=== PATIENT | male | born 1940 | race Caucasian/White ===

== ENCOUNTER 2020-03-29 15:00 | Inpatient (IN) | payer MEDICARE, SELFPAY ==
[2020-03-29] VITALS (25 sets, daily range): BP systolic 105–166; BP diastolic 73–102; PULSE 73–92; RESP 12–22; TEMP 36.6–37.1; O2SAT 92–100; BMI 30.1
--- NOTE | 2020-03-29 15:09 | ED_ITS ---
Documented by User: [email or web address] Salmeron 03/29/20 16:45 HPI - Abdominal Pain General: Chief Complaint: Abdominal Pain Stated Complaint: possible hernia disruption/ sent from [place] Time Seen by Provider: 03/29/20 15:06 Source: patient Mode of arrival: ambulatory Limitations: no limitations History of Present Illness: HPI narrative: Patient is a 79-year-old male who presents to ED today for an evaluation of a lower abdominal mass/hernia. Patient was initially seen at [facility] and referred to the emergency department for evaluation. Patient tells me he has had a chronic hernia to the area for several years. He states he never has had any form of general surgery evaluation. He states approximately 5 days ago he noticed the mass almost doubl ing in size and states since that time he has not been able to have a bowel movement. He reports passing minimal gas. Has not had any vomiting. He denies fever/chills/body aches. MD elicited complaint: abdominal pain Pain Consistency: constant Associated Symptoms: Reports constipation (no BM in 5 days); Denies chills, fever(s), nausea and vomiting Review of Systems Const: Denies: fever(s), chills, body aches or malaise Card: Denies: chest pain Resp: Denies: dyspnea GI: Reports: abdominal pain and constipation (no BM in 5 days); Denies: nausea or vomiting : Reports: urinary dribbling Musc: Denies: neck pain or back pain Skin/Breast: Denies: rash Neuro: Denies: headache(s), numbness in extremities, weakness in extremities or sensory changes [facility] ED PFSH: Medical History Anasarca ASHD (arteriosclerotic heart disease) Cardiomyopathy CHF (congestive heart failure) Cleft palate and cleft lip Diabetes Dyslipidemia HTN (hypertension) Myocardial infarction Surgical History Cleft palate Surgically repaired History of tonsillectomy Leg fracture, left Lower leg fractures repaired with rods and bone grafts S/P PTCA (percutaneous transluminal coronary angioplasty) Family History Other Diabetes Social History Smoking and tobacco status: never smoked Alcohol intake: current Alcohol intake frequency: holidays/special occasions only Household members: spouse Marital status: Physical Exam Const: COMMON NORMALS: no acute distress, patient oriented x3, no limitations and alert GI: OTHER: pt has extremely R > L inguinal hernias (hernia is almost a foot in diameter); mass is hard and erythematous with overlying warmth; the mass is so edematous that pts testicles and penis are embedded into it Extremity: OTHER: bilateral LE pitting edema that pt states is chronic Neuro: COMMON NORMALS: patient oriented x3 SENSORIUM/ORIENTATION: Yes alert Course Consultations: Consultation #1: Dr. Mooney has spoken to Dr. Edmonds who evaluated patient in ED and will take to OR Vital Signs: Vital signs: Vital Signs Temperature 98.8 F 03/29/20 15:07 Pulse Rate 89 03/29/20 18:13 Respiratory Rate 22 H 03/29/20 16:04 Blood Pressure 166/102 03/29/20 16:04 Pulse Oximetry 95 03/29/20 18:13 MDM - Abdominal Pain MDM Narrative: Medical decision making narrative: Dr. Mooney also evaluated patient and agrees with pending workup. We have already spoken to Dr. Edmonds who will come see patient in ED in between surgeries. Lab Data: Labs: Lab Results 03/29/20 03/29/20 03/29/20 Range/Units 15:28 15:28 15:28 WBC 9.5 (4.0-10.0) 10^3/ uL RBC 4.27 (4.1-5.3) 10^6/u L Hgb 12.0 (11.7-16.6) g/dL Hct 37.0 L (42.0-52.0) % MCV 86.7 (80-94) fL MCH 28.1 (28.0-34.0) pg MCHC 32.4 (30.0-36.0) g/dL RDW 15.5 H (12.1-15.1) % Plt Count 259 (130-400) 10^3/c mm MPV 11.5 H (7.4-10.4) fL Neut % (Auto) 79.1 % Lymph % (Auto) 13.9 % [place] % (Auto) 5.9 % Eos % (Auto) 0.3 % Baso % (Auto) 0.4 % Neut # (Auto) 7.52 (1.8-7.7) 10^3/u L Lymph # (Auto) 1.3 (0.8-4.8) 10^3/u L [place] # (Auto) 0.6 (0.2-0.9) 10^3/u L Eos # (Auto) 0.0 (0.0-0.8) 10^3/u L Baso # (Auto) 0.0 (0.0-0.1) 10^3/u L Nucleated RBC % (a uto) 0 % Nucleated RBCs # 0.0 /100WBC Sodium 132 L (136-145) mmol/L Potassium 4.6 (3.5-5.1) mmol/L Chloride 94 L (98-107) mmol/L Carbon Dioxide 26 (22-29) mmol/L Anion Gap 16.6 (5-19) BUN 26 H (8-23) mg/dL Creatinine 1.4 H (0.7-1.2) mg/dL GFR Calculation Not Reportable Glucose 252 H (65-115) mg/dL Estimat Average Gl ucose Hemoglobin A1c (4.0-6.0) % Calculated Osmolal ity 279 L (285-295) mOsm/k g Lactic Acid 1.6 (0.5-2.2) mmol/L Calcium 10.2 (8.5-10.5) mg/dL Total Bilirubin 1.0 (0.15-1.2) mg/dL AST 28 (0-40) U/L ALT 19 (0-41) U/L Alkaline Phosphata se 204 H (40-130) IU/L NT-Pro-B Natriuret Pep 6647 H (0-450) pg/mL Total Protein 8.7 (6.6-8.7) g/dL Albumin 4.2 (3.5-5.2) g/dL Globulin 4.5 (1.3-4.6) g/dL 03/29/20 Range/Units 15:28 WBC (4.0-10.0) 10^3/ uL RBC (4.1-5.3) 10^6/u L Hgb (11.7-16.6) g/dL Hct (42.0-52.0) % MCV (80-94) fL MCH (28.0-34.0) pg MCHC (30.0-36.0) g/dL RDW (12.1-15.1) % Plt Count (130-400) 10^3/c mm MPV (7.4-10.4) fL Neut % (Auto) % Lymph % (Auto) % [place] % (Auto) % Eos % (Auto) % Baso % (Auto) % Neut # (Auto) (1.8-7.7) 10^3/u L Lymph # (Auto) (0.8-4.8) 10^3/u L [place] # (Auto) (0.2-0.9) 10^3/u L Eos # (Auto) (0.0-0.8) 10^3/u L Baso # (Auto) (0.0-0.1) 10^3/u L Nucleated RBC % (a uto) % Nucleated RBCs # /100WBC Sodium (136-145) mmol/L Potassium (3.5-5.1) mmol/L Chloride (98-107) mmol/L Carbon Dioxide (22-29) mmol/L Anion Gap (5-19) BUN (8-23) mg/dL Creatinine (0.7-1.2) mg/dL GFR Calculation Glucose (65-115) mg/dL Estimat Average Gl ucose 200 Hemoglobin A1c 8.6 H (4.0-6.0) % Calculated Osmolal ity (285-295) mOsm/k g Lactic Acid (0.5-2.2) mmol/L Calcium (8.5-10.5) mg/dL Total Bilirubin (0.15-1.2) mg/dL AST (0-40) U/L ALT (0-41) U/L Alkaline Phosphata se (40-130) IU/L NT-Pro-B Natriuret Pep (0-450) pg/mL Total Protein (6.6-8.7) g/dL Albumin (3.5-5.2) g/dL Globulin (1.3-4.6) g/dL Imaging Data ^: CXR: Radiologist's impression: [address] [place] [address] XRay Report Signed Patient: Rhett Cotto Unit #: [id number] : 1940 Age/Sex: 79 / M ADM Date: 03/29/20 Loc: ER Room/Bed: Attending Dr: Ordering Provider/Ordering MD: Ritu Glover Date of Service: 03/29/20 Procedure(s): XR chest 1V portable [id number] Accession Number(s): [id number] Report Number: [id number] PROCEDURE INFORMATION: Exam: XR Chest, 1 View Exam date and time: 03/29/2020 4:05 PM Age: 79 years old Clinical indication: Pre-operative exam; Cardiovascular screening and respiratory screening exam; Additional info: Admission/surgery, pre op TECHNIQUE: Imaging protocol: XR of the chest Views: 1 view. COMPARISON: CR XR chest 2V* [id number] 02/10/2020 10:33 AM FINDINGS: Lungs: Unremarkable. No consolidation. Pleural space: Unremarkable. No obvious pleural effusion. No pneumothorax. Heart/Mediastinum: Mild cardiomegaly, unchanged. Vasculature: Tortuous aorta. Moderate aortic arch atherosclerotic calcification. Bones/joints: Unremarkable. XR/XR chest 1V portable [id number] IMPRESSION: No acute process evident. Stable mild cardiomegaly. Dictated By: Chase Watson MD Signed By: Chase Watson MD Signed Date/Time: 03/29/20 1642 DD/ 1640 Discharge Plan Discharge Patient Disposition: Admitted As Inpatient Clinical Impression: Incarcerated inguinal hernia Condition: Stable Referrals: Jose Manuel Mooney MD [Primary Care Provider] - Discharge Date/Time: 03/29/20 18:12 Sign Out Sign Out Data: Patient Sign Out occurred on 03/29/20 at 17:10. Patient's care was discussed, and care was transferred from to [facility]. Coding Level of Care Code ED Cake Winder for Chg Fwd Exam Problem Focused Documented by User: Sophie Mooney 03/29/20 19:51 HPI - Abdominal Pain General: Chief Complaint: Abdominal Pain Stated Complaint: possible hernia disruption/ sent from [place] Time Seen by Provider: 03/29/20 15:06 [facility] ED PFSH: Medical History Anasarca ASHD (arteriosclerotic heart disease) Cardiomyopathy CHF (congestive heart failure) Cleft palate and cleft lip Diabetes Dyslipidemia HTN (hypertension) Myocardial infarction Surgical History Cleft palate Surgically repaired History of tonsillectomy Leg fracture, left Lower leg fractures repaired with rods and bone grafts S/P PTCA (percutaneous transluminal coronary angioplasty) Family History Other Diabetes Social History Smoking and tobacco status: never smoked Alcohol intake: current Alcohol intake frequency: holidays/special occasions only Household members: spouse Marital status: Course Vital Signs: Vital signs: Vital Signs Temperature 98.8 F 03/29/20 15:07 Pulse Rate 89 03/29/20 18:13 Respiratory Rate 22 H 03/29/20 16:04 Blood Pressure 166/102 03/29/20 16:04 Pulse Oximetry 95 03/29/20 18:13 MDM - Abdominal Pain MDM Narrative: Medical decision making narrative: Patient was seen and evaluated by me I agree with Ritu Glover PAs assessment and plan. Patient has a large hernia that was made much worse after he was straining on the commode to have a bowel movement. This is been going on for the past few days. Patient's been seen and examined by Dr. Edmonds with the plan to take to surgery. Dr. Zaman is been consulted and will see the patient for medical management. Lab Data: Attestation: I reviewed the patient's lab results. Labs: Lab Results 03/29/20 03/29/20 03/29/20 Range/Units 15:28 15:28 15:28 WBC 9.5 (4.0-10.0) 10^3/ uL RBC 4.27 (4.1-5.3) 10^6/u L Hgb 12.0 (11.7-16.6) g/dL Hct 37.0 L (42.0-52.0) % MCV 86.7 (80-94) fL MCH 28.1 (28.0-34.0) pg MCHC 32.4 (30.0-36.0) g/dL RDW 15.5 H (12.1-15.1) % Plt Count 259 (130-400) 10^3/c mm MPV 11.5 H (7.4-10.4) fL Neut % (Auto) 79.1 % Lymph % (Auto) 13.9 % [place] % (Auto) 5.9 % Eos % (Auto) 0.3 % Baso % (Auto) 0.4 % Neut # (Auto) 7.52 (1.8-7.7) 10^3/u L Lymph # (Auto) 1.3 (0.8-4.8) 10^3/u L [place] # (Auto) 0.6 (0.2-0.9) 10^3/u L Eos # (Auto) 0.0 (0.0-0.8) 10^3/u L Baso # (Auto) 0.0 (0.0-0.1) 10^3/u L Nucleated RBC % (a uto) 0 % Nucleated RBCs # 0.0 /100WBC Sodium 132 L (136-145) mmol/L Potassium 4.6 (3.5-5.1) mmol/L Chloride 94 L (98-107) mmol/L Carbon Dioxide 26 (22-29) mmol/L Anion Gap 16.6 (5-19) BUN 26 H (8-23) mg/dL Creatinine 1.4 H (0.7-1.2) mg/dL GFR Calculation Not Reportable Glucose 252 H (65-115) mg/dL Estimat Average Gl ucose Hemoglobin A1c (4.0-6.0) % Calculated Osmolal ity 279 L (285-295) mOsm/k g Lactic Acid 1.6 (0.5-2.2) mmol/L Calcium 10.2 (8.5-10.5) mg/dL Total Bilirubin 1.0 (0.15-1.2) mg/dL AST 28 (0-40) U/L ALT 19 (0-41) U/L Alkaline Phosphata se 204 H (40-130) IU/L NT-Pro-B Natriuret Pep 6647 H (0-450) pg/mL Total Protein 8.7 (6.6-8.7) g/dL Albumin 4.2 (3.5-5.2) g/dL Globulin 4.5 (1.3-4.6) g/dL 03/29/20 Range/Units 15:28 WBC (4.0-10.0) 10^3/ uL RBC (4.1-5.3) 10^6/u L Hgb (11.7-16.6) g/dL Hct (42.0-52.0) % MCV (80-94) fL MCH (28.0-34.0) pg MCHC (30.0-36.0) g/dL RDW (12.1-15.1) % Plt Count (130-400) 10^3/c mm MPV (7.4-10.4) fL Neut % (Auto) % Lymph % (Auto) % [place] % (Auto) % Eos % (Auto) % Baso % (Auto) % Neut # (Auto) (1.8-7.7) 10^3/u L Lymph # (Auto) (0.8-4.8) 10^3/u L [place] # (Auto) (0.2-0.9) 10^3/u L Eos # (Auto) (0.0-0.8) 10^3/u L Baso # (Auto) (0.0-0.1) 10^3/u L Nucleated RBC % (a uto) % Nucleated RBCs # /100WBC Sodium (136-145) mmol/L Potassium (3.5-5.1) mmol/L Chloride (98-107) mmol/L Carbon Dioxide (22-29) mmol/L Anion Gap (5-19) BUN (8-23) mg/dL Creatinine (0.7-1.2) mg/dL GFR Calculation Glucose (65-115) mg/dL Estimat Average Gl ucose 200 Hemoglobin A1c 8.6 H (4.0-6.0) % Calculated Osmolal ity (285-295) mOsm/k g Lactic Acid (0.5-2.2) mmol/L Calcium (8.5-10.5) mg/dL Total Bilirubin (0.15-1.2) mg/dL AST (0-40) U/L ALT (0-41) U/L Alkaline Phosphata se (40-130) IU/L NT-Pro-B Natriuret Pep (0-450) pg/mL Total Protein (6.6-8.7) g/dL Albumin (3.5-5.2) g/dL Globulin (1.3-4.6) g/dL Discharge Plan Discharge Patient Disposition: Admitted As Inpatient Clinical Impression: Incarcerated inguinal hernia Condition: Stable Referrals: Jose Manuel Mooney MD [Primary Care Provider] - Discharge Date/Time: 03/29/20 18:12 Sign Out Sign Out Data: Patient Sign Out occurred on 03/29/20 at 17:10. Patient's care was discussed, and care was transferred from to [facility]. Coding Level of Care Code ED Cake Winder for Chg Fwd Exam Problem Focused
--- NOTE | 2020-03-29 15:15 | CTR_ITS ---
PROCEDURE INFORMATION: Exam: CT Abdomen And Pelvis With Contrast Exam date and time: 03/29/2020 4:03 PM Age: 79 years old Clinical indication: Abdominal tenderness and constipation and nausea and vomiting; Additional info: Large pelvic mass/hernia/pain/constipation TECHNIQUE: Imaging protocol: Computed tomography of the abdomen and pelvis with intravenous contrast. Radiation optimization: All CT scans at this facility use at least one of these dose optimization techniques: automated exposure control; mA and/or kV adjustment per patient size (includes targeted exams where dose is matched to clinical indication); or iterative reconstruction. Contrast material: VISI; Contrast volume: 95 ml; Contrast route: INTRAVENOUS (IV); COMPARISON: No relevant prior studies available. RADIATION DOSE METRICS: Total DLP (mGy-cm): 1574.7 FINDINGS: Liver: Normal. No mass. Gallbladder and bile ducts: Normal. No calcified stones. No ductal dilation. Pancreas: Normal. No ductal dilation. Spleen: Normal. No splenomegaly. Adrenals: Normal. No mass. Kidneys and ureters: 7 and 3.2 cm simple appearing right renal cysts. Left kidney contains 3 subcm low-density probable cysts. Stomach and bowel: See Soft tissues finding. Appendix: No evidence of appendicitis. Intraperitoneal space: See Soft tissues finding. Vasculature: Tortuous aorta and iliac arteries with mild to moderate atherosclerotic calcification. Considerable atherosclerotic calcification both proximal renal arteries with possible focal stenoses. Lymph nodes: Unremarkable. No enlarged lymph nodes. Bladder: Unremarkable as visualized. Reproductive: Mildly enlarged prostate with posterior calcifications, chronic. Bones/joints: No acute fracture. Soft tissues: Large right inguinal hernia. Right inguinal hernia sac measures 24 x 19 x 15 cm and fills the scrotum. Sac contains loops of distal small bowel and associated mesentery as well as cecum and portion of appendix. Hernia resulting in at least a partial small bowel obstruction with fluid dilated loops of overlying intraperitoneal mid small bowel and transition zone at level of hernia neck. Hernia sac contains a moderate amount of ascites suggesting incarceration or less likely strangulation. Smaller 8-9 cm uncomplicated left inguinal hernia containing portion of left colon. CT/CT abdomen pelvis w con* [id number] IMPRESSION: 1.) Large right inguinal hernia. Hernia sac contains loops of distal small bowel and associated mesentery as well as cecum and portion of appendix. Hernia resulting in at least a partial small bowel obstruction with fluid dilated loops of overlying intraperitoneal mid small bowel and transition zone at level of hernia neck. Hernia sac contains a moderate amount of ascites suggesting incarceration or less likely strangulation. 2.) Several cm uncomplicated left inguinal hernia containing portion of left colon. 3.) Additional chronic findings as described above. COMMENTS: Consistent with the [place] [employer]'s Incidental Findings Committee white paper (J Am Pilar Radiol 2018): Any incidental renal lesion less than 1 cm or classified as too small to characterize, or any incidental cystic renal lesion characterized as simple-appearing, is likely benign. No follow-up imaging is recommended for these lesions per consensus recommendations based on imaging criteria. Radiation Dose CTDIVOL = (mGy): DLP = 1574.7 (mGy-cm)
--- NOTE | 2020-03-29 15:27 | XRR_ITS ---
PROCEDURE INFORMATION: Exam: XR Chest, 1 View Exam date and time: 03/29/2020 4:05 PM Age: 79 years old Clinical indication: Pre-operative exam; Cardiovascular screening and respiratory screening exam; Additional info: Admission/surgery, pre op TECHNIQUE: Imaging protocol: XR of the chest Views: 1 view. COMPARISON: CR XR chest 2V* [id number] 02/10/2020 10:33 AM FINDINGS: Lungs: Unremarkable. No consolidation. Pleural space: Unremarkable. No obvious pleural effusion. No pneumothorax. Heart/Mediastinum: Mild cardiomegaly, unchanged. Vasculature: Tortuous aorta. Moderate aortic arch atherosclerotic calcification. Bones/joints: Unremarkable. XR/XR chest 1V portable [id number] IMPRESSION: No acute process evident. Stable mild cardiomegaly.
--- NOTE | 2020-03-29 15:27 | ECG_ITS ---
[facility] Test Date: 2020-03-29 Pat Name: Rhett Cotto Department: Room: Gender: Male Protein Specialist: : 1940 Requested By: Ritu Glover Order Number: [id number] Russ MD: Ashlie Kirk M.D. Measurements Intervals [place] Rate: 90 P: ME: -1 QRS: -37 QRSD: 157 T: 97 QT: 371 QTc: 455 Interpretive Statements Normal sinus rhythm INTRAVENTRICULAR CONDUCTION DELAY [130+ ms QRS DURATION] LATERAL MYOCARDIAL INFARCTION , PROBABLY OLD [40+ ms Q WAVE AND/OR ST/T ABNORMALITY IN I/aVL/V5/V6] INFERIOR MYOCARDIAL INFARCTION , OF INDETERMINATE AGE [40+ ms Q WAVE AND/OR ST/T ABNORMALITY IN II/aVF] Compared to ECG 05/03/2017 10:42:37 Intraventricular conduction delay now present Sinus rhythm no longer present Myocardial infarct finding still present Electronically Signed On 03-29-2020 20:09:42 CDT by Ashlie Kirk M.D. [id number]
[2020-03-29 15:39] LABS: Basophils % 0.4 %; Eosinophils % 0.3 %; Lymphocytes # 1.3 10^3/uL (0.8-4.8); Lymphocytes % 13.9 %; Mean Corpuscular HGB Conc 32.4 g/dL (30.0-36.0); Mean Corpuscular Hemoglobin 28.1 pg (28.0-34.0); Mean Corpuscular Volume 86.7 fL (80-94); Mean Platelet Volume 11.5 fL (7.4-10.4); Monocytes # 0.6 10^3/uL (0.2-0.9); Monocytes % 5.9 %; Neutrophils # 7.52 10^3/uL (1.8-7.7); Neutrophils % 79.1 %; Nucleated Red Blood Cells % 0 %; Platelet Count 259 10^3/cmm (130-400); Red Blood Count 4.27 10^6/uL (4.1-5.3); Red Cell Distribution Width 15.5 % (12.1-15.1); White Blood Count 9.5 10^3/uL (4.0-10.0)
[2020-03-29 15:57] LABS: Lactic Sepsis W/Reflex 1.6 mmol/L (0.5-2.2)
[2020-03-29] MEDS: ondansetron 2 mg/ML SDV 2 mL 4 MG IVP (15:57)
--- NOTE | 2020-03-29 15:58 | P.HP_ITS ---
Providers/Chief Complaint Primary Care Provider: Jose Manuel Mooney MD Chief Complaint: possible hernia disruption/ sent from [place] History of Present Illness Rhett Cotto is a 79 year old male who has known about some bilateral inguinal hernias for perhaps 20 years. They never gave him much in the way of problems but he says this past weekend he became constipated and did not have a bowel movement on Friday. He apparently took some laxatives Friday night and was trying to strain on the commode on Friday (3 days ago) and felt something tear and his scrotum went from what he considers normal size to very large. He has been at home for the last 3 days in pain, but was stubborn according to his and did not want to go see the doctor. He has been passing very little flatus and has not had any bowel movements. Despite that, he says that he has not been nauseated and has not vomited. He did eat some vegetable soup last night. He has been able to urinate, although it is more difficult given the size of his scrotum with displacement of his penis. He denies any fevers or chills. Review of Systems General: Reports: 10 or more systems reviewed and unremarkable except in HPI and below Card: Reports: edema and swelling of feet/ankles (Chronic) GI: Reports: abdominal pain Medications/Allergies Home Medications Medication Instructions Recorded Confirmed Last Taken Type aspirin 81 mg tablet,delayed 81 mg PO DAILY 11/22/19 03/29/20 03/28/20 History release furosemide 40 mg tablet 40 mg PO BID tab 11/23/19 03/29/20 03/28/20 History metformin 500 mg tablet 500 mg PO DAILY 11/23/19 03/29/20 03/28/20 History potassium chloride 10 mEq 10 meq PO BID tab 11/23/19 03/29/20 03/28/20 History tablet,extended release spironolactone 25 mg PO DAILY 03/29/20 03/29/20 Unknown History Allergies Allergy/AdvReac Type Severity Reaction Status Date / Time No Known Allergies Allergy Verified 03/29/20 15:40 PFSH Acute PFSH: Medical History (Updated 03/29/20 @ 16:11 by Neto Edmonds MD) Anasarca ASHD (arteriosclerotic heart disease) Cardiomyopathy CHF (congestive heart failure) Cleft palate and cleft lip Diabetes Dyslipidemia HTN (hypertension) Myocardial infarction Surgical History (Updated 03/29/20 @ 17:12 by Neto Edmonds MD) Cleft palate Surgically repaired History of tonsillectomy Leg fracture, left Lower leg fractures repaired with rods and bone grafts S/P PTCA (percutaneous transluminal coronary angioplasty) Family History Other Diabetes Social History Smoking and tobacco status: never smoked Alcohol intake: current Alcohol intake frequency: holidays/special occasions only Household members: spouse Marital status: Vitals/I&O/Wt Last Vital Signs Temp 98.8 F 03/29/20 15:07 Pulse 88 03/29/20 15:07 Resp 18 03/29/20 15:07 BP 166/102 03/29/20 15:07 Pulse Ox 94 03/29/20 15:07 Weight last 48 hrs Weight 210 lb Physical Exam Narrative: EXAM NARRATIVE: The patient was encountered in the emergency room. He does not appear to be in any acute distress but seems a little uncomfortable when he tries to move around. He seems to have a mild speech impediment from his cleft palate history, and between that and him having to wear a mask (COVID- 19 precautions) he is somewhat difficult to understand at times. The pupils are equal. No carotid bruits are heard. The lungs seem clear anteriorly. The heart is regular. The abdomen is somewhat protuberant and mildly firm but relatively nontender. He does have some hyperactive bowel sounds and certainly more tenderness as I move down toward the right inguinal region. He has obvious bilateral inguinal hernias but his scrotum is literally the size of a soccer ball and I suspect the majority of contents are coming from the right side. He does have tenderness more as I move down into the right inguinal region. The extremities reveal some mild to moderate pitting edema. He does have some superficial wounds on the left lower leg which he indicates are relatively chronic. Neurologically he appears to be grossly intact. Data : 03/29/20 15:28 03/29/20 15:28 Micro: Microbiology 03/29/20 15:28 Blood Culture - Preliminary Blood SPECIMEN COLLECTED CT Abd/Pel: My impression: The patient has bilateral inguinal hernias. The right side is considerably larger and the majority of intestinal contents are coming from this side. It looks like his ileum and the cecum are incarcerated within the hernia with some fecalization of the cecal contents, and a very decompressed ascending colon, along with dilated small bowel more proximally. A&P Assessment and plan (1) Incarcerated right inguinal hernia: I made the patient aware that this is going to be a sizable operation given the size of the hernias and how much bowel he has outside of the abdominal cavity. Risks of surgery including bleeding, infection, anesthetic risks, cardiac complications, etc. were all discussed. The patient seems to understand and agrees to proceed. I am going to try to have the hospitalist service/cardiology see him preoperatively regarding all of his other medical issues to make sure that they do not have any urgent recommendations, since it now appears we are going to be a little delayed getting into the operating room due to low staffing and ongoing cases at this hour. Status: Acute (2) Bowel obstruction: The patient has at least a partial high-grade bowel obstruction from the presence of his incarcerated right inguinal hernia. Status: Acute (3) Bilateral inguinal hernia: The patient has known about these for perhaps 20 years, but states an abrupt change 72 hours ago. Status: Acute Attestations Medical Necessity Statement*: Based on my medical assessment, presenting symptoms, medical accuity and consideration of surgical therapy, I expect this patient will require treatment in the hospital for a period spanning at least 2 midnights. Coding Level of Care Code Acute Disease Case Manager for [facility] Diagnoses Incarcerated right inguinal hernia K40.30 Bowel obstruction K56.609 Bilateral inguinal hernia K40.20
[2020-03-29] MEDS: morphine 4 mg/mL SDV 1 mL IVP (16:03)
[2020-03-29 16:04] LABS: Alanine Aminotransferase 19 U/L (0-41); Albumin Level 4.2 g/dL (3.5-5.2); Alkaline Phosphatase 204 IU/L (40-130); Anion Gap 16.6 (5-19); Aspartate Amino Transferase 28 U/L (0-40); Blood Urea Nitrogen 26 mg/dL (8-23); Calcium 10.2 mg/dL (8.5-10.5); Carbon Dioxide 26 mmol/L (22-29); Chloride 94 mmol/L (98-107); Globulin 4.5 g/dL (1.3-4.6); Glucose 252 mg/dL (65-115); NT Pro B Type Natriuretic Pept 6647 pg/mL (0-450); Osmolality Calculated 279 mOsm/kg (285-295); Potassium 4.6 mmol/L (3.5-5.1); Sodium 132 mmol/L (136-145); Total Protein 8.7 g/dL (6.6-8.7)
[2020-03-29] MEDS: iodixanol 320 mg/mL 100mL Btl IV (16:15)
--- NOTE | 2020-03-29 17:36 | PM.HP ---
Providers/Chief Complaint Primary Care Provider: Jose Manuel Mooeny MD Chief Complaint: possible hernia disruption/ sent from [place] History of Present Illness Rhett Cotto is a 79 year old male type 2 diabetes mellitus, stage IV CHF, CAD, hyperlipidemia, hypertension, inguinal hernia who presents to [facility] due to constipation, abdominal pain, concerns for incarcerated inguinal hernia. Patient states that for the last few days he is been dealing with severe constipation, he took a few laxatives, but was not able to move his bowels, this afternoon he sat on the toilet toilet commode and started to strain, went his bowel prolapse into his testicle. He had severe pain, nausea, and abdominal pain, thus he came to the emergency room. In terms of his cardiac history, upon review of medical records, patient had a cardiac catheterization performed on January 10, 2014, RCA was occluded, least 50% LM lesion, severe left ventricular dysfunction at 30%, high right-sided pressures. Patient tells me that he follows up with aging box hand at [facility], sees Dr. Leroy, but it is been since sometime since he seen cardiology, all he really takes is aspirin and Lasix and spironolactone. He has not had any recent echocardiogram that I can see. No history of stent placement since then. No history of open heart surgery. No recent history of stress testing since then. Patient tells me that he does get intermittent shortness of breath with exertion, denies feeling more short of breath recently, no fevers, no cough, no lightheadedness, no dizziness, no orthopnea, no paroxysmal nocturnal dyspnea. Patient does have complaints of bilateral lower extremity edema, which are chronic, he takes Lasix, but has persistent edema. Patient also tells me that he has intermittent dull achy pain in the left side of his chest, with palpitation especially with exertion. Nonradiating, no lightheadedness, no dizziness, no nausea, no vomiting, occur intermittently with exertion, has not been occurring more frequently, pain typically lasts as long as he exerts himself, improves with rest. Denies any fevers, cough, exposure to COVID-19. Denies a history of strokes. Denies a history of COPD. Denies any history of lung disease. Denies history of DVTs or PEs. Denies any history of issues with anesthesia. Does have a history of type 2 diabetes mellitus, is not on insulin, says his sugars are typically between 140s to 150s, he does have a left lower extremity mo ulcer, that is healing. Review of Systems Const: Denies: fever(s), chills, fatigue or malaise Eyes: Denies: change in vision or blurry vision ENMT: Denies: nasal congestion Card: Reports: chest pain, palpitations and dyspnea on exertion; Denies: lightheadedness Resp: Reports: dyspnea; Denies: productive cough, non-productive cough or wheezing GI: Denies: abdominal pain, nausea, vomiting, hematemesis, diarrhea, constipation, hematochezia or melena : Denies: flank pain, difficulty urinating, dysuria or urinary frequency Musc: Denies: neck pain or back pain Skin/Breast: Denies: rash Neuro: Denies: headache(s), dizziness or vertigo Psych: Denies: anxiety or depression Endo: Denies: polyuria or polydipsia Medications/Allergies Home Medications Medication Instructions Recorded Confirmed Last Taken Type aspirin 81 mg tablet,delayed 81 mg PO DAILY 11/22/19 03/29/20 03/28/20 History release furosemide 40 mg tablet 60 mg PO BID tab 11/23/19 03/29/20 03/28/20 History metformin 500 mg tablet 500 mg PO BID 11/23/19 03/29/20 03/28/20 History potassium chloride 10 mEq 20 meq PO BID tab 11/23/19 03/29/20 03/28/20 History tablet,extended release spironolactone 25 mg PO DAILY 03/29/20 03/29/20 Unknown History Allergies Allergy/AdvReac Type Severity Reaction Status Date / Time No Known Allergies Allergy Verified 03/29/20 15:40 PFSH Acute PFSH: Medical History (Updated 03/29/20 @ 17:44 by Nathan Zaman MD) Anasarca ASHD (arteriosclerotic heart disease) Cardiomyopathy CHF (congestive heart failure) Cleft palate and cleft lip Diabetes Dyslipidemia HTN (hypertension) Myocardial infarction Surgical History (Updated 03/29/20 @ 17:12 by Neto Edmonds MD) Cleft palate Surgically repaired History of tonsillectomy Leg fracture, left Lower leg fractures repaired with rods and bone grafts S/P PTCA (percutaneous transluminal coronary angioplasty) Family History Other Diabetes Social History Smoking and tobacco status: never smoked Alcohol intake: current Alcohol intake frequency: holidays/special occasions only Household members: spouse Marital status: Vitals/I&O/Wt Last Vital Signs Temp 98.8 F 03/29/20 15:07 Pulse 92 03/29/20 16:04 Resp 22 H 03/29/20 16:04 BP 166/102 03/29/20 16:04 Pulse Ox 92 03/29/20 16:04 Weight last 48 hrs Weight 95.254 kg Physical Exam Const: COMMON NORMALS: no acute distress and patient oriented x3 GENERAL APPEARANCE: cooperative and comfortable HENMT: COMMON NORMALS: normocephalic HEAD & SCALP: normocephalic Eye: COMMON NORMALS: Equal, round and reactive pupils present and EOMs intact bilaterally GENERAL EYE: appearance normal, both eyes and all related structures PUPIL: Yes Equal, round and reactive pupils present Neck/C-Spine: COMMON NORMALS: full ROM, no lymphadenopathy, no JVD and Thyroid normal THYROID: Thyroid normal Lymph: LYMPHATIC: no lymphadenopathy noted Resp: COMMON NORMALS: normal respiratory effort, No retractions, No use of accessory muscles and clear to auscultation bilaterally AUSCULTATION: clear to auscultation bilaterally Cardio: COMMON NORMALS: no JVD, regular rate, regular rhythm, S1 normal heart sound present, S2 normal heart sound present, No gallops present (Cardio), No clicks present (Cardio) and No murmurs present (Cardio) RATE: regular rate RHYTHM: regular rhythm HEART SOUNDS: S1 normal heart sound present and S2 normal heart sound present GI: COMMON NORMALS: Normal to inspection, nondistended, normoactive bowel sounds present, Soft to palpation, non-tender and No hepatosplenomegaly present AUSCULTATION: Yes Hypoactive bowel sounds present PALPATION: Yes Tenderness to palpation present (GI) (Generalized tenderness) PERCUSSION: normal to percussion : TESTES: Yes testicular swelling OTHER: Penis is not visible, has significant testicular swelling, with palpable loops of bowel Extremity: COMMON NORMALS: normal to inspection, full ROM and no pedal edema Neuro: COMMON NORMALS: patient oriented x3, CN's II-XII intact bilaterally, moves all extremities and no focal motor deficits Psych: COMMON NORMALS: mental status grossly normal, Normal thought process present and cooperative THOUGHT PROCESS: Normal thought process present Data : 03/29/20 15:28 03/29/20 15:28 Micro: Microbiology 03/29/20 15:58 Blood Culture - Preliminary Blood SPECIMEN COLLECTED 03/29/20 15:28 Blood Culture - Preliminary Blood SPECIMEN COLLECTED A&P Assessment and plan (1) Incarcerated right inguinal hernia: -CT scan shows;1.) Large right inguinal hernia. Hernia sac contains loops of distal small bowel and associated mesentery as well as cecum and portion of appendix. Hernia resulting in at least a partial small bowel obstruction with fluid dilated loops of overlying intraperitoneal mid small bowel and transition zone at level of hernia neck. Hernia sac contains a moderate amount of ascites suggesting incarceration or less likely strangulation. 2.) Several cm uncomplicated left inguinal hernia containing portion of left colon. 3.) Additional chronic findings as described above. -No history of stroke, no history of COPD, no history of smoking, no history of DVT or PE, no history of problems with anesthesia in the past, has CKD stage undetermined -Has a history of type 2 diabetes mellitus -Has a history of CHF, systolic, no history of echocardiogram recently, but did have a cardiac catheterization in December 2013 with a EF of 30%, currently BNP is 6647, bilateral minimal crackles heard on exam, 2+ pitting edema, but denies shortness of breath -Has a history of CAD, cardiac cath on December 2013, LAD normal, left circumflex normal, RCA chronic occlusion ostial, ramus normal, left MCA single stenosis 60%, currently medically managed -Has not follow-up with cardiology in some time -Patient's EKG shows Q waves in the inferior leads, Q waves in the anterior chest leads -Given patient's incarcerated right inguinal hernia, this is a surgical emergency -I had an extensive discussion with patient and his , I advised him that given his cardiac status, he is a at a moderate risk for a moderate risk surgery -I was very clear with patient and , that he does have moderate risk of having an adverse event, including but not limited to a cardiovascular event, stroke, etc. during surgery, but given the urgent need for surgery, we have to weigh the risks and benefits, and currently he requires surgery -I advised patient and his , as there are concerns for incarcerated inguinal hernia, there is risk of ongoing ischemia to his bowel, which is associated significant morbidity and mortality, and that urgent surgical intervention is the only reasonable option -After discussion of the risks and benefits of surgical intervention, all questions answered, voiced understanding, patient and family agreed to proceed with surgical intervention -I advised patient that it is possible that he might remain on mechanical ventilation after surgery, voiced understanding, all questions answered, agreed to proceed -Patient wants to be a full code, okay with all intervention, okay with ICU admission Plan: -Dr. Edmonds has been consulted for surgery -I have consulted cardiology, Dr. Araujo -Patient does look slightly fluid overloaded after surgery, we will have to monitor respiratory status closely, start Lasix 40 mg IV twice daily postop -We will repeat echocardiogram -We will leave up beta-saira therapy to cardiology -Telemetry monitoring postop, monitor for chest pain, monitor respiratory status, oxygen therapy as needed Status: Acute (2) Type 2 diabetes mellitus: -Insulin sliding scale, check hemoglobin A1c Status: Acute (3) Hyperlipidemia: -Check lipid panel Status: Acute (4) Systolic heart failure: Status: Acute (5) ASHD (arteriosclerotic heart disease): Status: Acute (6) HTN (hypertension): Status: Acute (7) CKD (chronic kidney disease): -Baseline creatinine is roughly 1.4, currently at baseline Status: Acute Attestations Medical Necessity Statement*: Patient requires hospitalization, inpatient, greater than 2 midnights, for incarcerated right inguinal hernia, CHF Coding Level of Care Code Acute 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
--- NOTE | 2020-03-29 18:12 | PC.NURSE ---
Pt to surgery at this time accompanied by OR staff x3.
[2020-03-29] MEDS: sodium chloride 0.9% 1,000 ML 30 ML IV (18:14)
[2020-03-29 18:22] LABS: Estmated Average Glucose 200; Hemoglobin A1C 8.6 % (4.0-6.0)
--- NOTE | 2020-03-29 18:44 | P.ANESASSM_ITS ---
Pre-Anesthetic Assessment Pre-Anesthetic Assessment: Height/Weight: Height 1.78 m Weight 95.254 kg Temp Pulse Resp BP Pulse Ox 98.8 F 89 22 H 166/102 95 03/29/20 15:07 03/29/20 18:13 03/29/20 16:04 03/29/20 16:04 03/29/20 18:13 Preop Diagnosis: incarcerated inguinal hernia Proposed Procedure: Operation Date: 03/29/20 18:15 Proposed Procedures p Inguinal Hernia Repair(Bilateral) - Neto Edmonds MD Familial anesthetic complications: none Was Beta Kaya taken within 24 hours: N/A (supplementing w/ metoprolol 5 mg IV per cardiology recommendation) Last intake: NPO > 8 hrs, no nausea Social: Social History: No alcohol Exam: Pre-Anes Outpt Exam: alert, oriented x 3, clear to auscultation bilaterally and regular rate & rhythm Airway: Cervical ROM: WNL MP: 4 Dentition: False Additional comments: cleft palate CV/HEM: CV/HEM: CHF, HTN and HI Comments: 2013 echo ef 30%; severe TR, mod pulm HTN; recent 50 lb water weight gain : : None reported Hepatic: Hepatic: None reported Metabolic: Metabolic: DM Musc/skel: Musc/skel: None reported Neuropsych: Neuropsych: None reported Anesthetic Plan: ASA status: 4E Anesthesia: General Risk of > 500 ml blood loss (7ml/kg in children): No PFSH Anesthesia PFSH: Medical History (Updated 03/29/20 @ 17:44 by Nathan Zaman MD) Anasarca ASHD (arteriosclerotic heart disease) Cardiomyopathy CHF (congestive heart failure) Cleft palate and cleft lip Diabetes Dyslipidemia HTN (hypertension) Myocardial infarction Surgical History (Updated 03/29/20 @ 17:12 by Neto Edmonds MD) Cleft palate Surgically repaired History of tonsillectomy Leg fracture, left Lower leg fractures repaired with rods and bone grafts S/P PTCA (percutaneous transluminal coronary angioplasty) Family History Other Diabetes Social History Smoking and tobacco status: never smoked Alcohol intake: current Alcohol intake frequency: holidays/special occasions only Household members: spouse Marital status: Data Anesthesia CBC & Chem 7: 03/29/20 15:28 03/29/20 15:28 Other Labs: Laboratory Results - last 48 hr 03/29/20 03/29/20 03/29/20 15:28 15:28 15:28 WBC 9.5 RBC 4.27 Hgb 12.0 Hct 37.0 L MCV 86.7 MCH 28.1 MCHC 32.4 RDW 15.5 H Plt Count 259 MPV 11.5 H Neut % (Auto) 79.1 Lymph % (Auto) 13.9 [place] % (Auto) 5.9 Eos % (Auto) 0.3 Baso % (Auto) 0.4 Neut # (Auto) 7.52 Lymph # (Auto) 1.3 [place] # (Auto) 0.6 Eos # (Auto) 0.0 Baso # (Auto) 0.0 Nucleated RBC % (auto) 0 Nucleated RBCs # 0.0 Sodium 132 L Potassium 4.6 Chloride 94 L Carbon Dioxide 26 Anion Gap 16.6 BUN 26 H Creatinine 1.4 H GFR Calculation Not Reportable Glucose 252 H Estimat Average Glucose Hemoglobin A1c Calculated Osmolality 279 L Lactic Acid 1.6 Calcium 10.2 Total Bilirubin 1.0 AST 28 ALT 19 Alkaline Phosphatase 204 H NT-Pro-B Natriuret Pep 6647 H Total Protein 8.7 Albumin 4.2 Globulin 4.5 03/29/20 15:28 WBC RBC Hgb Hct MCV MCH MCHC RDW Plt Count MPV Neut % (Auto) Lymph % (Auto) [place] % (Auto) Eos % (Auto) Baso % (Auto) Neut # (Auto) Lymph # (Auto) [place] # (Auto) Eos # (Auto) Baso # (Auto) Nucleated RBC % (auto) Nucleated RBCs # Sodium Potassium Chloride Carbon Dioxide Anion Gap BUN Creatinine GFR Calculation Glucose Estimat Average Glucose 200 Hemoglobin A1c 8.6 H Calculated Osmolality Lactic Acid Calcium Total Bilirubin AST ALT Alkaline Phosphatase NT-Pro-B Natriuret Pep Total Protein Albumin Globulin Micro: Microbiology 03/29/20 15:58 Blood Culture - Preliminary Blood SPECIMEN COLLECTED 03/29/20 15:28 Blood Culture - Preliminary Blood SPECIMEN COLLECTED Cardiac Studies: No Data to Display
--- NOTE | 2020-03-29 19:27 | P.CONIM_ITS ---
Providers/Reason For Consult Consulting Physican/Specialty*: Stewart Barfield MD Reason for Consult*: Preop clearance for emergent incarcerated hernia surgery Attending Physician: Neto Edmonds MD Primary Care Provider: Jose Manuel Mooney MD History of Present Illness History of Present Illness Rhett Cotto is a 79 year old male past medical history significant for severe LV dysfunction history of ischemic cardiomyopathy, history of systolic heart failure, obesity, history of tobacco abuse, history of peripheral vascular disease diabetes mellitus and CKD presented to ER with lower abdominal pain and swelling diagnosed with incarcerated hernia requiring urgent surgery. We have been asked by our medicine and surgical colleagues for cardiac clearance. Rhett is a patient of Dr. Damon Leroy he denies admits to being volume overloaded in the past few days for which he has taken extra metolazone and he thinks he has lost most of the volume. He says he cannot lay flat in the bed without being short of breath. He denies exertional chest pain but admits to palpitation pounding and racing of the heart. Baseline EKG shows sinus rhythm with interventricular conduction delay. Patient does not know why he is not on beta-saira. He appeared to be hypotensive most likely due to pain his systolic blood pressure is more than 160/90 diastolic heart rate into the 90s. Currently he denies chest pain PND orthopnea presyncope syncope. Meds/Allergies Home Medications and Allergies Home Medications Medication Instructions Recorded Confirmed Last Taken Type aspirin 81 mg tablet,delayed 81 mg PO DAILY 11/22/19 03/29/20 03/28/20 History release furosemide 40 mg tablet 60 mg PO BID tab 11/23/19 03/29/20 03/28/20 History metformin 500 mg tablet 500 mg PO BID 11/23/19 03/29/20 03/28/20 History potassium chloride 10 mEq 20 meq PO BID tab 11/23/19 03/29/20 03/28/20 History tablet,extended release spironolactone 25 mg PO DAILY 03/29/20 03/29/20 Unknown History Allergies Allergy/AdvReac Type Severity Reaction Status Date / Time No Known Allergies Allergy Verified 03/29/20 15:40 PFSH Acute PFSH: Medical History Anasarca ASHD (arteriosclerotic heart disease) Cardiomyopathy CHF (congestive heart failure) Cleft palate and cleft lip Diabetes Dyslipidemia HTN (hypertension) Myocardial infarction Surgical History Cleft palate Surgically repaired History of tonsillectomy Leg fracture, left Lower leg fractures repaired with rods and bone grafts S/P PTCA (percutaneous transluminal coronary angioplasty) Family History Other Diabetes Social History Smoking and tobacco status: never smoked Alcohol intake: current Alcohol intake frequency: holidays/special occasions only Household members: spouse Marital status: Vitals/I&O/Wt Last Vital Signs Temp 98.8 F 03/29/20 15:07 Pulse 89 03/29/20 18:13 Resp 22 H 03/29/20 16:04 BP 166/102 03/29/20 16:04 Pulse Ox 95 03/29/20 18:13 03/29/20 03/29/20 03/29/20 06:59 14:59 22:59 Intake Total 50 / 50 Balance 50 / 50 Weight last 48 hrs Weight 210 lb Physical Exam Narrative: EXAM NARRATIVE: GENERAL: Patient is alert, awake and oriented x3. NECK: No jugular vein distension. HEENT: No cyanosis. No icterus. No pallor. HEART: Regular S1 and S2. No murmur, rub or gallop. LUNGS: Clear to auscultate bilaterally. ABDOMEN: Soft, nontender and nondistended. No bowel sound right side big hernia noted CENTRAL NERVOUS SYSTEM: Grossly nonfocal. EXTREMITIES: Lower extremities with 1+ edema bilaterally. Bilateral venous stasis left side venous ulcer healed and nonhealed Data Labs: Other Labs: Sinus rhythm INTRAVENTRICULAR CONDUCTION DELAY [130+ ms QRS DURATION] LATERAL MYOCARDIAL INFARCTION , PROBABLY OLD [40+ ms Q WAVE AND/OR ST/T ABNORMALITY IN I/aVL/V5/V6] INFERIOR MYOCARDIAL INFARCTION , OF INDETERMINATE AGE [40+ ms Q WAVE AND/OR ST/T ABNORMALITY IN II/aVF] Micro: Micro: Microbiology 03/29/20 15:58 Blood Culture - Pr eliminary Blood SPECIMEN [facility] 03/29/20 15:28 Blood Culture - Pr eliminary Blood SPECIMEN [facility] A&P Assessment and plan (1) Preoperative clearance: Patient is moderate risk for cardiovascular event due to history of systolic heart failure ischemic cardiomyopathy COPD and chronic kidney disease. He has incarcerated hernia which requires urgent/emergent surgery as otherwise it could be life-threatening. Patient appeared to be euvolemic does not have any resting or exertional angina. We therefore recommend perioperative beta- saira on board. Since patient will be going for surgery within 1 hour he cannot take anything by mouth therefore 5 mg of Lopressor every 4 IV can be used. Hold if systolic blood pressure is below 110 or heart rate is below 60. Patient can proceed with surgery and anesthesia under acceptable risk . Status: Acute (2) CKD (chronic kidney disease): Patient has baseline chronic kidney disease with some element of prerenal azotemia due to diuretics. Continue to monitor. Post surgery will resume IV Lasix Status: Acute Qualifiers: Chronic kidney disease stage: stage 3 (moderate) Qualified Code(s): N18.3 - Chronic kidney disease, stage 3 (moderate) (3) Systolic heart failure: Currently compensated. 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
--- NOTE | 2020-03-29 20:02 | P.OP_ITS ---
Operative Report Date of procedure: March 29, 2020 Pre-op Diagnosis: 1. Incarcerated right inguinal hernia with resulting bowel obstruction.2. Left inguinal hernia. Post-op Diagnosis: Incarcerated right inguinal hernia with resulting bowel obstruction, incarcerated left inguinal hernia. Procedure Done: Bilateral reduction and repair of bilateral incarcerated inguinal hernias. Specimens removed/disposition: None sent. Pathology: none sent Surgeon: Neto Edmonds Anesthesia: General Estimated blood loss (mL): 25 Complications: None. Condition: stable Disposition: PACU Procedure: The patient was brought to the operating room and was placed in a supine position on the operating room table. General endotracheal anesthesia was induced. A right radial arterial catheter was placed by anesthesia. The scrotum was so distended and the penis was so retracted it appeared that it would be impossible to put a Bustos catheter in preoperatively. The abdomen was prepped and draped in a sterile fashion. A transverse abdominal incision was carried out above the level of the pubic tubercles. Cautery was used to divide the subcutaneous tissue down to the external oblique aponeurosis. Attention was first directed to the right side. The herniated contents could be seen coming through an enlarged external inguinal ring. The external oblique aponeurosis was opened through the ring anteriorly, allowing some of the contents to reduce slightly. Dissecting through the layers of the herniated contents the sac was eventually brought up from the scrotum and was from the scrotal layers. The sac was eventually opened, revealing some very slightly dusky small bowel, but no areas of necrosis. The bowel was irrigated and was eventually returned to the abdomen through the hernia defect, which basically represented the entire obliterated floor of the inguinal canal. The spermatic cord was looped with a Mann[place] drain. Having all of the bowel now reduced through the right side, the sac was stick tied with a suture of 0 Vicryl and the excess was excised. The inguinal canal floor was then reconstructed by using simple sutures of 0 Prolene, used to bring the conjoined area medially to the reflecting edge of Poupart's ligament laterally all the way down to the tubercle. Stitches were placed at the top of the canal as well, basically re-creating/strengthening the new internal inguinal ring where the cord was coming through. I hesitated to use any mesh during this procedure given the fact that the patient had incarcerated bowel within the hernia and obstructive symptoms for at least 3 days. Attention was then directed to the left side where I surprisingly could not reduce this hernia even after repair of the right side. The patient was found to have incarcerated bowel within this hernia, as well. Upon opening the external inguinal ring anteriorly it could all easily be reduced with the hernia sac, however. The spermatic cord was looped with a Mann[place] drain. The sac was left intact while it was reduced and once again, the inguinal canal floor was re-created along its entire length using multiple simple sutures of 0 Prolene used to connect the conjoined area medially to the reflecting edge of Poupart's ligament laterally all the way down to the tubercle. The defect was nearly as large on the left side, although not nearly as much bowel had gone through the defect into the scrotum. Once again, no mesh was used. The entire wound was extensively irrigated with saline. The scrotum was palpated and was obviously significantly decompressed. Both testicles were in the scrotum. Attention was directed towards closure. The subcutaneous tissue at the transverse incision was brought back together in several areas with simple sutures of 3-0 Vicryl. The dermis was reapproximated in several areas using multiple inverted interrupted sutures of 3-0 Vicryl. The skin was finally reapproximated using skin lev. A sterile bandage was placed over the wound. A Bustos catheter was then inserted postoperatively by nursing, as I expect the patient's scrotum is going to swell again postoperatively as it fills with fluid, and we want to keep a close eye on his urine output. The patient was taken to the recovery area in stable condition postoperatively.
--- NOTE | 2020-03-29 20:29 | ANE.PACU2 ---
Inpatient post-anesthesia follow up: Airway intact: Yes Vital signs: Temperature 98.8 F Pulse Rate [Monito r] 88 Pulse Rate 89 Respiratory Rate 22 Blood Pressure [Ri ght Arm] 166/102 Blood Pressure 166/102 Pulse Oximetry 95 Oxygen Delivery Me thod Room Air Oxygen Flow Rate Fraction of Inspir ed Oxygen Hydration adequate: Yes Nausea and vomiting: No Mental status: Baseline
[2020-03-29 21:00] LABS: Glucose Point of Care 219 mg/dL (70-110)
--- NOTE | 2020-03-29 21:00 | ECG_ITS ---
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 Measurements Intervals [place] Rate: 81 P: VA: -1 QRS: -40 QRSD: 144 T: 145 QT: 396 QTc: 462 Interpretive Statements SINUS RYTHM WITH FIRST DEGREE HEART BLOCK MARKED LEFT AXIS DEVIATION [QRS AXIS < -30] LEFT BUNDLE BRANCH BLOCK [120+ ms QRS DURATION, 80+ ms Q/S IN V1/V2, 85+ ms R IN I/aVL/V5/V6] Compared to ECG 03/29/2020 15:36:14 Left-axis deviation now present Left bundle-branch block now present Sinus rhythm no longer present Intraventricular conduction delay no longer present Myocardial infarct finding no longer present Electronically Signed On 03-30-2020 20:24:23 CDT by Stewart Barfield M.D. [id number]
--- NOTE | 2020-03-29 21:04 | SUR.PHASEI ---
2019 Art line removed, catheter in tact, pressure applied to site
--- NOTE | 2020-03-29 21:06 | SUR.PHASEI ---
2034 art line site not bleeding, pressure dressing applied
[2020-03-29] MEDS: heparin 5,000 unit/mL INJ 1 mL 5000 UNIT SUBCUT (22:08)
[2020-03-29] MEDS: famotidine 20 mg/2 mL INJ IVP (22:10)
[2020-03-29] MEDS: metroNIDAZOLE IV 500 MG/100 ML PREMIX 100 MG IV (22:49)
[2020-03-30] VITALS (20 sets, daily range): BP systolic 107–165; BP diastolic 66–91; PULSE 73–85; RESP 15–24; TEMP 36.7–37.4; O2SAT 90–97
--- NOTE | 2020-03-30 | ECG_ITS ---
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 Measurements Intervals [place] Rate: 83 P: -29 PA: 206 QRS: -42 QRSD: 123 T: 139 QT: 366 QTc: 432 Interpretive Statements SINUS RHYTHM INFERIOR MYOCARDIAL INFARCTION [40+ ms Q WAVE AND/OR ST/T ABNORMALITY IN II/aVF], OF INDETERMINATE AGE MODERATE T-WAVE ABNORMALITY, CONSIDER LATERAL ISCHEMIA [-0.1+ mV T WAVE IN I/aVL/V5/V6] Compared to ECG 03/29/2020 23:08:59 Myocardial infarct finding now present T-wave abnormality now present Possible ischemia now present Left-axis deviation no longer present Left bundle-branch block no longer present Electronically Signed On 03-30-2020 20:24:38 CDT by Stewart Barfield M.D. [id number]
[2020-03-30] MEDS: ceFAZolin 1,000 MG in sodium chloride 0.9% (plus) 50 ML 100 MG IV ×3 (02:10→17:06)
[2020-03-30 04:54] LABS: Basophils % 0.4 %; Eosinophils # 0.1 10^3/uL (0.0-0.8); Hematocrit 34.2 % (42.0-52.0); Hemoglobin 10.9 g/dL (11.7-16.6); Lymphocytes # 1.1 10^3/uL (0.8-4.8); Lymphocytes % 9.3 %; Mean Corpuscular HGB Conc 31.9 g/dL (30.0-36.0); Mean Corpuscular Hemoglobin 28.1 pg (28.0-34.0); Mean Corpuscular Volume 88.1 fL (80-94); Mean Platelet Volume 11.7 fL (7.4-10.4); Monocytes # 1.1 10^3/uL (0.2-0.9); Neutrophils # 9.04 10^3/uL (1.8-7.7); Nucleated Red Blood Cells % 0 %; Platelet Count 228 10^3/cmm (130-400); Red Blood Count 3.88 10^6/uL (4.1-5.3); Red Cell Distribution Width 15.9 % (12.1-15.1); White Blood Count 11.4 10^3/uL (4.0-10.0)
[2020-03-30 05:08] LABS: INR 1.13 (0.8-1.2)
[2020-03-30 05:17] LABS: Chol HDL Ratio 4.32 mg/dL (1.0-5.00); Cholesterol 160 mg/dL (0-200); HDL Cholesterol 37 mg/dL (60-100); LDL Cholesterol Calculated 103 mg/dL (50-129); LDL HDL Ratio 2.78 RATIO (0.00-3.22); Triglycerides 100 mg/dL (0-150)
[2020-03-30 05:18] LABS: Alanine Aminotransferase 15 U/L (0-41); Albumin Level 3.4 g/dL (3.5-5.2); Alkaline Phosphatase 172 IU/L (40-130); Anion Gap 14.3 (5-19); Aspartate Amino Transferase 25 U/L (0-40); Blood Urea Nitrogen 34 mg/dL (8-23); Calcium 9.4 mg/dL (8.5-10.5); Carbon Dioxide 26 mmol/L (22-29); Chloride 95 mmol/L (98-107); Globulin 3.9 g/dL (1.3-4.6); Glucose 195 mg/dL (65-115); Osmolality Calculated 275 mOsm/kg (285-295); Phosphorus 5.1 mg/dL (2.5-4.5); Potassium 4.3 mmol/L (3.5-5.1); Sodium 131 mmol/L (136-145); Total Bilirubin 0.8 mg/dL (0.15-1.2); Total Protein 7.3 g/dL (6.6-8.7)
[2020-03-30] MEDS: morphine 4 mg/mL SDV 1 mL IVP ×4 (05:55→18:49)
[2020-03-30] MEDS: metroNIDAZOLE IV 500 MG/100 ML PREMIX 100 MG IV ×3 (06:16→22:28)
--- NOTE | 2020-03-30 06:50 | PM.PN ---
Subjective Subjective: Interval history: The patient says he is really not that sore this morning. He says he is now passing more flatus than he has over the past several days. Vitals/I&O/Wt Last Vital Signs Temp 98.3 F 03/30/20 04:00 Pulse 84 03/30/20 04:00 Resp 18 03/30/20 05:55 BP 165/91 03/30/20 04:00 Pulse Ox 96 03/30/20 05:55 03/29/20 03/29/20 03/30/20 14:59 22:59 06:59 Intake Total 170 / 500 330 / 500 Output Total 325 / 875 550 / 875 Balance -155 / -375 -220 / -375 Weight last 48 hrs Weight 210 lb Physical Exam Narrative: EXAM NARRATIVE: Bowel sounds are hypoactive. The patient has little tenderness on exam. Dressing is intact. Bustos catheter remains in place. Data : 03/30/20 04:30 03/30/20 04:30 Micro: Microbiology 03/29/20 15:58 Blood Culture - Preliminary Blood SPECIMEN COLLECTED 03/29/20 15:28 Blood Culture - Preliminary Blood SPECIMEN COLLECTED A&P Assessment and plan (1) Incarcerated right inguinal hernia: Status post reduction and repair of incarcerated right inguinal hernia with release of bowel obstruction on 03/29/2020. Status: Acute (2) Bowel obstruction: The patient is passing more flatus, but bowel sounds remain hypoactive. Status: Acute (3) Bilateral inguinal hernia: Both of the patient's hernias were found to be incarcerated, but I do not believe the left side was resulting in much of an obstructive process. He is status post bilateral inguinal hernia repair. Status: Acute Attestations Medical Necessity Statement*: Based on my medical assessment, presenting symptoms, medical accuity and consideration of surgical therapy, I expect this patient will require treatment in the hospital for a period spanning at least 2 midnights. Coding Level of Care Code Acute Manager Critical Care for Chaitanya Parsons Diagnoses Incarcerated right inguinal hernia K40.30 Bowel obstruction K56.609 Bilateral inguinal hernia K40.20
[2020-03-30 06:58] LABS: Glucose Point of Care 230 mg/dL (70-110)
--- NOTE | 2020-03-30 07:00 | USCV_ITS ---
Rhett Cotto Age: 79 Gender: M : 1940 Exam Date: 03/30/2020 06:22 Ordering Phys: Nathan Zaman MD Technologist: Shalini Hinds Exam Location: [facility] [place] Indication: SOB POST SURGERY FOR HERNIA BP: 165 / 91 HR: 83 Rhythm: Sinus Technical Quality: Adequate MEASUREMENTS (Male / Female) Normal Values 2D ECHO LV Diastolic Diameter PLAX 6.1 cm 4.2 - 5.9 / 3.9 - 5.3 cm LV Systolic Diameter PLAX 5.3 cm LV Chamber Size 4.9 cm IVS Diastolic Thickness 1.2 cm 0.6 - 1.0 / 0.6 - 0.9 cm IVS Systolic Thickness 1.5 cm LVPW Diastolic Thickness 1.7 cm 0.6 - 1.0 / 0.6 - 0.9 cm LVPW Systolic Thickness 1.3 cm RV Chamber Size 5.7 cm LVOT Diameter 2.0 cm LV Ejection Fraction 2D Teich 28.7 % LV Ejection Fraction MOD 2C 35.1 % LV Ejection Fraction 2C AL 37.3 % LA Diameter 4.0 cm LA Width 4.2 cm LA Height 4.6 cm RA Width 4.5 cm RA Height 5.1 cm Aorta at Sinotubular Diameter 2.8 cm M-MODE LV Diastolic Diameter MM 4.3 cm 4.2 - 5.9 / 3.9 - 5.3 cm LV Systolic Diameter MM 2.9 cm LV Ejection Fraction MM Teich 63.2 % IVS Diastolic Thickness MM 0.8 cm 0.6 - 1.0 / 0.6 - 0.9 cm IVS Systolic Thickness MM 1.4 cm LVPW Diastolic Thickness MM 1.2 cm 0.6 - 1.0 / 0.6 - 0.9 cm LVPW Systolic Thickness MM 1.5 cm RV Diastolic Diameter MM 2.1 cm Aortic Annulus Diameter 3.6 cm LA Ao Ratio MM 1.1 MV E Point Septal Separation 1.0 cm DOPPLER AV Peak Velocity 147.0 cm/s LVOT Peak Velocity 89.0 cm/s AV Area Cont Eq vti 1.8 cm squared AV Area Cont Eq pk 1.9 cm squared MV Area PHT 5.9 cm squared Mitral E to A Ratio 1.0 MV E' Velocity 9.0 cm/s Mitral E to MV E' Ratio 13.8 Mitral E to LV E' Lateral Ratio 13.7 Mitral E to LV E' Septal Ratio 14.2 TR Peak Velocity 309.8 cm/s TR Peak Gradient 38.4 mmHg TR Mean Velocity 222.1 cm/s TR Mean Gradient 22.5 mmHg TR Velocity Time Integral 92.6 cm Right Atrial Pressure 15.0 mmHg Pulmonary Artery Systolic Pressu 53.4 mmHg PV Peak Velocity 67.0 cm/s RV Acceleration Time 0.1 s RV Ejection Time 0.3 s RV AcT/ET 0.5 FINDINGS Left Ventricle LV is mild to moderately dilated. LV systolic function is severely reduced with EF of 25 to 30%. Severe global hypokinesis is noted. Diastolic function is abnormal. Right Ventricle Right ventricle is moderately dilated. Mildly reduced RV function. Right Atrium The right atrium is normal in size. Left Atrium Left atrium is enlarged. Mitral Valve Mitral annular calcification is noted without significant stenosis or prolapse. There is no mitral regurgitation. Aortic Valve Aortic valve is thickened without any hemodynamically significant stenosis. There is no aortic regurgitation. Tricuspid Valve Structurally normal tricuspid valve without significant stenosis or regurgitation. At least moderate tricuspid regurgitation. RVSP is 50 to 55 mmHg. Moderate pulmonary hypertension is present. Elevated RA pressure of 15mmHg. Pulmonic Valve Structurally normal pulmonic valve without significant stenosis. There is no pulmonic regurgitation. Pericardium Normal pericardium without effusion. Aorta Normal ascending aorta dimension. CONCLUSIONS LV systolic function is severely reduced with EF of 25 to 30%. Severe global hypokinesis need noted. Diastolic function is abnormal. Elevated RA pressure. Moderate pulmonary hypertension. At least moderate tricuspid regurgitation. Compared to prior study from 2013, there is no significant change in the echocardiogram. Lenin Shaffer MD (Electronically Signed) Final Date: 30 March 2020 12:22 S
--- NOTE | 2020-03-30 07:19 | ANE.PACU2 ---
Inpatient post-anesthesia follow up: Airway intact: Yes Vital signs: Temperature 98.3 F Pulse Rate [Monito r] 88 Pulse Rate 84 Respiratory Rate 18 Blood Pressure [Ri ght Arm] 166/102 Blood Pressure 165/91 Pulse Oximetry 96 Oxygen Delivery Me thod Nasal Cannula Oxygen Flow Rate 2 Fraction of Inspir ed Oxygen Hydration adequate: Yes Nausea and vomiting: No Pain level: 3 Mental status: Baseline
--- NOTE | 2020-03-30 07:22 | XR_ITS ---
WS: [id number] Portable AP upright chest, 03/30/2020 Clinical Data: sob Comparison: Portable chest, 03/29/2020. Findings: No nodules, masses or effusions are seen. The heart is enlarged. The pulmonary vascularity is not increased. No pneumonia or pneumothorax is seen. The aortic arch and descending aorta show han cification and tortuosity. Monitor leads are on the chest wall. XR/XR chest 1V portable 10251 Impression: Cardiomegaly and atherosclerosis.
[2020-03-30] MEDS: FUROsemide 10 mg/mL SDV 4mL 40 MG IVP ×2 (07:35→18:50)
--- NOTE | 2020-03-30 08:18 | PC.NURSE ---
Dr. Zaman in room for assessment and discussion of POC
[2020-03-30] MEDS: levalbuterol 0.63 mg/3 mL Neb INHALATION ×2 (08:29→13:00)
[2020-03-30] MEDS: famotidine 20 mg/2 mL INJ IVP ×2 (08:43→20:33)
[2020-03-30] MEDS: aspirin 81 mg EC Tablet PO (08:43)
[2020-03-30] MEDS: atorvastatin 40 mg Tablet PO (08:43)
[2020-03-30] MEDS: potassium chloride ER 10 mEq Tablet 20 MEQ PO ×2 (08:43→17:06)
[2020-03-30] MEDS: bisacodyl 5 mg Tablet PO (08:43)
[2020-03-30] MEDS: heparin 5,000 unit/mL INJ 1 mL 5000 UNIT SUBCUT ×2 (08:44→20:33)
--- NOTE | 2020-03-30 08:58 | PC.NURSE ---
patient given morphine for pain rated 8/10 in abdomen prior to getting up with PT
[2020-03-30 10:42] LABS: Glucose Point of Care 238 mg/dL (70-110)
[2020-03-30] MEDS: carvedilol 3.125 mg Tablet PO ×2 (12:08→17:06)
--- NOTE | 2020-03-30 12:12 | PM.PN ---
Subjective Subjective: Interval history: This morning patient was examined, he is postop from his hernia repair, states that he is doing well, no shortness of breath, no chest pain, has persistent bilateral lower extreme edema but much improved, no fevers, no chills, currently on a clear liquid diet, Vitals/I&O/Wt Last Vital Signs Temp 98.0 F 03/30/20 11:53 Pulse 80 03/30/20 11:53 Resp 23 H 03/30/20 11:53 BP 118/70 03/30/20 11:53 Pulse Ox 92 03/30/20 11:53 03/29/20 03/30/20 03/30/20 22:59 06:59 14:59 Intake Total 170 / 170 330 / 500 390 / 390 Output Total 325 / 325 550 / 875 Balance -155 / -155 -220 / -375 390 / 390 Weight last 48 hrs Weight 95.254 kg Physical Exam Const: COMMON NORMALS: no acute distress and patient oriented x3 HENMT: COMMON NORMALS: normocephalic HEAD & SCALP: normocephalic Neck/C-Spine: COMMON NORMALS: no JVD Resp: COMMON NORMALS: normal respiratory effort, No retractions, No use of accessory muscles and clear to auscultation bilaterally AUSCULTATION: clear to auscultation bilaterally Cardio: COMMON NORMALS: no JVD, regular rate, regular rhythm, S1 normal heart sound present and S2 normal heart sound present RATE: regular rate RHYTHM: regular rhythm HEART SOUNDS: S1 normal heart sound present and S2 normal heart sound present GI: COMMON NORMALS: Normal to inspection, nondistended, normoactive bowel sounds present and Soft to palpation AUSCULTATION: Yes normoactive bowel sounds PALPATION: Yes Soft to palpation, No Tenderness to palpation present (GI), No Guarding due to palpation present (GI) and No Rigid due to palpation OTHER: Surgical site lower abdomen looks clean and dry, packing on top Extremity: COMMON NORMALS: capillary refill normal NARRATIVE EXTREMITY EXAM: 2+ pitting edema Neuro: COMMON NORMALS: patient oriented x3 Psych: COMMON NORMALS: mental status grossly normal Urinary Catheter Management^: Bustos: Cath Placed During This Visit: no Reason for Continuing Indwelling Catheter: Acute Urinary Retention or Obstruction Data : 03/30/20 04:30 03/30/20 04:30 Micro: Microbiology 03/29/20 15:58 Blood Culture - Preliminary Blood SPECIMEN COLLECTED 03/29/20 15:28 Blood Culture - Preliminary Blood SPECIMEN COLLECTED A&P Assessment and plan (1) Incarcerated right inguinal hernia: -CT scan shows;1.) Large right inguinal hernia. Hernia sac contains loops of distal small bowel and associated mesentery as well as cecum and portion of appendix. Hernia resulting in at least a partial small bowel obstruction with fluid dilated loops of overlying intraperitoneal mid small bowel and transition zone at level of hernia neck. Hernia sac contains a moderate amount of ascites suggesting incarceration or less likely strangulation. 2.) Several cm uncomplicated left inguinal hernia containing portion of left colon. 3.) Additional chronic findings as described above. - Plan: -Status post bilateral reduction and repair of bilateral incarcerated inguinal hernias by Dr. Edmonds, postop day 1 -Dr. Edmonds has been consulted for surgery -Currently on a clear liquid diet -Heparin for DVT prophylaxis -Protonix for GI prophylaxis Status: Acute (2) Type 2 diabetes mellitus: -Hemoglobin A1c 8.9 -Currently on an insulin sliding scale -Levemir 10 units nightly Status: Acute (3) Hyperlipidemia: -Check lipid panel Status: Acute Qualifiers: Hyperlipidemia type: other hyperlipidemia Qualified Code(s): E78.49 - Other hyperlipidemia (4) Systolic heart failure: -Has a history of CHF, systolic, no history of echocardiogram recently, but did have a cardiac catheterization in December 2013 with a EF of 30%, currently BNP is 6647 -Has a history of CAD, cardiac cath on December 2013, LAD normal, left circumflex normal, RCA chronic occlusion ostial, ramus normal, left MCA single stenosis 60%, currently medically managed -Has not follow-up with cardiology in some time -Patient's EKG shows Q waves in the inferior leads, Q waves in the anterior chest leads -Today chest x-ray shows some pulmonary vascular congestion, minimal crackles heard on exam, 2+ pitting edema, +15 mL since admission, creatinine is 1.9 Plan: -Continue Lasix 40 mg IV twice daily -Continue aspirin, statin -Continue Coreg 3.125 twice daily -Follow echocardiogram results -Encourage ambulation, daily weights, -Currently on 2 L nasal cannula, try to wean Status: Acute Qualifiers: Heart failure chronicity: chronic Qualified Code(s): I50.22 - Chronic systolic (congestive) heart failure (5) ASHD (arteriosclerotic heart disease): Status: Acute (6) HTN (hypertension): Status: Acute (7) CKD (chronic kidney disease): -Baseline creatinine is roughly 1.4, currently at baseline Status: Acute Qualifiers: Chronic kidney disease stage: stage 3 (moderate) Qualified Code(s): N18.3 - Chronic kidney disease, stage 3 (moderate) Attestations Medical Necessity Statement*: Patient requires hospitalization status post incarcerated inguinal hernia, systolic heart failure, fluid overload Coding Level of Care Code Acute Rock Climbing Team Member for [facility] Fwd Diagnoses Incarcerated right inguinal hernia K40.30 Type 2 diabetes mellitus E11.9 Hyperlipidemia E78.49 Hyperlipidemia type: other hyperlipidemia Systolic heart failure I50.22 Heart failure chronicity: chronic ASHD (arteriosclerotic heart disease) I25.10 HTN (hypertension) I10 CKD (chronic kidney disease) N18.3 Chronic kidney disease stage: stage 3 (moderate)
[2020-03-30 17:03] LABS: Glucose Point of Care 194 mg/dL (70-110)
[2020-03-30] MEDS: HYDROcodone-acetaminophen 5-325 mg Tablet PO (19:43)
--- NOTE | 2020-03-30 20:02 | P.PN_ITS ---
Subjective Subjective: Interval history: Patient underwent hernia repair last night. It remained uneventful. Today sitting in the chair denies any complaint. He denies shortness of breath. Vitals/I&O/Wt Last Vital Signs Temp 99.3 F 03/30/20 15:07 Pulse 79 03/30/20 15:07 Resp 23 H 03/30/20 18:49 BP 112/69 03/30/20 15:07 Pulse Ox 94 03/30/20 18:49 03/30/20 03/30/20 03/30/20 06:59 14:59 22:59 Intake Total 330 / 500 630 / 630 340 / 970 Output Total 550 / 875 Balance -220 / -375 630 / 630 340 / 970 Weight last 48 hrs Weight 210 lb Physical Exam Narrative: EXAM NARRATIVE: GENERAL: Patient is alert, awake and oriented x3. He is not in any distress NECK: No jugular vein distension. HEENT: No cyanosis. No icterus. No pallor. HEART: Regular S1 and S2. No murmur, rub or gallop. LUNGS: Clear to auscultate bilaterally. ABDOMEN: Soft, nontender and nondistended. Positive bowel sounds. No guarding, rebound or tenderness. CENTRAL NERVOUS SYSTEM: Grossly nonfocal. EXTREMITIES: Lower extremities with 1+ edema bilaterally. Urinary Catheter Management^: Bustos: Cath Placed During This Visit: no Reason for Continuing Indwelling Catheter: Acute Urinary Retention or Obstruction Data : 03/30/20 04:30 03/30/20 04:30 Micro: Microbiology 03/29/20 15:58 Blood Culture - Preliminary Blood NEGATIVE TO DATE 03/29/20 15:28 Blood Culture - Preliminary Blood NEGATIVE TO DATE A&P Assessment and plan (1) Systolic heart failure: Remain compensated. Creatinine has worsened. We will continue to monitor. Patient already got IV Lasix this morning. I will hold it tonight. I will add Coreg to the regimen. I will hold spironolactone due to worsening of creatinine Status: Acute Qualifiers: Heart failure chronicity: chronic Qualified Code(s): I50.22 - Chronic systolic (congestive) heart failure (2) CKD (chronic kidney disease): I will hold Aldactone and watch renal function Status: Acute Qualifiers: Chronic kidney disease stage: stage 3 (moderate) Qualified Code(s): N1 8.3 - Chronic kidney disease, stage 3 (moderate) (3) ASHD (arteriosclerotic heart disease): Stable doing fine from a coronary disease perspective. Continue to monitor. Status: Acute (4) Incarcerated right inguinal hernia: Status post right hernia repair Status: Acute Attestations Medical Necessity Statement*: Require continuation hospitalization for above defined care. Coding Level of Care Code Established Pt Acute Detail Manager for Chaitanya Fwcatherine Patient Type Established History Expanded Problem Focused Exam Expanded Problem Focused Medical Decision Making Moderate Complexity Diagnoses Systolic heart failure I50.22 Heart failure chronicity: chronic CKD (chronic kidney disease) N18.3 Chronic kidney disease stage: stage 3 (moderate) ASHD (arteriosclerotic heart disease) I25.10 Incarcerated right inguinal hernia K40.30
[2020-03-30 20:20] LABS: Glucose Point of Care 139 mg/dL (70-110)
[2020-03-30 20:41] LABS: Glucose Point of Care 151 mg/dL (70-110)
--- NOTE | 2020-03-30 21:56 | PC.NURSE ---
Patient c/o pain at 1845 to abdomen at 03/30. Morphine was given as ordered for severe pain at 185. Patient expressed little relief.
--- NOTE | 2020-03-30 21:57 | PC.NURSE ---
At 1940, patient continued to c/o pain to abdomen and lower back at 9/10. Repositioned patient for comfort multiple times. Administered hydrocodone 5/325mg as ordered for severe pain. Continued to reposition for comfort. Pillows placed. Patient able to self adjust some.
--- NOTE | 2020-03-30 22:00 | PC.NURSE ---
At 2029, administered patient evening medication. Patient resting comfortable at this time stating my pain is finally under control 10/28. No other distress observed. Will continue to monitor.
--- NOTE | 2020-03-30 22:31 | PC.NURSE ---
Patient resting with eyes closed. No distress observed. Medication administered as ordered for this time.
[2020-03-31] VITALS (13 sets, daily range): BP systolic 100–115; BP diastolic 67–82; PULSE 68–72; RESP 14–24; TEMP 35.6–37; O2SAT 91–96
--- NOTE | 2020-03-31 04:07 | PC.NURSE ---
Addendum entered by Kait Loving RN 03/31/20 04:57: Received order from Dr Cali to hold next dose of Lasix. Original Note: Emptied patient meng catheter. Patient had 250ml of light faviola colored urine removed. Assessed line for continued drainage which is present. Checked line for kinks or obstructions, none seen at this time. Informed Dr Cali via [employer] system. Waiting for response.
--- NOTE | 2020-03-31 04:45 | PC.NURSE ---
Patient has elevated BP this morning of 184/59. Patient denies any symptoms this morning. Informed Dr Cali and received order to give am BP medications early.
[2020-03-31] MEDS: sodium chloride 0.9% 250 ML IV (05:21)
[2020-03-31 05:48] LABS: Basophils # 0.1 10^3/uL (0.0-0.1); Basophils % 0.6 %; Eosinophils # 0.2 10^3/uL (0.0-0.8); Eosinophils % 1.7 %; Hematocrit 32.8 % (42.0-52.0); Hemoglobin 10.3 g/dL (11.7-16.6); Lymphocytes # 1.8 10^3/uL (0.8-4.8); Lymphocytes % 17.1 %; Mean Corpuscular HGB Conc 31.4 g/dL (30.0-36.0); Mean Corpuscular Hemoglobin 27.9 pg (28.0-34.0); Mean Corpuscular Volume 88.9 fL (80-94); Mean Platelet Volume 11.7 fL (7.4-10.4); Monocytes # 1.1 10^3/uL (0.2-0.9); Neutrophils # 7.49 10^3/uL (1.8-7.7); Neutrophils % 70.2 %; Nucleated Red Blood Cells % 0 %; Platelet Count 206 10^3/cmm (130-400); Red Blood Count 3.69 10^6/uL (4.1-5.3); Red Cell Distribution Width 15.9 % (12.1-15.1); White Blood Count 10.7 10^3/uL (4.0-10.0)
[2020-03-31 06:04] LABS: INR 1.24 (0.8-1.2)
[2020-03-31 06:10] LABS: Alanine Aminotransferase 7 U/L (0-41); Albumin Level 3.4 g/dL (3.5-5.2); Alkaline Phosphatase 139 IU/L (40-130); Anion Gap 16.7 (5-19); Aspartate Amino Transferase 19 U/L (0-40); Blood Urea Nitrogen 49 mg/dL (8-23); Calcium 9.3 mg/dL (8.5-10.5); Carbon Dioxide 24 mmol/L (22-29); Chloride 93 mmol/L (98-107); Glucose 110 mg/dL (65-115); Magnesium 2.1 mg/dL (1.7-2.3); Osmolality Calculated 265 mOsm/kg (285-295); Phosphorus 5.6 mg/dL (2.5-4.5); Potassium 5.7 mmol/L (3.5-5.1); Sodium 128 mmol/L (136-145); Total Bilirubin 0.8 mg/dL (0.15-1.2); Total Protein 7.4 g/dL (6.6-8.7)
[2020-03-31] MEDS: metroNIDAZOLE IV 500 MG/100 ML PREMIX 100 MG IV (06:20)
[2020-03-31 06:33] LABS: Glucose Point of Care 134 mg/dL (70-110)
--- NOTE | 2020-03-31 07:24 | PC.NURSE ---
pt resting in bed upon entering room. assessment performed. dressing was clean, dry, and intact. infusion complete, iv flushed with saline flush. pt stated he was not in any pain right now. call light within reach. will continue to monitor.
[2020-03-31] MEDS: levalbuterol 0.63 mg/3 mL Neb INHALATION ×3 (07:36→15:36)
--- NOTE | 2020-03-31 07:38 | US_ITS ---
WS: [id number] ULTRASOUND RENAL TECHNIQUE: Ultrasound examination of both kidneys. CLINICAL INFORMATION: esequiel COMPARISON: None. FINDINGS: Right renal cysts largest upper pole right kidney measuring 7.1 x 6.4 CCM. Smaller right mi d pole renal cyst measuring 2.9 CCM. RIGHT: Right kidney is normal in size and appearance. Echogenicity: Normal. Hydronephrosis: None. Perinephric fluid: None. Right kidney measures: 11.2 cm x 6.1 cm x 5.7 cm. LEFT: Left kidney is normal in size and appearance. Echogenicity: Normal. Hydronephrosis: None. Perinephric fluid: None. Left kidney measures: 10.6 cm x 4.8 cm x 4.6 cm. Normal visualized aorta. Enlarged calcified prostate. Prostate measures 5.2 cm maximum dimension. Rec ommend correlation for bladder outlet obstruction. US/US renal BI* [id number] IMPRESSION: 1. No hydronephrosis in either kidney. 2. Large right renal cyst measuring 7.1 x 6.4 CCM. 3. Enlarged prostate measuring 5.2 cm in maximum dimension. Recommend correlat ion for bladder outlet obstruction.
--- NOTE | 2020-03-31 08:00 | PC.NURSE ---
0800 dr coreas at bedside assessing pt. verbal order to bladder scan now. 0810 dr use ultrasound to scan. couldnt see bladder due to dressing from surgery in place. wanted to be notified when dr garrido did rounds. 0830 dr garrido at bed side. removed dressing, open to air. 0832 dr coreas notifed and came back to bedside. used ultrasound to look at bladder again. verbal order to flush meng. at this time supply technician came to do a renal ultrasound, watched as meng was flushed. bladder and fluid seen on ultrasound. dr coreas okay with the results.
[2020-03-31] MEDS: heparin 5,000 unit/mL INJ 1 mL 5000 UNIT SUBCUT ×2 (08:41→20:38)
[2020-03-31] MEDS: famotidine 20 mg/2 mL INJ IVP ×2 (08:41→20:38)
[2020-03-31] MEDS: atorvastatin 40 mg Tablet PO (08:42)
[2020-03-31] MEDS: potassium chloride ER 10 mEq Tablet 20 MEQ PO (08:42)
[2020-03-31] MEDS: aspirin 81 mg EC Tablet PO (08:42)
[2020-03-31] MEDS: HYDROcodone-acetaminophen 5-325 mg Tablet PO (08:42)
[2020-03-31] MEDS: carvedilol 3.125 mg Tablet PO ×2 (08:42→17:30)
--- NOTE | 2020-03-31 08:50 | P.PN_ITS ---
Subjective Subjective: Interval history: The patient has no complaints this morning other than wanting to drink some more water. He does mention that his incision hurts when he coughs; otherwise he denies any pain. He is on a clear liquid diet. He is not receiving any additional IV fluid right now due to his low ejection fraction/CHF history. Vitals/I&O/Wt Last Vital Signs Temp 96.1 F L 03/31/20 08:00 Pulse 71 03/31/20 08:00 Resp 19 H 03/31/20 08:00 BP 112/67 03/31/20 08:00 Pulse Ox 96 03/31/20 08:00 03/30/20 03/31/20 03/31/20 22:59 06:59 14:59 Intake Total 580 / 1680 470 / 1680 100 / 100 Output Total 250 / 250 Balance 580 / 1430 220 / 1430 100 / 100 Weight last 48 hrs Weight 220 lb 11.2 oz Weight 210 lb Physical Exam Narrative: EXAM NARRATIVE: The abdomen reveals hypoactive bowel sounds. The dressing was removed and the incision looks okay. Urinary Catheter Management^: Bustos: Cath Placed During This Visit: no Reason for Continuing Indwelling Catheter: Acute Urinary Retention or Obstruction Data : 03/31/20 05:15 03/31/20 05:15 Micro: Microbiology 03/29/20 15:58 Blood Culture - Preliminary Blood NEGATIVE TO DATE 03/29/20 15:28 Blood Culture - Preliminary Blood NEGATIVE TO DATE A&P Assessment and plan (1) Incarcerated right inguinal hernia: Status post reduction and repair of large incarcerated right inguinal hernia that was resulting in a bowel obstruction on 03/29/2020. Still awaiting good return of bowel function. Status: Acute (2) Incarcerated left inguinal hernia: Status post reduction and repair on 03/29/2020. Status: Acute (3) CKD (chronic kidney disease): The patient's kidney function has worsened. His his diuretics are on hold. Discussed with Dr. Zaman --he will handle the hydration status given the patient's low cardiac EF. Leave Bustos catheter in for now for accurate urine output measurement. Status: Acute Qualifiers: Chronic kidney disease stage: stage 3 (moderate) Qualified Code(s): N18.3 - Chronic kidney disease, stage 3 (moderate) Attestations Medical Necessity Statement*: Patient requires inpatient care for postoperative management while awaiting return of bowel function and watching kidney insufficiency closely. Coding Level of Care Code Acute Magazine Filler for Chg Fwd Diagnoses Incarcerated right inguinal hernia K40.30 Incarcerated left inguinal hernia K40.30 CKD (chronic kidney disease) N18.3 Chronic kidney disease stage: stage 3 (moderate)
--- NOTE | 2020-03-31 08:59 | US_ITS ---
WS: [id number] ULTRASOUND ABDOMEN LIMITED CLINICAL INFORMATION: lower pelvis, free fluid COMPARISON: None. FINDINGS: Four-quadrant abdominal survey. No free fluid in the abdomen or pelvis US/US abdomen limited [id number] IMPRESSION: No significant free fluid.
[2020-03-31] MEDS: sodium chloride 0.9% 1,000 ML 75 ML IV ×2 (10:15→15:34)
[2020-03-31 11:29] LABS: Glucose Point of Care 135 mg/dL (70-110)
--- NOTE | 2020-03-31 11:32 | PC.CHAP ---
Pastoral Care Encounter/Spiritual Assessment Type of Contact [] Declined hydraulic modeling engineer visit [] Patient/Family/Request visit [] Outpatient visit [] Follow-up visit [] Physician referral [] Code/Alert [xx] Routine visit [] Staff referral [] Actively dying [] Patient sleeping [] Family support [] [] Out of room [] Palliative care [] [] Receiving care in room [] Pre-surgical visit [] Trauma [] Long length of stay [] ICU visit [] Other: Relational/Emotional Strength [xx] Patient feels connected with others/family/visitors/staff [] Distress [] Loneliness/isolation [] Abandonment Spirituality of Patient [] Person of Shelli [] Attends Roman Catholic of their Shelli [xx] Believes in Prayer [] Reads Bible or Uatsdin materials [] There are Spiritual issues to be addressed Career Development Consultant Interventions [xx] Prayer [xx] Active listening [xx] Non-anxious presence [] Spiritual/emotional support [] Crisis/trauma care [] Spiritual counseling [] Bereavement support [] Provided bereavement packet [] Provided Bible/devotional materials [] Provided toy/stuffed animal, coloring book to patient or family member [] Provided Communion [] Anointing/[place] [] Salvation [xx] Completed spiritual assessment [] Other: Impact on Illness or Injury [] Angry [] Fearful [] Anxious [] Often cries [] Exhaustion [] Unable to work [] Unable to attend lutheran [] Unable to walk/stand [] Unable to read [] Unable to drive [] Unable to eat/drink [] Unable to sleep [] Unable to be with family [] Patient intubated [] Other: Summary Pt is older gentleman with age-related limitations in mobility and mental functions. He wanted prayer but not conversation. Time spent with patient 5 minutes Career Development Consultant Cleopatra Lee
--- NOTE | 2020-03-31 11:36 | PM.PN ---
Subjective Subjective: Interval history: Appear to be laying flat denies any problem Medications: Reviewed: Yes Vitals/I&O/Wt Last Vital Signs Temp 96.1 F L 03/31/20 08:00 Pulse 71 03/31/20 08:00 Resp 19 H 03/31/20 08:00 BP 112/67 03/31/20 08:00 Pulse Ox 96 03/31/20 08:00 03/30/20 03/31/20 03/31/20 22:59 06:59 14:59 Intake Total 580 / 1210 470 / 1680 820 / 820 Output Total 250 / 250 Balance 580 / 1210 220 / 1430 820 / 820 Weight last 48 hrs Weight 220 lb 11.2 oz Weight 210 lb Physical Exam Narrative: EXAM NARRATIVE: GENERAL: Patient is alert, awake and oriented x3. NECK: No jugular vein distension. HEENT: No cyanosis. No icterus. No pallor. HEART: Regular S1 and S2. No murmur, rub or gallop. LUNGS: Decreased bilaterally. ABDOMEN: Soft, nontender and nondistended. Positive bowel sounds. No guarding, rebound or tenderness. CENTRAL NERVOUS SYSTEM: Grossly nonfocal. EXTREMITIES: Lower extremities without edema bilaterally. Urinary Catheter Management^: Bustos: Cath Placed During This Visit: no Reason for Continuing Indwelling Catheter: Acute Urinary Retention or Obstruction Data : 04/01/20 05:48 04/01/20 12:08 Micro: Microbiology 03/29/20 15:58 Blood Culture - Preliminary Blood NEGATIVE TO DATE 03/29/20 15:28 Blood Culture - Preliminary Blood NEGATIVE TO DATE A&P Assessment and plan (1) Systolic heart failure: Appear to be compensated at this point continue to optimize medicine. Creatinine is worsening we will see how it does if it continues to worsen I may will opt for diuresis Status: Acute Qualifiers: Heart failure chronicity: chronic Qualified Code(s): I50.22 - Chronic systolic (congestive) heart failure (2) CKD (chronic kidney disease): Most likely prerenal. Continue to monitor Status: Acute Qualifiers: Chronic kidney disease stage: stage 3 (moderate) Qualified Code(s): N18.3 - Chronic kidney disease, stage 3 (moderate) (3) ASHD (arteriosclerotic heart disease): Appear to be stable. Continue to optimize medicine as per vitals Status: Acute (4) Incarcerated right inguinal hernia: As per surgery Status: Acute Attestations Medical Necessity Statement*: Require continuation hospitalization for above defined care. Coding Level of Care Code Established Pt Acute Outpatient Coding Specialist for Chaitanya Parsons Patient Type Established History Expanded Problem Focused Exam Expanded Problem Focused Medical Decision Making Moderate Complexity Diagnoses Systolic heart failure I50.22 Heart failure chronicity: chronic CKD (chronic kidney disease) N18.3 Chronic kidney disease stage: stage 3 (moderate) ASHD (arteriosclerotic heart disease) I25.10 Incarcerated right inguinal hernia K40.30
[2020-03-31] MEDS: morphine 4 mg/mL SDV 1 mL IVP ×2 (12:50→17:56)
[2020-03-31 13:39] LABS: Potassium, Radom Urine 61 mmol/L; Urine Creatinine 105 mg/dL (39-259); Urine Random Chloride 21 mmol/L; Urine Random Sodium 25 mmol/L
[2020-03-31 13:40] LABS: Alanine Aminotransferase < 5 U/L (0-41); Albumin Level 3.2 g/dL (3.5-5.2); Alkaline Phosphatase 134 IU/L (40-130); Anion Gap 19.7 (5-19); Aspartate Amino Transferase 18 U/L (0-40); Blood Urea Nitrogen 53 mg/dL (8-23); Carbon Dioxide 20 mmol/L (22-29); Chloride 91 mmol/L (98-107); Globulin 3.8 g/dL (1.3-4.6); Glucose 140 mg/dL (65-115); Osmolality Calculated 261 mOsm/kg (285-295); Potassium 5.7 mmol/L (3.5-5.1); Sodium 125 mmol/L (136-145); Total Bilirubin 0.7 mg/dL (0.15-1.2)
[2020-03-31 13:50] LABS: Urea Nitrogen,Urine Random 100 mg/dL
--- NOTE | 2020-03-31 14:27 | PM.PN ---
Subjective Subjective: Interval history: This morning patient was examined, overnight his urine output dropped, was given a 250 cc bolus, his only complaint is pain over surgical site, no nausea, no vomiting, no chest pain, no shortness of breath, no lightheadedness, no dizziness, no fevers, no chills Vitals/I&O/Wt Last Vital Signs Temp 98.4 F 03/31/20 12:00 Pulse 68 03/31/20 12:05 Resp 14 03/31/20 12:50 BP 100/77 03/31/20 12:00 Pulse Ox 92 03/31/20 12:50 03/30/20 03/31/20 03/31/20 22:59 06:59 14:59 Intake Total 580 / 1210 470 / 1680 1060 / 1060 Output Total 250 / 250 230 / 230 Balance 580 / 1210 220 / 1430 830 / 830 Weight last 48 hrs Weight 100.108 kg Weight 95.254 kg Physical Exam Const: COMMON NORMALS: no acute distress and patient oriented x3 HENMT: COMMON NORMALS: normocephalic HEAD & SCALP: normocephalic Neck/C-Spine: COMMON NORMALS: no JVD Resp: COMMON NORMALS: normal respiratory effort, No retractions, No use of accessory muscles and clear to auscultation bilaterally AUSCULTATION: clear to auscultation bilaterally Cardio: COMMON NORMALS: no JVD, regular rate, regular rhythm, S1 normal heart sound present and S2 normal heart sound present RATE: regular rate RHYTHM: regular rhythm HEART SOUNDS: S1 normal heart sound present and S2 normal heart sound present GI: COMMON NORMALS: Normal to inspection, nondistended, normoactive bowel sounds present and non-tender OTHER: Surgical lev look clean and dry : OTHER: Right testicle slightly dilated, head of the penis is not visible Extremity: COMMON NORMALS: capillary refill normal, no clubbing, cyanosis or edema, no calf tenderness and no pedal edema Neuro: COMMON NORMALS: patient oriented x3 Psych: COMMON NORMALS: mental status grossly normal Urinary Catheter Management^: Bustos: Cath Placed During This Visit: no Reason for Continuing Indwelling Catheter: Acute Urinary Retention or Obstruction Data : 03/31/20 05:15 03/31/20 13:00 Micro: Microbiology 03/29/20 15:58 Blood Culture - Preliminary Blood NEGATIVE TO DATE 03/29/20 15:28 Blood Culture - Preliminary Blood NEGATIVE TO DATE A&P Assessment and plan (1) Acute renal failure superimposed on chronic kidney disease: -Patient's creatinine has increased to 4.1, serum sodium 125, potassium 5.7 -Fractional excretion of urea is 7.4, prerenal -Fractional excretion of sodium 0.%, Prerenal -Renal ultrasound does not show any hydronephrosis, large left renal cyst, does show enlarged prostate, ultrasound of the pelvis does not show any free fluid -Bedside ultrasound showed that the bladder was collapsed, Bustos catheter was seen inside bladder -With the nurses we checked patient's Bustos catheter, its flushes well, free-flowing, 60 cc of normal saline was injected into Bustos catheter, on ultrasound bladder dilated, no visible leak -So far patient has had 203 cc urine output -Likely acute renal failure from dehydration, Lasix therapy, some degree from cardiorenal syndrome Plan: -Hold all nephrotoxic agents -Monitor ins and outs closely -Gentle IV hydration normal saline at 75 cc an hour -Monitor serum sodium, potassium -I have consulted nephrology Status: Acute (2) Incarcerated right inguinal hernia: -CT scan shows;1.) Large right inguinal hernia. Hernia sac contains loops of distal small bowel and associated mesentery as well as cecum and portion of appendix. Hernia resulting in at least a partial small bowel obstruction with fluid dilated loops of overlying intraperitoneal mid small bowel and transition zone at level of hernia neck. Hernia sac contains a moderate amount of ascites suggesting incarceration or less likely strangulation. 2.) Several cm uncomplicated left inguinal hernia containing portion of left colon. 3.) Additional chronic findings as described above. Plan: -Status post bilateral reduction and repair of bilateral incarcerated inguinal hernias by Dr. Edmonds, postop day 2 -Dr. Edmonds has been consulted for surgery -Currently on a clear liquid diet -Heparin for DVT prophylaxis -Protonix for GI prophylaxis Status: Acute (3) Type 2 diabetes mellitus: -Hemoglobin A1c 8.9 -Currently on an insulin sliding scale -Levemir 10 units nightly Status: Acute (4) Hyperlipidemia: -Check lipid panel Status: Acute Qualifiers: Hyperlipidemia type: other hyperlipidemia Qualified Code(s): E78.49 - Other hyperlipidemia (5) Systolic heart failure: -Has a history of CHF, systolic, no history of echocardiogram recently, but did have a cardiac catheterization in December 2013 with a EF of 30%, currently BNP is 6647 -Has a history of CAD, cardiac cath on December 2013, LAD normal, left circumflex normal, RCA chronic occlusion ostial, ramus normal, left MCA single stenosis 60%, currently medically managed -Has not follow-up with cardiology in some time -Patient's EKG shows Q waves in the inferior leads, Q waves in the anterior chest leads -Echocardiogram on this admission shows: LV systolic function is severely reduced with EF of 25 to 30%. Severe global hypokinesis need noted. Diastolic function is abnormal. Elevated RA pressure. Moderate pulmonary hypertension. At least moderate tricuspid regurgitation. Plan: -Stop Lasix therapy -Continue aspirin, statin -Continue Coreg 3.125 twice daily -Encourage ambulation, daily weights, -Currently on 2 L nasal cannula, try to wean Status: Acute Qualifiers: Heart failure chronicity: chronic Qualified Code(s): I50.22 - Chronic systolic (congestive) heart failure (6) ASHD (arteriosclerotic heart disease): Status: Acute (7) HTN (hypertension): Status: Acute (8) CKD (chronic kidney disease): -Baseline creatinine is roughly 1.4, currently at baseline Status: Acute Qualifiers: Chronic kidney disease stage: stage 3 (moderate) Qualified Code(s): N18.3 - Chronic kidney disease, stage 3 (moderate) Attestations Medical Necessity Statement*: Patient requires hospitalization due to incarcerated right inguinal hernia, severe systolic heart failure, acute renal failure Coding Level of Care Code Acute Remote Mortgage Underwriter for [facility] Fwd Diagnoses Acute renal failure superimposed on chronic kidney disease N17.9; N18.9 Incarcerated right inguinal hernia K40.30 Type 2 diabetes mellitus E11.9 Hyperlipidemia E78.49 Hyperlipidemia type: other hyperlipidemia Systolic heart failure I50.22 Heart failure chronicity: chronic ASHD (arteriosclerotic heart disease) I25.10 HTN (hypertension) I10 CKD (chronic kidney disease) N18.3 Chronic kidney disease stage: stage 3 (moderate)
[2020-03-31 14:34] LABS: Eosinophil Urine No Eosinophils Seen; Urine Eosinophil Count 0 (0-0)
--- NOTE | 2020-03-31 16:19 | P.CONIM_ITS ---
Providers/Reason For Consult Consulting Physican/Specialty*: Lexy Ozuna DO, telenephrology Reason for Consult*: Acute kidney injury Attending Physician: Neto Edmonds MD Primary Care Provider: Jose Manuel Mooney MD History of Present Illness History of Present Illness Rhett Cotto is a 79 year old male admitted with incarcerated hernia. Went to OR 03/29/2020, bilateral incarcerated inguinal hernia repair. Has baseline CKD with serum Cr 1.4 mg/dL on admission, has risen each day. He received potassium today, has not received spironolactone Review of Systems Narrative: states he feels fine Card: Denies: chest pain Resp: Denies: dyspnea GI: Reports: other (+ flatus, no BM since surgery) : Reports: other (meng) Meds/Allergies Home Medications and Allergies Home Medications Medication Instructions Recorded Confirmed Last Taken Type aspirin 81 mg tablet,delayed 81 mg PO DAILY 11/22/19 03/29/20 03/28/20 History release furosemide 40 mg tablet 60 mg PO BID tab 11/23/19 03/29/20 03/28/20 History metformin 500 mg tablet 500 mg PO BID 11/23/19 03/29/20 03/28/20 History potassium chloride 10 mEq 20 meq PO BID tab 11/23/19 03/29/20 03/28/20 History tablet,extended release spironolactone 25 mg PO DAILY 03/29/20 03/29/20 Unknown History Allergies Allergy/AdvReac Type Severity Reaction Status Date / Time No Known Allergies Allergy Verified 03/29/20 15:40 Current Medications Current Medications Generic Name Dose Route Start Last Admin Trade Name Freq PRN Reason Stop Dose Admin Hydrocodone Bitart/Acetaminophen 1 - 2 tab 03/30/20 09:49 03/31/20 08:42 Tilly 5-325 Mg PO 2 tab Q4H PRN Administration MODERATE TO SEVERE PAIN Aspirin 81 mg 03/30/20 09:00 03/31/20 08:42 Aspirin Ec PO 81 mg DAILY NICHOLAS Administration Atorvastatin Calcium 40 mg 03/30/20 09:00 03/31/20 08:42 Lipitor PO 40 mg DAILY NICHOLAS Administration Carvedilol 3.125 mg 03/30/20 12:15 03/31/20 08:42 Coreg PO 3.125 mg BID NICHOLAS Administration Famotidine 20 mg 03/29/20 20:58 03/31/20 08:41 Pepcid Inj IVP 20 mg Q12H NICHOLAS Administration Furosemide 40 mg 03/30/20 07:30 03/31/20 04:58 Lasix IVP Not Given Q12H NICHOLAS Heparin Sodium (Beef Lung) 5,000 unit 03/29/20 20:58 03/31/20 08:41 Heparin SUBCUT 5,000 unit Q12H NICHOLAS Administration Sodium Chloride 1,000 mls @ 75 mls/hr 03/31/20 10:15 03/31/20 15:34 Sodium Chloride 0.9% IV 75 mls/hr .[id number] NICHOLAS Administration Insulin Aspart 0 unit 03/29/20 18:00 03/31/20 11:47 Novolog SUBCUT Not Given TIDWM NICHOLAS Protocol Insulin Detemir 5 unit 03/30/20 21:00 03/30/20 20:33 Levemir SUBCUT 5 unit BEDTIME NICHOLAS Administration Levalbuterol HCl 0.63 mg 03/30/20 00:00 03/31/20 15:36 Xopenex INHALATION 0.63 mg Q4H.RESPIRATORY NICHOLAS Administration Morphine Sulfate 1 - 3 mg 03/29/20 20:58 03/31/20 12:50 Morphine IVP 2 mg Q2H PRN Administration SEVERE PAIN Spironolactone 25 mg 03/30/20 09:00 03/30/20 08:43 Aldactone PO Not Given DAILY NICHOLAS PFSH Acute PFSH: Medical History Anasarca ASHD (arteriosclerotic heart disease) Cardiomyopathy CHF (congestive heart failure) Cleft palate and cleft lip Diabetes Dyslipidemia HTN (hypertension) Myocardial infarction Surgical History Cleft palate Surgically repaired History of tonsillectomy Leg fracture, left Lower leg fractures repaired with rods and bone grafts S/P PTCA (percutaneous transluminal coronary angioplasty) Family History Other Diabetes Social History Smoking and tobacco status: never smoked Alcohol intake: current Alcohol intake frequency: holidays/special occasions only Household members: spouse Marital status: Vitals/I&O/Wt Last Vital Signs Temp 98.6 F 03/31/20 15:35 Pulse 72 03/31/20 15:40 Resp 17 03/31/20 15:40 BP 112/82 03/31/20 15:35 Pulse Ox 94 03/31/20 15:40 03/31/20 03/31/20 03/31/20 06:59 14:59 22:59 Intake Total 470 / 1680 1060 / 1060 398.75 / 1458.75 Output Total 250 / 250 230 / 230 30 / 260 Balance 220 / 1430 830 / 830 368.75 / 1198.75 Weight last 48 hrs Weight 100.108 kg Physical Exam Const: COMMON NORMALS: no acute distress GENERAL APPEARANCE: cooperative and comfortable ORIENTATION/CONSCIOUSNESS: Yes awake Eye: COMMON NORMALS: no scleral icterus Resp: COMMON NORMALS: normal respiratory effort and clear to auscultation bilaterally AUSCULTATION: clear to auscultation bilaterally Cardio: COMMON NORMALS: regular rate and regular rhythm RATE: regular rate RHYTHM: regular rhythm Extremity: GENERAL: Yes edema (trace bilateral) Skin: NARRATIVE SKIN EXAM: redness, abrasion left leg he states has been present for months Urinary Catheter Management^: Meng: Cath Placed During This Visit: no Reason for Continuing Indwelling Catheter: Acute Urinary Retention or Obstruction Data Micro: Micro: Microbiology 03/29/20 15:58 Blood Culture - Pr eliminary Blood NEGATIVE TO VELMA E 03/29/20 15:28 Blood Culture - Pr eliminary Blood NEGATIVE TO VELMA E Other Data: Other data: Renal ultrasound: normal size, normal echogenicity 1. No hydronephrosis in either kidney. 2. Large right renal cyst measuring 7.1 x 6.4 CCM. ECHO LV systolic function is severely reduced with EF of 25 to 30%. Severe global hypokinesis need noted. Diastolic function is abnormal. Elevated RA pressure. Moderate pulmonary hypertension. At least moderate tricuspid regurgitation. Abdominal US: no ascites CT with contrast Adrenals: Normal. No mass. Kidneys and ureters: 7 and 3.2 cm simple appearing right renal cysts. Left kidney contains 3 subcm low-density probable cysts. A&P Additional A&P Information 1. Acute kidney injury, oliguric, meng in place. Urine sodium 25 and FeNa < 1% consistent with prerenal state, also contrast nephropathy can results in same findings 2. Hyperkalemia, hyponatremia. Was on spironolactone, received KCl today 3. Cardiomyopathy with EF 25-30% 4. Post-op blateral inguinal hernia repair Recommend: Change IVF to D5 with NaHCO3, check urinalysis and CK. Repeat labs in AM Consult Attestations Medical Necessity Statement: requires continued hospitalization for Acute kidney injury, hyperkalemia Coding Level of Care Code Acute Manager Product Marketing for Alexandriag Issa
[2020-03-31 17:01] LABS: Glucose Point of Care 155 mg/dL (70-110)
--- NOTE | 2020-03-31 18:39 | PC.NURSE ---
pt had a rather uneventful shift. resting in bed after dinner. fluids running, call light within place. no needs identified at this time. will continue to monitor.
--- NOTE | 2020-03-31 20:44 | PC.NURSE ---
Patient showing increased signs of confusion. Pulling at telemetry and other lines. Observed decreased output continues. Fluids running at 75ml/hr as ordered by Dr Ozuna. Provided redirection to patient. Administered meds as ordered.
[2020-03-31 20:53] LABS: Glucose Point of Care 166 mg/dL (70-110)
[2020-03-31 21:06] LABS: Protein Urine 1+ (Negative); Specific Gravity, Urine 1.025 (1.005-1.030); Urine Appearance Cloudy (CLEAR); Urine Color Dark Yellow (Yellow); pH Urine 5 (5-7)
[2020-03-31 21:07] LABS: Add Urine Culture? Yes; Bacteria Urine 2+ /hpf; Bilirubin Urine 1+ (Negative); Blood Urine 3+ (Negative); Glucose Urine UA Norm (Normal); Ketones Urine 1+ (Negative); Leukocyte Esterase Urine 2+ (Negative); Nitrate Urine Negative (Negative); Squamous Epithelial Cell Urine 0-4 /hpf (0-5); Urobilinogen Urine Norm (Negative)
[2020-04-01] VITALS (10 sets, daily range): BP systolic 101–140; BP diastolic 65–80; PULSE 67–79; RESP 13–24; TEMP 36.5–36.9; O2SAT 93–97
--- NOTE | 2020-04-01 02:11 | PC.NURSE ---
Patient continues to have decreased output. Fluids continue to run as ordered. Patient resting with eyes closed. No pain currently per FLACC. No other distress observed.
[2020-04-01 06:13] LABS: Basophils # 0.1 10^3/uL (0.0-0.1); Basophils % 0.6 %; Eosinophils # 0.3 10^3/uL (0.0-0.8); Hematocrit 28.5 % (42.0-52.0); Hemoglobin 9.1 g/dL (11.7-16.6); Lymphocytes # 1.4 10^3/uL (0.8-4.8); Lymphocytes % 16.3 %; Mean Corpuscular HGB Conc 31.9 g/dL (30.0-36.0); Mean Corpuscular Hemoglobin 28.1 pg (28.0-34.0); Mean Platelet Volume 11.8 fL (7.4-10.4); Monocytes # 0.9 10^3/uL (0.2-0.9); Monocytes % 9.8 %; Neutrophils % 69.7 %; Nucleated Red Blood Cells % 0 %; Platelet Count 183 10^3/cmm (130-400); Red Blood Count 3.24 10^6/uL (4.1-5.3); Red Cell Distribution Width 15.9 % (12.1-15.1); White Blood Count 8.8 10^3/uL (4.0-10.0)
[2020-04-01 06:20] LABS: INR 1.28 (0.8-1.2)
[2020-04-01 06:36] LABS: Glucose Point of Care 157 mg/dL (70-110)
[2020-04-01 06:44] LABS: Alanine Aminotransferase < 5 U/L (0-41); Albumin Level 3.2 g/dL (3.5-5.2); Alkaline Phosphatase 117 IU/L (40-130); Anion Gap 16.1 (5-19); Aspartate Amino Transferase 16 U/L (0-40); Blood Urea Nitrogen 70 mg/dL (8-23); Calcium 8.5 mg/dL (8.5-10.5); Carbon Dioxide 23 mmol/L (22-29); Chloride 89 mmol/L (98-107); Globulin 3.8 g/dL (1.3-4.6); Glucose 149 mg/dL (65-115); Osmolality Calculated 258 mOsm/kg (285-295); Phosphorus 6.4 mg/dL (2.5-4.5); Potassium 5.1 mmol/L (3.5-5.1); Sodium 123 mmol/L (136-145); Total Bilirubin 0.6 mg/dL (0.15-1.2)
[2020-04-01 06:48] LABS: Creatine Phosphokinase 92 U/L (39-308)
--- NOTE | 2020-04-01 07:44 | P.PN_ITS ---
Subjective Subjective: Interval history: The patient feels well today. He is passing flatus and would like some solid food. He says he does not have very much discomfort. Vitals/I&O/Wt Last Vital Signs Temp 98 F 04/01/20 04:00 Pulse 79 04/01/20 04:00 Resp 17 04/01/20 04:00 BP 140/80 04/01/20 04:00 Pulse Ox 95 04/01/20 04:00 03/31/20 04/01/20 04/01/20 22:59 06:59 14:59 Intake Total 758.75 / 1818.75 Output Total 30 / 410 150 / 410 Balance 728.75 / 1408.75 -150 / 1408.75 Weight last 48 hrs Weight 220 lb 11.2 oz Physical Exam Narrative: EXAM NARRATIVE: Abdomen reveals better bowel sounds today. The incision is well approximated. Urinary Catheter Management^: Bustos: Cath Placed During This Visit: no Reason for Continuing Indwelling Catheter: Acute Urinary Retention or Obstruction Data : 04/01/20 05:48 04/01/20 05:48 A&P Assessment and plan (1) Acute renal failure superimposed on chronic kidney disease: The patient's creatinine continues to rise, but it appears as if it may be plateauing. Patient's urine output appears to be improving. Appreciate hospitalist's and business banking representative's help. Status: Acute (2) Bilateral inguinal hernia: Status post reduction and repair of bilateral incarcerated inguinal hernias on 03/29/2020. Status: Acute (3) Bowel obstruction: Status post reduction and repair of incarcerated right inguinal hernia on 03/29/2020. Bowel function seems to have returned. I am going to start the patient on some solid food. Status: Acute Attestations Medical Necessity Statement*: Patient requires ongoing inpatient care following reduction and repair of bilateral inguinal hernias and ongoing treatment for acute kidney injury. Coding Level of Care Code Acute Candle Extrusion Machine Operator for Chaitanya Parsons Diagnoses Acute renal failure superimposed on chronic kidney disease N17.9; N18.9 Bilateral inguinal hernia K40.20 Bowel obstruction K56.609
--- NOTE | 2020-04-01 07:48 | P.PN_ITS ---
Subjective Subjective: Interval history: No complaints. No pain, no dyspnea. Diet being advanced today. Medications: Reviewed: Yes Vitals/I&O/Wt Last Vital Signs Temp 98 F 04/01/20 04:00 Pulse 79 04/01/20 04:00 Resp 17 04/01/20 04:00 BP 140/80 04/01/20 04:00 Pulse Ox 95 04/01/20 04:00 03/31/20 04/01/20 04/01/20 22:59 06:59 14:59 Intake Total 758.75 / 1818.75 Output Total 30 / 260 150 / 410 Balance 728.75 / 1558.75 -150 / 1408.75 Weight last 48 hrs Weight 100.108 kg Physical Exam Const: COMMON NORMALS: no acute distress GENERAL APPEARANCE: cooperative Resp: COMMON NORMALS: normal respiratory effort and clear to auscultation bilaterally AUSCULTATION: clear to auscultation bilaterally Cardio: COMMON NORMALS: regular rate and regular rhythm RATE: regular rate RHYTHM: regular rhythm Extremity: GENERAL: Yes edema (trace bilateral) Urinary Catheter Management^: Meng: Cath Placed During This Visit: no Reason for Continuing Indwelling Catheter: Acute Urinary Retention or Obstruction Data : 04/01/20 05:48 04/01/20 05:48 Other Labs: Today: Na 123, K 5.1, BUN 70, Cr 4.1, Ca 8.5, phos 6.1 CK 92 Urine + WBC, 1+ protein A&P Additional A&P Information 1. Acute kidney injury, oliguric, meng in place. Urine sodium 25 and FeNa < 1% consistent with prerenal state, also contrast nephropathy can result in same findings. Urine output slightly better. 2. Hyperkalemia, hyponatremia. Was on spironolactone, received KCl yesterday. Potassium better today. Sodium slighltly lower. 3. Pyurina, rule-out UTI 4. Cardiomyopathy with EF 25-30% 5. Post-op blateral inguinal hernia repair Recommend: Discontinue IVF, order urine C&S, keep meng in for now. Resume oral lasix 40 mg daily. Repeat labs 04/02/2020. Attestations Medical Necessity Statement*: requires continued hospitalization for MICHAEL, electrolyte imbalance Time Spent in Patient Care: 16 - 35 minutes Coding Level of Care Code Acute Reduction Plant Supervisor for Chg Issa
--- NOTE | 2020-04-01 08:25 | PC.SOCIAL ---
IMM Page 2 of IMM explained to patient. Initialed, dated, and timed and placed in chart. Copy provided to patient.
[2020-04-01] MEDS: levalbuterol 0.63 mg/3 mL Neb INHALATION ×5 (08:43→15:59)
[2020-04-01] MEDS: cefTRIAXone 1,000 MG in sodium chloride 0.9% (plus) 50 ML 100 MG IV (09:29)
[2020-04-01] MEDS: famotidine 20 mg/2 mL INJ IVP ×2 (09:31→20:32)
[2020-04-01] MEDS: carvedilol 3.125 mg Tablet PO ×2 (09:32→17:26)
[2020-04-01] MEDS: FUROsemide 40 mg Tablet PO (09:32)
[2020-04-01] MEDS: aspirin 81 mg EC Tablet PO (09:32)
[2020-04-01] MEDS: atorvastatin 40 mg Tablet PO (09:32)
[2020-04-01] MEDS: polyethylene glycol 3350 Pkt 17 gm PO (09:33)
[2020-04-01] MEDS: heparin 5,000 unit/mL INJ 1 mL 5000 UNIT SUBCUT ×2 (09:33→20:31)
[2020-04-01 11:46] LABS: Glucose Point of Care 168 mg/dL (70-110)
[2020-04-01] MEDS: HYDROcodone-acetaminophen 5-325 mg Tablet PO ×3 (11:56→23:30)
[2020-04-01 12:43] LABS: Sodium 124 mmol/L (136-145)
--- NOTE | 2020-04-01 15:16 | P.PN_ITS ---
Subjective Subjective: Interval history: Appear to be laying flat denies any problem, there is no lower extremity edema but abdominal wall appeared to be wall edema Medications: Reviewed: Yes Vitals/I&O/Wt Last Vital Signs Temp 97.8 F 04/01/20 11:35 Pulse 72 04/01/20 12:10 Resp 16 04/01/20 12:07 BP 102/65 04/01/20 11:35 Pulse Ox 93 04/01/20 12:07 04/01/20 04/01/20 04/01/20 06:59 14:59 22:59 Intake Total 480 / 480 Output Total 150 / 410 Balance -150 / 1408.75 480 / 480 Weight last 48 hrs Weight 220 lb 11.2 oz Physical Exam Narrative: EXAM NARRATIVE: GENERAL: Patient is alert, awake and oriented x3. NECK: No jugular vein distension. HEENT: No cyanosis. No icterus. No pallor. HEART: Regular S1 and S2. No murmur, rub or gallop. LUNGS: Decreased bilaterally. ABDOMEN: Soft, nontender mildly distended with abdominal wall edema CENTRAL NERVOUS SYSTEM: Grossly nonfocal. EXTREMITIES: Lower extremities without edema bilaterally. Urinary Catheter Management^: Bustos: Cath Placed During This Visit: no Reason for Continuing Indwelling Catheter: Accurate Measurement of Urinary Output in Critically Ill Patients Data : 04/01/20 05:48 04/01/20 12:08 A&P Assessment and plan (1) Systolic heart failure: By physical examination except abdominal wall edema patient is not appear to be decompensated I will continue to monitor as per nephrology assessment as well since it appeared to be more prerenal or contrast-induced nephropathy. I will avoid Lasix until he starts showing signs of shortness of breath and that case cardiorenal pathology can be assessed and we can start for diuresing. Status: Acute Qualifiers: Heart failure chronicity: chronic Qualified Code(s): I50.22 - Chronic systolic (congestive) heart failure (2) CKD (chronic kidney disease): Worsening of renal function, appear to be prerenal. Continue to monitor as per nephrology Status: Acute Qualifiers: Chronic kidney disease stage: stage 3 (moderate) Qualified Code(s): N18.3 - Chronic kidney disease, stage 3 (moderate) (3) ASHD (arteriosclerotic heart disease): Appear to be stable. Continue to optimize medicine as per vitals Status: Acute (4) Incarcerated right inguinal hernia: As per surgery Status: Acute Attestations Medical Necessity Statement*: Require continuation of hospitalization for above defined care. 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
--- NOTE | 2020-04-01 15:33 | PM.PN ---
Subjective Subjective: Interval history: This morning patient was examined, he is laying in bed, surgical staple site looks clean and dry, states that he is doing well, still having pain over the right flank, but overall doing better, no nausea, no vomiting, no lightheadedness, no dizziness, urine output has slowly improved, creatinine has plateaued at 4.1, serum sodium has dropped to 124, no headaches, no blurry vision, no seizure-like episodes Vitals/I&O/Wt Last Vital Signs Temp 97.8 F 04/01/20 11:35 Pulse 72 04/01/20 12:10 Resp 16 04/01/20 12:07 BP 102/65 04/01/20 11:35 Pulse Ox 93 04/01/20 12:07 04/01/20 04/01/20 04/01/20 06:59 14:59 22:59 Intake Total 480 / 480 Output Total 150 / 410 Balance -150 / 1408.75 480 / 480 Weight last 48 hrs Weight 100.108 kg Physical Exam Const: COMMON NORMALS: no acute distress and patient oriented x3 HENMT: COMMON NORMALS: normocephalic HEAD & SCALP: normocephalic Neck/C-Spine: COMMON NORMALS: no JVD Resp: COMMON NORMALS: normal respiratory effort, No retractions, No use of accessory muscles and clear to auscultation bilaterally AUSCULTATION: clear to auscultation bilaterally Cardio: COMMON NORMALS: no JVD, regular rate, regular rhythm, S1 normal heart sound present and S2 normal heart sound present RATE: regular rate RHYTHM: regular rhythm HEART SOUNDS: S1 normal heart sound present and S2 normal heart sound present GI: COMMON NORMALS: Normal to inspection, nondistended, normoactive bowel sounds present, Soft to palpation, non-tender, No hepatosplenomegaly present, no masses and no bruits PALPATION: Yes Soft to palpation and Yes No hepatosplenomegaly present OTHER: Surgical site, lev, lower abdomen, look clean and dry Extremity: COMMON NORMALS: capillary refill normal, no clubbing, cyanosis or edema, no calf tenderness and no pedal edema Neuro: COMMON NORMALS: patient oriented x3 Psych: COMMON NORMALS: mental status grossly normal Urinary Catheter Management^: Bustos: Cath Placed During This Visit: no Reason for Continuing Indwelling Catheter: Accurate Measurement of Urinary Output in Critically Ill Patients Data : 04/01/20 05:48 04/01/20 12:08 A&P Assessment and plan (1) Acute renal failure superimposed on chronic kidney disease: -Patient's creatinine has plateaued at 4.1, serum sodium 124 -Fractional excretion of urea is 7.4, prerenal -Fractional excretion of sodium 0.%, Prerenal -Renal ultrasound does not show any hydronephrosis, large left renal cyst, does show enlarged prostate, ultrasound of the pelvis does not show any free fluid -Bedside ultrasound showed that the bladder was collapsed, Bustos catheter was seen inside bladder -With the nurses we checked patient's Bustos catheter, its flushes well, free-flowing, 60 cc of normal saline was injected into Bustos catheter, on ultrasound bladder dilated, no visible leak -So far patient has had 410 cc urine output yesterday -Likely acute renal failure from dehydration, Lasix therapy, some degree from cardiorenal syndrome Plan: -Hold all nephrotoxic agents -Monitor ins and outs closely -Hydration on hold -Monitor serum sodium, potassium -I have consulted nephrology Status: Acute (2) Hyponatremia: -Likely secondary to MICHAEL, hypovolemic, some component of cardiorenal -Measure serum sodium every 6 hours, neurochecks, seizure precautions Status: Acute (3) Incarcerated right inguinal hernia: -CT scan shows;1.) Large right inguinal hernia. Hernia sac contains loops of distal small bowel and associated mesentery as well as cecum and portion of appendix. Hernia resulting in at least a partial small bowel obstruction with fluid dilated loops of overlying intraperitoneal mid small bowel and transition zone at level of hernia neck. Hernia sac contains a moderate amount of ascites suggesting incarceration or less likely strangulation. 2.) Several cm uncomplicated left inguinal hernia containing portion of left colon. 3.) Additional chronic findings as described above. Plan: -Status post bilateral reduction and repair of bilateral incarcerated inguinal hernias by Dr. Edmonds, postop day 2 -Dr. Edmonds has been consulted for surgery -Currently on a clear liquid diet -Heparin for DVT prophylaxis -Protonix for GI prophylaxis Status: Acute (4) Type 2 diabetes mellitus: -Hemoglobin A1c 8.9 -Currently on an insulin sliding scale -Levemir 10 units nightly Status: Acute (5) Hyperlipidemia: -Check lipid panel Status: Acute Qualifiers: Hyperlipidemia type: other hyperlipidemia Qualified Code(s): E78.49 - Other hyperlipidemia (6) Systolic heart failure: -Has a history of CHF, systolic, no history of echocardiogram recently, but did have a cardiac catheterization in December 2013 with a EF of 30%, currently BNP is 6647 -Has a history of CAD, cardiac cath on December 2013, LAD normal, left circumflex normal, RCA chronic occlusion ostial, ramus normal, left MCA single stenosis 60%, currently medically managed -Has not follow-up with cardiology in some time -Patient's EKG shows Q waves in the inferior leads, Q waves in the anterior chest leads -Echocardiogram on this admission shows: LV systolic function is severely reduced with EF of 25 to 30%. Severe global hypokinesis need noted. Diastolic function is abnormal. Elevated RA pressure. Moderate pulmonary hypertension. At least moderate tricuspid regurgitation. Plan: -Stop Lasix therapy -Continue aspirin, statin -Continue Coreg 3.125 twice daily -Encourage ambulation, daily weights, -Currently on 2 L nasal cannula, try to wean -Cardiology on consult, Status: Acute Qualifiers: Heart failure chronicity: chronic Qualified Code(s): I50.22 - Chronic systolic (congestive) heart failure (7) ASHD (arteriosclerotic heart disease): Status: Acute (8) HTN (hypertension): Status: Acute (9) CKD (chronic kidney disease): -Baseline creatinine is roughly 1.4, currently at baseline Status: Acute Qualifiers: Chronic kidney disease stage: stage 3 (moderate) Qualified Code(s): N18.3 - Chronic kidney disease, stage 3 (moderate) Attestations Medical Necessity Statement*: Patient requires hospitalization due to hyponatremia, acute renal failure, systolic heart failure, incarcerated inguinal hernia Coding Level of Care Code Acute Chucking Machine Set Up Operator Tool for [facility] Fwd Diagnoses Acute renal failure superimposed on chronic kidney disease N17.9; N18.9 Hyponatremia E87.1 Incarcerated right inguinal hernia K40.30 Type 2 diabetes mellitus E11.9 Hyperlipidemia E78.49 Hyperlipidemia type: other hyperlipidemia Systolic heart failure I50.22 Heart failure chronicity: chronic ASHD (arteriosclerotic heart disease) I25.10 HTN (hypertension) I10 CKD (chronic kidney disease) N18.3 Chronic kidney disease stage: stage 3 (moderate)
[2020-04-01 17:38] LABS: Glucose Point of Care 111 mg/dL (70-110)
[2020-04-01 19:11] LABS: Sodium 120 mmol/L (136-145)
--- NOTE | 2020-04-01 19:27 | PC.NURSE ---
Patient states that his abdominal incision hurts when he coughs, but does not hurt when he is still. Patient has no other complaints at this time. Patient was assisted from chair to bed. Will monitor.
[2020-04-01 20:41] LABS: Glucose Point of Care 187 mg/dL (70-110)
[2020-04-02] VITALS (10 sets, daily range): BP systolic 106–135; BP diastolic 64–80; PULSE 68–77; RESP 12–21; TEMP 36.4–36.9; O2SAT 93–97
[2020-04-02 01:50] LABS: Basophils % 0.5 %; Eosinophils # 0.3 10^3/uL (0.0-0.8); Eosinophils % 3.9 %; Hematocrit 28.7 % (42.0-52.0); Hemoglobin 9.2 g/dL (11.7-16.6); Lymphocytes # 1.2 10^3/uL (0.8-4.8); Lymphocytes % 14.4 %; Mean Corpuscular HGB Conc 32.1 g/dL (30.0-36.0); Mean Corpuscular Volume 87.2 fL (80-94); Mean Platelet Volume 12.1 fL (7.4-10.4); Monocytes # 0.8 10^3/uL (0.2-0.9); Monocytes % 9.6 %; Neutrophils # 5.66 10^3/uL (1.8-7.7); Nucleated Red Blood Cells % 0 %; Platelet Count 201 10^3/cmm (130-400); Red Blood Count 3.29 10^6/uL (4.1-5.3); Red Cell Distribution Width 15.8 % (12.1-15.1)
[2020-04-02 02:06] LABS: Alanine Aminotransferase < 5 U/L (0-41); Albumin Level 3.1 g/dL (3.5-5.2); Alkaline Phosphatase 152 IU/L (40-130); Anion Gap 17.1 (5-19); Aspartate Amino Transferase 22 U/L (0-40); Blood Urea Nitrogen 74 mg/dL (8-23); Calcium 8.8 mg/dL (8.5-10.5); Carbon Dioxide 23 mmol/L (22-29); Chloride 89 mmol/L (98-107); Globulin 4.1 g/dL (1.3-4.6); Glucose 124 mg/dL (65-115); Magnesium 2.2 mg/dL (1.7-2.3); Osmolality Calculated 259 mOsm/kg (285-295); Phosphorus 5.7 mg/dL (2.5-4.5); Potassium 5.1 mmol/L (3.5-5.1); Sodium 124 mmol/L (136-145); Total Bilirubin 0.6 mg/dL (0.15-1.2); Total Protein 7.2 g/dL (6.6-8.7)
[2020-04-02] MEDS: morphine 4 mg/mL SDV 1 mL IVP (02:47)
--- NOTE | 2020-04-02 03:02 | PC.NURSE ---
PRN pain medication given per patient request. Will monitor.
[2020-04-02 06:31] LABS: Glucose Point of Care 110 mg/dL (70-110)
--- NOTE | 2020-04-02 07:21 | P.PN_ITS ---
Subjective Subjective: Interval history: feels better. has edema, no sob, abd distention, is eating Medications: Reviewed: Yes Medication Review Details: Current Medications Hydrocodone Bitart/Acetaminophen ([place] 5-325 Mg) 1 - 2 tab PO Q4H PRN PRN Reason: MODERATE TO SEVERE PAIN Last Admin: 04/01/20 23:30 Dose: 2 tab Documented by: Aspirin (Aspirin Ec) 81 mg PO DAILY [facility] Last Admin: 04/01/20 09:32 Dose: 81 mg Documented by: Atorvastatin Calcium (Lipitor) 40 mg PO DAILY [facility] Last Admin: 04/01/20 09:32 Dose: 40 mg Documented by: Carvedilol (Coreg) 3.125 mg PO BID [facility] Last Admin: 04/01/20 17:26 Dose: 3.125 mg Documented by: Dextrose (D50w) 25 ml IVP ONCE PRN; Protocol PRN Reason: hypoglycemia protocol Dextrose (D50w) 50 ml IVP PRN PRN; Protocol PRN Reason: hypoglycemia protocol Famotidine (Pepcid Inj) 20 mg IVP Q12H [facility] Last Admin: 04/01/20 20:32 Dose: 20 mg Documented by: Furosemide (Lasix) 40 mg PO DAILY@0800 [facility] Last Admin: 04/01/20 09:32 Dose: 40 mg Documented by: Glucagon (Glucagen) 1 mg IM ONCE PRN; Protocol PRN Reason: Adult Acute Hypoglycemia Prot. Heparin Sodium (Beef Lung) (Heparin) 5,000 unit SUBCUT Q12H [facility] Last Admin: 04/01/20 20:31 Dose: 5,000 unit Documented by: Dextrose (D5w) 500 mls @ 100 mls/hr IV ONCE PRN; Protocol PRN Reason: Adult Acute Hypoglycemia Prot Ceftriaxone Sodium 1,000 mg/ (Sodium Chloride) 50 mls @ 100 mls/hr IV Q24H [facility]ICHOL[facility]; Protocol Last Admin: 04/01/20 09:29 Dose: 100 mls/hr Documented by: Insulin Aspart (Novolog) 0 unit SUBCUT TIDWM [facility]ICHOL[facility]; Protocol Last Admin: 04/01/20 17:26 Dose: Not Given Documented by: Insulin Detemir (Levemir) 5 unit SUBCUT BEDTIME [facility] Last Admin: 04/01/20 20:32 Dose: 5 unit Documented by: Levalbuterol HCl (Xopenex) 0.63 mg INHALATION Q4H.RESPIRATORY [facility] Last Admin: 04/01/20 15:59 Dose: 0.63 mg Documented by: Morphine Sulfate (Morphine) 1 - 3 mg IVP Q2H PRN PRN Reason: SEVERE PAIN Last Admin: 04/02/20 02:47 Dose: 3 mg Documented by: Ondansetron HCl (Zofran) 4 mg IVP Q4H PRN PRN Reason: NAUSEA AND VOMITING Polyethylene Glycol (Miralax) 17 gm PO DAILY [facility] Last Admin: 04/01/20 09:33 Dose: 17 gm Documented by: Vitals/I&O/Wt Last Vital Signs Temp 98.3 F 04/02/20 04:00 Pulse 71 04/02/20 04:00 Resp 18 04/02/20 04:00 BP 133/80 04/02/20 04:00 Pulse Ox 97 04/02/20 04:00 04/01/20 04/02/20 04/02/20 22:59 06:59 14:59 Intake Total 240 / 720 Output Total 1300 / 1300 200 / 1500 Balance -1060 / -580 -200 / -780 Physical Exam Narrative: EXAM NARRATIVE: vss nard obese heent- nc/at, eomi neck supple lung- dull bases heart reg, no rub abd soft, distended, +BS, surgical sites clean ext 1+ edema neuro- a,a,o x3 Urinary Catheter Management^: Bustos: Cath Placed During This Visit: no Reason for Continuing Indwelling Catheter: Acute Urinary Retention or Obstruction Data : 04/02/20 01:18 04/02/20 01:18 A&P Additional A&P Information 79 yr old man s/p b/l inguinal hernia repair 1. chronic systolic chf- ef 25% 2/ MICHAEL- likely IRON and ATN while on aldactone. pt given fluids and does not appear dry -will d/c ivf -lasix as needed as per cardiology -k improved -monitor uop, chemistries 2. hyponatremia from MICHAEL and chf- free water restrict 3. uti- ceftriaxone Attestations Medical Necessity Statement*: ki, hyponatremia, chf- chronic systolic Time Spent in Patient Care: 16 - 35 minutes Coding Level of Care Code Acute Academic Department Chair for Chaitanya Parsons
[2020-04-02] MEDS: levalbuterol 0.63 mg/3 mL Neb INHALATION ×2 (07:35)
[2020-04-02] MEDS: cefTRIAXone 1,000 MG in sodium chloride 0.9% (plus) 50 ML 100 MG IV (08:18)
[2020-04-02] MEDS: aspirin 81 mg EC Tablet PO (08:19)
[2020-04-02] MEDS: heparin 5,000 unit/mL INJ 1 mL 5000 UNIT SUBCUT ×2 (08:19→20:28)
[2020-04-02] MEDS: atorvastatin 40 mg Tablet PO (08:19)
[2020-04-02] MEDS: carvedilol 3.125 mg Tablet PO ×2 (08:19→17:33)
[2020-04-02] MEDS: famotidine 20 mg/2 mL INJ IVP ×2 (08:19→20:29)
[2020-04-02] MEDS: polyethylene glycol 3350 Pkt 17 gm PO (08:20)
[2020-04-02 08:53] LABS: Anion Gap 18.7 (5-19); Blood Urea Nitrogen 75 mg/dL (8-23); Carbon Dioxide 23 mmol/L (22-29); Chloride 88 mmol/L (98-107); Glucose 98 mg/dL (65-115); NT Pro B Type Natriuretic Pept 5346 pg/mL (0-450); Osmolality Calculated 260 mOsm/kg (285-295); Potassium 4.7 mmol/L (3.5-5.1); Sodium 125 mmol/L (136-145)
--- NOTE | 2020-04-02 09:05 | USR_ITS ---
PROCEDURE INFORMATION: Exam: US Scrotum Exam date and time: 04/02/2020 3:47 PM Age: 79 years old Clinical indication: Swelling, testicles or scrotum; Additional info: Fluid? TECHNIQUE: Imaging protocol: Real-time ultrasound of the scrotum and contents with color Doppler and image documentation. COMPARISON: No relevant prior studies available. FINDINGS: Right testicle: Normal. No mass. No torsion. Normal vascular flow. Right testicle measures 4.2 cm x 2.2 cm x 2.7 cm. Left testicle: Negative for mass lesion Poor vascular flow. Need urology consultation. The left testicle measures 3.1 cm x 2.3 cm x 2.5 cm. Epididymides: Normal. Left 7.1 mm, right 8.8 mm Scrotum: Moderate volume hydrocele right side thickened heterogenous wall . Right 1.7 cm, left 1.6 cm US/US scrotum 25212 IMPRESSION: 1. Significantly decreased vascular flow in the left testicle need urology consultation . 2. Otherwise negative for intrinsic testicular abnormalities in the right or left testicle. 3. Right side hydrocele 4. A heterogenous thickened bilateral scrotal wall
--- NOTE | 2020-04-02 09:42 | PM.PN ---
Subjective Subjective: Interval history: The patient says he is feeling better. He is eating without difficulty. He continues to pass flatus. He has not had a bowel movement yet but feels like he is getting ready to. Vitals/I&O/Wt Last Vital Signs Temp 97.8 F 04/02/20 07:48 Pulse 71 04/02/20 07:48 Resp 12 04/02/20 07:48 BP 135/78 04/02/20 07:48 Pulse Ox 97 04/02/20 07:48 04/01/20 04/02/20 04/02/20 22:59 06:59 14:59 Intake Total 240 / 770 Output Total 300 / 500 200 / 500 Balance -60 / 270 -200 / 270 Physical Exam Narrative: EXAM NARRATIVE: Bowel sounds are present. The incision looks okay. As expected, the patient has significant scrotal swelling involving the space that was created following reduction of all of his intestine at the time of his hernia repair. The Bustos catheter remains in place. Urinary Catheter Management^: Bustos: Cath Placed During This Visit: no Reason for Continuing Indwelling Catheter: Acute Urinary Retention or Obstruction Data : 04/02/20 01:18 04/02/20 07:50 Micro: Microbiology 04/01/20 09:33 Urine Culture - Preliminary Urine Catheterized Yeast A&P Assessment and plan (1) Acute renal failure superimposed on chronic kidney disease: It appears the patient's creatinine has plateaued in its rise. Hope to see improvement in the next couple of days. Status: Acute (2) Bilateral inguinal hernia: Status post reduction and repair of bilateral incarcerated inguinal hernias on 03/29/2020. Status: Acute (3) Bowel obstruction: Status post reduction and repair of incarcerated right inguinal hernia on 03/29/2020. Bowel function seems to have returned. Continue MiraLAX daily. Status: Acute Attestations Medical Necessity Statement*: The patient requires continued inpatient care following his significant hernia operation and acute kidney injury. Coding Level of Care Code Acute Plant Physiology Teacher for Chaitanya Parsons Diagnoses Acute renal failure superimposed on chronic kidney disease N17.9; N18.9 Bilateral inguinal hernia K40.20 Bowel obstruction K56.609
[2020-04-02 10:59] LABS: Glucose Point of Care 163 mg/dL (70-110)
[2020-04-02] MEDS: HYDROcodone-acetaminophen 5-325 mg Tablet PO ×2 (11:51→22:20)
[2020-04-02 12:04] LABS: Alanine Aminotransferase < 5 U/L (0-41); Albumin Level 3.2 g/dL (3.5-5.2); Alkaline Phosphatase 156 IU/L (40-130); Aspartate Amino Transferase 29 U/L (0-40); Blood Urea Nitrogen 75 mg/dL (8-23); Calcium 8.9 mg/dL (8.5-10.5); Carbon Dioxide 23 mmol/L (22-29); Chloride 88 mmol/L (98-107); Globulin 4.3 g/dL (1.3-4.6); Glucose 150 mg/dL (65-115); Osmolality Calculated 260 mOsm/kg (285-295); Sodium 124 mmol/L (136-145); Total Bilirubin 0.6 mg/dL (0.15-1.2); Total Protein 7.5 g/dL (6.6-8.7)
[2020-04-02 12:09] LABS: Anion Gap 18.2 (5-19); Potassium 5.2 mmol/L (3.5-5.1)
--- NOTE | 2020-04-02 13:01 | P.PN_ITS ---
Subjective Subjective: Interval history: Overall feeling more sleepy abdomen is more distended. He appeared to be tender as well. Medications: Reviewed: Yes Medication Review Details: Current Medications Hydrocodone Bitart/Acetaminophen ([place] 5-325 Mg) 1 - 2 tab PO Q4H PRN PRN Reason: MODERATE TO SEVERE PAIN Last Admin: 04/01/20 23:30 Dose: 2 tab Documented by: Aspirin (Aspirin Ec) 81 mg PO DAILY [facility] Last Admin: 04/01/20 09:32 Dose: 81 mg Documented by: Atorvastatin Calcium (Lipitor) 40 mg PO DAILY [facility] Last Admin: 04/01/20 09:32 Dose: 40 mg Documented by: Carvedilol (Coreg) 3.125 mg PO BID [facility] Last Admin: 04/01/20 17:26 Dose: 3.125 mg Documented by: Dextrose (D50w) 25 ml IVP ONCE PRN; Protocol PRN Reason: hypoglycemia protocol Dextrose (D50w) 50 ml IVP PRN PRN; Protocol PRN Reason: hypoglycemia protocol Famotidine (Pepcid Inj) 20 mg IVP Q12H [facility] Last Admin: 04/01/20 20:32 Dose: 20 mg Documented by: Furosemide (Lasix) 40 mg PO DAILY@0800 [facility] Last Admin: 04/01/20 09:32 Dose: 40 mg Documented by: Glucagon (Glucagen) 1 mg IM ONCE PRN; Protocol PRN Reason: Adult Acute Hypoglycemia Prot. Heparin Sodium (Beef Lung) (Heparin) 5,000 unit SUBCUT Q12H [facility] Last Admin: 04/01/20 20:31 Dose: 5,000 unit Documented by: Dextrose (D5w) 500 mls @ 100 mls/hr IV ONCE PRN; Protocol PRN Reason: Adult Acute Hypoglycemia Prot Ceftriaxone Sodium 1,000 mg/ (Sodium Chloride) 50 mls @ 100 mls/hr IV Q24H [facility]; Protocol Last Admin: 04/01/20 09:29 Dose: 100 mls/hr Documented by: Insulin Aspart (Novolog) 0 unit SUBCUT TIDWM [facility]; Protocol Last Admin: 04/01/20 17:26 Dose: Not Given Documented by: Insulin Detemir (Levemir) 5 unit SUBCUT BEDTIME [facility] Last Admin: 04/01/20 20:32 Dose: 5 unit Documented by: Levalbuterol HCl (Xopenex) 0.63 mg INHALATION Q4H.RESPIRATORY [facility] Last Admin: 04/01/20 15:59 Dose: 0.63 mg Documented by: Morphine Sulfate (Morphine) 1 - 3 mg IVP Q2H PRN PRN Reason: SEVERE PAIN Last Admin: 04/02/20 02:47 Dose: 3 mg Documented by: Ondansetron HCl (Zofran) 4 mg IVP Q4H PRN PRN Reason: NAUSEA AND VOMITING Polyethylene Glycol (Miralax) 17 gm PO DAILY [facility] Last Admin: 04/01/20 09:33 Dose: 17 gm Documented by: Vitals/I&O/Wt Last Vital Signs Temp 97.8 F 04/02/20 12:00 Pulse 74 04/02/20 12:00 Resp 21 H 04/02/20 12:00 BP 106/67 04/02/20 12:00 Pulse Ox 97 04/02/20 12:00 04/01/20 04/02/20 04/02/20 22:59 06:59 14:59 Intake Total 240 / 770 240 / 240 Output Total 300 / 300 200 / 500 Balance -60 / 470 -200 / 270 240 / 240 Physical Exam Narrative: EXAM NARRATIVE: GENERAL: Patient is alert, awake and oriented x3. NECK: No jugular vein distension. HEENT: No cyanosis. No icterus. No pallor. HEART: Regular S1 and S2. No murmur, rub or gallop. LUNGS: Decreased bilaterally. ABDOMEN: Abdomin distended with abdominal wall edema, diffusely tender to touch sluggish bowel sounds CENTRAL NERVOUS SYSTEM: Grossly nonfocal. EXTREMITIES: Lower extremities with 1+ edema bilaterally. Urinary Catheter Management^: Bustos: Cath Placed During This Visit: no Reason for Continuing Indwelling Catheter: Acute Urinary Retention or Obstruction Data : 04/02/20 01:18 04/02/20 11:26 Micro: Microbiology 04/01/20 09:33 Urine Culture - Preliminary Urine Catheterized Yeast A&P Assessment and plan (1) Systolic heart failure: Patient appeared to be moving towards decompensated systolic heart failure I have discussed the case with our nephrology colleagues they are in agreement at this point we will start patient on Lasix 60 IV twice daily. Further plan will be advised as per diuresis and looking at his creatinine function. Status: Acute Qualifiers: Heart failure chronicity: chronic Qualified Code(s): I50.22 - Chronic systolic (congestive) heart failure (2) CKD (chronic kidney disease): Hopefully with diuresis it will improve rest is as per nephrology Status: Acute Qualifiers: Chronic kidney disease stage: stage 3 (moderate) Qualified Code(s): N18.3 - Chronic kidney disease, stage 3 (moderate) (3) ASHD (arteriosclerotic heart disease): Appear to be stable. Continue to optimize medicine as per vitals Status: Acute (4) Incarcerated right inguinal hernia: As per surgery Status: Acute Attestations Medical Necessity Statement*: Require continuation hospitalization for above defined care Coding Level of Care Code Established Pt Acute Warehouse Driver for Chg Fwd Patient Type Established History Expanded Problem Focused Exam Expanded Problem Focused Medical Decision Making Moderate Complexity Diagnoses Systolic heart failure I50.22 Heart failure chronicity: chronic CKD (chronic kidney disease) N18.3 Chronic kidney disease stage: stage 3 (moderate) ASHD (arteriosclerotic heart disease) I25.10 Incarcerated right inguinal hernia K40.30
[2020-04-02] MEDS: FUROsemide 10 mg/mL SDV 10mL 60 MG IVP (13:11)
[2020-04-02 16:51] LABS: Glucose Point of Care 195 mg/dL (70-110)
--- NOTE | 2020-04-02 18:43 | PC.NURSE ---
left buttock skin tear noted.cleansed w/saline and optifoam applied.scrotum is very edematous..has been elevated as ordered for most of shift.ultrasound of testicles to be repeated in morning.had 225cc urine out after 60 mg lasix given iv today.
--- NOTE | 2020-04-02 19:42 | PC.NURSE ---
Patient states that his abdomen does not hurt when he is lying still and only hurts when he moves. Not tender to touch, but firm. Bowel sounds active. Patient has not had a BM in several day. MD aware. Will monitor.
[2020-04-02 20:16] LABS: Glucose Point of Care 159 mg/dL (70-110)
[2020-04-02] MEDS: nystatin powder 15 gm Btl 1 APPLIC TOPICAL (20:28)
--- NOTE | 2020-04-02 22:48 | PM.PN ---
Subjective Subjective: Interval history: Patient is overall doing better, no pain complaints, a bit frustrated about still being in the hospital, no fevers, no chills, no chest pain, no shortness of breath Vitals/I&O/Wt Last Vital Signs Temp 98.0 F 04/02/20 19:28 Pulse 77 04/02/20 22:18 Resp 16 04/02/20 22:18 BP 119/78 04/02/20 19:28 Pulse Ox 95 04/02/20 22:18 04/02/20 04/02/20 04/02/20 06:59 14:59 22:59 Intake Total 480 / 480 360 / 840 Output Total 200 / 500 325 / 325 225 / 550 Balance -200 / 270 155 / 155 135 / 290 Physical Exam Const: COMMON NORMALS: no acute distress and patient oriented x3 HENMT: COMMON NORMALS: normocephalic HEAD & SCALP: normocephalic Neck/C-Spine: COMMON NORMALS: no JVD Resp: COMMON NORMALS: normal respiratory effort, No retractions, No use of accessory muscles and clear to auscultation bilaterally AUSCULTATION: clear to auscultation bilaterally Cardio: COMMON NORMALS: no JVD, regular rate, regular rhythm, S1 normal heart sound present and S2 normal heart sound present RATE: regular rate RHYTHM: regular rhythm HEART SOUNDS: S1 normal heart sound present and S2 normal heart sound present GI: COMMON NORMALS: Normal to inspection, nondistended, normoactive bowel sounds present, Soft to palpation, non-tender, No hepatosplenomegaly present, no masses and no bruits PALPATION: Yes Soft to palpation and Yes No hepatosplenomegaly present OTHER: Surgical site looks clean and dry : OTHER: Right scrotum, significant hydrocele seen Extremity: COMMON NORMALS: capillary refill normal, no clubbing, cyanosis or edema, no calf tenderness and no pedal edema Neuro: COMMON NORMALS: patient oriented x3 Psych: COMMON NORMALS: mental status grossly normal Urinary Catheter Management^: Bsutos: Cath Placed During This Visit: no Reason for Continuing Indwelling Catheter: Acute Urinary Retention or Obstruction Data : 04/02/20 01:18 04/02/20 11:26 Micro: Microbiology 04/01/20 09:33 Urine Culture - Preliminary Urine Catheterized Yeast A&P Assessment and plan (1) Right hydrocele: -Does have significant right testicular swelling, does transilluminate, looks like fluid -No significant plain -I did do a testicular ultrasound: 1. Significantly decreased vascular flow in the left testicle need urology consultation . 2. Otherwise negative for intrinsic testicular abnormalities in the right or left testicle. 3. Right side hydrocele 4. A heterogenous thickened bilateral scrotal wall -However he has no pain complaints -I talked to the pharmacy technician trainee, she tells me it was a very difficult study given the right hydrocele -Currently creatinine is 4.1, cannot really do a CT with contrast, but again is asymptomatic so I think that the risk would outweigh the benefit -Currently managing through scrotal elevation, topical nystatin for yeast infection, and ice pack -Do not have urology in house, will repeat ultrasound tomorrow, will do a dedicated study -If any concerns, for ischemia, consider speaking to outside urologist Status: Acute (2) Hyponatremia: -Likely secondary to MICHAEL, hypovolemic, some component of cardiorenal -Measure serum sodium every 6 hours, neurochecks, seizure precautions -Serum sodium levels 140 Status: Acute (3) Acute renal failure superimposed on chronic kidney disease: -Patient's creatinine has plateaued at 4.1, serum sodium 124 -Fractional excretion of urea is 7.4, prerenal -Fractional excretion of sodium 0.%, Prerenal -Renal ultrasound does not show any hydronephrosis, large left renal cyst, does show enlarged prostate, ultrasound of the pelvis does not show any free fluid -Bedside ultrasound showed that the bladder was collapsed, Bustos catheter was seen inside bladder -With the nurses we checked patient's Bustos catheter, its flushes well, free-flowing, 60 cc of normal saline was injected into Bustos catheter, on ultrasound bladder dilated, no visible leak -So far patient has had 410 cc urine output yesterday -Likely acute renal failure from dehydration, Lasix therapy, some degree from cardiorenal syndrome Plan: -Hold all nephrotoxic agents -Monitor ins and outs closely -Hydration on hold -Monitor serum sodium, potassium -I have consulted nephrology Status: Acute (4) Incarcerated right inguinal hernia: -CT scan shows;1.) Large right inguinal hernia. Hernia sac contains loops of distal small bowel and associated mesentery as well as cecum and portion of appendix. Hernia resulting in at least a partial small bowel obstruction with fluid dilated loops of overlying intraperitoneal mid small bowel and transition zone at level of hernia neck. Hernia sac contains a moderate amount of ascites suggesting incarceration or less likely strangulation. 2.) Several cm uncomplicated left inguinal hernia containing portion of left colon. 3.) Additional chronic findings as described above. Plan: -Status post bilateral reduction and repair of bilateral incarcerated inguinal hernias by Dr. Edmonds, -Dr. Edmonds has been consulted for surgery -Currently on a clear liquid diet -Heparin for DVT prophylaxis -Protonix for GI prophylaxis Status: Acute (5) Type 2 diabetes mellitus: -Hemoglobin A1c 8.9 -Currently on an insulin sliding scale -Levemir 10 units nightly Status: Acute (6) Hyperlipidemia: -Check lipid panel Status: Acute Qualifiers: Hyperlipidemia type: other hyperlipidemia Qualified Code(s): E78.49 - Other hyperlipidemia (7) Systolic heart failure: -Has a history of CHF, systolic, no history of echocardiogram recently, but did have a cardiac catheterization in December 2013 with a EF of 30%, currently BNP is 6647 -Has a history of CAD, cardiac cath on December 2013, LAD normal, left circumflex normal, RCA chronic occlusion ostial, ramus normal, left MCA single stenosis 60%, currently medically managed -Has not follow-up with cardiology in some time -Patient's EKG shows Q waves in the inferior leads, Q waves in the anterior chest leads -Echocardiogram on this admission shows: LV systolic function is severely reduced with EF of 25 to 30%. Severe global hypokinesis need noted. Diastolic function is abnormal. Elevated RA pressure. Moderate pulmonary hypertension. At least moderate tricuspid regurgitation. Plan: -Daily dose Lasix therapy -Continue aspirin, statin -Continue Coreg 3.125 twice daily -Encourage ambulation, daily weights, -Currently on 2 L nasal cannula, try to wean -Cardiology on consult, Status: Acute Qualifiers: Heart failure chronicity: chronic Qualified Code(s): I50.22 - Chronic systolic (congestive) heart failure (8) ASHD (arteriosclerotic heart disease): Status: Acute (9) HTN (hypertension): Status: Acute (10) CKD (chronic kidney disease): -Baseline creatinine is roughly 1.4, currently at baseline Status: Acute Qualifiers: Chronic kidney disease stage: stage 3 (moderate) Qualified Code(s): N18.3 - Chronic kidney disease, stage 3 (moderate) Attestations Medical Necessity Statement*: Requires hospitalization due to hyponatremia, systolic heart failure, MICHAEL, inguinal hernia surgery Coding Level of Care Code Acute Roll Up Machine Operator for Chg Fwd Diagnoses Right hydrocele N43.3 Hyponatremia E87.1 Acute renal failure superimposed on chronic kidney disease N17.9; N18.9 Incarcerated right inguinal hernia K40.30 Type 2 diabetes mellitus E11.9 Hyperlipidemia E78.49 Hyperlipidemia type: other hyperlipidemia Systolic heart failure I50.22 Heart failure chronicity: chronic ASHD (arteriosclerotic heart disease) I25.10 HTN (hypertension) I10 CKD (chronic kidney disease) N18.3 Chronic kidney disease stage: stage 3 (moderate)
[2020-04-03] VITALS (8 sets, daily range): BP systolic 116–140; BP diastolic 71–84; PULSE 65–78; RESP 13–18; TEMP 36.6–36.9; O2SAT 96–99
[2020-04-03] MEDS: FUROsemide 10 mg/mL SDV 10mL 60 MG IVP (00:10)
--- NOTE | 2020-04-03 00:46 | PC.NURSE ---
Patient stated that he is not in pain at this time. Will monitor.
--- NOTE | 2020-04-03 03:09 | PC.NURSE ---
Patient this morning stated I'm tired of messing around, I want out of here. Patient quickly calmed down and was assisted to chair with 2 assist. Will monitor.
[2020-04-03 05:04] LABS: Basophils % 0.5 %; Eosinophils # 0.5 10^3/uL (0.0-0.8); Eosinophils % 7.3 %; Hematocrit 31.2 % (42.0-52.0); Hemoglobin 9.8 g/dL (11.7-16.6); Lymphocytes # 1.4 10^3/uL (0.8-4.8); Lymphocytes % 18.5 %; Mean Corpuscular HGB Conc 31.4 g/dL (30.0-36.0); Mean Corpuscular Hemoglobin 27.8 pg (28.0-34.0); Mean Corpuscular Volume 88.4 fL (80-94); Mean Platelet Volume 11.6 fL (7.4-10.4); Monocytes # 0.9 10^3/uL (0.2-0.9); Neutrophils # 4.54 10^3/uL (1.8-7.7); Neutrophils % 61.3 %; Nucleated Red Blood Cells % 0 %; Platelet Count 286 10^3/cmm (130-400); Red Blood Count 3.53 10^6/uL (4.1-5.3); Red Cell Distribution Width 15.9 % (12.1-15.1); White Blood Count 7.4 10^3/uL (4.0-10.0)
[2020-04-03 05:38] LABS: Alanine Aminotransferase < 5 U/L (0-41); Albumin Level 3.3 g/dL (3.5-5.2); Alkaline Phosphatase 168 IU/L (40-130); Anion Gap 19.7 (5-19); Aspartate Amino Transferase 24 U/L (0-40); Blood Urea Nitrogen 75 mg/dL (8-23); Carbon Dioxide 21 mmol/L (22-29); Chloride 86 mmol/L (98-107); Globulin 4.2 g/dL (1.3-4.6); Glucose 116 mg/dL (65-115); Magnesium 2.3 mg/dL (1.7-2.3); Osmolality Calculated 255 mOsm/kg (285-295); Phosphorus 5.5 mg/dL (2.5-4.5); Potassium 4.7 mmol/L (3.5-5.1); Sodium 122 mmol/L (136-145); Total Bilirubin 0.6 mg/dL (0.15-1.2); Total Protein 7.5 g/dL (6.6-8.7)
--- NOTE | 2020-04-03 06:00 | US_ITS ---
WS: [id number] TESTICULAR ULTRASOUND HISTORY: swelling COMPARISON: 04/02/2020 TECHNIQUE: Real-time and color Doppler imaging or utilized to perform a testicular ultrasound. Right testicle: 3.7 cm x 2.2 cm x 2.1 cm. Normal size and echogenicity. No mass or torsion. Color Doppler is present. Limited diastolic flow is present within the testicle. Echogenicity remains normal. Small surrounding complex hydrocele. There are multiple septations within the hydrocele. Right epididymis: There is marked enlargement of the epididymis. Increased vascularity and heterogene ity throughout the epididymis. There is marked increased vascularity within the epididymis. Marked th ickening of the scrotal wall. Left testicle: 3.8 cm x 1.6 cm x 2.1 cm. Mildly heterogeneous appearance of the LEFT testicle. Color Doppler is present. Systolic and diastolic velocities are present. Small surrounding hydrocele. Left epididymis: Normal appearance of the epididymis. There is significant scrotal wall thickening and edema. US/US scrotum [id number] IMPRESSION: 1. Marked enlargement, edema, increased vascularity and heterogeneity in the R IGHT epididymis consistent with acute epididymitis. 2. No torsion identified. There is limited diastolic flow within the RIGHT nilesh ticles which can be seen with intermittent or partial torsion. Otherwise the ec hogenicity and size are normal. 3. Small bilateral hydroceles. RIGHT hydrocele is complex with septations. 4. Continued diffuse scrotal wall thickening and edema. 5. No recurrent hernia.
[2020-04-03 06:36] LABS: Glucose Point of Care 151 mg/dL (70-110)
--- NOTE | 2020-04-03 06:52 | P.PN_ITS ---
Subjective Subjective: Interval history: feels better. sitting up wih no sob. still has edema. no n/v/f/c/weldon/d. confusion overnight Medications: Reviewed: Yes Medication Review Details: Current Medications Hydrocodone Bitart/Acetaminophen ([place] 5-325 Mg) 1 - 2 tab PO Q4H PRN PRN Reason: MODERATE TO SEVERE PAIN Last Admin: 04/02/20 22:20 Dose: 2 tab Documented by: Aspirin (Aspirin Ec) 81 mg PO DAILY [facility] Last Admin: 04/02/20 08:19 Dose: 81 mg Documented by: Atorvastatin Calcium (Lipitor) 40 mg PO DAILY [facility] Last Admin: 04/02/20 08:19 Dose: 40 mg Documented by: Carvedilol (Coreg) 3.125 mg PO BID [facility] Last Admin: 04/02/20 17:33 Dose: 3.125 mg Documented by: Dextrose (D50w) 25 ml IVP ONCE PRN; Protocol PRN Reason: hypoglycemia protocol Dextrose (D50w) 50 ml IVP PRN PRN; Protocol PRN Reason: hypoglycemia protocol Famotidine (Pepcid Inj) 20 mg IVP Q12H [facility] Last Admin: 04/02/20 20:29 Dose: 20 mg Documented by: Furosemide (Lasix) 60 mg IVP Q12H [facility] Last Admin: 04/03/20 00:10 Dose: 60 mg Documented by: Glucagon (Glucagen) 1 mg IM ONCE PRN; Protocol PRN Reason: Adult Acute Hypoglycemia Prot. Heparin Sodium (Beef Lung) (Heparin) 5,000 unit SUBCUT Q12H [facility] Last Admin: 04/02/20 20:28 Dose: 5,000 unit Documented by: Dextrose (D5w) 500 mls @ 100 mls/hr IV ONCE PRN; Protocol PRN Reason: Adult Acute Hypoglycemia Prot Ceftriaxone Sodium 1,000 mg/ (Sodium Chloride) 50 mls @ 100 mls/hr IV Q24H [facility]; Protocol Last Admin: 04/02/20 08:18 Dose: 100 mls/hr Documented by: Insulin Aspart (Novolog) 0 unit SUBCUT TIDWM [facility]; Protocol Last Admin: 04/02/20 17:33 Dose: 4 unit Documented by: Insulin Detemir (Levemir) 5 unit SUBCUT BEDTIME [facility] Last Admin: 04/02/20 20:28 Dose: 5 unit Documented by: Levalbuterol HCl (Xopenex) 0.63 mg INHALATION Q4H.RESPIRATORY [facility] Last Admin: 04/02/20 22:18 Dose: Not Given Documented by: Morphine Sulfate (Morphine) 1 - 3 mg IVP Q2H PRN PRN Reason: SEVERE PAIN Last Admin: 04/02/20 02:47 Dose: 3 mg Documented by: Nystatin (Nystatin Powder) 1 applic TOPICAL BID [facility] Last Admin: 04/02/20 20:28 Dose: 1 applic Documented by: Ondansetron HCl (Zofran) 4 mg IVP Q4H PRN PRN Reason: NAUSEA AND VOMITING Polyethylene Glycol (Miralax) 17 gm PO DAILY [facility] Last Admin: 04/02/20 08:20 Dose: 17 gm Documented by: Vitals/I&O/Wt Last Vital Signs Temp 98.3 F 04/03/20 03:38 Pulse 68 04/03/20 03:38 Resp 16 04/03/20 03:38 BP 120/78 04/03/20 03:38 Pulse Ox 97 04/03/20 03:38 04/02/20 04/02/20 04/03/20 14:59 22:59 06:59 Intake Total 480 / 480 360 / 840 500 / 1340 Output Total 325 / 325 225 / 550 375 / 925 Balance 155 / 155 135 / 290 125 / 415 Physical Exam Narrative: EXAM NARRATIVE: vss nard obese heent- nc/at, eomi neck supple lung- improved air movement b/l heart reg, no rub abd soft, distended, +BS, surgical sites clean ext 1+ edema neuro- a,a,o x1-2 Urinary Catheter Management^: Bustos: Cath Placed During This Visit: no Reason for Continuing Indwelling Catheter: Acute Urinary Retention or Obstruction Data : 04/03/20 04:18 04/03/20 04:18 Micro: Microbiology 04/01/20 09:33 Urine Culture - Preliminary Urine Catheterized Yeast A&P Additional A&P Information 79 yr old man s/p b/l inguinal hernia repair 1. chronic systolic chf- ef 25% -clinically improved after lasix. will dec dose, as having post- ATN diuresis -monitor bnp 2/ MICHAEL- likely IRON and ATN while on aldactone. pt given fluids and does not appear dry -cr improving -dec dose of lasix -monitor uop, chemistries -k okay -phos improving 3. hyponatremia from MICHAEL and chf- free water restrict -dec lsix and monitor -may need tolvaptan if na does not improve 4. uti- ceftriaxone 5. left scrotal edema/ swelling per medicine 6. DM management 7. anemia0 hgb up to 9.8 Attestations Medical Necessity Statement*: michael, b/l hernia repair, hyponatremia, AMS, scrotal swelling Time Spent in Patient Care: 16 - 35 minutes Coding Level of Care Code Acute Chucking Lathe Operator for Chaitanya Parsons
[2020-04-03 08:15] LABS: NT Pro B Type Natriuretic Pept 5166 pg/mL (0-450)
[2020-04-03] MEDS: carvedilol 3.125 mg Tablet PO ×2 (08:45→17:37)
[2020-04-03] MEDS: atorvastatin 40 mg Tablet PO (08:45)
[2020-04-03] MEDS: famotidine 20 mg/2 mL INJ IVP ×2 (08:46→20:00)
[2020-04-03] MEDS: heparin 5,000 unit/mL INJ 1 mL 5000 UNIT SUBCUT ×2 (08:46→20:00)
[2020-04-03] MEDS: aspirin 81 mg EC Tablet PO (08:46)
[2020-04-03] MEDS: FUROsemide 10 mg/mL SDV 10mL 40 MG IVP (08:47)
[2020-04-03] MEDS: nystatin powder 15 gm Btl 1 APPLIC TOPICAL (08:58)
[2020-04-03] MEDS: polyethylene glycol 3350 Pkt 17 gm PO (08:59)
[2020-04-03] MEDS: cefTRIAXone 1,000 MG in sodium chloride 0.9% (plus) 50 ML 100 MG IV (09:02)
--- NOTE | 2020-04-03 09:59 | PM.PN ---
Subjective Subjective: Interval history: The patient has no specific complaints this morning. Dr. Landin indicated the patient is now going to be diuresed. His Bustos catheter remains in place. I noticed that the patient had a scrotal ultrasound yesterday. He has some decreased vascular flow involving the left testicle, but I suspect this is probably chronic. He does NOT have a hydrocele; this is all fluid that is filling up the space from the presence of his herniated contents. I expect this is going to resolve by itself. I do not think any further imaging is necessary. Vitals/I&O/Wt Last Vital Signs Temp 98.2 F 04/03/20 07:37 Pulse 72 04/03/20 07:37 Resp 13 04/03/20 07:37 BP 119/73 04/03/20 07:37 Pulse Ox 99 04/03/20 07:37 04/02/20 04/03/20 04/03/20 22:59 06:59 14:59 Intake Total 360 / 1390 500 / 1390 360 / 360 Output Total 225 / 925 375 / 925 Balance 135 / 465 125 / 465 360 / 360 Physical Exam Narrative: EXAM NARRATIVE: The incision looks good. It occupies an intertriginous area so I am going to have nursing keep some gauze in the area to keep the area from staying damp. The patient scrotum is probably half the size it was yesterday. Urinary Catheter Management^: Bustos: Cath Placed During This Visit: no Reason for Continuing Indwelling Catheter: Acute Urinary Retention or Obstruction Data : 04/03/20 04:18 04/03/20 04:18 Micro: Microbiology 04/01/20 09:33 Urine Culture - Preliminary Urine Catheterized Yeast A&P Assessment and plan (1) Acute renal failure superimposed on chronic kidney disease: Creatinine and is now starting to come back down. I will have the patient's Bustos catheter discontinued when it is okay with all involved following his diuresis. Status: Acute (2) Bilateral inguinal hernia: Status post reduction and repair of bilateral incarcerated inguinal hernias on 03/29/2020. Status: Acute (3) Bowel obstruction: Status post reduction and repair of incarcerated right inguinal hernia on 03/29/2020. Bowel function seems to have returned. Continue MiraLAX daily. Status: Acute Attestations Medical Necessity Statement*: Patient requires continued inpatient care for monitoring following his surgery and acute kidney injury. Coding Level of Care Code Acute Director Of Product Marketing for Chg Fwd Diagnoses Acute renal failure superimposed on chronic kidney disease N17.9; N18.9 Bilateral inguinal hernia K40.20 Bowel obstruction K56.609
--- NOTE | 2020-04-03 10:00 | PC.NURSE ---
Dr. Edmonds at bedside. Continue current plan of care. Add Interdry to fold with incision to keep incision CDI, RVCO. Interdry placed, nurse to contine to monitor.
--- NOTE | 2020-04-03 10:15 | PC.SOCIAL ---
IMM Updated Page 2 of IMM updated and given to patient. Initialed, dated, and timed and placed back in chart.
[2020-04-03 11:16] LABS: Glucose Point of Care 251 mg/dL (70-110)
[2020-04-03] MEDS: morphine 4 mg/mL SDV 1 mL IVP ×2 (11:36→22:33)
--- NOTE | 2020-04-03 13:08 | PC.CHAP ---
Pastoral Care Encounter/Spiritual Assessment Type of Contact [x] Declined silver solution mixer visit [] Patient/Family/Request visit [] Outpatient visit [] Follow-up visit [] Physician referral [] Code/Alert [] Routine visit [] Staff referral [] Actively dying [] Patient sleeping [] Family support [] [] Out of room [] Palliative care [] [] Receiving care in room [] Pre-surgical visit [] Trauma [] Long length of stay [] ICU visit [] Other: Relational/Emotional Strength [] Patient feels connected with others/family/visitors/staff [] Distress [] Loneliness/isolation [] Abandonment Spirituality of Patient [] Person of Shelli [] Attends Baptism of their Shelli [] Believes in Prayer [] Reads Bible or Lutheran materials [] There are Spiritual issues to be addressed Manager Hotel Interventions [] Prayer [] Active listening [] Non-anxious presence [] Spiritual/emotional support [] Crisis/trauma care [] Spiritual counseling [] Bereavement support [] Provided bereavement packet [] Provided Bible/devotional materials [] Provided toy/stuffed animal, coloring book to patient or family member [] Provided Communion [] Anointing/Mehama [] Salvation [] Completed spiritual assessment [] Other: Impact on Illness or Injury [] Angry [] Fearful [] Anxious [] Often cries [] Exhaustion [] Unable to work [] Unable to attend judaism [] Unable to walk/stand [] Unable to read [] Unable to drive [] Unable to eat/drink [] Unable to sleep [] Unable to be with family [] Patient intubated [] Other: Summary Patient declined a silver solution mixer visit. Manager Hotel instructed the patient to let his nurse know if there was anything he needed from the chaplains and they would contact us. Patient was visited by Manager Hotel Davin Lindsey. Time spent with patient 5 minutes
--- NOTE | 2020-04-03 13:38 | PC.NURSE ---
Scrotal lymphedema wrap placed by OT, scrtoum elevated. Patient tolerated well. Nurse to continue to monitor.
[2020-04-03 14:47] LABS: Alanine Aminotransferase < 5 U/L (0-41); Albumin Level 3.5 g/dL (3.5-5.2); Alkaline Phosphatase 197 IU/L (40-130); Aspartate Amino Transferase 24 U/L (0-40); Calcium 8.7 mg/dL (8.5-10.5); Carbon Dioxide 25 mmol/L (22-29); Chloride 87 mmol/L (98-107); Globulin 4.3 g/dL (1.3-4.6); Glucose 181 mg/dL (65-115); Osmolality Calculated 265 mOsm/kg (285-295); Sodium 125 mmol/L (136-145); Total Bilirubin 0.5 mg/dL (0.15-1.2); Total Protein 7.8 g/dL (6.6-8.7)
[2020-04-03 15:04] LABS: Blood Urea Nitrogen 86 mg/dL (8-23)
[2020-04-03 16:51] LABS: Glucose Point of Care 151 mg/dL (70-110)
[2020-04-03] MEDS: HYDROcodone-acetaminophen 5-325 mg Tablet 1 TAB PO ×2 (17:37→21:42)
[2020-04-03 20:25] LABS: Glucose Point of Care 191 mg/dL (70-110)
--- NOTE | 2020-04-03 20:49 | PM.PN ---
Subjective Subjective: Interval history: Patient has diuresed well creatinine has improved somewhat little bit better and improved today. Medications: Reviewed: Yes Medication Review Details: Current Medications Hydrocodone Bitart/Acetaminophen ([place] 5-325 Mg) 1 - 2 tab PO Q4H PRN PRN Reason: MODERATE TO SEVERE PAIN Last Admin: 04/02/20 22:20 Dose: 2 tab Documented by: Aspirin (Aspirin Ec) 81 mg PO DAILY [facility] Last Admin: 04/02/20 08:19 Dose: 81 mg Documented by: Atorvastatin Calcium (Lipitor) 40 mg PO DAILY [facility] Last Admin: 04/02/20 08:19 Dose: 40 mg Documented by: Carvedilol (Coreg) 3.125 mg PO BID [facility] Last Admin: 04/02/20 17:33 Dose: 3.125 mg Documented by: Dextrose (D50w) 25 ml IVP ONCE PRN; Protocol PRN Reason: hypoglycemia protocol Dextrose (D50w) 50 ml IVP PRN PRN; Protocol PRN Reason: hypoglycemia protocol Famotidine (Pepcid Inj) 20 mg IVP Q12H [facility] Last Admin: 04/02/20 20:29 Dose: 20 mg Documented by: Furosemide (Lasix) 60 mg IVP Q12H [facility] Last Admin: 04/03/20 00:10 Dose: 60 mg Documented by: Glucagon (Glucagen) 1 mg IM ONCE PRN; Protocol PRN Reason: Adult Acute Hypoglycemia Prot. Heparin Sodium (Beef Lung) (Heparin) 5,000 unit SUBCUT Q12H [facility] Last Admin: 04/02/20 20:28 Dose: 5,000 unit Documented by: Dextrose (D5w) 500 mls @ 100 mls/hr IV ONCE PRN; Protocol PRN Reason: Adult Acute Hypoglycemia Prot Ceftriaxone Sodium 1,000 mg/ (Sodium Chloride) 50 mls @ 100 mls/hr IV Q24H [facility]; Protocol Last Admin: 04/02/20 08:18 Dose: 100 mls/hr Documented by: Insulin Aspart (Novolog) 0 unit SUBCUT TIDWM [facility]; Protocol Last Admin: 04/02/20 17:33 Dose: 4 unit Documented by: Insulin Detemir (Levemir) 5 unit SUBCUT BEDTIME [facility] Last Admin: 04/02/20 20:28 Dose: 5 unit Documented by: Levalbuterol HCl (Xopenex) 0.63 mg INHALATION Q4H.RESPIRATORY [facility] Last Admin: 04/02/20 22:18 Dose: Not Given Documented by: Morphine Sulfate (Morphine) 1 - 3 mg IVP Q2H PRN PRN Reason: SEVERE PAIN Last Admin: 04/02/20 02:47 Dose: 3 mg Documented by: Nystatin (Nystatin Powder) 1 applic TOPICAL BID [facility] Last Admin: 04/02/20 20:28 Dose: 1 applic Documented by: Ondansetron HCl (Zofran) 4 mg IVP Q4H PRN PRN Reason: NAUSEA AND VOMITING Polyethylene Glycol (Miralax) 17 gm PO DAILY [facility] Last Admin: 04/02/20 08:20 Dose: 17 gm Documented by: Vitals/I&O/Wt Last Vital Signs Temp 98.5 F 04/03/20 19:50 Pulse 74 04/03/20 19:50 Resp 15 04/03/20 19:50 BP 118/72 04/03/20 19:50 Pulse Ox 97 04/03/20 19:50 04/03/20 04/03/20 04/03/20 06:59 14:59 22:59 Intake Total 500 / 1390 1010 / 1010 240 / 1250 Output Total 375 / 925 Balance 125 / 465 1010 / 1010 240 / 1250 Physical Exam Narrative: EXAM NARRATIVE: GENERAL: Patient is alert, awake and oriented x3. NECK: No jugular vein distension. HEENT: No cyanosis. No icterus. No pallor. HEART: Regular S1 and S2. No murmur, rub or gallop. LUNGS: Decreased bilaterally. ABDOMEN: Abdomin distended with abdominal wall edema, diffusely tender to touch sluggish bowel sounds CENTRAL NERVOUS SYSTEM: Grossly nonfocal. EXTREMITIES: Lower extremities with 1+ edema bilaterally. Urinary Catheter Management^: Bustos: Cath Placed During This Visit: no Reason for Continuing Indwelling Catheter: Acute Urinary Retention or Obstruction Data : 04/03/20 04:18 04/03/20 14:15 Micro: Microbiology 03/29/20 15:58 Blood Culture - Final Blood NO GROWTH AFTER 5 DAYS 03/29/20 15:28 Blood Culture - Final Blood NO GROWTH AFTER 5 DAYS 04/01/20 09:33 Urine Culture - Preliminary Urine Catheterized Yeast A&P Assessment and plan (1) Systolic heart failure: Patient is decompensated systolic heart failure continue to diurese. Once euvolemic we will optimize medicine Status: Acute Qualifiers: Heart failure chronicity: chronic Qualified Code(s): I50.22 - Chronic systolic (congestive) heart failure (2) CKD (chronic kidney disease): As per medicine Status: Acute Qualifiers: Chronic kidney disease stage: stage 3 (moderate) Qualified Code(s): N18.3 - Chronic kidney disease, stage 3 (moderate) (3) ASHD (arteriosclerotic heart disease): Stable. Continue to monitor Status: Acute (4) Incarcerated right inguinal hernia: As per surgery Status: Acute Attestations Medical Necessity Statement*: Require continuation hospitalization for above defined care. Coding Level of Care Code Established Pt Acute Trolley Operator for Chaitanya Parsons Patient Type Established History Expanded Problem Focused Exam Expanded Problem Focused Medical Decision Making Moderate Complexity Diagnoses Systolic heart failure I50.22 Heart failure chronicity: chronic CKD (chronic kidney disease) N18.3 Chronic kidney disease stage: stage 3 (moderate) ASHD (arteriosclerotic heart disease) I25.10 Incarcerated right inguinal hernia K40.30
--- NOTE | 2020-04-03 21:16 | P.PN_ITS ---
Subjective Subjective: Interval history: no acute overnight events. Seen and examined this morning at ~11:30am. Scrital edema and LE edema persisting, however patient states this appears better today. 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 CVS: S1S2 N RS: CTA B/L Abd: Soft, nt/nd , bs+ BOW STAPLER: no focal neuro deficits Urinary Catheter Management^: Bustos: Cath Placed During This Visit: no Reason for Continuing Indwelling Catheter: Acute Urinary Retention or Obstructi on Data : 04/03/20 04:18 04/03/20 14:15 Micro: Microbiology 03/29/20 15:58 Blood Culture - Final Blood NO GROWTH AFTER 5 DAYS 03/29/20 15:28 Blood Culture - Final Blood NO GROWTH AFTER 5 DAYS 04/01/20 09:33 Urine Culture - Preliminary Urine Catheterized Yeast A&P Assessment and plan (1) Hyponatremia: -Likely secondary to MICHAEL, hypovolemic, some component of cardiorenal -Measure serum sodium every 6 hours, neurochecks, seizure precautions -Serum sodium levels 140 Status: Acute (2) Acute renal failure superimposed on chronic kidney disease: -Patient's creatinine has plateaued at 4.1, now improving to 3.0, serum sodium 124 -Renal ultrasound does not show any hydronephrosis, large left renal cyst, does show enlarged prostate, ultrasound of the pelvis does not show any free fluid -Bedside ultrasound showed that the bladder was collapsed, Bustos catheter was seen inside bladder -Hold all nephrotoxic agents -Monitor ins and outs closely -Monitor serum sodium, potassium -Appreciate nephrology recommendations Status: Acute (3) Incarcerated right inguinal hernia: -Status post bilateral reduction and repair of bilateral incarcerated inguinal h ernias by Dr. Edmonds, -Currently on a clear liquid diet -Heparin for DVT prophylaxis -Protonix for GI prophylaxis Status: Acute (4) Type 2 diabetes mellitus: -Hemoglobin A1c 8.9 -Currently on an insulin sliding scale -Levemir 10 units nightly Status: Acute (5) Hyperlipidemia: -Check lipid panel Status: Acute Qualifiers: Hyperlipidemia type: other hyperlipidemia Qualified Code(s): E78.49 - Other hyperlipidemia (6) Systolic heart failure: -Has a history of CHF, systolic, no history of echocardiogram recently, but did have a cardiac catheterization in December 2013 with a EF of 30%, currently BNP is 6647 -Has a history of CAD, cardiac cath on December 2013, LAD normal, left circumflex normal, RCA chronic occlusion ostial, ramus normal, left MCA single stenosis 60%, currently medically managed LV systolic function is severely reduced with EF of 25 to 30%. Severe global hypokinesis need noted. Diastolic function is abnormal. Elevated RA pressure. Moderate pulmonary hypertension. At least moderate tricuspid regurgitation. Appreciate cardiology recommendations -Continue aspirin, statin -Continue Coreg 3.125 twice daily -Encourage ambulation, daily weights, -Currently on 2 L nasal cannula, try to wean Status: Acute Qualifiers: Heart failure chronicity: chronic Qualified Code(s): I50.22 - Chronic systolic (congestive) heart failure (7) ASHD (arteriosclerotic heart disease): Status: Acute (8) HTN (hypertension): Status: Acute (9) CKD (chronic kidney disease): -Baseline creatinine is roughly 1.4, currently at baseline Status: Acute Qualifiers: Chronic kidney disease stage: stage 3 (moderate) Qualified Code(s): N18.3 - Chronic kidney disease, stage 3 (moderate) (10) Scrotal edema: Appears to be a part of generaalized anasarca. He has some decreased vascular flow involving the left testicle, probably chronic. Appreciate gen/surg assessment Status: Acute Attestations Medical Necessity Statement*: monitor kidney function, ongoing diuresis Coding Level of Care Code Acute Engineering Librarian for [facility] Diagnoses Hyponatremia E87.1 Acute renal failure superimposed on chronic kidney disease N17.9; N18.9 Incarcerated right inguinal hernia K40.30 Type 2 diabetes mellitus E11.9 Hyperlipidemia E78.49 Hyperlipidemia type: other hyperlipidemia Systolic heart failure I50.22 Heart failure chronicity: chronic ASHD (arteriosclerotic heart disease) I25.10 HTN (hypertension) I10 CKD (chronic kidney disease) N18.3 Chronic kidney disease stage: stage 3 (moderate) Scrotal edema N50.89
[2020-04-04] VITALS (10 sets, daily range): BP systolic 86–133; BP diastolic 56–79; PULSE 59–82; RESP 11–24; TEMP 36.4–36.9; O2SAT 94–97
[2020-04-04 04:43] LABS: Basophils # 0.1 10^3/uL (0.0-0.1); Basophils % 0.8 %; Eosinophils # 0.5 10^3/uL (0.0-0.8); Eosinophils % 7.7 %; Hematocrit 27.9 % (42.0-52.0); Lymphocytes # 1.2 10^3/uL (0.8-4.8); Lymphocytes % 19.1 %; Mean Corpuscular HGB Conc 32.3 g/dL (30.0-36.0); Mean Corpuscular Hemoglobin 28.1 pg (28.0-34.0); Mean Corpuscular Volume 87.2 fL (80-94); Mean Platelet Volume 11.1 fL (7.4-10.4); Monocytes # 0.9 10^3/uL (0.2-0.9); Monocytes % 13.9 %; Neutrophils # 3.63 10^3/uL (1.8-7.7); Neutrophils % 57.9 %; Nucleated Red Blood Cells % 0 %; Platelet Count 265 10^3/cmm (130-400); Red Cell Distribution Width 15.8 % (12.1-15.1); White Blood Count 6.3 10^3/uL (4.0-10.0)
[2020-04-04 05:03] LABS: Alanine Aminotransferase < 5 U/L (0-41); Albumin Level 3.2 g/dL (3.5-5.2); Alkaline Phosphatase 192 IU/L (40-130); Anion Gap 15.4 (5-19); Aspartate Amino Transferase 23 U/L (0-40); Calcium 8.5 mg/dL (8.5-10.5); Carbon Dioxide 25 mmol/L (22-29); Chloride 90 mmol/L (98-107); Globulin 3.6 g/dL (1.3-4.6); Glucose 126 mg/dL (65-115); Magnesium 2.2 mg/dL (1.7-2.3); Osmolality Calculated 264 mOsm/kg (285-295); Phosphorus 4.7 mg/dL (2.5-4.5); Potassium 4.4 mmol/L (3.5-5.1); Sodium 126 mmol/L (136-145); Total Bilirubin 0.5 mg/dL (0.15-1.2); Total Protein 6.8 g/dL (6.6-8.7)
[2020-04-04 05:12] LABS: Blood Urea Nitrogen 83 mg/dL (8-23); NT Pro B Type Natriuretic Pept 5617 pg/mL (0-450)
[2020-04-04 06:25] LABS: Glucose Point of Care 143 mg/dL (70-110)
--- NOTE | 2020-04-04 06:45 | P.PN_ITS ---
Subjective Subjective: Interval history: The patient has no complaints this morning. He is anxious to try to go home. Vitals/I&O/Wt Last Vital Signs Temp 98.4 F 04/04/20 03:58 Pulse 74 04/04/20 03:58 Resp 24 H 04/04/20 03:58 BP 116/79 04/04/20 03:58 Pulse Ox 97 04/04/20 03:58 04/03/20 04/03/20 04/04/20 14:59 22:59 06:59 Intake Total 1010 / 1450 240 / 1450 200 / 1450 Output Total 1600 / 2000 400 / 2000 Balance 1010 / -550 -1360 / -550 -200 / -550 Physical Exam Narrative: EXAM NARRATIVE: The incision looks good. The patient scrotum is wrapped in a compressive bandage this morning. Urinary Catheter Management^: Bustos: Cath Placed During This Visit: no Reason for Continuing Indwelling Catheter: Acute Urinary Retention or Obstructio n Data : 04/04/20 04:15 04/04/20 04:15 Micro: Microbiology 03/29/20 15:58 Blood Culture - Final Blood NO GROWTH AFTER 5 DAYS 03/29/20 15:28 Blood Culture - Final Blood NO GROWTH AFTER 5 DAYS 04/01/20 09:33 Urine Culture - Preliminary Urine Catheterized Yeast A&P Assessment and plan (1) Acute renal failure superimposed on chronic kidney disease: Improving. I am going to have the patient's Bustos catheter discontinued a s I anticipate discharge soon. Status: Acute (2) Bilateral inguinal hernia: Status post reduction and repair of bilateral incarcerated inguinal hernias on 03/29/2020. Status: Acute (3) Bowel obstruction: Status post reduction and repair of incarcerated right inguinal hernia on 03/29/2020. Bowel function seems to have returned. Continue MiraLAX daily. Status: Acute Attestations Medical Necessity Statement*: The patient requires ongoing inpatient treatment for acute kidney injury. Coding Level of Care Code Acute Heel Sander Rubber for giancarlo Fwc[facility] Diagnoses Acute renal failure superimposed on chronic kidney disease N17.9; N18.9 Bilateral inguinal hernia K40.20 Bowel obstruction K56.609
--- NOTE | 2020-04-04 07:10 | PM.PN ---
Subjective Subjective: Interval history: feels better. dec sob. poor appetite. wants to go home soon. Medications: Reviewed: Yes Medication Review Details: Current Medications Hydrocodone Bitart/Acetaminophen ([place] 5-325 Mg) 1 tab PO Q4H PRN PRN Reason: MODERATE PAIN Last Admin: 04/03/20 21:42 Dose: 1 tab Documented by: Aspirin (Aspirin Ec) 81 mg PO DAILY [facility] Last Admin: 04/03/20 08:46 Dose: 81 mg Documented by: Atorvastatin Calcium (Lipitor) 40 mg PO DAILY [facility] Last Admin: 04/03/20 08:45 Dose: 40 mg Documented by: Carvedilol (Coreg) 3.125 mg PO BID [facility] Last Admin: 04/03/20 17:37 Dose: 3.125 mg Documented by: Dextrose (D50w) 25 ml IVP ONCE PRN; Protocol PRN Reason: hypoglycemia protocol Dextrose (D50w) 50 ml IVP PRN PRN; Protocol PRN Reason: hypoglycemia protocol Famotidine (Pepcid Inj) 20 mg IVP Q12H [facility] Last Admin: 04/03/20 20:00 Dose: 20 mg Documented by: Furosemide (Lasix) 40 mg IVP DAILY [facility] Last Admin: 04/03/20 08:47 Dose: 40 mg Documented by: Glucagon (Glucagen) 1 mg IM ONCE PRN; Protocol PRN Reason: Adult Acute Hypoglycemia Prot. Heparin Sodium (Beef Lung) (Heparin) 5,000 unit SUBCUT Q12H [facility] Last Admin: 04/03/20 20:00 Dose: 5,000 unit Documented by: Dextrose (D5w) 500 mls @ 100 mls/hr IV ONCE PRN; Protocol PRN Reason: Adult Acute Hypoglycemia Prot Ceftriaxone Sodium 1,000 mg/ (Sodium Chloride) 50 mls @ 100 mls/hr IV Q24H [facility]; Protocol Last Infusion: 04/03/20 09:32 Dose: Infused Documented by: Insulin Aspart (Novolog) 0 unit SUBCUT TIDWM [facility]; Protocol Last Admin: 04/03/20 17:36 Dose: 2 unit Documented by: Insulin Detemir (Levemir) 5 unit SUBCUT BEDTIME [facility] Last Admin: 04/03/20 21:44 Dose: 5 unit Documented by: Levalbuterol HCl (Xopenex) 0.63 mg INHALATION Q4H.RESPIRATORY [facility] Last Admin: 04/03/20 15:49 Dose: Not Given Documented by: Nystatin (Nystatin Powder) 1 applic TOPICAL BID [facility] Last Admin: 04/03/20 17:37 Dose: Not Given Documented by: Ondansetron HCl (Zofran) 4 mg IVP Q4H PRN PRN Reason: NAUSEA AND VOMITING Polyethylene Glycol (Miralax) 17 gm PO DAILY [facility] Last Admin: 04/03/20 08:59 Dose: 17 gm Documented by: Vitals/I&O/Wt Last Vital Signs Temp 98.4 F 04/04/20 03:58 Pulse 74 04/04/20 03:58 Resp 24 H 04/04/20 03:58 BP 116/79 04/04/20 03:58 Pulse Ox 97 04/04/20 03:58 04/03/20 04/04/20 04/04/20 22:59 06:59 14:59 Intake Total 240 / 1250 200 / 1450 Output Total 1600 / 1600 400 / 2000 Balance -1360 / -350 -200 / -550 Physical Exam Narrative: EXAM NARRATIVE: vss nard obese heent- nc/at, eomi neck supple lung- dull bases b/l heart reg, no rub abd soft, distended, +BS, surgical sites clean ext 1+ edema neuro- a,a,o x 2+ Urinary Catheter Management^: Bustos: Cath Placed During This Visit: no Reason for Continuing Indwelling Catheter: Acute Urinary Retention or Obstruction Data : 04/04/20 04:15 04/04/20 04:15 Micro: Microbiology 03/29/20 15:58 Blood Culture - Final Blood NO GROWTH AFTER 5 DAYS 03/29/20 15:28 Blood Culture - Final Blood NO GROWTH AFTER 5 DAYS 04/01/20 09:33 Urine Culture - Preliminary Urine Catheterized Yeast A&P Additional A&P Information 79 yr old man s/p b/l inguinal hernia repair 1. chronic systolic chf- ef 25% -clinically improved after lasix. -cont lasix- 40 mgm iv daily -monitor bnp 2/ MICHAEL- likely IRON and ATN while on aldactone. pt given fluids and does not appear dry -cr improving -good uop -monitor uop, chemistries -k okay -phos normal 3. hyponatremia from MICHAEL and chf- free water restrict -monitor na -may need tolvaptan if na worsens 4. uti- ceftriaxone 5. left scrotal edema/ swelling per medicine- improving 6. DM management 7. anemia- hgb down to 9 Attestations Medical Necessity Statement*: michael, chf, hypontremia Time Spent in Patient Care: 16 - 35 minutes Coding Level of Care Code Acute Insolvency Consultant for Chaitanya Parsons
--- NOTE | 2020-04-04 07:32 | PC.NURSE ---
DISCUSSED CAST REMOVAL WITH DR. WHALEN. DUE TO HIS SCROTAL WRAPS, PHYSICIAN WOULD PREFER TO LEAVE CAST CATHETER IN PLACE THAT HE DOES NOT SOIL THEM FREQUENTLY AND CAUSE SKIN BREAK DOWN.
[2020-04-04] MEDS: nystatin powder 15 gm Btl 1 APPLIC TOPICAL ×2 (09:07→17:49)
[2020-04-04] MEDS: atorvastatin 40 mg Tablet PO (09:07)
[2020-04-04] MEDS: carvedilol 3.125 mg Tablet PO ×2 (09:07→17:45)
[2020-04-04] MEDS: FUROsemide 10 mg/mL SDV 10mL 40 MG IVP (09:07)
[2020-04-04] MEDS: heparin 5,000 unit/mL INJ 1 mL 5000 UNIT SUBCUT ×2 (09:07→20:16)
[2020-04-04] MEDS: cefTRIAXone 1,000 MG in sodium chloride 0.9% (plus) 50 ML 100 MG IV (09:08)
[2020-04-04] MEDS: polyethylene glycol 3350 Pkt 17 gm PO (09:08)
[2020-04-04] MEDS: aspirin 81 mg EC Tablet PO (09:08)
[2020-04-04] MEDS: famotidine 20 mg/2 mL INJ IVP (09:09)
[2020-04-04 10:59] LABS: Glucose Point of Care 214 mg/dL (70-110)
[2020-04-04] MEDS: HYDROcodone-acetaminophen 5-325 mg Tablet 1 TAB PO ×2 (12:20→20:57)
[2020-04-04 16:28] LABS: Glucose Point of Care 225 mg/dL (70-110)
--- NOTE | 2020-04-04 16:33 | P.PN_ITS ---
Subjective Subjective: Interval history: scrotal and LE swelling is improving with scrotal wraps, no new complaints today, cr continues to improve Medications: Reviewed: Yes Medication Review Details: Current Medications Hydrocodone Bitart/Acetaminophen ([place] 5-325 Mg) 1 tab PO Q4H PRN PRN Reason: MODERATE PAIN Last Admin: 04/03/20 21:42 Dose: 1 tab Documented by: Aspirin (Aspirin Ec) 81 mg PO DAILY [facility] Last Admin: 04/03/20 08:46 Dose: 81 mg Documented by: Atorvastatin Calcium (Lipitor) 40 mg PO DAILY [facility] Last Admin: 04/03/20 08:45 Dose: 40 mg Documented by: Carvedilol (Coreg) 3.125 mg PO BID [facility] Last Admin: 04/03/20 17:37 Dose: 3.125 mg Documented by: Dextrose (D50w) 25 ml IVP ONCE PRN; Protocol PRN Reason: hypoglycemia protocol Dextrose (D50w) 50 ml IVP PRN PRN; Protocol PRN Reason: hypoglycemia protocol Famotidine (Pepcid Inj) 20 mg IVP Q12H [facility] Last Admin: 04/03/20 20:00 Dose: 20 mg Documented by: Furosemide (Lasix) 40 mg IVP DAILY [facility] Last Admin: 04/03/20 08:47 Dose: 40 mg Documented by: Glucagon (Glucagen) 1 mg IM ONCE PRN; Protocol PRN Reason: Adult Acute Hypoglycemia Prot. Heparin Sodium (Beef Lung) (Heparin) 5,000 unit SUBCUT Q12H [facility] Last Admin: 04/03/20 20:00 Dose: 5,000 unit Documented by: Dextrose (D5w) 500 mls @ 100 mls/hr IV ONCE PRN; Protocol PRN Reason: Adult Acute Hypoglycemia Prot Ceftriaxone Sodium 1,000 mg/ (Sodium Chloride) 50 mls @ 100 mls/hr IV Q24H [facility]; Protocol Last Infusion: 04/03/20 09:32 Dose: Infused Documented by: Insulin Aspart (Novolog) 0 unit SUBCUT TIDWM [facility]; Protocol Last Admin: 04/03/20 17:36 Dose: 2 unit Documented by: Insulin Detemir (Levemir) 5 unit SUBCUT BEDTIME [facility] Last Admin: 04/03/20 21:44 Dose: 5 unit Documented by: Levalbuterol HCl (Xopenex) 0.63 mg INHALATION Q4H.RESPIRATORY [facility] Last Admin: 04/03/20 15:49 Dose: Not Given Documented by: Nystatin (Nystatin Powder) 1 applic TOPICAL BID [facility] Last Admin: 04/03/20 17:37 Dose: Not Given Documented by: Ondansetron HCl (Zofran) 4 mg IVP Q4H PRN PRN Reason: NAUSEA AND VOMITING Polyethylene Glycol (Miralax) 17 gm PO DAILY [facility] Last Admin: 04/03/20 08:59 Dose: 17 gm Documented by: Vitals/I&O/Wt Last Vital Signs Temp 97.6 F 04/04/20 15:59 Pulse 64 04/04/20 15:59 Resp 17 04/04/20 15:59 BP 120/61 04/04/20 15:59 Pulse Ox 97 04/04/20 15:59 04/04/20 04/04/20 04/04/20 06:59 14:59 22:59 Intake Total 200 / 1450 480 / 480 Output Total 400 / 2000 Balance -200 / -550 480 / 480 Physical Exam Narrative: EXAM NARRATIVE: GEN: Awake, alert and oriented, no acute distress HEENT: baseline appears to have a 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 CVS: S1S2 N RS: CTA B/L Abd: Soft, nt/nd , bs+ NEEDLE BAR MOLDER: no focal neuro deficits Urinary Catheter Management^: Bustos: Cath Placed During This Visit: no Reason for Continuing Indwelling Catheter: Acute Urinary Retention or Obstruction Data : 04/04/20 04:15 04/04/20 04:15 Micro: Microbiology 03/29/20 15:58 Blood Culture - Final Blood NO GROWTH AFTER 5 DAYS 03/29/20 15:28 Blood Culture - Final Blood NO GROWTH AFTER 5 DAYS A&P Assessment and plan (1) Hyponatremia: -Likely secondary to MICHAEL, hypovolemic, some component of cardiorenal -Measure serum sodium every 6 hours, neurochecks, seizure precautions -Serum sodium levels 140 Status: Acute (2) Acute renal failure superimposed on chronic kidney disease: -Patient's creatinine continues to improve -Renal ultrasound does not show any hydronephrosis, large left renal cyst, does show enlarged prostate, ultrasound of the pelvis does not show any free fluid -Bedside ultrasound showed that the bladder was collapsed, Bustos catheter was seen inside bladder -Hold all nephrotoxic agents -Monitor ins and outs closely -Monitor serum sodium, potassium -Appreciate nephrology recommendations Status: Acute (3) Incarcerated right inguinal hernia: -Status post bilateral reduction and repair of bilateral incarcerated inguinal hernias by Dr. Edmonds, -Currently on a clear liquid diet -Heparin for DVT prophylaxis -Protonix for GI prophylaxis Status: Acute (4) Type 2 diabetes mellitus: -Hemoglobin A1c 8.9 -Currently on an insulin sliding scale -Levemir 10 units nightly Status: Acute (5) Hyperlipidemia: -Check lipid panel Status: Acute Qualifiers: Hyperlipidemia type: other hyperlipidemia Qualified Code(s): E78.49 - Other hyperlipidemia (6) Systolic heart failure: -Has a history of CHF, systolic, no history of echocardiogram recently, but did have a cardiac catheterization in December 2013 with a EF of 30%, currently BNP is 6647 -Has a history of CAD, cardiac cath on December 2013, LAD normal, left circumflex normal, RCA chronic occlusion ostial, ramus normal, left MCA single stenosis 60%, currently medically managed LV systolic function is severely reduced with EF of 25 to 30%. Severe global hypokinesis need noted. Diastolic function is abnormal. Elevated RA pressure. Moderate pulmonary hypertension. At least moderate tricuspid regurgitation. Appreciate cardiology recommendations -Continue aspirin, statin -Continue Coreg 3.125 twice daily -Encourage ambulation, daily weights, -Currently on 2 L nasal cannula, try to wean Status: Acute Qualifiers: Heart failure chronicity: chronic Qualified Code(s): I50.22 - Chronic systolic (congestive) heart failure (7) ASHD (arteriosclerotic heart disease): Status: Acute (8) HTN (hypertension): Status: Acute (9) CKD (chronic kidney disease): -Baseline creatinine is roughly 1.4, currently at baseline Status: Acute Qualifiers: Chronic kidney disease stage: stage 3 (moderate) Qualified Code(s): N18.3 - Chronic kidney disease, stage 3 (moderate) (10) Scrotal edema: Appears to be a part of generaalized anasarca. He has some decreased vascular flow involving the left testicle, probably chronic. Appreciate gen/surg assessment. Appears to be improving with diuresis and scotal supports and wraps Status: Acute Attestations Medical Necessity Statement*: per admitting team, ongoing iv diuresis, optimization of volume status Coding Level of Care Code Acute Tire Debeader for Chaitanya Parsons Diagnoses Hyponatremia E87.1 Acute renal failure superimposed on chronic kidney disease N17.9; N18.9 Incarcerated right inguinal hernia K40.30 Type 2 diabetes mellitus E11.9 Hyperlipidemia E78.49 Hyperlipidemia type: other hyperlipidemia Systolic heart failure I50.22 Heart failure chronicity: chronic ASHD (arteriosclerotic heart disease) I25.10 HTN (hypertension) I10 CKD (chronic kidney disease) N18.3 Chronic kidney disease stage: stage 3 (moderate) Scrotal edema N50.89
[2020-04-04] MEDS: famotidine 20 mg Tablet PO (17:45)
--- NOTE | 2020-04-04 18:04 | P.PN_ITS ---
Subjective Subjective: Interval history: Continues to improve breathing better creatinine has improved Medications: Reviewed: Yes Medication Review Details: Current Medications Hydrocodone Bitart/Acetaminophen ([place] 5-325 Mg) 1 tab PO Q4H PRN PRN Reason: MODERATE PAIN Last Admin: 04/03/20 21:42 Dose: 1 tab Documented by: Aspirin (Aspirin Ec) 81 mg PO DAILY [facility] Last Admin: 04/03/20 08:46 Dose: 81 mg Documented by: Atorvastatin Calcium (Lipitor) 40 mg PO DAILY [facility] Last Admin: 04/03/20 08:45 Dose: 40 mg Documented by: Carvedilol (Coreg) 3.125 mg PO BID [facility] Last Admin: 04/03/20 17:37 Dose: 3.125 mg Documented by: Dextrose (D50w) 25 ml IVP ONCE PRN; Protocol PRN Reason: hypoglycemia protocol Dextrose (D50w) 50 ml IVP PRN PRN; Protocol PRN Reason: hypoglycemia protocol Famotidine (Pepcid Inj) 20 mg IVP Q12H [facility] Last Admin: 04/03/20 20:00 Dose: 20 mg Documented by: Furosemide (Lasix) 40 mg IVP DAILY [facility] Last Admin: 04/03/20 08:47 Dose: 40 mg Documented by: Glucagon (Glucagen) 1 mg IM ONCE PRN; Protocol PRN Reason: Adult Acute Hypoglycemia Prot. Heparin Sodium (Beef Lung) (Heparin) 5,000 unit SUBCUT Q12H [facility] Last Admin: 04/03/20 20:00 Dose: 5,000 unit Documented by: Dextrose (D5w) 500 mls @ 100 mls/hr IV ONCE PRN; Protocol PRN Reason: Adult Acute Hypoglycemia Prot Ceftriaxone Sodium 1,000 mg/ (Sodium Chloride) 50 mls @ 100 mls/hr IV Q24H [facility]; Protocol Last Infusion: 04/03/20 09:32 Dose: Infused Documented by: Insulin Aspart (Novolog) 0 unit SUBCUT TIDWM [facility]; Protocol Last Admin: 04/03/20 17:36 Dose: 2 unit Documented by: Insulin Detemir (Levemir) 5 unit SUBCUT BEDTIME [facility] Last Admin: 04/03/20 21:44 Dose: 5 unit Documented by: Levalbuterol HCl (Xopenex) 0.63 mg INHALATION Q4H.RESPIRATORY [facility] Last Admin: 04/03/20 15:49 Dose: Not Given Documented by: Nystatin (Nystatin Powder) 1 applic TOPICAL BID [facility] Last Admin: 04/03/20 17:37 Dose: Not Given Documented by: Ondansetron HCl (Zofran) 4 mg IVP Q4H PRN PRN Reason: NAUSEA AND VOMITING Polyethylene Glycol (Miralax) 17 gm PO DAILY [facility] Last Admin: 04/03/20 08:59 Dose: 17 gm Documented by: Vitals/I&O/Wt Last Vital Signs Temp 97.6 F 04/04/20 15:59 Pulse 64 04/04/20 15:59 Resp 17 04/04/20 15:59 BP 120/61 04/04/20 15:59 Pulse Ox 97 04/04/20 15:59 04/04/20 04/04/20 04/04/20 06:59 14:59 22:59 Intake Total 200 / 1450 530 / 530 360 / 890 Output Total 400 / 2000 650 / 650 Balance -200 / -550 530 / 530 -290 / 240 Physical Exam Narrative: EXAM NARRATIVE: GENERAL: Patient is alert, awake and oriented x3. NECK: No jugular vein distension. HEENT: No cyanosis. No icterus. No pallor. HEART: Regular S1 and S2. No murmur, rub or gallop. LUNGS: Decreased bilaterally. ABDOMEN: Abdomin distended with abdominal wall edema, diffusely tender to touch sluggish bowel sounds CENTRAL NERVOUS SYSTEM: Grossly nonfocal. EXTREMITIES: Lower extremities with 1+ edema bilaterally. Urinary Catheter Management^: Bustos: Cath Placed During This Visit: no Reason for Continuing Indwelling Catheter: Acute Urinary Retention or Obstruction Data : 04/04/20 04:15 04/04/20 04:15 Micro: Microbiology 03/29/20 15:58 Blood Culture - Final Blood NO GROWTH AFTER 5 DAYS 03/29/20 15:28 Blood Culture - Final Blood NO GROWTH AFTER 5 DAYS A&P Assessment and plan (1) Systolic heart failure: Continues to diurese. Continue current regimen. I will increase carvedilol to 6.25 mg twice a day. Status: Acute Qualifiers: Heart failure chronicity: chronic Qualified Code(s): I50.22 - Chronic systolic (congestive) heart failure (2) CKD (chronic kidney disease): Continues to improve. Continue to watch Status: Acute Qualifiers: Chronic kidney disease stage: stage 3 (moderate) Qualified Code(s): N18.3 - Chronic kidney disease, stage 3 (moderate) (3) ASHD (arteriosclerotic heart disease): Stable. Continue to monitor Status: Acute (4) Incarcerated right inguinal hernia: As per surgery Status: Acute Attestations Medical Necessity Statement*: Require continuation hospitalization for above defined care. Coding Level of Care Code Established Pt Acute Baseball Coach for [facility] Fwd Patient Type Established History Expanded Problem Focused Exam Expanded Problem Focused Medical Decision Making Moderate Complexity Diagnoses Systolic heart failure I50.22 Heart failure chronicity: chronic CKD (chronic kidney disease) N18.3 Chronic kidney disease stage: stage 3 (moderate) ASHD (arteriosclerotic heart disease) I25.10 Incarcerated right inguinal hernia K40.30
[2020-04-04 20:13] LABS: Glucose Point of Care 187 mg/dL (70-110)
[2020-04-04] MEDS: levalbuterol 0.63 mg/3 mL Neb INHALATION (20:24)
--- NOTE | 2020-04-04 23:04 | PC.NURSE ---
Patient resting in bed with eyes closed at this time; patient did groan and report pain earlier in the shift and PRN pain medication was given per orders; pain level decreased and patient is sleeping.
[2020-04-05] VITALS (12 sets, daily range): BP systolic 112–128; BP diastolic 60–71; PULSE 67–89; RESP 12–19; TEMP 36.6–36.9; O2SAT 94–98
--- NOTE | 2020-04-05 00:21 | PC.NURSE ---
Patient resting quietly at this time, nurse went and obtained v/s and checked on patient, patient stated he was pretty comfortable at this time. Continue care.
[2020-04-05] MEDS: HYDROcodone-acetaminophen 5-325 mg Tablet 1 TAB PO ×4 (02:18→19:20)
--- NOTE | 2020-04-05 02:30 | PC.NURSE ---
Patient awake during hourly rounds and reported pain again, PRN pain medication administered per orders. Patient repositioned and lotion applied to back to help with being uncomfortable. Continue care.
[2020-04-05 05:02] LABS: Alanine Aminotransferase < 5 U/L (0-41); Albumin Level 2.9 g/dL (3.5-5.2); Alkaline Phosphatase 250 IU/L (40-130); Anion Gap 19.5 (5-19); Aspartate Amino Transferase 25 U/L (0-40); Blood Urea Nitrogen 75 mg/dL (8-23); Carbon Dioxide 22 mmol/L (22-29); Chloride 94 mmol/L (98-107); Globulin 3.9 g/dL (1.3-4.6); Glucose 141 mg/dL (65-115); Magnesium 2.4 mg/dL (1.7-2.3); Osmolality Calculated 274 mOsm/kg (285-295); Phosphorus 4.1 mg/dL (2.5-4.5); Potassium 4.5 mmol/L (3.5-5.1); Sodium 131 mmol/L (136-145); Total Bilirubin 0.5 mg/dL (0.15-1.2); Total Protein 6.8 g/dL (6.6-8.7)
[2020-04-05 06:01] LABS: Glucose Point of Care 162 mg/dL (70-110)
--- NOTE | 2020-04-05 06:13 | PC.NURSE ---
Patient resting quietly in bed with eyes closed, uneventful shift. Continue care
--- NOTE | 2020-04-05 06:42 | PM.PN ---
Subjective Subjective: Interval history: feels better. less sob, dec edema- but still severe legs and scrotal edema Medications: Reviewed: Yes Medication Review Details: Current Medications Hydrocodone Bitart/Acetaminophen ([place] 5-325 Mg) 1 tab PO Q4H PRN PRN Reason: MODERATE PAIN Last Admin: 04/05/20 02:18 Dose: 1 tab Documented by: Aspirin (Aspirin Ec) 81 mg PO DAILY [facility] Last Admin: 04/04/20 09:08 Dose: 81 mg Documented by: Atorvastatin Calcium (Lipitor) 40 mg PO DAILY [facility] Last Admin: 04/04/20 09:07 Dose: 40 mg Documented by: Carvedilol (Coreg) 6.25 mg PO BID [facility] Dextrose (D50w) 25 ml IVP ONCE PRN; Protocol PRN Reason: hypoglycemia protocol Dextrose (D50w) 50 ml IVP PRN PRN; Protocol PRN Reason: hypoglycemia protocol Famotidine (Pepcid Tab) 20 mg PO BID [facility] Last Admin: 04/04/20 17:45 Dose: 20 mg Documented by: Furosemide (Lasix) 40 mg IVP DAILY [facility] Last Admin: 04/04/20 09:07 Dose: 40 mg Documented by: Glucagon (Glucagen) 1 mg IM ONCE PRN; Protocol PRN Reason: Adult Acute Hypoglycemia Prot. Heparin Sodium (Beef Lung) (Heparin) 5,000 unit SUBCUT Q12H [facility] Last Admin: 04/04/20 20:16 Dose: 5,000 unit Documented by: Dextrose (D5w) 500 mls @ 100 mls/hr IV ONCE PRN; Protocol PRN Reason: Adult Acute Hypoglycemia Prot Ceftriaxone Sodium 1,000 mg/ (Sodium Chloride) 50 mls @ 100 mls/hr IV Q24H [facility]; Protocol Last Infusion: 04/04/20 09:40 Dose: Infused Documented by: Insulin Aspart (Novolog) 0 unit SUBCUT TIDWM [facility]; Protocol Last Admin: 04/04/20 17:45 Dose: 6 unit Documented by: Insulin Detemir (Levemir) 5 unit SUBCUT BEDTIME [facility] Last Admin: 04/04/20 20:17 Dose: 5 unit Documented by: Levalbuterol HCl (Xopenex) 0.63 mg INHALATION Q4H.RESPIRATORY [facility] Last Admin: 04/04/20 20:24 Dose: 0.63 mg Documented by: Nystatin (Nystatin Powder) 1 applic TOPICAL BID [facility] Last Admin: 04/04/20 17:49 Dose: 1 applic Documented by: Ondansetron HCl (Zofran) 4 mg IVP Q4H PRN PRN Reason: NAUSEA AND VOMITING Polyethylene Glycol (Miralax) 17 gm PO DAILY [facility] Last Admin: 04/04/20 09:08 Dose: 17 gm Documented by: Vitals/I&O/Wt Last Vital Signs Temp 98.4 F 04/05/20 03:42 Pulse 76 04/05/20 03:42 Resp 17 04/05/20 03:42 BP 112/61 04/05/20 03:42 Pulse Ox 95 04/05/20 03:42 04/04/20 04/04/20 04/05/20 14:59 22:59 06:59 Intake Total 530 / 530 420 / 950 50 / 1000 Output Total 650 / 650 525 / 1175 Balance 530 / 530 -230 / 300 -475 / -175 Physical Exam Narrative: EXAM NARRATIVE: vss nard obese heent- nc/at, eomi neck supple lung- dull bases b/l heart reg, no rub abd soft, distended, +BS, surgical sites clean scrotal edema ext 2+ edema neuro- a,a,o x 2+ Urinary Catheter Management^: Bustos: Cath Placed During This Visit: no Reason for Continuing Indwelling Catheter: Acute Urinary Retention or Obstruction Data : 04/04/20 04:15 04/05/20 03:15 Micro: Microbiology 04/01/20 09:33 Urine Culture - Final Urine Catheterized Kiki albicans A&P Additional A&P Information 79 yr old man s/p b/l inguinal hernia repair 1. chronic systolic chf- ef 25% -clinically improved after lasix. -cont lasix- 40 mgm iv inc to bid -monitor bnp 2/ MICHAEL- likely IRON and ATN while on aldactone. pt given fluids and does not appear dry -cr improving -good uop -monitor uop, chemistries -k okay -phos normal 3. hyponatremia from MICHAEL and chf- free water restrict -monitor na -may need tolvaptan if na worsens 4. uti- ceftriaxone 5. left scrotal edema/ swelling per medicine- improving 6. DM management 7. anemia- hgb down to 9 Attestations Medical Necessity Statement*: chf, michael, hyponatremia Time Spent in Patient Care: 16 - 35 minutes Coding Level of Care Code Acute Icebox Worker for Chaitanya Parsons
--- NOTE | 2020-04-05 07:00 | P.PN_ITS ---
Subjective Subjective: Interval history: No new developments per the patient. He had a bowel movement yesterday. He is eating well. Vitals/I&O/Wt Last Vital Signs Temp 98.4 F 04/05/20 03:42 Pulse 76 04/05/20 03:42 Resp 17 04/05/20 03:42 BP 112/61 04/05/20 03:42 Pulse Ox 95 04/05/20 03:42 04/04/20 04/05/20 04/05/20 22:59 06:59 14:59 Intake Total 420 / 1000 50 / 1000 Output Total 650 / 1175 525 / 1175 Balance -230 / -175 -475 / -175 Physical Exam Narrative: EXAM NARRATIVE: The lower abdominal transverse incision continues to heal well. His Bustos catheter is still in; I guess the decision was made to keep it yesterday due to his scrotal edema/penile inversion. Urinary Catheter Management^: Bustos: Cath Placed During This Visit: no Reason for Continuing Indwelling Catheter: Acute Urinary Retention or Obstruction Data : 04/04/20 04:15 04/05/20 03:15 Micro: Microbiology 04/01/20 09:33 Urine Culture - Final Urine Catheterized Kiki albicans A&P Assessment and plan (1) Acute renal failure superimposed on chronic kidney disease: Improving. From my standpoint, the patient will be ready for discharge whenever it is okay with the hospitalist team. Status: Acute (2) Bilateral inguinal hernia: Status post reduction and repair of bilateral incarcerated inguinal hernias on 03/29/2020. Status: Acute (3) Bowel obstruction: Status post reduction and repair of incarcerated right inguinal hernia on 03/29/2020. Bowel function seems to have returned. Continue MiraLAX daily. Status: Acute Attestations Medical Necessity Statement*: Patient requires continued inpatient care for acute kidney injury and hyponatremia. Coding Level of Care Code Acute Bottom Turning Lathe Turner for [facility] Fwd Diagnoses Acute renal failure superimposed on chronic kidney disease N17.9; N18.9 Bilateral inguinal hernia K40.20 Bowel obstruction K56.609
[2020-04-05] MEDS: levalbuterol 0.63 mg/3 mL Neb INHALATION ×3 (07:38→23:44)
[2020-04-05] MEDS: atorvastatin 40 mg Tablet PO (08:22)
[2020-04-05] MEDS: famotidine 20 mg Tablet PO ×2 (08:22→18:35)
[2020-04-05] MEDS: aspirin 81 mg EC Tablet PO (08:22)
[2020-04-05] MEDS: carvedilol 6.25 mg Tablet PO ×2 (08:22→18:35)
[2020-04-05] MEDS: FUROsemide 10 mg/mL SDV 10mL 40 MG IVP ×2 (08:56→18:36)
[2020-04-05] MEDS: heparin 5,000 unit/mL INJ 1 mL 5000 UNIT SUBCUT ×2 (09:01→20:26)
[2020-04-05] MEDS: cefTRIAXone 1,000 MG in sodium chloride 0.9% (plus) 50 ML 100 MG IV (09:02)
[2020-04-05 11:24] LABS: Glucose Point of Care 205 mg/dL (70-110)
--- NOTE | 2020-04-05 12:21 | PC.SOCIAL ---
IMM completed on 04/05/2020 @ [id number]. Copy of rights given to pt.
[2020-04-05 16:29] LABS: Glucose Point of Care 160 mg/dL (70-110)
--- NOTE | 2020-04-05 17:45 | PM.PN ---
Subjective Subjective: Interval history: Patient has not diuresed well he is short of breath and fatigue. Abdominal wall swelling is more today Medications: Reviewed: Yes Medication Review Details: Current Medications Hydrocodone Bitart/Acetaminophen ([place] 5-325 Mg) 1 tab PO Q4H PRN PRN Reason: MODERATE PAIN Last Admin: 04/05/20 02:18 Dose: 1 tab Documented by: Aspirin (Aspirin Ec) 81 mg PO DAILY [facility] Last Admin: 04/04/20 09:08 Dose: 81 mg Documented by: Atorvastatin Calcium (Lipitor) 40 mg PO DAILY [facility] Last Admin: 04/04/20 09:07 Dose: 40 mg Documented by: Carvedilol (Coreg) 6.25 mg PO BID [facility] Dextrose (D50w) 25 ml IVP ONCE PRN; Protocol PRN Reason: hypoglycemia protocol Dextrose (D50w) 50 ml IVP PRN PRN; Protocol PRN Reason: hypoglycemia protocol Famotidine (Pepcid Tab) 20 mg PO BID [facility] Last Admin: 04/04/20 17:45 Dose: 20 mg Documented by: Furosemide (Lasix) 40 mg IVP DAILY [facility] Last Admin: 04/04/20 09:07 Dose: 40 mg Documented by: Glucagon (Glucagen) 1 mg IM ONCE PRN; Protocol PRN Reason: Adult Acute Hypoglycemia Prot. Heparin Sodium (Beef Lung) (Heparin) 5,000 unit SUBCUT Q12H [facility] Last Admin: 04/04/20 20:16 Dose: 5,000 unit Documented by: Dextrose (D5w) 500 mls @ 100 mls/hr IV ONCE PRN; Protocol PRN Reason: Adult Acute Hypoglycemia Prot Ceftriaxone Sodium 1,000 mg/ (Sodium Chloride) 50 mls @ 100 mls/hr IV Q24H [facility]; Protocol Last Infusion: 04/04/20 09:40 Dose: Infused Documented by: Insulin Aspart (Novolog) 0 unit SUBCUT TIDWM [facility]; Protocol Last Admin: 04/04/20 17:45 Dose: 6 unit Documented by: Insulin Detemir (Levemir) 5 unit SUBCUT BEDTIME [facility] Last Admin: 04/04/20 20:17 Dose: 5 unit Documented by: Levalbuterol HCl (Xopenex) 0.63 mg INHALATION Q4H.RESPIRATORY [facility] Last Admin: 04/04/20 20:24 Dose: 0.63 mg Documented by: Nystatin (Nystatin Powder) 1 applic TOPICAL BID [facility] Last Admin: 04/04/20 17:49 Dose: 1 applic Documented by: Ondansetron HCl (Zofran) 4 mg IVP Q4H PRN PRN Reason: NAUSEA AND VOMITING Polyethylene Glycol (Miralax) 17 gm PO DAILY [facility] Last Admin: 04/04/20 09:08 Dose: 17 gm Documented by: Vitals/I&O/Wt Last Vital Signs Temp 98.0 F 04/05/20 15:02 Pulse 89 04/05/20 15:07 Resp 18 04/05/20 15:07 BP 121/71 04/05/20 15:02 Pulse Ox 96 04/05/20 15:07 04/05/20 04/05/20 04/05/20 06:59 14:59 22:59 Intake Total 50 / 1000 360 / 360 120 / 480 Output Total 525 / 1175 700 / 700 Balance -475 / -175 360 / 360 -580 / -220 Physical Exam Narrative: EXAM NARRATIVE: GENERAL: Patient is alert, awake and oriented x3. NECK: No jugular vein distension. HEENT: No cyanosis. No icterus. No pallor. HEART: Regular S1 and S2. No murmur, rub or gallop. LUNGS: Decreased bilaterally. ABDOMEN: Abdomin distended with abdominal wall edema, diffusely tender to touch sluggish bowel sounds CENTRAL NERVOUS SYSTEM: Grossly nonfocal. EXTREMITIES: Lower extremities with 1+ edema bilaterally. Urinary Catheter Management^: Bustos: Cath Placed During This Visit: no Reason for Continuing Indwelling Catheter: Acute Urinary Retention or Obstruction Data : 04/04/20 04:15 04/05/20 03:15 Micro: Microbiology 04/01/20 09:33 Urine Culture - Final Urine Catheterized Kiki albicans A&P Assessment and plan (1) Systolic heart failure: Somehow patient diuretics were reduced to once a day 40 mg I will increase again into 40 mg twice a day has not diuresed well and appear to be retaining volume. Status: Acute Qualifiers: Heart failure chronicity: chronic Qualified Code(s): I50.22 - Chronic systolic (congestive) heart failure (2) CKD (chronic kidney disease): Continue current regimen. Continue to monitor Status: Acute Qualifiers: Chronic kidney disease stage: stage 3 (moderate) Qualified Code(s): N18.3 - Chronic kidney disease, stage 3 (moderate) (3) ASHD (arteriosclerotic heart disease): Stable. Continue to monitor Status: Acute (4) Incarcerated right inguinal hernia: As per surgery Status: Acute Attestations Medical Necessity Statement*: Patient require continuation hospitalization for above defined care. Coding Level of Care Code Established Pt Acute Distribution Sales Manager for Chaitanya Fwd Patient Type Established History Expanded Problem Focused Exam Expanded Problem Focused Medical Decision Making Moderate Complexity Diagnoses Systolic heart failure I50.22 Heart failure chronicity: chronic CKD (chronic kidney disease) N18.3 Chronic kidney disease stage: stage 3 (moderate) ASHD (arteriosclerotic heart disease) I25.10 Incarcerated right inguinal hernia K40.30
[2020-04-05 20:22] LABS: Glucose Point of Care 218 mg/dL (70-110)
--- NOTE | 2020-04-05 21:19 | PC.NURSE ---
patient resting in room with eyes closed at this time, patient did report pain at shift change and PRN pain medication was given per orders, patient's pain level decreased and now patient is resting soundly with no s/s of pain or voices of concern. Continue care.
--- NOTE | 2020-04-05 22:19 | P.PN_ITS ---
Subjective Subjective: Interval history: Scrotal swelling continues to look improved. Kidney function is improving. Lower extremity edema still persisting. Diuresis increased today per cardiology recommendations. 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: no focal neuro deficits Urinary Catheter Management^: Bustos: Cath Placed During This Visit: no Reason for Continuing Indwelling Catheter: Acute Urinary Retention or Obstructio n Data : 04/06/20 04:16 04/06/20 04:16 Micro: Microbiology 04/01/20 09:33 Urine Culture - Final Urine Catheterized Kiki albicans A&P Assessment and plan (1) Hyponatremia: -Likely secondary to MICHAEL, hypovolemic, some component of cardiorenal - appreciate nephrology recommendations Status: Acute (2) Acute renal failure superimposed on chronic kidney disease: -Patient's creatinine continues to improve to 2.4 -Renal ultrasound does not show any hydronephrosis, large left renal cyst, does show enlarged prostate, ultrasound of the pelvis does not show any free fluid -Bedside ultrasound showed that the bladder was collapsed, Bustos catheter was seen inside bladder -Hold all nephrotoxic agents -Monitor ins and outs closely -Monitor serum sodium, potassium -Appreciate nephrology recommendations Status: Acute (3) Incarcerated right inguinal hernia: -Status post bilateral reduction and repair of bilateral incarcerated inguinal hernias by Dr. Edmonds, -Currently on a clear liquid diet -Heparin for DVT prophylaxis -Protonix for GI prophylaxis Status: Acute (4) Type 2 diabetes mellitus: -Hemoglobin A1c 8.9 -Currently on an insulin sliding scale -Levemir 10 units nightly Status: Acute (5) Hyperlipidemia: -Check lipid panel Status: Acute Qualifiers: Hyperlipidemia type: other hyperlipidemia Qualified Code(s): E78.49 - Other hyperlipidemia (6) Systolic heart failure: -Has a history of CHF, systolic, no history of echocardiogram recently, but did have a cardiac catheterization in December 2013 with a EF of 30%, currently BNP is 6647 -Has a history of CAD, cardiac cath on December 2013, LAD normal, left circumflex normal, RCA chronic occlusion ostial, ramus normal, left MCA single stenosis 60%, currently medically managed LV systolic function is severely reduced with EF of 25 to 30%. Severe global hypokinesis need noted. Diastolic function is abnormal. Elevated RA pressure. Moderate pulmonary hypertension. At least moderate tricuspid regurgitation. Appreciate cardiology recommendations -Continue aspirin, statin -Continue Coreg 3.125 twice daily -Encourage ambulation, daily weights, - currently on RA -Diuresis recommendations per cardiology and nephrology. Status: Acute Qualifiers: Heart failure chronicity: chronic Qualified Code(s): I50.22 - Chronic systolic (congestive) heart failure (7) ASHD (arteriosclerotic heart disease): Status: Acute (8) HTN (hypertension): Status: Acute (9) CKD (chronic kidney disease): -Baseline creatinine is roughly 1.4, currently at baseline Status: Acute Qualifiers: Chronic kidney disease stage: stage 3 (moderate) Qualified Code(s): N18.3 - Chronic kidney disease, stage 3 (moderate) (10) Scrotal edema: Appears to be a part of generaalized anasarca. He has some decreased vascular flow involving the left testicle, probably chronic. Appreciate gen/surg assessment. Significantly improving with diuresis and scotal supports and wraps. Status: Acute Attestations Medical Necessity Statement*: Ongoing IV diuresis, monitoring sodium, optimization of respiratory status Coding Level of Care Code Acute Social Service Director for [facility] Fw Diagnoses Hyponatremia E87.1 Acute renal failure superimposed on chronic kidney disease N17.9; N18.9 Incarcerated right inguinal hernia K40.30 Type 2 diabetes mellitus E11.9 Hyperlipidemia E78.49 Hyperlipidemia type: other hyperlipidemia Systolic heart failure I50.22 Heart failure chronicity: chronic ASHD (arteriosclerotic heart disease) I25.10 HTN (hypertension) I10 CKD (chronic kidney disease) N18.3 Chronic kidney disease stage: stage 3 (moderate) Scrotal edema N50.89
[2020-04-06] VITALS (17 sets, daily range): BP systolic 102–130; BP diastolic 64–84; PULSE 66–85; RESP 12–22; TEMP 36.6–36.9; O2SAT 92–99
[2020-04-06] MEDS: HYDROcodone-acetaminophen 5-325 mg Tablet 1 TAB PO (00:11)
--- NOTE | 2020-04-06 00:41 | PC.NURSE ---
Patient resting in high fowlers with eyes shut, patient did report pain and PRN pain medication was administered per orders. Patient's meng intact and draining. Call light within reach. Continue care.
--- NOTE | 2020-04-06 03:08 | PC.NURSE ---
Patient is trying to climb out of bed from severe pain related to swollen scrotum and post hernia repair, hydrocodone isn't effective in pain control for patient. Alerted doctor Nico and received order for Dilaudid 2 mg PO every 4 hours PRN for pain. Continue care.
[2020-04-06] MEDS: levalbuterol 0.63 mg/3 mL Neb INHALATION ×3 (03:40→11:43)
--- NOTE | 2020-04-06 03:56 | PC.NURSE ---
Patient resting with eyes closed and soundly after receiving new pain medication orders. Continue care.
[2020-04-06 05:48] LABS: Alanine Aminotransferase 7 U/L (0-41); Albumin Level 2.9 g/dL (3.5-5.2); Alkaline Phosphatase 254 IU/L (40-130); Anion Gap 13.4 (5-19); Aspartate Amino Transferase 30 U/L (0-40); Blood Urea Nitrogen 69 mg/dL (8-23); Calcium 8.9 mg/dL (8.5-10.5); Carbon Dioxide 26 mmol/L (22-29); Chloride 94 mmol/L (98-107); Glucose 126 mg/dL (65-115); Magnesium 2.3 mg/dL (1.7-2.3); Osmolality Calculated 290 mOsm/kg (285-295); Phosphorus 4.1 mg/dL (2.5-4.5); Potassium 4.4 mmol/L (3.5-5.1); Sodium 129 mmol/L (136-145); Total Bilirubin 0.5 mg/dL (0.15-1.2); Total Protein 6.9 g/dL (6.6-8.7)
[2020-04-06 05:58] LABS: Glucose Point of Care 139 mg/dL (70-110)
--- NOTE | 2020-04-06 07:08 | PM.PN ---
Subjective Subjective: Interval history: The patient feels well. He is anxious to go home. The Bustos catheter is still in place; apparently Occupational Therapy is coming by today to reevaluate his scrotal compression. I like to get his catheter out as soon as possible to make sure he will do well without it prior to discharge. Vitals/I&O/Wt Last Vital Signs Temp 98.4 F 04/06/20 03:39 Pulse 70 04/06/20 03:50 Resp 15 04/06/20 03:40 BP 121/77 04/06/20 03:39 Pulse Ox 97 04/06/20 03:40 04/05/20 04/06/20 04/06/20 22:59 06:59 14:59 Intake Total 180 / 600 60 / 600 Output Total 700 / 1425 725 / 1425 Balance -520 / -825 -665 / -825 Physical Exam Narrative: EXAM NARRATIVE: The incision appears to be healing well. He did have somewhat of a protrude burn area with a little fluid underneath the skin at the corner of the incision on the right side. A sterile swab was used to break the small film and a significant amount of serosanguineous fluid drained from the wound. I will have the nurses redressed this. Urinary Catheter Management^: Bustos: Cath Placed During This Visit: no Reason for Continuing Indwelling Catheter: Acute Urinary Retention or Obstruction Data : 04/04/20 04:15 04/06/20 04:16 A&P Assessment and plan (1) Acute renal failure superimposed on chronic kidney disease: Improving. From my standpoint, the patient will be ready for discharge whenever it is okay with the hospitalist team. Status: Acute (2) Bilateral inguinal hernia: Status post reduction and repair of bilateral incarcerated inguinal hernias on 03/29/2020. Status: Acute (3) Bowel obstruction: Status post reduction and repair of incarcerated right inguinal hernia on 03/29/2020. Bowel function seems to have returned. Continue MiraLAX daily. Status: Acute Attestations Medical Necessity Statement*: Patient requires continued inpatient monitoring for treatment of acute kidney injury and heart failure. Coding Level of Care Code Acute Interior Design Instructor for [facility] Diagnoses Acute renal failure superimposed on chronic kidney disease N17.9; N18.9 Bilateral inguinal hernia K40.20 Bowel obstruction K56.609
[2020-04-06] MEDS: atorvastatin 40 mg Tablet PO (08:48)
[2020-04-06] MEDS: famotidine 20 mg Tablet PO ×2 (08:48→17:57)
[2020-04-06] MEDS: carvedilol 6.25 mg Tablet PO ×2 (08:48→17:56)
[2020-04-06] MEDS: aspirin 81 mg EC Tablet PO (08:48)
[2020-04-06] MEDS: FUROsemide 10 mg/mL SDV 10mL 40 MG IVP (08:48)
[2020-04-06] MEDS: heparin 5,000 unit/mL INJ 1 mL 5000 UNIT SUBCUT (08:50)
--- NOTE | 2020-04-06 08:58 | PC.NURSE ---
Attempted o give morning dose of furosemide and IV site in left ACF is occluded and the IV site had to be discontinued.
[2020-04-06 10:24] LABS: Basophils # 0.1 10^3/uL (0.0-0.1); Basophils % 0.6 %; Eosinophils # 0.6 10^3/uL (0.0-0.8); Eosinophils % 7.4 %; Hematocrit 27.3 % (42.0-52.0); Hemoglobin 8.5 g/dL (11.7-16.6); Lymphocytes # 1.4 10^3/uL (0.8-4.8); Lymphocytes % 17.3 %; Mean Corpuscular HGB Conc 31.1 g/dL (30.0-36.0); Mean Corpuscular Hemoglobin 27.8 pg (28.0-34.0); Mean Corpuscular Volume 89.2 fL (80-94); Mean Platelet Volume 11.7 fL (7.4-10.4); Monocytes # 0.9 10^3/uL (0.2-0.9); Monocytes % 10.8 %; Neutrophils # 4.95 10^3/uL (1.8-7.7); Neutrophils % 62.9 %; Nucleated Red Blood Cells % 0 %; Platelet Count 280 10^3/cmm (130-400); Red Blood Count 3.06 10^6/uL (4.1-5.3); Red Cell Distribution Width 16.3 % (12.1-15.1); White Blood Count 7.9 10^3/uL (4.0-10.0)
--- NOTE | 2020-04-06 10:26 | P.PN_ITS ---
Subjective Subjective: Interval history: Patient is sitting in chair. His belly still sounds with wall edema Medications: Reviewed: Yes Medication Review Details: Current Medications Hydrocodone Bitart/Acetaminophen ([place] 5-325 Mg) 1 tab PO Q4H PRN PRN Reason: MODERATE PAIN Last Admin: 04/05/20 02:18 Dose: 1 tab Documented by: Aspirin (Aspirin Ec) 81 mg PO DAILY [facility] Last Admin: 04/04/20 09:08 Dose: 81 mg Documented by: Atorvastatin Calcium (Lipitor) 40 mg PO DAILY [facility] Last Admin: 04/04/20 09:07 Dose: 40 mg Documented by: Carvedilol (Coreg) 6.25 mg PO BID [facility] Dextrose (D50w) 25 ml IVP ONCE PRN; Protocol PRN Reason: hypoglycemia protocol Dextrose (D50w) 50 ml IVP PRN PRN; Protocol PRN Reason: hypoglycemia protocol Famotidine (Pepcid Tab) 20 mg PO BID [facility] Last Admin: 04/04/20 17:45 Dose: 20 mg Documented by: Furosemide (Lasix) 40 mg IVP DAILY [facility] Last Admin: 04/04/20 09:07 Dose: 40 mg Documented by: Glucagon (Glucagen) 1 mg IM ONCE PRN; Protocol PRN Reason: Adult Acute Hypoglycemia Prot. Heparin Sodium (Beef Lung) (Heparin) 5,000 unit SUBCUT Q12H [facility] Last Admin: 04/04/20 20:16 Dose: 5,000 unit Documented by: Dextrose (D5w) 500 mls @ 100 mls/hr IV ONCE PRN; Protocol PRN Reason: Adult Acute Hypoglycemia Prot Ceftriaxone Sodium 1,000 mg/ (Sodium Chloride) 50 mls @ 100 mls/hr IV Q24H [facility]; Protocol Last Infusion: 04/04/20 09:40 Dose: Infused Documented by: Insulin Aspart (Novolog) 0 unit SUBCUT TIDWM [facility]; Protocol Last Admin: 04/04/20 17:45 Dose: 6 unit Documented by: Insulin Detemir (Levemir) 5 unit SUBCUT BEDTIME [facility] Last Admin: 04/04/20 20:17 Dose: 5 unit Documented by: Levalbuterol HCl (Xopenex) 0.63 mg INHALATION Q4H.RESPIRATORY [facility] Last Admin: 04/04/20 20:24 Dose: 0.63 mg Documented by: Nystatin (Nystatin Powder) 1 applic TOPICAL BID [facility] Last Admin: 04/04/20 17:49 Dose: 1 applic Documented by: Ondansetron HCl (Zofran) 4 mg IVP Q4H PRN PRN Reason: NAUSEA AND VOMITING Polyethylene Glycol (Miralax) 17 gm PO DAILY [facility] Last Admin: 04/04/20 09:08 Dose: 17 gm Documented by: Vitals/I&O/Wt Last Vital Signs Temp 97.8 F 04/06/20 07:19 Pulse 76 04/06/20 07:37 Resp 17 04/06/20 07:36 BP 130/79 04/06/20 07:19 Pulse Ox 95 04/06/20 07:36 04/05/20 04/06/20 04/06/20 22:59 06:59 14:59 Intake Total 180 / 540 60 / 600 60 / 60 Output Total 700 / 700 725 / 1425 Balance -520 / -160 -665 / -825 60 / 60 Physical Exam Narrative: EXAM NARRATIVE: GENERAL: Patient is alert, awake and oriented x3. NECK: No jugular vein distension. HEENT: No cyanosis. No icterus. No pallor. HEART: Regular S1 and S2. No murmur, rub or gallop. LUNGS: Decreased bilaterally. ABDOMEN: Abdomin distended with abdominal wall edema, diffusely tender to touch sluggish bowel sounds CENTRAL NERVOUS SYSTEM: Grossly nonfocal. EXTREMITIES: Lower extremities with 1+ edema bilaterally. Urinary Catheter Management^: Bustos: Cath Placed During This Visit: no Reason for Continuing Indwelling Catheter: Acute Urinary Retention or Obstruction Data : 04/06/20 04:16 04/06/20 04:16 A&P Assessment and plan (1) Systolic heart failure: IV went bad his Lasix dose was not given this morning he still is volume overloaded as evident by abdominal wall edema. We will continue IV 40 mg twice daily for next 24 hours after that we will assess for p.o. Status: Acute Qualifiers: Heart failure chronicity: chronic Qualified Code(s): I50.22 - Chronic systolic (congestive) heart failure (2) CKD (chronic kidney disease): As per nephrology colleagues Status: Acute Qualifiers: Chronic kidney disease stage: stage 3 (moderate) Qualified Code(s): N18.3 - Chronic kidney disease, stage 3 (moderate) (3) ASHD (arteriosclerotic heart disease): Stable. Continue current Status: Acute (4) Incarcerated right inguinal hernia: As per surgery Status: Acute Attestations Medical Necessity Statement*: Require continuation of hospitalization for above defined care. Coding Level of Care Code Established Pt Acute Resident Director for [facility] Patient Type Established History Expanded Problem Focused Exam Expanded Problem Focused Medical Decision Making Moderate Complexity Diagnoses Systolic heart failure I50.22 Heart failure chronicity: chronic CKD (chronic kidney disease) N18.3 Chronic kidney disease stage: stage 3 (moderate) ASHD (arteriosclerotic heart disease) I25.10 Incarcerated right inguinal hernia K40.30
[2020-04-06] MEDS: nystatin powder 15 gm Btl 1 APPLIC TOPICAL (10:32)
--- NOTE | 2020-04-06 10:50 | PC.NURSE ---
Dr. Barfield spoke with Dr. Trejo to discuss furosemide dosages and diuresis goals for next [address] Barfield gave me a verbal order to give one dose of IV lasix now. Also to leave meng overnight.
[2020-04-06 11:15] LABS: Glucose Point of Care 280 mg/dL (70-110)
[2020-04-06] MEDS: FUROsemide 10 mg/mL SDV 4mL 40 MG IVP ×2 (11:22→17:57)
--- NOTE | 2020-04-06 13:51 | PM.PN ---
Subjective Subjective: Interval history: no complaints. Nurses report massive scrotal edema and inverted penis . They are concerned meng will not be able to be reinserted if necessary Medications: Reviewed: Yes Vitals/I&O/Wt Last Vital Signs Temp 98.1 F 04/06/20 12:00 Pulse 66 04/06/20 12:00 Resp 15 04/06/20 12:00 BP 102/64 04/06/20 12:00 Pulse Ox 92 04/06/20 12:00 04/05/20 04/06/20 04/06/20 22:59 06:59 14:59 Intake Total 180 / 540 60 / 600 300 / 300 Output Total 700 / 700 725 / 1425 Balance -520 / -160 -665 / -825 300 / 300 Physical Exam Const: COMMON NORMALS: no acute distress GENERAL APPEARANCE: cooperative ORIENTATION/CONSCIOUSNESS: Yes awake Resp: COMMON NORMALS: clear to auscultation bilaterally AUSCULTATION: clear to auscultation bilaterally Cardio: COMMON NORMALS: regular rate and regular rhythm RATE: regular rate RHYTHM: regular rhythm Extremity: GENERAL: Yes edema Urinary Catheter Management^: Meng: Cath Placed During This Visit: no Reason for Continuing Indwelling Catheter: Acute Urinary Retention or Obstruction Data : 04/06/20 04:16 04/06/20 04:16 Other Labs: calcium 8.9, phos 4.1, Mg 2.3 A&P Additional A&P Information 1. MICHAEL/CKD - stable 2. Hypervolemic hyponatremia - asymptomatic - continue IV furosemide, fluid restrict 3. CHF 4. UTI - urine growing hugh - add fluconazole 5. Anemia - check iron studies Attestations Medical Necessity Statement*: per primary service Time Spent in Patient Care: 16 - 35 minutes Coding Level of Care Code Acute Senior Accounting Manager for [facility]
--- NOTE | 2020-04-06 15:28 | PC.CHAP ---
Pastoral Care Encounter/Spiritual Assessment Type of Contact [] Declined traffic i manager visit [] Patient/Family/Request visit [] Outpatient visit [] Follow-up visit [] Physician referral [] Code/Alert [x] Routine visit [] Staff referral [] Actively dying [] Patient sleeping [] Family support [] [] Out of room [] Palliative care [] [x] Receiving care in room [] Pre-surgical visit [] Trauma [] Long length of stay [] ICU visit [] Other: Relational/Emotional Strength [x] Patient feels connected with others/family/visitors/staff [] Distress [] Loneliness/isolation [] Abandonment Spirituality of Patient [x] Person of Shelli [] Attends Gnosticist of their Shelli [x] Believes in Prayer [] Reads Bible or Orthodox materials [] There are Spiritual issues to be addressed Bottling Line Attendant Interventions [x] Prayer [x] Active listening [x] Non-anxious presence [x] Spiritual/emotional support [] Crisis/trauma care [x] Spiritual counseling [] Bereavement support [] Provided bereavement packet [] Provided Bible/devotional materials [] Provided toy/stuffed animal, coloring book to patient or family member [] Provided Communion [] Anointing/[place] [] Salvation [x] Completed spiritual assessment [] Other: Impact on Illness or Injury [] Angry [] Fearful [] Anxious [] Often cries [] Exhaustion [] Unable to work [] Unable to attend jehovah's witness [] Unable to walk/stand [] Unable to read [] Unable to drive [] Unable to eat/drink [] Unable to sleep [] Unable to be with family [] Patient intubated [] Other: Summary Had tests this morrning was in lots of pain has good attitude wants to go home soon Time spent with patient 10 mins
[2020-04-06 15:58] LABS: Ferritin 240 ng/mL (30-400); Iron 31 ug/dL (59-158); Percent Saturation 18.4 % (20-50); Total Iron Binding Capacity 168 mcg/dl; Unsaturated Iron Binding 137 ug/dL (112-347)
--- NOTE | 2020-04-06 16:33 | PM.PN ---
Subjective Subjective: Interval history: Somewhat improved exercise capacity today. Patient was able to ambulate from bed to the door. Had some bleeding at 1 of the incision site over the right abdomen today, evaluated by surgery. Hemoglobin at 8.5, slight drift, continue to monitor Medications: Reviewed: Yes Vitals/I&O/Wt Last Vital Signs Temp 98.1 F 04/06/20 12:00 Pulse 66 04/06/20 12:00 Resp 15 04/06/20 12:00 BP 102/64 04/06/20 12:00 Pulse Ox 92 04/06/20 12:00 04/06/20 04/06/20 04/06/20 06:59 14:59 22:59 Intake Total 60 / 600 300 / 300 Output Total 725 / 1425 Balance -665 / -825 300 / 300 Physical Exam Narrative: EXAM NARRATIVE: GEN: Awake, alert and oriented, no acute distress CVS: S1S2 N RS: CTA B/L Abd: Soft, nt/nd , bs+ CRITICAL CARE REGISTERED NURSE: no focal neuro deficits Urinary Catheter Management^: Bustos: Cath Placed During This Visit: no Reason for Continuing Indwelling Catheter: Acute Urinary Retention or Obstruction Data : 04/06/20 04:16 04/06/20 04:16 A&P Assessment and plan (1) Hyponatremia: -Likely secondary to MICHAEL, hypovolemic, some component of cardiorenal - appreciate nephrology recommendations Status: Acute (2) Acute renal failure superimposed on chronic kidney disease: -Patient's creatinine continues to improve to 2.4 -Renal ultrasound does not show any hydronephrosis, large left renal cyst, does show enlarged prostate, ultrasound of the pelvis does not show any free fluid -Bedside ultrasound showed that the bladder was collapsed, Bustos catheter was seen inside bladder -Hold all nephrotoxic agents -Monitor ins and outs closely -Monitor serum sodium, potassium -Appreciate nephrology recommendations Status: Acute (3) Incarcerated right inguinal hernia: -Status post bilateral reduction and repair of bilateral incarcerated inguinal hernias by Dr. Edmonds, -Currently on a clear liquid diet -Heparin for DVT prophylaxis -Protonix for GI prophylaxis Status: Acute (4) Type 2 diabetes mellitus: -Hemoglobin A1c 8.9 -Currently on an insulin sliding scale -Levemir 10 units nightly Status: Acute (5) Hyperlipidemia: -Check lipid panel Status: Acute Qualifiers: Hyperlipidemia type: other hyperlipidemia Qualified Code(s): E78.49 - Other hyperlipidemia (6) Systolic heart failure: -Has a history of CHF, systolic, no history of echocardiogram recently, but did have a cardiac catheterization in December 2013 with a EF of 30%, currently BNP is 6647 -Has a history of CAD, cardiac cath on December 2013, LAD normal, left circumflex normal, RCA chronic occlusion ostial, ramus normal, left MCA single stenosis 60%, currently medically managed LV systolic function is severely reduced with EF of 25 to 30%. Severe global hypokinesis need noted. Diastolic function is abnormal. Elevated RA pressure. Moderate pulmonary hypertension. At least moderate tricuspid regurgitation. Appreciate cardiology recommendations -Continue aspirin, statin -Continue Coreg 3.125 twice daily -Encourage ambulation, daily weights, - currently on RA -Diuresis recommendations per cardiology and nephrology. Status: Acute Qualifiers: Heart failure chronicity: chronic Qualified Code(s): I50.22 - Chronic systolic (congestive) heart failure (7) ASHD (arteriosclerotic heart disease): Status: Acute (8) HTN (hypertension): Status: Acute (9) CKD (chronic kidney disease): -Baseline creatinine is roughly 1.4, currently at baseline Status: Acute Qualifiers: Chronic kidney disease stage: stage 3 (moderate) Qualified Code(s): N18.3 - Chronic kidney disease, stage 3 (moderate) (10) Scrotal edema: Appears to be a part of generaalized anasarca. He has some decreased vascular flow involving the left testicle, probably chronic. Appreciate gen/surg assessment. Significantly improving with diuresis and scotal supports and wraps. Status: Acute (11) Anemia: Start Venofer 5 days and multivitamin. Hold off on blood transfusion for now. Slight hemoglobin drop noted. Status: Acute Attestations Medical Necessity Statement*: Ongoing need for IV diuresis, sodium Coding Level of Care Code Acute Account Executive Trainee for [facility] Diagnoses Hyponatremia E87.1 Acute renal failure superimposed on chronic kidney disease N17.9; N18.9 Incarcerated right inguinal hernia K40.30 Type 2 diabetes mellitus E11.9 Hyperlipidemia E78.49 Hyperlipidemia type: other hyperlipidemia Systolic heart failure I50.22 Heart failure chronicity: chronic ASHD (arteriosclerotic heart disease) I25.10 HTN (hypertension) I10 CKD (chronic kidney disease) N18.3 Chronic kidney disease stage: stage 3 (moderate) Scrotal edema N50.89 Anemia D64.9
[2020-04-06 16:37] LABS: Glucose Point of Care 97 mg/dL (70-110)
[2020-04-06] MEDS: iron sucrose 200 MG in sodium chloride 0.9% (100 ml) 100 ML 220 MG IV (17:58)
--- NOTE | 2020-04-06 18:06 | P.PN_ITS ---
Subjective Subjective: Interval history: Patient is sitting in the chair however appears to be volume overloaded. Denies in general any complaint except shortness of breath with tight belly due to wall edema, scrotal edema also present Medications: Reviewed: Yes Medication Review Details: Current Medications Hydrocodone Bitart/Acetaminophen ([place] 5-325 Mg) 1 tab PO Q4H PRN PRN Reason: MODERATE PAIN Last Admin: 04/05/20 02:18 Dose: 1 tab Documented by: Aspirin (Aspirin Ec) 81 mg PO DAILY [facility] Last Admin: 04/04/20 09:08 Dose: 81 mg Documented by: Atorvastatin Calcium (Lipitor) 40 mg PO DAILY [facility] Last Admin: 04/04/20 09:07 Dose: 40 mg Documented by: Carvedilol (Coreg) 6.25 mg PO BID [facility] Dextrose (D50w) 25 ml IVP ONCE PRN; Protocol PRN Reason: hypoglycemia protocol Dextrose (D50w) 50 ml IVP PRN PRN; Protocol PRN Reason: hypoglycemia protocol Famotidine (Pepcid Tab) 20 mg PO BID [facility] Last Admin: 04/04/20 17:45 Dose: 20 mg Documented by: Furosemide (Lasix) 40 mg IVP DAILY [facility] Last Admin: 04/04/20 09:07 Dose: 40 mg Documented by: Glucagon (Glucagen) 1 mg IM ONCE PRN; Protocol PRN Reason: Adult Acute Hypoglycemia Prot. Heparin Sodium (Beef Lung) (Heparin) 5,000 unit SUBCUT Q12H [facility] Last Admin: 04/04/20 20:16 Dose: 5,000 unit Documented by: Dextrose (D5w) 500 mls @ 100 mls/hr IV ONCE PRN; Protocol PRN Reason: Adult Acute Hypoglycemia Prot Ceftriaxone Sodium 1,000 mg/ (Sodium Chloride) 50 mls @ 100 mls/hr IV Q24H [facility]; Protocol Last Infusion: 04/04/20 09:40 Dose: Infused Documented by: Insulin Aspart (Novolog) 0 unit SUBCUT TIDWM [facility]; Protocol Last Admin: 04/04/20 17:45 Dose: 6 unit Documented by: Insulin Detemir (Levemir) 5 unit SUBCUT BEDTIME [facility] Last Admin: 04/04/20 20:17 Dose: 5 unit Documented by: Levalbuterol HCl (Xopenex) 0.63 mg INHALATION Q4H.RESPIRATORY [facility] Last Admin: 04/04/20 20:24 Dose: 0.63 mg Documented by: Nystatin (Nystatin Powder) 1 applic TOPICAL BID [facility] Last Admin: 04/04/20 17:49 Dose: 1 applic Documented by: Ondansetron HCl (Zofran) 4 mg IVP Q4H PRN PRN Reason: NAUSEA AND VOMITING Polyethylene Glycol (Miralax) 17 gm PO DAILY [facility] Last Admin: 04/04/20 09:08 Dose: 17 gm Documented by: Vitals/I&O/Wt Last Vital Signs Temp 98.0 F 04/06/20 16:00 Pulse 70 04/06/20 16:00 Resp 22 H 04/06/20 17:57 BP 108/67 04/06/20 16:00 Pulse Ox 95 04/06/20 17:57 04/06/20 04/06/20 04/06/20 06:59 14:59 22:59 Intake Total 60 / 600 300 / 300 Output Total 725 / 1425 500 / 500 Balance -665 / -825 300 / 300 -500 / -200 Physical Exam Narrative: EXAM NARRATIVE: GENERAL: Patient is alert, awake and oriented x3. NECK: No jugular vein distension. HEENT: No cyanosis. No icterus. No pallor. HEART: Regular S1 and S2. No murmur, rub or gallop. LUNGS: Decreased bilaterally. ABDOMEN: Abdomin distended with abdominal wall edema, diffusely tender to touch sluggish bowel sounds CENTRAL NERVOUS SYSTEM: Grossly nonfocal. EXTREMITIES: Lower extremities with 1+ edema bilaterally. Scrotal edema Urinary Catheter Management^: Bustos: Cath Placed During This Visit: no Reason for Continuing Indwelling Catheter: Acute Urinary Retention or Obstruct ion Data : 04/06/20 04:16 04/06/20 04:16 A&P Assessment and plan (1) Systolic heart failure: Continue IV diuresis with Lasix 40 mg twice daily. Continue to monitor. Will reassess in the morning for p.o. conversion Status: Acute Qualifiers: Heart failure chronicity: chronic Qualified Code(s): I50.22 - Chronic systolic (congestive) heart failure (2) CKD (chronic kidney disease): As per nephrology colleagues Status: Acute Qualifiers: Chronic kidney disease stage: stage 3 (moderate) Qualified Code(s): N18.3 - Chronic kidney disease, stage 3 (moderate) (3) ASHD (arteriosclerotic heart disease): Stable. Continue current Status: Acute (4) Incarcerated right inguinal hernia: As per surgery Status: Acute Attestations Medical Necessity Statement*: Patient require continuation hospitalization for above defined care. Coding Level of Care Code Established Pt Acute Emergency Medical Technician for [facility] Fwd Patient Type Established History Expanded Problem Focused Exam Expanded Problem Focused Medical Decision Making Moderate Complexity Diagnoses Systolic heart failure I50.22 Heart failure chronicity: chronic CKD (chronic kidney disease) N18.3 Chronic kidney disease stage: stage 3 (moderate) ASHD (arteriosclerotic heart disease) I25.10 Incarcerated right inguinal hernia K40.30
[2020-04-06 18:38] LABS: Iron 31 ug/dL (59-158)
--- NOTE | 2020-04-06 19:16 | PC.NURSE ---
Dr. Edmonds notified of hard lump on RLQ right at incision side. Day shift nurse states that lump is larger than before. Ordered to continue to monitor.
[2020-04-06 20:34] LABS: Glucose Point of Care 119 mg/dL (70-110)
--- NOTE | 2020-04-06 20:42 | PC.NURSE ---
Dr. Walsh came to see the lump on RLQ of abdomen at incision site. Ordered to hold dose of Heparin that is due at this time and monitor for growth/size of lump.
--- NOTE | 2020-04-06 22:28 | PC.NURSE ---
Patient is currently resting in bed awake. Patient only complains of pain to touch and movement. Patient states that when he is laying still it does not hurt. Patient educated to ask for PRN pain medication when needed and verbalized understanding. Lump to RLQ incision area does not appear to have changed in size at this time. Will monitor.
[2020-04-07] VITALS (7 sets, daily range): BP systolic 112–129; BP diastolic 63–76; PULSE 70–75; RESP 12–21; TEMP 36.4–37; O2SAT 94–98
[2020-04-07 05:22] LABS: Alanine Aminotransferase 7 U/L (0-41); Albumin Level 2.9 g/dL (3.5-5.2); Alkaline Phosphatase 252 IU/L (40-130); Anion Gap 13.4 (5-19); Aspartate Amino Transferase 28 U/L (0-40); Blood Urea Nitrogen 65 mg/dL (8-23); Calcium 8.8 mg/dL (8.5-10.5); Carbon Dioxide 26 mmol/L (22-29); Chloride 96 mmol/L (98-107); Globulin 3.6 g/dL (1.3-4.6); Glucose 133 mg/dL (65-115); Magnesium 2.4 mg/dL (1.7-2.3); Osmolality Calculated 293 mOsm/kg (285-295); Potassium 4.4 mmol/L (3.5-5.1); Sodium 131 mmol/L (136-145); Total Bilirubin 0.5 mg/dL (0.15-1.2); Total Protein 6.5 g/dL (6.6-8.7)
[2020-04-07 06:41] LABS: Glucose Point of Care 138 mg/dL (70-110)
--- NOTE | 2020-04-07 08:54 | P.PN_ITS ---
Subjective Subjective: Interval history: The patient denies discomfort. He ate breakfast this morning. He continues to pass flatus. Vitals/I&O/Wt Last Vital Signs Temp 97.8 F 04/07/20 07:19 Pulse 73 04/07/20 07:19 Resp 12 04/07/20 07:19 BP 125/70 04/07/20 07:19 Pulse Ox 97 04/07/20 07:19 04/06/20 04/07/20 04/07/20 22:59 06:59 14:59 Intake Total 200 / 500 240 / 240 Output Total 500 / 1200 700 / 1200 Balance -500 / -700 -500 / -700 240 / 240 Physical Exam Narrative: EXAM NARRATIVE: Bowel sounds are present. The incision appears to be well approximated again without any ongoing drainage following some drainage of subcutaneous serosanguineous fluid yesterday morning. I had been contacted by nursing last night, as they felt that the right inguinal region has become more swollen again. He does have some induration from his surgery but I do not see anything new here. Urinary Catheter Management^: Bustos: Cath Placed During This Visit: no Reason for Continuing Indwelling Catheter: Accurate Measurement of Urinary Output in Critically Ill Patients Data : 04/06/20 04:16 04/07/20 04:00 A&P Assessment and plan (1) Acute renal failure superimposed on chronic kidney disease: Improved. Patient being converted to oral diuretics at some point soon. From my standpoint, the patient will be ready for discharge whenever it is okay with the hospitalist team. Status: Acute (2) Bilateral inguinal hernia: Status post reduction and repair of bilateral incarcerated inguinal hernias on 03/29/2020. Status: Acute (3) Bowel obstruction: Status post reduction and repair of incarcerated right inguinal hernia on 03/29/2020. Bowel function seems to have returned. Continue MiraLAX daily. Status: Acute Attestations Medical Necessity Statement*: Patient requires continued inpatient care for heart failure, adjustments regarding fluid status. Coding Level of Care Code Acute Compliance Field Technician for [facility] Diagnoses Acute renal failure superimposed on chronic kidney disease N17.9; N18.9 Bilateral inguinal hernia K40.20 Bowel obstruction K56.609
[2020-04-07] MEDS: heparin 5,000 unit/mL INJ 1 mL 5000 UNIT SUBCUT ×2 (09:54→21:58)
[2020-04-07] MEDS: polyethylene glycol 3350 Pkt 17 gm PO (09:54)
[2020-04-07] MEDS: FUROsemide 10 mg/mL SDV 4mL 40 MG IVP ×2 (09:55→17:04)
[2020-04-07] MEDS: fluconazole 100 mg Tablet PO (09:55)
[2020-04-07] MEDS: atorvastatin 40 mg Tablet PO (09:55)
[2020-04-07] MEDS: aspirin 81 mg EC Tablet PO (09:55)
[2020-04-07] MEDS: multivitamin therapeutic Tablet 1 TAB PO (09:55)
[2020-04-07] MEDS: famotidine 20 mg Tablet PO ×2 (09:55→17:04)
[2020-04-07] MEDS: carvedilol 6.25 mg Tablet PO ×2 (09:55→17:04)
[2020-04-07] MEDS: nystatin powder 15 gm Btl 1 APPLIC TOPICAL (10:21)
[2020-04-07 10:59] LABS: Glucose Point of Care 309 mg/dL (70-110)
--- NOTE | 2020-04-07 13:43 | PM.PN ---
Subjective Subjective: Interval history: Feeling better today had around 800- output in last 24 hours. Creatinine has also improved Medications: Reviewed: Yes Medication Review Details: Current Medications Hydrocodone Bitart/Acetaminophen ([place] 5-325 Mg) 1 tab PO Q4H PRN PRN Reason: MODERATE PAIN Last Admin: 04/05/20 02:18 Dose: 1 tab Documented by: Aspirin (Aspirin Ec) 81 mg PO DAILY [facility] Last Admin: 04/04/20 09:08 Dose: 81 mg Documented by: Atorvastatin Calcium (Lipitor) 40 mg PO DAILY [facility] Last Admin: 04/04/20 09:07 Dose: 40 mg Documented by: Carvedilol (Coreg) 6.25 mg PO BID [facility] Dextrose (D50w) 25 ml IVP ONCE PRN; Protocol PRN Reason: hypoglycemia protocol Dextrose (D50w) 50 ml IVP PRN PRN; Protocol PRN Reason: hypoglycemia protocol Famotidine (Pepcid Tab) 20 mg PO BID [facility] Last Admin: 04/04/20 17:45 Dose: 20 mg Documented by: Furosemide (Lasix) 40 mg IVP DAILY [facility] Last Admin: 04/04/20 09:07 Dose: 40 mg Documented by: Glucagon (Glucagen) 1 mg IM ONCE PRN; Protocol PRN Reason: Adult Acute Hypoglycemia Prot. Heparin Sodium (Beef Lung) (Heparin) 5,000 unit SUBCUT Q12H [facility] Last Admin: 04/04/20 20:16 Dose: 5,000 unit Documented by: Dextrose (D5w) 500 mls @ 100 mls/hr IV ONCE PRN; Protocol PRN Reason: Adult Acute Hypoglycemia Prot Ceftriaxone Sodium 1,000 mg/ (Sodium Chloride) 50 mls @ 100 mls/hr IV Q24H NICHOLAS; Protocol Last Infusion: 04/04/20 09:40 Dose: Infused Documented by: Insulin Aspart (Novolog) 0 unit SUBCUT TIDWM [facility]; Protocol Last Admin: 04/04/20 17:45 Dose: 6 unit Documented by: Insulin Detemir (Levemir) 5 unit SUBCUT BEDTIME [facility] Last Admin: 04/04/20 20:17 Dose: 5 unit Documented by: Levalbuterol HCl (Xopenex) 0.63 mg INHALATION Q4H.RESPIRATORY [facility]ICHOLAS Last Admin: 04/04/20 20:24 Dose: 0.63 mg Documented by: Nystatin (Nystatin Powder) 1 applic TOPICAL BID [facility] Last Admin: 04/04/20 17:49 Dose: 1 applic Documented by: Ondansetron HCl (Zofran) 4 mg IVP Q4H PRN PRN Reason: NAUSEA AND VOMITING Polyethylene Glycol (Miralax) 17 gm PO DAILY [facility] Last Admin: 04/04/20 09:08 Dose: 17 gm Documented by: Vitals/I&O/Wt Last Vital Signs Temp 98.3 F 04/07/20 11:24 Pulse 74 04/07/20 11:24 Resp 21 H 04/07/20 11:24 BP 127/70 04/07/20 11:24 Pulse Ox 98 04/07/20 11:24 04/06/20 04/07/20 04/07/20 22:59 06:59 14:59 Intake Total 200 / 500 480 / 480 Output Total 500 / 500 700 / 1200 Balance -500 / -200 -500 / -700 480 / 480 Physical Exam Narrative: EXAM NARRATIVE: GENERAL: Patient is alert, awake and oriented x3. NECK: No jugular vein distension. HEENT: No cyanosis. No icterus. No pallor. HEART: Regular S1 and S2. No murmur, rub or gallop. LUNGS: Decreased bilaterally. ABDOMEN: Abdomin distended with abdominal wall edema which is improved, diffusely tender to touch sluggish bowel sounds CENTRAL NERVOUS SYSTEM: Grossly nonfocal. EXTREMITIES: Lower extremities without edema bilaterally. Scrotal edema Urinary Catheter Management^: Bustos: Cath Placed During This Visit: no Reason for Continuing Indwelling Catheter: Accurate Measurement of Urinary Output in Critically Ill Patients Data : 04/06/20 04:16 04/07/20 04:00 A&P Assessment and plan (1) Systolic heart failure: Getting better continue IV Lasix 40 twice daily we will switch him to 40 p.o. twice daily 8 AM and 1400 from tomorrow with most likely discharge after adding KSENIA inhibitor once creatinine below 1.7 Status: Acute Qualifiers: Heart failure chronicity: chronic Qualified Code(s): I50.22 - Chronic systolic (congestive) heart failure (2) CKD (chronic kidney disease): As per nephrology colleagues Status: Acute Qualifiers: Chronic kidney disease stage: stage 3 (moderate) Qualified Code(s): N18.3 - Chronic kidney disease, stage 3 (moderate) (3) ASHD (arteriosclerotic heart disease): Stable. Continue current Status: Acute (4) Incarcerated right inguinal hernia: As per surgery Status: Acute Attestations Medical Necessity Statement*: Require continuation of hospitalization for above defined care Coding Level of Care Code Established Pt Acute Retail Furniture Sales for Chg Fwd Patient Type Established History Expanded Problem Focused Exam Expanded Problem Focused Medical Decision Making Moderate Complexity Diagnoses Systolic heart failure I50.22 Heart failure chronicity: chronic CKD (chronic kidney disease) N18.3 Chronic kidney disease stage: stage 3 (moderate) ASHD (arteriosclerotic heart disease) I25.10 Incarcerated right inguinal hernia K40.30
--- NOTE | 2020-04-07 13:54 | PC.OT ---
OT NOTE: OT TREATMENT ATTEMPTED AGAIN IN P.M. PATIENT STATES NOW THAT HE DOES NOT KNOW WHEN HE WILL BE DISCHARGED. HE STATES THAT HE ALREADY WASHED THIS MORNING. OFFERED UE EXERCISES FOR ENDURANCE BUILDING AND HE DECLINES STATING THAT HE JUST WANTS TO REST.
--- NOTE | 2020-04-07 14:11 | P.PN_ITS ---
Subjective Subjective: Interval history: anxious for discharge Medications: Reviewed: Yes Vitals/I&O/Wt Last Vital Signs Temp 98.3 F 04/07/20 11:24 Pulse 74 04/07/20 11:24 Resp 21 H 04/07/20 11:24 BP 127/70 04/07/20 11:24 Pulse Ox 98 04/07/20 11:24 04/06/20 04/07/20 04/07/20 22:59 06:59 14:59 Intake Total 200 / 500 480 / 480 Output Total 500 / 500 700 / 1200 Balance -500 / -200 -500 / -700 480 / 480 Physical Exam Const: COMMON NORMALS: no acute distress GENERAL APPEARANCE: cooperative ORIENTATION/CONSCIOUSNESS: Yes awake Resp: COMMON NORMALS: normal respiratory effort Cardio: COMMON NORMALS: regular rate and regular rhythm RATE: regular rate RHYTHM: regular rhythm Extremity: GENERAL: Yes edema (large scrotal edema, 1+ leg edema, + sacral edema) Urinary Catheter Management^: Meng: Cath Placed During This Visit: no Reason for Continuing Indwelling Catheter: Accurate Measurement of Urinary Output in Critically Ill Patients Data : 04/06/20 04:16 04/07/20 04:00 A&P Additional A&P Information 1. MICHAEL/CKD - stable 2. Hypervolemic hyponatremia - asymptomatic - continue IV furosemide, fluid restrict 3. CHF management per cardiology 4. UTI - fungal, on fluconazole, requires meng at this time due to scrotal/p enile edema 5. Anemia - iron deficient, receiving IV iron Attestations Medical Necessity Statement*: requires continued IV furosedmide Coding Level of Care Code Acute Canal Superintendent for Chaitanya Parsons
[2020-04-07 15:31] LABS: Glucose Point of Care 159 mg/dL (70-110)
[2020-04-07] MEDS: iron sucrose 200 MG in sodium chloride 0.9% (100 ml) 100 ML 220 MG IV (17:03)
[2020-04-07 20:41] LABS: Glucose Point of Care 157 mg/dL (70-110)
[2020-04-08] VITALS (57 sets, daily range): BP systolic 121–136; BP diastolic 69–80; PULSE 68–86; RESP 10–25; TEMP 36.6–36.8; O2SAT 92–98
[2020-04-08 06:46] LABS: Glucose Point of Care 124 mg/dL (70-110)
--- NOTE | 2020-04-08 07:18 | P.PN_ITS ---
Subjective Subjective: Interval history: no new complainst today, eager to return home Medications: Reviewed: Yes Medication Review Details: Current Medications Hydrocodone Bitart/Acetaminophen ([place] 5-325 Mg) 1 tab PO Q4H PRN PRN Reason: MODERATE PAIN Last Admin: 04/05/20 02:18 Dose: 1 tab Documented by: Aspirin (Aspirin Ec) 81 mg PO DAILY [facility] Last Admin: 04/04/20 09:08 Dose: 81 mg Documented by: Atorvastatin Calcium (Lipitor) 40 mg PO DAILY [facility] Last Admin: 04/04/20 09:07 Dose: 40 mg Documented by: Carvedilol (Coreg) 6.25 mg PO BID [facility] Dextrose (D50w) 25 ml IVP ONCE PRN; Protocol PRN Reason: hypoglycemia protocol Dextrose (D50w) 50 ml IVP PRN PRN; Protocol PRN Reason: hypoglycemia protocol Famotidine (Pepcid Tab) 20 mg PO BID [facility] Last Admin: 04/04/20 17:45 Dose: 20 mg Documented by: Furosemide (Lasix) 40 mg IVP DAILY [facility] Last Admin: 04/04/20 09:07 Dose: 40 mg Documented by: Glucagon (Glucagen) 1 mg IM ONCE PRN; Protocol PRN Reason: Adult Acute Hypoglycemia Prot. Heparin Sodium (Beef Lung) (Heparin) 5,000 unit SUBCUT Q12H [facility] Last Admin: 04/04/20 20:16 Dose: 5,000 unit Documented by: Dextrose (D5w) 500 mls @ 100 mls/hr IV ONCE PRN; Protocol PRN Reason: Adult Acute Hypoglycemia Prot Ceftriaxone Sodium 1,000 mg/ (Sodium Chloride) 50 mls @ 100 mls/hr IV Q24H [facility]; Protocol Last Infusion: 04/04/20 09:40 Dose: Infused Documented by: Insulin Aspart (Novolog) 0 unit SUBCUT TIDWM [facility]; Protocol Last Admin: 04/04/20 17:45 Dose: 6 unit Documented by: Insulin Detemir (Levemir) 5 unit SUBCUT BEDTIME [facility] Last Admin: 04/04/20 20:17 Dose: 5 unit Documented by: Levalbuterol HCl (Xopenex) 0.63 mg INHALATION Q4H.RESPIRATORY [facility] Last Admin: 04/04/20 20:24 Dose: 0.63 mg Documented by: Nystatin (Nystatin Powder) 1 applic TOPICAL BID [facility] Last Admin: 04/04/20 17:49 Dose: 1 applic Documented by: Ondansetron HCl (Zofran) 4 mg IVP Q4H PRN PRN Reason: NAUSEA AND VOMITING Polyethylene Glycol (Miralax) 17 gm PO DAILY [facility] Last Admin: 04/04/20 09:08 Dose: 17 gm Documented by: Vitals/I&O/Wt Last Vital Signs Temp 98.3 F 04/08/20 04:00 Pulse 71 04/08/20 04:00 Resp 22 H 04/08/20 04:00 BP 121/71 04/08/20 04:00 Pulse Ox 96 04/08/20 04:00 04/07/20 04/08/20 04/08/20 22:59 06:59 14:59 Intake Total 360 / 840 100 / 940 Output Total 800 / 800 700 / 1500 Balance -440 / 40 -600 / -560 Physical Exam Narrative: EXAM NARRATIVE: GEN: Awake, alert and oriented, no acute distress CVS: S1S2 N RS: CTA B/L Abd: Soft, nt/nd , bs+ 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: no focal neuro deficits Urinary Catheter Management^: Gates: Cath Placed During This Visit: no Reason for Continuing Indwelling Catheter: Accurate Measurement of Urinary Output in Critically Ill Patients Data : 04/08/20 09:26 04/08/20 09:26 A&P Assessment and plan (1) Hyponatremia: -Likely secondary to MICHAEL, hypovolemic, some component of cardiorenal - appreciate nephrology recommendations Status: Acute (2) Acute renal failure superimposed on chronic kidney disease: -Patient's creatinine continues to improve to 2.4 -Renal ultrasound does not show any hydronephrosis, large left renal cyst, does show enlarged prostate, ultrasound of the pelvis does not show any free fluid -Bedside ultrasound showed that the bladder was collapsed, Gates catheter was seen inside bladder -Hold all nephrotoxic agents -Monitor ins and outs closely -Monitor serum sodium, potassium -Appreciate nephrology recommendations Status: Acute (3) Incarcerated right inguinal hernia: -Status post bilateral reduction and repair of bilateral incarcerated inguinal hernias by Dr. Edmonds, -Currently on a clear liquid diet -Heparin for DVT prophylaxis -Protonix for GI prophylaxis Status: Acute (4) Type 2 diabetes mellitus: -Hemoglobin A1c 8.9 -Currently on an insulin sliding scale -Levemir 10 units nightly Status: Acute (5) Hyperlipidemia: -Check lipid panel Status: Acute Qualifiers: Hyperlipidemia type: other hyperlipidemia Qualified Code(s): E78.49 - Other hyperlipidemia (6) Systolic heart failure: -Has a history of CHF, systolic, no history of echocardiogram recently, but did have a cardiac catheterization in December 2013 with a EF of 30%, currently BNP is 6647 -Has a history of CAD, cardiac cath on December 2013, LAD normal, left circumflex normal, RCA chronic occlusion ostial, ramus normal, left MCA single stenosis 60%, currently medically managed LV systolic function is severely reduced with EF of 25 to 30%. Severe global hypokinesis need noted. Diastolic function is abnormal. Elevated RA pressure. Moderate pulmonary hypertension. At least moderate tricuspid regurgitation. Appreciate cardiology recommendations -Continue aspirin, statin -Continue Coreg 3.125 twice daily -Encourage ambulation, daily weights, - currently on RA -Diuresis recommendations per cardiology and nephrology. Switch to oral d iuretics today in anticipation of upcoming discharge Status: Acute Qualifiers: Heart failure chronicity: chronic Qualified Code(s): I50.22 - Chronic systolic (congestive) heart failure (7) ASHD (arteriosclerotic heart disease): Status: Acute (8) HTN (hypertension): Status: Acute (9) CKD (chronic kidney disease): -Baseline creatinine is roughly 1.4, currently at baseline Status: Acute Qualifiers: Chronic kidney disease stage: stage 3 (moderate) Qualified Code(s): N18.3 - Chronic kidney disease, stage 3 (moderate) (10) Scrotal edema: Appears to be a part of generaalized anasarca. He has some decreased vascular flow involving the left testicle, probably chronic. Appreciate gen/surg assessment. Significantly improving with diuresis and scotal supports and wraps. Remove Gates catehter consider discontinuing fluconazole on discharge as candiduria likely to represnt colonization from Gates which has now been removed. Status: Acute (11) Anemia: Start Venofer 5 days and multivitamin. Hold off on blood transfusion for now. Slight hemoglobin drop noted. Status: Acute Attestations Medical Necessity Statement*: switch to oral diuresis in anticiptaion of upcoming discharge, per admitting team Coding Level of Care Code Acute Mild Disabilities Teacher for Chaitanya Parsons Diagnoses Hyponatremia E87.1 Acute renal failure superimposed on chronic kidney disease N17.9; N18.9 Incarcerated right inguinal hernia K40.30 Type 2 diabetes mellitus E11.9 Hyperlipidemia E78.49 Hyperlipidemia type: other hyperlipidemia Systolic heart failure I50.22 Heart failure chronicity: chronic ASHD (arteriosclerotic heart disease) I25.10 HTN (hypertension) I10 CKD (chronic kidney disease) N18.3 Chronic kidney disease stage: stage 3 (moderate) Scrotal edema N50.89 Anemia D64.9
[2020-04-08] MEDS: polyethylene glycol 3350 Pkt 17 gm PO (08:40)
[2020-04-08] MEDS: heparin 5,000 unit/mL INJ 1 mL 5000 UNIT SUBCUT ×2 (08:40→21:34)
[2020-04-08] MEDS: multivitamin therapeutic Tablet 1 TAB PO (08:41)
[2020-04-08] MEDS: carvedilol 6.25 mg Tablet PO ×2 (08:41→17:19)
[2020-04-08] MEDS: fluconazole 100 mg Tablet PO (08:41)
[2020-04-08] MEDS: famotidine 20 mg Tablet PO ×2 (08:41→17:19)
[2020-04-08] MEDS: aspirin 81 mg EC Tablet PO (08:41)
[2020-04-08] MEDS: atorvastatin 40 mg Tablet PO (08:41)
[2020-04-08] MEDS: FUROsemide 40 mg Tablet PO ×2 (08:44→17:18)
[2020-04-08 09:52] LABS: Basophils % 0.3 %; Eosinophils # 0.6 10^3/uL (0.0-0.8); Eosinophils % 6.3 %; Hematocrit 26.4 % (42.0-52.0); Hemoglobin 8.3 g/dL (11.7-16.6); Lymphocytes # 1.4 10^3/uL (0.8-4.8); Lymphocytes % 14.7 %; Mean Corpuscular HGB Conc 31.4 g/dL (30.0-36.0); Mean Corpuscular Hemoglobin 27.9 pg (28.0-34.0); Mean Corpuscular Volume 88.9 fL (80-94); Mean Platelet Volume 11.2 fL (7.4-10.4); Monocytes # 0.7 10^3/uL (0.2-0.9); Monocytes % 7.7 %; Neutrophils # 6.61 10^3/uL (1.8-7.7); Nucleated Red Blood Cells % 0 %; Platelet Count 303 10^3/cmm (130-400); Red Blood Count 2.97 10^6/uL (4.1-5.3); Red Cell Distribution Width 16.3 % (12.1-15.1); White Blood Count 9.5 10^3/uL (4.0-10.0)
[2020-04-08 10:00] LABS: Alanine Aminotransferase 9 U/L (0-41); Alkaline Phosphatase 239 IU/L (40-130); Anion Gap 15.2 (5-19); Aspartate Amino Transferase 27 U/L (0-40); Blood Urea Nitrogen 65 mg/dL (8-23); Calcium 8.7 mg/dL (8.5-10.5); Carbon Dioxide 25 mmol/L (22-29); Chloride 93 mmol/L (98-107); Globulin 3.9 g/dL (1.3-4.6); Glucose 213 mg/dL (65-115); Magnesium 2.2 mg/dL (1.7-2.3); Osmolality Calculated 293 mOsm/kg (285-295); Potassium 4.2 mmol/L (3.5-5.1); Sodium 129 mmol/L (136-145); Total Bilirubin 0.6 mg/dL (0.15-1.2); Total Protein 6.9 g/dL (6.6-8.7)
[2020-04-08 11:19] LABS: Glucose Point of Care 203 mg/dL (70-110)
--- NOTE | 2020-04-08 11:22 | PM.PN ---
Subjective Subjective: Interval history: The patient has no complaints this morning other than wanting to go home. Vitals/I&O/Wt Last Vital Signs Temp 98.0 F 04/08/20 11:15 Pulse 70 04/08/20 11:15 Resp 18 04/08/20 11:15 BP 136/69 04/08/20 11:15 Pulse Ox 92 04/08/20 09:39 04/07/20 04/08/20 04/08/20 22:59 06:59 14:59 Intake Total 360 / 940 100 / 940 120 / 120 Output Total 800 / 1500 700 / 1500 Balance -440 / -560 -600 / -560 120 / 120 Physical Exam Narrative: EXAM NARRATIVE: The incision remains well approximated. He appears to be redeveloping some fluid in the subcutaneous tissue, particularly on the right side of the inguinal region and into the scrotum. Again, this is an expected postoperative development due to all the space that was created by the herniated bowel/contents which hopefully will resolve on its own as time passes. The patient says he has no concerns about being able to urinate after the Bustos catheter is out; I think his anatomy involving the genitalia has been unchanged for some time, if not from some swelling, from the longstanding presence of the hernias. Urinary Catheter Management^: Bustos: Cath Placed During This Visit: no Reason for Continuing Indwelling Catheter: Accurate Measurement of Urinary Output in Critically Ill Patients Data : 04/08/20 09:26 04/08/20 09:26 A&P Assessment and plan (1) Acute renal failure superimposed on chronic kidney disease: Improved. Patient being converted to oral diuretics at some point soon. From my standpoint, the patient will be ready for discharge whenever it is okay with the hospitalist team and others involved. Status: Acute (2) Bilateral inguinal hernia: Status post reduction and repair of bilateral incarcerated inguinal hernias on 03/29/2020. Status: Acute (3) Bowel obstruction: Status post reduction and repair of incarcerated right inguinal hernia on 03/29/2020. Bowel function seems to have returned. Continue MiraLAX daily. Status: Acute Attestations Medical Necessity Statement*: Patient requiring continued inpatient care for intravenous diuresis. Coding Level of Care Code Acute Practice Assistant for [facility] Issa Diagnoses Acute renal failure superimposed on chronic kidney disease N17.9; N18.9 Bilateral inguinal hernia K40.20 Bowel obstruction K56.609
--- NOTE | 2020-04-08 12:11 | P.PN_ITS ---
Subjective Subjective: Interval history: Patient has diuresed well. He is feeling well, does not complain of any chest pain, shortness of breath or palpitations. His IV Lasix have been switched to p.o. He wants to go home today Vitals/I&O/Wt Last Vital Signs Temp 98.0 F 04/08/20 12:00 Pulse 70 04/08/20 12:00 Resp 18 04/08/20 12:00 BP 136/69 04/08/20 12:00 Pulse Ox 92 04/08/20 09:39 04/07/20 04/08/20 04/08/20 22:59 06:59 14:59 Intake Total 360 / 840 100 / 940 360 / 360 Output Total 800 / 800 700 / 1500 Balance -440 / 40 -600 / -560 360 / 360 Physical Exam Narrative: EXAM NARRATIVE: GENERAL: Patient is alert, awake and oriented x3. [] NECK: No jugular vein distension. [] HEENT: No cyanosis. No icterus. No pallor. [] HEART: Regular S1 and S2. No murmur, rub or gallop. [] LUNGS: Clear to auscultate bilaterally. [] ABDOMEN: Soft, nontender and nondistended. Positive bowel sounds. No guarding, rebound or tenderness. [] CENTRAL NERVOUS SYSTEM: Grossly nonfocal. [] EXTREMITIES: Lower extremities with 1+ edema bilaterally. Pulses palpable in the lower extremities, both dorsalis pedis and posterior tibial. [] Urinary Catheter Management^: Bustos: Reason for Continuing Indwelling Catheter: Accurate Measurement of Urinary Output in Critically Ill Patients Data : 04/08/20 09:26 04/08/20 09:26 A&P Assessment and plan (1) Systolic heart failure: Patient is close to euvolemic. His creatinine continues to improve and is 1.7 today. Lasix has been switched to p.o. Will recommend 1 more day of hospital stay and initiation of KSENIA inhibitor's tomorrow if creatinine continues to decrease. Status: Acute Qualifiers: Heart failure chronicity: chronic Qualified Code(s): I50.22 - Chronic systolic (congestive) heart failure (2) CKD (chronic kidney disease): As per nephrology colleagues. Creatinine has been improving. Status: Acute Qualifiers: Chronic kidney disease stage: stage 3 (moderate) Qualified Code(s): N18.3 - Chronic kidney disease, stage 3 (moderate) (3) ASHD (arteriosclerotic heart disease): Stable. Continue current Status: Acute (4) Incarcerated right inguinal hernia: As per surgery Status: Acute Attestations Medical Necessity Statement*: Care expected to cross 2 midnights. Congestive heart failure management. Coding Level of Care Code Acute Director Of Mechanical Engineering for Chaitanya Parsons Diagnoses Systolic heart failure I50.22 Heart failure chronicity: chronic CKD (chronic kidney disease) N18.3 Chronic kidney disease stage: stage 3 (moderate) ASHD (arteriosclerotic heart disease) I25.10 Incarcerated right inguinal hernia K40.30
[2020-04-08] MEDS: nystatin powder 15 gm Btl 1 APPLIC TOPICAL ×2 (12:41→17:23)
--- NOTE | 2020-04-08 15:10 | P.PN_ITS ---
Subjective Subjective: Interval history: I am seeing him in follow up for his renal failure. No nausea,vomiting or diarrhea Medications: Reviewed: Yes Vitals/I&O/Wt Last Vital Signs Temp 98.0 F 04/08/20 12:00 Pulse 70 04/08/20 12:00 Resp 18 04/08/20 12:00 BP 136/69 04/08/20 12:00 Pulse Ox 92 04/08/20 09:39 04/08/20 04/08/20 04/08/20 06:59 14:59 22:59 Intake Total 100 / 940 360 / 360 Output Total 700 / 1500 450 / 450 Balance -600 / -560 -90 / -90 Physical Exam Const: COMMON NORMALS: no acute distress and patient oriented x3 ORIENTATION/CONSCIOUSNESS: Yes awake Resp: COMMON NORMALS: clear to auscultation bilaterally AUSCULTATION: clear to auscultation bilaterally Cardio: COMMON NORMALS: S1 normal heart sound present and S2 normal heart sound present HEART SOUNDS: S1 normal heart sound present and S2 normal heart sound present GI: AUSCULTATION: Yes normoactive bowel sounds Extremity: GENERAL: Yes edema Neuro: COMMON NORMALS: patient oriented x3 Urinary Catheter Management^: Bustos: Cath Placed During This Visit: yes, but has since been removed by the nurse Reason for Continuing Indwelling Catheter: Decision to DC Catheter Date Urinary Catheter Removed: 04/08/20 Time Urinary Catheter Discontinued: 12:48 Data : 04/08/20 09:26 04/08/20 09:26 A&P Assessment and plan (1) Acute renal failure superimposed on chronic kidney disease: Kidney function improving, Creatinine down to 1.7 Avoid new nephrotoxins and wide fluctuation in BP Status: Acute (2) Hyponatremia: Monitor sodium level closely Status: Acute (3) Anemia: Follow hb Status: Acute (4) HTN (hypertension): BP under control Status: Acute Attestations Medical Necessity Statement*: Renal failure Coding Level of Care Code Acute Secondary School Registrar for [facility] Fwd Diagnoses Acute renal failure superimposed on chronic kidney disease N17.9; N18.9 Hyponatremia E87.1 Anemia D64.9 HTN (hypertension) I10
[2020-04-08 16:17] LABS: Glucose Point of Care 200 mg/dL (70-110)
[2020-04-08] MEDS: iron sucrose 200 MG in sodium chloride 0.9% (100 ml) 100 ML 220 MG IV (17:20)
[2020-04-08 21:17] LABS: Glucose Point of Care 220 mg/dL (70-110)
[2020-04-09 04:00] VITALS: BP 142/84; PULSE 6; RESP 19; TEMP 36.6; O2SAT 96
[2020-04-09 04:50] VITALS: RESP 18
[2020-04-09 06:34] LABS: Glucose Point of Care 178 mg/dL (70-110)
[2020-04-09 07:25] VITALS: BP 132/87; PULSE 64; RESP 12; TEMP 36.7; O2SAT 96
[2020-04-09] MEDS: FUROsemide 40 mg Tablet PO (08:17)
[2020-04-09] MEDS: polyethylene glycol 3350 Pkt 17 gm PO (08:17)
[2020-04-09] MEDS: heparin 5,000 unit/mL INJ 1 mL 5000 UNIT SUBCUT (08:17)
[2020-04-09] MEDS: multivitamin therapeutic Tablet 1 TAB PO (08:18)
[2020-04-09] MEDS: fluconazole 100 mg Tablet PO (08:18)
[2020-04-09] MEDS: nystatin powder 15 gm Btl 1 APPLIC TOPICAL (08:18)
[2020-04-09] MEDS: aspirin 81 mg EC Tablet PO (08:18)
[2020-04-09] MEDS: atorvastatin 40 mg Tablet PO (08:18)
[2020-04-09] MEDS: carvedilol 6.25 mg Tablet PO (08:18)
[2020-04-09] MEDS: famotidine 20 mg Tablet PO (08:18)
--- NOTE | 2020-04-09 09:48 | P.PN_ITS ---
Subjective Subjective: Interval history: Patient is doing well. He denies any complaints of chest pain, shortness of breath or palpitations. His IV Lasix was switched to oral Lasix yesterday. His last creatinine is 1.7 Vitals/I&O/Wt Last Vital Signs Temp 98.0 F 04/09/20 07:25 Pulse 64 04/09/20 07:25 Resp 12 04/09/20 07:25 BP 132/87 04/09/20 07:25 Pulse Ox 96 04/09/20 07:25 04/08/20 04/09/20 04/09/20 22:59 06:59 14:59 Intake Total 440 / 800 150 / 950 240 / 240 Output Total 200 / 650 300 / 950 Balance 240 / 150 -150 / 0 240 / 240 Physical Exam Narrative: EXAM NARRATIVE: EXAM NARRATIVE: GENERAL: Patient is alert, awake and oriented x3. [] NECK: No jugular vein distension. [] HEENT: No cyanosis. No icterus. No pallor. [] HEART: Regular S1 and S2. No murmur, rub or gallop. [] LUNGS: Clear to auscultate bilaterally. [] ABDOMEN: Soft, nontender and nondistended. Positive bowel sounds. No guarding, rebound or tenderness. [] CENTRAL NERVOUS SYSTEM: Grossly nonfocal. [] EXTREMITIES: Lower extremities with 1+ edema bilaterally. Pulses palpable in the lower extremities, both dorsalis pedis and posterior tibial. [] Urinary Catheter Management^: Bustos: Cath Placed During This Visit: yes, but has since been removed by the nurse Reason for Continuing Indwelling Catheter: Decision to DC Catheter Date Urinary Catheter Removed: 04/08/20 Time Urinary Catheter Discontinued: 12:48 Data : 04/08/20 09:26 04/08/20 09:26 A&P Assessment and plan (1) Systolic heart failure: Patient is euvolemic. His creatinine continues to improve and is 1.7. Lasix has been switched to p.o. patient can be started on low-dose lisinopril 2.5 mg daily. He is stable to be discharged from cardiology standpoint. Status: Acute Qualifiers: Heart failure chronicity: acute on chronic Qualified Code(s): I50.23 - Acute on chronic systolic (congestive) heart failure (2) CKD (chronic kidney disease): As per nephrology colleagues. Creatinine has been improving. Status: Acute Qualifiers: Chronic kidney disease stage: stage 3 (moderate) Qualified Code(s): N18.3 - Chronic kidney disease, stage 3 (moderate) (3) ASHD (arteriosclerotic heart disease): Stable. Continue current Status: Acute (4) Incarcerated right inguinal hernia: As per surgery Status: Acute Attestations Medical Necessity Statement*: Care expected to cross 2 midnights. Patient had CHF and acute kidney injury. Coding Level of Care Code Acute Avionics Engineer for [place] Issa Diagnoses Systolic heart failure I50.23 Heart failure chronicity: acute on chronic CKD (chronic kidney disease) N18.3 Chronic kidney disease stage: stage 3 (moderate) ASHD (arteriosclerotic heart disease) I25.10 Incarcerated right inguinal hernia K40.30
--- NOTE | 2020-04-09 10:10 | PC.SOCIAL ---
IMM Updated Updated pt on Pg 2 IMM. Pt verbally understands. No questions voiced. Provided pt a copy. Signed, dated, & timed copy in chart.
--- NOTE | 2020-04-09 10:14 | PM.PN ---
Subjective Subjective: Interval history: No new complaints today, eager to be discharged home. Last creatinine improving at 1.7. Medications: Reviewed: Yes Medication Review Details: Current Medications Hydrocodone Bitart/Acetaminophen (Buras 5-325 Mg) 1 tab PO Q4H PRN PRN Reason: MODERATE PAIN Last Admin: 04/05/20 02:18 Dose: 1 tab Documented by: Aspirin (Aspirin Ec) 81 mg PO DAILY [facility] Last Admin: 04/04/20 09:08 Dose: 81 mg Documented by: Atorvastatin Calcium (Lipitor) 40 mg PO DAILY [facility] Last Admin: 04/04/20 09:07 Dose: 40 mg Documented by: Carvedilol (Coreg) 6.25 mg PO BID [facility] Dextrose (D50w) 25 ml IVP ONCE PRN; Protocol PRN Reason: hypoglycemia protocol Dextrose (D50w) 50 ml IVP PRN PRN; Protocol PRN Reason: hypoglycemia protocol Famotidine (Pepcid Tab) 20 mg PO BID [facility] Last Admin: 04/04/20 17:45 Dose: 20 mg Documented by: Furosemide (Lasix) 40 mg IVP DAILY [facility] Last Admin: 04/04/20 09:07 Dose: 40 mg Documented by: Glucagon (Glucagen) 1 mg IM ONCE PRN; Protocol PRN Reason: Adult Acute Hypoglycemia Prot. Heparin Sodium (Beef Lung) (Heparin) 5,000 unit SUBCUT Q12H [facility] Last Admin: 04/04/20 20:16 Dose: 5,000 unit Documented by: Dextrose (D5w) 500 mls @ 100 mls/hr IV ONCE PRN; Protocol PRN Reason: Adult Acute Hypoglycemia Prot Ceftriaxone Sodium 1,000 mg/ (Sodium Chloride) 50 mls @ 100 mls/hr IV Q24H [facility]; Protocol Last Infusion: 04/04/20 09:40 Dose: Infused Documented by: Insulin Aspart (Novolog) 0 unit SUBCUT TIDWM [facility]; Protocol Last Admin: 04/04/20 17:45 Dose: 6 unit Documented by: Insulin Detemir (Levemir) 5 unit SUBCUT BEDTIME [facility] Last Admin: 04/04/20 20:17 Dose: 5 unit Documented by: Levalbuterol HCl (Xopenex) 0.63 mg INHALATION Q4H.RESPIRATORY [facility] Last Admin: 04/04/20 20:24 Dose: 0.63 mg Documented by: Nystatin (Nystatin Powder) 1 applic TOPICAL BID [facility] Last Admin: 04/04/20 17:49 Dose: 1 applic Documented by: Ondansetron HCl (Zofran) 4 mg IVP Q4H PRN PRN Reason: NAUSEA AND VOMITING Polyethylene Glycol (Miralax) 17 gm PO DAILY [facility] Last Admin: 04/04/20 09:08 Dose: 17 gm Documented by: Vitals/I&O/Wt Last Vital Signs Temp 98.0 F 04/09/20 07:25 Pulse 64 04/09/20 07:25 Resp 12 04/09/20 07:25 BP 132/87 04/09/20 07:25 Pulse Ox 96 04/09/20 07:25 04/08/20 04/09/20 04/09/20 22:59 06:59 14:59 Intake Total 440 / 800 150 / 950 240 / 240 Output Total 200 / 650 300 / 950 Balance 240 / 150 -150 / 0 240 / 240 Physical Exam Narrative: EXAM NARRATIVE: GEN: Awake, alert and oriented, no acute distress CVS: S1S2 N RS: CTA B/L Abd: Soft, nt/nd , bs+ FORK OPERATOR: no focal neuro deficits : Scrotal swelling improved since last evaluation however continues to be pretty sizable. Extremities lower extremity edema significantly improved at this point. Urinary Catheter Management^: Gates: Cath Placed During This Visit: yes, but has since been removed by the nurse Reason for Continuing Indwelling Catheter: Decision to DC Catheter Date Urinary Catheter Removed: 04/08/20 Time Urinary Catheter Discontinued: 12:48 Data : 04/08/20 09:26 04/08/20 09:26 A&P Assessment and plan (1) Hyponatremia: -Likely secondary to MICHAEL, hypovolemic, some component of cardiorenal - appreciate nephrology recommendations -Sodium is currently stabilized recommend follow-up with primary care provider in the next 4 to 7 days. Status: Acute (2) Acute renal failure superimposed on chronic kidney disease: -Patient's creatinine continues to improve to 1.7 -Renal ultrasound does not show any hydronephrosis, large left renal cyst, does show enlarged prostate, ultrasound of the pelvis does not show any free fluid -Bedside ultrasound showed that the bladder was collapsed, Gates catheter was seen inside bladder -Hold all nephrotoxic agents -Monitor ins and outs closely -Monitor serum sodium, potassium -Appreciate nephrology recommendations Status: Acute Qualifiers: Acute renal failure type: unspecified Chronic kidney disease stage: unspecified stage Qualified Code(s): N17.9 - Acute kidney failure, unspecified; N18.9 - Chronic kidney disease, unspecified (3) Incarcerated right inguinal hernia: -Status post bilateral reduction and repair of bilateral incarcerated inguinal hernias by Dr. Edmonds, -Doing well from a postsurgical standpoint Status: Acute (4) Type 2 diabetes mellitus: -Hemoglobin A1c 8.9 -During course of admission patient was on sliding scale insulin and Levemir 5 units. Upon discharge, his metformin has been increased from 500 p.o. twice daily to 1000 mg p.o. twice daily. Closely follow-up with your primary care provider for blood sugar management. Status: Acute Qualifiers: Diabetes mellitus retirement insulin use: without retirement use Diabetes mellitus complication status: without complication Qualified Code(s): E11.9 - Type 2 diabetes mellitus without complications (5) Hyperlipidemia: -Check lipid panel Status: Acute Qualifiers: Hyperlipidemia type: other hyperlipidemia Qualified Code(s): E78.49 - Other hyperlipidemia (6) Systolic heart failure: -Has a history of CHF, systolic, no history of echocardiogram recently, but did have a cardiac catheterization in December 2013 with a EF of 30%, currently BNP is 6647 -Has a history of CAD, cardiac cath on December 2013, LAD normal, left circumflex normal, RCA chronic occlusion ostial, ramus normal, left MCA single stenosis 60%, currently medically managed. LV systolic function is severely reduced with EF of 25 to 30%. Severe global hypokinesis need noted. Diastolic function is abnormal. Elevated RA pressure. Moderate pulmonary hypertension. At least moderate tricuspid regurgitation. Appreciate cardiology recommendations -Continue aspirin, statin -Continue Coreg 3.125 twice daily -Added lisinopril 2.5 mg p.o. daily once creatinine trended down to 1.7 per cardiology recommendations. -Spironolactone has been discontinued in view of MICHAEL. -Encourage ambulation, daily weights, - currently on RA -Diuresis recommendations per cardiology and nephrology. Switch to oral diuretics today in anticipation of upcoming discharge Status: Acute Qualifiers: Heart failure chronicity: acute on chronic Qualified Code(s): I50.23 - Acute on chronic systolic (congestive) heart failure (7) ASHD (arteriosclerotic heart disease): Status: Acute (8) HTN (hypertension): Status: Acute Qualifiers: Hypertension type: essential hypertension Qualified Code(s): I10 - Essential (primary) hypertension (9) CKD (chronic kidney disease): -Baseline creatinine is roughly 1.4, during course of admission this peaked at 4.4, now has trended down to 1.7. Status: Acute Qualifiers: Chronic kidney disease stage: stage 3 (moderate) Qualified Code(s): N18.3 - Chronic kidney disease, stage 3 (moderate) (10) Scrotal edema: Appears to be a part of generaalized anasarca. He has some decreased vascular flow involving the left testicle, probably chronic. Appreciate gen/surg assessment. Significantly improving with diuresis and scotal supports and wraps. Removed Gates catehter Discontinued fluconazole on discharge as candiduria likely to represnt colonization from Gates which has now been removed. Recommend follow-up with urology with Dr. Erickson for scrotal swelling, possible hydrocele. Acute epididymitis was read on 1 of the ultrasound, however there are no clinical signs to suggest this. Status: Acute (11) Anemia: Received Venofer over 3 days in the hospital. Now being discharged on iron supplementation and therapeutic multivitamins. Status: Acute Qualifiers: Anemia type: due to chronic kidney disease Chronic kidney disease stage: unspecified stage Qualified Code(s): N18.9 - Chronic kidney disease, unspecified; D63.1 - Anemia in chronic kidney disease Additional A&P Information Stable for discharge from medical standpoint with optimization of medications today. Recommend follow-up with cardiology within 2 weeks Recommend follow-up with urology as an outpatient for scrotal swelling. Recommend follow-up with primary care provider in the next 4 to 7 days as multiple medications have been changed and optimized while in the hospital, will likely need repeat labs to keep a tab on sodium, potassium, creatinine levels.. Attestations Medical Necessity Statement*: Stable for discharge from a medical standpoint today, best optimized at this point. Coding Level of Care Code Acute Intermediate Card Tender for Chaitanya Parsons Diagnoses Hyponatremia E87.1 Acute renal failure superimposed on chronic kidney disease N17.9; N18.9 Acute renal failure type: unspecified Chronic kidney disease stage: unspecified stage Incarcerated right inguinal hernia K40.30 Type 2 diabetes mellitus E11.9 Diabetes mellitus retirement insulin use: without long term care phlebotomist use Diabetes mellitus complication status: without complication Hyperlipidemia E78.49 Hyperlipidemia type: other hyperlipidemia Systolic heart failure I50.23 Heart failure chronicity: acute on chronic ASHD (arteriosclerotic heart disease) I25.10 HTN (hypertension) I10 Hypertension type: essential hypertension CKD (chronic kidney disease) N18.3 Chronic kidney disease stage: stage 3 (moderate) Scrotal edema N50.89 Anemia N18.9; D63.1 Anemia type: due to chronic kidney disease Chronic kidney disease stage: unspecified stage
[2020-04-09 10:56] VITALS: PULSE 63; RESP 18; O2SAT 97
[2020-04-09 11:22] VITALS: BP 132/87; PULSE 63; RESP 18; O2SAT 97
[2020-04-09 11:25] VITALS: BP 116/65; PULSE 63; RESP 12; TEMP 36.7; O2SAT 95
[2020-04-09 11:32] LABS: Glucose Point of Care 213 mg/dL (70-110)
--- NOTE | 2020-04-09 16:25 | PM.PN ---
Subjective Subjective: Interval history: I am seeing him in follow up for his renal failure. No nausea or vomiting Medications: Reviewed: Yes Vitals/I&O/Wt Last Vital Signs Temp 98.0 F 04/09/20 11:25 Pulse 63 04/09/20 11:25 Resp 12 04/09/20 11:25 BP 116/65 04/09/20 11:25 Pulse Ox 95 04/09/20 11:25 04/09/20 04/09/20 04/09/20 06:59 14:59 22:59 Intake Total 150 / 950 240 / 240 Output Total 300 / 950 200 / 200 Balance -150 / 0 40 / 40 Physical Exam Const: COMMON NORMALS: no acute distress and patient oriented x3 GENERAL APPEARANCE: cooperative and comfortable ORIENTATION/CONSCIOUSNESS: Yes awake Resp: COMMON NORMALS: clear to auscultation bilaterally AUSCULTATION: clear to auscultation bilaterally Cardio: COMMON NORMALS: S1 normal heart sound present and S2 normal heart sound present HEART SOUNDS: S1 normal heart sound present and S2 normal heart sound present GI: AUSCULTATION: Yes normoactive bowel sounds Extremity: GENERAL: No edema Neuro: COMMON NORMALS: patient oriented x3 Skin: COMMON NORMALS: no rashes or lesions noted GENERAL SKIN EXAM: no rashes or lesions noted Urinary Catheter Management^: Bustos: Cath Placed During This Visit: yes, but has since been removed by the nurse Reason for Continuing Indwelling Catheter: Decision to DC Catheter Date Urinary Catheter Removed: 04/08/20 Time Urinary Catheter Discontinued: 12:48 Data : 04/08/20 09:26 04/08/20 09:26 A&P Assessment and plan (1) Anemia: Follow hb Status: Acute Qualifiers: Anemia type: due to chronic kidney disease Chronic kidney disease stage: unspecified stage Qualified Code(s): N18.9 - Chronic kidney disease, unspecified; D63.1 - Anemia in chronic kidney disease (2) Hyponatremia: Sodium level improving/stable Status: Acute (3) Acute renal failure superimposed on chronic kidney disease: Kidney function improving, if he gets discharged today then he needs to f/u with his pcp or fundraising sale representative as outpt Status: Acute Qualifiers: Acute renal failure type: unspecified Chronic kidney disease stage: unspecified stage Qualified Code(s): N17.9 - Acute kidney failure, unspecified; N18.9 - Chronic kidney disease, unspecified (4) HTN (hypertension): BP under control Status: Acute Qualifiers: Hypertension type: essential hypertension Qualified Code(s): I10 - Essential (primary) hypertension Attestations Medical Necessity Statement*: MICHAEL Coding Level of Care Code Acute Statistician Theoretical for Chg Fwd Diagnoses Anemia N18.9; D63.1 Anemia type: due to chronic kidney disease Chronic kidney disease stage: unspecified stage Hyponatremia E87.1 Acute renal failure superimposed on chronic kidney disease N17.9; N18.9 Acute renal failure type: unspecified Chronic kidney disease stage: unspecified stage HTN (hypertension) I10 Hypertension type: essential hypertension
--- NOTE | 2020-04-10 17:05 | PM.DCS ---
Discharge Providers Date of Admission: 03/29/20 20:25 Date of Discharge: April 10, 2020 Attending Provider at Admission: Neto Edmonds MD Attending Provider at Discharge: Neto Edmonds MD Primary Care Provider: Jose Manuel Mooney MD Diagnoses at Discharge Discharge Diagnosis (1) Anemia: Status: Acute Qualifiers: Anemia type: due to chronic kidney disease Chronic kidney disease stage: unspecified stage Qualified Code(s): N18.9 - Chronic kidney disease, unspecified; D63.1 - Anemia in chronic kidney disease (2) Hyponatremia: Status: Acute (3) Acute renal failure superimposed on chronic kidney disease: Status: Acute Qualifiers: Acute renal failure type: unspecified Chronic kidney disease stage: unspecified stage Qualified Code(s): N17.9 - Acute kidney failure, unspecified; N18.9 - Chronic kidney disease, unspecified (4) HTN (hypertension): Status: Acute Qualifiers: Hypertension type: essential hypertension Qualified Code(s): I10 - Essential (primary) hypertension Reason for Visit Reason for Visit: possible hernia disruption/ sent from [facility] Course Discharge Summary: This is a 79-year-old white male who had a longstanding history of bilateral inguinal hernias. By his own history, these have been incarcerated for some time. He was straining on the commode 3 days prior to presentation in the emergency department when he felt something tear in the right inguinal region and his scrotum became much larger. He began having some intestinal obstructive symptoms and was passing very little flatus. Eventually his convinced him to come to the emergency department for evaluation after he stayed at home for several days because he is stubborn. He was found to have bilateral incarcerated inguinal hernias with the larger right side containing small bowel and part of his cecum/ascending colon in his scrotum with a resulting obstructive process. The left inguinal hernia contained an incarcerated loop of sigmoid colon. The patient was seen by the hospitalist team and cardiology while he was still in the emergency room. It was felt that he urgently needed to have reduction of his hernias to prevent/reverse any ischemic changes to his bowel that were possibly taking place. The patient underwent surgery the same day as his presentation and both of his incarcerated hernias were reduced and repaired. No bowel had to be excised. No immediate surgical or cardiac complications were encountered. Postoperatively the patient was followed by cardiology, nephrology and the hospitalist team. His bowel function returned and an oral diet was initiated which the patient did well with throughout the remainder of his stay. His postoperative course was complicated by an acute renal injury on top of chronic kidney disease that was felt to be prerenal in etiology. This was made more difficult to manage due to the patient's history of congestive heart failure with a 25 to 30% ejection fraction. He was slowly rehydrated and his diuretics and lisinopril were held. Eventually his acute kidney injury began to improve. He was then diuresed with intravenous Lasix to the point where he was eventually thought to be stable enough to be discharged to home. The patient also experienced some buildup of serosanguineous fluid in the inguinal regions (some eventually drained at the very right side of his transverse incision) and scrotum from the space that had been created by reduction of his bilateral hernias. This was still present by the time of his discharge, but it is anticipated that this will hopefully eventually resolve spontaneously. Upon discharge arrangements were made for the patient to follow-up with his primary care physician, cardiology, urology, and general surgery. He was instructed with respect to wound care, activity limitations including instructions to avoid strenuous activity. His discharge medications were adjusted by the other members of the care team prior to his discharge. Physical Exam Narrative: EXAM NARRATIVE: Vital signs are stable. The lungs are clear and the heart is regular. The abdomen reveals bowel sounds. The incision is well approximated. The patient does have some induration and apparent fluid buildup in the area of his previous incarcerated hernias as expected. Urinary Catheter Management^: Bustos: Cath Placed During This Visit: yes, but has since been removed by the nurse Reason for Continuing Indwelling Catheter: Decision to DC Catheter Date Urinary Catheter Removed: 04/08/20 Time Urinary Catheter Discontinued: 12:48 Discharge Data Data Completed and Pending: Completed Studies During Hospitalization Category Date Time Status CT abdomen pelvis w con* [id number] Urge nt Cat Scan 03/29/20 15:15 Completed XR chest 1V stephanie ble [id number] Stat Exams 03/30/20 07:22 Completed XR chest 1V stephanie ble [id number] Urgent Exams 03/29/20 15:27 Completed CV echo complete* [id number] Routine Ultrasound 03/30/20 07:00 Completed US abdomen limite d [id number] Routine Ultrasound 03/31/20 08:59 Completed US renal BI* [id number] 0 Routine Ultrasound 03/31/20 07:38 Completed US scrotum [id number] Routine Ultrasound 04/02/20 09:05 Completed US testicular [US scrotum 22389] Ro utine Ultrasound 04/03/20 06:00 Completed Vitals: Last Vital Signs Temp 98.0 F 04/09/20 11:25 Pulse 63 04/09/20 11:25 Resp 12 04/09/20 11:25 BP 116/65 04/09/20 11:25 Pulse Ox 95 04/09/20 11:25 Discharge Plan Discharge Patient Disposition: Home Health Service Condition: Stable Prescriptions: New atorvastatin 40 mg Tablet 40 mg PO DAILY 30 Days Qty: 30 RF: 0 carvedilol 6.25 mg Tablet 6.25 mg PO BID 30 Days Qty: 60 RF: 0 polyethylene glycol 3350 17 gram Powder In Packet 17 g PO DAILY Qty: 0 RF: 0 famotidine 20 mg Tablet 20 mg PO BID 30 Days Qty: 60 RF: 0 Nystop 100,000 unit/gram Powder 1 applic topical BID 30 Days Qty: 30 RF: 0 Thera 400 mcg Tablet 1 tab PO DAILY 30 Days Qty: 30 RF: 0 lisinopril 2.5 mg tablet 2.5 mg PO DAILY 30 Days Qty: 30 RF: 0 ferrous sulfate 325 mg (65 mg iron) tablet 325 mg PO DAILY 30 Days Qty: 30 RF: 0 Continued aspirin [Aspir-81] 81 mg tablet,delayed release (DR/EC) 81 mg PO DAILY RF: 0 potassium chloride [Klor-Con 10] 10 mEq tablet extended release 20 meq PO BID RF: 0 Changed furosemide 40 mg tablet 40 mg PO BID 30 Days Qty: 0 RF: 0 metformin 500 mg tablet 1,000 mg PO BID Qty: 0 RF: 0 Discontinued spironolactone 25 mg tablet 25 mg PO DAILY RF: 0 Discharge Orders: Discharge Order (Routine); Ordered 04/09/20 Ordered By: Hiwot Trejo Other Ambulatory Orders: DME: Navdeep (Order) Location: None Selected Ordered By: Hiwot Trejo Referrals: Neto Edmonds MD [Physician] - 7-10 days (Please have the patient / family call Dr. Edmonds's office on Friday ([phone]) and make an appointment for the patient to be seen in 7-10 days.) Facundo Erickson MD [Physician] - 2 weeks (Dr. Erickson's office will be calling you to set up and appointment for 2 weeks. If you don't hear from them by tomorrow (Friday) afternoon give them a call at [phone]. hospital discharge f/up, scrotal swelling in hospital, improved with diuresis and scrotal wraps. Question of epididymitis on US inpatient, however did not appear compatible with clinical picture ) Stewart Barfield MD [Physician] - 2 weeks (Dr. Barfield's office will be calling you to set up an appointment for 2 weeks. If you don't hear from them by tomorrow (Friday) afternoon give them a call at [phone].) Jose Manuel Mooney MD [Primary Care Provider] - 4-7 days (Dr. Mooney office will be calling you to set up an appointment for 4-7 days. If you don't hear from them by tomorrow (Friday) afternoon give them a call at [phone]. post hospital discharge follow up, multiple medications optimized/changed during admission ) Discharge Diet: Advance as tolerated Discharge Activity: Limit activity as instructed Patient Instructions: Lisinopril (By mouth), Famotidine (By mouth), Nystatin/Triamcinolone (On the skin), Atorvastatin (By mouth), Carvedilol (By mouth), Inguinal Hernia (DC) Activity Restrictions/Additional Instructions: 1. Appointment to see Dr. Edmonds in 7-10 days as above. 2. May shower at home, keep wound covered for any drainage at home. No lifting over 20 pounds, no repetitive bending or twisting, no strenuous pushing / pulling or other heavy activity. Ambulate regularly. May go up and down steps if needed. Discharge Date/Time: 04/09/20 12:45 Discharge Attestations Time Spent in Discharge Care*: less than 30 min Quality Metrics Clinical Quality Measures During this hospital stay, did patient experience: None Coding Level of Care Code Acute Store Deli Manager for g Fwd Diagnoses Anemia N18.9; D63.1 Anemia type: due to chronic kidney disease Chronic kidney disease stage: unspecified stage Hyponatremia E87.1 Acute renal failure superimposed on chronic kidney disease N17.9; N18.9 Acute renal failure type: unspecified Chronic kidney disease stage: unspecified stage HTN (hypertension) I10 Hypertension type: essential hypertension
== END 2020-04-09 12:45 | disposition home health service (06) | DRG 351 ==
LOC: ER 17:10 → OPS 18:06 → CSU 03-30 05:46
PROVIDERS: Family Medicine; Internal Medicine; Internal Medicine Nephrology; Physician Assistant; Student in an Organized Health Care Education/Training Program; Admitting Provider Surgery; PCP Family Medicine; Visit Provider Surgery
PROC: 0YQA0ZZ Repair Bilateral Inguinal Region, Open Approach (ICD-10-PCS; principal; 2020-03-29 18:15)
DX: K40.00 Bilateral inguinal hernia, with obstruction, without gangrene, not specified as recurrent (principal); K56.690 Other partial intestinal obstruction; I13.0 Hypertensive heart and chronic kidney disease with heart failure and stage 1 through stage 4 chronic kidney disease, or unspecified chronic kidney disease; N17.9 Acute kidney failure, unspecified; E87.1 Hypo-osmolality and hyponatremia; I50.22 Chronic systolic (congestive) heart failure; I25.10 Atherosclerotic heart disease of native coronary artery without angina pectoris; Z98.61 Coronary angioplasty status; I25.5 Ischemic cardiomyopathy; N18.3 Chronic kidney disease, stage 3 (moderate); E11.22 Type 2 diabetes mellitus with diabetic chronic kidney disease; E78.5 Hyperlipidemia, unspecified; I25.2 Old myocardial infarction; E66.9 Obesity, unspecified; Z68.31 Body mass index [BMI] 31.0-31.9, adult; F17.210 Nicotine dependence, cigarettes, uncomplicated; E11.51 Type 2 diabetes mellitus with diabetic peripheral angiopathy without gangrene; E87.5 Hyperkalemia; D63.1 Anemia in chronic kidney disease; Z79.82 Long term (current) use of aspirin; N50.89 Other specified disorders of the male genital organs; I07.1 Rheumatic tricuspid insufficiency; I27.20 Pulmonary hypertension, unspecified; N40.0 Benign prostatic hyperplasia without lower urinary tract symptoms
CPT/HCPCS: 12345; 36415; 36416; 71045; 74177; 76705; 76770; 76870; 80048; 80053; 80061; 81001; 82436; 82550; 82570; 82728; 82962; 83036; 83540; 83550; 83605; 83735; 83880; 84100; 84133; 84295; 84300; 84540; 85025; 85610; 85999; 87040; 87086; 87106; 93005; 93306; 94640; 96372; 96375; 97110; 97116; 97124; 97140; 97162; 97166; 97530; 97535; 99283; J0330; J0690; J0696; J1644; J1756; J1815; J1940; J2250; J2270; J2370; J2405; J2710; J3010; J3490; J7030; J7050; J7614; Q3014; Q9967; S0030

== ENCOUNTER 2020-07-07 09:44 | Outpatient (CLI) | payer MEDICARE, SELFPAY ==
--- NOTE | 2020-07-07 09:53 | FL_ITS ---
WS: [id number] FL barium swallow modified [id number] REASON FOR EXAM: Other dysphagia FLUOROSCOPY TIME: 2.5 minutes FINDINGS: The swallowing of multiple small barium meals of varying consistency was monitored with fluoroscopy a nd video recorded. Detailed report will be issued by the department of speech therapy. The swallowing mechanism appeared intact and no aspiration was identified. To complete the evaluation a barium esophagram is recommended. FL/FL barium swallow modifd [id number] IMPRESSION: Swallowing study as above.
== END 2020-07-07 09:45 | disposition home or self-care (01) ==
PROVIDERS: PCP Family Medicine; Visit Provider Family Medicine
DX: R13.19 Other dysphagia (principal)
CPT/HCPCS: 74230; 92611

== ENCOUNTER 2020-08-28 12:43 | Inpatient (IN) | payer MEDICARE, SELFPAY ==
--- NOTE | 2020-08-28 13:04 | XRR_ITS ---
PROCEDURE INFORMATION: Exam: XR Chest, 1 View Exam date and time: 08/28/2020 2:06 PM Age: 79 years old Clinical indication: Cardiovascular condition or disease; Other: Heart failure TECHNIQUE: Imaging protocol: XR of the chest Views: Frontal portable upright view of the chest. COMPARISON: CR XR chest 1V portable [id number] 03/30/2020 8:30 AM FINDINGS: Lungs: The pulmonary vasculature is normal. The lungs are clear bilaterally. Pleural spaces: Unremarkable. No pleural effusion. No pneumothorax. Heart/Mediastinum: Stable moderate cardiomegaly. Mediastinum: Stable. Vasculature: Moderate aortic arch atherosclerotic calcification without ectasia. Mild tortuosity of the descending thoracic aorta. Bones/joints: Stable. XR/XR chest 1V portable [id number] IMPRESSION: No acute cardiopulmonary abnormality identified.
--- NOTE | 2020-08-28 13:05 | ECG_ITS ---
[facility] Test Date: 2020-08-28 Pat Name: Rhett Cotto Department: Room: 256 Gender: Male Sewer Connector: : 1940 Requested By: Ilia Hendrix Order Number: [id number] Reading MD: MAGALYS CINTRON Measurements Intervals [place] Rate: 74 P: -6 AR: 274 QRS: -32 QRSD: 133 T: 152 QT: 402 QTc: 446 Interpretive Statements SINUS RHYTHM WITH FIRST DEGREE AV BLOCK WITH OCCASIONAL VENTRICULAR PREMATURE COMPLEXES INTRAVENTRICULAR CONDUCTION DELAY [130+ ms QRS DURATION] INFERIOR MYOCARDIAL INFARCTION [40+ ms Q WAVE AND/OR ST/T ABNORMALITY IN II/aVF], OF INDETERMINATE AGE WARNING: DATA QUALITY MAY AFFECT INTERPRETATION Compared to ECG 03/30/2020 03:50:26 Ventricular premature complex(es) now present First degree AV block now present Intraventricular conduction delay now present T-wave abnormality no longer present Possible ischemia no longer present Myocardial infarct finding still present Electronically Signed On 08-28-2020 19:29:32 BULK FLUIDS HANDLER by MAGALYS CINTRON [id number]
[2020-08-28 13:09] VITALS: BMI 30.6
--- NOTE | 2020-08-28 13:31 | PM.HP ---
Providers/Chief Complaint Admitting Physician: Ilia Hendrix MD Primary Care Provider: Jose Manuel Mooney MD Chief Complaint: heart failure History of Present Illness Rhett Cotto is a 79 year old male is directly admitted at the request of Dr. Mooney because patient presented with significant fluid overload and in acute CHF exacerbation. Apparently patient ran out of his Lasix and was not taking. He was recently seen by Dr. Barfield and spironolactone was added. Patient denies paroxysmal atrial dyspnea or orthopnea. Reports that he is using only one pillow to sleep. He has been dyspneic with exertion but denies shortness of breath at rest. He reports drinking large amount of fluids. He noticed bilateral lower extremity swelling as well as blisters and fluid weeping. Patient otherwise denied any complaints except being more constipated. He does have history of ischemic cardiomyopathy. He denies previous history of heart surgery or coronary stents placed. Records indicate that patient had previous history of SD and coronary angioplasty. Review of Systems Const: Denies: fever(s) or chills Eyes: Denies: change in vision ENMT: Denies: throat pain or change in hearing Card: Reports: edema; Denies: chest pain or lightheadedness Resp: Reports: dyspnea; Denies: productive cough GI: Reports: constipation; Denies: abdominal pain, nausea, vomiting, dysphagia, diarrhea, hematochezia or melena : Denies: difficulty urinating or urinary frequency Musc: Denies: joint pain or joint swelling Skin/Breast: Denies: rash or erythema Neuro: Denies: headache(s) or weakness in extremities Psych: Reports: depression (Denies any suicidal or homicidal ideations.); Denies: suicidal ideation Endo: Denies: excessive sweating Rudi/Lymph: Denies: easy bleeding or tender lymph nodes All/Imm: Denies: throat swelling Medications/Allergies Home Medications Medication Instructions Recorded Confirmed Last Taken Type aspirin 81 mg tablet,delayed 81 mg PO DAILY 11/22/19 03/29/20 03/28/20 History release potassium chloride 10 mEq 20 meq PO BID tab 11/23/19 03/29/20 03/28/20 History tablet,extended release furosemide 40 mg PO BID 30 Days #0 tab 04/09/20 03/29/20 03/28/20 Rx metformin 1,000 mg PO BID #0 tab 04/09/20 03/29/20 03/28/20 Rx polyethylene glycol 3350 17 g PO DAILY #0 ea 04/09/20 Unknown Rx Allergies Allergy/AdvReac Type Severity Reaction Status Date / Time No Known Allergies Allergy Verified 03/29/20 15:40 PFSH Acute PFSH: Medical History Anasarca ASHD (arteriosclerotic heart disease) Cardiomyopathy CHF (congestive heart failure) Cleft palate and cleft lip Diabetes Dyslipidemia HTN (hypertension) Myocardial infarction Preoperative clearance Surgical History Cleft palate Surgically repaired History of tonsillectomy Leg fracture, left Lower leg fractures repaired with rods and bone grafts S/P PTCA (percutaneous transluminal coronary angioplasty) Family History Other Diabetes Social History Smoking and tobacco status: never smoked Alcohol intake: current Alcohol intake frequency: holidays/special occasions only Household members: spouse Marital status: Physical Exam Const: COMMON NORMALS: no acute distress, patient oriented x3 and alert OTHER: Muffled voice because of cleft palate. HENMT: COMMON NORMALS: normocephalic and atraumatic HEAD & SCALP: normocephalic and atraumatic Eye: COMMON NORMALS: EOMs intact bilaterally, conjunctivae normal and no scleral icterus CONJUNCTIVA: Yes conjunctivae normal Neck/C-Spine: COMMON NORMALS: no lymphadenopathy and no meningeal signs Lymph: LYMPHATIC: no lymphadenopathy noted Chest: COMMONS NORMALS: normal palpation of entire chest wall Resp: COMMON NORMALS: No use of accessory muscles OTHER: Very minimal bibasilar Rales Cardio: COMMON NORMALS: regular rate, regular rhythm and No murmurs present (Cardio) RATE: regular rate RHYTHM: regular rhythm OTHER: 3+ lower extremity edema with weeping fluid. GI: COMMON NORMALS: Soft to palpation and non-tender PALPATION: Yes Soft to palpation RECTAL EXAM: Yes deferred : COMMON NORMALS: Yes no CVA tenderness BLADDER/KIDNEY EXAM: Yes no CVA tenderness Back/Pelvis: COMMON NORMALS: no CVA tenderness and thoracic and lumbar spine normal to inspection Extremity: COMMON NORMALS: normal to inspection and capillary refill normal Neuro: COMMON NORMALS: patient oriented x3 and no focal motor deficits SENSORIUM/ORIENTATION: Yes alert MENINGEAL SIGNS: Yes no meningeal signs Psych: COMMON NORMALS: mental status grossly normal, Normal thought process present and cooperative THOUGHT PROCESS: Normal thought process present Skin: NARRATIVE SKIN EXAM: Bilateral similar lower extremity erythema secondary to stasis dermatitis. GENERAL SKIN EXAM: no rashes or lesions noted A&P Assessment and plan (1) CHF (congestive heart failure): Status: Acute (2) Type 2 diabetes mellitus: Status: Acute Qualifiers: Diabetes mellitus nursing home insulin use: without manager intermediate use Diabetes mellitus complication status: without complication Qualified Code(s): E11.9 - Type 2 diabetes mellitus without complications (3) Anasarca: Status: Acute Additional A&P Information PLAN: Discussed with patient regarding importance of fluid restriction. Patient voiced understanding. Start patient on IV Lasix twice daily Obtain basic labs and troponin/EKG and BNP. Obtain chest x-ray and bilateral lower extremity venous ultrasound. Will perform rapid Covid test. Attestations Medical Necessity Statement*: Patient with acute CHF exacerbation and fluid overload requires close inpatient monitoring and treatment. I expect patient will require more than 2 midnights. Coding Level of Care Code Acute Registered Pharmacy Technician for [facility] Fwd Diagnoses CHF (congestive heart failure) I50.9 Type 2 diabetes mellitus E11.9 Diabetes mellitus nursing home insulin use: without nursing home use Diabetes mellitus complication status: without complication Anasarca R60.1
--- NOTE | 2020-08-28 13:42 | USCV_ITS ---
Rhett Cotto Age: 79 Gender: M : 1940 Exam Date: 08/28/2020 14:59 Ordering Phys: Ilia Hendrix MD Technologist: Shakila Levy Exam Location: [facility]_ Indication: BLE SWELLING HISTORY: Lower extremity swelling. Lower extremity pain. PROCEDURES: Venous duplex imaging was performed in bilateral lower extremities. The following venous structures were evaluated: common femoral vein, profunda vein, proximal portion of the greater saphenous vein, superficial femoral vein, and the popliteal vein. In addition, the posterior tibial veins were evaluated. Serial compression, augmentation maneuvers, and spectral Doppler flow evaluation were performed. FINDINGS: No evidence of DVT seen in any vessel visualized at this time. CONCLUSIONS No evidence of right lower extremity DVT. No evidence of left lower extremity DVT. Alberto Kohler MD (Electronically Signed) Final Date: 28 August 2020 17:11 S
[2020-08-28 13:44] VITALS: BP 157/90; PULSE 80; RESP 18; TEMP 36.1; O2SAT 90
[2020-08-28 14:15] LABS: Basophils # 0.1 10^3/uL (0.0-0.1); Basophils % 1.8 %; Eosinophils # 0.4 10^3/uL (0.0-0.8); Eosinophils % 6.4 %; Hematocrit 41.4 % (42.0-52.0); Hemoglobin 12.6 g/dL (11.7-16.6); Lymphocytes # 1.8 10^3/uL (0.8-4.8); Lymphocytes % 27.9 %; Mean Corpuscular HGB Conc 30.4 g/dL (30.0-36.0); Mean Corpuscular Hemoglobin 28.1 pg (28.0-34.0); Mean Corpuscular Volume 92.2 fL (80-94); Monocytes # 0.8 10^3/uL (0.2-0.9); Monocytes % 12.3 %; Neutrophils # 3.23 10^3/uL (1.8-7.7); Neutrophils % 51.3 %; Nucleated Red Blood Cells % 0 %; Platelet Count 267 10^3/cmm (130-400); Red Blood Count 4.49 10^6/uL (4.1-5.3); Red Cell Distribution Width 15.8 % (12.1-15.1); White Blood Count 6.3 10^3/uL (4.0-10.0)
[2020-08-28 14:52] LABS: Troponin(5th) Baseline 110 ng/L (0-15)
--- NOTE | 2020-08-28 15:05 | ECG_ITS ---
Test Date: 2020-08-28 Pat Name: Rhett Cotto Department: Room: 256 Gender: Male [employer] Law Clerk: : 1940 Requested By: Ilia Hendrix Order Number: [id number] Reading MD: MAGALYS CINTRON Measurements Intervals [place] Rate: 87 P: -65 [place]: 234 QRS: -35 QRSD: 128 T: 163 QT: 365 QTc: 441 Interpretive Statements SINUS RHYTHM WITH FIRST DEGREE AV BLOCK INFERIOR MYOCARDIAL INFARCTION [40+ ms Q WAVE AND/OR ST/T ABNORMALITY IN II/aVF], PROBABLY OLD MODERATE T-WAVE ABNORMALITY, CONSIDER LATERAL ISCHEMIA [-0.1+ mV T WAVE IN I/aVL/V5/V6] Compared to ECG 08/28/2020 13:52:21 T-wave abnormality now present Possible ischemia now present Ventricular premature complex(es) no longer present Intraventricular conduction delay no longer present Myocardial infarct finding still present Electronically Signed On 08-28-2020 19:31:52 MEDICAL LAB TECH INSTRUCTOR by MAGALYS CINTRON [id number]
[2020-08-28 15:23] LABS: Alanine Aminotransferase 22 U/L (0-41); Albumin Level 3.5 g/dL (3.5-5.2); Alkaline Phosphatase 237 IU/L (40-130); Anion Gap 14.2 (5-19); Aspartate Amino Transferase 34 U/L (0-40); Blood Urea Nitrogen 25 mg/dL (8-23); Calcium 9.4 mg/dL (8.5-10.5); Carbon Dioxide 20 mmol/L (22-29); Chloride 104 mmol/L (98-107); Globulin 4.5 g/dL (1.3-4.6); Glucose 102 mg/dL (65-115); NT Pro B Type Natriuretic Pept 2687 pg/mL (0-450); Osmolality Calculated 279 mOsm/kg (285-295); Potassium 6.2 mmol/L (3.5-5.1); Sodium 132 mmol/L (136-145); Thyroid Stimulating Hormone 12.84 uIU/mL (0.27-4.20); Total Bilirubin 0.5 mg/dL (0.15-1.2)
[2020-08-28 15:37] VITALS: BP 132/84; PULSE 79; RESP 18; TEMP 36.4; O2SAT 97
[2020-08-28] MEDS: FUROsemide 10 mg/mL SDV 10mL 60 MG IVP (15:46)
[2020-08-28] MEDS: heparin 5,000 unit/mL INJ 1 mL 5000 UNIT SUBCUT ×2 (15:48→20:47)
[2020-08-28 16:23] LABS: Troponin 5 2HR 96.81 ng/L (0-15)
[2020-08-28 17:16] LABS: Glucose Point of Care 119 mg/dL (70-110)
[2020-08-28] MEDS: sodium polystyrene sulfonate 15 gm/60 mL Btl PO (18:01)
[2020-08-28 18:49] LABS: Troponin 5 6HR 106.3 ng/L (0-15); Troponin 5 6HR Delta -3.7 ng/L (0-12)
[2020-08-28 19:30] VITALS: BP 133/84; PULSE 92; RESP 20; TEMP 37.1; O2SAT 97
[2020-08-28] MEDS: sennosides 8.6 mg Tablet 17.2 MG PO (20:47)
[2020-08-28] MEDS: acetaminophen 325 mg Tablet 650 MG PO (20:47)
[2020-08-28 20:50] LABS: Glucose Point of Care 136 mg/dL (70-110)
[2020-08-29] VITALS (9 sets, daily range): BP systolic 110–129; BP diastolic 65–75; PULSE 63–94; RESP 17–20; TEMP 36.6–37.1; O2SAT 94–99
[2020-08-29] MEDS: FUROsemide 10 mg/mL SDV 10mL 60 MG IVP ×2 (03:40→14:40)
[2020-08-29 05:11] LABS: Basophils # 0.1 10^3/uL (0.0-0.1); Eosinophils # 0.1 10^3/uL (0.0-0.8); Eosinophils % 1.9 %; Hematocrit 35.3 % (42.0-52.0); Hemoglobin 11.1 g/dL (11.7-16.6); Lymphocytes # 1.1 10^3/uL (0.8-4.8); Lymphocytes % 15.7 %; Mean Corpuscular HGB Conc 31.4 g/dL (30.0-36.0); Mean Corpuscular Hemoglobin 27.9 pg (28.0-34.0); Mean Corpuscular Volume 88.7 fL (80-94); Mean Platelet Volume 10.8 fL (7.4-10.4); Monocytes # 0.7 10^3/uL (0.2-0.9); Monocytes % 11.1 %; Neutrophils # 4.68 10^3/uL (1.8-7.7); Nucleated Red Blood Cells % 0 %; Platelet Count 250 10^3/cmm (130-400); Red Blood Count 3.98 10^6/uL (4.1-5.3); Red Cell Distribution Width 15.6 % (12.1-15.1); White Blood Count 6.7 10^3/uL (4.0-10.0)
[2020-08-29 05:36] LABS: Alanine Aminotransferase 18 U/L (0-41); Alkaline Phosphatase 197 IU/L (40-130); Anion Gap 12.7 (5-19); Aspartate Amino Transferase 27 U/L (0-40); Blood Urea Nitrogen 28 mg/dL (8-23); Carbon Dioxide 21 mmol/L (22-29); Chloride 105 mmol/L (98-107); Globulin 3.6 g/dL (1.3-4.6); Glucose 111 mg/dL (65-115); Magnesium 1.6 mg/dL (1.7-2.3); NT Pro B Type Natriuretic Pept 4566 pg/mL (0-450); Osmolality Calculated 284 mOsm/kg (285-295); Potassium 4.7 mmol/L (3.5-5.1); Sodium 134 mmol/L (136-145); Total Bilirubin 0.8 mg/dL (0.15-1.2); Total Protein 6.6 g/dL (6.6-8.7)
[2020-08-29] MEDS: heparin 5,000 unit/mL INJ 1 mL 5000 UNIT SUBCUT ×3 (05:39→21:29)
[2020-08-29 06:10] LABS: Glucose Point of Care 119 mg/dL (70-110)
[2020-08-29] MEDS: aspirin 81 mg Chew Tablet PO (08:13)
[2020-08-29] MEDS: pantoprazole DR 40 mg Tablet PO (08:13)
--- NOTE | 2020-08-29 08:21 | PC.NURSE ---
DR QUINCY MATHEW PREVIOUSLY IN ROOM - STATES TO LEAVE BLE SAT INSTRUCTOR - IMPROVEMENT FROM YESTERDAY
--- NOTE | 2020-08-29 10:01 | PC.CHAP ---
Pastoral Care Encounter/Spiritual Assessment Type of Contact [] Declined patch sander visit [] Patient/Family/Request visit [] Outpatient visit [] Follow-up visit [] Physician referral [] Code/Alert [x] Routine visit [] Staff referral [] Actively dying [] Patient sleeping [] Family support [] [] Out of room [] Palliative care [] [] Receiving care in room [] Pre-surgical visit [] Trauma [] Long length of stay [] ICU visit [] Other: Relational/Emotional Strength [x] Patient feels connected with others/family/visitors/staff [] Distress [] Loneliness/isolation [] Abandonment Spirituality of Patient [x] Person of Shelli [] Attends Orthodox of their Shelli [] Believes in Prayer [] Reads Bible or Alevism materials [] There are Spiritual issues to be addressed [employer] Interventions [x] Prayer [] Active listening [] Non-anxious presence [] Spiritual/emotional support [] Crisis/trauma care [] Spiritual counseling [] Bereavement support [] Provided bereavement packet [] Provided Bible/devotional materials [] Provided toy/stuffed animal, coloring book to patient or family member [] Provided Communion [] Anointing/[place] [] Salvation [] Completed spiritual assessment [] Other: Impact on Illness or Injury [] Angry [] Fearful [] Anxious [] Often cries [] Exhaustion [] Unable to work [] Unable to attend anabaptism [] Unable to walk/stand [] Unable to read [] Unable to drive [] Unable to eat/drink [] Unable to sleep [] Unable to be with family [] Patient intubated [] Other: Summary Time spent with patient 10 min
[2020-08-29 12:23] LABS: Glucose Point of Care 122 mg/dL (70-110)
--- NOTE | 2020-08-29 15:11 | PM.PN ---
Subjective Subjective: Interval history: Patient reports feeling much better this morning. Denies shortness of breath or chest pain. His lower extremity much improved. Reports that he feels his right lower extremity hurts more. He had good urine output and vitals are stable. Troponin is elevated and this appears to be related to demand ischemia. Patient denies chest pain. Vitals/I&O/Wt Last Vital Signs Temp 98.4 F 08/29/20 12:00 Pulse 89 08/29/20 14:38 Resp 18 08/29/20 12:00 BP 124/65 08/29/20 12:00 Pulse Ox 96 08/29/20 14:38 08/29/20 08/29/20 08/29/20 06:59 14:59 22:59 Intake Total 360 / 360 Output Total 500 / 500 Balance -140 / -140 Weight last 48 hrs Weight 96.706 kg Weight 96.706 kg Physical Exam Narrative: EXAM NARRATIVE: Lungs are clear and heart is regular. Lower extremity swelling improved 2+ with no significant weeping noted. Data : 08/29/20 04:55 08/29/20 04:55 A&P Assessment and plan (1) CHF (congestive heart failure): Acute combined heart failure. Present on admission Status: Acute (2) Type 2 diabetes mellitus: Status: Acute Qualifiers: Diabetes mellitus shelter insulin use: without shelter use Diabetes mellitus complication status: without complication Qualified Code(s): E11.9 - Type 2 diabetes mellitus without complications (3) Anasarca: Status: Acute Additional A&P Information PLAN: Continue aggressive diuresis. Monitor electrolytes Replete magnesium. Physical therapy. Attestations Medical Necessity Statement*: Patient with acute CHF exacerbation requires close inpatient monitoring and treatment until deemed safe for discharge. Time Spent in Patient Care: 16 - 35 minutes Coding Level of Care Code Acute Telecine Operator for [facility] F[facility] Diagnoses CHF (congestive heart failure) I50.9 Type 2 diabetes mellitus E11.9 Diabetes mellitus shelter insulin use: without shelter use Diabetes mellitus complication status: without complication Anasarca R60.1
[2020-08-29] MEDS: magnesium sulfate premix 2 GM/50 ML PIGGYBACK IV (15:51)
[2020-08-29 16:40] LABS: Glucose Point of Care 224 mg/dL (70-110)
[2020-08-29 20:56] LABS: Glucose Point of Care 130 mg/dL (70-110)
[2020-08-29] MEDS: sennosides 8.6 mg Tablet 17.2 MG PO (21:29)
[2020-08-30] VITALS (7 sets, daily range): BP systolic 105–124; BP diastolic 65–79; PULSE 62–85; RESP 13–19; TEMP 36.6–37.1; O2SAT 95–97
[2020-08-30] MEDS: FUROsemide 10 mg/mL SDV 10mL 60 MG IVP ×2 (03:47→16:01)
[2020-08-30 05:15] LABS: Basophils # 0.1 10^3/uL (0.0-0.1); Basophils % 1.1 %; Eosinophils # 0.3 10^3/uL (0.0-0.8); Eosinophils % 4.2 %; Hematocrit 32.9 % (42.0-52.0); Hemoglobin 10.6 g/dL (11.7-16.6); Lymphocytes # 1.7 10^3/uL (0.8-4.8); Lymphocytes % 26.9 %; Mean Corpuscular HGB Conc 32.2 g/dL (30.0-36.0); Mean Corpuscular Volume 86.8 fL (80-94); Monocytes # 0.8 10^3/uL (0.2-0.9); Monocytes % 12.1 %; Neutrophils # 3.44 10^3/uL (1.8-7.7); Neutrophils % 55.4 %; Nucleated Red Blood Cells % 0 %; Platelet Count 232 10^3/cmm (130-400); Red Blood Count 3.79 10^6/uL (4.1-5.3); Red Cell Distribution Width 15.7 % (12.1-15.1); White Blood Count 6.2 10^3/uL (4.0-10.0)
[2020-08-30] MEDS: heparin 5,000 unit/mL INJ 1 mL 5000 UNIT SUBCUT ×3 (05:20→21:13)
[2020-08-30 05:37] LABS: Alanine Aminotransferase 13 U/L (0-41); Albumin Level 2.9 g/dL (3.5-5.2); Alkaline Phosphatase 176 IU/L (40-130); Anion Gap 11.8 (5-19); Aspartate Amino Transferase 20 U/L (0-40); Blood Urea Nitrogen 34 mg/dL (8-23); Calcium 8.7 mg/dL (8.5-10.5); Carbon Dioxide 24 mmol/L (22-29); Chloride 101 mmol/L (98-107); Globulin 3.4 g/dL (1.3-4.6); Glucose 92 mg/dL (65-115); Magnesium 1.9 mg/dL (1.7-2.3); Osmolality Calculated 283 mOsm/kg (285-295); Potassium 3.8 mmol/L (3.5-5.1); Sodium 133 mmol/L (136-145); Total Bilirubin 0.6 mg/dL (0.15-1.2); Total Protein 6.3 g/dL (6.6-8.7)
[2020-08-30 06:57] LABS: Glucose Point of Care 115 mg/dL (70-110)
[2020-08-30] MEDS: aspirin 81 mg Chew Tablet PO (08:06)
[2020-08-30] MEDS: pantoprazole DR 40 mg Tablet PO (08:06)
--- NOTE | 2020-08-30 11:08 | US_ITS ---
WS: [id number] INDICATION: Wound left lower extremity TECHNIQUE: Ultrasound area of concern FINDINGS: Ultrasound left lower extremity in the areas of concern. No evidence of drainable fluid col lection or abscess. Subcutaneous edema. US/US soft tissue/extremity 22308 IMPRESSION: Subcutaneous edema left lower leg. No evidence of abscess or draina ble fluid collection.
--- NOTE | 2020-08-30 11:10 | P.PN_ITS ---
Subjective Subjective: Interval history: Patient reports feeling well. Continues to have some discomfort in his right lower extremity. Today on his left lower extremity just above ankle small opening noted with purulent drainage. No fluctuance of the surrounding tissue appreciated. Patient denies shortness of breath or chest pain. He had good urinary output and his lower extremity swelling significantly improved. Vitals/I&O/Wt Last Vital Signs Temp 97.9 F 08/30/20 08:00 Pulse 62 08/30/20 08:00 Resp 18 08/30/20 08:00 BP 108/73 08/30/20 08:00 Pulse Ox 97 08/30/20 08:00 08/29/20 08/30/20 08/30/20 22:59 06:59 14:59 Intake Total 170 / 530 Output Total 300 / 800 350 / 1150 Balance -130 / -270 -350 / -620 Weight last 48 hrs Weight 96.706 kg Weight 96.706 kg Physical Exam Narrative: EXAM NARRATIVE: Lungs are clear and heart is regular. Lower extremity swelling improved 1-2+. Minimal residual erythema noted around area of drainage after stasis dermatitis much improved. Data : 08/30/20 04:37 08/30/20 04:37 A&P Assessment and plan (1) CHF (congestive heart failure): Acute combined heart failure. Present on admission Status: Acute (2) Type 2 diabetes mellitus: Status: Acute Qualifiers: Diabetes mellitus local intermodal truck driver insulin use: without retirement use Diabetes mellitus complication status: without complication Qualified Code(s): E11.9 - Type 2 diabetes mellitus without complications (3) Anasarca: Status: Acute (4) Left leg cellulitis: Present on admission. Concern for underlying abscess. Status: Acute (5) Hypothyroid: Present on admission. Status: Acute Additional A&P Information PLAN: Continue with diuresis. Start patient on Keflex and obtain soft tissue ultrasound to make sure there is no underlying abscess. Start patient on levothyroxine for treatment of hypothyroid. Patient will need to have outpatient follow-up with endocrinology and wound care. Attestations Medical Necessity Statement*: Patient with CHF and now appears to have cellulitis with potential underlying abscess requires close inpatient monitoring and treatment until deemed safe for discharge. Time Spent in Patient Care: 16 - 35 minutes Coding Level of Care Code Acute Custodial Foreman for Chg Fwd Diagnoses CHF (congestive heart failure) I50.9 Type 2 diabetes mellitus E11.9 Diabetes mellitus local intermodal truck driver insulin use: without local intermodal truck driver use Diabetes mellitus complication status: without complication Anasarca R60.1 Left leg cellulitis L03.116 Hypothyroid E03.9
[2020-08-30 12:23] LABS: Glucose Point of Care 151 mg/dL (70-110)
[2020-08-30] MEDS: cephALEXin 500 mg Capsule PO ×2 (15:08→21:12)
[2020-08-30 15:13] LABS: Quest SARS-CoV-2 RNA NOT DETECTED (NOT DETECTED)
[2020-08-30 16:34] LABS: Glucose Point of Care 178 mg/dL (70-110)
[2020-08-30 18:02] LABS: Glucose Point of Care 185 mg/dL (70-110)
[2020-08-30 21:03] LABS: Glucose Point of Care 220 mg/dL (70-110)
[2020-08-30] MEDS: sennosides 8.6 mg Tablet 17.2 MG PO (21:12)
[2020-08-31] VITALS: BP 118/71; PULSE 69; RESP 13; TEMP 36.8; O2SAT 94
[2020-08-31 03:57] VITALS: BP 132/72; PULSE 72; RESP 14; TEMP 36.9; O2SAT 98
[2020-08-31] MEDS: FUROsemide 10 mg/mL SDV 10mL 60 MG IVP (04:26)
--- NOTE | 2020-08-31 05:14 | PC.NURSE ---
PT missed bucket. Large amount of urine on the floor.
[2020-08-31 05:20] LABS: Basophils # 0.1 10^3/uL (0.0-0.1); Eosinophils # 0.3 10^3/uL (0.0-0.8); Eosinophils % 4.5 %; Hematocrit 31.8 % (42.0-52.0); Hemoglobin 10.3 g/dL (11.7-16.6); Lymphocytes # 1.3 10^3/uL (0.8-4.8); Mean Corpuscular HGB Conc 32.4 g/dL (30.0-36.0); Mean Corpuscular Hemoglobin 27.8 pg (28.0-34.0); Mean Corpuscular Volume 85.9 fL (80-94); Monocytes # 0.7 10^3/uL (0.2-0.9); Monocytes % 11.5 %; Neutrophils # 3.47 10^3/uL (1.8-7.7); Neutrophils % 60.7 %; Nucleated Red Blood Cells % 0 %; Platelet Count 213 10^3/cmm (130-400); Red Cell Distribution Width 15.7 % (12.1-15.1); White Blood Count 5.7 10^3/uL (4.0-10.0)
[2020-08-31 05:37] LABS: Alanine Aminotransferase 15 U/L (0-41); Albumin Level 2.6 g/dL (3.5-5.2); Alkaline Phosphatase 170 IU/L (40-130); Anion Gap 13.1 (5-19); Aspartate Amino Transferase 18 U/L (0-40); Blood Urea Nitrogen 44 mg/dL (8-23); Calcium 8.2 mg/dL (8.5-10.5); Carbon Dioxide 24 mmol/L (22-29); Chloride 101 mmol/L (98-107); Globulin 3.5 g/dL (1.3-4.6); Glucose 150 mg/dL (65-115); Magnesium 1.8 mg/dL (1.7-2.3); Osmolality Calculated 292 mOsm/kg (285-295); Potassium 4.1 mmol/L (3.5-5.1); Sodium 134 mmol/L (136-145); Total Bilirubin 0.4 mg/dL (0.15-1.2); Total Protein 6.1 g/dL (6.6-8.7)
[2020-08-31] MEDS: heparin 5,000 unit/mL INJ 1 mL 5000 UNIT SUBCUT (05:59)
[2020-08-31] MEDS: levothyroxine 75 mcg Tablet 150 MCG PO (05:59)
--- NOTE | 2020-08-31 06:08 | PC.NURSE ---
PT missed bucket. Large amount of urine in the floor.
[2020-08-31 06:56] LABS: Glucose Point of Care 137 mg/dL (70-110)
[2020-08-31] MEDS: pantoprazole DR 40 mg Tablet PO (07:49)
[2020-08-31] MEDS: cephALEXin 500 mg Capsule PO (07:49)
[2020-08-31] MEDS: aspirin 81 mg Chew Tablet PO (07:49)
[2020-08-31 08:00] VITALS: BP 102/66; PULSE 71; RESP 18; TEMP 37.2; O2SAT 96
--- NOTE | 2020-08-31 08:46 | PM.DCS ---
Discharge Providers Date of Admission: 08/28/20 12:43 Date of Discharge: August 31, 2020 Attending Provider at Admission: Ilia Hendrix MD Attending Provider at Discharge: Ilia Hendrix MD Primary Care Provider: Jose Manuel Mooney MD Diagnoses at Discharge Discharge Diagnosis (1) CHF (congestive heart failure): Status: Acute (2) Type 2 diabetes mellitus: Status: Acute Qualifiers: Diabetes mellitus complication status: without complication Diabetes mellitus pet caregiver insulin use: without [facility] use Qualified Code(s): E11.9 - Type 2 diabetes mellitus without complications (3) Anasarca: Status: Acute (4) Left leg cellulitis: Status: Acute (5) Hypothyroid: Status: Acute Reason for Visit Reason for Visit: heart failure Hospital Course Hospital Course Patient presented with acute heart failure and severe anasarca after apparently he ran out of his diuretics. He was admitted and aggressively diuresed. He gradually improved. Yesterday he bumped his left leg onto bed and had small amount of bleeding. His wound much improved. Currently does not appear to have underlying infectious process but cannot be completely ruled out. He has erythematous left lower extremity which appears to be chronic secondary to previous surgery/deformity he has in that leg. I will continue patient on Omnicef for 7 more days instead of Keflex to improve compliance. Reports that he ambulates without difficulty with use of walker. Feels well today and wants to go home. Denies shortness of breath or chest pain. Denies abdominal pain. Appears to have good appetite and oral intake. We will request patient to follow-up with wound care clinic. His wound will need to be watched/treated. Cellulitis mimicking condition suspected. If not improving patient may require skin biopsy. Patient was diagnosed with hypothyroidism. He was started on levothyroxine and will need to have repeat TSH in 6 weeks to adjust dose if needed. I will let Dr. Mooney to address that and decide if patient needs endocrinology or not. Physical Exam Narrative: EXAM NARRATIVE: Lungs are clear and heart is regular. Lower extremity edema much improved and now 1-2+. Left lower extremity has superficial open wound approximately 2 cm in diameter. Wound bed appears to be noninfected. Erythema around appears to be chronic although cellulitis cannot be completely ruled out it felt unlikely. Discharge Data Data Completed and Pending: Completed Studies During Hospitalization Category Date Time Status XR chest 1V stephanie ble [id number] Urgent Exams 08/28/20 13:04 [place] [id number] Routin e Ultrasound 08/28/20 13:42 Completed US soft tissue/ex tremity [id number] Rout ine Ultrasound 08/30/20 11:08 Completed Pending at discharge Category Date Time Status Urinalysis Routin e Lab 08/28/20 13:44 Uncollected Labs from last 24 hours 08/31/20 08/31/20 08/31/20 06:43 04:54 04:54 WBC 5.7 RBC 3.70 L Hgb 10.3 L Hct 31.8 L MCV 85.9 MCH 27.8 L MCHC 32.4 RDW 15.7 H Plt Count 213 MPV 11.0 H Neut % (Auto) 60.7 Lymph % (Auto) 22.0 [place] % (Auto) 11.5 Eos % (Auto) 4.5 Baso % (Auto) 1.0 Neut # (Auto) 3.47 Lymph # (Auto) 1.3 [place] # (Auto) 0.7 Eos # (Auto) 0.3 Baso # (Auto) 0.1 Nucleated RBC % (a uto) 0 Nucleated RBCs # 0.0 Sodium 134 L Potassium 4.1 Chloride 101 Carbon Dioxide 24 Anion Gap 13.1 BUN 44 H Creatinine 1.6 H GFR Calculation Not Reportable Glucose 150 H POC Glucose 137 H Calculated Osmolal ity 292 Calcium 8.2 L Magnesium 1.8 Total Bilirubin 0.4 AST 18 ALT 15 Alkaline Phosphata se 170 H Total Protein 6.1 L Albumin 2.6 L Globulin 3.5 SARS-CoV-2 RNA (RT -PCR) 08/30/20 08/30/20 08/30/20 20:52 17:59 16:26 WBC RBC Hgb Hct MCV MCH MCHC RDW Plt Count MPV Neut % (Auto) Lymph % (Auto) [place] % (Auto) Eos % (Auto) Baso % (Auto) Neut # (Auto) Lymph # (Auto) [place] # (Auto) Eos # (Auto) Baso # (Auto) Nucleated RBC % (a uto) Nucleated RBCs # Sodium Potassium Chloride Carbon Dioxide Anion Gap BUN Creatinine GFR Calculation Glucose POC Glucose 220 H 185 H 178 H Calculated Osmolal ity Calcium Magnesium Total Bilirubin AST ALT Alkaline Phosphata se Total Protein Albumin Globulin SARS-CoV-2 RNA (RT -PCR) 08/30/20 08/28/20 12:08 23:45 WBC RBC Hgb Hct MCV MCH MCHC RDW Plt Count MPV Neut % (Auto) Lymph % (Auto) [place] % (Auto) Eos % (Auto) Baso % (Auto) Neut # (Auto) Lymph # (Auto) [place] # (Auto) Eos # (Auto) Baso # (Auto) Nucleated RBC % (a uto) Nucleated RBCs # Sodium Potassium Chloride Carbon Dioxide Anion Gap BUN Creatinine GFR Calculation Glucose POC Glucose 151 H Calculated Osmolal ity Calcium Magnesium Total Bilirubin AST ALT Alkaline Phosphata se Total Protein Albumin Globulin SARS-CoV-2 RNA (RT -PCR) Not detected Vitals: Last Vital Signs Temp 99.0 F 08/31/20 08:00 Pulse 71 08/31/20 08:00 Resp 18 08/31/20 08:00 BP 102/66 08/31/20 08:00 Pulse Ox 96 08/31/20 08:00 Discharge Plan Discharge Patient Disposition: Home Condition: Stable Prescriptions: New levothyroxine 75 mcg Tablet 150 mcg PO QAM Qty: 60 RF: 0 cefdinir 300 mg capsule 300 mg PO BID 7 Days Qty: 14 RF: 0 Continued potassium chloride [Klor-Con 10] 10 mEq tablet extended release 20 meq PO BID RF: 0 spironolactone 25 mg tablet 25 mg PO DAILY RF: 0 aspirin 81 mg Tablet,Chewable 81 mg PO DAILY RF: 0 furosemide 40 mg tablet 40 mg PO BID 30 Days Qty: 0 RF: 0 metformin 500 mg tablet 1,000 mg PO BID Qty: 0 RF: 0 Discharge Orders: Discharge Order (Routine); Ordered 08/31/20 Ordered By: Ilia Hendrix Referrals: Jose Manuel Mooney MD [Primary Care Provider] - 09/06/20 1:15 pm Discharge Diet: Usual diet Discharge Activity: Increase activity as tolerated Activity Restrictions/Additional Instructions: Please call your doctor or present to emergency department if your condition worsens or you develop diarrhea, lightheadedness, fatigue or see blood in your stool or black stool. Please make sure you take your medications as prescribed and if you notice worsening lower extremity swelling and shortness of breath please make sure you restrict fluid intake as we have discussed. Please discuss with your doctor to have TSH checked in several weeks to adjust your thyroid medication if needed. Discharge Attestations Time Spent in Discharge Care*: greater than 30 min Quality Metrics Clinical Quality Measures During this hospital stay, did patient experience: None Coding Level of Care Code Acute Physical Education Professor for Chg Fwd Diagnoses CHF (congestive heart failure) I50.9 Type 2 diabetes mellitus E11.9 Diabetes mellitus complication status: without complication Diabetes mellitus pet caregiver insulin use: without pet caregiver use Anasarca R60.1 Left leg cellulitis L03.116 Hypothyroid E03.9
--- NOTE | 2020-08-31 10:10 | PC.SOCIAL ---
Pg 2 IMM Explained to pt Pg 2 IMM. No questions voiced. Provided pt a copy. Signed, dated, & timed a copy & placed in chart.
[2020-08-31 11:28] VITALS: BP 122/76; PULSE 72; RESP 16; TEMP 36.5; O2SAT 98
[2020-08-31 11:50] LABS: Glucose Point of Care 158 mg/dL (70-110)
[2020-08-31 13:57] VITALS: BP 122/76; PULSE 72; RESP 16; TEMP 36.5; O2SAT 98
== END 2020-08-31 12:15 | disposition home or self-care (01) | DRG 292 ==
PROVIDERS: Admitting Provider Internal Medicine; PCP Family Medicine; Visit Provider Internal Medicine
DX: I11.0 Hypertensive heart disease with heart failure (principal); I24.8 Other forms of acute ischemic heart disease; L03.116 Cellulitis of left lower limb; I50.41 Acute combined systolic (congestive) and diastolic (congestive) heart failure; T50.1X6A Underdosing of loop [high-ceiling] diuretics, initial encounter; Z91.128 Patient's intentional underdosing of medication regimen for other reason; I25.5 Ischemic cardiomyopathy; I25.10 Atherosclerotic heart disease of native coronary artery without angina pectoris; Z95.5 Presence of coronary angioplasty implant and graft; I25.2 Old myocardial infarction; E11.9 Type 2 diabetes mellitus without complications; E78.5 Hyperlipidemia, unspecified; E03.9 Hypothyroidism, unspecified; Z79.82 Long term (current) use of aspirin; Z79.84 Long term (current) use of oral hypoglycemic drugs
CPT/HCPCS: 12345; 36415; 36416; 71045; 76882; 80053; 82962; 83735; 83880; 84443; 84484; 85025; 87635; 93005; 93970; 96372; 97161; 97530; J1644; J1815; J1940; J3475

== ENCOUNTER 2020-09-19 10:07 | Outpatient (CLI) | payer MEDICARE, SELFPAY | END 2020-09-19 10:08 | disposition home or self-care (01) | LOC: WOUND 10:08 | PROVIDERS: PCP Family Medicine; Visit Provider Thoracic Surgery (Cardiothoracic Vascular Surgery) | DX: E11.621 Type 2 diabetes mellitus with foot ulcer (principal); L97.512 Non-pressure chronic ulcer of other part of right foot with fat layer exposed; L97.522 Non-pressure chronic ulcer of other part of left foot with fat layer exposed; I87.2 Venous insufficiency (chronic) (peripheral); L97.812 Non-pressure chronic ulcer of other part of right lower leg with fat layer exposed; L97.822 Non-pressure chronic ulcer of other part of left lower leg with fat layer exposed | CPT/HCPCS: 11042; 11045; G0463 ==

== ENCOUNTER 2020-09-21 04:13 | Inpatient (IN) | payer MEDICARE, SELFPAY ==
[2020-09-21] VITALS (13 sets, daily range): BP systolic 107–143; BP diastolic 60–85; PULSE 68–88; RESP 12–24; TEMP 36.3–36.7; O2SAT 93–98; BMI 26.4
--- NOTE | 2020-09-21 04:18 | CTR_ITS ---
PROCEDURE INFORMATION: Exam: CT Thoracic Spine Without Contrast Exam date and time: 09/21/2020 4:19 AM Age: 79 years old Clinical indication: Injury or trauma; Blunt trauma (contusions or hematomas); Patient HX: Fall with severe back pain TECHNIQUE: Imaging protocol: Computed tomography images of the thoracic spine without contrast. Radiation optimization: All CT scans at this facility use at least one of these dose optimization techniques: automated exposure control; mA and/or kV adjustment per patient size (includes targeted exams where dose is matched to clinical indication); or iterative reconstruction. COMPARISON: No relevant prior studies available. RADIATION DOSE METRICS: Total DLP (mGy-cm): 2947.62 FINDINGS: Vertebrae: No acute fracture. Normal alignment. Discs/Spinal canal/Neural foramina: No significant disc protrusion. No severe spinal canal stenosis. No significant neural foraminal narrowing. Soft tissues: Unremarkable. Vasculature: The ascending aorta is ectatic, measuring up to 4.2 cm. Heart: There are coarse calcific atherosclerotic changes of the coronary arteries. CT/CT thoracic spin wo con* [id number] IMPRESSION: No acute fracture. Radiation Dose CTDIVOL = (mGy): DLP = 2947.62 (mGy-cm)
--- NOTE | 2020-09-21 04:18 | CTR_ITS ---
PROCEDURE INFORMATION: Exam: CT Lumbar Spine Without Contrast Exam date and time: 09/21/2020 4:19 AM Age: 79 years old Clinical indication: Injury or trauma; Blunt trauma (contusions or hematomas); Patient HX: Fall with severe back pain TECHNIQUE: Imaging protocol: Computed tomography images of the lumbar spine without contrast. Radiation optimization: All CT scans at this facility use at least one of these dose optimization techniques: automated exposure control; mA and/or kV adjustment per patient size (includes targeted exams where dose is matched to clinical indication); or iterative reconstruction. COMPARISON: No relevant prior studies available. RADIATION DOSE METRICS: Total DLP (mGy-cm): 2160.67 FINDINGS: Vertebrae: No acute fracture. Normal alignment. Discs/Spinal canal/Neural foramina: There are multilevel disc bulges. There is multilevel facet hypertrophy. There is multilevel mild to moderate neural foraminal narrowing. No severe spinal canal stenosis. Soft tissues: Unremarkable. CT/CT lumbar spine wo con* [id number] IMPRESSION: No acute fracture. Radiation Dose CTDIVOL = (mGy): DLP = 2160.67 (mGy-cm)
--- NOTE | 2020-09-21 04:18 | CTR_ITS ---
PROCEDURE INFORMATION: Exam: CT Abdomen And Pelvis Without Contrast Exam date and time: 09/21/2020 4:19 AM Age: 79 years old Clinical indication: Injury or trauma; Blunt; Generalized; Patient HX: Fall with severe back pain; Additional info: Fa; ; TECHNIQUE: Imaging protocol: Computed tomography of the abdomen and pelvis without contrast. Radiation optimization: All CT scans at this facility use at least one of these dose optimization techniques: automated exposure control; mA and/or kV adjustment per patient size (includes targeted exams where dose is matched to clinical indication); or iterative reconstruction. COMPARISON: CT abdomen pelvis w con* [id number] 03/29/2020 4:08 PM RADIATION DOSE METRICS: Total DLP (mGy-cm): 2111.56 FINDINGS: Heart: There is cardiomegaly. Liver: Normal. No mass. Gallbladder and bile ducts: Normal. No calcified stones. No ductal dilation. Pancreas: Normal. No ductal dilation. Spleen: Normal. No splenomegaly. Adrenal glands: Normal. No mass. Kidneys and ureters: There are stable right renal cysts measuring up to 6.9 cm in diameter. Stomach and bowel: There is increased retained stool within the colon, compatible with constipation. Appendix: No evidence of appendicitis. Intraperitoneal space: Unremarkable. No free air. No significant fluid collection. Vasculature: Unremarkable. No abdominal aortic aneurysm. Lymph nodes: Unremarkable. No enlarged lymph nodes. Urinary bladder: Unremarkable as visualized. Reproductive: The prostate gland is enlarged, with calcifications. Bones/joints: There are nondisplaced T8, T9, T10 and T11 spinous process fractures. Soft tissues: There is a small fat containing umbilical hernia. There are postoperative changes reflecting recent inguinal hernia repair. CT/CT abdomen pelvis con [id number] IMPRESSION: 1. T8-T11 spinous process fractures. 2. No acute intra-abdominal abnormality. Radiation Dose CTDIVOL = (mGy): DLP = 2111.56 (mGy-cm)
--- NOTE | 2020-09-21 04:21 | W.ED.FALL ---
HPI - Fall General: Chief Complaint: Fall Stated Complaint: back pain from fall Time Seen by Provider: 09/21/20 04:14 Source: patient and EMS Mode of arrival: EMS Limitations: no limitations History of Present Illness: HPI Narrative: 71-year-old male states he had a fall 4 days ago where he injured his lower back. States had back pain since then tonight he was using a walker to go the bathroom and slipped and fell again. States he struck his lower back and has back pain he rates a 7 out of 10. He has pain over his thoracic and lumbar spine. Denies any weakness or numbness in his legs. Denies hitting his head. Denies any neck pain. Denies any extremity pain. Associated symptoms-after fall: Denies abdominal pain, chest pain or headache(s) Review of Systems Const: Denies: fever(s), chills, body aches or change in appetite Eyes: Denies: blurry vision or eye discomfort ENMT: Denies: throat pain or dental pain Card: Denies: chest pain Resp: Denies: dyspnea GI: Denies: abdominal pain, nausea, vomiting or diarrhea : Denies: dysuria Musc: Reports: back pain Skin/Breast: Denies: rash Neuro: Denies: headache(s) Psych: Denies: depression Rudi/Lymph: Denies: easy bruising All/Imm: Denies: urticaria PFSH ED PFSH: Medical History (Updated 09/21/20 @ 05:36 by Rocky Millan MD) Anasarca ASHD (arteriosclerotic heart disease) Cardiomyopathy CHF (congestive heart failure) Cleft palate and cleft lip Diabetes Dyslipidemia HTN (hypertension) Myocardial infarction Preoperative clearance Surgical History Cleft palate Surgically repaired History of tonsillectomy Leg fracture, left Lower leg fractures repaired with rods and bone grafts S/P PTCA (percutaneous transluminal coronary angioplasty) Family History Other Diabetes Social History Smoking and tobacco status: never smoked Alcohol intake: current Alcohol intake frequency: holidays/special occasions only Household members: spouse Marital status: Physical Exam Const: COMMON NORMALS: no acute distress, patient oriented x3 and healthy appearing HENMT: COMMON NORMALS: normocephalic and atraumatic HEAD & SCALP: normocephalic and atraumatic Eye: COMMON NORMALS: Equal, round and reactive pupils present and EOMs intact bilaterally PUPIL: Yes Equal, round and reactive pupils present Neck/C-Spine: COMMON NORMALS: full ROM and supple Chest: COMMONS NORMALS: normal inspection of the chest and normal palpation of entire chest wall Resp: COMMON NORMALS: normal respiratory effort, No retractions, No use of accessory muscles and clear to auscultation bilaterally AUSCULTATION: clear to auscultation bilaterally Cardio: COMMON NORMALS: regular rate, regular rhythm and No murmurs present (Cardio) RATE: regular rate RHYTHM: regular rhythm GI: COMMON NORMALS: Normal to inspection, nondistended, normoactive bowel sounds present, Soft to palpation, non-tender and no masses PALPATION: Yes Soft to palpation Back/Pelvis: OTHER: Contusion over her lower back with tenderness in the left CVA along with thoracic and T-spine with no obvious abnormalities Extremity: COMMON NORMALS: normal to inspection and full ROM Neuro: COMMON NORMALS: patient oriented x3, moves all extremities and no focal motor deficits Psych: COMMON NORMALS: mental status grossly normal, Normal thought process present and cooperative THOUGHT PROCESS: Normal thought process present Skin: COMMON NORMALS: no rashes or lesions noted and no wounds GENERAL SKIN EXAM: no rashes or lesions noted Course Vital Signs: Vital signs: Vital Signs Temperature 97.5 F L 09/21/20 04:21 Pulse Rate 84 09/21/20 04:21 Respiratory Rate 24 H 09/21/20 04:21 Blood Pressure 143/74 09/21/20 05:11 Pulse Oximetry 93 09/21/20 05:11 MDM - Fall MDM Narrative: Medical decision making narrative: Patient presents here with low back contusion from a fall. CT Shows spinous process fractures.. He is well-appearing here will place on pain meds. He is to ice the area as well. He is to follow-up his PCP and return if worsening. Imaging Data^: ct l spine: Attestation: I personally reviewed and interpreted this imaging study as follows: Radiologist's impression: [address] [address] [address] Scan Report Signed Patient: Rhett Cotto Unit #: [id number] : 1940 Age/Sex: 79 / M ADM Date: 09/21/20 Loc: ER Room/Bed: Attending Dr: Ordering Provider/Ordering MD: Rocky Millan MD Date of Service: 09/21/20 Procedure(s): CT lumbar spine wo con* [id number] Accession Number(s): [id number] Report Number: [id number] PROCEDURE INFORMATION: Exam: CT Lumbar Spine Without Contrast Exam date and time: 09/21/2020 4:19 AM Age: 79 years old Clinical indication: Injury or trauma; Blunt trauma (contusions or hematomas); Patient HX: Fall with severe back pain TECHNIQUE: Imaging protocol: Computed tomography images of the lumbar spine without contrast. Radiation optimization: All CT scans at this facility use at least one of these dose optimization techniques: automated exposure control; mA and/or kV adjustment per patient size (includes targeted exams where dose is matched to clinical indication); or iterative reconstruction. COMPARISON: No relevant prior studies available. RADIATION DOSE METRICS: Total DLP (mGy-cm): 2160.67 FINDINGS: Vertebrae: No acute fracture. Normal alignment. Discs/Spinal canal/Neural foramina: There are multilevel disc bulges. There is multilevel facet hypertrophy. There is multilevel mild to moderate neural foraminal narrowing. No severe spinal canal stenosis. Soft tissues: Unremarkable. CT/CT lumbar spine wo con* [id number] IMPRESSION: No acute fracture. ct t spine: Radiologist's impression: [address] [address] [address] Scan Report Signed Patient: Rhett Cotto Unit #: [id number] : 1940 Age/Sex: 79 / M ADM Date: 09/21/20 Loc: ER Room/Bed: Attending Dr: Ordering Provider/Ordering MD: Rocky Millan MD Date of Service: 09/21/20 Procedure(s): CT thoracic spin wo con* [id number] Accession Number(s): [id number] Report Number: [id number] PROCEDURE INFORMATION: Exam: CT Thoracic Spine Without Contrast Exam date and time: 09/21/2020 4:19 AM Age: 79 years old Clinical indication: Injury or trauma; Blunt trauma (contusions or hematomas); Patient HX: Fall with severe back pain TECHNIQUE: Imaging protocol: Computed tomography images of the thoracic spine without contrast. Radiation optimization: All CT scans at this facility use at least one of these dose optimization techniques: automated exposure control; mA and/or kV adjustment per patient size (includes targeted exams where dose is matched to clinical indication); or iterative reconstruction. COMPARISON: No relevant prior studies available. RADIATION DOSE METRICS: Total DLP (mGy-cm): 2947.62 FINDINGS: Vertebrae: No acute fracture. Normal alignment. Discs/Spinal canal/Neural foramina: No significant disc protrusion. No severe spinal canal stenosis. No significant neural foraminal narrowing. Soft tissues: Unremarkable. Vasculature: The ascending aorta is ectatic, measuring up to 4.2 cm. Heart: There are coarse calcific atherosclerotic changes of the coronary arteries. CT/CT thoracic spin wo con* [id number] IMPRESSION: No acute fracture. CT Abd/Pel: Radiologist's impression: [address] [address] [address] Scan Report Signed Patient: Rhett Cotto Unit #: [id number] : 1940 Age/Sex: 79 / M ADM Date: 09/21/20 Loc: ER Room/Bed: Attending Dr: Ordering Provider/Ordering MD: Rocky Millan MD Date of Service: 09/21/20 Procedure(s): CT abdomen pelvis wo con [id number] Accession Number(s): [id number] Report Number: [id number] PROCEDURE INFORMATION: Exam: CT Abdomen And Pelvis Without Contrast Exam date and time: 09/21/2020 4:19 AM Age: 79 years old Clinical indication: Injury or trauma; Blunt; Generalized; Patient HX: Fall with severe back pain; Additional info: Fa; ; TECHNIQUE: Imaging protocol: Computed tomography of the abdomen and pelvis without contrast. Radiation optimization: All CT scans at this facility use at least one of these dose optimization techniques: automated exposure control; mA and/or kV adjustment per patient size (includes targeted exams where dose is matched to clinical indication); or iterative reconstruction. COMPARISON: CT abdomen pelvis w con* [id number] 03/29/2020 4:08 PM RADIATION DOSE METRICS: Total DLP (mGy-cm): 2111.56 FINDINGS: Heart: There is cardiomegaly. Liver: Normal. No mass. Gallbladder and bile ducts: Normal. No calcified stones. No ductal dilation. Pancreas: Normal. No ductal dilation. Spleen: Normal. No splenomegaly. Adrenal glands: Normal. No mass. Kidneys and ureters: There are stable right renal cysts measuring up to 6.9 cm in diameter. Stomach and bowel: There is increased retained stool within the colon, compatible with constipation. Appendix: No evidence of appendicitis. Intraperitoneal space: Unremarkable. No free air. No significant fluid collection. Vasculature: Unremarkable. No abdominal aortic aneurysm. Lymph nodes: Unremarkable. No enlarged lymph nodes. Urinary bladder: Unremarkable as visualized. Reproductive: The prostate gland is enlarged, with calcifications. Bones/joints: There are nondisplaced T8, T9, T10 and T11 spinous process fractures. Soft tissues: There is a small fat containing umbilical hernia. There are postoperative changes reflecting recent inguinal hernia repair. CT/CT abdomen pelvis con [id number] IMPRESSION: 1. T8-T11 spinous process fractures. 2. No acute intra-abdominal abnormality. Radiation Dose CTDIVOL = (mGy): DLP = 2111.56 (mGy-cm) Discharge Plan Discharge Patient Disposition: Home Clinical Impression: Fall Qualifiers: Encounter type: initial encounter Qualified Code(s): W19.XXXA - Unspecified fall, initial encounter Contusion of lower back Qualifiers: Encounter type: initial encounter Qualified Code(s): S30.0XXA - Contusion of lower back and pelvis, initial encounter Fracture of spinous process of lumbar vertebra Qualifiers: Encounter type: initial encounter Fracture type: closed Qualified Code(s): S32.009A - Unspecified fracture of unspecified lumbar vertebra, initial encounter for closed fracture Condition: Stable Prescriptions: New Naprosyn 500 mg tablet 500 mg PO BID PRN (Reason: pain) Qty: 20 RF: 0 [place] 5-325 mg tablet 1 tab PO Q6H PRN (Reason: pain) Qty: 14 RF: 0 No Action potassium chloride [Klor-Con 10] 10 mEq tablet extended release 20 meq PO BID RF: 0 spironolactone 25 mg tablet 25 mg PO DAILY RF: 0 aspirin 81 mg Tablet,Chewable 81 mg PO DAILY RF: 0 levothyroxine 75 mcg Tablet 150 mcg PO QAM Qty: 60 RF: 0 furosemide 40 mg tablet 40 mg PO BID 30 Days Qty: 0 RF: 0 metformin 500 mg tablet 1,000 mg PO BID Qty: 0 RF: 0 Discharge Orders: Discharge ED (Routine); Ordered 09/21/20 Ordered By: Rocky Millan Referrals: Jose Manuel Mooney MD [Primary Care Provider] - 1-3 days Discharge Diet: Advance as tolerated Discharge Activity: Resume usual activity Patient Instructions: Contusion in Adults (ED), Back Pain (ED), Opioid Safety Coding Level of Care Code ED Marketing Underwriter for Chaitanya Fwd Exam Comprehensive
[2020-09-21] MEDS: HYDROcodone-acetaminophen 7.5-325 mg Tablet 1 TAB PO (04:28)
[2020-09-21 06:37] LABS: Basophils # 0.1 10^3/uL (0.0-0.1); Basophils % 0.7 %; Eosinophils # 0.2 10^3/uL (0.0-0.8); Eosinophils % 2.4 %; Hematocrit 32.7 % (42.0-52.0); Hemoglobin 10.5 g/dL (11.7-16.6); Lymphocytes # 1.1 10^3/uL (0.8-4.8); Lymphocytes % 14.6 %; Mean Corpuscular HGB Conc 32.1 g/dL (30.0-36.0); Mean Corpuscular Hemoglobin 27.7 pg (28.0-34.0); Mean Corpuscular Volume 86.3 fL (80-94); Mean Platelet Volume 10.3 fL (7.4-10.4); Monocytes # 0.8 10^3/uL (0.2-0.9); Monocytes % 10.9 %; Neutrophils # 5.41 10^3/uL (1.8-7.7); Neutrophils % 71.1 %; Nucleated Red Blood Cells % 0 %; Platelet Count 314 10^3/cmm (130-400); Red Blood Count 3.79 10^6/uL (4.1-5.3); Red Cell Distribution Width 15.4 % (12.1-15.1); White Blood Count 7.6 10^3/uL (4.0-10.0)
--- NOTE | 2020-09-21 06:38 | PM.HP ---
Providers/Chief Complaint Admitting Physician: Alexander Velasquez Primary Care Provider: Jose Manuel Mooney MD Chief Complaint: back pain from fall History of Present Illness Rhett Cotto is a 79 year old male with a history of congestive heart failure, anasarca, diabetes mellitus type 2, hypertension, history of bilateral lower extremity lymphedema and venous stasis dermatitis was brought to the emergency department because patient had a fall at home. He reports falling about 3 times this week. He was complaining of back pain worse with movement after the fall. Examination in the ED revealed that patient is not able to transfer or walk. His bilateral lower extremities are swollen. Blood work is pending. patient is hospitalized for further management. Review of Systems Narrative: Patient denied any shortness of breath, he denied any orthopnea, no paroxysmal nocturnal dyspnea, he denied any palpitation. He denied any fever, no dysuria, no urinary frequency. He reports compliance with his medications. Except as documented, all other systems reviewed and negative. Medications/Allergies Home Medications Medication Instructions Recorded Confirmed Last Taken Type potassium chloride 10 mEq 20 meq PO BID tab 11/23/19 08/28/20 08/28/20 08:00 History tablet,extended release furosemide 40 mg PO BID 30 Days #0 tab 04/09/20 08/28/20 08/28/20 08:00 Rx metformin 1,000 mg PO BID #0 tab 04/09/20 08/28/20 08/28/20 08:00 Rx aspirin 81 mg PO DAILY 08/28/20 08/28/20 08/28/20 08:00 History spironolactone 25 mg PO DAILY 08/28/20 08/28/20 08/28/20 08:00 History levothyroxine 150 mcg PO QAM #60 tab 08/31/20 Unknown Rx hydrocodone-acetaminophen [[place]] 1 tab PO Q6H PRN #14 tab 09/21/20 Unknown Rx naproxen [Naprosyn] 500 mg PO BID PRN #20 tab 09/21/20 Unknown Rx Allergies Allergy/AdvReac Type Severity Reaction Status Date / Time No Known Allergies Allergy Verified 03/29/20 15:40 PFSH Acute PFSH: Medical History (Updated 09/21/20 @ 06:46 by Alexander eVlasquez MD) Anasarca ASHD (arteriosclerotic heart disease) Cardiomyopathy CHF (congestive heart failure) Cleft palate and cleft lip Diabetes Dyslipidemia HTN (hypertension) Myocardial infarction Preoperative clearance Surgical History Cleft palate Surgically repaired History of tonsillectomy Leg fracture, left Lower leg fractures repaired with rods and bone grafts S/P PTCA (percutaneous transluminal coronary angioplasty) Family History Other Diabetes Social History Smoking and tobacco status: never smoked Alcohol intake: current Alcohol intake frequency: holidays/special occasions only Household members: spouse Marital status: Vitals/I&O/Wt Last Vital Signs Temp 97.5 F L 09/21/20 04:21 Pulse 88 09/21/20 05:33 Resp 18 09/21/20 05:33 BP 113/69 09/21/20 05:33 Pulse Ox 97 09/21/20 05:33 Weight last 48 hrs Weight 81.193 kg Physical Exam Const: COMMON NORMALS: no acute distress, patient oriented x3 and alert NUTRITIONAL APPEARANCE: obese HENMT: COMMON NORMALS: normocephalic and moist oral mucous membranes Eye: COMMON NORMALS: Equal, round and reactive pupils present, EOMs intact bilaterally and no scleral icterus Neck/C-Spine: COMMON NORMALS: full ROM, no lymphadenopathy and supple Lymph: LYMPHATIC: no lymphadenopathy noted Chest: COMMONS NORMALS: normal palpation of entire chest wall CHEST: Yes Symmetrical chest wall rise Resp: COMMON NORMALS: normal respiratory effort, No use of accessory muscles and clear to auscultation bilaterally Cardio: COMMON NORMALS: no JVD, regular rate, regular rhythm, S1 normal heart sound present and S2 normal heart sound present GI: COMMON NORMALS: Normal to inspection, nondistended, normoactive bowel sounds present, Soft to palpation, non-tender, No hepatosplenomegaly present and no bruits : COMMON NORMALS: Yes no CVA tenderness and Yes no scrotal swelling Back/Pelvis: COMMON NORMALS: no thoracic nor lumbar tenderness and thoraco-lumbar ROM normal Extremity: GENERAL: Yes edema (Bilateral lower extremities) and Yes other findings Neuro: COMMON NORMALS: patient oriented x3, CN's II-XII intact bilaterally and no focal motor deficits Psych: COMMON NORMALS: mental status grossly normal, Normal thought process present and cooperative SPEECH: Yes Other speech symptoms (Nasal speech) Skin: NARRATIVE SKIN EXAM: Bilateral lower extremity venous stasis ulcers and dermatitis Data : 09/21/20 06:30 09/21/20 06:30 A&P Assessment and plan (1) Fall: Status: Acute Qualifiers: Encounter type: initial encounter Qualified Code(s): W19.XXXA - Unspecified fall, initial encounter (2) Venous stasis dermatitis of both lower extremities: Status: Acute (3) Venous stasis ulcers of both lower extremities: Status: Acute (4) Generalized weakness: Status: Acute (5) Systolic heart failure: Status: Acute Qualifiers: Heart failure chronicity: acute on chronic Qualified Code(s): I50.23 - Acute on chronic systolic (congestive) heart failure (6) Type 2 diabetes mellitus: Status: Acute Qualifiers: Diabetes mellitus complication status: without complication Diabetes mellitus director long term care insulin use: without director long term care use Qualified Code(s): E11.9 - Type 2 diabetes mellitus without complications (7) Hyponatremia: Status: Acute Additional A&P Information Place patient under observation on the medical floor. Pain management for the back pain Treat increased lower extremity edema with IV Lasix. Fluid restriction to 1500 mL/day Continue Aldactone Local wound care. Lymphedema wrap. PT to evaluate for discharge planning. Continue home heart failure medications. Insulin sliding scale for glucose management. Attestations Medical Necessity Statement*: Patient presented with generalized weakness and inability to transfer or walk as well as increased lower extremity edema. He will need to be hospitalized for further evaluation and management. He is expected to spend less than 2 midnights. Coding Level of Care Code Acute Wet Chemistry Analyst for g Fwd Exam Comprehensive Diagnoses Fall W19.XXXA Encounter type: initial encounter Venous stasis dermatitis of both lower extremities I87.2 Venous stasis ulcers of both lower extremities I83.019; I83.029; L97.919; L97.929 Generalized weakness R53.1 Systolic heart failure I50.23 Heart failure chronicity: acute on chronic Type 2 diabetes mellitus E11.9 Diabetes mellitus complication status: without complication Diabetes mellitus [facility] insulin use: without director long term care use Hyponatremia E87.1
[2020-09-21 06:57] LABS: Alanine Aminotransferase 19 U/L (0-41); Albumin Level 2.9 g/dL (3.5-5.2); Alkaline Phosphatase 194 IU/L (40-130); Anion Gap 15.3 (5-19); Aspartate Amino Transferase 22 U/L (0-40); Blood Urea Nitrogen 56 mg/dL (8-23); Calcium 9.2 mg/dL (8.5-10.5); Carbon Dioxide 20 mmol/L (22-29); Chloride 99 mmol/L (98-107); Globulin 4.6 g/dL (1.3-4.6); Glucose 147 mg/dL (65-115); Osmolality Calculated 286 mOsm/kg (285-295); Potassium 5.3 mmol/L (3.5-5.1); Sodium 129 mmol/L (136-145); Total Bilirubin 0.6 mg/dL (0.15-1.2); Total Protein 7.5 g/dL (6.6-8.7)
[2020-09-21] MEDS: enoxaparin 40 mg/0.4 mL Syringe SUBCUT (08:32)
[2020-09-21] MEDS: FUROsemide 10 mg/mL SDV 4mL 40 MG IVP ×2 (08:32→20:20)
[2020-09-21] MEDS: docusate sodium 100 mg Capsule PO ×2 (08:32→17:21)
--- NOTE | 2020-09-21 09:28 | PC.CHAP ---
Pastoral Care Encounter/Spiritual Assessment Type of Contact [] Declined housekeeping assistant visit [] Patient/Family/Request visit [] Outpatient visit [] Follow-up visit [] Physician referral [] Code/Alert [x] Routine visit [] Staff referral [] Actively dying [] Patient sleeping [] Family support [] [] Out of room [] Palliative care [] [] Receiving care in room [] Pre-surgical visit [] Trauma [] Long length of stay [] ICU visit [] Other: Relational/Emotional Strength [x] Patient feels connected with others/family/visitors/staff [] Distress [] Loneliness/isolation [] Abandonment Spirituality of Patient [x] Person of Shelli [x] Attends Jewish of their Shelli [x] Believes in Prayer [] Reads Bible or Gnosticism materials [] There are Spiritual issues to be addressed Salad Bar Clerk Interventions [x] Prayer [x] Active listening [] Non-anxious presence [x] Spiritual/emotional support [] Crisis/trauma care [] Spiritual counseling [] Bereavement support [] Provided bereavement packet [] Provided Bible/devotional materials [] Provided toy/stuffed animal, coloring book to patient or family member [] Provided Communion [] Anointing/[place] [] Salvation [x] Completed spiritual assessment [] Other: Impact on Illness or Injury [] Angry [] Fearful [] Anxious [] Often cries [] Exhaustion [] Unable to work [] Unable to attend scientologist [] Unable to walk/stand [] Unable to read [] Unable to drive [] Unable to eat/drink [] Unable to sleep [] Unable to be with family [] Patient intubated [] Other: Summary [facility] [place] Time spent with patient 10 min
[2020-09-21 09:30] LABS: Thyroid Stimulating Hormone 3.46 uIU/mL (0.27-4.20)
[2020-09-21] MEDS: HYDROcodone-acetaminophen 5-325 mg Tablet 1 TAB PO ×2 (10:19→17:21)
[2020-09-22] VITALS (9 sets, daily range): BP systolic 106–136; BP diastolic 59–80; PULSE 43–90; RESP 17–20; TEMP 36–37.1; O2SAT 94–99
[2020-09-22 06:38] LABS: Basophils # 0.1 10^3/uL (0.0-0.1); Basophils % 0.7 %; Eosinophils # 0.4 10^3/uL (0.0-0.8); Eosinophils % 5.2 %; Hematocrit 32.2 % (42.0-52.0); Hemoglobin 10.5 g/dL (11.7-16.6); Lymphocytes # 1.3 10^3/uL (0.8-4.8); Lymphocytes % 19.2 %; Mean Corpuscular HGB Conc 32.6 g/dL (30.0-36.0); Mean Corpuscular Hemoglobin 28.2 pg (28.0-34.0); Mean Corpuscular Volume 86.3 fL (80-94); Mean Platelet Volume 10.6 fL (7.4-10.4); Monocytes # 0.8 10^3/uL (0.2-0.9); Monocytes % 11.8 %; Neutrophils % 62.7 %; Nucleated Red Blood Cells % 0 %; Platelet Count 318 10^3/cmm (130-400); Red Blood Count 3.73 10^6/uL (4.1-5.3); Red Cell Distribution Width 15.5 % (12.1-15.1); White Blood Count 6.7 10^3/uL (4.0-10.0)
[2020-09-22 07:09] LABS: Anion Gap 13.6 (5-19); Blood Urea Nitrogen 54 mg/dL (8-23); Calcium 9.1 mg/dL (8.5-10.5); Carbon Dioxide 22 mmol/L (22-29); Chloride 99 mmol/L (98-107); Glucose 122 mg/dL (65-115); Osmolality Calculated 286 mOsm/kg (285-295); Phosphorus 4.2 mg/dL (2.5-4.5); Potassium 4.6 mmol/L (3.5-5.1); Sodium 130 mmol/L (136-145)
[2020-09-22] MEDS: enoxaparin 40 mg/0.4 mL Syringe SUBCUT (08:00)
[2020-09-22] MEDS: docusate sodium 100 mg Capsule PO ×2 (08:00→17:38)
[2020-09-22] MEDS: FUROsemide 10 mg/mL SDV 4mL 40 MG IVP ×2 (08:00→21:37)
[2020-09-22] MEDS: HYDROcodone-acetaminophen 5-325 mg Tablet 1 TAB PO ×2 (08:03→16:52)
--- NOTE | 2020-09-22 08:51 | PC.PHAR ---
pt states he is not taking potassium chloride 20meq BID at this time, atorvastatin 40mg daily was last filled on 04/10/20-pt states he is not taking, carvedilol 6.25mg BID was last filled on 04/09/20-pt states he is not taking.
--- NOTE | 2020-09-22 11:27 | P.DS_ITS ---
Discharge Providers Date of Admission: 09/21/20 06:01 Date of Discharge: September 22, 2020 Attending Provider at Admission: Alexander Velasquez Attending Provider at Discharge: Ilia Hendrix MD Primary Care Provider: Jose Manuel Mooney MD Diagnoses at Discharge Discharge Diagnosis (1) Fall: Status: Acute Qualifiers: Encounter type: initial encounter Qualified Code(s): W19.XXXA - Unspecified fall, initial encounter (2) Venous stasis dermatitis of both lower extremities: Status: Acute (3) Venous stasis ulcers of both lower extremities: Status: Acute (4) Generalized weakness: Status: Acute (5) Systolic heart failure: Status: Acute Permanent problem details: Currently compensated Qualifiers: Heart failure chronicity: acute on chronic Qualified Code(s): I50.23 - Acute on chronic systolic (congestive) heart failure (6) Type 2 diabetes mellitus: Status: Acute Qualifiers: Diabetes mellitus termite treater insulin use: without termite treater use Diabetes mellitus complication status: without complication Qualified Code(s): E11.9 - Type 2 diabetes mellitus without complications (7) Hyponatremia: Status: Acute Reason for Visit Reason for Visit: back pain from fall Hospital Course Hospital Course Patient was admitted for observation after he fell and appears to develop T8-11 spinous process fracture although interestingly spinal CT of thoracic region did not mention that. Patient was monitored and this morning reports feeling much better. Reports that he is ambulating to the bathroom without difficulty. He denies shortness of breath or chest pain. Denies abdominal pain. I have recommended patient to have home health to make sure he is doing okay and to be evaluated for physical therapy. Patient refused. He does not think he needs it. Patient was prescribed naproxen. Patient was told not to take more than 3 days considering his kidney function. PPI will be prescribed for GI protection. Physical Exam Narrative: EXAM NARRATIVE: Lungs are clear and the heart is regular. Lower extremities with 1+ edema. His left lower extremity wound does not appear to be infected. Patient follows with wound care clinic. Discharge Data Data Completed and Pending: Completed Studies During Hospitalization Category Date Time Status CT abdomen pelvis wo con [id number] Urge nt Cat Scan 09/21/20 04:[address] lumbar spine w o con* [id number] Urgen t Cat Scan 09/21/20 04:[address] thoracic spin wo con* [id number] Urge nt Cat Scan 09/21/20 04:18 Completed Labs from last 24 hours 09/22/20 09/22/20 05:47 05:47 WBC 6.7 RBC 3.73 L Hgb 10.5 L Hct 32.2 L MCV 86.3 MCH 28.2 MCHC 32.6 RDW 15.5 H Plt Count 318 MPV 10.6 H Neut % (Auto) 62.7 Lymph % (Auto) 19.2 [place] % (Auto) 11.8 Eos % (Auto) 5.2 Baso % (Auto) 0.7 Neut # (Auto) 4.20 Lymph # (Auto) 1.3 [place] # (Auto) 0.8 Eos # (Auto) 0.4 Baso # (Auto) 0.1 Nucleated RBC % (a uto) 0 Nucleated RBCs # 0.0 Sodium 130 L Potassium 4.6 Chloride 99 Carbon Dioxide 22 Anion Gap 13.6 BUN 54 H Creatinine 1.7 H GFR Calculation Not Reportable Glucose 122 H Calculated Osmolal ity 286 Calcium 9.1 Phosphorus 4.2 Magnesium 2.0 Vitals: Last Vital Signs Temp 97.8 F 09/22/20 10:55 Pulse 77 09/22/20 10:55 Resp 18 09/22/20 10:55 BP 117/74 09/22/20 10:55 Pulse Ox 97 09/22/20 10:55 Discharge Plan Discharge Patient Disposition: Home Condition: Stable Prescriptions: New naproxen [Naprosyn] 500 mg tablet 500 mg PO BID PRN (Reason: pain) Qty: 20 RF: 0 hydrocodone-acetaminophen [[place]] 5-325 mg tablet 1 tab PO Q6H PRN (Reason: pain) Qty: 14 RF: 0 omeprazole 20 mg capsule,delayed release(DR/EC) 20 mg PO DAILY 28 Days RF: 0 No Action spironolactone 25 mg tablet 25 mg PO DAILY RF: 0 aspirin 81 mg Tablet,Chewable 81 mg PO DAILY RF: 0 levothyroxine 75 mcg Tablet 150 mcg PO QAM Qty: 60 RF: 0 furosemide 40 mg tablet 40 mg PO BID 30 Days Qty: 0 RF: 0 metformin 500 mg tablet extended release 24 hr 500 mg PO BID RF: 0 Referrals: Jose Manuel Mooney MD [Primary Care Provider] - 4-7 days Discharge Diet: Advance as tolerated Discharge Activity: Resume usual activity Patient Instructions: Contusion in Adults (ED), Back Pain (ED), Opioid Safety Activity Restrictions/Additional Instructions: Please call your doctor or present to emergency department if your condition worsens or you develop diarrhea, lightheadedness, fatigue or see blood in your stool or black stool. Please avoid taking naproxen regularly and not take more than 3 days. Discharge Attestations Time Spent in Discharge Care*: greater than 30 min Quality Metrics Clinical Quality Measures During this hospital stay, did patient experience: None Coding Level of Care Code Acute Regional Rehabilitation Director for [facility] Fwd Diagnoses Fall W19.XXXA Encounter type: initial encounter Venous stasis dermatitis of both lower extremities I87.2 Venous stasis ulcers of both lower extremities I83.019; I83.029; L97.919; L97.929 Generalized weakness R53.1 Systolic heart failure I50.23 Heart failure chronicity: acute on chronic Type 2 diabetes mellitus E11.9 Diabetes mellitus jail insulin use: without termite treater use Diabetes mellitus complication status: without complication Hyponatremia E87.1
--- NOTE | 2020-09-22 13:50 | PC.CHAP ---
Pastoral Care Encounter/Spiritual Assessment Type of Contact [] Declined bonderizer visit [] Patient/Family/Request visit [] Outpatient visit [] Follow-up visit [] Physician referral [] Code/Alert [xx] Routine visit [] Staff referral [] Actively dying [] Patient sleeping [] Family support [] [] Out of room [] Palliative care [] [] Receiving care in room [] Pre-surgical visit [] Trauma [] Long length of stay [] ICU visit [] Other: Relational/Emotional Strength [xx] Patient feels connected with others/family/visitors/staff [] Distress [] Loneliness/isolation [] Abandonment Spirituality of Patient [xx] Person of Shelli [xx] Attends Advent of their Shelli [xx] Believes in Prayer [xx] Reads Bible or Faith materials [] There are Spiritual issues to be addressed Pick[employer]lers Interventions [xx] Prayer [xx] Active listening [xx] Non-anxious presence [] Spiritual/emotional support [] Crisis/trauma care [] Spiritual counseling [] Bereavement support [] Provided bereavement packet [xx] Provided Bible/devotional materials [] Provided toy/stuffed animal, coloring book to patient or family member [] Provided Communion [] Anointing/[place] [] Salvation [xx] Completed spiritual assessment [] Other: Impact on Illness or Injury [] Angry [] Fearful [] Anxious [] Often cries [] Exhaustion [] Unable to work [] Unable to attend samaritan [] Unable to walk/stand [] Unable to read [] Unable to drive [] Unable to eat/drink [] Unable to sleep [] Unable to be with family [] Patient intubated [] Other: Summary Our Daily Bread given to patient. Patient feeling better and hopes to go home today or tomorrow Patient talked much about watching how the hospital has grow over the decades. 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 Time spent with patient 8 minutes
[2020-09-22] MEDS: cefTRIAXone 2,000 MG in sodium chloride 0.9% (plus) 50 ML 100 MG IV (17:37)
[2020-09-22 17:38] LABS: Glucose Point of Care 204 mg/dL (70-110)
[2020-09-22] MEDS: vancomycin 1,250 MG/250 ML PIGGYBACK 250 MG IV (18:15)
[2020-09-23] VITALS (12 sets, daily range): BP systolic 96–136; BP diastolic 56–84; PULSE 67–101; RESP 16–20; TEMP 36.5–37.2; O2SAT 92–98
[2020-09-23] MEDS: HYDROcodone-acetaminophen 5-325 mg Tablet 1 TAB PO ×3 (02:27→17:00)
--- NOTE | 2020-09-23 05:00 | USR_ITS ---
PROCEDURE INFORMATION: Exam: US Duplex Lower Extremity Arteries Exam date and time: 09/23/2020 8:31 AM Age: 79 years old Clinical indication: Other: Diabetic foot infection; Patient HX: Bilateral foot debridement done today TECHNIQUE: Imaging protocol: Real-time ultrasound scan of the arteries of the bilateral lower extremities with 2-D schwartz scale, color Doppler flow and spectral waveform analysis. Images documented and saved. COMPARISON: No relevant prior studies available. FINDINGS: Right common femoral artery: No occlusion or significant stenosis. Normal waveform. Right superficial femoral artery: No occlusion or significant stenosis. There is triphasic waveform in the proximal right superficial femoral artery, and monophasic waveform in the mid and distal segments. Right popliteal artery: No occlusion or significant stenosis. Monophasic waveform noted. Right calf/foot arteries: Unable to evaluate the right posterior tibial artery due to overlying bandages. Patent dorsalis pedis artery, with monophasic waveform. Left common femoral artery: No occlusion or significant stenosis. Normal waveform. Left superficial femoral artery: No occlusion or significant stenosis. There is triphasic waveform in the proximal and mid left superficial femoral artery, and monophasic waveform in the distal segment. Left popliteal artery: No occlusion or significant stenosis. Monophasic waveform noted. Left calf/foot arteries: Unable to evaluate the left posterior tibial artery due to overlying bandages. Patent posterior dorsalis pedis artery, with monophasic waveform. US/[place] [id number] IMPRESSION: 1. No stenosis or occlusion. 2. Monophasic waveforms in the right mid superficial femoral artery and below. 3. Monophasic waveforms in the left distal superficial femoral artery and below. 4. Unable to evaluate the bilateral posterior tibial arteries due to overlying bandages.
[2020-09-23] MEDS: levothyroxine 75 mcg Tablet 150 MCG PO (06:07)
--- NOTE | 2020-09-23 06:11 | P.CONIM_ITS ---
Providers/Reason For Consult Consulting Physican/Specialty*: Dr. Espinoza/cardiothoracic surgery Reason for Consult*: Bilateral foot wounds Attending Physician: Ilia Hendrix MD Primary Care Provider: Jose Manuel Mooney MD History of Present Illness History of Present Illness Rhett Cotto is a 79 year old male whom I originally saw at wound care services on September 19 with bilateral extensive lower extremity edema from the knees distally with several ulcerations of the lower extremities including the dorsal and plantar aspects of the feet bilaterally, also involving ankles. At that time, he had actively weeping wounds. Extensive curette debridement was performed with a #15 scalpel blade and Metzenbaum scissors. Patient has a history problem list including diabetes mellitus, atherosclerotic heart disease, cardiomyopathy, and chronic kidney disease. He was recently admitted for a fall and suffered determined to have several thoracic spinous fractures. During evaluation in preparation for discharge he was found to have worsening bilateral foot wounds. I was consulted to consider debridement. During his wound care clinic visit he underwent extensive debridement and we recommended arterial duplex studies for us interrogation of suspected peripheral vascular disease. He is followed by Dr. Barfield from our cardiology service. He maintains extensive lower extremity edema and would benefit from compressive therapy if his arterial outflow is adequate to allow such treatment. He has openly weeping wounds that require dressing changes at least 2-3 times per day to protect the skin from excessive moisture. Review of Systems Narrative: Complain intermittently of some dyspnea, with the majority of his symptomatology appears related to substantial lower extremity edema with open wounds and weeping of serous fluid. ENMT: Reports: other (History of cleft palate and subsequent surgical repair) Card: Reports: swelling of feet/ankles, dyspnea on exertion and orthopnea Resp: Reports: dyspnea; Denies: hemoptysis GI: Denies: hematemesis or dysphagia Psych: Denies: anxiety or depression Meds/Allergies Home Medications and Allergies Home Medications Medication Instructions Recorded Confirmed Last Taken Type furosemide 40 mg PO BID 30 Days #0 tab 04/09/20 09/22/20 08/28/20 08:00 Rx aspirin 81 mg PO DAILY 08/28/20 09/22/20 08/28/20 08:00 History spironolactone 25 mg PO DAILY 08/28/20 09/22/20 08/28/20 08:00 History levothyroxine 150 mcg PO QAM #60 tab 08/31/20 09/22/20 Unknown Rx hydrocodone-acetaminophen [[place]] 1 tab PO Q6H PRN #14 tab 09/21/20 Unknown Rx naproxen [Naprosyn] 500 mg PO BID PRN #20 tab 09/21/20 Unknown Rx metformin 500 mg PO BID 09/22/20 09/22/20 Unknown History omeprazole 20 mg PO DAILY 28 Days cap 09/22/20 Unknown Rx Allergies Allergy/AdvReac Type Severity Reaction Status Date / Time No Known Allergies Allergy Verified 03/29/20 15:40 Current Medications Current Medications Generic Name Dose Route Start Last Admin Trade Name Freq PRN Reason Stop Dose Admin Hydrocodone Bitart/Acetaminophen 1 tab 09/21/20 07:41 09/23/20 02:27 Hydrocodone-Acetaminophen 5-325 Mg Tablet PO 1 tab Q4H PRN Administration MODERATE TO SEVERE PAIN Docusate Sodium 100 mg 09/21/20 09:00 09/22/20 17:38 Docusate Sodium 100 Mg Capsule PO 100 mg BID NICHOLAS Administration Furosemide 40 mg 09/21/20 08:00 09/22/20 21:37 Furosemide 10 Mg/Ml Sdv 4ml IVP 40 mg Q12H NICHOLAS Administration Ceftriaxone Sodium 2,000 mg/ 50 mls @ 100 mls/hr 09/22/20 16:00 09/22/20 18:27 Sodium Chloride IV Infused Q24H NICHOLAS Infusion Protocol Insulin Aspart 0 unit 09/22/20 18:00 09/22/20 18:15 Insulin Aspart 100 Unit/1 Ml SUBCUT 6 unit TIDWM NICHOLAS Administration Protocol Levothyroxine Sodium 150 mcg 09/23/20 06:00 09/23/20 06:07 Levothyroxine 75 Mcg Tablet PO 150 mcg QAM NICHOLAS Administration PFSH Acute PFSH: Medical History Anasarca ASHD (arteriosclerotic heart disease) Cardiomyopathy CHF (congestive heart failure) Cleft palate and cleft lip Diabetes Dyslipidemia HTN (hypertension) Myocardial infarction Preoperative clearance Surgical History Cleft palate Surgically repaired History of tonsillectomy Leg fracture, left Lower leg fractures repaired with rods and bone grafts S/P PTCA (percutaneous transluminal coronary angioplasty) Family History Other Diabetes Social History Smoking and tobacco status: never smoked Alcohol intake: current Alcohol intake frequency: holidays/special occasions only Household members: spouse Marital status: Vitals/I&O/Wt Last Vital Signs Temp 98.9 F 09/23/20 04:00 Pulse 73 09/23/20 04:00 Resp 18 09/23/20 04:00 BP 96/58 09/23/20 04:00 Pulse Ox 92 09/23/20 04:00 09/22/20 09/22/20 09/23/20 14:59 22:59 06:59 Intake Total 360 / 360 780 / 1140 Output Total 480 / 480 1100 / 1580 300 / 1880 Balance -120 / -120 -320 / -440 -300 / -740 Weight last 48 hrs Weight 179 lb Physical Exam Chest: COMMONS NORMALS: normal inspection of the chest and normal palpation of entire chest wall Resp: COMMON NORMALS: No retractions, No use of accessory muscles and clear to auscultation bilaterally EFFORT & INSPECTION: Yes symmetric chest movement AUSCULTATION: clear to auscultation bilaterally Cardio: COMMON NORMALS: regular rate and regular rhythm RATE: regular rate RHYTHM: regular rhythm HEART SOUNDS: Murmur heart sound present systolic Location: base Intensity: III/ Timing: mid BRUITS: no carotid bruits PERIPHERAL PULSES: radial pulses present positive bilateral 2+ Extremity: OTHER: Mild ecchymosis of the upper extremities with previous IVs. Actinic changes to his solar exposed surfaces. Lower extremities revealed 1-2+ edema though this is clearly improved from his visit to wound care services back on September 19. There is area of tissue loss plantar aspect of the right calcaneal region and slightly lateral though this is dry without associated periwound suppuratiion or erythema. The left lower extremity is more involved with a previous Clemente bandage and gauze wrap in place. No evidence for ascending cellulitis. Neuro: COMMON NORMALS: no focal motor deficits and no sensory deficits noted A&P Assessment and plan (1) Venous stasis ulcers of both lower extremities: We will plan to proceed with bilateral lower extremity leg and feet debridement of open wounds to remove necrotic material. Rationale was carefully discussed with Mr. Cotto. He is in agreement. Appropriate consents have been provided for review and signature Plan: Surgical debridement this morning. Status: Acute Consult Attestations Medical Necessity Statement: Bilateral lower extremity wounds with diabetes me llitus and CHF Time Spent in Patient Care: 16 - 35 minutes Coding Level of Care Code Established Pt Acute [employer] for [employer] Fwd Patient Type Established History Detailed Exam Detailed Medical Decision Making Moderate Complexity Diagnoses Venous stasis ulcers of both lower extremities I83.019; I83.029; L97.919; L97.929 Time Spent (min) 30
[2020-09-23 06:28] LABS: Basophils # 0.1 10^3/uL (0.0-0.1); Basophils % 0.7 %; Eosinophils # 0.3 10^3/uL (0.0-0.8); Eosinophils % 4.5 %; Hematocrit 29.1 % (42.0-52.0); Hemoglobin 9.4 g/dL (11.7-16.6); Lymphocytes % 15.4 %; Mean Corpuscular HGB Conc 32.3 g/dL (30.0-36.0); Mean Corpuscular Hemoglobin 27.5 pg (28.0-34.0); Mean Corpuscular Volume 85.1 fL (80-94); Mean Platelet Volume 10.9 fL (7.4-10.4); Monocytes # 0.7 10^3/uL (0.2-0.9); Monocytes % 10.7 %; Neutrophils % 68.3 %; Nucleated Red Blood Cells % 0 %; Platelet Count 296 10^3/cmm (130-400); Red Blood Count 3.42 10^6/uL (4.1-5.3); Red Cell Distribution Width 15.6 % (12.1-15.1); White Blood Count 6.7 10^3/uL (4.0-10.0)
[2020-09-23 06:37] LABS: Alanine Aminotransferase 14 U/L (0-41); Albumin Level 2.7 g/dL (3.5-5.2); Alkaline Phosphatase 160 IU/L (40-130); Anion Gap 15.2 (5-19); Aspartate Amino Transferase 16 U/L (0-40); Blood Urea Nitrogen 64 mg/dL (8-23); Calcium 8.5 mg/dL (8.5-10.5); Carbon Dioxide 21 mmol/L (22-29); Chloride 97 mmol/L (98-107); Globulin 3.7 g/dL (1.3-4.6); Glucose 107 mg/dL (65-115); Magnesium 1.9 mg/dL (1.7-2.3); Osmolality Calculated 287 mOsm/kg (285-295); Potassium 4.2 mmol/L (3.5-5.1); Sodium 129 mmol/L (136-145); Total Bilirubin 0.3 mg/dL (0.15-1.2); Total Protein 6.4 g/dL (6.6-8.7)
--- NOTE | 2020-09-23 08:07 | ANES.PREANE2 ---
Pre-Anesthetic Assessment Pre-Anesthetic Assessment: Height/Weight: Height 1.75 m Weight 81.193 kg Temp Pulse Resp BP Pulse Ox 98.9 F 74 18 96/58 92 09/23/20 04:00 09/23/20 06:00 09/23/20 04:00 09/23/20 04:00 09/23/20 04:00 Preop Diagnosis: 1. Incarcerated right inguinal hernia with resulting bowel obstruction.2. Left inguinal hernia. Proposed Procedure: Operation Date: 09/23/20 08:10 Proposed Procedures p Debridement(Bilateral) - hSerif Espinoza MD Familial anesthetic complications: None Was Beta Kaya taken within 24 hours: N/A Last intake: NPO > 8 hrs Social: Social History: No alcohol and No tobacco Exam: Pre-Anes Outpt Exam: alert, oriented x 3, clear to auscultation bilaterally and regular rate & rhythm Airway: Cervical ROM: WNL MP: 4 Dentition: False CV/HEM: CV/HEM: CAD (stents), CHF, HTN and VT Comments: EF 20% : : Chronic renal failure Metabolic: Metabolic: DM and Thyroid Anesthetic Plan: ASA status: 4 Anesthesia: MAC Risk of > 500 ml blood loss (7ml/kg in children): No Meds/Allergies Current Medications: Current Medications Generic Name Dose Route Start Last Admin Trade Name Freq PRN Reason Stop Dose Admin Hydrocodone Bitart /Acetaminophen 1 tab 09/21/20 07:41 09/23/20 02:27 Hydrocodone-Acet aminophen 5-325 Mg Tablet PO 1 tab Q4H PRN Administration MODERATE TO SEVER E PAIN Docusate Sodium 100 mg 09/21/20 09:00 09/22/20 17:38 Docusate Sodium 100 Mg Capsule PO 100 mg BID NICHOLAS Administration Furosemide 40 mg 09/21/20 08:00 09/22/20 21:37 Furosemide 10 Mg /Ml Sdv 4ml IVP 40 mg Q12H NICHOLAS Administration Ceftriaxone Sodium 2,000 mg/ 50 mls @ 100 mls/ hr 09/22/20 16:00 09/22/20 18:27 Sodium Chloride IV Infused Q24H NICHOLAS Infusion Protocol Insulin Aspart 0 unit 09/22/20 18:00 09/22/20 18:15 Insulin Aspart 1 00 Unit/1 Ml SUBCUT 6 unit TIDWM NICHOLAS Administration Protocol Levothyroxine Sodi um 150 mcg 09/23/20 06:00 09/23/20 06:07 Levothyroxine 75 Mcg Tablet PO 150 mcg QAM NICHOLAS Administration PFSH Anesthesia PFSH: Medical History Anasarca ASHD (arteriosclerotic heart disease) Cardiomyopathy CHF (congestive heart failure) Cleft palate and cleft lip Diabetes Dyslipidemia HTN (hypertension) Myocardial infarction Preoperative clearance Surgical History Cleft palate Surgically repaired History of tonsillectomy Leg fracture, left Lower leg fractures repaired with rods and bone grafts S/P PTCA (percutaneous transluminal coronary angioplasty) Family History Other Diabetes Social History Smoking and tobacco status: never smoked Alcohol intake: current Alcohol intake frequency: holidays/special occasions only Household members: spouse Marital status: Data Anesthesia CBC & Chem 7: 09/23/20 05:15 09/23/20 05:15 Other Labs: Laboratory Results - last 48 hr 09/21/20 09/22/20 09/22/20 06:30 05:47 05:47 WBC 6.7 RBC 3.73 L Hgb 10.5 L Hct 32.2 L MCV 86.3 MCH 28.2 MCHC 32.6 RDW 15.5 H Plt Count 318 MPV 10.6 H Neut % (Auto) 62.7 Lymph % (Auto) 19.2 [place] % (Auto) 11.8 Eos % (Auto) 5.2 Baso % (Auto) 0.7 Neut # (Auto) 4.20 Lymph # (Auto) 1.3 [place] # (Auto) 0.8 Eos # (Auto) 0.4 Baso # (Auto) 0.1 Nucleated RBC % (auto) 0 Nucleated RBCs # 0.0 Sodium 130 L Potassium 4.6 Chloride 99 Carbon Dioxide 22 Anion Gap 13.6 BUN 54 H Creatinine 1.7 H GFR Calculation Not Reportable Glucose 122 H POC Glucose Calculated Osmolality 286 Calcium 9.1 Phosphorus 4.2 Magnesium 2.0 Total Bilirubin AST ALT Alkaline Phosphatase Total Protein Albumin Globulin TSH 3.46 09/22/20 09/23/20 09/23/20 17:36 05:15 05:15 WBC 6.7 RBC 3.42 L Hgb 9.4 L Hct 29.1 L MCV 85.1 MCH 27.5 L MCHC 32.3 RDW 15.6 H Plt Count 296 MPV 10.9 H Neut % (Auto) 68.3 Lymph % (Auto) 15.4 [place] % (Auto) 10.7 Eos % (Auto) 4.5 Baso % (Auto) 0.7 Neut # (Auto) 4.60 Lymph # (Auto) 1.0 [place] # (Auto) 0.7 Eos # (Auto) 0.3 Baso # (Auto) 0.1 Nucleated RBC % (auto) 0 Nucleated RBCs # 0.0 Sodium 129 L Potassium 4.2 Chloride 97 L Carbon Dioxide 21 L Anion Gap 15.2 BUN 64 H Creatinine 1.7 H GFR Calculation Not Reportable Glucose 107 POC Glucose 204 H Calculated Osmolality 287 Calcium 8.5 Phosphorus Magnesium 1.9 Total Bilirubin 0.3 AST 16 ALT 14 Alkaline Phosphatase 160 H Total Protein 6.4 L Albumin 2.7 L Globulin 3.7 TSH Cardiac Studies: No Data to Display
[2020-09-23] MEDS: ceFAZolin 1,000 mg SDV 1000 MG IRRIGATION (08:36)
--- NOTE | 2020-09-23 09:34 | PM.OP ---
Operative Report Date of procedure: September 23, 2020 Pre-op Diagnosis: Lateral diabetic foot ulcers Post-op diagnosis: same Procedure Done: Surgical debridement of right and left calcaneal ulcers and right and left lower extremity ulcers Pathology: none sent Surgeon: Sherif Espinoza Anesthesia: MAC Estimated blood loss (mL): 50 Complications: Findings: Hawthorne stage II diabetic foot ulcers Condition: stable Disposition: PACU Brief History: 79-year-old gentleman with cardiomyopathy, CHF, chronic lower extremity swelling, diabetes mellitus, with bilateral foot and lower extremity diabetic ulcers who is been followed in wound care services. He was recently admitted after a fall with thoracic vertebral spine fractures. Debridement of the feet bilaterally is been recommended as part of continued care for his diabetic ulcers. Details and risk of procedure were carefully discussed with Mr. Cotto. Proper consents have been reviewed and signed. Procedure: Patient was taken operating room theater and carefully positioned. He received IV conscious sedation with anesthesia monitoring. His entire right and left lower extremities from the knee through the feet were prepped and draped bilaterally. He underwent sharp debridement of eschar and devitalized tissue from the right and left calcaneal wounds down to the adipose layer. Hemostasis was controlled with cautery. All devitalized tissue was removed. This appears to be a combination of both diabetes as well as pressure. In addition he underwent debridement utilizing #10 scalpel blade to the right medial superficial lower extremity wound just above the medial malleolus as well as the lateral wound of the left lower extremity just above the lateral malleolus. The more superior wound is did not extend as deeply as the calcaneal wounds all bleeding was controlled with pressure or cautery as required. There was minimal discomfort during debridement. Following this wet-to-dry dressings were simply applied to all the wounds. They were secured lightly with a Clemente bandage. Wound dimensions are as follows: Right calcaneal wound measures 3.5 x 4 x 0.2 cm Left calcaneal wound measures 4 x 4.5 x 0.3 cm Right lower extremity wound measures 3 x 2.5 x 0.1 cm Left lower extremity wound measures 3 x 2 x 0.1 cm Mr. Cotto was transferred to the postoperative care unit following the procedure. He has stable vital signs. I did confer with his , Vivi, postoperatively by phone. I have also conferred with my colleague, Dr. Hendrix, from our hospitalist service.
[2020-09-23] MEDS: FUROsemide 10 mg/mL SDV 4mL 40 MG IVP ×2 (10:12→20:33)
--- NOTE | 2020-09-23 13:20 | PC.PT ---
Hold PT per nursing. Patient had debridement of (B) heels this morning. Will re-assess status on Friday, 09/23.
--- NOTE | 2020-09-23 14:28 | P.PN_ITS ---
Subjective Subjective: Interval history: Patient denies any complaints including shortness of breath or chest pain. He had surgical debridment performed by Dr. Espinoza this morning. There was no evidence of bone involvement during procedure and MRI at this point felt unnecessary. Vitals/I&O/Wt Last Vital Signs Temp 98.6 F 09/23/20 11:56 Pulse 71 09/23/20 14:00 Resp 18 09/23/20 11:56 BP 113/66 09/23/20 11:56 Pulse Ox 98 09/23/20 09:10 09/22/20 09/23/20 09/23/20 22:59 06:59 14:59 Intake Total 780 / 1140 0 / 0 Output Total 1100 / 1580 300 / 1880 315 / 315 Balance -320 / -440 -300 / -740 -315 / -315 Weight last 48 hrs Weight 81.193 kg Physical Exam Narrative: EXAM NARRATIVE: Lungs are clear and the heart is regular. Lower extremities with 1+ edema. legs dressed. 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: Status: Acute (3) Venous stasis ulcers of both lower extremities: Status: Acute (4) Generalized weakness: Status: Acute (5) Systolic heart failure: Status: Acute Qualifiers: Heart failure chronicity: acute on chronic Qualified Code(s): I50.23 - Acute on chronic systolic (congestive) heart failure (6) Type 2 diabetes mellitus: Status: Acute Qualifiers: Diabetes mellitus assisted insulin use: without assisted use Diabetes mellitus complication status: without complication Qualified Code(s): E11.9 - Type 2 diabetes mellitus without complications (7) Hyponatremia: Status: Acute Additional A&P Information PLAN: Continue IV antibiotics for one more day and plan to DC tomorrow home with home health with outpatient follow up at wound care clinic. Patient refuses to consider SNF placement. Attestations Medical Necessity Statement*: patient post wound debridement requires inpatient monitoring and treatment for IV antibiotics. Coding Level of Care Code Acute Stave Cutting Supervisor for [facility] Fwd Diagnoses Fall W19.XXXA Encounter type: initial encounter Venous stasis dermatitis of both lower extremities I87.2 Venous stasis ulcers of both lower extremities I83.019; I83.029; L97.919; L97.929 Generalized weakness R53.1 Systolic heart failure I50.23 Heart failure chronicity: acute on chronic Type 2 diabetes mellitus E11.9 Diabetes mellitus assisted insulin use: without intermodal owner operator truck driver use Diabetes mellitus complication status: without complication Hyponatremia E87.1
[2020-09-23] MEDS: docusate sodium 100 mg Capsule PO (17:00)
[2020-09-23] MEDS: cefTRIAXone 2,000 MG in sodium chloride 0.9% (plus) 50 ML 100 MG IV (17:00)
[2020-09-24] MEDS: HYDROcodone-acetaminophen 5-325 mg Tablet 1 TAB PO ×2 (00:07→08:19)
[2020-09-24 04:00] VITALS: BP 110/62; PULSE 71; RESP 18; TEMP 36.3; O2SAT 95
[2020-09-24 06:00] VITALS: PULSE 85
[2020-09-24] MEDS: levothyroxine 75 mcg Tablet 150 MCG PO (06:07)
[2020-09-24 06:23] LABS: Basophils # 0.1 10^3/uL (0.0-0.1); Basophils % 0.9 %; Eosinophils # 0.3 10^3/uL (0.0-0.8); Eosinophils % 4.6 %; Hematocrit 29.8 % (42.0-52.0); Hemoglobin 9.6 g/dL (11.7-16.6); Lymphocytes # 1.2 10^3/uL (0.8-4.8); Lymphocytes % 15.5 %; Mean Corpuscular HGB Conc 32.2 g/dL (30.0-36.0); Mean Corpuscular Hemoglobin 27.7 pg (28.0-34.0); Mean Corpuscular Volume 85.9 fL (80-94); Mean Platelet Volume 10.5 fL (7.4-10.4); Monocytes # 0.7 10^3/uL (0.2-0.9); Monocytes % 9.5 %; Neutrophils # 5.17 10^3/uL (1.8-7.7); Neutrophils % 69.2 %; Nucleated Red Blood Cells % 0 %; Platelet Count 275 10^3/cmm (130-400); Red Blood Count 3.47 10^6/uL (4.1-5.3); Red Cell Distribution Width 15.7 % (12.1-15.1); White Blood Count 7.5 10^3/uL (4.0-10.0)
[2020-09-24 06:40] LABS: Alanine Aminotransferase 14 U/L (0-41); Albumin Level 2.8 g/dL (3.5-5.2); Alkaline Phosphatase 156 IU/L (40-130); Anion Gap 15.3 (5-19); Aspartate Amino Transferase 18 U/L (0-40); Blood Urea Nitrogen 63 mg/dL (8-23); Calcium 8.9 mg/dL (8.5-10.5); Carbon Dioxide 20 mmol/L (22-29); Chloride 101 mmol/L (98-107); Globulin 4.1 g/dL (1.3-4.6); Glucose 128 mg/dL (65-115); Osmolality Calculated 294 mOsm/kg (285-295); Potassium 4.3 mmol/L (3.5-5.1); Sodium 132 mmol/L (136-145); Total Bilirubin 0.3 mg/dL (0.15-1.2); Total Protein 6.9 g/dL (6.6-8.7)
[2020-09-24 07:00] LABS: Glucose Point of Care 126 mg/dL (70-110)
--- NOTE | 2020-09-24 07:25 | PC.NURSE ---
Report to Heena WONG at this time.
[2020-09-24 07:56] VITALS: BP 110/64; PULSE 83; RESP 17; TEMP 36.2; O2SAT 95
[2020-09-24] MEDS: FUROsemide 10 mg/mL SDV 4mL 40 MG IVP (08:18)
[2020-09-24] MEDS: aspirin 81 mg Chew Tablet PO (08:19)
[2020-09-24] MEDS: spironolactone 25 mg Tablet PO (08:19)
[2020-09-24] MEDS: docusate sodium 100 mg Capsule PO (08:19)
--- NOTE | 2020-09-24 09:39 | P.PN_ITS ---
Subjective Subjective: Interval history: Postop day #1 status post bilateral foot and leg debridement. No complaints overnight. Minimal discomfort. Dressing changes performed this morning. Wounds are clean. I would continue wet-to-dry dressings. Vitals/I&O/Wt Last Vital Signs Temp 97.2 F L 09/24/20 07:56 Pulse 83 09/24/20 07:56 Resp 17 09/24/20 07:56 BP 110/64 09/24/20 07:56 Pulse Ox 95 09/24/20 07:56 09/23/20 09/24/20 09/24/20 22:59 06:59 14:59 Intake Total 50 / 50 240 / 240 Output Total 300 / 715 500 / 1215 100 / 100 Balance -250 / -665 -500 / -1165 140 / 140 Weight last 48 hrs Weight 205 lb 8 oz Weight 179 lb Physical Exam Extremity: OTHER: Bilateral lower extremity calcaneal, foot, and lower extremity wounds are clean. Just a bit of material remains medially at the left calcaneal region. Wet-to-dry dressing changes applied. Data : 09/24/20 06:07 09/24/20 06:07 A&P Assessment and plan (1) Venous stasis ulcers of both lower extremities: Postop day #1 status post debridement of bilateral diabetic feet ulcers. Recommendations: I have conferred with my colleague, Dr. Hendrix, yesterday. From a surgical standpoint, patient may be discharged to home, hopefully with home health if he will agree. Recommend daily to twice daily wet-to-dry dressing changes. Follow-up in wound care services. I do recommend heel suspension boot to be worn at night to limit pressure on the calcaneal regions. Status: Acute Attestations Medical Necessity Statement*: Status post bilateral lower extremity diabetic foot ulcer debridement Time Spent in Patient Care: 16 - 35 minutes Coding Level of Care Code Acute Stone Driller for [facility] Fwd Diagnoses Venous stasis ulcers of both lower extremities I83.019; I83.029; L97.919; L97.929
[2020-09-24 10:38] VITALS: BP 113/70; PULSE 79; RESP 16; TEMP 36.4; O2SAT 96
--- NOTE | 2020-09-24 11:03 | P.PN_ITS ---
Subjective Subjective: Interval history: Patient denies any complaints this morning. Reports that he is absolutely going home today. Denies shortness of breath or chest pain. His wound was evaluated this morning by Dr. Espinoza and it looks good. Vitals/I&O/Wt Last Vital Signs Temp 97.6 F 09/24/20 10:38 Pulse 79 09/24/20 10:38 Resp 16 09/24/20 10:38 BP 113/70 09/24/20 10:38 Pulse Ox 96 09/24/20 10:38 09/23/20 09/24/20 09/24/20 22:59 06:59 14:59 Intake Total 50 / 50 240 / 240 Output Total 300 / 715 500 / 1215 100 / 100 Balance -250 / -665 -500 / -1165 140 / 140 Weight last 48 hrs Weight 93.213 kg Weight 81.193 kg Physical Exam Narrative: EXAM NARRATIVE: Lungs are clear and the heart is regular. Lower extremities with 1+ edema. legs dressed. 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: Status: Acute (3) Venous stasis ulcers of both lower extremities: Status: Acute (4) Generalized weakness: Status: Acute (5) Systolic heart failure: Status: Acute Qualifiers: Heart failure chronicity: acute on chronic Qualified Code(s): I50.23 - Acute on chronic systolic (congestive) heart failure (6) Type 2 diabetes mellitus: Status: Acute Qualifiers: Diabetes mellitus complication status: without complication Diabetes mellitus exterminator helper termite insulin use: without exterminator helper termite use Qualified Code(s): E11.9 - Type 2 diabetes mellitus without complications (7) Hyponatremia: Status: Acute Additional A&P Information PLAN: Will discharge patient on 1 week off Omnicef 300 mg daily. Patient to use heel suspension boot at night to limit pressure on the calcaneal regions. Patient to continue with once or twice daily dry to wet dressing changes. Patient is not interested in going to halfway facility. Discussed with patient's yesterday who reports that she will be able to continue with dressing changes as needed if she is shown how. Please refer to discharge summary performed earlier. Attestations Medical Necessity Statement*: Patient is being dismissed. Coding Level of Care Code Acute Non Licensed Nuclear Equipment Operator for [facility] Fwd Diagnoses Fall W19.XXXA Encounter type: initial encounter Venous stasis dermatitis of both lower extremities I87.2 Venous stasis ulcers of both lower extremities I83.019; I83.029; L97.919; L97.929 Generalized weakness R53.1 Systolic heart failure I50.23 Heart failure chronicity: acute on chronic Type 2 diabetes mellitus E11.9 Diabetes mellitus complication status: without complication Diabetes mellitus halfway insulin use: without halfway use Hyponatremia E87.1
[2020-09-24 11:22] LABS: Glucose Point of Care 197 mg/dL (70-110)
[2020-09-24 14:49] VITALS: BP 113/70; PULSE 79; RESP 16; TEMP 36.4; O2SAT 96
== END 2020-09-24 14:49 | disposition home health service (06) | DRG 622 ==
LOC: ER 06:02 → MEDSURG 06:11
PROVIDERS: Thoracic Surgery (Cardiothoracic Vascular Surgery); Admitting Provider Internal Medicine; Emergency Provider Emergency Medicine; PCP Family Medicine; Visit Provider Internal Medicine
DX: E11.621 Type 2 diabetes mellitus with foot ulcer (principal); L89.623 Pressure ulcer of left heel, stage 3; L89.613 Pressure ulcer of right heel, stage 3; I50.23 Acute on chronic systolic (congestive) heart failure; S22.069A Unspecified fracture of T7-T8 vertebra, initial encounter for closed fracture; S22.079A Unspecified fracture of T9-T10 vertebra, initial encounter for closed fracture; S22.089A Unspecified fracture of T11-T12 vertebra, initial encounter for closed fracture; L97.422 Non-pressure chronic ulcer of left heel and midfoot with fat layer exposed; L97.412 Non-pressure chronic ulcer of right heel and midfoot with fat layer exposed; I42.9 Cardiomyopathy, unspecified; E87.1 Hypo-osmolality and hyponatremia; I11.0 Hypertensive heart disease with heart failure; I25.10 Atherosclerotic heart disease of native coronary artery without angina pectoris; Z98.61 Coronary angioplasty status; E78.5 Hyperlipidemia, unspecified; I25.2 Old myocardial infarction; I87.2 Venous insufficiency (chronic) (peripheral); W19.XXXA Unspecified fall, initial encounter
CPT/HCPCS: 11042; 11045; 36415; 36416; 72128; 72131; 74176; 80048; 80053; 82962; 83735; 84100; 84443; 85025; 93925; 96372; 97110; 97161; 97166; 97530; 97535; 99285; G0378; G0463; J0690; J0696; J1650; J1815; J1940; J2704; J3370

== ENCOUNTER 2020-10-11 13:47 | Outpatient (CLI) | payer MEDICARE, SELFPAY | END 2020-10-11 13:48 | disposition home or self-care (01) | LOC: WOUND 13:49 | PROVIDERS: PCP Family Medicine; Visit Provider Thoracic Surgery (Cardiothoracic Vascular Surgery) | DX: I87.2 Venous insufficiency (chronic) (peripheral) (principal); L97.822 Non-pressure chronic ulcer of other part of left lower leg with fat layer exposed; L89.322 Pressure ulcer of left buttock, stage 2 | CPT/HCPCS: 11042; 11045; 97597 ==

== ENCOUNTER 2020-10-17 20:12 | Inpatient (IN) | payer MEDICARE, SELFPAY ==
--- NOTE | 2020-10-17 20:18 | XR_ITS ---
WS: [id number] Portable AP upright chest, 10/17/2020 Clinical Data: fever Comparison: Portable chest, 08/28/2020. Findings: No nodules, masses or effusions are seen. The heart is slightly enlarged. The pulmonary vas cularity is not increased. No pneumonia or pneumothorax is seen. The aortic arch and descending aorta show calcification and tortuosity. There are monitor leads on the chest wall. XR/XR chest 1V portable [id number] Impression: Cardiomegaly and atherosclerosis.
--- NOTE | 2020-10-17 20:19 | ECG_ITS ---
[facility] Test Date: 2020-10-17 Pat Name: Rhett Cotto Department: Room: Gender: Male Trapeze Performer: : 1940 Requested By: Rocky Millan Order Number: [id number] Russ MD: Ashlie Kirk M.D. Measurements Intervals [place] Rate: 98 P: 256 IN: 163 QRS: -35 QRSD: 154 T: 198 QT: 395 QTc: 506 Interpretive Statements Regular rhythm, possibly sinus; OCCASIONAL VENTRICULAR PREMATURE COMPLEXES LEFT AXIS DEVIATION [QRS AXIS < -30] INTRAVENTRICULAR CONDUCTION DELAY [130+ ms QRS DURATION] Diffuse nonspecific T wave changes Compared to ECG 08/28/2020 15:22:39 Ventricular premature complex(es) now present Left-axis deviation now present Intraventricular conduction delay now present First degree AV block no longer present Myocardial infarct finding no longer present Possible ischemia no longer present Electronically Signed On 10-18-2020 19:46:30 CDT by Ashlie Kirk M.D. [id number]
[2020-10-17 20:21] VITALS: BP 114/70; PULSE 99; RESP 22; TEMP 38.6; O2SAT 94; BMI 25.4
[2020-10-17 20:27] VITALS: BP 116/78; PULSE 100; RESP 17; O2SAT 94
--- NOTE | 2020-10-17 20:47 | ED_ITS ---
HPI - SOB/Dyspnea General: Chief Complaint: Shortness of Breath/Dyspnea Stated Complaint: SEPSIS Time Seen by Provider: 10/17/20 20:15 Source: patient and EMS Limitations: no limitations History of Present Illness: HPI Narrative: 71-year-old male states that over the last week he has been having increasing weakness has been bedbound and unable to get up and ambulate due to his weakness. Patient's had a fever along with cough as well. She here is 89. He states he has just been defecating and urinating himself in the bed as he has not been able to get up to even go to the bathroom. He denies any chest pain or abdominal pain. Denies any headache. He said no vomiting or diarrhea. He does have chronic wounds to his lower legs Associated symptoms: Reports fever(s); Deny abdominal pain, chest pain, nausea or vomiting Review of Systems Const: Reports: fever(s) and chills; Denies: body aches or change in appetite Eyes: Denies: blurry vision or eye discomfort ENMT: Denies: throat pain or dental pain Card: Denies: chest pain Resp: Denies: dyspnea GI: Denies: abdominal pain, nausea, vomiting or diarrhea : Denies: dysuria Musc: Denies: neck pain or back pain Skin/Breast: Denies: rash Neuro: Reports: weakness in extremities; Denies: headache(s) Psych: Denies: depression Rudi/Lymph: Denies: easy bruising All/Imm: Denies: urticaria PFSH ED PFSH: Medical History (Updated 10/17/20 @ 22:42 by Rocky Millan MD) Anasarca ASHD (arteriosclerotic heart disease) Cardiomyopathy CHF (congestive heart failure) Cleft palate and cleft lip Diabetes Dyslipidemia HTN (hypertension) Myocardial infarction Preoperative clearance Surgical History Cleft palate Surgically repaired History of tonsillectomy Leg fracture, left Lower leg fractures repaired with rods and bone grafts S/P PTCA (percutaneous transluminal coronary angioplasty) Family History Other Diabetes Social History Smoking and tobacco status: never smoked Alcohol intake: current Alcohol intake frequency: holidays/special occasions only Household members: spouse Marital status: Physical Exam Const: COMMON NORMALS: patient oriented x3 GENERAL APPEARANCE: ill appearing HENMT: COMMON NORMALS: normocephalic and atraumatic HEAD & SCALP: normocephalic and atraumatic Eye: COMMON NORMALS: Equal, round and reactive pupils present and EOMs intact bilaterally PUPIL: Yes Equal, round and reactive pupils present Neck/C-Spine: COMMON NORMALS: full ROM and supple Chest: COMMONS NORMALS: normal inspection of the chest and normal palpation of entire chest wall Resp: COMMON NORMALS: normal respiratory effort, No retractions and No use of accessory muscles AUSCULTATION: rales Cardio: COMMON NORMALS: regular rate, regular rhythm and No murmurs present (Cardio) RATE: regular rate RHYTHM: regular rhythm GI: COMMON NORMALS: Normal to inspection, nondistended, normoactive bowel sounds present, Soft to palpation, non-tender and no masses PALPATION: Yes Soft to palpation Extremity: COMMON NORMALS: full ROM NARRATIVE EXTREMITY EXAM: Chronic venous stasis to bilateral lower extremities Neuro: COMMON NORMALS: patient oriented x3, moves all extremities and no focal motor deficits Psych: COMMON NORMALS: mental status grossly normal, Normal thought process present and cooperative THOUGHT PROCESS: Normal thought process present Skin: COMMON NORMALS: no rashes or lesions noted and no wounds GENERAL SKIN EXAM: no rashes or lesions noted Course Vital Signs: Vital signs: Vital Signs Temperature 101.4 F H 10/17/20 20:21 Pulse Rate 100 10/17/20 21:27 Respiratory Rate 27 H 10/17/20 21:27 Blood Pressure 122/84 10/17/20 21:27 Pulse Oximetry 94 10/17/20 21:27 MDM - SOB/Dyspnea MDM Narrative: Medical decision making narrative: Patient presents here with fever with no obvious source of infection. He does have chronic venous stasis to his legs with may be a possible cellulitis. X-ray shows no pneumonia. Patient's been refusing to urinate or let us catheterize him here. He has no signs meningitis. Patient given IV antibiotics here. His lactate level and white count is normal. He is quite weak and has been urinating defecating on himself. I spoke to the hospitalist and will admit. Lab Data: Labs: Lab Results 10/17/20 10/17/20 10/17/20 Range/Units 20:48 20:48 20:48 WBC 11.8 H (4.0-10.0) 10^3/ uL RBC 3.40 L (4.1-5.3) 10^6/u L Hgb 9.8 L (11.7-16.6) g/dL Hct 29.5 L (42.0-52.0) % MCV 86.8 (80-94) fL MCH 28.8 (28.0-34.0) pg MCHC 33.2 (30.0-36.0) g/dL RDW 15.8 H (12.1-15.1) % Plt Count 225 (130-400) 10^3/c mm MPV 10.4 (7.4-10.4) fL Neut % (Auto) 87.9 % Lymph % (Auto) 7.0 % Cooper % (Auto) 4.5 % Eos % (Auto) 0.0 % Baso % (Auto) 0.2 % Neut # (Auto) 10.35 H (1.8-7.7) 10^3/u L Lymph # (Auto) 0.8 (0.8-4.8) 10^3/u L Cooper # (Auto) 0.5 (0.2-0.9) 10^3/u L Eos # (Auto) 0.0 (0.0-0.8) 10^3/u L Baso # (Auto) 0.0 (0.0-0.1) 10^3/u L Nucleated RBC % (a uto) 0 % Nucleated RBCs # 0.0 /100WBC PT 17.80 H (12.1-14.9) SECO NDS INR 1.42 H (0.8-1.2) Sodium 130 L (136-145) mmol/L Potassium 4.0 (3.5-5.1) mmol/L Chloride 93 L (98-107) mmol/L Carbon Dioxide 24 (22-29) mmol/L Anion Gap 17.0 (5-19) BUN 22 (8-23) mg/dL Creatinine 1.6 H (0.7-1.2) mg/dL GFR Calculation Not Reportable Glucose 214 H (65-115) mg/dL Calculated Osmolal ity 280 L (285-295) mOsm/k g Lactate (0.5-2.2) mmol/L Calcium 8.5 (8.5-10.5) mg/dL Total Bilirubin 0.8 (0.15-1.2) mg/dL AST 20 (0-40) U/L ALT 14 (0-41) U/L Alkaline Phosphata se 179 H (40-130) IU/L Total Protein 7.2 (6.6-8.7) g/dL Albumin 3.0 L (3.5-5.2) g/dL Globulin 4.2 (1.3-4.6) g/dL Influenza Type A A g (Negative) Influenza Type B A g (Negative) SARS-CoV-2 Ag (Rap id) (Negative) 10/17/20 10/17/20 10/17/20 Range/Units 20:48 21:18 21:18 WBC (4.0-10.0) 10^3/ uL RBC (4.1-5.3) 10^6/u L Hgb (11.7-16.6) g/dL Hct (42.0-52.0) % MCV (80-94) fL MCH (28.0-34.0) pg MCHC (30.0-36.0) g/dL RDW (12.1-15.1) % Plt Count (130-400) 10^3/c mm MPV (7.4-10.4) fL Neut % (Auto) % Lymph % (Auto) % Cooper % (Auto) % Eos % (Auto) % Baso % (Auto) % Neut # (Auto) (1.8-7.7) 10^3/u L Lymph # (Auto) (0.8-4.8) 10^3/u L Cooper # (Auto) (0.2-0.9) 10^3/u L Eos # (Auto) (0.0-0.8) 10^3/u L Baso # (Auto) (0.0-0.1) 10^3/u L Nucleated RBC % (a uto) % Nucleated RBCs # /100WBC PT (12.1-14.9) SECO NDS INR (0.8-1.2) Sodium (136-145) mmol/L Potassium (3.5-5.1) mmol/L Chloride (98-107) mmol/L Carbon Dioxide (22-29) mmol/L Anion Gap (5-19) BUN (8-23) mg/dL Creatinine (0.7-1.2) mg/dL GFR Calculation Glucose (65-115) mg/dL Calculated Osmolal ity (285-295) mOsm/k g Lactate 2.2 (0.5-2.2) mmol/L Calcium (8.5-10.5) mg/dL Total Bilirubin (0.15-1.2) mg/dL AST (0-40) U/L ALT (0-41) U/L Alkaline Phosphata se (40-130) IU/L Total Protein (6.6-8.7) g/dL Albumin (3.5-5.2) g/dL Globulin (1.3-4.6) g/dL Influenza Type A A g Negative (Negative) Influenza Type B A g Negative (Negative) SARS-CoV-2 Ag (Rap id) Negative (Negative) EKG Data^: EKG 1: Attestation: I personally reviewed and interpreted this EKG as follows: EKG Interpretation Date: 10/17/20 EKG interpretation time: 21:07 Interpretation: nsr hr [address] or t wave abnormalities qrs 154 qtc 451 Discharge Plan Discharge Patient Disposition: Admitted As Inpatient Admit Provider: Stewart Walsh Clinical Impression: Weakness Fever Qualifiers: Fever type: unspecified Qualified Code(s): R50.9 - Fever, unspecified Condition: Stable Coding Level of Care Code ED Pilot Plant Technician for Chg Fwd Exam Comprehensive
[2020-10-17 21:04] LABS: Basophils % 0.2 %; Hematocrit 29.5 % (42.0-52.0); Hemoglobin 9.8 g/dL (11.7-16.6); Lymphocytes # 0.8 10^3/uL (0.8-4.8); Mean Corpuscular HGB Conc 33.2 g/dL (30.0-36.0); Mean Corpuscular Hemoglobin 28.8 pg (28.0-34.0); Mean Corpuscular Volume 86.8 fL (80-94); Mean Platelet Volume 10.4 fL (7.4-10.4); Monocytes # 0.5 10^3/uL (0.2-0.9); Monocytes % 4.5 %; Neutrophils # 10.35 10^3/uL (1.8-7.7); Neutrophils % 87.9 %; Nucleated Red Blood Cells % 0 %; Platelet Count 225 10^3/cmm (130-400); Red Cell Distribution Width 15.8 % (12.1-15.1); White Blood Count 11.8 10^3/uL (4.0-10.0)
[2020-10-17 21:13] LABS: INR 1.42 (0.8-1.2)
[2020-10-17 21:19] LABS: Alanine Aminotransferase 14 U/L (0-41); Alkaline Phosphatase 179 IU/L (40-130); Aspartate Amino Transferase 20 U/L (0-40); Blood Urea Nitrogen 22 mg/dL (8-23); Calcium 8.5 mg/dL (8.5-10.5); Carbon Dioxide 24 mmol/L (22-29); Chloride 93 mmol/L (98-107); Globulin 4.2 g/dL (1.3-4.6); Glucose 214 mg/dL (65-115); Osmolality Calculated 280 mOsm/kg (285-295); Sodium 130 mmol/L (136-145); Total Bilirubin 0.8 mg/dL (0.15-1.2); Total Protein 7.2 g/dL (6.6-8.7)
[2020-10-17 21:20] LABS: Lactate (Lactic Acid level) 2.2 mmol/L (0.5-2.2)
[2020-10-17] MEDS: acetaminophen 325 mg Tablet 650 MG PO (21:24)
[2020-10-17] MEDS: piperacillin-tazobactam 3.375 GM in sodium chloride 0.9% (plus) 50 ML IV (21:26)
[2020-10-17 21:27] VITALS: BP 122/84; PULSE 100; RESP 27; O2SAT 94
[2020-10-17 21:46] LABS: Influenza A by IFA Negative (Negative); Influenza B by IFA Negative (Negative); SARS Covid-2 Antigen Negative (Negative)
[2020-10-17] MEDS: vancomycin 1,000 MG in sodium chloride 0.9% 250 ML 250 MG IV (22:15)
--- NOTE | 2020-10-17 22:41 | PM.HP ---
Providers/Chief Complaint Primary Care Provider: Jose Manuel Mooney MD Chief Complaint: SEPSIS History of Present Illness Rhett Cotto is a 79 year old male was recently discharged from the hospital after management of diabetic foot ulcer status post debridement by Dr. Espinoza he was discharged on Omnicef 1 week regimen, patient refused SNF placement, he also was diagnosed with fracture of T8-T11 spinous process fracture after a fall, patient also refused home health services. Full-thickness ulcer of right calcaneal area, stage II pressure ulcer of medial aspect of left gluteal region, follows up with wound care clinic. He is presenting today with chief complaint of generalized weakness and fever. Patient is not a reliable historian, he is not sure why he was brought to the hospital however as per the he was very weak and lethargic was not able to get up on his own he kept swelling himself in the bed with urine and feces, he was also experiencing shortness of breath at home, EMS gave him DuoNeb treatment, by the time I saw him he was not requiring any oxygenation he was saturating well on room air normal hemodynamics no acute respite distress, chest x-ray did not show any pneumonia or pulmonary edema changes, met sepsis criteria with fever and leukocytosis he has purulent cellulitis of right heel, he was given vancomycin and Zosyn in the ER, his creatinine and sodium seems to be around baseline 1.6 and 130 respectively, hemoglobin also at baseline, EKG showing sinus rhythm with PVCs Review of Systems Const: Reports: fever(s), chills, body aches and fatigue Eyes: Denies: change in vision ENMT: Denies: throat pain Card: Reports: swelling of feet/ankles, dyspnea on exertion and orthopnea Resp: Reports: dyspnea and non-productive cough GI: Denies: abdominal pain : Denies: flank pain Musc: Denies: neck pain Skin/Breast: Denies: rash Neuro: Denies: headache(s) Psych: Reports: sleeping more Endo: Denies: polyuria Rudi/Lymph: Denies: easy bruising All/Imm: Denies: urticaria Medications/Allergies Home Medications Medication Instructions Recorded Confirmed Last Taken Type furosemide 40 mg PO BID 30 Days #0 tab 04/09/20 10/17/20 10/17/20 Rx aspirin 81 mg PO DAILY 08/28/20 10/17/20 10/17/20 History spironolactone 25 mg PO DAILY 08/28/20 10/17/20 10/17/20 History metformin 500 mg PO BID 09/22/20 10/17/20 10/17/20 History omeprazole 20 mg PO DAILY 28 Days cap 09/22/20 10/17/20 10/17/20 Rx hydrocodone-acetaminophen 1 tab PO Q6H PRN 10/17/20 10/17/20 Unknown History levothyroxine 150 mcg PO DAILY 10/17/20 10/17/20 Unknown History levothyroxine 150 mcg PO DAILY 10/17/20 10/17/20 Unknown History potassium chloride 20 meq PO BID 10/17/20 10/17/20 10/17/20 History Allergies Allergy/AdvReac Type Severity Reaction Status Date / Time No Known Allergies Allergy Verified 03/29/20 15:40 PFSH Acute PFSH: Medical History (Updated 10/18/20 @ 01:23 by Stewart Walsh MD) Anasarca ASHD (arteriosclerotic heart disease) Cardiomyopathy CHF (congestive heart failure) Cleft palate and cleft lip Diabetes Dyslipidemia HTN (hypertension) Myocardial infarction Preoperative clearance Surgical History Cleft palate Surgically repaired History of tonsillectomy Leg fracture, left Lower leg fractures repaired with rods and bone grafts S/P PTCA (percutaneous transluminal coronary angioplasty) Family History Other Diabetes Social History Smoking and tobacco status: never smoked Alcohol intake: current Alcohol intake frequency: holidays/special occasions only Household members: spouse Marital status: Vitals/I&O/Wt Last Vital Signs Temp 101.4 F H 10/17/20 20:21 Pulse 100 10/17/20 21:27 Resp 27 H 10/17/20 21:27 BP 122/84 10/17/20 21:27 Pulse Ox 94 10/17/20 21:27 10/17/20 10/17/20 10/17/20 06:59 14:59 22:59 Intake Total 50 / 50 Balance 50 / 50 Weight last 48 hrs Weight 78.018 kg Physical Exam Narrative: EXAM NARRATIVE: Patient was laying in supine position without any active respite distress, appears stated age, does not look fluid overloaded or dehydrated He was sleeping when I entered the room however when awake he did not tell me much detail about his presentation in the hospital Lower extremity edema with skin wrinkling with purulent cellulitis of right heel, well-healed lesions of bilateral lower extremities noted above ankle, left ankle black eschar no active drainage, both legs are warm no signs of ischemia S1, S2, no murmur appreciated Saturating well on room air no audible wheezing or stridor, bilateral breath sounds with rhonchi at the bases Abdomen soft nontender bowel sounds present Patient has soiled himself with urine, he is not cooperating for Bustos catheter placement and urine sample No acute neurological deficits he is following my commands he rolled over to his left side, I did not appreciate any pressure ulcer on his gluteal cleft on left side Awake alert oriented to himself only Data : 10/17/20 20:48 10/17/20 20:48 Micro: Microbiology 10/17/20 20:48 Blood Culture - Preliminary Blood SPECIMEN COLLECTED 10/17/20 20:55 Blood Culture - Preliminary Blood SPECIMEN COLLECTED A&P Assessment and plan (1) Sepsis: Status: Acute (2) Fever: Status: Acute Qualifiers: Fever type: unspecified Qualified Code(s): R50.9 - Fever, unspecified (3) Weakness: Status: Acute (4) Venous stasis ulcers of both lower extremities: Status: Acute (5) Cellulitis: Status: Acute (6) Hypothyroid: Status: Acute (7) Anemia: Status: Acute Qualifiers: Anemia type: due to chronic kidney disease Chronic kidney disease stage: unspecified stage Qualified Code(s): N18.9 - Chronic kidney disease, unspecified; D63.1 - Anemia in chronic kidney disease (8) CKD (chronic kidney disease): Status: Acute Qualifiers: Chronic kidney disease stage: stage 3 (moderate) Qualified Code(s): N18.3 - Chronic kidney disease, stage 3 (moderate) (9) Type 2 diabetes mellitus: Status: Acute Qualifiers: Diabetes mellitus fci insulin use: without assistant terminal manager use Diabetes mellitus complication status: without complication Qualified Code(s): E11.9 - Type 2 diabetes mellitus without complications Additional A&P Information Sepsis Criteria met with fever, leukocytosis, source of infection right heel purulent cellulitis History of venous stasis dermatitis and diabetic foot ulcers Started on vancomycin and Zosyn will request blood cultures avoid obtaining wound cultures Normal hemodynamic I do believe he will need wound debridement, kindly consult podiatry/general surgery in the morning Will request ESR and CRP and foot x-ray to rule out osteomyelitis Generalized weakness I do believe this is related to sepsis I do not suspect meningitis at this point No signs of stroke is requesting placement to long-term nursing facility at [facility] We will get physical therapy evaluation Chronic kidney disease without acute exacerbation creatinine seems to be around baseline Chronic anemia no acute exacerbation hemoglobin seems to be around baseline Hypothyroidism: Continue levothyroxine CHF without acute exacerbation I will continue him on Lasix 40 twice daily, hold spironolactone Chronic hyponatremia, baseline sodium ranges between 1 28-1 32 I would not request further hyponatremia work-up Diabetes, will start moderate dose sliding scale Full code Cardiac/consistent carb diet DVT prophylaxis Heparin Attestations Medical Necessity Statement*: Anticipating stay in the hospital cross more than 2 midnights for sepsis, purulent cellulitis, hyponatremia Time Spent in Patient Care: (>than 50% of time spent in counselling and/or direct pt care on unit). 50mins Coding Level of Care Code Acute Makeup Artist for Chg Fwd Diagnoses Sepsis A41.9 Fever R50.9 Fever type: unspecified Weakness R53.1 Venous stasis ulcers of both lower extremities I83.019; I83.029; L97.919; L97.929 Cellulitis L03.90 Hypothyroid E03.9 Anemia N18.9; D63.1 Anemia type: due to chronic kidney disease Chronic kidney disease stage: unspecified stage CKD (chronic kidney disease) N18.3 Chronic kidney disease stage: stage 3 (moderate) Type 2 diabetes mellitus E11.9 Diabetes mellitus assistant terminal manager insulin use: without fci use Diabetes mellitus complication status: without complication
[2020-10-17 23:08] LABS: C Reactive Protein 59.8 mg/L (0.0-4.9)
[2020-10-17 23:30] VITALS: BP 121/76; PULSE 86; RESP 20; TEMP 37.3; O2SAT 95
[2020-10-17 23:36] VITALS: BP 121/76; PULSE 84; RESP 21; TEMP 37.3; O2SAT 93
[2020-10-17 23:41] LABS: Erythrocyte Sedimentation Rate 112 mm/hr (0-10)
[2020-10-18] VITALS (10 sets, daily range): BP systolic 109–129; BP diastolic 65–84; PULSE 73–85; RESP 16–20; TEMP 36.2–37.2; O2SAT 93–98
--- NOTE | 2020-10-18 01:30 | XR_ITS ---
WS: [id number] Right foot, AP and lateral portable, 10/18/2020 Clinical Data: Purulent cellulitis ESR 112 Comparison: None. Findings: No new fractures or dislocations are seen. No bone destruction or erosion is noted. The soft tissues are normal. There is a bunion at the head of the right first metatarsal. There are healed fractures of the distal second and third metatarsals. There are flexion deformities of the second through fifth toes. There is a plantar spur and an Achilles spur. There are vascular calcifications in the zepeda of the small a rteries. XR/XR foot RT 2V 50303 Impression: 1. Negative for bone destruction or erosion. 2. Old fractures of the distal right second and third metatarsals. 3. Bunion at the head of the right first metatarsal.
--- NOTE | 2020-10-18 01:32 | PC.PHAR ---
Vancomycin is dosed at 1250mg IVPB every 24 hours to produce a predicted trough level of 17.00 (population based pharmacokinetic analysis). A trough level has been ordered from the lab to be obtained before the fourth dose to confirm and adjust if needed. The Zosyn is dosed at 3.375gm IVPB every 8 hours on basis of the creatinine clearance of 39.62.
[2020-10-18] MEDS: heparin 5,000 unit/mL INJ 1 mL 5000 UNIT SUBCUT ×3 (02:41→17:44)
[2020-10-18] MEDS: piperacillin-tazobactam 3.375 GM in sodium chloride 0.9% (plus) 50 ML IV ×3 (06:00→23:02)
[2020-10-18 06:57] LABS: Basophils % 0.1 %; Hematocrit 29.9 % (42.0-52.0); Hemoglobin 9.7 g/dL (11.7-16.6); Lymphocytes # 0.7 10^3/uL (0.8-4.8); Lymphocytes % 6.5 %; Mean Corpuscular HGB Conc 32.4 g/dL (30.0-36.0); Mean Corpuscular Hemoglobin 28.8 pg (28.0-34.0); Mean Corpuscular Volume 88.7 fL (80-94); Mean Platelet Volume 10.8 fL (7.4-10.4); Monocytes # 0.2 10^3/uL (0.2-0.9); Monocytes % 1.5 %; Neutrophils # 9.22 10^3/uL (1.8-7.7); Neutrophils % 91.3 %; Nucleated Red Blood Cells % 0 %; Platelet Count 204 10^3/cmm (130-400); Red Blood Count 3.37 10^6/uL (4.1-5.3); Red Cell Distribution Width 15.8 % (12.1-15.1); White Blood Count 10.1 10^3/uL (4.0-10.0)
[2020-10-18 07:21] LABS: Blood Urea Nitrogen 26 mg/dL (8-23); Calcium 8.4 mg/dL (8.5-10.5); Carbon Dioxide 26 mmol/L (22-29); Chloride 95 mmol/L (98-107); Glucose 286 mg/dL (65-115); Osmolality Calculated 287 mOsm/kg (285-295); Sodium 131 mmol/L (136-145)
[2020-10-18 08:19] LABS: Glucose Point of Care 289 mg/dL (70-110)
[2020-10-18] MEDS: aspirin 81 mg Chew Tablet PO (10:24)
[2020-10-18] MEDS: sennosides-docusate Tablet 1 TAB PO (10:24)
[2020-10-18] MEDS: potassium chloride ER 10 mEq Tablet 20 MEQ PO (10:25)
[2020-10-18] MEDS: levothyroxine 75 mcg Tablet 150 MCG PO (10:25)
[2020-10-18] MEDS: pantoprazole DR 40 mg Tablet PO (10:25)
[2020-10-18] MEDS: FUROsemide 40 mg Tablet PO ×2 (10:26→17:44)
[2020-10-18] MEDS: polyethylene glycol 3350 Pkt 17 gm PO (10:26)
[2020-10-18 10:39] LABS: Glucose Point of Care 392 mg/dL (70-110)
--- NOTE | 2020-10-18 15:12 | PC.SOCIAL ---
Patient states that Dr. Mooney call the hospital and okayed it for him to not have follow up appointment with him.
[2020-10-18 17:12] LABS: Glucose Point of Care 161 mg/dL (70-110)
--- NOTE | 2020-10-18 19:20 | P.PN_ITS ---
Subjective Subjective: Interval history: Doing alright. Denies chest pain or pressure. No trouble breathing. Denies significant pain in lower extremities. Daughter at bedside. At home walks with a walker. His changes his dressings for him daily. States were not told to put any medication or ointment, and have just been changing dry dressings. Vitals/I&O/Wt Last Vital Signs Temp 97.1 F L 10/18/20 15:20 Pulse 83 10/18/20 15:20 Resp 18 10/18/20 15:20 BP 116/74 10/18/20 15:20 Pulse Ox 97 10/18/20 15:20 10/18/20 10/18/20 10/18/20 06:59 14:59 22:59 Intake Total 250 / 300 770 / 770 50 / 820 Balance 250 / 300 770 / 770 50 / 820 Weight last 48 hrs Weight 78.018 kg Physical Exam Const: COMMON NORMALS: no acute distress and patient oriented x3 GENERAL APPEARANCE: frail appearing HENMT: COMMON NORMALS: oropharynx normal Neck/C-Spine: COMMON NORMALS: no JVD Resp: COMMON NORMALS: normal respiratory effort and clear to auscultation bilaterally AUSCULTATION: clear to auscultation bilaterally Cardio: COMMON NORMALS: no JVD, regular rhythm, S1 normal heart sound present, S2 normal heart sound present and No murmurs present (Cardio) RHYTHM: regular rhythm HEART SOUNDS: S1 normal heart sound present and S2 normal heart sound present GI: COMMON NORMALS: Normal to inspection, nondistended, normoactive bowel sounds present, Soft to palpation and non-tender PALPATION: Yes Soft to palpation Extremity: COMMON NORMALS: no joint enlargement and no pedal edema OTHER: Left heel large ulcer, gangrene, mostly dry, but in the center with some d rainage. Difficult to say whether cornified tissue or some bone exposure. Right heel smaller ulcer, about 2-1/2 cm in diameter, no gangrene, pale, no drainage or surrounding erythema. Smaller ulcer about 1.5 cm on lateral plantar anterior foot, similarly pale, no drainage. No surrounding erythema. Neuro: COMMON NORMALS: patient oriented x3 and moves all extremities Skin: OTHER: Ulcers as above. Dry scaly skin of lower extremities. Data : 10/18/20 06:28 10/18/20 06:28 Micro: Microbiology 10/17/20 20:48 Blood Culture - Preliminary Blood SPECIMEN COLLECTED 10/17/20 20:55 Blood Culture - Preliminary Blood SPECIMEN COLLECTED A&P Assessment and plan (1) Sepsis: Left lower extremity infection, chronic wounds left heel, right heel and forefoot on the plantar surface. Urinalysis pending. Continue Zosyn clindamycin. Will get podiatry consultation for debridement, will discuss with daughter concerned that there may be bone exposure on the left heel as well. X-ray unable to rule out osteomyelitis. Would benefit from additional assessment by MRI. They are in agreement. Follow-up blood cultures. Status: Acute (2) Fever: Status: Acute Qualifiers: Fever type: unspecified Qualified Code(s): R50.9 - Fever, unspecified (3) Weakness: Possibly secondary to acute infection, also noted history of cardiomyopathy, CHF. Today he feels better already. Status: Acute (4) Venous stasis ulcers of both lower extremities: Status: Acute (5) Cellulitis: Status: Acute (6) Hypothyroid: Status: Acute (7) Anemia: Status: Acute Qualifiers: Anemia type: due to chronic kidney disease Chronic kidney disease stage: unspecified stage Qualified Code(s): N18.9 - Chronic kidney disease, unspecified; D63.1 - Anemia in chronic kidney disease (8) CKD (chronic kidney disease): Status: Acute Qualifiers: Chronic kidney disease stage: stage 3 (moderate) Qualified Code(s): N18.3 - Chronic kidney disease, stage 3 (moderate) (9) Type 2 diabetes mellitus: Hyperglycemia: Insulin sliding scale, monitor glucose. Consistent carbohydrate diet. Status: Acute Qualifiers: Diabetes mellitus complication status: without complication Diabetes mellitus sports development officer insulin use: without shelter use Qualified Code(s): E11.9 - Type 2 diabetes mellitus without complications Additional A&P Information CHF without acute exacerbation continue Lasix 40 twice daily, hold spironolactone Chronic hyponatremia Attestations Medical Necessity Statement*: Continue admission for assessment management of nonhealing wounds of lower extremities, gangrene of the left heel, sepsis, generalized weakness. Coding Level of Care Code Acute Respiratory Therapy Technician for [facility] Diagnoses Sepsis A41.9 Fever R50.9 Fever type: unspecified Weakness R53.1 Venous stasis ulcers of both lower extremities I83.019; I83.029; L97.919; L97.929 Cellulitis L03.90 Hypothyroid E03.9 Anemia N18.9; D63.1 Anemia type: due to chronic kidney disease Chronic kidney disease stage: unspecified stage CKD (chronic kidney disease) N18.3 Chronic kidney disease stage: stage 3 (moderate) Type 2 diabetes mellitus E11.9 Diabetes mellitus complication status: without complication Diabetes mellitus sports development officer insulin use: without shelter use
[2020-10-18 20:55] LABS: Glucose Point of Care 158 mg/dL (70-110)
[2020-10-18] MEDS: vancomycin 1,250 MG/250 ML PIGGYBACK 250 MG IV (21:15)
[2020-10-18] MEDS: HYDROcodone-acetaminophen 5-325 mg Tablet 1 TAB PO (21:17)
[2020-10-19] VITALS (9 sets, daily range): BP systolic 112–126; BP diastolic 71–79; PULSE 73–87; RESP 17–20; TEMP 36.1–36.9; O2SAT 95–98
[2020-10-19] MEDS: heparin 5,000 unit/mL INJ 1 mL 5000 UNIT SUBCUT ×3 (02:47→17:19)
--- NOTE | 2020-10-19 05:00 | USCV_ITS ---
Rhett Cotto Age: 79 Gender: M : 1940 Exam Date: 10/19/2020 06:48 Ordering Phys: Edgar Hernandez MD Technologist: Shakila Levy Exam Location: [facility] [place] Indication: NON HEALING ULCERS Risk Factors: Previous Vascular Surgery: RIGHT LEFT Waveform Velocity (cm/s) Velocity (cm/s) Waveform Triphasic 46.7 Iliac Prox 59.2 Triphasic Triphasic 56.4 Iliac Mid 57.5 Triphasic Triphasic 61.9 Iliac Distal 81.6 Triphasic Triphasic 70.1 SURVEYOR'S ASSISTANT 94.8 Triphasic Triphasic 67.5 SFA Prox 83.7 Monophasic Triphasic 60.7 SFA Mid 90.6 Monophasic Triphasic 52.8 SFA Dist 55.9 Monophasic Triphasic 49.2 POP 36.6 Monophasic Monophasic 67.7 RETINA SUBSPECIALIST 25.8 Monophasic Monophasic 23.5 DPA 29.5 Monophasic 0.9 NICHELLE 0.5 FINDINGS RT BRACH = 125, LT BRACH = 120 RT RETINA SUBSPECIALIST 118, RT DPA = 110 LT RETINA SUBSPECIALIST 60, LTA = N/A 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 CONCLUSIONS 1. Mildly diminished resting NICHELLE on the right side . 2. Abnormal Doppler waveform in dorsalis pedis artery on the right side, may suggest collateral filling in this vessel 3. Abnormal resting NICHELLE on the left side, suggestive of moderately severe peripheral artery disease possibly involving the superficial femoral artery. 4. 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
[2020-10-19 06:24] LABS: Basophils % 0.1 %; Hematocrit 30.6 % (42.0-52.0); Hemoglobin 10.1 g/dL (11.7-16.6); Lymphocytes # 1.1 10^3/uL (0.8-4.8); Lymphocytes % 7.8 %; Mean Corpuscular Hemoglobin 28.6 pg (28.0-34.0); Mean Corpuscular Volume 86.7 fL (80-94); Mean Platelet Volume 11.3 fL (7.4-10.4); Monocytes # 0.7 10^3/uL (0.2-0.9); Monocytes % 5.2 %; Neutrophils # 12.02 10^3/uL (1.8-7.7); Neutrophils % 86.3 %; Nucleated Red Blood Cells % 0 %; Platelet Count 210 10^3/cmm (130-400); Red Blood Count 3.53 10^6/uL (4.1-5.3); Red Cell Distribution Width 16.1 % (12.1-15.1); White Blood Count 13.9 10^3/uL (4.0-10.0)
[2020-10-19 06:54] LABS: Blood Urea Nitrogen 51 mg/dL (8-23); Calcium 8.2 mg/dL (8.5-10.5); Carbon Dioxide 21 mmol/L (22-29); Chloride 97 mmol/L (98-107); Glucose 210 mg/dL (65-115); Osmolality Calculated 292 mOsm/kg (285-295); Sodium 131 mmol/L (136-145)
[2020-10-19] MEDS: piperacillin-tazobactam 3.375 GM in sodium chloride 0.9% (plus) 50 ML IV ×2 (07:02→14:20)
[2020-10-19 07:04] LABS: Glucose Point of Care 221 mg/dL (70-110)
[2020-10-19] MEDS: levothyroxine 75 mcg Tablet 150 MCG PO (08:24)
[2020-10-19] MEDS: FUROsemide 40 mg Tablet PO ×2 (08:24→17:19)
[2020-10-19] MEDS: pantoprazole DR 40 mg Tablet PO (08:24)
[2020-10-19] MEDS: aspirin 81 mg Chew Tablet PO (08:24)
[2020-10-19] MEDS: potassium chloride ER 10 mEq Tablet 20 MEQ PO (08:24)
[2020-10-19 10:43] LABS: Glucose Point of Care 191 mg/dL (70-110)
[2020-10-19] MEDS: HYDROmorphone 1 mg/mL INJ 1 mL 0.4 MG IVP ×2 (14:17→20:44)
--- NOTE | 2020-10-19 16:01 | P.CONIM_ITS ---
Providers/Reason For Consult Consulting Physican/Specialty*: Mauri Perez Reason for Consult*: diabetic ulcers Attending Physician: Edgar Hernandez Primary Care Provider: Jose Manuel Mooney MD History of Present Illness History of Present Illness Rhett Cotto is a 79 year old male admitted for sepsis and malaise. I was consulted for evaluation of lower extremity cellulitis and wounds specifically left heel ulcer that has significant odor and drainage with concern of involvem ent down to bone.Patient is not a good historian I did speak with his Vivi she states that the heel ulcer has been present since approximately August 2020. Patient denies any subjective nausea, vomiting, fever, chills, shortness of breath or chest pain. Review of Systems General: Reports: 10 or more systems reviewed and unremarkable except in HPI and below Const: Denies: fever(s) or chills Card: Denies: chest pain or palpitations Resp: Denies: productive cough GI: Denies: abdominal pain, nausea or vomiting : Denies: flank pain Musc: Reports: extremity swelling, joint pain, joint stiffness, limited range of motion and deformity Skin/Breast: Reports: erythema, skin tenderness, skin swelling, sores, dry skin, nail changes and change in hair Neuro: Reports: numbness in extremities, sensory changes and difficulty walking Psych: Denies: suicidal ideation Rudi/Lymph: Denies: easy bruising Meds/Allergies Home Medications and Allergies Home Medications Medication Instructions Recorded Confirmed Last Taken Type furosemide 40 mg PO BID 30 Days #0 tab 04/09/20 10/17/20 10/17/20 Rx aspirin 81 mg PO DAILY 08/28/20 10/17/20 10/17/20 History spironolactone 25 mg PO DAILY 08/28/20 10/17/20 10/17/20 History metformin 500 mg PO BID 09/22/20 10/17/20 10/17/20 History omeprazole 20 mg PO DAILY 28 Days cap 09/22/20 10/17/20 10/17/20 Rx hydrocodone-acetaminophen 1 tab PO Q6H PRN 10/17/20 10/17/20 Unknown History levothyroxine 150 mcg PO DAILY 10/17/20 10/17/20 Unknown History levothyroxine 150 mcg PO DAILY 10/17/20 10/17/20 Unknown History potassium chloride 20 meq PO BID 10/17/20 10/17/20 10/17/20 History Allergies Allergy/AdvReac Type Severity Reaction Status Date / Time No Known Allergies Allergy Verified 03/29/20 15:40 Current Medications Current Medications Generic Name Dose Route Start Last Admin Trade Name Freq PRN Reason Stop Dose Admin Aspirin 81 mg 10/18/20 09:00 10/19/20 08:24 Aspirin 81 Mg Chew Tablet PO 81 mg DAILY NICHOLAS Administration Furosemide 40 mg 10/18/20 09:00 10/19/20 08:24 Furosemide 40 Mg Tablet PO 40 mg BID NICHOLAS Administration Heparin Sodium (Beef Lung) 5,000 unit 10/18/20 01:20 10/19/20 08:24 Heparin 5,000 Unit/Ml Inj 1 Ml SUBCUT 5,000 unit Q8H NICHOLAS Administration Hydromorphone HCl 0.4 mg 10/19/20 01:47 10/19/20 14:17 Hydromorphone 1 Mg/Ml Inj 1 Ml IVP 0.4 mg Q4H PRN Administration pain Piperacillin Sod/Tazobactam 50 mls @ 12.5 mls/hr 10/18/20 05:30 10/19/20 14:20 Sod 3.375 gm/ Sodium Chloride IV 12.5 mls/hr Q8H NICHOLAS Administration Protocol As Directed Vancomycin/PEG/NADA/Lysine/Water 1,250 mg in 250 mls @ 250 mls/hr 10/18/20 22:00 10/18/20 23:05 Vancocin IV Infused Q24H NICHOLAS Infusion Insulin Aspart 0 unit 10/18/20 08:00 10/19/20 12:28 Insulin Aspart 100 Unit/1 Ml SUBCUT 6 unit WM&BEDTIME NICHOLAS Administration Protocol Levothyroxine Sodium 150 mcg 10/18/20 09:00 10/19/20 08:24 Levothyroxine 75 Mcg Tablet PO 150 mcg DAILY NICHOLAS Administration Pantoprazole Sodium 40 mg 10/18/20 09:00 10/19/20 08:[address] 40 Mg Tablet PO 40 mg DAILY NICHOLAS Administration Polyethylene Glycol 17 gm 10/18/20 09:00 10/19/20 08:25 Polyethylene Glycol 3350 Pkt 17 Gm PO Not Given DAILY NICHOLAS Potassium Chloride 20 meq 10/18/20 09:00 10/19/20 08:24 Potassium Chloride Er 10 Meq Tablet PO 20 meq DAILY NICHOLAS Administration Senna/Docusate Sodium 1 tab 10/18/20 09:00 10/19/20 08:25 Sennosides-Docusate Tablet PO Not Given DAILY NICHOLAS PFSH Acute PFSH: Medical History (Updated 10/19/20 @ 18:27 by Mauri Perez DPM) Anasarca ASHD (arteriosclerotic heart disease) Cardiomyopathy CHF (congestive heart failure) Cleft palate and cleft lip Diabetes Dyslipidemia HTN (hypertension) Myocardial infarction Preoperative clearance Surgical History Cleft palate Surgically repaired History of tonsillectomy Leg fracture, left Lower leg fractures repaired with rods and bone grafts S/P PTCA (percutaneous transluminal coronary angioplasty) Family History Other Diabetes Social History Smoking and tobacco status: never smoked Alcohol intake: current Alcohol intake frequency: holidays/special occasions only Household members: spouse Marital status: Vitals/I&O/Wt Last Vital Signs Temp 97.0 F L 10/19/20 14:33 Pulse 74 10/19/20 14:33 Resp 17 10/19/20 14:33 BP 116/77 10/19/20 14:33 Pulse Ox 97 10/19/20 14:33 10/19/20 10/19/20 10/19/20 06:59 14:59 22:59 Intake Total 772 / 2072 490 / 490 Output Total 415 / 1015 Balance 357 / 1057 490 / 490 Weight last 48 hrs Weight 172 lb Physical Exam Narrative: EXAM NARRATIVE: GENERAL: Patient is alert and oriented ?3 and in no acute distress. The following is a focused bilateral lower extremity exam. VASCULAR: Dorsalis pedis palpable posterior tibial arteries palpable. Capillary refill time less than 5 seconds to the distal hallux bilaterally. Calf is supple and nontender proximally and distally. Pitting edema to lower extremities left greater than right. Diminished pedal hair growth bilaterally. NEUROLOGICAL: Protective sensation intact 0/10 sites, tested with [place] Denise monofilament to bilateral feet. DERMATOLOGICAL: Venous stasis ulceration at the left lateral distal leg is stable with scab covering no purulent drainage. Cellulitis to the distal one third of the left leg source is from the left heel. Extensive wound to the left plantar heel with devitalized epidermis, dermis subcutaneous tissue and fat layer, unable to probe directly to bone clinically this was uncomfortable for the patient. Left heel wound measures 5 cm x 4 cm x 0.5 cm with purulent drainage and foul odor. Wound to the right plantar heel measures 2.5 cm x 2.3 cm x 0.2 cm without purulent drainage or erythema distal not probe, tunnel or undermine. Diffusely dry skin to lower extremity integument, dystrophic nails x10. Stasis dermatitis at the right lower leg there is no warmth. MUSCULOSKELETAL: Tenderness at left heel. There is no eschar there is dark devitalized soft wound bed not able to probe directly to bone. Hammertoe deformities 2 through 5 bilaterally are reducible. Ankle joint dorsiflexion is to neutral. No pain with posterior calf squeeze bilaterally. Data Micro: Micro: Microbiology 10/17/20 20:55 Blood Culture - Pr eliminary Blood Corynebacterium species Gram Negative R ods 10/17/20 20:48 Blood Culture - Pr eliminary Blood NEGATIVE TO VELMA E Other Data: Other data: History of heel wounds from August this year. Also history of infections involving toes successfully treated with antibiotics and local wound care modalities at wound care clinic. ESR 112 10/17 WBC 13.9 10/19 Blood culture 10/17/2020 shows gram-negative rods and Corynebacterium X-ray negative for osteomyelitis soft tissue emphysema or foreign body. Arterial studies done 09/23/2020 US/[place] [id number] IMPRESSION: 1. No stenosis or occlusion. 2. Monophasic waveforms in the right mid superficial femoral artery and below. 3. Monophasic waveforms in the left distal superficial femoral artery and below. 4. Unable to evaluate the bilateral posterior tibial arteries due to overlying bandages. 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 -N.p.o. at midnight -Scheduled for surgical debridement left heel tomorrow morning -Ordered Podus heel offloading boots bilaterally from [facility] -Will need to offload bilateral heels at all times while at rest during this hospitalization as well as at discharge/transfer. PODUS boots will need to be utilized. -Currently receiving empiric IV antibiotics -Podiatry will follow -Planning on transfer to longterm facility in [place] Dr. 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
[2020-10-19 16:20] LABS: Glucose Point of Care 147 mg/dL (70-110)
--- NOTE | 2020-10-19 19:37 | P.PN_ITS ---
Subjective Subjective: Interval history: Today he is bothered somewhat by pain in his heel on the left side. Otherwise reports is breathing comfortably. Denies chest pain. No abdominal discomfort. Vitals/I&O/Wt Last Vital Signs Temp 97.0 F L 10/19/20 14:33 Pulse 74 10/19/20 14:33 Resp 17 10/19/20 14:33 BP 116/77 10/19/20 14:33 Pulse Ox 97 10/19/20 14:33 10/19/20 10/19/20 10/19/20 06:59 14:59 22:59 Intake Total 772 / 2072 490 / 490 290 / 780 Output Total 415 / 1015 Balance 357 / 1057 490 / 490 290 / 780 Weight last 48 hrs Weight 78.018 kg Physical Exam Const: COMMON NORMALS: no acute distress and patient oriented x3 GENERAL APPEARANCE: frail appearing HENMT: COMMON NORMALS: oropharynx normal Neck/C-Spine: COMMON NORMALS: no JVD Resp: COMMON NORMALS: normal respiratory effort and clear to auscultation bilaterally AUSCULTATION: clear to auscultation bilaterally Cardio: COMMON NORMALS: no JVD, regular rhythm, S1 normal heart sound present, S2 normal heart sound present and No murmurs present (Cardio) RHYTHM: regular rhythm HEART SOUNDS: S1 normal heart sound present and S2 normal heart sound present GI: COMMON NORMALS: Normal to inspection, nondistended, normoactive bowel sounds present, Soft to palpation and non-tender PALPATION: Yes Soft to palpation Extremity: COMMON NORMALS: no joint enlargement and no pedal edema OTHER: Left heel large ulcer, gangrene, mostly dry, but in the center with some drainage. Difficult to say whether cornified tissue or some bone exposure. Right heel smaller ulcer, about 2-1/2 cm in diameter, no gangrene, pale, no drainage or surrounding erythema. Smaller ulcer about 1.5 cm on lateral plantar anterior foot, similarly pale, no drainage. No surrounding erythema. Neuro: COMMON NORMALS: patient oriented x3 and moves all extremities Skin: OTHER: Ulcers as above. Dry scaly skin of lower extremities. Data : 10/19/20 05:15 10/19/20 05:15 Micro: Microbiology 10/19/20 16:00 Blood Culture - Preliminary Blood SPECIMEN COLLECTED 10/19/20 15:55 Blood Culture - Preliminary Blood SPECIMEN COLLECTED 10/17/20 20:55 Blood Culture - Preliminary Blood Corynebacterium species Gram Negative Rods 10/17/20 20:48 Blood Culture - Preliminary Blood NEGATIVE TO DATE A&P Assessment and plan (1) Sepsis: Persistent leukocytosis, worse today up to 13.9. Fever so far has not recurred. Bothered by pain in his left heel. Appreciate podiatry assessment. Limited bedside assessment due to pain. N.p.o. after midnight for additional OR exploration and debridement. Continue IV antibiotics, Zosyn, vancomycin. Left lower extremity infection, chronic wounds left heel, right heel and forefoot on the plantar surface. Urinalysis pending. Positive blood cultures, gram-positive coccus, gram-negative otoniel. Repeat blood cultures today. Follow-up. Status: Acute (2) Fever: Status: Acute Qualifiers: Fever type: unspecified Qualified Code(s): R50.9 - Fever, unspecified (3) Weakness: Possibly secondary to acute infection, also noted history of cardiomyopathy, CHF. Collect urine sample for UA. Bladder scan/straight cath as needed. Status: Acute (4) Venous stasis ulcers of both lower extremities: Status: Acute (5) Cellulitis: Status: Acute (6) Hypothyroid: Status: Acute (7) Anemia: Status: Acute Qualifiers: Anemia type: due to chronic kidney disease Chronic kidney disease stage: unspecified stage Qualified Code(s): N18.9 - Chronic kidney disease, unspecified; D63.1 - Anemia in chronic kidney disease (8) CKD (chronic kidney disease): Status: Acute Qualifiers: Chronic kidney disease stage: stage 3 (moderate) Qualified Code(s): N18.3 - Chronic kidney disease, stage 3 (moderate) (9) Type 2 diabetes mellitus: Hyperglycemia: Insulin sliding scale, monitor glucose. Consistent carbohydrate diet. Status: Acute Qualifiers: Diabetes mellitus complication status: without complication Diabetes mellitus care home insulin use: without care home use Qualified Code(s): E11.9 - Type 2 diabetes mellitus without complications Additional A&P Information CHF without acute exacerbation continue Lasix 40 twice daily, hold spironolactone Chronic hyponatremia Attestations Medical Necessity Statement*: Continue admission for assessment management of sepsis, left foot infection, chronic diabetic wounds, with positive blood cultures. Coding Level of Care Code Acute Traffic Circuit Engineer for Chg Fwd Exam Comprehensive Diagnoses Sepsis A41.9 Fever R50.9 Fever type: unspecified Weakness R53.1 Venous stasis ulcers of both lower extremities I83.019; I83.029; L97.919; L97.929 Cellulitis L03.90 Hypothyroid E03.9 Anemia N18.9; D63.1 Anemia type: due to chronic kidney disease Chronic kidney disease stage: unspecified stage CKD (chronic kidney disease) N18.3 Chronic kidney disease stage: stage 3 (moderate) Type 2 diabetes mellitus E11.9 Diabetes mellitus complication status: without complication Diabetes mellitus care home insulin use: without bed bug exterminator use
--- NOTE | 2020-10-19 22:56 | PC.NURSE ---
Accuchecks not crossing over into meditech, pt blood glucose 127.
--- NOTE | 2020-10-19 23:57 | PC.NURSE ---
PT refusing IV antibiotics. PT states Yall are over medicating me with antibiotics and that is why my bowels are all messed up Nurse educated Pt about the risk of infection and the severity of his foot wounds. PT stated you heard what I said ma'am, you will not hang another bag on that pole tonight, I dont want any more medication tonight unless it is my pain shot, and if that doctor cant fix my foot tomorrow I am going to [place] to see a real doctor Nurse educated Pt that the healing of his foot wounds would be a process and not something that can be fixed in one day. PT was becoming increasingly agitated and this nurse informed pt that he has the right to refuse medication. IV antibiotics Zosyn and Vancomycin charted as refused and Hospitalist Dr. Walsh notified.
[2020-10-20] VITALS (17 sets, daily range): BP systolic 95–129; BP diastolic 56–80; PULSE 68–90; RESP 12–24; TEMP 35.9–36.8; O2SAT 94–100
[2020-10-20 00:31] LABS: Glucose Point of Care 127 mg/dL (70-110)
[2020-10-20] MEDS: heparin 5,000 unit/mL INJ 1 mL 5000 UNIT SUBCUT ×2 (02:44→19:21)
[2020-10-20] MEDS: HYDROmorphone 1 mg/mL INJ 1 mL 0.4 MG IVP ×2 (03:00→22:06)
[2020-10-20 03:19] LABS: Add Urine Microscopic? YES; Bilirubin Urine Neg (Negative); Blood Urine Neg (Negative); Glucose Urine UA Norm (Normal); Ketones Urine Negative (Negative); Leukocyte Esterase Urine 1+ (Negative); Nitrate Urine Negative (Negative); Protein Urine Neg (Negative); Urine Appearance Clear (CLEAR); Urine Color Yellow (Yellow); Urobilinogen Urine Norm (Negative); pH Urine 5 (5-7)
[2020-10-20 03:20] LABS: RBC Urine 0-4 /hpf (0-2); Squamous Epithelial Cell Urine 0-4 /hpf (0-5)
[2020-10-20 03:21] LABS: Add Urine Culture? No; Mucus Urine N /hpf
[2020-10-20 05:57] LABS: Basophils % 0.4 %; Eosinophils # 0.1 10^3/uL (0.0-0.8); Eosinophils % 0.8 %; Hematocrit 27.8 % (42.0-52.0); Hemoglobin 8.8 g/dL (11.7-16.6); Lymphocytes # 1.7 10^3/uL (0.8-4.8); Mean Corpuscular HGB Conc 31.7 g/dL (30.0-36.0); Mean Corpuscular Hemoglobin 27.9 pg (28.0-34.0); Mean Corpuscular Volume 88.3 fL (80-94); Mean Platelet Volume 10.8 fL (7.4-10.4); Monocytes # 0.7 10^3/uL (0.2-0.9); Monocytes % 6.9 %; Neutrophils # 7.25 10^3/uL (1.8-7.7); Neutrophils % 74.2 %; Nucleated Red Blood Cells % 0 %; Platelet Count 265 10^3/cmm (130-400); Red Blood Count 3.15 10^6/uL (4.1-5.3); Red Cell Distribution Width 16.4 % (12.1-15.1); White Blood Count 9.8 10^3/uL (4.0-10.0)
[2020-10-20 06:18] LABS: Anion Gap 13.1 (5-19); Blood Urea Nitrogen 59 mg/dL (8-23); Calcium 8.7 mg/dL (8.5-10.5); Carbon Dioxide 27 mmol/L (22-29); Chloride 100 mmol/L (98-107); Glucose 136 mg/dL (65-115); Osmolality Calculated 301 mOsm/kg (285-295); Potassium 4.1 mmol/L (3.5-5.1); Sodium 136 mmol/L (136-145)
[2020-10-20 07:17] LABS: Glucose Point of Care 135 mg/dL (70-110)
[2020-10-20] MEDS: sodium chloride 0.9% 1,000 ML 30 ML IV (08:38)
--- NOTE | 2020-10-20 08:50 | P.HPUD_ITS ---
Surgery/Procedure H&P Update DATE OF PROCEDURE: October 20, 2020 DATE H&P PERFORMED: 10/19/20 H&P UPDATE INFORMATION: I have reviewed H&P completed within last 30 days, I have examined patient prior to procedure, No changes to prior documentation and H&P is in [facility] [place] on date indicated PREOP DIAGNOSIS: Lateral diabetic foot ulcers PLANNED PROCEDURE: Operation Date: 10/20/20 10:25 Proposed Procedures p Incision And Drainage(Left) - Mauri Perez DPM
--- NOTE | 2020-10-20 08:55 | P.ANESASSM_ITS ---
Pre-Anesthetic Assessment Pre-Anesthetic Assessment: Height/Weight: Height 1.75 m Weight 78.018 kg Temp Pulse Resp BP Pulse Ox 98.3 F 68 18 125/77 97 10/20/20 08:33 10/20/20 08:33 10/20/20 08:33 10/20/20 08:33 10/20/20 08:33 Preop Diagnosis: Lateral diabetic foot ulcers Proposed Procedure: Operation Date: 10/20/20 10:25 Proposed Procedures p Incision And Drainage(Left) - Mauri Perez DPM Familial anesthetic complications: none Was Beta Kaya taken within 24 hours: N/A Was Clonidine taken within 24 hours: N/A Last intake: Intake Last Liquid Date 10/19/20 Last Liquid Time 23:45 Last Solid Date 10/19/20 Last Solid Time 17:00 Social: Social History: No alcohol and No tobacco Exam: Pre-Anes Outpt Exam: alert, oriented x 3, clear to auscultation bilaterally and regular rate & rhythm Airway: Cervical ROM: WNL MP: 3 Dentition: False CV/HEM: CV/HEM: CAD (stents), HTN and NE Comments: EF 20% : : Chronic renal Insufficiency GI: GI: GERD Metabolic: Metabolic: DM, Hyperlipidemia and Thyroid Anesthetic Plan: ASA status: 4 Anesthesia: MAC Risk of > 500 ml blood loss (7ml/kg in children): No Meds/Allergies Current Medications: Current Medications Generic Name Dose Route Start Last Admin Trade Name Freq PRN Reason Stop Dose Admin Aspirin 81 mg 10/18/20 09:00 10/19/20 08:24 Aspirin 81 Mg Ch ew Tablet PO 81 mg DAILY NICHOLAS Administration Furosemide 40 mg 10/18/20 09:00 10/19/20 17:19 Furosemide 40 Mg Tablet PO 40 mg BID NICHOLAS Administration Heparin Sodium (Be ef Lung) 5,000 unit 10/18/20 01:20 10/20/20 02:44 Heparin 5,000 Un it/Ml Inj 1 Ml SUBCUT 5,000 unit Q8H NICHOLAS Administration Hydromorphone HCl 0.4 mg 10/19/20 01:47 10/20/20 03:00 Hydromorphone 1 Mg/Ml Inj 1 Ml IVP 0.4 mg Q4H PRN Administration pain Piperacillin Sod/T azobactam 50 mls @ 12.5 mls /hr 10/18/20 05:30 10/20/20 06:09 Sod 3.375 gm/ So dium Chloride IV Not Given Q8H NICHOLAS Protocol As Directed Vancomycin/PEG/NAD A/Lysine/Water 1,250 mg in 250 m ls @ 250 mls/hr 10/18/20 22:00 10/20/20 00:14 Vancocin IV Not Given Q24H NICHOLAS Sodium Chloride 1,000 mls @ 30 ml s/hr 10/20/20 08:30 10/20/20 08:38 Sodium Chloride 0.9% IV 10/21/20 08:29 30 mls/hr .Q24H NICHOLAS Administration Insulin Aspart 0 unit 10/18/20 08:00 10/19/20 22:57 Insulin Aspart 1 00 Unit/1 Ml SUBCUT Not Given WM&BEDTIME NICHOLAS Protocol Levothyroxine Sodi um 150 mcg 10/18/20 09:00 10/19/20 08:24 Levothyroxine 75 Mcg Tablet PO 150 mcg DAILY NICHOLAS Administration Pantoprazole Sodiu m 40 mg 10/18/20 09:00 10/19/20 08:[address] 40 Mg Tablet PO 40 mg DAILY NICHOLSA Administration Polyethylene Glyco l 17 gm 10/18/20 09:00 10/19/20 08:25 Polyethylene Gly col 3350 Pkt 17 Gm PO Not Given DAILY NICHOLAS Potassium Chloride 20 meq 10/18/20 09:00 10/19/20 08:24 Potassium Chlori de Er 10 Meq Table t PO 20 meq DAILY NICHOLAS Administration Senna/Docusate Sod ium 1 tab 10/18/20 09:00 10/19/20 08:25 Sennosides-Docus ate Tablet PO Not Given DAILY NICHOLAS PFSH Anesthesia PFSH: Medical History (Updated 10/19/20 @ 18:27 by Mauri Perez DPM) Anasarca ASHD (arteriosclerotic heart disease) Cardiomyopathy CHF (congestive heart failure) Cleft palate and cleft lip Diabetes Dyslipidemia HTN (hypertension) Myocardial infarction Preoperative clearance Surgical History Cleft palate Surgically repaired History of tonsillectomy Leg fracture, left Lower leg fractures repaired with rods and bone grafts S/P PTCA (percutaneous transluminal coronary angioplasty) Family History Other Diabetes Social History Smoking and tobacco status: never smoked Alcohol intake: current Alcohol intake frequency: holidays/special occasions only Household members: spouse Marital status: Data Anesthesia CBC & Chem 7: 10/20/20 05:38 10/20/20 05:38 Other Labs: Laboratory Results - last 48 hr 10/18/20 10/18/20 10/18/20 10:24 17:10 20:42 WBC RBC Hgb Hct MCV MCH MCHC RDW Plt Count MPV Neut % (Auto) Lymph % (Auto) [place] % (Auto) Eos % (Auto) Baso % (Auto) Neut # (Auto) Lymph # (Auto) [place] # (Auto) Eos # (Auto) Baso # (Auto) Nucleated RBC % (auto) Nucleated RBCs # Sodium Potassium Chloride Carbon Dioxide Anion Gap BUN Creatinine GFR Calculation Glucose POC Glucose 392 H 161 H 158 H Calculated Osmolality Calcium Urine Color Urine Appearance Urine pH Ur Specific [place] Urine Protein Urine Glucose (UA) Urine Ketones Urine Blood Urine Nitrate Urine Bilirubin Urine Urobilinogen Ur Leukocyte Esterase Urine RBC Urine WBC Ur Squamous Epith Cells Amorphous Sediment Urine Bacteria Urine Mucus Urine Yeast 10/19/20 10/19/20 10/19/20 05:15 05:15 06:39 WBC 13.9 H RBC 3.53 L Hgb 10.1 L Hct 30.6 L MCV 86.7 MCH 28.6 MCHC 33.0 RDW 16.1 H Plt Count 210 MPV 11.3 H Neut % (Auto) 86.3 Lymph % (Auto) 7.8 [place] % (Auto) 5.2 Eos % (Auto) 0.0 Baso % (Auto) 0.1 Neut # (Auto) 12.02 H Lymph # (Auto) 1.1 [place] # (Auto) 0.7 Eos # (Auto) 0.0 Baso # (Auto) 0.0 Nucleated RBC % (auto) 0 Nucleated RBCs # 0.0 Sodium 131 L Potassium 5.0 Chloride 97 L Carbon Dioxide 21 L Anion Gap 18.0 BUN 51 H Creatinine 1.7 H GFR Calculation Not Reportable Glucose 210 H POC Glucose 221 H Calculated Osmolality 292 Calcium 8.2 L Urine Color Urine Appearance Urine pH Ur Specific [place] Urine Protein Urine Glucose (UA) Urine Ketones Urine Blood Urine Nitrate Urine Bilirubin Urine Urobilinogen Ur Leukocyte Esterase Urine RBC Urine WBC Ur Squamous Epith Cells Amorphous Sediment Urine Bacteria Urine Mucus Urine Yeast 10/19/20 10/19/20 10/19/20 10:36 16:02 20:53 WBC RBC Hgb Hct MCV MCH MCHC RDW Plt Count MPV Neut % (Auto) Lymph % (Auto) [place] % (Auto) Eos % (Auto) Baso % (Auto) Neut # (Auto) Lymph # (Auto) [place] # (Auto) Eos # (Auto) Baso # (Auto) Nucleated RBC % (auto) Nucleated RBCs # Sodium Potassium Chloride Carbon Dioxide Anion Gap BUN Creatinine GFR Calculation Glucose POC Glucose 191 H 147 H 127 H Calculated Osmolality Calcium Urine Color Urine Appearance Urine pH Ur Specific [place] Urine Protein Urine Glucose (UA) Urine Ketones Urine Blood Urine Nitrate Urine Bilirubin Urine Urobilinogen Ur Leukocyte Esterase Urine RBC Urine WBC Ur Squamous Epith Cells Amorphous Sediment Urine Bacteria Urine Mucus Urine Yeast 10/20/20 10/20/20 10/20/20 02:55 05:38 05:38 WBC 9.8 RBC 3.15 L Hgb 8.8 L Hct 27.8 L MCV 88.3 MCH 27.9 L MCHC 31.7 RDW 16.4 H Plt Count 265 MPV 10.8 H Neut % (Auto) 74.2 Lymph % (Auto) 17.0 [place] % (Auto) 6.9 Eos % (Auto) 0.8 Baso % (Auto) 0.4 Neut # (Auto) 7.25 Lymph # (Auto) 1.7 [place] # (Auto) 0.7 Eos # (Auto) 0.1 Baso # (Auto) 0.0 Nucleated RBC % (auto) 0 Nucleated RBCs # 0.0 Sodium 136 Potassium 4.1 Chloride 100 Carbon Dioxide 27 Anion Gap 13.1 BUN 59 H Creatinine 1.9 H GFR Calculation Not Reportable Glucose 136 H POC Glucose Calculated Osmolality 301 H Calcium 8.7 Urine Color Yellow Urine Appearance Clear Urine pH 5 Ur Specific [place] 1.010 Urine Protein Neg Urine Glucose (UA) Norm Urine Ketones Negative Urine Blood Neg Urine Nitrate Negative Urine Bilirubin Neg Urine Urobilinogen Norm Ur Leukocyte Esterase 1+ H Urine RBC 0-4 H Urine WBC 5-10 H Ur Squamous Epith Cells 0-4 H Amorphous Sediment Not Reportable Urine Bacteria None Urine Mucus N Urine Yeast 2+ H 10/20/20 06:41 WBC RBC Hgb Hct MCV MCH MCHC RDW Plt Count MPV Neut % (Auto) Lymph % (Auto) [place] % (Auto) Eos % (Auto) Baso % (Auto) Neut # (Auto) Lymph # (Auto) [place] # (Auto) Eos # (Auto) Baso # (Auto) Nucleated RBC % (auto) Nucleated RBCs # Sodium Potassium Chloride Carbon Dioxide Anion Gap BUN Creatinine GFR Calculation Glucose POC Glucose 135 H Calculated Osmolality Calcium Urine Color Urine Appearance Urine pH Ur Specific [place] Urine Protein Urine Glucose (UA) Urine Ketones Urine Blood Urine Nitrate Urine Bilirubin Urine Urobilinogen Ur Leukocyte Esterase Urine RBC Urine WBC Ur Squamous Epith Cells Amorphous [place] Urine Bacteria Urine Mucus Urine Yeast Micro: Microbiology 10/19/20 16:00 Blood Culture - Preliminary Blood SPECIMEN COLLECTED 10/19/20 15:55 Blood Culture - Preliminary Blood SPECIMEN COLLECTED 10/17/20 20:55 Blood Culture - Preliminary Blood Corynebacterium species Gram Negative Rods Cardiac Studies: No Data to Display
[2020-10-20] MEDS: clindamycin 600 MG/50 ML PREMIX 100 MG IV (09:40)
[2020-10-20] MEDS: lidocaine 1% INJ 20 mL INJECTION (09:47)
[2020-10-20] MEDS: sodium hypochlorite 0.25% Btl 473 mL 1 APPLIC TOPICAL (09:57)
--- NOTE | 2020-10-20 10:13 | P.OP_ITS ---
Operative Report Date of procedure: October 20, 2020 Pre-op Diagnosis: Diabetic foot ulcer left Post-op diagnosis: same Post-op Findings: Devitalized soft tissue down to and including bone left calcaneus Procedure Done: Incision and debridement of devitalized soft tissue and bone left foot, bone biopsy left calcaneus. Implants: None Specimens removed/disposition: Deep fascia, muscle and adipose tissue left heel sent to microbiology for Gram stain and culture Bone left calcaneus sent to microbiology for Gram stain and culture Pathology: none sent Surgeon: Mauri Perez D.P.M. Impress Associate: Masood Anesthesia: MAC Estimated blood loss: Less than 5 mL Tourniquet time: 11-minute IV fluids: None Urine output: None Complications: None Findings: Devitalized soft tissue and bone left heel Condition: stable Disposition: floor Brief History: Full-thickness diabetic heel ulcer left approximately 2 months in duration unknown etiology. Purulent drainage and foul-smelling odor, unable to tolerate bedside debridement. Recommended formal incision and debridement with bone biopsy if involved to the left lower extremity. Risks include pain, bleeding, numbness, infection, need for further surgical debridement, amputation of extremity, loss of limb loss of life, need for antibiotic therapy and repeat debridements and wound care. Patient seen in preop he is n.p.o. since midnight informed consent signed by myself and the patient I initialed his left lower extremity with a skin marker all questions answered to satisfaction he wishes to proceed. No guarantees written, expressed or implied. Procedure: Under mild sedation the patient was brought to the operating room and placed on the operating table in supine position. A timeout was performed. Anesthesia was then administered by the anesthesia service. Local anesthesia injected by myself in a proximal field block total of 30 cc of one-to-one mixture 1% lidocaine 0.5% Marcaine plain at the left posterior leg and heel. The left lower extremity was then scrubbed, prepped and draped utilizing normal aseptic technique and the tourniquet inflated to 250 mmHg at the left high calf. Attention was directed to the wound at the plantar aspect of the left calcaneus this had devitalized epidermis, dermis, subcutaneous tissue fat layer, deep fascia, muscle and probes to bone. #10 blade and pickups utilized to excise the entire margin to healthy tissue followed by debridement of all devitalized tissue down to and including bone utilizing rondure, pickups and 10 blade. Bleeders were ligated and cauterized as necessary. Rongeur utilized to perform bone biopsy of the left calcaneus, soft tissue and bone sent to microbiology for Gram stain and culture if this will help with antibiotic selection. Incision site was flushed with copious amounts of sterile saline solution. Post apartment measurements 6 cm x 5 cm x 1.5 cm. Wound was dressed with quarter percent Dakin solution wet-to-dry, Kerlix, ABD pad 4 and 6 inch Clemente wrap with minimal compression to not occlude vascular perfusion. Tourniquet was deflated and a prompt hyperemic response is noted to the distal digits of the left foot. Patient tolerated procedure well and was transferred to the PACU with vital signs stable and vascular status intact to be transferred back to the floor. I was notified that he has refused IV antibiotic infusions this morning this was vancomycin and Zosyn. I reinforced the importance of antibiotic therapy and treating his infection that surgical debridement alone will not be successful. He states that he will take antibiotics moving forward. Will offload bilateral heels at all times he has PODUS boots being dispensed by [facility].
[2020-10-20] MEDS: cetylpyridinium Lozenge 1 EACH MUCOUS MEM (11:23)
[2020-10-20 11:24] LABS: Glucose Point of Care 148 mg/dL (70-110)
[2020-10-20 14:43] LABS: Coronavirus Test Green County Not Detected
[2020-10-20 16:23] LABS: Glucose Point of Care 146 mg/dL (70-110)
--- NOTE | 2020-10-20 18:00 | ANE.PACU2 ---
Inpatient post-anesthesia follow up: Airway intact: Yes Vital signs: Temperature 98.0 F Pulse Rate [Monito r] 99 Pulse Rate 77 Respiratory Rate 20 Blood Pressure [Le ft Arm] 114/70 Blood Pressure 132/73 Pulse Oximetry 96 Oxygen Delivery Me thod Room Air Oxygen Flow Rate 8 Fraction of Inspir ed Oxygen Hydration adequate: Yes Nausea and vomiting: No Pain level: 2 Mental status: Baseline
[2020-10-20] MEDS: FUROsemide 40 mg Tablet PO (19:20)
--- NOTE | 2020-10-20 20:04 | PC.NURSE ---
at approx 1305 and 1744 notified physician for need for new ABX orders. physician messaged will have to order diff abx for him due to esequiel but so far no orders received at this time.
[2020-10-20 20:11] LABS: Glucose Point of Care 257 mg/dL (70-110)
--- NOTE | 2020-10-20 23:40 | PM.PN ---
Subjective Subjective: Interval history: He is doing well he states. Denies pain today. Discussing further treatment recommendations with him, he is agreeable to continue with antibiotic therapy, placement of PICC line and continuation of IV antibiotic after discharge due to bone exposure. Then further options can be considered with wound care follow-up. However, no matter what, he adamantly declines to consider any sort of amputation. Vitals/I&O/Wt Last Vital Signs Temp 97.7 F 10/20/20 23:20 Pulse 83 10/20/20 23:20 Resp 24 H 10/20/20 23:20 BP 123/77 10/20/20 23:20 Pulse Ox 96 10/20/20 23:20 10/20/20 10/20/20 10/21/20 14:59 22:59 06:59 Intake Total 530 / 530 240 / 770 Output Total 100 / 100 640 / 740 Balance 430 / 430 -400 / 30 Physical Exam Const: COMMON NORMALS: no acute distress and patient oriented x3 GENERAL APPEARANCE: frail appearing HENMT: COMMON NORMALS: oropharynx normal Neck/C-Spine: COMMON NORMALS: no JVD Resp: COMMON NORMALS: normal respiratory effort and clear to auscultation bilaterally AUSCULTATION: clear to auscultation bilaterally Cardio: COMMON NORMALS: no JVD, regular rhythm, S1 normal heart sound present, S2 normal heart sound present and No murmurs present (Cardio) RHYTHM: regular rhythm HEART SOUNDS: S1 normal heart sound present and S2 normal heart sound present GI: COMMON NORMALS: Normal to inspection, nondistended, normoactive bowel sounds present, Soft to palpation and non-tender PALPATION: Yes Soft to palpation Extremity: COMMON NORMALS: no joint enlargement and no pedal edema OTHER: Left foot dressed in fresh postoperative dressing. Neuro: COMMON NORMALS: patient oriented x3 and moves all extremities Skin: OTHER: Foot ulcers. Dry scaly skin of lower extremities. Data : 10/20/20 05:38 10/20/20 05:38 Micro: Microbiology 10/19/20 16:00 Blood Culture - Preliminary Blood NEGATIVE TO DATE 10/19/20 15:55 Blood Culture - Preliminary Blood NEGATIVE TO DATE 10/20/20 09:55 Gram Stain - Final Tissue 10/20/20 09:55 Gram Stain - Final Foot - #2 10/17/20 20:55 Blood Culture - Preliminary Blood Corynebacterium species Anaerobic gram negative rods A&P Assessment and plan (1) Sepsis: Improving. Leukocytosis resolved. Remains afebrile. Per discussion with him and podiatry antibiotics to be changed today due to acute kidney injury. Transitioning to cefepime, daptomycin. Add Flagyl due to gram-negative anaerobic rods. Continue wound care. Monitoring. Arrangements for outpatient antibiotic infusions and [facility] facility placement. Left lower extremity infection. Status post debridement today. Bone exposure to necrotic tissue. Bone biopsy obtained. Chronic wounds left heel, right heel and forefoot on the plantar surface. Urinalysis 5-10 WBC. Follow-up culture. Speech therapy due to some episodes of possible aspiration. Positive blood cultures, corynebacterium, anaerobic gram-negative otoniel. Repeated. Follow-up. Status: Acute (2) Fever: Status: Acute Qualifiers: Fever type: unspecified Qualified Code(s): R50.9 - Fever, unspecified (3) Weakness: Secondary to acute infection, bacteremia, also noted history of cardiomyopathy, CHF. Treat as above. With physical deconditioning, would benefit from rehabilitation. Discharge planning working with him and family with regards to placement. Status: Acute (4) Venous stasis ulcers of both lower extremities: Status: Acute (5) Cellulitis: Status: Acute (6) Hypothyroid: Status: Acute (7) Anemia: Status: Acute Qualifiers: Anemia type: due to chronic kidney disease Chronic kidney disease stage: unspecified stage Qualified Code(s): N18.9 - Chronic kidney disease, unspecified; D63.1 - Anemia in chronic kidney disease (8) CKD (chronic kidney disease): Acute kidney injury on chronic kidney disease. Change antibiotics away from vancomycin and Zosyn. Status: Acute Qualifiers: Chronic kidney disease stage: stage 3 (moderate) Qualified Code(s): N18.3 - Chronic kidney disease, stage 3 (moderate) (9) Type 2 diabetes mellitus: Hyperglycemia: Insulin sliding scale, monitor glucose. Consistent carbohydrate diet. Status: Acute Qualifiers: Diabetes mellitus salvage determiner insulin use: without salvage determiner use Diabetes mellitus complication status: without complication Qualified Code(s): E11.9 - Type 2 diabetes mellitus without complications Additional A&P Information CHF without acute exacerbation continue Lasix 40 twice daily, hold spironolactone Chronic hyponatremia Attestations Medical Necessity Statement*: Continue admission for assessment management of left lower extremity infection, gram-negative otoniel anaerobic bacteremia. Coding Level of Care Code Acute It Applications Developer for [facility] Fwd Diagnoses Sepsis A41.9 Fever R50.9 Fever type: unspecified Weakness R53.1 Venous stasis ulcers of both lower extremities I83.019; I83.029; L97.919; L97.929 Cellulitis L03.90 Hypothyroid E03.9 Anemia N18.9; D63.1 Anemia type: due to chronic kidney disease Chronic kidney disease stage: unspecified stage CKD (chronic kidney disease) N18.3 Chronic kidney disease stage: stage 3 (moderate) Type 2 diabetes mellitus E11.9 Diabetes mellitus salvage determiner insulin use: without salvage determiner use Diabetes mellitus complication status: without complication
[2020-10-21] VITALS (12 sets, daily range): BP systolic 118–132; BP diastolic 70–79; PULSE 72–81; RESP 16–20; TEMP 36.1–36.8; O2SAT 94–97
[2020-10-21] MEDS: HYDROmorphone 1 mg/mL INJ 1 mL 0.4 MG IVP ×2 (02:05→12:51)
[2020-10-21] MEDS: heparin 5,000 unit/mL INJ 1 mL 5000 UNIT SUBCUT ×3 (02:09→18:36)
[2020-10-21] MEDS: cefepime 2,000 MG in sodium chloride 0.9% (plus) 50 ML 100 MG IV ×2 (03:21→23:58)
[2020-10-21 06:30] LABS: Glucose Point of Care 147 mg/dL (70-110)
[2020-10-21 06:43] LABS: Basophils % 0.5 %; Eosinophils # 0.2 10^3/uL (0.0-0.8); Hematocrit 26.9 % (42.0-52.0); Hemoglobin 8.5 g/dL (11.7-16.6); Lymphocytes # 1.8 10^3/uL (0.8-4.8); Lymphocytes % 23.3 %; Mean Corpuscular HGB Conc 31.6 g/dL (30.0-36.0); Mean Corpuscular Hemoglobin 28.7 pg (28.0-34.0); Mean Corpuscular Volume 90.9 fL (80-94); Monocytes # 0.6 10^3/uL (0.2-0.9); Monocytes % 7.6 %; Neutrophils # 5.02 10^3/uL (1.8-7.7); Nucleated Red Blood Cells % 0 %; Platelet Count 280 10^3/cmm (130-400); Red Blood Count 2.96 10^6/uL (4.1-5.3); Red Cell Distribution Width 16.4 % (12.1-15.1); White Blood Count 7.7 10^3/uL (4.0-10.0)
[2020-10-21 07:01] LABS: Blood Urea Nitrogen 49 mg/dL (8-23); Calcium 8.6 mg/dL (8.5-10.5); Carbon Dioxide 24 mmol/L (22-29); Chloride 103 mmol/L (98-107); Glucose 126 mg/dL (65-115); Osmolality Calculated 295 mOsm/kg (285-295); Sodium 135 mmol/L (136-145)
--- NOTE | 2020-10-21 07:25 | P.PN_ITS ---
Subjective Subjective: Interval history: Patient seen bedside this morning, 1 day status post incision and debridement left heel with bone biopsy of the left calcaneus. Denies any acute events overnight. Tolerating regular diet. Pain under control. Patient denies any subjective nausea, vomiting, fever, chills, shortness of breath or chest pain. Vitals/I&O/Wt Last Vital Signs Temp 97.1 F L 10/21/20 07:13 Pulse 77 10/21/20 07:13 Resp 17 10/21/20 07:13 BP 124/73 10/21/20 07:13 Pulse Ox 94 10/21/20 07:13 10/20/20 10/21/20 10/21/20 22:59 06:59 14:59 Intake Total 240 / 770 707 / 1477 Output Total 865 / 965 325 / 1290 Balance -625 / -195 382 / 187 Physical Exam Narrative: EXAM NARRATIVE: GENERAL: Patient is alert and oriented ?3 and in no acute distress. The following is a focused bilateral lower extremity exam. VASCULAR: Dorsalis pedis palpable posterior tibial arteries palpable. Capillary refill time less than 5 seconds to the distal hallux bilaterally. Calf is supple and nontender proximally and distally. Pitting edema to lower extremities left greater than right. Diminished pedal hair growth bilaterally. NEUROLOGICAL: Protective sensation intact 0/10 sites, tested with Pengilly Denise monofilament to bilateral feet. DERMATOLOGICAL: Venous stasis ulceration at the left lateral distal leg is stable with scab covering no purulent drainage. Cellulitis to the distal one third of the left leg source is from the left heel. Increased granulation tissue without erythema or purulence at the right heel wound. Left heel wound exposed bone, no purulent drainage improved erythema. MUSCULOSKELETAL: Tenderness at left heel. Hammertoe deformities 2 through 5 bilaterally are reducible. Ankle joint dorsiflexion is to neutral. No pain with posterior calf squeeze bilaterally. Data : 10/21/20 06:09 10/21/20 06:09 Micro: Microbiology 10/19/20 16:00 Blood Culture - Preliminary Blood NEGATIVE TO DATE 10/19/20 15:55 Blood Culture - Preliminary Blood NEGATIVE TO DATE 10/20/20 09:55 Gram Stain - Final Tissue 10/20/20 09:55 Gram Stain - Final Foot - #2 10/17/20 20:55 Blood Culture - Preliminary Blood Corynebacterium species Anaerobic gram negative rods A&P Assessment and plan (1) Diabetes mellitus with diabetic polyneuropathy: Status: Acute Qualifiers: Diabetes mellitus type: type 2 Diabetes mellitus terminal superintendent insulin use: with intermediate use Qualified Code(s): E11.42 - Type 2 diabetes mellitus with diabetic polyneuropathy; Z79.4 - rn long term care (current) use of insulin (2) 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 -Incision and debridement left heel with bone biopsy of left calcaneus performed 10/20/20 -Will need to offload bilateral heels at all times while at rest during this hospitalization as well as at discharge/transfer. PODUS boots will need to be utilized -Currently receiving empiric IV antibiotics, bone culture pending -Quarter percent Dakin solution wet to dry dressing change 3 times daily during this hospitalization. -Planning on transfer to correction facility in [place] will need wound care referral on discharge/transfer Dr. 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
[2020-10-21] MEDS: pantoprazole DR 40 mg Tablet PO (08:45)
[2020-10-21] MEDS: aspirin 81 mg Chew Tablet PO (08:46)
[2020-10-21] MEDS: levothyroxine 75 mcg Tablet 150 MCG PO (08:46)
[2020-10-21] MEDS: potassium chloride ER 10 mEq Tablet 20 MEQ PO (08:48)
[2020-10-21] MEDS: FUROsemide 40 mg Tablet PO ×2 (08:48→18:37)
[2020-10-21 12:01] LABS: Glucose Point of Care 235 mg/dL (70-110)
--- NOTE | 2020-10-21 14:24 | ECG_ITS ---
[facility] ED Test Date: 2020-10-21 Pat Name: Rhett Cotto Department: Room: 275 Gender: Male Cloth Tester Quality: : 1940 Requested By: Edgar Hernandez Order Number: [id number] Reading MD: Donna Navarrete M.D. Measurements Intervals [place] Rate: 77 P: -29 SD: 240 QRS: -37 QRSD: 138 T: 162 QT: 478 QTc: 542 Interpretive Statements SINUS RHYTHM WITH FIRST DEGREE AV BLOCK WITH OCCASIONAL VENTRICULAR PREMATURE COMPLEXES INTRAVENTRICULAR CONDUCTION DELAY [130+ ms QRS DURATION] INFERIOR MYOCARDIAL INFARCTION [40+ ms Q WAVE AND/OR ST/T ABNORMALITY IN II/aVF], OF INDETERMINATE AGE Compared to ECG 10/17/2020 21:07:45 First degree AV block now present Myocardial infarct finding now present Left-axis deviation no longer present T-wave abnormality no longer present Electronically Signed On 10-26-2020 21:11:03 CDT by Donna Navarrete M.D. [email or web address]
--- NOTE | 2020-10-21 14:29 | XRR_ITS ---
PROCEDURE INFORMATION: Exam: XR Chest Exam date and time: 10/21/2020 2:59 PM Age: 79 years old Clinical indication: Shortness of breath TECHNIQUE: Imaging protocol: XR of the chest Views: 1 view. Total images: 1 COMPARISON: CR XR chest 1V portable [id number] 10/17/2020 9:03 PM FINDINGS: Lungs: No visible active interstitial or alveolar airspace disease. Mild senile fibrosis. Pleural spaces: Unremarkable. No pleural effusion. No pneumothorax. Heart/Mediastinum: Cardiac structures and configuration with cardiomegaly and arteriosclerosis. Bones/joints: Scoliosis. Age-appropriate degenerative disease. XR/XR chest 1V portable [id number] IMPRESSION: Nonacute.
[2020-10-21 15:26] LABS: Troponin(5th) Baseline 82 ng/L (0-15)
[2020-10-21 16:09] LABS: Glucose Point of Care 217 mg/dL (70-110)
[2020-10-21 17:28] LABS: Troponin 5 2HR 82.73 ng/L (0-15); Troponin 5 2HR Delta 0.73 ABS# (0-10)
[2020-10-21] MEDS: HYDROmorphone 1 mg/mL INJ 1 mL 0.5 MG IVP ×2 (18:06→22:05)
[2020-10-21] MEDS: metoprolol tartrate 25 mg Tablet 12.5 MG PO (20:05)
[2020-10-21] MEDS: atorvastatin 40 mg Tablet PO (20:05)
[2020-10-21 20:09] LABS: Glucose Point of Care 115 mg/dL (70-110)
[2020-10-21 21:38] LABS: Troponin 5 6HR 96.34 ng/L (0-15)
--- NOTE | 2020-10-21 21:40 | P.PN_ITS ---
Subjective Subjective: Interval history: Not feeling the best today, bothered by pain in his leg, lost his IV, having to have one replaced. He is being visited by daughter. We discussed his condition including gram-negative otoniel bacteremia, continued care, plans for after discharge care and follow-up with wound care, continued IV antibiotics, placement to skilled nurse facility for rehabilitation and IV antibiotics, and then consideration of further strategies with wound care to help the wound regrowth of tissue over the wound/bone. Vitals/I&O/Wt Last Vital Signs Temp 97.8 F 10/21/20 19:19 Pulse 72 10/21/20 20:34 Resp 18 10/21/20 20:34 BP 118/70 10/21/20 19:19 Pulse Ox 97 10/21/20 20:34 10/21/20 10/21/20 10/21/20 06:59 14:59 22:59 Intake Total 707 / 1477 840 / 840 474 / 1314 Output Total 325 / 1290 750 / 750 Balance 382 / 187 90 / 90 474 / 564 Physical Exam Const: COMMON NORMALS: no acute distress, patient oriented x3 and alert GENERAL APPEARANCE: frail appearing ORIENTATION/CONSCIOUSNESS: Yes awake HENMT: COMMON NORMALS: oropharynx normal Neck/C-Spine: COMMON NORMALS: no JVD Resp: COMMON NORMALS: normal respiratory effort and clear to auscultation bilaterally AUSCULTATION: clear to auscultation bilaterally Cardio: COMMON NORMALS: no JVD, regular rhythm, S1 normal heart sound present, S2 normal heart sound present and No murmurs present (Cardio) RHYTHM: regular rhythm HEART SOUNDS: S1 normal heart sound present and S2 normal heart sound present GI: COMMON NORMALS: Normal to inspection, nondistended, normoactive bowel sounds present, Soft to palpation and non-tender PALPATION: Yes Soft to palpation Extremity: COMMON NORMALS: no joint enlargement and no pedal edema NARRATIVE EXTREMITY EXAM: Left foot covered by fresh dressing. Ulceration on plantar surface of the right foot on the heel, small ulceration at distal/anterior plantar right foot. No surrounding erythema. Neuro: COMMON NORMALS: patient oriented x3 and moves all extremities SENSORIUM/ORIENTATION: Yes alert Skin: COMMON NORMALS: no rashes or lesions noted GENERAL SKIN EXAM: no rashes or lesions noted Data : 10/21/20 06:09 10/21/20 06:09 Micro: Microbiology 10/17/20 20:48 Blood Culture - Preliminary Blood Corynebacterium species Bacteroides fragilis Gram Negative Rods 10/17/20 20:55 Blood Culture - Preliminary Blood Corynebacterium species Bacteroides fragilis Gram Negative Rods 10/20/20 09:55 Gram Stain - Final Tissue Wound Culture - Preliminary Gram Negative Rods 10/20/20 09:55 Gram Stain - Final Foot - #2 Tissue Culture - Preliminary Gram Negative Rods 10/20/20 02:55 Urine Culture - Preliminary Urine,Voided A&P Assessment and plan (1) Sepsis: Gram-negative otoniel bacteremia. Gram-negative rods in the wound. Flagyl added yesterday, although appears loading dose was brought up but never administered. Started with maintenance dose. Given loading dose today instead, continue maintenance doses. Continue cefepime, daptomycin. Follow-up initial and repeat cultures. Discussed with him and his daughter, will need PICC line placement on Friday, IV antibiotics after discharge for at least 6 weeks. Discussed possible peripheral arterial disease with him and his daughter. Consider additional assessment after out of acute illness/acute kidney injury utility of reperfusion. Arterial duplex appears to be back, NICHELLE on the right 0.9, but it is 0.5 on the left. Arrangements for half-way facility placement. Left lower extremity wound infection, cellulitis. Status post debridement of the wound and gangrene. Bone exposure to necrotic tissue. Bone biopsy obtained. Chronic wounds left heel, right heel and forefoot on the plantar surface. Urinalysis 5-10 WBC. Follow-up culture. Speech therapy due to some episodes of possible aspiration. Status: Acute (2) Fever: Status: Acute Qualifiers: Fever type: unspecified Qualified Code(s): R50.9 - Fever, unspecified (3) Weakness: Secondary to acute infection, bacteremia, also noted history of cardiomyopathy, CHF. Treat as above. Mobilize with physical deconditioning, would benefit from rehabilitation. Discharge planning working with him and family with regards to placement. Status: Acute (4) Venous stasis ulcers of both lower extremities: Status: Acute (5) Cellulitis: Status: Acute (6) Hypothyroid: Status: Acute (7) Anemia: Status: Acute Qualifiers: Anemia type: due to chronic kidney disease Chronic kidney disease stage: unspecified stage Qualified Code(s): N18.9 - Chronic kidney disease, unspecified; D63.1 - Anemia in chronic kidney disease (8) CKD (chronic kidney disease): Acute kidney injury appears to be improving with changing antibiotics, improvement in sepsis. Status: Acute Qualifiers: Chronic kidney disease stage: stage 3 (moderate) Qualified Code(s): N18 .3 - Chronic kidney disease, stage 3 (moderate) (9) Type 2 diabetes mellitus: Hyperglycemia: Insulin sliding scale, monitor glucose. Consistent carbohydrate diet. Status: Acute Qualifiers: Diabetes mellitus personal property assessor insulin use: without assisted use Diabetes mellitus complication status: without complication Qualified Code(s): E11.9 - Type 2 diabetes mellitus without complications Additional A&P Information CHF without acute exacerbation continue Lasix 40 twice daily, hold spironolactone Episode of shortness of breath: During Flagyl infusion. This was held. Troponin EKG assessed. Does not appear to have acute VT, however, some rise in the last troponin. We will repeat value in the morning. Chronic hyponatremia Attestations Medical Necessity Statement*: Continue admission for assessment management of anaerobic gram-negative otoniel sepsis following wound infection of left heel, gangrene, bone exposure, disposition planning and arrangements for prolonged antibiotic course, and IV antibiotics after discharge, rehabilitation. Coding Level of Care Code Acute Respiratory Director for [facility] Fwd Diagnoses Sepsis A41.9 Fever R50.9 Fever type: unspecified Weakness R53.1 Venous stasis ulcers of both lower extremities I83.019; I83.029; L97.919; L97.929 Cellulitis L03.90 Hypothyroid E03.9 Anemia N18.9; D63.1 Anemia type: due to chronic kidney disease Chronic kidney disease stage: unspecified stage CKD (chronic kidney disease) N18.3 Chronic kidney disease stage: stage 3 (moderate) Type 2 diabetes mellitus E11.9 Diabetes mellitus personal property assessor insulin use: without personal property assessor use Diabetes mellitus complication status: without complication
[2020-10-21 21:49] LABS: Troponin 5 6HR Delta 14.34 ng/L (0-12)
[2020-10-22] VITALS (13 sets, daily range): BP systolic 99–131; BP diastolic 64–79; PULSE 69–84; RESP 16–20; TEMP 36–36.6; O2SAT 93–97
[2020-10-22] MEDS: heparin 5,000 unit/mL INJ 1 mL 5000 UNIT SUBCUT ×3 (00:45→17:47)
[2020-10-22] MEDS: HYDROmorphone 1 mg/mL INJ 1 mL 0.5 MG IVP ×5 (02:17→22:40)
[2020-10-22] MEDS: acetaminophen 325 mg Tablet PO ×2 (03:06→11:36)
[2020-10-22 06:32] LABS: Glucose Point of Care 152 mg/dL (70-110)
[2020-10-22 07:31] LABS: Basophils % 0.4 %; Eosinophils # 0.5 10^3/uL (0.0-0.8); Eosinophils % 5.6 %; Hematocrit 28.8 % (42.0-52.0); Hemoglobin 9.1 g/dL (11.7-16.6); Lymphocytes # 1.2 10^3/uL (0.8-4.8); Lymphocytes % 14.2 %; Mean Corpuscular HGB Conc 31.6 g/dL (30.0-36.0); Mean Corpuscular Hemoglobin 28.3 pg (28.0-34.0); Mean Corpuscular Volume 89.7 fL (80-94); Mean Platelet Volume 10.6 fL (7.4-10.4); Monocytes # 0.5 10^3/uL (0.2-0.9); Monocytes % 5.3 %; Neutrophils # 6.27 10^3/uL (1.8-7.7); Neutrophils % 73.7 %; Nucleated Red Blood Cells % 0 %; Platelet Count 271 10^3/cmm (130-400); Red Blood Count 3.21 10^6/uL (4.1-5.3); Red Cell Distribution Width 16.7 % (12.1-15.1); White Blood Count 8.5 10^3/uL (4.0-10.0)
[2020-10-22 08:12] LABS: Alanine Aminotransferase 18 U/L (0-41); Albumin Level 2.7 g/dL (3.5-5.2); Alkaline Phosphatase 123 IU/L (40-130); Anion Gap 11.9 (5-19); Aspartate Amino Transferase 19 U/L (0-40); Blood Urea Nitrogen 41 mg/dL (8-23); Calcium 8.6 mg/dL (8.5-10.5); Carbon Dioxide 25 mmol/L (22-29); Chloride 103 mmol/L (98-107); Globulin 3.3 g/dL (1.3-4.6); Glucose 142 mg/dL (65-115); Osmolality Calculated 295 mOsm/kg (285-295); Potassium 3.9 mmol/L (3.5-5.1); Sodium 136 mmol/L (136-145); Total Bilirubin 0.4 mg/dL (0.15-1.2)
[2020-10-22 08:16] LABS: Troponin T (5th) Once 139 ng/L (0-15)
--- NOTE | 2020-10-22 08:29 | PC.SOCIAL ---
*IMM* Updated patient, initialled in Chart.
[2020-10-22] MEDS: levothyroxine 75 mcg Tablet 150 MCG PO (09:56)
[2020-10-22] MEDS: pantoprazole DR 40 mg Tablet PO (09:58)
[2020-10-22] MEDS: FUROsemide 40 mg Tablet PO ×2 (09:58→17:46)
[2020-10-22] MEDS: aspirin 325 mg Tablet PO (10:09)
[2020-10-22] MEDS: metoprolol tartrate 25 mg Tablet 12.5 MG PO (10:10)
[2020-10-22] MEDS: potassium chloride ER 20 mEq Tablet PO (10:10)
[2020-10-22 10:22] LABS: Glucose Point of Care 229 mg/dL (70-110)
--- NOTE | 2020-10-22 10:28 | P.CONIM_ITS ---
Providers/Reason For Consult Consulting Physican/Specialty*: AIDEN Kirk MD/cardiology Reason for Consult*: Patient with elevated troponin T and chest pain Attending Physician: Edgar Hernandez Primary Care Provider: Jose Manuel Mooney MD History of Present Illness History of Present Illness Rhett Cotto is a 79 year old male with multiple medical problems, was brought to the emergency room by the EMS with complaints of generalized weakness, unable to get up from bed and with a low-grade fever. He was found to have features of sepsis. He is admitted to the hospital for further evaluation and management. He has been getting IV antibiotics. He was complaining of some vague chest pains yesterday. Subsequent troponin T's were found to be elevated with significant delta. Cardiology consult is requested for further cardiac evaluation recommendations. Patient is resting very poor historian. He also is difficult to understand because of his history of cleft lip and cleft palate. He has a history of atherosclerotic heart disease and previous PCI. A recent echocardiogram revealed severe LV systolic dysfunction with ejection fraction of 25 to 30%. He is known to have chronic heart failure and chronic swelling of the extremities. He has chronic leg ulcers and is being followed with the wound clinic. Apparently he had ulcers of both feet and had multiple debridements in the recent past. He was recently admitted to hospital following a fall, sustaining fracture of the vertebrae. He was found to have infected ulcerations on both foot at that time which required debridement. Apparently the patient refused placement in a long-term facility. He was at home lying in the bed unable to get up, urinating and defecating in the bed. He was not complaining of any chest pain or cough at the time of ER admission. He is known to have chronic bilateral leg swelling, venous stasis and peripheral arterial disease. He has not had any peripheral angiogram, at least based on his medical records. He is complaining of pain in the left leg mainly in the fo ot area at rest. He has no evidence of any critical limb ischemia at this time. His NICHELLE was found to be 0.5 on the left side and 0.9 on the right side. He had a wound debridement of the devitalized soft tissue and bone in the left foot with a biopsy of the calcaneus bone on 10/20/2020. He apparently started having chest pain last evening. Patient is very vague about the symptoms. He had some pleuritic component for the chest pain as well. Did not have any unusual shortness of breath. No fever, chills or cough. EKG showed deep T wave inversion in the anterolateral leads which appear to be new compared to the EKG from August of this year. Patient has a history of ASHD, myocardial infarction, PCI and heart failure. Details of these are not available. He also is known to have pulmonary hypertension Review of Systems Narrative: CONSTITUTIONAL: No fever or chills. Generalized weakness/lethargy EYES: No blurring of vision or other visual disturbances lately. ENT: No hoarseness of voice, auditory disturbances or sore throat. Difficulty in speech CARDIOVASCULAR: As mentioned above. RESPIRATORY: No significant cough. GASTROINTESTINAL: No hematemesis or melena. GENITOURINARY: History of chronic kidney disease INTEGUMENTARY: Has been having some rashes in the upper extremities? With an tibiotics NEURO: No transient ischemic attacks or amaurosis. PSYCHIATRIC: No history of psychosis or major depression. HEMATOLOGIC: History of chronic anemia ENDOCRINE: Type 2 diabetes MUSCULOSKELETAL: Recent fall sustaining fracture of the vertebrae from T8-T11 ALLERGY/IMMUNOLOGY: As mentioned above. Meds/Allergies Home Medications and Allergies Home Medications Medication Instructions Recorded Confirmed Last Taken Type furosemide 40 mg PO BID 30 Days #0 tab 04/09/20 10/17/20 10/17/20 Rx aspirin 81 mg PO DAILY 08/28/20 10/17/20 10/17/20 History spironolactone 25 mg PO DAILY 08/28/20 10/17/20 10/17/20 History metformin 500 mg PO BID 09/22/20 10/17/20 10/17/20 History omeprazole 20 mg PO DAILY 28 Days cap 09/22/20 10/17/20 10/17/20 Rx hydrocodone-acetaminophen 1 tab PO Q6H PRN 10/17/20 10/17/20 Unknown History levothyroxine 150 mcg PO DAILY 10/17/20 10/17/20 Unknown History levothyroxine 150 mcg PO DAILY 10/17/20 10/17/20 Unknown History potassium chloride 20 meq PO BID 10/17/20 10/17/20 10/17/20 History Allergies Allergy/AdvReac Type Severity Reaction Status Date / Time metronidazole [From Flagyl] Allergy ALGY-Rash Verified 10/22/20 10:13 Current Medications Current Medications Generic Name Dose Route Start Last Admin Trade Name Freq PRN Reason Stop Dose Admin Acetaminophen 325 - 650 mg 10/18/20 01:32 10/22/20 03:06 Acetaminophen 325 Mg Tablet PO 650 mg Q4H PRN Administration MILD PAIN OR INCREASE TEMP Aspirin 325 mg 10/22/20 09:30 10/22/20 10:09 Aspirin 325 Mg Tablet PO 325 mg DAILY NICHOLAS Administration Atorvastatin Calcium 40 mg 10/21/20 21:00 10/21/20 20:05 Atorvastatin 40 Mg Tablet PO 40 mg BEDTIME NICHOLAS Administration Furosemide 40 mg 10/18/20 09:00 10/22/20 09:58 Furosemide 40 Mg Tablet PO 40 mg BID NICHOLAS Administration Heparin Sodium (Beef Lung) 5,000 unit 10/18/20 01:20 10/22/20 09:57 Heparin 5,000 Unit/Ml Inj 1 Ml SUBCUT 5,000 unit Q8H NICHOLAS Administration Hydromorphone HCl 0.5 mg 10/21/20 16:27 10/22/20 09:58 Hydromorphone 1 Mg/Ml Inj 1 Ml IVP 0.5 mg Q4H PRN Administration pain Daptomycin 300 mg/ Sodium 100 mls @ 100 mls/hr 10/20/20 23:45 10/22/20 01:44 Chloride IV Infused Q24H NICHOLAS Infusion Imipenem/Cilastatin Sodium 500 100 mls @ 200 mls/hr 10/22/20 10:00 10/22/20 10:10 mg/ Sodium Chloride IV 200 mls/hr Q8H NICHOLAS Administration Protocol Insulin Aspart 0 unit 10/18/20 08:00 10/22/20 09:57 Insulin Aspart 100 Unit/1 Ml SUBCUT 4 unit WM&BEDTIME NICHOLAS Administration Protocol Levothyroxine Sodium 150 mcg 10/18/20 09:00 10/22/20 09:56 Levothyroxine 75 Mcg Tablet PO 150 mcg DAILY NICHOLAS Administration Metoprolol Tartrate 12.5 mg 10/21/20 21:00 10/22/20 10:10 Metoprolol Tartrate 25 Mg Tablet PO 12.5 mg BID@0900,2100 NICHOLAS Administration Pantoprazole Sodium 40 mg 10/18/20 09:00 10/22/20 09:[address] 40 Mg Tablet PO 40 mg DAILY NICHOLAS Administration Polyethylene Glycol 17 gm 10/18/20 09:00 04/04/21 09:57 Polyethylene Glycol 3350 Pkt 17 Gm PO Not Given DAILY NICHOLAS Potassium Chloride 20 meq 10/22/20 09:00 10/22/20 10:10 Potassium Chloride Er 20 Meq Tablet PO 20 meq DAILY NICHOLAS Administration Senna/Docusate Sodium 1 tab 10/18/20 09:00 10/22/20 09:57 Sennosides-Docusate Tablet PO Not Given DAILY NICHOLAS PFSH Acute PFSH: Medical History Anasarca ASHD (arteriosclerotic heart disease) Cardiomyopathy CHF (congestive heart failure) Cleft palate and cleft lip Diabetes Dyslipidemia HTN (hypertension) Myocardial infarction Preoperative clearance Surgical History Cleft palate Surgically repaired History of tonsillectomy Leg fracture, left Lower leg fractures repaired with rods and bone grafts S/P PTCA (percutaneous transluminal coronary angioplasty) Family History Other Diabetes Social History Smoking and tobacco status: never smoked Alcohol intake: current Alcohol intake frequency: holidays/special occasions only Household members: spouse Marital status: Vitals/I&O/Wt Last Vital Signs Temp 97.0 F L 10/22/20 07:10 Pulse 69 10/22/20 07:10 Resp 17 10/22/20 09:58 BP 103/66 10/22/20 07:10 Pulse Ox 97 10/22/20 07:10 10/21/20 10/22/20 10/22/20 22:59 06:59 14:59 Intake Total 591 / 1431 707 / 2138 120 / 120 Output Total 775 400 / 1175 450 / 450 Balance 566 / 656 307 / 963 -330 / -330 Physical Exam Narrative: EXAM NARRATIVE: GENERAL: The patient is alert but chronically ill looking and somewhat withdrawn, unkempt. Not in any acute distress. Difficult to understand because of the speech impediment HEENT: Moderate pallorno icterus or lymphadenopathy. The pupils are symmetrical oral cavity: There are no mucous membrane lesions. Funduscopic examination: Fundus is not visualized NECK: Trachea appears to be central. No masses noted. No JVD or thyromegaly appreciated. No carotid bruit. RESPIRATORY: Chest is symmetrical. No intercostals muscle retraction or any accessory muscle activation. There is no chest wall tenderness. Breath sounds are heard bilaterally. No rales or rhonchi heard. No evidence of any consolidation. Breath sounds are diminished in the bases HEART: The PMI could not be palpated. No other palpable precordial events.. No palpable precordial events. S1 and S2 are normal. No S3 but S4 is present. No pericardial rub or any click heard. ABDOMEN: No vessel pulsations or distention. No tenderness. No organomegaly appreciated. No abdominal bruit. Bowel sounds are normally heard. : Deferred. RECTAL: Deferred. LYMPHATIC: No lymphadenopathy noted in the neck . EXTREMITIES: 2+ edema both lower extremities. Features of chronic venous st asis. Chronic dermatitis. Both ankles are bandaged MUSCULOSKELETAL: No acute joint deformities or swelling SKIN: Patient has some erythematous rashes in both upper and lower extremities. NEUROPSYCHIATRIC: The patient is alert and oriented x3. No focal motor deficits. Has poor recollection of past events. Data Labs: Other Labs: Laboratory Last Values WBC 8.5 10^3/uL (4.0- 10.0) 10/22/20 06:51 RBC 3.21 10^6/uL (4.1 -5.3) L 10/22/20 06:51 Hgb 9.1 g/dL (11.7-16 .6) L 10/22/20 06:51 Hct 28.8 % (42.0-52.0 ) L 10/22/20 06:51 MCV 89.7 fL (80-94) 10/22/20 06:51 MCH 28.3 pg (28.0-34. 0) 10/22/20 06:51 MCHC 31.6 g/dL (30.0-3 6.0) 10/22/20 06:51 RDW 16.7 % (12.1-15.1 ) H 10/22/20 06:51 Plt Count 271 10^3/cmm (130 -400) 10/22/20 06:51 MPV 10.6 fL (7.4-10.4 ) H 10/22/20 06:51 Neut % (Auto) 73.7 % 10/22/20 06:51 Lymph % (Auto) 14.2 % 10/22/20 06:51 [place] % (Auto) 5.3 % 10/22/20 06:51 Eos % (Auto) 5.6 % 10/22/20 06:51 Baso % (Auto) 0.4 % 10/22/20 06:51 Neut # (Auto) 6.27 10^3/uL (1.8 -7.7) 10/22/20 06:51 Lymph # (Auto) 1.2 10^3/uL (0.8- 4.8) 10/22/20 06:51 [place] # (Auto) 0.5 10^3/uL (0.2- 0.9) 10/22/20 06:51 Eos # (Auto) 0.5 10^3/uL (0.0- 0.8) 10/22/20 06:51 Baso # (Auto) 0.0 10^3/uL (0.0- 0.1) 10/22/20 06:51 Nucleated RBC % (a uto) 0 % 10/22/20 06:51 Nucleated RBCs # 0.0 /100WBC 10/22/20 06:51 ESR 112 mm/hr (0-10) H 10/17/20 20:48 PT 17.80 SECONDS (12 .1-14.9) H 10/17/20 20:48 INR 1.42 (0.8-1.2) H 10/17/20 20:48 Sodium 136 mmol/L (136-1 45) 10/22/20 06:51 Potassium 3.9 mmol/L (3.5-5 .1) 10/22/20 06:51 Chloride 103 mmol/L (98-10 7) 10/22/20 06:51 Carbon Dioxide 25 mmol/L (22-29) 10/22/20 06:51 Anion Gap 11.9 (5-19) 10/22/20 06:51 BUN 41 mg/dL (8-23) H 10/22/20 06:51 Creatinine 1.4 mg/dL (0.7-1. 2) H 10/22/20 06:51 GFR Calculation Not Reportable 10/22/20 06:51 Glucose 142 mg/dL (65-115 ) H 10/22/20 06:51 POC Glucose 229 mg/dL (70-110 ) H 10/22/20 10:19 Calculated Osmolal ity 295 mOsm/kg (285- 295) 10/22/20 06:51 Lactate 2.2 mmol/L (0.5-2 .2) 10/17/20 20:48 Calcium 8.6 mg/dL (8.5-10 .5) 10/22/20 06:51 Total Bilirubin 0.4 mg/dL (0.15-1 .2) 10/22/20 06:51 AST 19 U/L (0-40) 10/22/20 06:51 ALT 18 U/L (0-41) 10/22/20 06:51 Alkaline Phosphata se 123 IU/L (40-130) 10/22/20 06:51 Troponin T Gen 5 n g/L 139 ng/L (0-15) H* 10/22/20 06:51 Troponin T Baselin e 82 ng/L (0-15) H 10/21/20 14:45 Troponin T 120 Min antonio 82.73 ng/L (0-15) H 10/21/20 16:31 Delta Troponin T 0.73 ABS# (0-10) 10/21/20 16:31 Troponin T Hi Sens 6Hr 96.34 ng/L (0-15) H 10/21/20 21:02 Troponin T Hi Sens 6Hr Delta 14.34 ng/L (0-12) H* 10/21/20 21:02 C-Reactive Protein 59.8 mg/L (0.0-4. 9) H 10/17/20 20:48 Total Protein 6.0 g/dL (6.6-8.7 ) L 10/22/20 06:51 Albumin 2.7 g/dL (3.5-5.2 ) L 10/22/20 06:51 Globulin 3.3 g/dL (1.3-4.6 ) 10/22/20 06:51 Urine Color Yellow (Yellow) 10/20/20 02:55 Urine Appearance Clear (CLEAR) 10/20/20 02:55 Urine pH 5 (5-7) 10/20/20 02:55 Ur Specific Gravit y 1.010 (1.005-1.0 30) 10/20/20 02:55 Urine Protein Neg (Negative) 10/20/20 02:55 Urine Glucose (UA) Norm (Normal) 10/20/20 02:55 Urine Ketones Negative (Negati ve) 10/20/20 02:55 Urine Blood Neg (Negative) 10/20/20 02:55 Urine Nitrate Negative (Negati ve) 10/20/20 02:55 Urine Bilirubin Neg (Negative) 10/20/20 02:55 Urine Urobilinogen Norm mg/dL (Negat joyce) 10/20/20 02:55 Ur Leukocyte Syeda ase 1+ (Negative) H 10/20/20 02:55 Urine RBC 0-4 /hpf (0-2) H 10/20/20 02:55 Urine WBC 5-10 /hpf (0-5) H 10/20/20 02:55 Ur Squamous Epith Cells 0-4 /hpf (0-5) H 10/20/20 02:55 Amorphous Sediment Not Reportable 10/20/20 02:55 Urine Bacteria None /hpf (NONE) 10/20/20 02:55 Urine Mucus N /hpf 10/20/20 02:55 Urine Yeast 2+ /hpf H 10/20/20 02:55 Nasal/Oral COVID-1 9 PCR Not detected 10/19/20 17:45 Influenza Type A A g Negative (Negati ve) 10/17/20 21:18 Influenza Type B A g Negative (Negati ve) 10/17/20 21:18 SARS-CoV-2 Ag (Rap id) Negative (Negati ve) 10/17/20 21:18 Micro: Micro: Microbiology 10/20/20 02:55 Urine Culture - Pr eliminary Urine,Voided Yeast 10/20/20 09:55 Gram Stain - Final Tissue Wound Culture - Pr eliminary Proteus mirabil is Staphylococcus aureus Enterococcus sp ecies 10/20/20 09:55 Gram Stain - Final Foot - #2 Tissue Culture - P reliminary Proteus mirabil is 10/17/20 20:55 Blood Culture - Pr eliminary Blood Bacillus sp not b. anthracis Bacteroides fra gilis Proteus mirabil is 10/17/20 20:48 Blood Culture - Pr eliminary Blood Bacillus sp not b. anthracis Bacteroides fra gilis Proteus mirabil is Imaging^: Echo: My impression: Cardiogram done on 03/30/2020 revealed LV systolic function is severely reduced with EF of 25 to 30%. Severe global hypokinesis need noted. Diastolic function is abnormal. Elevated RA pressure. Moderate pulmonary hypertension. At least moderate tricuspid regurgitation. Compared to prior study from 2013, there is no significant change in the echocardiogram. Bilateral lower extremity arterial Doppler examination: My impression: 1. Mildly diminished resting NICHELLE on the right side . 2. Abnormal Doppler waveform in dorsalis pedis artery on the right side, may suggest collateral filling in this vessel 3. Abnormal resting NICHELLE on the left side, suggestive of moderately severe peripheral artery disease possibly involving the superficial femoral artery. 4. 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 Diffuse T inversions in the anterolateral leads, suggestive of ischemia. Features of old inferior wall myocardial infarction. Nonspecific IVCD. Nonspecific ST-T changes in the high lateral leads. A&P Assessment and plan (1) Elevated troponin: Etiology of the elevated troponin T is not clear at this time. Possibility of a type II MO versus non-ST relation myocardial infarction are considerations. In view of his history of coronary disease, previous PCI and severe LV dysfunction, possibility of him having underlying coronary ischemia, especially in view of the abnormal EKG is a strong consideration. For further evaluation of his coronary status, a myocardial perfusion imaging would be appropriate. This was discussed with the patient in detail. Patient is wanting to go ahead with the procedure. We may go ahead and schedule this tomorrow. Based on the results, further recommendations will be made. In the meanwhile, he may continue on his current medications. I may cut back on the dose of the aspirin to the baby aspirin once a day and start him on Plavix 300 mg p.o. followed by 75 mg p.o. daily. Based on the results of the myocardial perfusion imaging, further recommendations will be made. Status: Acute (2) Ischemic cardiomyopathy: In view of the patient's severe LV systolic dysfunction, he may benefit from Entresto, if the blood pressure and the renal function tolerates it. It may be appropriate to start him on losartan 25 mg p.o. now and daily and as the blood pressure tolerates, it may be switched to Entresto. Also need to discuss about LifeVest/ICD. This needs to be discussed with the family. At the time of my examination, no family members were available. Status: Acute (3) ASHD (arteriosclerotic heart disease): After reviewing the myocardial perfusion imaging, further recommendations will be made. Status: Acute (4) Venous stasis ulcers of both lower extremities: Patient had a venous Doppler examination before he was found to have no evidence of DVT. Status: Acute (5) Sepsis: Patient is diagnosed with a gram-negative septicemia. Antibiotic treatment as per the primary. May continue with aggressive management of the leg ulcers. His blood culture grew bacteroids fragilis, Proteus mirabilis and bacillus Status: Acute Qualifiers: Sepsis type: sepsis due to unspecified organism Sepsis acute organ dysfunction status: unspecified Qualified Code(s): A41.9 - Sepsis, unspecified organism (6) Type 2 diabetes mellitus: Aggressive management of the diabetes, as per the primary. Status: Acute Qualifiers: Diabetes mellitus joint terminal attack controller insulin use: without group home use Diabetes mellitus complication status: without complication Qualified Code(s): E11.9 - Type 2 diabetes mellitus without complications (7) HTN (hypertension): Currently he is normotensive Status: Acute Qualifiers: Hypertension type: essential hypertension Qualified Code(s): I10 - Essential (primary) hypertension (8) Peripheral arterial disease: In view of the nonhealing ulcers, patient may benefit from peripheral angiogram and possible intervention. He was found to have an NICHELLE of 0.5 on the left side. He also has features of collateral filling of the dorsalis pedis artery on the right side. Status: Acute (9) Bilateral leg edema: This could be multifactorial. Chronic systolic heart failure, chronic venous stasis, peripheral arterial disease, dependency, etc. are contributing factors. Patient may be carefully treated with diuretics. Continue managing the precipitating factors. 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 Thank you for the opportunity to evaluate this patient and make these recommendations. Coding Level of Care Code Acute Military Equipment Specialist for [facility] F[facility] Diagnoses Elevated troponin R77.8 Ischemic cardiomyopathy I25.5 ASHD (arteriosclerotic heart disease) I25.10 Venous stasis ulcers of both lower extremities I83.019; I83.029; L97.919; L97.929 Sepsis A41.9 Sepsis type: sepsis due to unspecified organism Sepsis acute organ dysfunction status: unspecified Type 2 diabetes mellitus E11.9 Diabetes mellitus group home insulin use: without joint terminal attack controller use Diabetes mellitus complication status: without complication HTN (hypertension) I10 Hypertension type: essential hypertension Peripheral arterial disease I73.9 Bilateral leg edema R60.0
--- NOTE | 2020-10-22 11:20 | P.PN_ITS ---
Subjective Subjective: Interval history: Patient seen bedside this morning, 2 days status post incision and debridement left heel with bone biopsy of the left calcaneus. Denies any acute events overnight. Tolerating regular diet. Pain under control. Patient denies any subjective nausea, vomiting, fever, chills, shortness of breath or chest pain. Is wearing offloading boots. Vitals/I&O/Wt Last Vital Signs Temp 97.0 F L 10/22/20 07:10 Pulse 69 10/22/20 10:46 Resp 18 10/22/20 10:46 BP 103/66 10/22/20 07:10 Pulse Ox 97 10/22/20 10:46 10/21/20 10/22/20 10/22/20 22:59 06:59 14:59 Intake Total 1591 / 2431 707 / 3138 220 / 220 Output Total 5 400 / 1175 450 / 450 Balance 1566 / 1656 307 / 1963 -230 / -230 Physical Exam Narrative: EXAM NARRATIVE: GENERAL: Patient is alert and oriented ?3 and in no acute distress. The following is a focused bilateral lower extremity exam. VASCULAR: Dorsalis pedis palpable posterior tibial arteries palpable. Capillary refill time less than 5 seconds to the distal hallux bilaterally. Calf is supple and nontender proximally and distally. Pitting edema to lower extremities left greater than right. Diminished pedal hair growth bilaterally. NEUROLOGICAL: Protective sensation intact 0/10 sites, tested with [place] monofilament to bilateral feet. DERMATOLOGICAL: Venous stasis ulceration at the left lateral distal leg is stable with scab covering no purulent drainage. Cellulitis to the distal one third of the left leg source is from the left heel. Increased granulation tissue without erythema or purulence at the right heel wound. Left heel wound exposed bone, no purulent drainage improved erythema. MUSCULOSKELETAL: Tenderness at left heel. Hammertoe deformities 2 through 5 bilaterally are reducible. Ankle joint dorsiflexion is to neutral. No pain with posterior calf squeeze bilaterally. Data : 10/22/20 06:51 10/22/20 06:51 Micro: Microbiology 10/20/20 02:55 Urine Culture - Preliminary Urine,Voided Yeast 10/20/20 09:55 Gram Stain - Final Tissue Wound Culture - Preliminary Proteus mirabilis Staphylococcus aureus Enterococcus species 10/20/20 09:55 Gram Stain - Final Foot - #2 Tissue Culture - Preliminary Proteus mirabilis 10/17/20 20:55 Blood Culture - Preliminary Blood Bacillus sp not b. anthracis Bacteroides fragilis Proteus mirabilis 10/17/20 20:48 Blood Culture - Preliminary Blood Bacillus sp not b. 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 -Incision and debridement left heel with bone biopsy of left calcaneus performed 10/20/20 -Will need to offload bilateral heels at all times while at rest during this hospitalization as well as at discharge/transfer. PODUS boots will need to be utilized -Currently receiving empiric IV antibiotics, bone culture pending, growing staph, proteus and enterococcus -Quarter percent Dakin solution wet to dry dressing change 3 times daily left heel wound during this hospitalization. -Silver alginate to right heel wound once daily dressing change. 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
[2020-10-22 16:18] LABS: Glucose Point of Care 107 mg/dL (70-110)
[2020-10-22] MEDS: guaiFENesin 600 mg Tablet PO (18:12)
[2020-10-22] MEDS: atorvastatin 40 mg Tablet PO (21:16)
[2020-10-22] MEDS: clopidogrel 300 mg Tablet PO (21:16)
[2020-10-22 21:17] LABS: Glucose Point of Care 212 mg/dL (70-110)
--- NOTE | 2020-10-22 23:20 | P.PN_ITS ---
Subjective Subjective: Interval history: He continues being bothered by pain in his foot. Otherwise doing all right, denies trouble breathing. No chest pain no abdominal discomfort. Vitals/I&O/Wt Last Vital Signs Temp 97.5 F L 10/22/20 20:00 Pulse 84 10/22/20 20:57 Resp 16 10/22/20 22:40 BP 131/79 10/22/20 20:00 Pulse Ox 94 10/22/20 20:57 10/22/20 10/22/20 10/23/20 14:59 22:59 06:59 Intake Total 460 / 460 840 / 1300 Output Total 450 / 450 400 / 850 Balance 440 / 450 Physical Exam Const: COMMON NORMALS: no acute distress, patient oriented x3 and alert GENERAL APPEARANCE: frail appearing ORIENTATION/CONSCIOUSNESS: Yes awake HENMT: COMMON NORMALS: oropharynx normal Neck/C-Spine: COMMON NORMALS: no JVD Resp: COMMON NORMALS: normal respiratory effort and clear to auscultation bilaterally AUSCULTATION: clear to auscultation bilaterally Cardio: COMMON NORMALS: no JVD, regular rhythm, S1 normal heart sound present, S2 normal heart sound present and No murmurs present (Cardio) RHYTHM: regular rhythm HEART SOUNDS: S1 normal heart sound present and S2 normal heart sound present GI: COMMON NORMALS: Normal to inspection, nondistended, normoactive bowel sounds present, Soft to palpation and non-tender PALPATION: Yes Soft to palpation Extremity: COMMON NORMALS: no joint enlargement and no pedal edema NARRATIVE EXTREMITY EXAM: Left foot in a protective brace. Ulceration on plantar surface of the right foot on the heel, small ulceration at distal/ant erior plantar right foot. No surrounding erythema. OTHER: Left foot dressed in fresh postoperative dressing. Neuro: COMMON NORMALS: patient oriented x3 and moves all extremities SENSORIUM/ORIENTATION: Yes alert Skin: COMMON NORMALS: no rashes or lesions noted GENERAL SKIN EXAM: no rashes or lesions noted OTHER: Foot ulcers. Dry scaly skin of lower extremities. Data : 10/22/20 06:51 10/22/20 06:51 Micro: Microbiology 10/20/20 02:55 Urine Culture - Preliminary Urine,Voided Yeast 10/20/20 09:55 Gram Stain - Final Tissue Wound Culture - Preliminary Proteus mirabilis Staphylococcus aureus Enterococcus species 10/20/20 09:55 Gram Stain - Final Foot - #2 Tissue Culture - Preliminary Proteus mirabilis 10/17/20 20:55 Blood Culture - Preliminary Blood Bacillus sp not b. anthracis Bacteroides fragilis Proteus mirabilis 10/17/20 20:48 Blood Culture - Preliminary Blood Bacillus sp not b. anthracis Bacteroides fragilis Proteus mirabilis A&P Assessment and plan (1) Sepsis: Unfortunately developed a rash overnight after Flagyl dose. Flagyl discontinued. Change to Primaxin. Continue at this time. On discharge perhaps could transition to meropenem. Continue daptomycin. Follow-up initial and repeat cultures. PICC line placement on Friday, IV antibiotics after discharge for at least 6 weeks. May benefit from peripheral angiogram. Arterial duplex appears to be back, NICHELLE on the right 0.9, but it is 0.5 on the left. Arrangements for correction facility placement. Sources: Left lower extremity wound infection, cellulitis. Status post debridement of the wound and gangrene. Bone exposure to necrotic tissue. Bone biopsy obtained. Chronic wounds left heel, right heel and forefoot on the plantar surface. Urinalysis 5-10 WBC. Follow-up culture appears to be growing 50-60,000 yeast. Add Diflucan Speech therapy due to some episodes of possible aspiration. History of cleft palate. Monitor for aspiration pneumonia Status: Acute Qualifiers: Sepsis type: sepsis due to unspecified organism Sepsis acute organ dysfunction status: unspecified Qualified Code(s): A41.9 - Sepsis, unspecified organism (2) Fever: As above. Status: Acute Qualifiers: Fever type: unspecified Qualified Code(s): R50.9 - Fever, unspecified (3) Weakness: Secondary to acute infection, bacteremia, also noted history of cardiomyopathy, CHF. Treat as above. Mobilize with physical deconditioning, would benefit from rehabilitation. Discharge planning working with him and family with regards to placement. Status: Acute (4) Venous stasis ulcers of both lower extremities: Status: Acute (5) Cellulitis: Status: Acute (6) Hypothyroid: Status: Acute (7) Anemia: Status: Acute Qualifiers: Anemia type: due to chronic kidney disease Chronic kidney disease stage: unspecified stage Qualified Code(s): N18.9 - Chronic kidney disease, unspecified; D63.1 - Anemia in chronic kidney disease (8) CKD (chronic kidney disease): Acute kidney injury appears to be improving with changing antibiotics, improvement in sepsis. Status: Acute Qualifiers: Chronic kidney disease stage: stage 3 (moderate) Qualified Code(s): N18.3 - Chronic kidney disease, stage 3 (moderate) (9) Type 2 diabetes mellitus: Glucose somewhat variable, but does go as low as 100. Would not add long-acting insulin for now. Continue insulin sliding scale, monitor glucose. Consistent carbohydrate diet. Status: Acute Qualifiers: Diabetes mellitus intermediate school teacher insulin use: without intermediate school teacher use Diabetes mellitus complication status: without complication Qualified Code(s): E11.9 - Type 2 diabetes mellitus without complications (10) Yeast UTI: Status: Acute (11) Elevated troponin: Appreciate cardiology recommendations and medication changes. Plan for additional assessment by stress testing tomorrow. Status: Acute Additional A&P Information CHF without acute exacerbation continue Lasix 40 twice daily, hold spironolactone Chronic hyponatremia Attestations Medical Necessity Statement*: Continue admission for assessment of management of gram-negative anaerobic bacteremia, sepsis, left heel wound status post debridement of gangrene, with bone exposure, in the setting of diabetes, additional assessment of troponin elevation, possible NSTEMI, yeast UTI, arrangements for PICC line and post discharge planning. Coding Level of Care Code Acute Beef Boner for [facility] Fwd Diagnoses Sepsis A41.9 Sepsis type: sepsis due to unspecified organism Sepsis acute organ dysfunction status: unspecified Fever R50.9 Fever type: unspecified Weakness R53.1 Venous stasis ulcers of both lower extremities I83.019; I83.029; L97.919; L97.929 Cellulitis L03.90 Hypothyroid E03.9 Anemia N18.9; D63.1 Anemia type: due to chronic kidney disease Chronic kidney disease stage: unspecified stage CKD (chronic kidney disease) N18.3 Chronic kidney disease stage: stage 3 (moderate) Type 2 diabetes mellitus E11.9 Diabetes mellitus nursing home insulin use: without intermediate school teacher use Diabetes mellitus complication status: without complication Yeast UTI B37.49 Elevated troponin R77.8
[2020-10-23] VITALS (11 sets, daily range): BP systolic 115–130; BP diastolic 67–75; PULSE 70–98; RESP 16–20; TEMP 36.4–37.1; O2SAT 94–97
[2020-10-23] MEDS: fluconazole premix 100 MG in empty flexible container 1 EACH 50 MG IV (00:12)
[2020-10-23] MEDS: heparin 5,000 unit/mL INJ 1 mL 5000 UNIT SUBCUT ×3 (01:32→17:34)
[2020-10-23] MEDS: HYDROmorphone 1 mg/mL INJ 1 mL 0.75 MG IVP ×3 (03:39→14:09)
[2020-10-23 05:05] LABS: Basophils % 0.2 %; Eosinophils # 0.8 10^3/uL (0.0-0.8); Eosinophils % 8.5 %; Hematocrit 29.1 % (42.0-52.0); Hemoglobin 9.1 g/dL (11.7-16.6); Lymphocytes # 1.1 10^3/uL (0.8-4.8); Mean Corpuscular HGB Conc 31.3 g/dL (30.0-36.0); Mean Corpuscular Hemoglobin 28.3 pg (28.0-34.0); Mean Corpuscular Volume 90.7 fL (80-94); Mean Platelet Volume 10.3 fL (7.4-10.4); Monocytes # 0.5 10^3/uL (0.2-0.9); Monocytes % 5.7 %; Neutrophils # 6.76 10^3/uL (1.8-7.7); Neutrophils % 72.6 %; Nucleated Red Blood Cells % 0 %; Platelet Count 261 10^3/cmm (130-400); Red Blood Count 3.21 10^6/uL (4.1-5.3); Red Cell Distribution Width 17.1 % (12.1-15.1); White Blood Count 9.3 10^3/uL (4.0-10.0)
[2020-10-23 05:33] LABS: Alanine Aminotransferase 16 U/L (0-41); Albumin Level 2.8 g/dL (3.5-5.2); Alkaline Phosphatase 128 IU/L (40-130); Anion Gap 12.9 (5-19); Aspartate Amino Transferase 16 U/L (0-40); Blood Urea Nitrogen 39 mg/dL (8-23); Calcium 8.5 mg/dL (8.5-10.5); Carbon Dioxide 26 mmol/L (22-29); Chloride 102 mmol/L (98-107); Globulin 3.7 g/dL (1.3-4.6); Glucose 110 mg/dL (65-115); Osmolality Calculated 294 mOsm/kg (285-295); Potassium 3.9 mmol/L (3.5-5.1); Sodium 137 mmol/L (136-145); Total Bilirubin 0.4 mg/dL (0.15-1.2); Total Protein 6.5 g/dL (6.6-8.7)
[2020-10-23 06:17] LABS: Glucose Point of Care 137 mg/dL (70-110)
--- NOTE | 2020-10-23 07:11 | NMCV_ITS ---
NM pascual perf SPECT r/s* [id number] Rhett Cotto Age: 79 Gender: M : 1940 Exam Date: 10/23/2020 11:33 Ordering Phys: Ashlie Kirk MD ([email or web address]) Technologist: DONTRELL [place] Exam Location: [facility] Indications: SEPSIS STRESS TEST Please [facility] IMAGE PROTOCOL Rest/Stress 1 Lexiscan Day Radiopharmaceutical Dose (mCi) Administration Site Administered by Rest: Tc-99m 10.5 IV DONTRELL [place] Sestamibi Stress:Tc-99m 33.0 IV DONTRELL [place] Sestamibi Rest: 23-Oct-2020 Discovery 630 Stress: 23-Oct-2020 Discovery 630 0.4mg Lexiscan. Supine position only as patient was unable to lay prone. SPECT RESULTS Technical Quality: Excellent Raw Data Analysis: Normal Image Corrections: No attenuation or motion correction applied Summed Stress Score: 16 Summed Rest Score: 12 Summed Difference Score: 5 PERFUSION FINDINGS There is a large sized mostly fixed defect in the inferior wall with partial reversibility. This is consistent with prior infarct with singificant augustin- infarct ischemia in the RCA territory. Patient has reversible perfusion defect of the apical and apical inferior zepeda. This represents ischemia FUNCTIONAL RESULTS (calculated via Gated SPECT) Stress Image LV EF (%): 49 Stress EDV (mL):161 TID: 1.01 Stress ESV (mL):82 FUNCTIONAL FINDINGS: LV systolic function is mild to moderately reduced IMPRESSIONS 1. Abnormal myocardial perfusion imaging. 2. 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 3. Ischemia noted in apical and apical inferior zepeda. 4. LV systolic function is mild to moderately reduced Lenin Shaffer MD (Electronically Signed) Final Date: 24 October 2020 10:38 S
--- NOTE | 2020-10-23 07:11 | ECG_ITS ---
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 Interpretive Statements NAME OF STUDY: LEXISCAN SESTAMIBI STRESS TEST INDICATION: Chest Pain, PROCEDURE: At the baseline, the EKG revealed possible sinus rhythm with a frequent PVCs in the form of isolated beats and couplets. Diffuse nonspecific ST-T changes. Some features of LVH. Left axis deviation. Poor R wave progression. the baseline blood pressure was 131/76 mm Hg with a heart rate of 81 beats/min. Lexiscan was infused over a period of 20 seconds. A total of 0.4 milligrams of Lexiscan was infused. The stress phase was continued for a total of 5 minutes. Heart rate at the end of the stress phase was 96 with a blood pressure 131/72. The EKG at the peak infusion revealed almost total disappearance of the ventricular arrhythmia. Sestamibi was injected 20 seconds after the Lexiscan infusion. Blood pressure at the end of the recovery phase was 129/73 with a heart rate of 93 per minute. CONCLUSION: 1. No significant EKG changes with the LexiScan infusion 2. No LexiScan induced chest pain . the ventricular arrhythmia almost disappeared with the Lexiscan infusion. 3. Normal blood pressure and heart rate response 4. Sestamibi/sestamibi perfusion scan pending; see separate report. Electronically Signed On 10-26-2020 8:35:31 CDT by Ashlie Kirk M.D. [id number]
--- NOTE | 2020-10-23 07:49 | P.PN_ITS ---
Subjective Subjective: Interval history: Patient seen bedside this morning, 3 days status post incision and debridement left heel with bone biopsy of the left calcaneus. Denies any acute events overnight. Tolerating regular diet. Pain under control. Patient denies any subjective nausea, vomiting, fever, chills, shortness of breath or chest pain. Is wearing offloading boots. Vitals/I&O/Wt Last Vital Signs Temp 97.6 F 10/23/20 07:27 Pulse 98 10/23/20 07:27 Resp 19 H 10/23/20 07:27 BP 118/69 10/23/20 07:27 Pulse Ox 94 10/23/20 07:27 10/22/20 10/23/20 10/23/20 22:59 06:59 14:59 Intake Total 840 / 1300 250 / 1550 Output Total 400 / 850 1300 / 2150 Balance 440 / 450 -1050 / -600 Physical Exam Narrative: EXAM NARRATIVE: Patient is alert and oriented ?3 and in no acute distress. The following is a focused bilateral lower extremity exam. VASCULAR: Dorsalis pedis palpable posterior tibial arteries palpable. Capillary refill time less than 5 seconds to the distal hallux bilaterally. Calf is supple and nontender proximally and distally. Pitting edema to lower extremities left greater than right. Diminished pedal hair growth bilaterally. NEUROLOGICAL: Protective sensation intact 0/10 sites, tested with Xenia Rosendo nstein monofilament to bilateral feet. DERMATOLOGICAL: Venous stasis ulcerations resolving bilateral legs limited to breakdown of skin. Cellulitis to the distal one third of the left leg source is from the left heel improving. Increased granulation tissue without erythema or purulence at the right heel wound. Left heel wound exposed bone, no purulent drainage improved erythema. Left posterior heel wound 6 cm x 5 cm x 1.5 cm 50% granular 50% fibrotic. Healthy granular wound to the right plantar heel improving with epithelialized margin no surrounding erythema, warmth or drainage measures 2 cm x 1.8 cm x 0.2 cm. MUSCULOSKELETAL: Tenderness at left heel. Hammertoe deformities 2 through 5 bilaterally are reducible. Ankle joint dorsiflexion is to neutral. No pain with posterior calf squeeze bilaterally. Data : 10/23/20 04:37 10/23/20 04:37 Micro: Microbiology 10/20/20 02:55 Urine Culture - Preliminary Urine,Voided Yeast 10/20/20 09:55 Gram Stain - Final Tissue Wound Culture - Preliminary Proteus mirabilis Staphylococcus aureus Enterococcus species 10/20/20 09:55 Gram Stain - Final Foot - #2 Tissue Culture - Preliminary Proteus mirabilis 10/17/20 20:55 Blood Culture - Preliminary Blood Bacillus sp not b. anthracis Bacteroides fragilis Proteus mirabilis 10/17/20 20:48 Blood Culture - Preliminary Blood Bacillus sp not b. 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 Sepsis resolved. -Incision and debridement left heel with bone biopsy of left calcaneus performed 10/20/20 -Will need to offload bilateral heels at all times while at rest during this hospitalization as well as at discharge/transfer. PODUS boots will need to be utilized -Currently receiving empiric IV antibiotics, bone culture pending, growing staph, proteus and enterococcus -Quarter percent Dakin solution wet to dry dressing change 3 times daily left heel wound during this hospitalization. -Silver alginate to right heel wound once daily dressing change. 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 Okay for discharge/transfer from podiatry standpoint. Dr. 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
[2020-10-23] MEDS: FUROsemide 40 mg Tablet PO ×2 (09:48→17:34)
[2020-10-23] MEDS: pantoprazole DR 40 mg Tablet PO (09:48)
[2020-10-23] MEDS: aspirin 81 mg EC Tablet PO (09:48)
[2020-10-23] MEDS: potassium chloride ER 20 mEq Tablet PO (09:48)
[2020-10-23] MEDS: levothyroxine 75 mcg Tablet 150 MCG PO (09:48)
[2020-10-23] MEDS: clopidogrel 75 mg Tablet PO (09:48)
[2020-10-23 10:40] LABS: Glucose Point of Care 140 mg/dL (70-110)
--- NOTE | 2020-10-23 10:45 | ECG_ITS ---
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 Measurements Intervals [place] Rate: 79 P: -3 GA: 252 QRS: -38 QRSD: 150 T: 155 QT: 463 QTc: 533 Interpretive Statements SINUS RHYTHM WITH FIRST DEGREE AV BLOCK WITH OCCASIONAL VENTRICULAR PREMATURE COMPLEXES MARKED LEFT AXIS DEVIATION [QRS AXIS < -30] LEFT BUNDLE BRANCH BLOCK [120+ ms QRS DURATION, 80+ ms Q/S IN V1/V2, 85+ ms R IN I/aVL/V5/V6] Compared to ECG 10/21/2020 14:33:38 Left-axis deviation now present Left bundle-branch block now present Ventricular premature complex(es) no longer present Intraventricular conduction delay no longer present Myocardial infarct finding no longer present Electronically Signed On 10-26-2020 21:09:08 CDT by Donna Navarrete M.D. [id number]
[2020-10-23] MEDS: regadenoson 0.4 Mg/5 ml Syringe IVP (12:26)
[2020-10-23] MEDS: ondansetron 2 mg/ML SDV 2 mL 4 MG IVP (12:33)
--- NOTE | 2020-10-23 15:12 | PM.PN ---
Subjective Subjective: Interval history: Patient was seen this morning, he tells me that he is hungry this morning, he did have some mild chest earlier on this morning, none currently, no shortness of breath, no lightheadedness, dizziness, will have his PICC line placed today, is awaiting his cardiac stress testing, he still waiting on detention placement, no fevers, no cough, no new rashes overnight Vitals/I&O/Wt Last Vital Signs Temp 97.6 F 10/23/20 15:00 Pulse 85 10/23/20 15:00 Resp 19 H 10/23/20 15:00 BP 126/67 10/23/20 15:00 Pulse Ox 97 10/23/20 15:00 10/23/20 10/23/20 10/23/20 06:59 14:59 22:59 Intake Total 250 / 1550 200 / 200 Output Total 1300 / 2150 250 / 250 Balance -1050 / -600 -50 / -50 Physical Exam Const: COMMON NORMALS: no acute distress and patient oriented x3 HENMT: COMMON NORMALS: normocephalic HEAD & SCALP: normocephalic Neck/C-Spine: COMMON NORMALS: no JVD Resp: COMMON NORMALS: normal respiratory effort, No retractions, No use of accessory muscles and clear to auscultation bilaterally AUSCULTATION: clear to auscultation bilaterally Cardio: COMMON NORMALS: no JVD, regular rate, regular rhythm, S1 normal heart sound present and S2 normal heart sound present RATE: regular rate RHYTHM: regular rhythm HEART SOUNDS: S1 normal heart sound present and S2 normal heart sound present GI: COMMON NORMALS: Normal to inspection, nondistended, normoactive bowel sounds present, Soft to palpation, non-tender, No hepatosplenomegaly present, no masses and no bruits PALPATION: Yes Soft to palpation and Yes No hepatosplenomegaly present Extremity: NARRATIVE EXTREMITY EXAM: Bilateral lower extremities wrapped, Cam boots Neuro: COMMON NORMALS: patient oriented x3 Psych: COMMON NORMALS: mental status grossly normal Data : 10/23/20 04:37 10/23/20 04:37 Micro: Microbiology 10/20/20 09:55 Gram Stain - Final Tissue Wound Culture - Final Proteus mirabilis Methicillin Resis Staph Aureus Enterococcus faecalis 10/20/20 09:55 Gram Stain - Final Foot - #2 Tissue Culture - Final Proteus mirabilis 10/17/20 20:48 Blood Culture - Final Blood Bacillus sp not b. anthracis Bacteroides fragilis Proteus mirabilis 10/17/20 20:55 Blood Culture - Final Blood Bacillus sp not b. anthracis Bacteroides fragilis Proteus mirabilis A&P Assessment and plan (1) Sepsis: Secondary to left lower extremity wound infection, cellulitis, status post debridement of wound and gangrene, with bone evidence of osteomyelitis of the calcaneum, with bacteremia Also with evidence of urinary tract infection Plan: -We will have PICC line placed today -Continue Diflucan, switch to p.o. tomorrow -Currently on Primaxin and daptomycin -Dilaudid for pain -Tissue culture positive for Proteus, MRSA, Enterococcus, Proteus -Likely discharge on daptomycin, waiting on Proteus susceptibilities -Total of 6 weeks of IV antibiotics -Awaiting detention placement -NICHELLE on the right 0.9, 0.5 on the left, may benefit from angiogram as outpatient -Speech therapy due to some episodes of possible aspiration. History of cleft palate. Monitor for aspiration pneumonia -Full code -Heparin for DVT prophylaxis Status: Acute Qualifiers: Sepsis type: sepsis due to unspecified organism Sepsis acute organ dysfunction status: unspecified Qualified Code(s): A41.9 - Sepsis, unspecified organism (2) Fever: Afebrile for the last 72 hours Status: Acute Qualifiers: Fever type: unspecified Qualified Code(s): R50.9 - Fever, unspecified (3) Weakness: Secondary to acute infection, bacteremia, also noted history of cardiomyopathy, CHF. Treat as above. Mobilize with physical deconditioning, would benefit from rehabilitation. Discharge planning working with him and family with regards to placement. Status: Acute (4) Venous stasis ulcers of both lower extremities: Status: Acute (5) Cellulitis: Status: Acute (6) Hypothyroid: Status: Acute (7) Anemia: Status: Acute Qualifiers: Anemia type: due to chronic kidney disease Chronic kidney disease stage: unspecified stage Qualified Code(s): N18.9 - Chronic kidney disease, unspecified; D63.1 - Anemia in chronic kidney disease (8) CKD (chronic kidney disease): Acute kidney injury appears to be improving with changing antibiotics, improvement in sepsis. Status: Acute Qualifiers: Chronic kidney disease stage: stage 3 (moderate) Qualified Code(s): N18.3 - Chronic kidney disease, stage 3 (moderate) (9) Type 2 diabetes mellitus: Glucose somewhat variable, but does go as low as 100. Would not add long-acting insulin for now. Continue insulin sliding scale, monitor glucose. Consistent carbohydrate diet. Status: Acute Qualifiers: Diabetes mellitus fdc insulin use: without fdc use Diabetes mellitus complication status: without complication Qualified Code(s): E11.9 - Type 2 diabetes mellitus without complications (10) Yeast UTI: Status: Acute (11) Elevated troponin: -will undergo stress testing today -Is on aspirin, Plavix, metoprolol 12.5 twice daily -Continue telemetry monitoring, continue to monitor for chest pain Status: Acute Additional A&P Information CHF without acute exacerbation continue Lasix 40 twice daily, hold spironolactone Chronic hyponatremia Attestations Medical Necessity Statement*: Patient requires hospitalization for left lower extremity wound cellulitis, with bacteremia, status post debridement, calcaneal osteomyelitis, with elevated troponins, requiring IV antibiotics, detention placement, stress testing Coding Level of Care Code Acute 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 [facility] Fwd Diagnoses Sepsis A41.9 Sepsis type: sepsis due to unspecified organism Sepsis acute organ dysfunction status: unspecified Fever R50.9 Fever type: unspecified Weakness R53.1 Venous stasis ulcers of both lower extremities I83.019; I83.029; L97.919; L97.929 Cellulitis L03.90 Hypothyroid E03.9 Anemia N18.9; D63.1 Anemia type: due to chronic kidney disease Chronic kidney disease stage: unspecified stage CKD (chronic kidney disease) N18.3 Chronic kidney disease stage: stage 3 (moderate) Type 2 diabetes mellitus E11.9 Diabetes mellitus fdc insulin use: without fdc use Diabetes mellitus complication status: without complication Yeast UTI B37.49 Elevated troponin R77.8
--- NOTE | 2020-10-23 15:59 | PC.CHAP ---
Pastoral Care Encounter/Spiritual Assessment Type of Contact [] Declined fund accounting manager visit [] Patient/Family/Request visit [] Outpatient visit [] Follow-up visit [] Physician referral [] Code/Alert [] Routine visit [] Staff referral [] Actively dying [] Patient sleeping [] Family support [] [] Out of room [] Palliative care [] [] Receiving care in room [] Pre-surgical visit [] Trauma [] Long length of stay [] ICU visit [] Other: Relational/Emotional Strength [] Patient feels connected with others/family/visitors/staff [] Distress [] Loneliness/isolation [] Abandonment Spirituality of Patient [] Person of Shelli [] Attends Roman Catholic of their Shelli [] Believes in Prayer [] Reads Bible or Lutheran materials [] There are Spiritual issues to be addressed Food Chemist Interventions [] Prayer [] Active listening [] Non-anxious presence [] Spiritual/emotional support [] Crisis/trauma care [] Spiritual counseling [] Bereavement support [] Provided bereavement packet [] Provided Bible/devotional materials [] Provided toy/stuffed animal, coloring book to patient or family member [] Provided Communion [] Anointing/[place] [] Salvation [] Completed spiritual assessment [] Other: Impact on Illness or Injury [] Angry [] Fearful [] Anxious [] Often cries [] Exhaustion [] Unable to work [] Unable to attend mu-ism [] Unable to walk/stand [] Unable to read [] Unable to drive [] Unable to eat/drink [] Unable to sleep [] Unable to be with family [] Patient intubated [] Other: Summary went home Time spent with patient
--- NOTE | 2020-10-23 16:51 | PM.PN ---
Subjective Subjective: Interval history: Patient is doing well. He had stress test done today. Will be reviewed today. He says that he is not sure about getting invasive procedures and will let us know tomorrow after thinking about it. Vitals/I&O/Wt Last Vital Signs Temp 97.6 F 10/23/20 15:00 Pulse 85 10/23/20 15:00 Resp 19 H 10/23/20 15:00 BP 126/67 10/23/20 15:00 Pulse Ox 97 10/23/20 15:00 10/23/20 10/23/20 10/23/20 06:59 14:59 22:59 Intake Total 250 / 1550 200 / 200 400 / 600 Output Total 1300 / 2150 250 / 250 Balance -1050 / -600 -50 / -50 400 / 350 Physical Exam Const: COMMON NORMALS: no acute distress and patient oriented x3 HENMT: COMMON NORMALS: normocephalic HEAD & SCALP: normocephalic Neck/C-Spine: COMMON NORMALS: no JVD Resp: COMMON NORMALS: normal respiratory effort, No retractions, No use of accessory muscles and clear to auscultation bilaterally AUSCULTATION: clear to auscultation bilaterally Cardio: COMMON NORMALS: no JVD, regular rate, regular rhythm, S1 normal heart sound present and S2 normal heart sound present RATE: regular rate RHYTHM: regular rhythm HEART SOUNDS: S1 normal heart sound present and S2 normal heart sound present GI: COMMON NORMALS: Normal to inspection, nondistended, normoactive bowel sounds present, Soft to palpation, non-tender, No hepatosplenomegaly present, no masses and no bruits PALPATION: Yes Soft to palpation and Yes No hepatosplenomegaly present Extremity: NARRATIVE EXTREMITY EXAM: Bilateral lower extremities wrapped Neuro: COMMON NORMALS: patient oriented x3 Psych: COMMON NORMALS: mental status grossly normal Data : 10/24/20 05:24 10/24/20 05:24 Micro: Microbiology 10/20/20 09:55 Gram Stain - Final Tissue Wound Culture - Final Proteus mirabilis Methicillin Resis Staph Aureus Enterococcus faecalis 10/20/20 09:55 Gram Stain - Final Foot - #2 Tissue Culture - Final Proteus mirabilis 10/17/20 20:48 Blood Culture - Final Blood Bacillus sp not b. anthracis Bacteroides fragilis Proteus mirabilis 10/17/20 20:55 Blood Culture - Final Blood Bacillus sp not b. anthracis Bacteroides fragilis Proteus mirabilis A&P Assessment and plan (1) Elevated troponin: Troponin elevation possibly secondary to type 2 NE vs NSTEMI. On asprin and plavix. Pending stress test. Further recommendations based on the results. Status: Acute (2) Ischemic cardiomyopathy: Continue losartan. Will need to discuss the need for the ICD/Lifevest Status: Acute (3) ASHD (arteriosclerotic heart disease): After reviewing the myocardial perfusion imaging, further recommendations will be made. Status: Acute (4) Venous stasis ulcers of both lower extremities: Patient had a venous Doppler examination before he was found to have no evidence of DVT. Status: Acute (5) Sepsis: Patient is diagnosed with a gram-negative septicemia. Antibiotic treatment as per the primary. May continue with aggressive management of the leg ulcers. His blood culture grew bacteroids fragilis, Proteus mirabilis and bacillus Status: Acute Qualifiers: Sepsis type: sepsis due to unspecified organism Sepsis acute organ dysfunction status: unspecified Qualified Code(s): A41.9 - Sepsis, unspecified organism (6) Type 2 diabetes mellitus: Aggressive management of the diabetes, as per the primary. Status: Acute Qualifiers: Diabetes mellitus long-term insulin use: without long term acute care registered nurse use Diabetes mellitus complication status: without complication Qualified Code(s): E11.9 - Type 2 diabetes mellitus without complications (7) HTN (hypertension): Currently he is normotensive Status: Acute Qualifiers: Hypertension type: essential hypertension Qualified Code(s): I10 - Essential (primary) hypertension (8) Peripheral arterial disease: In view of the nonhealing ulcers, patient may benefit from peripheral angiogram and possible intervention. He was found to have an NICHELLE of 0.5 on the left side. He also has features of collateral filling of the dorsalis pedis artery on the right side. Will need to prioritize peripheral angiogram vs coronary angiogram based on results of stress test as patient's renal function is not normal and he has CKD Status: Acute (9) Bilateral leg edema: This could be multifactorial. Chronic systolic heart failure, chronic venous stasis, peripheral arterial disease, dependency, etc. are contributing factors. Patient may be carefully treated with diuretics. Continue managing the precipitating factors. 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 Thank you for the opportunity to evaluate this patient and make these recommendations. Attestations Medical Necessity Statement*: Care expected to cross 2 midnights. Coding Level of Care Code Acute Hose Maker for Chg Fwd Diagnoses Elevated troponin R77.8 Ischemic cardiomyopathy I25.5 ASHD (arteriosclerotic heart disease) I25.10 Venous stasis ulcers of both lower extremities I83.019; I83.029; L97.919; L97.929 Sepsis A41.9 Sepsis type: sepsis due to unspecified organism Sepsis acute organ dysfunction status: unspecified Type 2 diabetes mellitus E11.9 Diabetes mellitus long term acute care registered nurse insulin use: without long-term use Diabetes mellitus complication status: without complication HTN (hypertension) I10 Hypertension type: essential hypertension Peripheral arterial disease I73.9 Bilateral leg edema R60.0
[2020-10-23] MEDS: HYDROcodone-acetaminophen 5-325 mg Tablet 1 TAB PO ×2 (17:33→22:03)
[2020-10-23] MEDS: guaiFENesin 600 mg Tablet PO (17:34)
[2020-10-23 20:45] LABS: Glucose Point of Care 188 mg/dL (70-110)
[2020-10-23] MEDS: atorvastatin 40 mg Tablet PO (22:03)
[2020-10-23] MEDS: metoprolol tartrate 25 mg Tablet 12.5 MG PO (22:04)
[2020-10-24] VITALS (8 sets, daily range): BP systolic 113–127; BP diastolic 65–75; PULSE 63–81; RESP 17–18; TEMP 36–37.2; O2SAT 93–97
[2020-10-24] MEDS: heparin 5,000 unit/mL INJ 1 mL 5000 UNIT SUBCUT ×3 (00:27→17:35)
[2020-10-24] MEDS: fluconazole premix 100 MG in empty flexible container 1 EACH 50 MG IV (00:27)
[2020-10-24] MEDS: oxyCODONE 5 mg IR Tab/Cap 10 MG PO ×2 (01:56→11:57)
[2020-10-24] MEDS: HYDROcodone-acetaminophen 5-325 mg Tablet 1 TAB PO ×2 (04:43→19:45)
[2020-10-24 05:45] LABS: Basophils % 0.3 %; Eosinophils # 0.7 10^3/uL (0.0-0.8); Eosinophils % 8.2 %; Hematocrit 28.4 % (42.0-52.0); Hemoglobin 8.8 g/dL (11.7-16.6); Lymphocytes # 1.2 10^3/uL (0.8-4.8); Lymphocytes % 13.6 %; Mean Corpuscular Hemoglobin 28.6 pg (28.0-34.0); Mean Corpuscular Volume 92.2 fL (80-94); Mean Platelet Volume 10.9 fL (7.4-10.4); Monocytes # 0.7 10^3/uL (0.2-0.9); Monocytes % 7.7 %; Neutrophils % 69.5 %; Nucleated Red Blood Cells % 0 %; Platelet Count 254 10^3/cmm (130-400); Red Blood Count 3.08 10^6/uL (4.1-5.3); Red Cell Distribution Width 17.3 % (12.1-15.1); White Blood Count 8.9 10^3/uL (4.0-10.0)
[2020-10-24 06:26] LABS: Alanine Aminotransferase 13 U/L (0-41); Albumin Level 2.9 g/dL (3.5-5.2); Alkaline Phosphatase 124 IU/L (40-130); Anion Gap 11.8 (5-19); Aspartate Amino Transferase 15 U/L (0-40); Blood Urea Nitrogen 37 mg/dL (8-23); Calcium 8.8 mg/dL (8.5-10.5); Carbon Dioxide 28 mmol/L (22-29); Chloride 102 mmol/L (98-107); Globulin 3.5 g/dL (1.3-4.6); Glucose 92 mg/dL (65-115); Osmolality Calculated 294 mOsm/kg (285-295); Potassium 3.8 mmol/L (3.5-5.1); Sodium 138 mmol/L (136-145); Total Bilirubin 0.3 mg/dL (0.15-1.2); Total Protein 6.4 g/dL (6.6-8.7)
[2020-10-24 06:52] LABS: Glucose Point of Care 104 mg/dL (70-110)
[2020-10-24] MEDS: aspirin 81 mg EC Tablet PO (08:38)
[2020-10-24] MEDS: levothyroxine 75 mcg Tablet 150 MCG PO (08:38)
[2020-10-24] MEDS: clopidogrel 75 mg Tablet PO (08:39)
[2020-10-24] MEDS: pantoprazole DR 40 mg Tablet PO (08:39)
[2020-10-24] MEDS: potassium chloride ER 20 mEq Tablet PO (08:39)
[2020-10-24] MEDS: FUROsemide 40 mg Tablet PO ×2 (08:39→17:35)
[2020-10-24] MEDS: metoprolol tartrate 25 mg Tablet 12.5 MG PO ×2 (08:45→20:08)
--- NOTE | 2020-10-24 08:55 | XRR_ITS ---
PROCEDURE INFORMATION: Exam: XR Chest Exam date and time: 10/24/2020 10:07 AM Age: 79 years old Clinical indication: Device placement; Picc; Prior surgery; Additional info: Picc placement TECHNIQUE: Imaging protocol: XR of the chest Views: 1 view. COMPARISON: CR (CHEST, ) 10/21/2020 2:49 PM FINDINGS: Tubes, catheters and devices: A right arm PICC is present with the tip in the SVC. Lungs: Unremarkable. No consolidation. Pleural spaces: Unremarkable. No pleural effusion. No pneumothorax. Heart/Mediastinum: The cardiac silhouette is enlarged but unchanged. There is calcification of the aortic arch. Bones/joints: Unremarkable. XR/XR chest 1V portable [id number] IMPRESSION: 1. Satisfactory PICC position in the SVC. 2. Stable cardiomegaly.
--- NOTE | 2020-10-24 08:58 | PC.SOCIAL ---
IMM Updated Updated pt on Pg 2 IMM. No questions voiced. Provided pt a copy. Signed, dated, & timed a copy & placed in chart.
[2020-10-24 11:11] LABS: Glucose Point of Care 178 mg/dL (70-110)
--- NOTE | 2020-10-24 13:17 | P.PN_ITS ---
Subjective Subjective: Interval history: Patient is feeling well. He had stress test done yesterday that is abnormal however does not show a large area of ischemia,he denies chest pain currently. Patient wants to be discharged and get further treamtment at [facility] Vitals/I&O/Wt Last Vital Signs Temp 97.0 F L 10/24/20 11:08 Pulse 63 10/24/20 11:08 Resp 17 10/24/20 11:57 BP 116/73 10/24/20 11:08 Pulse Ox 97 10/24/20 07:20 10/23/20 10/24/20 10/24/20 22:59 06:59 14:59 Intake Total 740 / 940 250 / 1190 340 / 340 Output Total 450 / 700 250 / 950 Balance 290 / 240 0 / 240 340 / 340 Physical Exam Const: COMMON NORMALS: no acute distress and patient oriented x3 HENMT: COMMON NORMALS: normocephalic HEAD & SCALP: normocephalic Neck/C-Spine: COMMON NORMALS: no JVD Resp: COMMON NORMALS: normal respiratory effort, No retractions, No use of accessory muscles and clear to auscultation bilaterally AUSCULTATION: clear to auscultation bilaterally Cardio: COMMON NORMALS: no JVD, regular rate, regular rhythm, S1 normal heart sound present and S2 normal heart sound present RATE: regular rate RHYTHM: regular rhythm HEART SOUNDS: S1 normal heart sound present and S2 normal heart sound present GI: COMMON NORMALS: Normal to inspection, nondistended, normoactive bowel sounds present, Soft to palpation, non-tender, No hepatosplenomegaly present, no masses and no bruits PALPATION: Yes Soft to palpation and Yes No hepatosplenomegaly present Extremity: NARRATIVE EXTREMITY EXAM: Bilateral lower extremities wrapped Neuro: COMMON NORMALS: patient oriented x3 Psych: COMMON NORMALS: mental status grossly normal Data : 10/25/20 02:45 10/25/20 02:45 Micro: Microbiology 10/20/20 02:55 Urine Culture - Final Urine,Voided Kiki albicans 10/20/20 09:55 Gram Stain - Final Tissue Wound Culture - Final Proteus mirabilis Methicillin Resis Staph Aureus Enterococcus faecalis 10/20/20 09:55 Gram Stain - Final Foot - #2 Tissue Culture - Final Proteus mirabilis 10/17/20 20:48 Blood Culture - Final Blood Bacillus sp not b. anthracis Bacteroides fragilis Proteus mirabilis 10/17/20 20:55 Blood Culture - Final Blood Bacillus sp not b. anthracis Bacteroides fragilis Proteus mirabilis A&P Assessment and plan (1) Elevated troponin: Troponin elevation possibly secondary to type 2 NC vs NSTEMI. On asprin and plavix. Stress test shows inferior wall infarct with some augustin-infarct ischemia and ischemia of the apical zepeda. Patient is chest pain free at this time. Patient does not want to get further care here at our hospital and wants to be discharged and wants to go to [facility] for further care. Status: Acute (2) Ischemic cardiomyopathy: Continue losartan. Will benefit from ICD Status: Acute (3) ASHD (arteriosclerotic heart disease): After reviewing the myocardial perfusion imaging, further recommendations will be made. Status: Acute (4) Venous stasis ulcers of both lower extremities: Patient had a venous Doppler examination before he was found to have no evidence of DVT. Status: Acute (5) Sepsis: Patient is diagnosed with a gram-negative septicemia. Antibiotic treatment as per the primary. May continue with aggressive management of the leg ulcers. His blood culture grew bacteroids fragilis, Proteus mirabilis and bacillus Status: Acute Qualifiers: Sepsis type: sepsis due to unspecified organism Sepsis acute organ dysfunction status: unspecified Qualified Code(s): A41.9 - Sepsis, unspecified organism (6) Type 2 diabetes mellitus: Aggressive management of the diabetes, as per the primary. Status: Acute Qualifiers: Diabetes mellitus mcc insulin use: without marine oil terminal superintendent use Diabetes mellitus complication status: without complication Qualified Code(s): E11.9 - Type 2 diabetes mellitus without complications (7) HTN (hypertension): Currently he is normotensive Status: Acute Qualifiers: Hypertension type: essential hypertension Qualified Code(s): I10 - Essential (primary) hypertension (8) Peripheral arterial disease: In view of the nonhealing ulcers, patient may benefit from peripheral angiogram and possible intervention. He was found to have an NICHELLE of 0.5 on the left side. He also has features of collateral filling of the dorsalis pedis artery on the right side. Patient wants further care in [facility] Status: Acute (9) Bilateral leg edema: This could be multifactorial. Chronic systolic heart failure, chronic venous stasis, peripheral arterial disease, dependency, etc. are contributing factors. Patient may be carefully treated with diuretics. Continue managing the precipitating factors. 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 Thank you for the opportunity to evaluate this patient and make these recommendations. Attestations Medical Necessity Statement*: Care expected to cross 2 midnights Coding Level of Care Code Acute Director Global Strategic Publisher Sales for Chg Fwd Diagnoses Elevated troponin R77.8 Ischemic cardiomyopathy I25.5 ASHD (arteriosclerotic heart disease) I25.10 Venous stasis ulcers of both lower extremities I83.019; I83.029; L97.919; L97.929 Sepsis A41.9 Sepsis type: sepsis due to unspecified organism Sepsis acute organ dysfunction status: unspecified Type 2 diabetes mellitus E11.9 Diabetes mellitus mcc insulin use: without mcc use Diabetes mellitus complication status: without complication HTN (hypertension) I10 Hypertension type: essential hypertension Peripheral arterial disease I73.9 Bilateral leg edema R60.0
--- NOTE | 2020-10-24 13:56 | PM.PN ---
Subjective Subjective: Interval history: This morning patient was examined, he is having his PICC line placed, overnight denies any chest pain, no palpitations, no lightheadedness, dizziness, nausea, vomiting, he is awaiting detention placement, is a bit anxious about that Patient had a discussion with Dr. Shaffer about doing a peripheral angiogram given his evidence of peripheral arterial disease, to improve wound healing given his osteomyelitis, and given his positive stress test, to discuss pursuing angiogram, however patient refused performing angiogram at [facility], he would like a second opinion at [facility] I had a discussion with patient and his daughter at bedside, I advised that it would be in his best interest to pursue the peripheral angiogram here at [facility], as he has evidence of peripheral arterial disease, and has ongoing osteomyelitis and left lower extremity cellulitis to improve wound healing, to improve his outcome. Currently it is not urgently required, but it would improve his outcome advised of the risk and benefits, voiced understanding, all questions answered, declined performing a peripheral angiogram here, would like one done at [facility] as outpatient, will refer to [facility] cardiology/vascular surgery as outpatient Patient had a stress test yesterday, which was abnormal, Dr. Shaffer has recommended for coronary angiography, however patient has declined. I advised patient that certainly if we were to perform it during this hospitalization, it would improve his clinical outcome, we could detect coronary artery disease sooner, improve his morbidity and mortality, but currently is not urgently required, as he is chest pain-free. Advised of the risk and benefits, voiced understanding, all questions answered, declined coronary angiography at [facility]. Patient would like to do his cardiac testing at [facility], would like a second opinion, will refer to [facility] cardiology at discharge unless there is an urgent need to perform angiography during this hospitalization. Vitals/I&O/Wt Last Vital Signs Temp 97.0 F L 10/24/20 11:08 Pulse 63 10/24/20 11:08 Resp 17 10/24/20 11:57 BP 116/73 10/24/20 11:08 Pulse Ox 97 10/24/20 07:20 10/23/20 10/24/20 10/24/20 22:59 06:59 14:59 Intake Total 740 / 940 250 / 1190 580 / 580 Output Total 450 / 700 250 / 950 Balance 290 / 240 0 / 240 580 / 580 Physical Exam Const: COMMON NORMALS: no acute distress and patient oriented x3 HENMT: COMMON NORMALS: normocephalic HEAD & SCALP: normocephalic Neck/C-Spine: COMMON NORMALS: no JVD Resp: COMMON NORMALS: normal respiratory effort, No retractions, No use of accessory muscles and clear to auscultation bilaterally AUSCULTATION: clear to auscultation bilaterally Cardio: COMMON NORMALS: no JVD, regular rate, regular rhythm, S1 normal heart sound present and S2 normal heart sound present RATE: regular rate RHYTHM: regular rhythm HEART SOUNDS: S1 normal heart sound present and S2 normal heart sound present GI: COMMON NORMALS: Normal to inspection, nondistended, normoactive bowel sounds present, Soft to palpation, non-tender, No hepatosplenomegaly present, no masses and no bruits PALPATION: Yes Soft to palpation and Yes No hepatosplenomegaly present Extremity: COMMON NORMALS: no calf tenderness NARRATIVE EXTREMITY EXAM: Bilateral extremity in Cam boot, wrapped and bandaged Neuro: COMMON NORMALS: patient oriented x3 Psych: COMMON NORMALS: mental status grossly normal Data : 10/24/20 05:24 10/24/20 05:24 Micro: Microbiology 10/20/20 02:55 Urine Culture - Final Urine,Voided Kiki albicans 10/20/20 09:55 Gram Stain - Final Tissue Wound Culture - Final Proteus mirabilis Methicillin Resis Staph Aureus Enterococcus faecalis 10/20/20 09:55 Gram Stain - Final Foot - #2 Tissue Culture - Final Proteus mirabilis 10/17/20 20:48 Blood Culture - Final Blood Bacillus sp not b. anthracis Bacteroides fragilis Proteus mirabilis 10/17/20 20:55 Blood Culture - Final Blood Bacillus sp not b. 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 Diflucan -Currently on Primaxin and daptomycin, will likely be discharged on vancomycin and Levaquin -[place] for pain, morphine as needed -Tissue culture positive for Proteus, MRSA, Enterococcus, Proteus -Total of 6 weeks of IV antibiotics starting on 10/20 -Awaiting detention placement -NICHELLE on the right 0.9, 0.5 on the left, has declined angiogram as inpatient, discussed risk and benefits, voiced understanding, all questions answered, will refer to [facility] as outpatient -Speech therapy due to some episodes of possible aspiration. History of cleft palate. Monitor for aspiration pneumonia -Full code -Heparin for DVT prophylaxis Status: Acute Qualifiers: Sepsis type: sepsis due to unspecified organism Sepsis acute organ dysfunction status: unspecified Qualified Code(s): A41.9 - Sepsis, unspecified organism (2) Fever: Afebrile for the last 72 hours Status: Acute Qualifiers: Fever type: unspecified Qualified Code(s): R50.9 - Fever, unspecified (3) Weakness: Secondary to acute infection, bacteremia, also noted history of cardiomyopathy, CHF. Treat as above. Mobilize with physical deconditioning, would benefit from rehabilitation. Discharge planning working with him and family with regards to placement. Status: Acute (4) Venous stasis ulcers of both lower extremities: Status: Acute (5) Cellulitis: Status: Acute (6) Hypothyroid: Status: Acute (7) Anemia: Status: Acute Qualifiers: Anemia type: due to chronic kidney disease Chronic kidney disease stage: unspecified stage Qualified Code(s): N18.9 - Chronic kidney disease, unspecified; D63.1 - Anemia in chronic kidney disease (8) CKD (chronic kidney disease): Acute kidney injury appears to be improving with changing antibiotics, improvement in sepsis. Status: Acute Qualifiers: Chronic kidney disease stage: stage 3 (moderate) Qualified Code(s): N18.3 - Chronic kidney disease, stage 3 (moderate) (9) Type 2 diabetes mellitus: Glucose somewhat variable, but does go as low as 100. Would not add long-acting insulin for now. Continue insulin sliding scale, monitor glucose. Consistent carbohydrate diet. Status: Acute Qualifiers: Diabetes mellitus laborer marine terminal insulin use: without retirement use Diabetes mellitus complication status: without complication Qualified Code(s): E11.9 - Type 2 diabetes mellitus without complications (10) Yeast UTI: Status: Acute (11) Elevated troponin: -Positive stress test -There is a large sized mostly fixed defect in the inferior wall with partial reversibility. This is consistent with prior infarct with singificant augustin- infarct ischemia in the RCA territory. Patient has reversible perfusion defect of the apical and apical inferior zepeda. This represents ischemia -Currently chest pain-free -Is on aspirin, Plavix, metoprolol 12.5 twice daily -Continue telemetry monitoring, continue to monitor for chest pain -Declines inpatient coronary angiogram discussed the risk and benefits, voiced understanding, all questions answered, agreed to proceed for referral as outpatient -Wants to be referred as outpatient to [facility], cardiology for second opinion Status: Acute Additional A&P Information CHF without acute exacerbation continue Lasix 40 twice daily, hold spironolactone Chronic hyponatremia Attestations Medical Necessity Statement*: Patient requires hospitalization for left lower extremity cellulitis osteomyelitis, positive stress test Coding Level of Care Code Acute Pediatric Social Worker for g Fwd Diagnoses Sepsis A41.9 Sepsis type: sepsis due to unspecified organism Sepsis acute organ dysfunction status: unspecified Fever R50.9 Fever type: unspecified Weakness R53.1 Venous stasis ulcers of both lower extremities I83.019; I83.029; L97.919; L97.929 Cellulitis L03.90 Hypothyroid E03.9 Anemia N18.9; D63.1 Anemia type: due to chronic kidney disease Chronic kidney disease stage: unspecified stage CKD (chronic kidney disease) N18.3 Chronic kidney disease stage: stage 3 (moderate) Type 2 diabetes mellitus E11.9 Diabetes mellitus retirement insulin use: without retirement use Diabetes mellitus complication status: without complication Yeast UTI B37.49 Elevated troponin R77.8
[2020-10-24 16:35] LABS: Glucose Point of Care 104 mg/dL (70-110)
[2020-10-24] MEDS: atorvastatin 40 mg Tablet PO (20:08)
[2020-10-24 20:59] LABS: Glucose Point of Care 145 mg/dL (70-110)
--- NOTE | 2020-10-24 21:29 | PM.PN ---
Subjective Subjective: Interval history: Patient seen bedside this morning, 4 days status post incision and debridement left heel with bone biopsy of the left calcaneus. Denies any acute events overnight. His daughter is present. Pain under control. Patient denies any subjective nausea, vomiting, fever, chills, shortness of breath or chest pain. Is wearing offloading boots. Vitals/I&O/Wt Last Vital Signs Temp 98.9 F 10/24/20 19:16 Pulse 73 10/24/20 19:16 Resp 18 10/24/20 19:16 BP 113/70 10/24/20 19:16 Pulse Ox 97 10/24/20 19:16 10/24/20 10/24/20 10/24/20 06:59 14:59 22:59 Intake Total 250 / 1190 580 / 580 340 / 920 Output Total 250 / 950 400 / 400 Balance 0 / 240 580 / 580 -60 / 520 Physical Exam Narrative: EXAM NARRATIVE: Patient is alert and oriented ?3 and in no acute distress. The following is a focused bilateral lower extremity exam. VASCULAR: Dorsalis pedis palpable posterior tibial arteries palpable. Capillary refill time less than 5 seconds to the distal hallux bilaterally. Calf is supple and nontender proximally and distally. Pitting edema to lower extremities left greater than right. Diminished pedal hair growth bilaterally. NEUROLOGICAL: Protective sensation intact 0/10 sites, tested with [place] monofilament to bilateral feet. DERMATOLOGICAL: Venous stasis ulcerations resolving bilateral legs limited to breakdown of skin. Cellulitis to the distal one third of the left leg source is from the left heel improving. Increased granulation tissue without erythema or purulence at the right heel wound. Left heel wound exposed bone, no purulent drainage improved erythema. Left posterior heel wound 6 cm x 5 cm x 1.5 cm 50% granular 50% fibrotic. Healthy granular wound to the right plantar heel improving with epithelialized margin no surrounding erythema, warmth or drainage measures 2 cm x 1.8 cm x 0.2 cm. MUSCULOSKELETAL: Tenderness at left heel. Hammertoe deformities 2 through 5 bilaterally are reducible. Ankle joint dorsiflexion is to neutral. No pain with posterior calf squeeze bilaterally. Data : 10/24/20 05:24 10/24/20 05:24 Micro: Microbiology 10/19/20 16:00 Blood Culture - Final Blood NO GROWTH AFTER 5 DAYS 10/19/20 15:55 Blood Culture - Final Blood NO GROWTH AFTER 5 DAYS 10/20/20 02:55 Urine Culture - Final Urine,Voided Kiki albicans A&P Assessment and plan (1) Diabetes mellitus with diabetic polyneuropathy: Status: Acute Qualifiers: Diabetes mellitus type: type 2 Diabetes mellitus supervisor intermediates insulin use: with supervisor intermediates use Qualified Code(s): E11.42 - Type 2 diabetes mellitus with diabetic polyneuropathy; Z79.4 - watermaster (current) use of insulin (2) 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 Sepsis resolved. -Incision and debridement left heel with bone biopsy of left calcaneus performed 10/20/20 -Will need to offload bilateral heels at all times while at rest during this hospitalization as well as at discharge/transfer. PODUS boots will need to be utilized -Currently receiving empiric IV antibiotics, bone culture pending, growing staph, proteus and enterococcus -Quarter percent Dakin solution wet to dry dressing change 3 times daily left heel wound during this hospitalization. -Silver alginate to right heel wound once daily dressing change. 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 Okay for discharge/transfer from podiatry standpoint. Dr. 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
--- NOTE | 2020-10-24 23:02 | PC.NURSE ---
This nurse went into patient's room to give insulin and patient was agitated that this nurse was disturbing him. This nurse asked the patient what I could do and patient said to stop coming in the room. This nurse educated the patient about insulin and other antibiotics that are due. Patient said he did not want anymore medication and to let him rest. I educated the patient that he can't get better if we don't give the medication. This nurse will go back in later and see if patient will allow antibiotics.
[2020-10-25] VITALS (11 sets, daily range): BP systolic 101–149; BP diastolic 70–87; PULSE 67–77; RESP 16–21; TEMP 36–37.1; O2SAT 92–97
[2020-10-25] MEDS: heparin 5,000 unit/mL INJ 1 mL 5000 UNIT SUBCUT ×3 (00:48→17:33)
[2020-10-25] MEDS: morphine 4 mg/mL SDV 1 mL 1 MG IVP ×2 (00:58→23:40)
[2020-10-25 02:58] LABS: Basophils % 0.6 %; Eosinophils # 0.7 10^3/uL (0.0-0.8); Eosinophils % 9.2 %; Hematocrit 28.1 % (42.0-52.0); Hemoglobin 8.9 g/dL (11.7-16.6); Lymphocytes # 1.1 10^3/uL (0.8-4.8); Lymphocytes % 15.7 %; Mean Corpuscular HGB Conc 31.7 g/dL (30.0-36.0); Mean Corpuscular Hemoglobin 28.9 pg (28.0-34.0); Mean Corpuscular Volume 91.2 fL (80-94); Mean Platelet Volume 10.9 fL (7.4-10.4); Monocytes # 0.6 10^3/uL (0.2-0.9); Monocytes % 8.4 %; Neutrophils # 4.75 10^3/uL (1.8-7.7); Neutrophils % 65.4 %; Nucleated Red Blood Cells % 0 %; Platelet Count 259 10^3/cmm (130-400); Red Blood Count 3.08 10^6/uL (4.1-5.3); Red Cell Distribution Width 17.7 % (12.1-15.1); White Blood Count 7.3 10^3/uL (4.0-10.0)
[2020-10-25 03:19] LABS: Alanine Aminotransferase 11 U/L (0-41); Albumin Level 2.9 g/dL (3.5-5.2); Alkaline Phosphatase 120 IU/L (40-130); Anion Gap 11.9 (5-19); Aspartate Amino Transferase 16 U/L (0-40); Blood Urea Nitrogen 35 mg/dL (8-23); Calcium 9.4 mg/dL (8.5-10.5); Carbon Dioxide 28 mmol/L (22-29); Chloride 102 mmol/L (98-107); Globulin 3.3 g/dL (1.3-4.6); Glucose 87 mg/dL (65-115); Magnesium 1.8 mg/dL (1.7-2.3); Osmolality Calculated 293 mOsm/kg (285-295); Phosphorus 3.4 mg/dL (2.5-4.5); Potassium 3.9 mmol/L (3.5-5.1); Sodium 138 mmol/L (136-145); Total Bilirubin 0.4 mg/dL (0.15-1.2); Total Protein 6.2 g/dL (6.6-8.7)
[2020-10-25 06:39] LABS: Glucose Point of Care 99 mg/dL (70-110)
[2020-10-25 10:32] LABS: Glucose Point of Care 140 mg/dL (70-110)
[2020-10-25] MEDS: clopidogrel 75 mg Tablet PO (11:01)
[2020-10-25] MEDS: aspirin 81 mg EC Tablet PO (11:01)
[2020-10-25] MEDS: potassium chloride ER 20 mEq Tablet PO (11:02)
[2020-10-25] MEDS: FUROsemide 40 mg Tablet PO ×2 (11:02→17:32)
[2020-10-25] MEDS: levothyroxine 75 mcg Tablet 150 MCG PO (11:02)
[2020-10-25] MEDS: metoprolol tartrate 25 mg Tablet 12.5 MG PO ×2 (11:02→21:02)
[2020-10-25] MEDS: fluconazole 100 mg Tablet PO (11:03)
[2020-10-25] MEDS: pantoprazole DR 40 mg Tablet PO (11:03)
[2020-10-25] MEDS: HYDROcodone-acetaminophen 5-325 mg Tablet 1 TAB PO (15:32)
[2020-10-25 16:21] LABS: Glucose Point of Care 186 mg/dL (70-110)
--- NOTE | 2020-10-25 16:56 | PM.PN ---
Subjective Subjective: Interval history: This morning I was told by nursing staff that patient was refusing to take medications until he spoke to me, he want to be transferred to [facility] I spoke to patient, that I can do as he wishes, to transfer him to [facility], he tells me he wants to go there so he can have his angiograms performed there, and have a second opinion, he tells me that he just not feeling well this morning, his legs hurt him, but at the end he says that he wants to think, before I do anything, and he wants to talk to his family members I called patient's and daughter, to have a family meeting with patient In the presence of patient, and daughter I had a discussion of patient's care -I advised all parties that patient had sepsis secondary to left lower extremity cellulitis and osteomyelitis with bacteremia, requiring debridement, is currently on antibiotic therapy, clinically improving -He does have evidence of peripheral arterial disease, in order to improve wound healing, and to improve clinical outcome, we would recommend angiography with possible stenting which can be done on a nonemergent basis, but it would be in his best interest to do it here while he is in the hospital waiting custodial placement, to optimize his outcome -Patient did have a positive stress test, currently not having any chest pain, certainly patient does require a coronary angiogram in the near future, but it does not urgently require to be done, unless he were to have chest pain or changes in his clinical status. While he is here in the hospital we were considering doing a peripheral angiogram, which would take precedence over the coronary angiogram at this time, to improve his lower extremity wound healing. Unfortunately we cannot do a peripheral angiogram and a coronary angiogram at the same time due to risk of contrast-induced nephropathy -I discussed transfer to [facility], due to patient's preference, I advised patient and his family that I can certainly call [facility] for transfer, but I cannot guarantee transfer, I cannot guarantee that they will septum, I cannot guarantee that they will have a bed, I cannot guarantee that their specialist will agree with our plan of peripheral angiogram, or even a coronary angiogram, I cannot guarantee that his insurance company will cover the transfer and the hospital stay at [facility]. However if it is patient's and family's wish to be transferred to [facility] I will abide by their wishes -After discussion of the risks and benefits of transfer, all parties voiced understanding, all questions answered, they have declined transfer to [facility] -Patient and family have agreed to do his testing and evaluation here at [facility] -I did speak to Dr. Shaffer, he said that he could evaluate patient today, consider peripheral angiogram tomorrow -I did let the patient and family know, I went over peripheral angiogram with the patient, risk and benefits, he wishes signing, all questions answered, agreed to proceed -I did let patient and family know that if he were to have chest pain certainly we could do a coronary angiogram on emergent basis, but currently is not emergently required, but should be performed in a reasonable amount of time, at a location of patient's choosing Vitals/I&O/Wt Last Vital Signs Temp 98.1 F 10/25/20 15:41 Pulse 71 10/25/20 15:41 Resp 17 10/25/20 15:41 BP 149/83 10/25/20 15:41 Pulse Ox 95 10/25/20 15:41 10/25/20 10/25/20 10/25/20 06:59 14:59 22:59 Intake Total 200 / 1120 460 / 460 Output Total 700 / 1100 650 / 650 300 / 950 Balance -500 / 20 -190 / -190 -300 / -490 Physical Exam Const: COMMON NORMALS: no acute distress and patient oriented x3 HENMT: COMMON NORMALS: normocephalic HEAD & SCALP: normocephalic Neck/C-Spine: COMMON NORMALS: no JVD Resp: COMMON NORMALS: normal respiratory effort, No retractions, No use of accessory muscles and clear to auscultation bilaterally AUSCULTATION: clear to auscultation bilaterally Cardio: COMMON NORMALS: no JVD, regular rate, regular rhythm, S1 normal heart sound present and S2 normal heart sound present RATE: regular rate RHYTHM: regular rhythm HEART SOUNDS: S1 normal heart sound present and S2 normal heart sound present GI: COMMON NORMALS: Normal to inspection, nondistended, normoactive bowel sounds present, Soft to palpation, non-tender, No hepatosplenomegaly present, no masses and no bruits PALPATION: Yes Soft to palpation and Yes No hepatosplenomegaly present Extremity: COMMON NORMALS: capillary refill normal, no clubbing, cyanosis or edema and no pedal edema NARRATIVE EXTREMITY EXAM: Bilateral lower extremity in a Cam boot Neuro: COMMON NORMALS: patient oriented x3 Psych: COMMON NORMALS: mental status grossly normal Data : 10/25/20 02:45 10/25/20 02:45 Micro: Microbiology 10/19/20 16:00 Blood Culture - Final Blood NO GROWTH AFTER 5 DAYS 10/19/20 15:55 Blood Culture - Final Blood NO GROWTH AFTER 5 DAYS 10/20/20 02:55 Urine Culture - Final Urine,Voided Kiki albicans A&P Assessment and plan (1) Sepsis: Secondary to left lower extremity wound infection, cellulitis, status post debridement of wound and gangrene, with 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 Diflucan -Currently on Primaxin and daptomycin, will likely be discharged on IV vancomycin and p.o. Levaquin -Homer for pain, morphine as needed -Tissue culture positive for Proteus, MRSA, Enterococcus, Proteus -Total of 6 weeks of IV antibiotics starting on 10/20 -Awaiting custodial placement -NICHELLE on the right 0.9, 0.5 on the left, has agreed to angiogram as inpatient, discussed risk and benefits, voiced understanding, all questions answered, I have spoke to Dr. Shaffer, he will come and evaluate the patient today, hopefully we can perform it tomorrow afternoon -Continues to have episodes of pain, increased hydrocodone to 7.5 -Full code -Heparin for DVT prophylaxis -Awaiting prior Auth, antibiotic approval, nursing placement Status: Acute Qualifiers: Sepsis type: sepsis due to unspecified organism Sepsis acute organ dysfunction status: unspecified Qualified Code(s): A41.9 - Sepsis, unspecified organism (2) Fever: Afebrile for the last 72 hours Status: Acute Qualifiers: Fever type: unspecified Qualified Code(s): R50.9 - Fever, unspecified (3) Weakness: Secondary to acute infection, bacteremia, also noted history of cardiomyopathy, CHF. Treat as above. Mobilize with physical deconditioning, would benefit from rehabilitation. Discharge planning working with him and family with regards to placement. Status: Acute (4) Venous stasis ulcers of both lower extremities: Status: Acute (5) Cellulitis: Status: Acute (6) Hypothyroid: Status: Acute (7) Anemia: Status: Acute Qualifiers: Anemia type: due to chronic kidney disease Chronic kidney disease stage: unspecified stage Qualified Code(s): N18.9 - Chronic kidney disease, unspecified; D63.1 - Anemia in chronic kidney disease (8) CKD (chronic kidney disease): Acute kidney injury appears to be improving with changing antibiotics, improvement in sepsis. Status: Acute Qualifiers: Chronic kidney disease stage: stage 3 (moderate) Qualified Code(s): N18.3 - Chronic kidney disease, stage 3 (moderate) (9) Type 2 diabetes mellitus: Glucose somewhat variable, but does go as low as 100. Would not add long-acting insulin for now. Continue insulin sliding scale, monitor glucose. Consistent carbohydrate diet. Status: Acute Qualifiers: Diabetes mellitus long-term insulin use: without watermelon harvesting supervisor use Diabetes mellitus complication status: without complication Qualified Code(s): E11.9 - Type 2 diabetes mellitus without complications (10) Yeast UTI: Status: Acute (11) Elevated troponin: -Positive stress test -There is a large sized mostly fixed defect in the inferior wall with partial reversibility. This is consistent with prior infarct with singificant augustin- infarct ischemia in the RCA territory. Patient has reversible perfusion defect of the apical and apical inferior zepeda. This represents ischemia -Currently chest pain-free -Is on aspirin, Plavix, metoprolol 12.5 twice daily -Continue telemetry monitoring, continue to monitor for chest pain -Agrees to coronary angiogram, however current laid there is no urgent need, and peripheral angiogram takes precedence -Coronary angiogram can be done on an emergent basis if required, however he can follow-up as outpatient Status: Acute Additional A&P Information CHF without acute exacerbation continue Lasix 40 twice daily, hold spironolactone Chronic hyponatremia Attestations Medical Necessity Statement*: She requires hospitalization for sepsis secondary to left lower extremity wound cellulitis, requiring antibiotic therapy, IV, peripheral angiogram, custodial placement Coding Level of Care Code Acute Genetic Supervisor for [facility] Fw Diagnoses Sepsis A41.9 Sepsis type: sepsis due to unspecified organism Sepsis acute organ dysfunction status: unspecified Fever R50.9 Fever type: unspecified Weakness R53.1 Venous stasis ulcers of both lower extremities I83.019; I83.029; L97.919; L97.929 Cellulitis L03.90 Hypothyroid E03.9 Anemia N18.9; D63.1 Anemia type: due to chronic kidney disease Chronic kidney disease stage: unspecified stage CKD (chronic kidney disease) N18.3 Chronic kidney disease stage: stage 3 (moderate) Type 2 diabetes mellitus E11.9 Diabetes mellitus watermelon harvesting supervisor insulin use: without watermelon harvesting supervisor use Diabetes mellitus complication status: without complication Yeast UTI B37.49 Elevated troponin R77.8
--- NOTE | 2020-10-25 18:39 | PM.PN ---
Subjective Subjective: Interval history: Patient initially wanted to be discharged and get second opinion in [place]. However patient and family have decided to proceed with the peripheral angiogram with possible intervention here. Overall he is doing well. His creatinine has worsened Vitals/I&O/Wt Last Vital Signs Temp 98.1 F 10/25/20 15:41 Pulse 71 10/25/20 15:41 Resp 17 10/25/20 15:41 BP 149/83 10/25/20 15:41 Pulse Ox 95 10/25/20 15:41 10/25/20 10/25/20 10/25/20 06:59 14:59 22:59 Intake Total 200 / 1120 460 / 460 620 / 1080 Output Total 700 / 1100 650 / 650 1300 / 1950 Balance -500 / 20 -190 / -190 -680 / -870 Physical Exam Const: COMMON NORMALS: no acute distress and patient oriented x3 HENMT: COMMON NORMALS: normocephalic HEAD & SCALP: normocephalic Neck/C-Spine: COMMON NORMALS: no JVD Resp: COMMON NORMALS: normal respiratory effort, No retractions, No use of accessory muscles and clear to auscultation bilaterally AUSCULTATION: clear to auscultation bilaterally Cardio: COMMON NORMALS: no JVD, regular rate, regular rhythm, S1 normal heart sound present and S2 normal heart sound present RATE: regular rate RHYTHM: regular rhythm HEART SOUNDS: S1 normal heart sound present and S2 normal heart sound present GI: COMMON NORMALS: Normal to inspection, nondistended, normoactive bowel sounds present, Soft to palpation, non-tender, No hepatosplenomegaly present, no masses and no bruits PALPATION: Yes Soft to palpation and Yes No hepatosplenomegaly present Extremity: NARRATIVE EXTREMITY EXAM: Bilateral lower extremities wrapped Neuro: COMMON NORMALS: patient oriented x3 Psych: COMMON NORMALS: mental status grossly normal Data : 10/26/20 02:16 10/26/20 02:16 Micro: Microbiology 10/19/20 16:00 Blood Culture - Final Blood NO GROWTH AFTER 5 DAYS 10/19/20 15:55 Blood Culture - Final Blood NO GROWTH AFTER 5 DAYS A&P Assessment and plan (1) Elevated troponin: Troponin elevation possibly secondary to type 2 [place] vs NSTEMI. On asprin and plavix. Stress test shows inferior wall infarct with some augustin-infarct ischemia and ischemia of the apical zepeda. Patient is chest pain free at this time. Patient is not having chest pain. As his renal function is abnormal, we will proceed with peripheral angiogram with possible intervention first as that will improve his chances of lower extremity healing. Status: Acute (2) Ischemic cardiomyopathy: Continue losartan. Will benefit from ICD/lifevest Status: Acute (3) ASHD (arteriosclerotic heart disease): Patient will need coronary angiogram at some point as stress test was abnormal. However because of elevated creatinine, he will need to stage the coronary angiogram as priority will be to perform peripheral angiogram with possible intervention as patient has critical limb ischemia and will help with wound healing. Status: Acute (4) Venous stasis ulcers of both lower extremities: Patient had a venous Doppler examination before he was found to have no evidence of DVT. Status: Acute (5) Sepsis: Patient is diagnosed with a gram-negative septicemia. Antibiotic treatment as per the primary. May continue with aggressive management of the leg ulcers. His blood culture grew bacteroids fragilis, Proteus mirabilis and bacillus Status: Acute Qualifiers: Sepsis type: sepsis due to unspecified organism Sepsis acute organ dysfunction status: unspecified Qualified Code(s): A41.9 - Sepsis, unspecified organism (6) Type 2 diabetes mellitus: Aggressive management of the diabetes, as per the primary. Status: Acute Qualifiers: Diabetes mellitus usp insulin use: without ferry terminal agent use Diabetes mellitus complication status: without complication Qualified Code(s): E11.9 - Type 2 diabetes mellitus without complications (7) HTN (hypertension): Currently he is normotensive Status: Acute Qualifiers: Hypertension type: essential hypertension Qualified Code(s): I10 - Essential (primary) hypertension (8) Peripheral arterial disease: In view of the nonhealing ulcers, patient may benefit from peripheral angiogram and possible intervention. He was found to have an NICHELLE of 0.5 on the left side. He also has features of collateral filling of the dorsalis pedis artery on the right side. Plan for peripheral angiogram with possible intervention tomorrow or Friday based on his renal function and schedule Status: Acute (9) Bilateral leg edema: This could be multifactorial. Chronic systolic heart failure, chronic venous stasis, peripheral arterial disease, dependency, etc. are contributing factors. Patient may be carefully treated with diuretics. Continue managing the precipitating factors. 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 Thank you for the opportunity to evaluate this patient and make these recommendations. Attestations Medical Necessity Statement*: Care expected to cross 2 midnights Coding Level of Care Code Acute Vascular Technologist Sonographer for [facility] Fwd Diagnoses Elevated troponin R77.8 Ischemic cardiomyopathy I25.5 ASHD (arteriosclerotic heart disease) I25.10 Venous stasis ulcers of both lower extremities I83.019; I83.029; L97.919; L97.929 Sepsis A41.9 Sepsis type: sepsis due to unspecified organism Sepsis acute organ dysfunction status: unspecified Type 2 diabetes mellitus E11.9 Diabetes mellitus usp insulin use: without ferry terminal agent use Diabetes mellitus complication status: without complication HTN (hypertension) I10 Hypertension type: essential hypertension Peripheral arterial disease I73.9 Bilateral leg edema R60.0 Critical lower limb ischemia I70.229
[2020-10-25 20:50] LABS: Glucose Point of Care 151 mg/dL (70-110)
[2020-10-25] MEDS: atorvastatin 40 mg Tablet PO (21:02)
[2020-10-25] MEDS: HYDROcodone-acetaminophen 7.5-325 mg Tablet 1 TAB PO (21:09)
[2020-10-26] VITALS (7 sets, daily range): BP systolic 121–164; BP diastolic 75–88; PULSE 57–85; RESP 16–19; TEMP 36.3–36.6; O2SAT 90–97
[2020-10-26] MEDS: heparin 5,000 unit/mL INJ 1 mL 5000 UNIT SUBCUT ×3 (01:25→17:58)
[2020-10-26 02:22] LABS: Basophils % 0.6 %; Eosinophils # 0.6 10^3/uL (0.0-0.8); Eosinophils % 8.7 %; Hematocrit 28.9 % (42.0-52.0); Hemoglobin 9.2 g/dL (11.7-16.6); Lymphocytes # 1.5 10^3/uL (0.8-4.8); Lymphocytes % 22.7 %; Mean Corpuscular HGB Conc 31.8 g/dL (30.0-36.0); Mean Corpuscular Hemoglobin 29.1 pg (28.0-34.0); Mean Corpuscular Volume 91.5 fL (80-94); Mean Platelet Volume 10.7 fL (7.4-10.4); Monocytes # 0.8 10^3/uL (0.2-0.9); Monocytes % 11.3 %; Neutrophils # 3.81 10^3/uL (1.8-7.7); Neutrophils % 56.1 %; Nucleated Red Blood Cells % 0 %; Platelet Count 259 10^3/cmm (130-400); Red Blood Count 3.16 10^6/uL (4.1-5.3); Red Cell Distribution Width 17.7 % (12.1-15.1); White Blood Count 6.8 10^3/uL (4.0-10.0)
[2020-10-26] MEDS: HYDROcodone-acetaminophen 7.5-325 mg Tablet 1 TAB PO ×4 (02:34→22:37)
[2020-10-26 02:42] LABS: Alanine Aminotransferase 8 U/L (0-41); Albumin Level 2.8 g/dL (3.5-5.2); Alkaline Phosphatase 128 IU/L (40-130); Anion Gap 12.1 (5-19); Aspartate Amino Transferase 16 U/L (0-40); Blood Urea Nitrogen 31 mg/dL (8-23); Calcium 9.2 mg/dL (8.5-10.5); Carbon Dioxide 30 mmol/L (22-29); Chloride 103 mmol/L (98-107); Globulin 3.3 g/dL (1.3-4.6); Glucose 92 mg/dL (65-115); Magnesium 1.8 mg/dL (1.7-2.3); Osmolality Calculated 298 mOsm/kg (285-295); Phosphorus 3.3 mg/dL (2.5-4.5); Potassium 4.1 mmol/L (3.5-5.1); Sodium 141 mmol/L (136-145); Total Bilirubin 0.4 mg/dL (0.15-1.2); Total Protein 6.1 g/dL (6.6-8.7)
[2020-10-26 06:36] LABS: Glucose Point of Care 99 mg/dL (70-110)
[2020-10-26] MEDS: pantoprazole DR 40 mg Tablet PO (09:01)
[2020-10-26] MEDS: clopidogrel 75 mg Tablet PO (09:01)
[2020-10-26] MEDS: aspirin 81 mg EC Tablet PO (09:01)
[2020-10-26] MEDS: potassium chloride ER 20 mEq Tablet PO (09:01)
[2020-10-26] MEDS: levothyroxine 75 mcg Tablet 150 MCG PO (09:01)
[2020-10-26] MEDS: metoprolol tartrate 25 mg Tablet 12.5 MG PO ×2 (09:01→20:16)
[2020-10-26] MEDS: fluconazole 100 mg Tablet PO (09:02)
--- NOTE | 2020-10-26 09:21 | PC.SOCIAL ---
IMM Updated. Updated pt on Pg 2 IMM. No questions voiced. Provided pt a copy. Initialed, dated, & timed copy in chart.
[2020-10-26 10:41] LABS: Glucose Point of Care 187 mg/dL (70-110)
--- NOTE | 2020-10-26 12:27 | PM.PN ---
Subjective Subjective: Interval history: Patient was seen this morning, he is sitting up to the side of the bed, he tells me he is feeling a bit better, his pain is a bit better under control, no fevers overnight, no chest pain, no palpitations, no lightheadedness, dizziness, shortness of breath. I advised patient that the plan is to perform with a peripheral angiogram tomorrow afternoon, as the schedule today is busy and his creatinine is up to 1.6, he voices understanding Vitals/I&O/Wt Last Vital Signs Temp 97.8 F 10/26/20 10:56 Pulse 67 10/26/20 10:56 Resp 16 10/26/20 10:56 BP 132/88 10/26/20 10:56 Pulse Ox 97 10/26/20 10:56 10/25/20 10/26/20 10/26/20 22:59 06:59 14:59 Intake Total 620 / 1080 200 / 1280 820 / 820 Output Total 1350 / 2000 150 / 2150 300 / 300 Balance -730 / -920 50 / -870 520 / 520 Physical Exam Const: COMMON NORMALS: no acute distress and patient oriented x3 Neck/C-Spine: COMMON NORMALS: no JVD Resp: COMMON NORMALS: normal respiratory effort, No retractions, No use of accessory muscles and clear to auscultation bilaterally AUSCULTATION: clear to auscultation bilaterally Cardio: COMMON NORMALS: no JVD, regular rate, regular rhythm, S1 normal heart sound present and S2 normal heart sound present RATE: regular rate RHYTHM: regular rhythm HEART SOUNDS: S1 normal heart sound present and S2 normal heart sound present GI: COMMON NORMALS: Normal to inspection, nondistended, normoactive bowel sounds present, Soft to palpation, non-tender, No hepatosplenomegaly present, no masses and no bruits PALPATION: Yes Soft to palpation and Yes No hepatosplenomegaly present Extremity: COMMON NORMALS: no pedal edema NARRATIVE EXTREMITY EXAM: Bilateral lower extremity in a Cam boot Neuro: COMMON NORMALS: patient oriented x3 Psych: COMMON NORMALS: mental status grossly normal Data : 10/26/20 02:16 10/26/20 02:16 A&P Assessment and plan (1) Sepsis: Secondary to left lower extremity wound infection, cellulitis, status post debridement of wound and gangrene, with 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 Diflucan, needs 2 weeks, starting on 10/22/2020 -De-escalate antibiotic therapy to Augmentin -Switch to vancomycin from daptomycin, due to insurance coverage issues, pharmacy to dose, monitor Vanco trough will start off on the lower dose given creatinine 1.6 -Tissue culture positive for Proteus, MRSA, Enterococcus, Proteus -Total of 6 weeks of IV antibiotics starting on 10/20 -Awaiting fpc placement -NICHELLE on the right 0.9, 0.5 on the left, has agreed to angiogram as inpatient, discussed risk and benefits, voiced understanding, all questions answered, I have spoke to Dr. Shaffer, plan is to perform peripheral angiogram tomorrow in the afternoon, creatinine is up to 1.6, hold Lasix, will start gentle IV hydration a few hours before his procedure -Continues to have episodes of pain, increased hydrocodone to 7.5 milligrams p.o. every 24 hours -Full code -Heparin for DVT prophylaxis -Awaiting prior Auth, antibiotic approval, nursing placement Status: Acute Qualifiers: Sepsis type: sepsis due to unspecified organism Sepsis acute organ dysfunction status: unspecified Qualified Code(s): A41.9 - Sepsis, unspecified organism (2) Fever: Afebrile Status: Acute Qualifiers: Fever type: unspecified Qualified Code(s): R50.9 - Fever, unspecified (3) Weakness: Secondary to acute infection, bacteremia, also noted history of cardiomyopathy, CHF. Treat as above. Mobilize with physical deconditioning, would benefit from rehabilitation. Discharge planning working with him and family with regards to placement. Status: Acute (4) Venous stasis ulcers of both lower extremities: Status: Acute (5) Cellulitis: Status: Acute (6) Hypothyroid: Status: Acute (7) Anemia: Status: Acute Qualifiers: Anemia type: due to chronic kidney disease Chronic kidney disease stage: unspecified stage Qualified Code(s): N18.9 - Chronic kidney disease, unspecified; D63.1 - Anemia in chronic kidney disease (8) CKD (chronic kidney disease): Acute kidney injury appears to be improving with changing antibiotics, improvement in sepsis. Status: Acute Qualifiers: Chronic kidney disease stage: stage 3 (moderate) Qualified Code(s): N18.3 - Chronic kidney disease, stage 3 (moderate) (9) Type 2 diabetes mellitus: Glucose somewhat variable, but does go as low as 100. Would not add long-acting insulin for now. Continue insulin sliding scale, monitor glucose. Consistent carbohydrate diet. Status: Acute Qualifiers: Diabetes mellitus care home insulin use: without care home use Diabetes mellitus complication status: without complication Qualified Code(s): E11.9 - Type 2 diabetes mellitus without complications (10) Yeast UTI: Status: Acute (11) Elevated troponin: -Positive stress test -There is a large sized mostly fixed defect in the inferior wall with partial reversibility. This is consistent with prior infarct with singificant augustin- infarct ischemia in the RCA territory. Patient has reversible perfusion defect of the apical and apical inferior zepeda. This represents ischemia -Currently chest pain-free -Is on aspirin, Plavix, metoprolol 12.5 twice daily -Continue telemetry monitoring, continue to monitor for chest pain -Agrees to coronary angiogram, however current laid there is no urgent need, and peripheral angiogram takes precedence -Coronary angiogram can be done on an emergent basis if required, however he can follow-up as outpatient Status: Acute (12) Peripheral arterial disease: -Awaiting peripheral angiogram, tomorrow afternoon, hold Lasix, gentle IV hydration a few hours before the procedure Status: Acute Additional A&P Information CHF without acute exacerbation hold Lasix, hold spironolactone Chronic hyponatremia Plan for today switch to vancomycin, continue PT OT, monitor for fevers, monitor clinical status, plan for peripheral angiogram tomorrow, still waiting on prior Auth for fpc placement Attestations Medical Necessity Statement*: Patient requires hospitalization, for peripheral arterial disease, left lower extremity cellulitis with bacteremia, Coding Level of Care Code Acute 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 [facility] Fwd Diagnoses Sepsis A41.9 Sepsis type: sepsis due to unspecified organism Sepsis acute organ dysfunction status: unspecified Fever R50.9 Fever type: unspecified Weakness R53.1 Venous stasis ulcers of both lower extremities I83.019; I83.029; L97.919; L97.929 Cellulitis L03.90 Hypothyroid E03.9 Anemia N18.9; D63.1 Anemia type: due to chronic kidney disease Chronic kidney disease stage: unspecified stage CKD (chronic kidney disease) N18.3 Chronic kidney disease stage: stage 3 (moderate) Type 2 diabetes mellitus E11.9 Diabetes mellitus care home insulin use: without care home use Diabetes mellitus complication status: without complication Yeast UTI B37.49 Elevated troponin R77.8 Peripheral arterial disease I73.9
[2020-10-26] MEDS: vancomycin 1,000 MG in sodium chloride 0.9% 250 ML 250 MG IV (13:19)
--- NOTE | 2020-10-26 16:23 | PM.PN ---
Subjective Subjective: Interval history: Patient is doing well. No complaints of chest pain or shortness of breath. He has lower extremity pain on both sides. Plan for peripheral angiogram with possible intervention tomorrow. Vitals/I&O/Wt Last Vital Signs Temp 97.4 F L 10/26/20 15:03 Pulse 57 L 10/26/20 15:03 Resp 17 10/26/20 15:03 BP 122/77 10/26/20 15:03 Pulse Ox 93 10/26/20 15:03 10/26/20 10/26/20 10/26/20 06:59 14:59 22:59 Intake Total 200 / 1280 1070 / 1070 Output Total 150 / 2150 300 / 300 Balance 50 / -870 770 / 770 Physical Exam Const: COMMON NORMALS: no acute distress and patient oriented x3 HENMT: COMMON NORMALS: normocephalic HEAD & SCALP: normocephalic Neck/C-Spine: COMMON NORMALS: no JVD Resp: COMMON NORMALS: normal respiratory effort, No retractions, No use of accessory muscles and clear to auscultation bilaterally AUSCULTATION: clear to auscultation bilaterally Cardio: COMMON NORMALS: no JVD, regular rate, regular rhythm, S1 normal heart sound present and S2 normal heart sound present RATE: regular rate RHYTHM: regular rhythm HEART SOUNDS: S1 normal heart sound present and S2 normal heart sound present GI: COMMON NORMALS: Normal to inspection, nondistended, normoactive bowel sounds present, Soft to palpation, non-tender, No hepatosplenomegaly present, no masses and no bruits PALPATION: Yes Soft to palpation and Yes No hepatosplenomegaly present Extremity: NARRATIVE EXTREMITY EXAM: Bilateral lower extremities wrapped Neuro: COMMON NORMALS: patient oriented x3 Psych: COMMON NORMALS: mental status grossly normal Data : 10/27/20 02:24 10/27/20 02:24 A&P Assessment and plan (1) Elevated troponin: Troponin elevation possibly secondary to type 2 NE vs NSTEMI. On asprin and plavix. Stress test shows inferior wall infarct with some augustin-infarct ischemia and ischemia of the apical zepeda. Patient is chest pain free at this time. Patient is not having chest pain. As his renal function is abnormal, we will proceed with peripheral angiogram with possible intervention first as that will improve his chances of lower extremity healing. Status: Acute (2) Ischemic cardiomyopathy: Continue losartan. Will benefit from ICD/lifevest Status: Acute (3) ASHD (arteriosclerotic heart disease): Patient will need coronary angiogram at some point as stress test was abnormal. However because of elevated creatinine, he will need to stage the coronary angiogram as priority will be to perform peripheral angiogram with possible intervention as patient has critical limb ischemia and will help with wound healing. Status: Acute (4) Venous stasis ulcers of both lower extremities: Patient had a venous Doppler examination before he was found to have no evidence of DVT. Status: Acute (5) Sepsis: Patient is diagnosed with a gram-negative septicemia. Antibiotic treatment as per the primary. May continue with aggressive management of the leg ulcers. His blood culture grew bacteroids fragilis, Proteus mirabilis and bacillus Status: Acute Qualifiers: Sepsis type: sepsis due to unspecified organism Sepsis acute organ dysfunction status: unspecified Qualified Code(s): A41.9 - Sepsis, unspecified organism (6) Type 2 diabetes mellitus: Aggressive management of the diabetes, as per the primary. 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 He was found to have an NICHELLE of 0.5 on the left side. He also has features of collateral filling of the dorsalis pedis artery on the right side. Plan for peripheral angiogram with possible intervention tomorrow. Hold lasix for today as creatinine is on upward trend. Gentle IV hydration Status: Acute (9) Bilateral leg edema: This could be multifactorial. Chronic systolic heart failure, chronic venous stasis, peripheral arterial disease, dependency, etc. are contributing factors. Patient may be carefully treated with diuretics. Continue managing the precipitating factors. Status: Acute (10) Critical lower limb ischemia: Patient planned for peripheral angiogram with possible intervention tomorrow if renal function stabilizes. He has non healing ulcers/osteomyelitis. Hold lasix for now. Gentle IV fluids. 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 Thank you for the opportunity to evaluate this patient and make these recommendations. Attestations Medical Necessity Statement*: Care expected to cross 2 midnights. 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 [facility] Fwd Diagnoses Elevated troponin R77.8 Ischemic cardiomyopathy I25.5 ASHD (arteriosclerotic heart disease) I25.10 Venous stasis ulcers of both lower extremities I83.019; I83.029; L97.919; L97.929 Sepsis A41.9 Sepsis type: sepsis due to unspecified organism Sepsis acute organ dysfunction status: unspecified Type 2 diabetes mellitus E11.9 Diabetes mellitus m[facility]p insulin use: without equipment operator intermodal yard use Diabetes mellitus complication status: without complication HTN (hypertension) I10 Hypertension type: essential hypertension Peripheral arterial disease I73.9 Bilateral leg edema R60.0 Critical lower limb ischemia I70.229
[2020-10-26 16:31] LABS: Glucose Point of Care 78 mg/dL (70-110)
[2020-10-26] MEDS: atorvastatin 40 mg Tablet PO (20:16)
[2020-10-26 20:53] LABS: Glucose Point of Care 123 mg/dL (70-110)
[2020-10-27] VITALS (31 sets, daily range): BP systolic 106–160; BP diastolic 65–107; PULSE 46–75; RESP 5–34; TEMP 36.4–36.6; O2SAT 87–100
[2020-10-27] MEDS: heparin 5,000 unit/mL INJ 1 mL 5000 UNIT SUBCUT (02:20)
[2020-10-27 02:39] LABS: Basophils # 0.1 10^3/uL (0.0-0.1); Basophils % 0.9 %; Eosinophils # 0.5 10^3/uL (0.0-0.8); Eosinophils % 7.5 %; Hematocrit 29.6 % (42.0-52.0); Hemoglobin 9.2 g/dL (11.7-16.6); Lymphocytes # 1.6 10^3/uL (0.8-4.8); Lymphocytes % 23.9 %; Mean Corpuscular HGB Conc 31.1 g/dL (30.0-36.0); Mean Corpuscular Hemoglobin 28.8 pg (28.0-34.0); Mean Corpuscular Volume 92.5 fL (80-94); Mean Platelet Volume 10.5 fL (7.4-10.4); Monocytes # 0.6 10^3/uL (0.2-0.9); Monocytes % 8.7 %; Neutrophils # 3.96 10^3/uL (1.8-7.7); Neutrophils % 58.6 %; Nucleated Red Blood Cells % 0 %; Platelet Count 245 10^3/cmm (130-400); Red Cell Distribution Width 17.9 % (12.1-15.1); White Blood Count 6.8 10^3/uL (4.0-10.0)
[2020-10-27 02:58] LABS: Alanine Aminotransferase 7 U/L (0-41); Albumin Level 2.9 g/dL (3.5-5.2); Alkaline Phosphatase 123 IU/L (40-130); Anion Gap 10.3 (5-19); Aspartate Amino Transferase 17 U/L (0-40); Blood Urea Nitrogen 29 mg/dL (8-23); Calcium 9.3 mg/dL (8.5-10.5); Carbon Dioxide 31 mmol/L (22-29); Chloride 102 mmol/L (98-107); Globulin 3.1 g/dL (1.3-4.6); Glucose 105 mg/dL (65-115); Magnesium 1.9 mg/dL (1.7-2.3); Osmolality Calculated 294 mOsm/kg (285-295); Phosphorus 3.5 mg/dL (2.5-4.5); Potassium 4.3 mmol/L (3.5-5.1); Sodium 139 mmol/L (136-145); Total Bilirubin 0.5 mg/dL (0.15-1.2)
[2020-10-27 06:35] LABS: Glucose Point of Care 102 mg/dL (70-110)
[2020-10-27 11:05] LABS: Glucose Point of Care 110 mg/dL (70-110)
[2020-10-27] MEDS: aspirin 81 mg EC Tablet PO (12:06)
[2020-10-27] MEDS: levothyroxine 75 mcg Tablet 150 MCG PO (12:06)
[2020-10-27] MEDS: amoxicillin-clav 875-125 mg Tablet 1 TAB PO (12:06)
[2020-10-27] MEDS: pantoprazole DR 40 mg Tablet PO (12:07)
[2020-10-27] MEDS: diphenhydrAMINE 50 mg Capsule PO (12:07)
[2020-10-27] MEDS: fluconazole 100 mg Tablet PO (12:07)
[2020-10-27] MEDS: clopidogrel 75 mg Tablet PO (12:07)
[2020-10-27] MEDS: potassium chloride ER 20 mEq Tablet PO (12:08)
[2020-10-27] MEDS: metoprolol tartrate 25 mg Tablet 12.5 MG PO (12:08)
[2020-10-27] MEDS: sodium chloride 0.9% 1,000 ML 75 ML IV ×2 (12:18→18:00)
--- NOTE | 2020-10-27 13:15 | P.PN_ITS ---
Subjective Subjective: Interval history: patient was seen this morning, he is doing well, has no complaints, is awaiting his peripheral angiogram, he has been accepted at the custodial, hopefully can discharge tommorow Vitals/I&O/Wt Last Vital Signs Temp 97.8 F 10/27/20 10:47 Pulse 75 10/27/20 10:47 Resp 18 10/27/20 10:47 BP 147/86 10/27/20 10:47 Pulse Ox 96 10/27/20 10:47 10/26/20 10/27/20 10/27/20 22:59 06:59 14:59 Intake Total 240 / 1310 Output Total 250 / 550 250 / 250 Balance 240 / 1010 -250 / 760 -250 / -250 Physical Exam Const: COMMON NORMALS: no acute distress and patient oriented x3 HENMT: COMMON NORMALS: normocephalic HEAD & SCALP: normocephalic Neck/C-Spine: COMMON NORMALS: no JVD Resp: COMMON NORMALS: normal respiratory effort, No retractions, No use of accessory muscles and clear to auscultation bilaterally AUSCULTATION: clear to auscultation bilaterally Cardio: COMMON NORMALS: no JVD, regular rate, regular rhythm, S1 normal heart sound present and S2 normal heart sound present RATE: regular rate RHYTHM: regular rhythm HEART SOUNDS: S1 normal heart sound present and S2 normal heart sound present GI: COMMON NORMALS: Normal to inspection, nondistended, normoactive bowel sounds present, Soft to palpation, non-tender, No hepatosplenomegaly present, no masses and no bruits PALPATION: Yes Soft to palpation and Yes No hepatosplen omegaly present Extremity: NARRATIVE EXTREMITY EXAM: Bilateral lower extremity in a Cam boot Neuro: COMMON NORMALS: patient oriented x3 Psych: COMMON NORMALS: mental status grossly normal Data : 10/27/20 02:24 10/27/20 02:24 A&P Assessment and plan (1) Sepsis: Secondary to left lower extremity wound infection, cellulitis, status post debridement of wound and gangrene, with 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 Diflucan, needs 2 weeks, starting on 10/22/2020 -on Augmentin -Switch to vancomycin from daptomycin, due to insurance coverage issues, pharmacy to dose, monitor Vanco trough will start off on the lower dose given creatinine 1.5 -Tissue culture positive for Proteus, MRSA, Enterococcus, Proteus -Total of 6 weeks of IV antibiotics starting on 10/20 -can be discharged tommorow -NICHELLE on the right 0.9, 0.5 on the left, has agreed to angiogram as inpatient, discussed risk and benefits, voiced understanding, all questions answered, I have spoke to Dr. Shaffer, plan is to perform peripheral angiogram today, hold lasix, cr 1.5, recieving fluid therapy - hydrocodone to 7.5 milligrams p.o. every 24 hours -Full code -Heparin for DVT prophylaxis Status: Acute Qualifiers: Sepsis type: sepsis due to unspecified organism Sepsis acute organ dysfunction status: unspecified Qualified Code(s): A41.9 - Sepsis, unspecified organism (2) Fever: Afebrile Status: Acute Qualifiers: Fever type: unspecified Qualified Code(s): R50.9 - Fever, unspecified (3) Weakness: Secondary to acute infection, bacteremia, also noted history of cardiomyopathy, CHF. Treat as above. Mobilize with physical deconditioning, would benefit from rehabilitation. Discharge planning working with him and family with regards to placement. Status: Acute (4) Venous stasis ulcers of both lower extremities: Status: Acute (5) Cellulitis: Status: Acute (6) Hypothyroid: Status: Acute (7) Anemia: Status: Acute Qualifiers: Anemia type: due to chronic kidney disease Chronic kidney disease stage: unspecified stage Qualified Code(s): N18.9 - Chronic kidney disease, unspecified; D63.1 - Anemia in chronic kidney disease (8) CKD (chronic kidney disease): Acute kidney injury appears to be improving with changing antibiotics, im provement in sepsis. Status: Acute Qualifiers: Chronic kidney disease stage: stage 3 (moderate) Qualified Code(s): N18.3 - Chronic kidney disease, stage 3 (moderate) (9) Type 2 diabetes mellitus: Glucose somewhat variable, but does go as low as 100. Would not add long- acting insulin for now. Continue insulin sliding scale, monitor glucose. Consistent carbohydrate diet. 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 This is consistent with prior infarct with singificant augustin- infarct ischemia in the RCA territory. Patient has reversible perfusion defect of the apical and apical inferior zepeda. This represents ischemia -Currently chest pain-free -Is on aspirin, Plavix, metoprolol 12.5 twice daily -Continue telemetry monitoring, continue to monitor for chest pain -Agrees to coronary angiogram, however current laid there is no urgent need, and peripheral angiogram takes precedence -Coronary angiogram can be done on an emergent basis if required, however he can follow-up as outpatient Status: Acute (12) Peripheral arterial disease: -Awaiting peripheral angiogram, today, hold Lasix, gentle IV hydration a few hours before the procedure Status: Acute Additional A&P Information CHF without acute exacerbation hold Lasix, hold spironolactone Chronic hyponatremia Plan for today switch to vancomycin, continue PT OT, monitor for fevers, monitor clinical status, plan for peripheral angiogram tomorrow, still waiting on prior Auth for custodial placement Attestations Medical Necessity Statement*: patient requires hopsitalization for PAD requiring angiogram, LLE celulitis and bacteremia and sepsis, hopefully can dc tommorow Coding Level of Care Code Acute 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 [facility] Fwd Diagnoses Sepsis A41.9 Sepsis type: sepsis due to unspecified organism Sepsis acute organ dysfunction status: unspecified Fever R50.9 Fever type: unspecified Weakness R53.1 Venous stasis ulcers of both lower extremities I83.019; I83.029; L97.919; L97.929 Cellulitis L03.90 Hypothyroid E03.9 Anemia N18.9; D63.1 Anemia type: due to chronic kidney disease Chronic kidney disease stage: unspecified stage CKD (chronic kidney disease) N18.3 Chronic kidney disease stage: stage 3 (moderate) Type 2 diabetes mellitus E11.9 Diabetes mellitus construction crew member insulin use: without construction crew member use Diabetes mellitus complication status: without complication Yeast UTI B37.49 Elevated troponin R77.8 Peripheral arterial disease I73.9
[2020-10-27] MEDS: HYDROcodone-acetaminophen 7.5-325 mg Tablet 1 TAB PO (14:42)
[2020-10-27] MEDS: vancomycin 1,000 MG in sodium chloride 0.9% 250 ML 250 MG IV (14:42)
--- NOTE | 2020-10-27 15:31 | XACV_ITS ---
Ht: 175 cm Wt: 78 kg BSA: 1.96 m2 Any Known Allergies: Other Gender: Male : 1940 Exam Type: Invasive Peripheral Vascular Procedure(s): Procedure Description: Peripheral Cath Diagnostic Procedure Procedure Description: Abdominal aortic angiography Procedure Description: Lower extremities' angiography Procedure Description: Peripheral vascular Intervention Procedure Description: PV Balloon Exam Priority: Routine Abdominal Diagnostic Findings Distal abdominal aorta: No significant stenosis. Lower Extremity Diagnostic Findings Left lower extremity Common iliac artery: No significant stenosis External iliac artery: No significant stenosis Internal iliac artery: No significant stenosis Common femoral artery: No significant stenosis SFA: No significant stenosis Popliteal artery: Distal popliteal artery has severe 95% stenosis Anterior tibial artery: Has severe 90% proximal stenosis Posterior tibial artery: Patent Peroneal artery: Patent. Right lower extremity (Limited quality imaging, given patient's significant CKD, limited contrast used) Common iliac artery: No significant stenosis External iliac artery: No significant stenosis Internal iliac artery: No significant stenosis Common femoral artery: No significant stenosis Profunda artery: No significant stenosis SFA: No significant stenosis Popliteal artery: No significant stenosis Tibioperoneal trunk: Has 60-70% stenosis Anterior tibial artery: Not well visualized Posterior tibial artery: Has severe 80-90% stenosis Peroneal artery: Patent proximally , not well visualized distally. Indication: Critical limb ischemia. Osteomyelitis of left foot. Lower Extremity Interventional Findings Procedure detail: Right common femoral artery access was obtained. Abdominal angiogram was performed using UF catheter. We then advanced Glidewire into the left distal SFA going up and over and exchanged a 6 [place] short sheath to long sheath. Left lower extremity angiogram showed severe distal popliteal artery stenosis and severe proximal anterior tibial artery stenosis. Using seeker support catheter, guidewire was advanced past the popliteal artery stenosis. This was dilated with initially 4.0 x 60 mm balloon. We then dilated the stenosis with a 4.0 x 20 mm balloon. Wire was introduced into anterior tibial artery. 4 balloon could not be advanced. We performed dilation of the anterior tibial artery stenosis with a 2.25 x 8 mm balloon this was followed by dilation with a 4.0 x 20 mm balloon. At this time final angiogram with a DSA was performed that showed excellent flow and no residual stenosis with a three-vessel runoff to the foot. Angiogram was performed for the right lower extremity through the short sheath. However this was a limited quality angiogram and given patient's significant CKD, we did not take multiple pictures. Sheath was sutured in place for removal later. 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 Conclusions Critical limb ischemia/osteomyelitis of left foot. There was critical stenosis of distal popliteal artery/proximal anterior tibial artery. Successful revascularization with multiple balloon angioplasties of the left distal popliteal artery/ proximal anterior tibial artery. Patient has significant below the knee disease on the right side however angiogram was limited in quality and could not take multiple pictures because of CKD and high contrast use. Will follow symptomatically and may need repeat angiogram with intervention if medical therapy fails. Recommendations Transfer to [facility]. Aspirin and Plavix for 3 months. Will need outpatient cardiology follow up to assess the need for right lower extremity angiogram and possible intervention based on response to medical therapy. Access Site Site: Right Femoral artery Sheath Size: 6 Fr Hemost... Method: Suture Hemost... Success: Successful Procedure Details Findings Procedure Consent Obtained. Pre-Procedure Time Out. Identified patient by full name and date of as verbalized by the patient/guarantor. Does the consent match the physician's order: Yes. Accurate & Complete Informed Consent: Yes. Inpatient/Outpatient History & Physical on Chart: Yes. If H&P is completed, is and addenduem needed: No; If yes, is the addendum complete: N/A. Visualize and Verify Site with Patient/Guarantor: N/A. Relevant Radiology Images available: N/A. Pre-op teaching completed and patient verbalized understanding. The risks, benefits, and alternatives of sedation and/or procedure were discussed by physician. The patient agrees to continue. Procedure started. PERRLA. Strong, equal hand grad intern bilaterally. Lungs clear x 5 lobes. Pt arrived with PICC line to right upper arm. IV Fluids: 0.9% NaCl at KVO. 300 mL infused prior to laboratory veterinarian. Pre Procedural Pulses: bilateral dorsalis pedis was Doppled. Pre Procedural Pulses: bilateral posterior tibial was Doppled. Oxygen started at 2liters/min via nasal canula. bilateral groins was prepped with chloroprep then draped in the usual sterile fashion. Baseline sample Acquired. HR: 23 BPM. Physician arrived. Equipment: Peripheral. Cardiac Cath Pack. ACIST Manifold Kit Model BT 2000. Heparinized Saline (2 units/mL), 1000 mL bag. Inventory is JJ 6F 11cm Gabriela Plus Sheath. Physician scrubbed in. Time out performed with cath team. Lidocaine 1% infiltrated to the right groin. Arterial access obtained with micropuncture set. Hand injection through micropuncture dilator. Glidewire inserted through microdilator. A [facility] 5F UF catheter 65cm was advanced over the wire and used for Abdominal aortogram with runoff. Glidewire out. Abdominal aortogram performed in AP @ 10 mL/sec for a total of 30 mL. Glidewire inserted. Catheter removed over glidewire. Short 6 fr sheath exchanged for long 45 cm 6 fr Flexor sheath. Glidewire parked in the left SFA. Glidewire out. Left leg runoff 10 ml for total of 30 ml. Glidewire inserted. SEEKER support catheter inserted over glidewire. SEEKER seated in Tibial peroneal trunk. Glidewire out. Hand injection performed. Glidewire inserted. SEEKER catheter removed over glidewire. Inflation number : 1 A ARMTRENT 35 OTW [id number] was prepped and advanced across the Tibial Peroneal Trunk, Left , then inflated to 8 KEISHA for 2:03 seconds. Balloon out over wire. Results checked. Left leg runoff 10 ml for total of 20 ml. Wire pulled back into SFA. Left leg runoff 10 ml for total of 20 ml. SEEKER support catheter inserted over glidewire. Inventory is TR Runthrough NS Guidewire .014 300cm. Glidewire out. 300 cm Runthrough wire inserted through Seeker. Runthrough wire seated peroneal. SEEKER catheter removed over runthrough wire. Inflation number : 2 A MDT NC EUPHORA RX [id number] BALLOON was prepped and advanced across the Tibial Peroneal Trunk, Left , then inflated to 14 KEISHA for 1:01 seconds. Inflation number: 3 The MDT NC EUPHORA RX [id number] BALLOON was reinflated across the Tibial Peroneal Trunk, Left, to 14 KEISHA for 1:00 seconds. Balloon and wire pulled to redirect the wire to anterior tibial. Wire seated in anterior tibial. Inflation number: 1 The MDT NC EUPHORA RX 4.95A96AQ BALLOON was reinflated across the Anterior Tibial, Left, to 6 KEISHA for 0:23 seconds. Balloon out over wire. Inflation number : 2 A AB TREK 2.25X20 RX BALLOON was prepped and advanced across the Anterior Tibial, Left , then inflated to 12 KEISHA for 0:32 seconds. Inflation number: 3 The AB TREK 2.25X20 RX BALLOON was reinflated across the Anterior Tibial, Left, to 18 KEISHA for 0:37 seconds. Balloon out over wire. Inflation number: 4 The MDT NC EUPHORA RX 4.57Y38UW BALLOON was reinflated across the Anterior Tibial, Left, to 12 KEISHA for 0:23 seconds. Inflation number: 5 The MDT NC EUPHORA RX 4.94Y19WA BALLOON was reinflated across the Anterior Tibial, Left, to 12 KEISHA for 0:32 seconds. Inflation number: 6 The MDT NC EUPHORA RX 4.75N85HH BALLOON was reinflated across the Anterior Tibial, Left, to 12 KEISHA for 0:32 seconds. Balloon out over wire. Wire pulled back into SFA. Left leg runoff 10 ml for total of 20 ml to check results. Long 45 cm 6 fr Flexor sheath exchanged for 6 fr short sheath. Right leg runoff through sheath 10 ml for total of 30 ml. Physician scrubbed out. A Suture was successful obtaining hemostatsis at the Right Femoral artery insertion site. Sheath(s) sutured into position with 2-0 silk and sterile 4x4's and Op-site applied over the site. No oozing or signs and symptoms of hematoma noted. Arterial sheath flushed and connected to tranducer and pressure bag with heparinized saline. Post Procedure: Pulses reassessed and unchanged. PERRLA. Strong, equal hand grad intern bilaterally. No VTE prophylaxis required. Medication's Wasted: Heparin = 4000 units. Total IV fluids: 100 mL. Contrast type used: Visipaque 320 mgI/mL, 500 mL bottle. Post-op diagnosis: severe TPT/AT stenosis. Complications: none. Estimated blood loss: 5mL-10mL. Inventory is CK 6 FR FLEXOR SHEATH 45CM. Procedure completed. Patient transferred by bed to 1st floor. Vital chart was stopped. Procedure Medications Start: 4:12 PM Stop: 4:12 PM Medication: Versed Amount: 1 mg Route: I.V. Start: 4:12 PM Stop: 4:12 PM Medication: Fentanyl Amount: 50 mcg Route: I.V. Start: 4:23 PM Stop: 4:23 PM Medication: Versed Amount: 1 mg Route: I.V. Start: 4:23 PM Stop: 4:23 PM Medication: Fentanyl Amount: 50 mcg Route: I.V. Start: 4:48 PM Stop: 4:48 PM Medication: Heparin Amount: 5000 units Route: I.V. Start: 5:05 PM Stop: 5:05 PM Medication: Versed Amount: 1 mg Route: I.V. Start: 5:05 PM Stop: 5:05 PM Medication: Fentanyl Amount: 50 mcg Route: I.V. Start: 5:07 PM Stop: 5:07 PM Medication: Versed Amount: 1 mg Route: I.V. Start: 5:07 PM Stop: 5:07 PM Medication: Fentanyl Amount: 50 mcg Route: I.V. History/Risk Factors Hypertension: Yes Dyslipidemia: No Peripheral Arterial Disease (PAD): Yes Myocardial Infarction (LA): Yes Obesity: No Renal Disease: No Tobacco Use: Never Prior Interventions PCI: No CABG: No Valve Surgery: No Report Signatures Finalized by Lenin Shaffer MD on 11/11/2020 02:03 PM
--- NOTE | 2020-10-27 16:03 | W.PM.OPSUD ---
Surgery/Procedure H&P Update DATE OF PROCEDURE: October 27, 2020 DATE H&P PERFORMED: 10/22/20 H&P UPDATE INFORMATION: I have reviewed H&P completed within last 30 days, I have examined patient prior to procedure and No changes to prior documentation PREOP DIAGNOSIS: Critical limb ischemia/ osteomyelitis PRIMARY INDICATION FOR PROCEDURE: Critical limb ischemia/osteomyelitis PLANNED PROCEDURE: Operation Date: 10/27/2020 Peripheral angiogram with intervention PATIENT REASSESSED PRIOR TO SEDATION, WITH NO CHANGE NOTED: Yes PHYSICAL EXAM: alert, oriented x 3, clear to auscultation bilaterally and regular rate & rhythm AIRWAY EVAL/ANESTHESIA PLAN: normal airway, see other exam findings, ASA III, Risks, benefits & alternatives of sedation and/or procedure discussed (Risks and benefits of the procedure described including bleeding, infection, abnormal heart rhythm, renal function worsening, heart attack, stroke or ) and Patient agrees to continue as planned
--- NOTE | 2020-10-27 18:00 | PC.NURSE ---
From Shift Mechanic Received pt from research lab assistant via bed. post sedation, pt is asleep but arrousable, able to tell me his full name and date of . HR in 45-60s. 3 L NC applied. 6 Fr Sheath on right femoral groin is attached to pressure bag. no hematoma, bleeding, or swelling. Pt has dressings on bilateral legs and feet. Skin is warm. pedal pulses are diminished, Spo2 on bilateral feet range from 93-95%.
--- NOTE | 2020-10-27 19:12 | PM.PN ---
Subjective Subjective: Interval history: Patient seen bedside states he is n.p.o. for a vascular procedure. Denies any pain at his feet. He is wearing PODUS boots as instructed and his feet are elevated. Vitals/I&O/Wt Last Vital Signs Temp 97.8 F 10/27/20 10:47 Pulse 75 10/27/20 10:47 Resp 18 10/27/20 10:47 BP 147/86 10/27/20 10:47 Pulse Ox 96 10/27/20 10:47 10/27/20 10/27/20 10/27/20 06:59 14:59 22:59 Intake Total 250 / 250 Output Total 250 / 550 250 / 250 Balance -250 / 760 -250 / -250 250 / 0 Physical Exam Narrative: EXAM NARRATIVE: Patient is alert and oriented ?3 and in no acute distress. The following is a focused bilateral lower extremity exam. VASCULAR: Dorsalis pedis palpable posterior tibial arteries palpable. Capillary refill time less than 5 seconds to the distal hallux bilaterally. Calf is supple and nontender proximally and distally. Pitting edema to lower extremities left greater than right. Diminished pedal hair growth bilaterally. NEUROLOGICAL: Protective sensation intact 0/10 sites, tested with [place] monofilament to bilateral feet. DERMATOLOGICAL: Venous stasis ulcerations resolving bilateral legs limited to breakdown of skin. Cellulitis to the distal one third of the left leg source is from the left heel improving. Increased granulation tissue without erythema or purulence at the right heel wound. Left heel wound exposed bone, no purulent drainage improved erythema. Left posterior heel wound 6 cm x 5 cm x 1.5 cm 50% granular 50% fibrotic. Healthy granular wound to the right plantar heel improving with epithelialized margin no surrounding erythema, warmth or drainage measures 2 cm x 1.8 cm x 0.2 cm. MUSCULOSKELETAL: Tenderness at left heel. Hammertoe deformities 2 through 5 bilaterally are reducible. Ankle joint dorsiflexion is to neutral. No pain with posterior calf squeeze bilaterally. 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 Sepsis resolved. -Incision and debridement left heel with bone biopsy of left calcaneus performed 10/20/20 -Will need to offload bilateral heels at all times while at rest during this hospitalization as well as at discharge/transfer. PODUS boots will need to be utilized -Currently receiving empiric IV antibiotics, bone culture pending, growing staph, proteus and enterococcus -Quarter percent Dakin solution wet to dry dressing change 3 times daily left heel wound during this hospitalization. -Silver alginate to right heel wound once daily dressing change. -Pl[facility] in [place] will need wound care referral on discharge/transfer -Will need antibiotic treatment for left calcaneal osteomyelitis No plans for further surgical debridement during this hospitalization, wound is stable at this point would benefit from wound care referral on transfer, plans for treatment of left calcaneus osteomyelitis with long-term IV antibiotics. Okay for discharge/transfer from podiatry standpoint. Dr. 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
[2020-10-27 20:00] LABS: Partial Thromboplastin Time 110.4 SECONDS (23.9-36.7)
[2020-10-27 20:12] LABS: Glucose Point of Care 93 mg/dL (70-110)
--- NOTE | 2020-10-27 20:23 | ECG_ITS ---
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 Measurements Intervals Emery Rate: 66 P: TN: QRS: -40 QRSD: 134 T: 210 QT: 477 QTc: 503 Interpretive Statements ATRIAL FIBRILLATION WITH ABERRANT CONDUCTION OR VENTRICULAR PREMATURE COMPLEXES INTRAVENTRICULAR CONDUCTION DELAY [130+ ms QRS DURATION] INFERIOR MYOCARDIAL INFARCTION [40+ ms Q WAVE AND/OR ST/T ABNORMALITY IN II/aVF], OF INDETERMINATE AGE Compared to ECG 10/23/2020 10:53:38 Ventricular premature complex(es) now present Aberrant conduction of supraventricular beat(s) now present Intraventricular conduction delay now present Myocardial infarct finding now present Sinus rhythm no longer present First degree AV block no longer present Left-axis deviation no longer present Left bundle-branch block no longer present Electronically Signed On 10-29-2020 15:39:00 CDT by Lenin Shaffer M.D. [email or web address]
--- NOTE | 2020-10-27 23:10 | PC.NURSE ---
Noted upon assessment that pt's heart rhythm is irregular. EKG ordered per Dr. Shaffer. EKG shows afib. Dr. Shaffer notified.
[2020-10-27] MEDS: fentaNYL 50 mcg/mL INJ 2mL IVP (23:30)
--- NOTE | 2020-10-27 23:59 | PC.NURSE ---
Sheath Pull 50mcg Fentanyl IVP given pre-procedure. Right femoral artery sheath pulled at 2339. Pressure held for 20 minutes until hemostasis achieved. Site asymptomatic, no hematoma development. Right dorsalis pedal pulses head via doppler. Pt tolerated well.
[2020-10-28] VITALS (23 sets, daily range): BP systolic 97–141; BP diastolic 45–117; PULSE 52–79; RESP 8–24; TEMP 36.5–36.8; O2SAT 86–100
[2020-10-28] MEDS: atorvastatin 40 mg Tablet PO ×2 (00:10→20:34)
[2020-10-28] MEDS: amoxicillin-clav 875-125 mg Tablet 1 TAB PO ×3 (00:10→18:00)
[2020-10-28] MEDS: HYDROcodone-acetaminophen 7.5-325 mg Tablet 1 TAB PO ×4 (01:38→22:06)
[2020-10-28] MEDS: sodium chloride 0.9% 1,000 ML 75 ML IV (01:39)
[2020-10-28 05:44] LABS: Basophils % 0.4 %; Eosinophils # 0.4 10^3/uL (0.0-0.8); Eosinophils % 4.4 %; Hemoglobin 9.3 g/dL (11.7-16.6); Mean Corpuscular Hemoglobin 29.1 pg (28.0-34.0); Mean Corpuscular Volume 93.8 fL (80-94); Mean Platelet Volume 10.9 fL (7.4-10.4); Monocytes # 0.6 10^3/uL (0.2-0.9); Monocytes % 5.7 %; Neutrophils # 7.71 10^3/uL (1.8-7.7); Neutrophils % 79.2 %; Nucleated Red Blood Cells % 0 %; Platelet Count 233 10^3/cmm (130-400); Red Cell Distribution Width 18.6 % (12.1-15.1); White Blood Count 9.7 10^3/uL (4.0-10.0)
[2020-10-28 06:07] LABS: Alanine Aminotransferase 7 U/L (0-41); Albumin Level 2.9 g/dL (3.5-5.2); Alkaline Phosphatase 116 IU/L (40-130); Anion Gap 11.6 (5-19); Aspartate Amino Transferase 15 U/L (0-40); Blood Urea Nitrogen 26 mg/dL (8-23); Calcium 8.3 mg/dL (8.5-10.5); Carbon Dioxide 29 mmol/L (22-29); Chloride 104 mmol/L (98-107); Globulin 2.9 g/dL (1.3-4.6); Glucose 83 mg/dL (65-115); Magnesium 1.9 mg/dL (1.7-2.3); Osmolality Calculated 294 mOsm/kg (285-295); Phosphorus 3.6 mg/dL (2.5-4.5); Potassium 4.6 mmol/L (3.5-5.1); Sodium 140 mmol/L (136-145); Total Bilirubin 0.5 mg/dL (0.15-1.2); Total Protein 5.8 g/dL (6.6-8.7)
--- NOTE | 2020-10-28 06:36 | PC.NURSE ---
Pt's femoral sheath pulled without complication. Site continues to be soft, dry and intact. Bilateral heel dressings changed per orders.
[2020-10-28 07:25] LABS: Glucose Point of Care 91 mg/dL (70-110)
[2020-10-28] MEDS: potassium chloride ER 20 mEq Tablet PO (08:02)
[2020-10-28] MEDS: pantoprazole DR 40 mg Tablet PO (08:02)
[2020-10-28] MEDS: metoprolol tartrate 25 mg Tablet 12.5 MG PO ×2 (08:02→20:33)
[2020-10-28] MEDS: fluconazole 100 mg Tablet PO (08:03)
[2020-10-28] MEDS: clopidogrel 75 mg Tablet PO (08:04)
[2020-10-28] MEDS: aspirin 81 mg EC Tablet PO (08:04)
[2020-10-28] MEDS: levothyroxine 75 mcg Tablet 150 MCG PO (08:04)
--- NOTE | 2020-10-28 08:13 | DCPLANNER ---
Pg 2 of IM updated and reviewed with pt. No questions, copy provided.
[2020-10-28] MEDS: ipratropium-albuterol 3 mL Neb INHALATION (08:57)
--- NOTE | 2020-10-28 09:51 | P.PN_ITS ---
Subjective Subjective: Interval history: Patient underwent successful revascularization of severe TP trunk and anterior tibial artery stenosis yesterday.He has residual stenosis on the right side which we will stage as outpatient. He has new onset afib, heart rates are controlled. Vitals/I&O/Wt Last Vital Signs Temp 98.1 F 10/28/20 08:23 Pulse 62 10/28/20 09:06 Resp 15 10/28/20 09:06 BP 113/60 10/28/20 08:23 Pulse Ox 95 10/28/20 09:06 10/27/20 10/28/20 10/28/20 22:59 06:59 14:59 Intake Total 250 / 250 1000 / 1250 340 / 340 Output Total 400 / 650 250 / 900 Balance -150 / -400 750 / 350 340 / 340 Physical Exam Const: COMMON NORMALS: no acute distress and patient oriented x3 HENMT: COMMON NORMALS: normocephalic HEAD & SCALP: normocephalic Neck/C-Spine: COMMON NORMALS: no JVD Resp: COMMON NORMALS: normal respiratory effort, No retractions, No use of accessory muscles and clear to auscultation bilaterally AUSCULTATION: clear to auscultation bilaterally Cardio: COMMON NORMALS: no JVD, regular rate, regular rhythm, S1 normal heart sound present and S2 normal heart sound present RATE: regular rate RHYTHM: regular rhythm HEART SOUNDS: S1 normal heart sound present and S2 normal hea rt sound present GI: COMMON NORMALS: Normal to inspection, nondistended, normoactive bowel sounds present, Soft to palpation, non-tender, No hepatosplenomegaly present, no masses and no bruits PALPATION: Yes Soft to palpation and Yes No hepatosplenomegaly present Extremity: NARRATIVE EXTREMITY EXAM: Bilateral lower extremities wrapped Neuro: COMMON NORMALS: patient oriented x3 Psych: COMMON NORMALS: mental status grossly normal Data : 10/28/20 04:46 10/28/20 04:46 A&P Assessment and plan (1) Elevated troponin: Troponin elevation possibly secondary to type 2 MO . On asprin and plavix. Stress test shows inferior wall infarct with some augustin-infarct ischemia and small area of ischemia of the apical wall. Patient is chest pain free at this time. As his renal function is abnormal, we prioritized the peripheral revascularization as he has osteomyelitis and non healing and would help with healing process Status: Acute (2) Ischemic cardiomyopathy: Continue losartan. Will benefit from ICD/lifevest. Discussed with patient, he wants to hold off on further procedures Status: Acute (3) ASHD (arteriosclerotic heart disease): Patient will need coronary angiogram at some point as stress test was abnormal. Patient had occasional chest discomfort. However because of elevated creatinine, his peripheral procedure was performed as a priority. We will discuss doing the coronary angiogram as outpatient Status: Acute (4) Venous stasis ulcers of both lower extremities: Patient had a venous Doppler examination before he was found to have no evidence of DVT. Status: Acute (5) Sepsis: Patient is diagnosed with a gram-negative septicemia. Antibiotic treatment as per the primary. May continue with aggressive management of the leg ulcers. His blood culture grew bacteroids fragilis, Proteus mirabilis and bacillus Status: Acute Qualifiers: Sepsis type: sepsis due to unspecified organism Sepsis acute organ dysfunction status: unspecified Qualified Code(s): A41.9 - Sepsis, unspecified organism (6) Type 2 diabetes mellitus: Aggressive management of the diabetes, as per the primary. Status: Acute Qualifiers: Diabetes mellitus usp insulin use: without income tax investigator use Diabetes mellitus complication status: without complication Qualified Code(s): E11.9 - Type 2 diabetes mellitus without complications (7) HTN (hypertension): Currently he is normotensive Status: Acute Qualifiers: Hypertension type: essential hypertension Qualified Code(s): I10 - Essential (primary) hypertension (8) Peripheral arterial disease: In view of the nonhealing ulcers, peripheral angiogram was performed that showed severe left Tibioperoneal trunk and anterior tibial artery stenosis. Undderwent successful revascularization with balloon angioplasty with excellent results. Patient has right sided severe disease that will be revascularized as a staged procedure. Status: Acute (9) Bilateral leg edema: This could be multifactorial. Chronic systolic heart failure, chronic venous stasis, peripheral arterial disease, dependency, etc. are contributing factors. Patient may be carefully treated with diuretics. Continue managing the precipitating factors. Status: Acute (10) Critical lower limb ischemia: peripheral angiogram was performed that showed severe left Tibioperoneal trunk and anterior tibial artery stenosis. Undderwent successful revasculariza tion with balloon angioplasty with excellent results. Patient has right sided severe disease that will be revascularized as a staged procedure. IV fluids given Plavix 75mg daily. Will recommend initiating eliquis 5mg BID for afib Status: Acute (11) New onset a-fib: Patient has new onset afib. Heart rate is controlled. 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 Thank you for the opportunity to evaluate this patient and make these recommendations. Attestations Medical Necessity Statement*: Care expected to cross 2 midnights. Coding Level of Care Code Acute Personnel Consultant for [facility] Diagnoses Elevated troponin R77.8 Ischemic cardiomyopathy I25.5 ASHD (arteriosclerotic heart disease) I25.10 Venous stasis ulcers of both lower extremities I83.019; I83.029; L97.919; L97.929 Sepsis A41.9 Sepsis type: sepsis due to unspecified organism Sepsis acute organ dysfunction status: unspecified Type 2 diabetes mellitus E11.9 Diabetes mellitus income tax investigator insulin use: without usp use Diabetes mellitus complication status: without complication HTN (hypertension) I10 Hypertension type: essential hypertension Peripheral arterial disease I73.9 Bilateral leg edema R60.0 Critical lower limb ischemia I70.229 New onset a-fib I48.91
[2020-10-28] MEDS: sodium hypochlorite 0.25% Btl 473 mL 1 APPLIC TOPICAL ×2 (10:42→20:35)
[2020-10-28] MEDS: apixaban 5 mg Tablet PO ×2 (10:44→20:34)
[2020-10-28 11:27] LABS: Glucose Point of Care 175 mg/dL (70-110)
--- NOTE | 2020-10-28 11:39 | P.PN_ITS ---
Subjective Subjective: Interval history: Seen bedside this morning is at the cardiac stepdown unit denies any complaints. Underwent lower extremity balloon angioplasty yesterday. Patient denies any subjective nausea, vomiting, fever, chills, shortness of breath or chest pain. Vitals/I&O/Wt Last Vital Signs Temp 98.1 F 10/28/20 08:23 Pulse 62 10/28/20 09:06 Resp 15 10/28/20 09:06 BP 113/60 10/28/20 08:23 Pulse Ox 95 10/28/20 09:06 10/27/20 10/28/20 10/28/20 22:59 06:59 14:59 Intake Total 250 / 250 1000 / 1250 1340 / 1340 Output Total 400 / 650 250 / 900 Balance -150 / -400 750 / 350 1340 / 1340 Physical Exam Narrative: EXAM NARRATIVE: Patient is alert and oriented ?3 and in no acute distress. The following is a focused bilateral lower extremity exam. VASCULAR: Dorsalis pedis palpable posterior tibial arteries palpable. Capillary refill time less than 5 seconds to the distal hallux bilaterally. Calf is supple and nontender proximally and distally. Pitting edema to lower extremities left greater than right. Diminished pedal hair growth bilaterally. NEUROLOGICAL: Protective sensation intact 0/10 sites, tested with [place] Denise monofilament to bilateral feet. DERMATOLOGICAL: Venous stasis ulcerations resolving bilateral legs limited to breakdown of skin. Cellulitis to the distal one third of the left leg source is from the left heel improving. Increased granulation tissue without erythema or purulence at the right heel wound 95% granulation tissue 5% fibrotic. Left heel wound exposed bone, no purulent drainage improved erythema. Left posterior heel wound 6 cm x 5 cm x 1.5 cm 50% granular 50% fibrotic. Healthy granular wound to the right plantar heel improving with epithelialized margin no surrounding erythema, warmth or drainage measures 2 cm x 1.8 cm x 0.2 cm. MUSCULOSKELETAL: Tenderness at left heel. Hammertoe deformities 2 through 5 bilaterally are reducible. Ankle joint dorsiflexion is to neutral. No pain with posterior calf squeeze bilaterally. 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 Sepsis resolved. -Incision and debridement left heel with bone biopsy of left calcaneus performed 10/20/20 -Will need to offload bilateral heels at all times while at rest during this hospitalization as well as at discharge/transfer. PODUS boots will need to be utilized -Currently receiving empiric IV antibiotics, bone culture pending, growing staph, proteus and enterococcus -Quarter percent Dakin solution wet to dry dressing change 3 times daily left heel wound during this hospitalization. -Silver alginate to right heel wound once daily dressing change. 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 Hemostasis achieved via manual pressure. No anesthesia required secondary to neuropathy. Patient tolerated debridement well and wound had improved appearance post debridement. No plans for further surgical debridement during this hospitalization, wound is stable at this point would benefit from wound care referral on transfer, plans for treatment of left calcaneus osteomyelitis with long-term IV antibiotics. Okay for discharge/transfer from podiatry standpoint. Dr. 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
[2020-10-28 12:04] LABS: SARS Covid-2 Antigen Negative (Negative)
--- NOTE | 2020-10-28 12:14 | P.DS_ITS ---
Discharge Providers Date of Admission: 10/17/20 22:40 Date of Discharge: October 28, 2020 Attending Provider at Admission: Stewart Walsh MD Attending Provider at Discharge: Nathan Zaman MD Primary Care Provider: Jose Manuel Mooney MD Diagnoses at Discharge Discharge Diagnosis (1) Diabetes mellitus with diabetic polyneuropathy: Status: Acute Qualifiers: Diabetes mellitus joint terminal attack controller insulin use: with joint terminal attack controller use Diabetes mellitus type: type 2 Qualified Code(s): E11.42 - Type 2 diabetes mellitus with diabetic polyneuropathy; Z79.4 - long term care phlebotomist (current) use of insulin (2) 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 Espinoza he was discharged on Omnicef 1 week regimen, patient refused SNF placement, he also was diagnosed with fracture of T8-T11 spinous process fracture after a fall, patient also refused home health services. Full- thickness ulcer of right calcaneal area, stage II pressure ulcer of medial aspect of left gluteal region, follows up with wound care clinic. Who presented to [facility] due to complaints of generalized weakness and fevers Patient was admitted to [facility] for left lower extremity cellulitis, wound infection, gangrene, with evidence of osteomyelitis of the calcaneum with sepsis and bacteremia. Patient was initially managed with broad- spectrum antibiotic therapy, had debridement of wound and gangrene by Dr. Perez, cultures positive for Proteus, MRSA, Enterococcus, Proteus. Patient will be discharged [facility] [place] [facility], IV vancomycin, p.o. Augmentin, with close follow-up with wound care, and infectious disease as outpatient. For patient's peripheral arterial disease, underwent peripheral angiogram, showed severe left Tibioperoneal trunk and anterior tibial artery stenosis, had successful revascularization with balloon angioplasty. Patient also has right sided severe disease that will be revascularized as a staged procedure, in the near future On admission patient was found to have elevated troponins, had a positive stress test: -There is a large sized mostly fixed defect in the inferior wall with partial reversibility. This is consistent with prior infarct with singificant augustin- infarct ischemia in the RCA territory. Patient has reversible perfusion defect of the apical and apical inferior zepeda. This represents ischemia. -Patient does have CKD, creatinine 1.5, after discussion with patient of the options of peripheral angiogram and coronary angiography, and the importance of his left lower extremity osteomyelitis in terms of wound healing and optimal outcome, patient and team decided to perform peripheral angiogram first -In terms of coronary angiography: -After discussion with patient, outpatient follow-up and consideration of cardiac catheterization has been agreed upon, patient does want to have a second opinion at [facility], after discussion of risks and benefits, voices understanding, all questions answered, agreed to proceed -If he has chest pain he should come to the emergency room immediately -Discharged on Plavix, statin, metoprolol -Patient has declined LifeVest For his CHF, continue losartan, Lasix 40 mg twice daily with potassium replacement has been held, for 48 hours status post angiogram to decrease risk of contrast-induced nephropathy. custodial has been instructed to recheck creatinine on Friday, if less than 1.5, resume Lasix custodial advised to monitor for contrast-induced nephropathy -For your left lower extremity cellulitis and osteomyelitis -Will need to offload bilateral heels at all times while at rest, PODUS boots will need to be utilized -Quarter percent Dakin solution wet to dry dressing change 3 times daily left heel wound -Silver alginate to right heel wound once daily dressing change -Referral made to wound care -For antibiotics -Vancomycin 1000 mg every 24 hours, vancomycin trough will be drawn today, please call in the afternoon for the result, your pharmacy should adjust the vancomycin dose based on the trough -Vancomycin IV for 34 remaining days -Augmentin p.o. for 34 remaining days -Please try to keep vancomycin trough between 15-20, monitor CBC and CMP weekly for the next 5 weeks -I have also discharge you on -creatinine on discharge 1.5 -For your peripheral arterial disease please take Plavix and statin as prescribed -Please follow-up with cardiology -For your new onset atrial fibrillation please take Eliquis 5 mg twice daily -Aspirin has been stopped -For your positive stress test, please follow-up with cardiology as outpatient for consideration of cardiac catheterization and possible referral for second opinion -As you have received contrast, with a creatinine of 1.5 on discharge which is stable I have held your Lasix and potassium until Friday -Recheck creatinine on Friday, if creatinine is less than 1.5, then okay to resume Lasix and potassium -Please monitor creatinine on Friday, and then once weekly -PICC line placed during this hospitalization, should be discontinued after antibiotic therapy has been finished, patient has been cleared by infectious dis ease and wound care -Fluconazole for a yeast UTI UTI -Please monitor for contrast-induced nephropathy, monitor urine output, keep a close eye on his creatinine on Friday, then once weekly or sooner depending on his clinical progress Physical Exam Const: COMMON NORMALS: no acute distress and patient oriented x3 HENMT: COMMON NORMALS: normocephalic HEAD & SCALP: normocephalic Neck/C-Spine: COMMON NORMALS: no JVD Resp: COMMON NORMALS: normal respiratory effort, No retractions, No use of accessory muscles and clear to auscultation bilaterally AUSCULTATION: clear to auscultation bilaterally Cardio: COMMON NORMALS: no JVD, regular rate, regular rhythm, S1 normal heart sound present and S2 normal heart sound present RATE: regular rate RHYTHM: regular rhythm HEART SOUNDS: S1 normal heart sound present and S2 normal heart sound present GI: COMMON NORMALS: Normal to inspection, nondistended, normoactive bowel sounds present, Soft to palpation, non-tender, No hepatosplenomegaly present, no masses and no bruits PALPATION: Yes Soft to palpation and Yes No hepatosplenomegaly present Extremity: NARRATIVE EXTREMITY EXAM: Bilateral lower extremity in a Cam boot Neuro: COMMON NORMALS: patient oriented x3 Discharge Data Data Completed and Pending: Completed Studies During Hospitalization Category Date Time Status CXRP [XR chest 1V portable [id number]] R outine Exams 10/24/20 08:[address] MIBI [Sestamibi Stress Test Reque st Exams 10/23/20 07:11 Completed ] Routine XR chest 1V stephanie ble [id number] Routine Exams 10/21/20 14:29 Completed XR chest 1V stephanie ble 14025 Urgent Exams 10/17/20 20:18 Completed XR foot RT 2V 736 20 Routine Exams 10/18/20 01:30 Completed NM pascual perf SPECT r/s* [id number] Routin e Nuc Med 10/23/20 07:11 [place] [id number] Rout ine Ultrasound 10/19/20 05:00 Completed Pending at discharge Category Date Time Status 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 Routin e Exams 10/27/20 15:31 Ordered Complete Blood Co unt w/Auto AM LABS Lab 10/29/20 04:00 Ordered Complete Blood Co unt w/Auto AM LABS Lab 10/30/20 04:00 Ordered Comprehensive Met abolic Panel AM LA BS Lab 10/29/20 04:00 Ordered Comprehensive Met abolic Panel AM LA BS Lab 10/30/20 04:00 Ordered Magnesium AM LABS Lab 10/29/20 04:00 Ordered Magnesium AM LABS Lab 10/30/20 04:00 Ordered Phosphorus AM LAB S Lab 10/29/20 04:00 Ordered Phosphorus AM LAB S Lab 10/30/20 04:00 Ordered Vancomycin Trough Timed Lab 10/28/20 12:00 Ordered Labs from last 24 hours 10/28/20 10/28/20 10/28/20 11:14 10:30 07:01 WBC RBC Hgb Hct MCV MCH MCHC RDW Plt Count MPV Neut % (Auto) Lymph % (Auto) [place] % (Auto) Eos % (Auto) Baso % (Auto) Neut # (Auto) Lymph # (Auto) [place] # (Auto) Eos # (Auto) Baso # (Auto) Nucleated RBC % (a uto) Nucleated RBCs # APTT Sodium Potassium Chloride Carbon Dioxide Anion Gap BUN Creatinine GFR Calculation Glucose POC Glucose 175 H 91 Calculated Osmolal ity Calcium Phosphorus Magnesium Total Bilirubin AST ALT Alkaline Phosphata se Total Protein Albumin Globulin SARS-CoV-2 Ag (Rap id) Negative 10/28/20 10/28/20 10/27/20 04:46 04:46 21:20 WBC 9.7 RBC 3.20 L Hgb 9.3 L Hct 30.0 L MCV 93.8 MCH 29.1 MCHC 31.0 RDW 18.6 H Plt Count 233 MPV 10.9 H Neut % (Auto) 79.2 Lymph % (Auto) 10.0 [place] % (Auto) 5.7 Eos % (Auto) 4.4 Baso % (Auto) 0.4 Neut # (Auto) 7.71 H Lymph # (Auto) 1.0 [place] # (Auto) 0.6 Eos # (Auto) 0.4 Baso # (Auto) 0.0 Nucleated RBC % (a uto) 0 Nucleated RBCs # 0.0 APTT 46.0 H D Sodium 140 Potassium 4.6 Chloride 104 Carbon Dioxide 29 Anion Gap 11.6 BUN 26 H Creatinine 1.5 H GFR Calculation Not Reportable Glucose 83 POC Glucose Calculated Osmolal ity 294 Calcium 8.3 L Phosphorus 3.6 Magnesium 1.9 Total Bilirubin 0.5 AST 15 ALT 7 Alkaline Phosphata se 116 Total Protein 5.8 L Albumin 2.9 L Globulin 2.9 SARS-CoV-2 Ag (Rap id) 10/27/20 10/27/20 19:26 19:25 WBC RBC Hgb Hct MCV MCH MCHC RDW Plt Count MPV Neut % (Auto) Lymph % (Auto) [place] % (Auto) Eos % (Auto) Baso % (Auto) Neut # (Auto) Lymph # (Auto) [place] # (Auto) Eos # (Auto) Baso # (Auto) Nucleated RBC % (a uto) Nucleated RBCs # APTT 110.4 H Sodium Potassium Chloride Carbon Dioxide Anion Gap BUN Creatinine GFR Calculation Glucose POC Glucose 93 Calculated Osmolal ity Calcium Phosphorus Magnesium Total Bilirubin AST ALT Alkaline Phosphata se Total Protein Albumin Globulin SARS-CoV-2 Ag (Rap id) Vitals: Last Vital Signs Temp 98.1 F 10/28/20 08:23 Pulse 62 10/28/20 09:06 Resp 15 10/28/20 09:06 BP 113/60 10/28/20 08:23 Pulse Ox 95 10/28/20 09:06 Discharge Plan Discharge Patient Disposition: Xfer SNF Condition: Stable Prescriptions: New hydrocodone-acetaminophen 7.5-325 mg Tablet 1 tab PO Q4H PRN (Reason: Moderate Pain) 7 Days Qty: 42 RF: 0 insulin aspart U-100 [Novolog U-100 Insulin aspart] 100 unit/mL Solution See Rx Instructions .ROUTE .COMPLEX Qty: 10 RF: 0 atorvastatin 40 mg Tablet 40 mg PO BEDTIME 30 Days Qty: 30 RF: 0 metoprolol tartrate 25 mg Tablet 12.5 mg PO BID@0900,2100 30 Days Qty: 60 RF: 0 clopidogrel 75 mg Tablet 75 mg PO DAILY 30 Days Qty: 30 RF: 0 fluconazole 100 mg Tablet 100 mg PO DAILY 8 Days Qty: 8 RF: 0 Eliquis 5 mg Tablet 5 mg PO Q12H 30 Days Qty: 60 RF: 0 vancomycin 1,000 mg recon soln 1,000 mg IV Q24H 34 Days Qty: 10 RF: 0 polyethylene glycol 3350 17 gram Powder In Packet 17 g PO DAILY 30 Days Qty: 30 RF: 0 amoxicillin-pot clavulanate 875-125 mg Tablet 1 tab PO BID 34 Days Qty: 68 RF: 0 nitroglycerin 0.4 mg Tablet, Sublingual 0.4 mg sublingual Q5M PRN (Reason: Chest Pain) 30 Days Qty: 30 RF: 0 Continued spironolactone 25 mg tablet 25 mg PO DAILY RF: 0 metformin 500 mg tablet extended release 24 hr 500 mg PO BID RF: 0 omeprazole 20 mg capsule,delayed release(DR/EC) 20 mg PO DAILY 28 Days RF: 0 hydrocodone-acetaminophen 5-325 mg tablet 1 tab PO Q6H PRN (Reason: Pain) RF: 0 levothyroxine 75 mcg tablet 150 mcg PO DAILY RF: 0 Held furosemide 40 mg tablet 40 mg PO BID 30 Days Qty: 0 RF: 0 Hold Instructions: Resume on 10/30/20. hold until friday , recheck bmp, if cr looks <1.5 then i would resume lasix potassium chloride 10 mEq tablet extended release 20 meq PO BID RF: 0 Hold Instructions: Resume on 10/30/20. hold with lasix Discontinued aspirin 81 mg Tablet,Chewable 81 mg PO DAILY RF: 0 levothyroxine 150 mcg tablet 150 mcg PO DAILY RF: 0 Discharge Orders: Discharge Order (Routine); Ordered 10/28/20 Ordered By: Nathan Zaman Referrals: [facility] [Other] Ashlie Kirk MD [Physician] - 2 weeks (consideration for cath) Hiwot Trejo MD [Hospitalist] - 1 month (LLE osteomyelitis and bacteremia) Jose Manuel Mooney MD [Primary Care Provider] - 1-3 days [facility], [Staff Physician] - 1-3 days (LLE cellultis, osteo) Discharge Diet: Cardiac Discharge Activity: As per PT/OT instructions Activity Restrictions/Additional Instructions: -For your left lower extremity cellulitis and osteomyelitis -Will need to offload bilateral heels at all times while at rest, PODUS boots will need to be utilized -Quarter percent Dakin solution wet to dry dressing change 3 times daily left heel wound -Silver alginate to right heel wound once daily dressing change -Referral made to wound care -For antibiotics -Vancomycin 1000 mg every 24 hours, vancomycin trough will be drawn today, please call in the afternoon for the result, your pharmacy should adjust the vancomycin dose based on the trough -Vancomycin IV for 34 remaining days -Augmentin p.o. for 34 remaining days -Please try to keep vancomycin trough between 15-20, monitor CBC and CMP weekly for the next 5 weeks -I have also discharge you on -creatinine on discharge 1.5 -For your peripheral arterial disease please take Plavix and statin as prescribed -Please follow-up with cardiology -For your new onset atrial fibrillation please take Eliquis 5 mg twice daily -Aspirin has been stopped -For your positive stress test, please follow-up with cardiology as outpatient for consideration of cardiac catheterization and possible referral for second opinion -As you have received contrast, with a creatinine of 1.5 on discharge which is stable I have held your Lasix and potassium until Friday -Recheck creatinine on Friday, if creatinine is less than 1.5, then okay to resume Lasix and potassium -Please monitor creatinine on Friday, and then once weekly -PICC line placed during this hospitalization, should be discontinued after antibiotic therapy has been finished, patient has been cleared by infectious disease and wound care -Fluconazole for a yeast UTI UTI Discharge Attestations Time Spent in Discharge Care*: greater than 30 min Quality Metrics Clinical Quality Measures During this hospital stay, did patient experience: None Coding Level of Care Code Acute [facility] [place] note Exam Detailed Diagnoses Diabetes mellitus with diabetic polyneuropathy E11.42; Z79.4 Diabetes mellitus half-way insulin use: with joint terminal attack controller use Diabetes mellitus type: type 2 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
[2020-10-28 13:36] LABS: Vancomycin Trough 15.1 ug/mL (10-15)
[2020-10-28] MEDS: vancomycin 1,000 MG in sodium chloride 0.9% 250 ML 250 MG IV (14:39)
--- NOTE | 2020-10-28 15:13 | P.PN_ITS ---
Subjective Subjective: Interval history: Patient was examined this morning, he is alert oriented x3, getting a breathing treatment, he has no complaints, he was supposed to be discharged today to the [place] [facility], however they advised us that they cannot take him until Friday Vitals/I&O/Wt Last Vital Signs Temp 98.2 F 10/28/20 12:00 Pulse 55 L 10/28/20 12:00 Resp 9 L 10/28/20 12:00 BP 97/45 10/28/20 12:00 Pulse Ox 94 10/28/20 12:00 10/28/20 10/28/20 10/28/20 06:59 14:59 22:59 Intake Total 1000 / 1250 1580 / 1580 Output Total 250 / 900 Balance 750 / 350 1580 / 1580 Physical Exam Const: COMMON NORMALS: no acute distress and patient oriented x3 HENMT: COMMON NORMALS: normocephalic HEAD & SCALP: normocephalic Neck/C-Spine: COMMON NORMALS: no JVD Resp: COMMON NORMALS: normal respiratory effort, No retractions, No use of accessory muscles and clear to auscultation bilaterally AUSCULTATION: clear to auscultation bilaterally Cardio: COMMON NORMALS: no JVD, regular rate, regular rhythm, S1 normal heart sound present and S2 normal heart sound present RATE: regular rate RHYTHM: regular rhythm HEART SOUNDS: S1 normal heart sound present and S2 normal heart sound present GI: COMMON NORMALS: Normal to inspection, nondistended, normoactive bowel sounds present, Soft to palpation, non-tender, No hepatosplenomegaly present, no masses and no bruits PALPATION: Yes Soft to palpation and Yes No hepatosplenomegaly present Extremity: COMMON NORMALS: capillary refill normal, no clubbing, cyanosis or edema, no calf tenderness and no pedal edema NARRATIVE EXTREMITY EXAM: Bilateral lower extremity in a Cam boot Neuro: COMMON NORMALS: patient oriented x3 Psych: COMMON NORMALS: mental status grossly normal Data : 10/28/20 04:46 10/28/20 04:46 A&P Additional A&P Information Sepsis: Secondary to left lower extremity wound infection, cellulitis, status post debridement of wound and gangrene, with 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 Diflucan, needs 2 weeks, starting on 10/22/2020 -on Augmentin -Switch to vancomycin from daptomycin, due to insurance coverage issues, pharmacy to dose, monitor Vanco trough will start off on the lower dose given creatinine 1.5 -Tissue culture positive for Proteus, MRSA, Enterococcus, Proteus -Total of 6 weeks of IV antibiotics starting on 10/20 -Will be discharged on Friday -For patient's peripheral arterial disease, underwent peripheral angiogram, showed severe left Tibioperoneal trunk and anterior tibial artery stenosis, had successful revascularization with balloon angioplasty. Patient also has right sided severe disease that will be revascularized as a staged procedure, in the near future -hold lasix, cr 1.5, fluids stopped - hydrocodone to 7.5 milligrams p.o. every 24 hours -Full code -Heparin for DVT prophylaxis Weakness: Secondary to acute infection, bacteremia, also noted history of cardiomyopathy, CHF. Treat as above. Mobilize with physical deconditioning, would benefit from rehabilitation. Discharge planning working with him and family with regards to placement. Anemia: Monitor hemoglobin CKD (chronic kidney disease): Type 2 diabetes mellitus, insulin sliding scale Yeast UTI, Diflucan Elevated troponin: -Positive stress test -There is a large sized mostly fixed defect in the inferior wall with partial reversibility. This is consistent with prior infarct with singificant augustin- infarct ischemia in the RCA territory. Patient has reversible perfusion defect of the apical and apical inferior zepeda. This represents ischemia -Currently chest pain-free -Is on aspirin, Plavix, metoprolol 12.5 twice daily -Continue telemetry monitoring, continue to monitor for chest pain -Agrees to coronary angiogram, however current laid there is no urgent need, and peripheral angiogram takes precedence -Coronary angiogram can be done on an emergent basis if required, however he can follow-up as outpatient Peripheral arterial disease: -As above New onset onset atrial fibrillation, rate controlled, continue metoprolol, start Eliquis 5 mg twice daily CHF without acute exacerbation hold Lasix, hold spironolactone Chronic hyponatremia Plan for today continue PT OT, continue medications, monitor creatinine, and hopefully discharge on Friday Attestations Medical Necessity Statement*: Patient requires hospitalization for sepsis secondary to cellulitis, osteomyelitis, peripheral arterial disease, A. fib Coding Level of Care Code Acute Load Out Person for Chaitanya Parsons
[2020-10-28 16:50] LABS: Glucose Point of Care 135 mg/dL (70-110)
--- NOTE | 2020-10-28 19:41 | PC.NURSE ---
Received bedside report from JUDITH Leyva. Patient resting in bed. Patient requesting to leave overhead light on. Speech garbled but normal for him.
[2020-10-28 20:16] LABS: Glucose Point of Care 168 mg/dL (70-110)
[2020-10-28] MEDS: ALPRAZolam 0.25 mg Tablet PO (20:33)
--- NOTE | 2020-10-28 20:58 | PC.NURSE ---
Dressing change performed to left heel as ordered. Patient tolerate well.
[2020-10-29] VITALS (15 sets, daily range): BP systolic 96–124; BP diastolic 51–76; PULSE 40–72; RESP 14–25; TEMP 36.4–36.7; O2SAT 94–98
[2020-10-29 05:12] LABS: Basophils # 0.1 10^3/uL (0.0-0.1); Basophils % 0.6 %; Eosinophils # 0.7 10^3/uL (0.0-0.8); Hematocrit 29.4 % (42.0-52.0); Hemoglobin 8.9 g/dL (11.7-16.6); Lymphocytes # 1.1 10^3/uL (0.8-4.8); Lymphocytes % 12.4 %; Mean Corpuscular HGB Conc 30.3 g/dL (30.0-36.0); Mean Corpuscular Hemoglobin 28.4 pg (28.0-34.0); Mean Corpuscular Volume 93.9 fL (80-94); Monocytes # 0.7 10^3/uL (0.2-0.9); Monocytes % 7.2 %; Neutrophils # 6.42 10^3/uL (1.8-7.7); Neutrophils % 71.5 %; Nucleated Red Blood Cells % 0 %; Platelet Count 216 10^3/cmm (130-400); Red Blood Count 3.13 10^6/uL (4.1-5.3)
[2020-10-29 05:41] LABS: Alanine Aminotransferase < 5 U/L (0-41); Albumin Level 2.8 g/dL (3.5-5.2); Alkaline Phosphatase 118 IU/L (40-130); Anion Gap 14.7 (5-19); Aspartate Amino Transferase 11 U/L (0-40); Blood Urea Nitrogen 31 mg/dL (8-23); Calcium 8.1 mg/dL (8.5-10.5); Carbon Dioxide 26 mmol/L (22-29); Chloride 103 mmol/L (98-107); Creatinine Clr Calc Pharmacy 23.4819; Globulin 3.2 g/dL (1.3-4.6); Glucose 73 mg/dL (65-115); Magnesium 1.8 mg/dL (1.7-2.3); Osmolality Calculated 293 mOsm/kg (285-295); Potassium 4.7 mmol/L (3.5-5.1); Sodium 139 mmol/L (136-145); Total Bilirubin 0.5 mg/dL (0.15-1.2)
[2020-10-29 06:53] LABS: Glucose Point of Care 94 mg/dL (70-110)
--- NOTE | 2020-10-29 09:03 | PM.PN ---
Subjective Subjective: Interval history: Patient has developed Contrast induced nephropathy. Creatinine is 2.7 today.Getting IV fluids. Symptomatically he is doing well. Vitals/I&O/Wt Last Vital Signs Temp 97.9 F 10/29/20 07:22 Pulse 68 10/29/20 07:35 Resp 18 10/29/20 07:35 BP 113/63 10/29/20 07:22 Pulse Ox 98 10/29/20 07:35 10/28/20 10/29/20 10/29/20 22:59 06:59 14:59 Intake Total 1390 / 2970 240 / 240 Balance 1390 / 2970 240 / 240 Physical Exam Const: COMMON NORMALS: no acute distress and patient oriented x3 HENMT: COMMON NORMALS: normocephalic HEAD & SCALP: normocephalic Neck/C-Spine: COMMON NORMALS: no JVD Resp: COMMON NORMALS: normal respiratory effort, No retractions, No use of accessory muscles and clear to auscultation bilaterally AUSCULTATION: clear to auscultation bilaterally Cardio: COMMON NORMALS: no JVD, regular rate, regular rhythm, S1 normal heart sound present and S2 normal heart sound present RATE: regular rate RHYTHM: regular rhythm HEART SOUNDS: S1 normal heart sound present and S2 normal heart sound present GI: COMMON NORMALS: Normal to inspection, nondistended, normoactive bowel sounds present, Soft to palpation, non-tender, No hepatosplenomegaly present, no masses and no bruits PALPATION: Yes Soft to palpation and Yes No hepatosplenomegaly present Extremity: NARRATIVE EXTREMITY EXAM: Bilateral lower extremities wrapped Neuro: COMMON NORMALS: patient oriented x3 Psych: COMMON NORMALS: mental status grossly normal Data : 10/30/20 04:40 10/30/20 04:40 A&P Assessment and plan (1) Elevated troponin: Troponin elevation possibly secondary to type 2 [place] . On asprin and plavix. Stress test shows inferior wall infarct with some augustin-infarct ischemia and small area of ischemia of the apical wall. Patient is chest pain free at this time. As his renal function is abnormal, we prioritized the peripheral revascularization as he has osteomyelitis and non healing and would help with healing process. Can Cardiac cath as outpatient once renal function normalizes Status: Acute (2) Ischemic cardiomyopathy: Continue losartan. Will benefit from ICD/lifevest. Discussed with patient, he wants to hold off on further procedures Status: Acute (3) ASHD (arteriosclerotic heart disease): Patient will need coronary angiogram at some point as stress test was abnormal. Patient had occasional chest discomfort. However because of elevated creatinine, his peripheral procedure was performed as a priority. We will discuss doing the coronary angiogram as outpatient Status: Acute (4) Venous stasis ulcers of both lower extremities: Patient had a venous Doppler examination before he was found to have no evidence of DVT. Status: Acute (5) Sepsis: Patient is diagnosed with a gram-negative septicemia. Antibiotic treatment as per the primary. May continue with aggressive management of the leg ulcers. His blood culture grew bacteroids fragilis, Proteus mirabilis and bacillus Status: Acute Qualifiers: Sepsis type: sepsis due to unspecified organism Sepsis acute organ dysfunction status: unspecified Qualified Code(s): A41.9 - Sepsis, unspecified organism (6) Type 2 diabetes mellitus: Aggressive management of the diabetes, as per the primary. Status: Acute Qualifiers: Diabetes mellitus group home insulin use: without geophysical party chief use Diabetes mellitus complication status: without complication Qualified Code(s): E11.9 - Type 2 diabetes mellitus without complications (7) HTN (hypertension): Currently he is normotensive Status: Acute Qualifiers: Hypertension type: essential hypertension Qualified Code(s): I10 - Essential (primary) hypertension (8) Peripheral arterial disease: In view of the nonhealing ulcers, peripheral angiogram was performed that showed severe left Tibioperoneal trunk and anterior tibial artery stenosis. Undderwent successful revascularization with balloon angioplasty with excellent results. Patient has right sided severe disease that will be revascularized as a staged procedure. Status: Acute (9) Bilateral leg edema: This could be multifactorial. Chronic systolic heart failure, chronic venous stasis, peripheral arterial disease, dependency, etc. are contributing factors. Patient may be carefully treated with diuretics. Continue managing the precipitating factors. Status: Acute (10) Critical lower limb ischemia: peripheral angiogram was performed that showed severe left Tibioperoneal trunk and anterior tibial artery stenosis. Undderwent successful revascularization with balloon angioplasty with excellent results. Patient has right sided severe disease that will be revascularized as a staged procedure. IV fluids given Plavix 75mg daily. Will recommend eliquis 5mg BID for afib Status: Acute (11) New onset a-fib: Patient has new onset afib. Heart rate is controlled. Will recommend plavix and eliquis 5mg BID Status: Acute (12) Contrast dye induced nephropathy: Patient has baseline CKD and has developed worsening of renal function today likely secondary to Contrast induced nephropathy. Hold Lasix. 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 Thank you for the opportunity to evaluate this patient and make these recommendations. Attestations Medical Necessity Statement*: Care expected to cross 2 midnights Coding Level of Care Code Acute Butadiene Converter Operator for Chg Fwd Diagnoses Elevated troponin R77.8 Ischemic cardiomyopathy I25.5 ASHD (arteriosclerotic heart disease) I25.10 Venous stasis ulcers of both lower extremities I83.019; I83.029; L97.919; L97.929 Sepsis A41.9 Sepsis type: sepsis due to unspecified organism Sepsis acute organ dysfunction status: unspecified Type 2 diabetes mellitus E11.9 Diabetes mellitus group home insulin use: without group home use Diabetes mellitus complication status: without complication HTN (hypertension) I10 Hypertension type: essential hypertension Peripheral arterial disease I73.9 Bilateral leg edema R60.0 Critical lower limb ischemia I70.229 New onset a-fib I48.91 Contrast dye induced nephropathy N14.1; T50.8X5A
[2020-10-29] MEDS: fluconazole 100 mg Tablet PO (09:16)
[2020-10-29] MEDS: amoxicillin-clav 875-125 mg Tablet 1 TAB PO ×2 (09:16→18:44)
[2020-10-29] MEDS: levothyroxine 75 mcg Tablet 150 MCG PO (09:17)
[2020-10-29] MEDS: sodium chloride 0.9% 1,000 ML 75 ML IV ×2 (09:23→21:25)
[2020-10-29] MEDS: clopidogrel 75 mg Tablet PO (09:26)
[2020-10-29] MEDS: apixaban 5 mg Tablet PO ×2 (09:26→21:20)
[2020-10-29] MEDS: pantoprazole DR 40 mg Tablet PO (09:52)
--- NOTE | 2020-10-29 10:06 | PC.NURSE ---
Dressing changed to patients R heel and L heel per wound care orders. Patient tolerated well with no complaints.
[2020-10-29] MEDS: sodium hypochlorite 0.25% Btl 473 mL 1 APPLIC TOPICAL ×2 (10:49→21:31)
[2020-10-29] MEDS: metoprolol tartrate 25 mg Tablet 12.5 MG PO ×2 (10:50→21:20)
[2020-10-29 11:33] LABS: Glucose Point of Care 144 mg/dL (70-110)
--- NOTE | 2020-10-29 11:34 | PM.PN ---
Subjective Subjective: Interval history: Patient was examined this morning, he tells me is doing well, blood pressure is a bit soft, no lightheadedness, no dizziness, no chest pain, no palpitations, he had a peripheral angiogram yesterday, his creatinine is up to 2.7, advised that we will start him on gentle IV hydration, monitor creatinine closely, hopefully if his creatinine stabilizes by tomorrow, he has been accepted in the [facility] and they can take him tomorrow Vitals/I&O/Wt Last Vital Signs Temp 97.9 F 10/29/20 07:22 Pulse 68 10/29/20 07:35 Resp 18 10/29/20 07:35 BP 96/54 10/29/20 09:33 Pulse Ox 98 10/29/20 07:35 10/28/20 10/29/20 10/29/20 22:59 06:59 14:59 Intake Total 1390 / 2970 240 / 240 Balance 1390 / 2970 240 / 240 Physical Exam Const: COMMON NORMALS: no acute distress and patient oriented x3 HENMT: COMMON NORMALS: normocephalic HEAD & SCALP: normocephalic Neck/C-Spine: COMMON NORMALS: no JVD Resp: COMMON NORMALS: normal respiratory effort, No retractions, No use of accessory muscles and clear to auscultation bilaterally AUSCULTATION: clear to auscultation bilaterally Cardio: COMMON NORMALS: no JVD, regular rate, regular rhythm, S1 normal heart sound present and S2 normal heart sound present RATE: regular rate RHYTHM: regular rhythm HEART SOUNDS: S1 normal heart sound present and S2 normal heart sound present GI: COMMON NORMALS: Normal to inspection, nondistended, normoactive bowel sounds present, Soft to palpation, non-tender, No hepatosplenomegaly present, no masses and no bruits PALPATION: Yes Soft to palpation and Yes No hepatosplenomegaly present Extremity: NARRATIVE EXTREMITY EXAM: Bilateral lower extremity in a boot Neuro: COMMON NORMALS: patient oriented x3 Psych: COMMON NORMALS: mental status grossly normal Data : 10/29/20 04:57 10/29/20 04:57 A&P Assessment and plan (1) Diabetes mellitus with diabetic polyneuropathy: Status: Acute Qualifiers: Diabetes mellitus type: type 2 Diabetes mellitus group home insulin use: with dermatology sales representative use Qualified Code(s): E11.42 - Type 2 diabetes mellitus with diabetic polyneuropathy; Z79.4 - morgue librarian (current) use of insulin (2) 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 Diflucan, needs 2 weeks, starting on 10/22/2020 -on Augmentin -Switch to vancomycin from daptomycin, due to insurance coverage issues, pharmacy to dose, monitor Vanco trough will start off on the lower, vancomycin currently on hold given creatinine of 2.7 -Tissue culture positive for Proteus, MRSA, Enterococcus, Proteus -Total of 6 weeks of IV antibiotics starting on 10/20 -Will be discharged on Friday -For patient's peripheral arterial disease, underwent peripheral angiogram, showed severe left Tibioperoneal trunk and anterior tibial artery stenosis, had successful revascularization with balloon angioplasty. Patient also has right sided severe disease that will be revascularized as a staged procedure, in the near future -hold lasix, cr 2.7, normal saline 75 cc an hour, monitor for fluid overload - hydrocodone to 7.5 milligrams p.o. every 24 hours -Full code -Heparin for DVT prophylaxis Weakness: Secondary to acute infection, bacteremia, also noted history of cardiomyopathy, CHF. Treat as above. Mobilize with physical deconditioning, would benefit from rehabilitation. Discharge planning working with him and family with regards to placement. Anemia: Monitor hemoglobin CKD (chronic kidney disease): Creatinine 2.7, likely some component of contrast-induced nephropathy, started on fluids, monitor urine output Type 2 diabetes mellitus, insulin sliding scale Yeast UTI, Diflucan Elevated troponin: -Positive stress test -There is a large sized mostly fixed defect in the inferior wall with partial reversibility. This is consistent with prior infarct with singificant augustin- infarct ischemia in the RCA territory. Patient has reversible perfusion defect of the apical and apical inferior zepeda. This represents ischemia -Currently chest pain-free -Is on aspirin, Plavix, metoprolol 12.5 twice daily -Continue telemetry monitoring, continue to monitor for chest pain -Agrees to coronary angiogram, however current laid there is no urgent need, and peripheral angiogram takes precedence -Coronary angiogram can be done on an emergent basis if required, however he can follow-up as outpatient Peripheral arterial disease: -As above New onset onset atrial fibrillation, rate controlled, continue metoprolol, start Eliquis 5 mg twice daily CHF without acute exacerbation hold Lasix, hold spironolactone, hold losartan Chronic hyponatremia Plan for today continue PT OT, continue medications, monitor creatinine, monitor urine output closely and hopefully discharge on Friday, monitor blood pressures Attestations Medical Necessity Statement*: Patient requires hospitalization for left lower extremity cellulitis, CKD, concerns for concerns-induced nephropathy, peripheral arterial disease Coding Level of Care Code Acute Front Line Supervisor for Chaitanya Parsons Diagnoses Diabetes mellitus with diabetic polyneuropathy E11.42; Z79.4 Diabetes mellitus type: type 2 Diabetes mellitus group home insulin use: with dermatology sales representative use 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
[2020-10-29 13:05] LABS: Vancomycin Trough 25.1 ug/mL (10-15)
[2020-10-29] MEDS: HYDROcodone-acetaminophen 7.5-325 mg Tablet 1 TAB PO ×3 (15:15→22:59)
[2020-10-29 16:33] LABS: Glucose Point of Care 83 mg/dL (70-110)
[2020-10-29 19:42] LABS: Anion Gap 15.3 (5-19); Blood Urea Nitrogen 30 mg/dL (8-23); Calcium 8.5 mg/dL (8.5-10.5); Carbon Dioxide 25 mmol/L (22-29); Chloride 101 mmol/L (98-107); Glucose 103 mg/dL (65-115); Osmolality Calculated 288 mOsm/kg (285-295); Potassium 5.3 mmol/L (3.5-5.1); Sodium 136 mmol/L (136-145)
--- NOTE | 2020-10-29 19:47 | PC.NURSE ---
Received orders from Dr. Zaman not to place meng if patient is able to urinate. Patients emptied urinal today while she was here. He reports that he has been able to urinate today. I educated him about the importance of accurate I&O's. He is aware that he needs to have us measure it now.
[2020-10-29 20:54] LABS: Glucose Point of Care 157 mg/dL (70-110)
[2020-10-29] MEDS: atorvastatin 40 mg Tablet PO (21:20)
--- NOTE | 2020-10-29 21:57 | PC.NURSE ---
Dressing change to bilateral heels completed per order.
[2020-10-30] VITALS (44 sets, daily range): BP systolic 98–129; BP diastolic 54–85; PULSE 0–113; RESP 1–25; TEMP 36.5–36.8; O2SAT 94–99
--- NOTE | 2020-10-30 02:10 | PC.NURSE ---
Addendum entered by Aleena Stweart RN 10/30/20 04:11: Dr. Walsh ordered to get straight cath. 225 ml of tea-colored urine returned with straight cath. Original Note: Patient has not voided all night. Bladder scan showed [address] Walsh notified. Patient states he does not feel like he needs to void.
[2020-10-30] MEDS: HYDROcodone-acetaminophen 7.5-325 mg Tablet 1 TAB PO ×3 (03:30→21:47)
[2020-10-30 06:06] LABS: Basophils # 0.1 10^3/uL (0.0-0.1); Basophils % 0.6 %; Eosinophils # 0.7 10^3/uL (0.0-0.8); Eosinophils % 8.7 %; Hematocrit 29.7 % (42.0-52.0); Hemoglobin 8.9 g/dL (11.7-16.6); Lymphocytes # 1.1 10^3/uL (0.8-4.8); Lymphocytes % 13.5 %; Mean Corpuscular Hemoglobin 28.8 pg (28.0-34.0); Mean Corpuscular Volume 96.1 fL (80-94); Mean Platelet Volume 11.4 fL (7.4-10.4); Monocytes # 0.6 10^3/uL (0.2-0.9); Monocytes % 7.8 %; Neutrophils # 5.65 10^3/uL (1.8-7.7); Neutrophils % 68.7 %; Nucleated Red Blood Cells % 0 %; Platelet Count 190 10^3/cmm (130-400); Red Blood Count 3.09 10^6/uL (4.1-5.3); Red Cell Distribution Width 19.3 % (12.1-15.1); White Blood Count 8.2 10^3/uL (4.0-10.0)
[2020-10-30 06:34] LABS: Alanine Aminotransferase 6 U/L (0-41); Alkaline Phosphatase 125 IU/L (40-130); Anion Gap 16.1 (5-19); Aspartate Amino Transferase 11 U/L (0-40); Blood Urea Nitrogen 36 mg/dL (8-23); Calcium 8.2 mg/dL (8.5-10.5); Carbon Dioxide 24 mmol/L (22-29); Chloride 102 mmol/L (98-107); Globulin 3.3 g/dL (1.3-4.6); Glucose 70 mg/dL (65-115); Magnesium 1.8 mg/dL (1.7-2.3); Osmolality Calculated 291 mOsm/kg (285-295); Phosphorus 4.8 mg/dL (2.5-4.5); Potassium 5.1 mmol/L (3.5-5.1); Sodium 137 mmol/L (136-145); Total Bilirubin 0.4 mg/dL (0.15-1.2); Total Protein 6.3 g/dL (6.6-8.7)
[2020-10-30 06:51] LABS: Glucose Point of Care 98 mg/dL (70-110)
[2020-10-30] MEDS: amoxicillin-clav 875-125 mg Tablet 1 TAB PO ×2 (08:27→18:38)
[2020-10-30] MEDS: clopidogrel 75 mg Tablet PO (08:27)
[2020-10-30] MEDS: fluconazole 100 mg Tablet PO (08:27)
[2020-10-30] MEDS: levothyroxine 75 mcg Tablet 150 MCG PO (08:27)
[2020-10-30] MEDS: pantoprazole DR 40 mg Tablet PO (08:27)
[2020-10-30] MEDS: metoprolol tartrate 25 mg Tablet 12.5 MG PO ×2 (08:27→21:48)
[2020-10-30] MEDS: sennosides-docusate Tablet 1 TAB PO (08:27)
[2020-10-30] MEDS: apixaban 5 mg Tablet PO (09:39)
[2020-10-30] MEDS: sodium hypochlorite 0.25% Btl 473 mL 1 APPLIC TOPICAL ×2 (09:39→21:49)
--- NOTE | 2020-10-30 09:49 | P.PN_ITS ---
Subjective Subjective: Interval history: Patient has developed contrast induced nephropathy post peripheral angiogram/intervention on Friday. Nephrology has been on board. Vitals/I&O/Wt Last Vital Signs Temp 97.7 F 10/30/20 07:18 Pulse 69 10/30/20 07:59 Resp 12 10/30/20 07:59 BP 98/59 10/30/20 07:18 Pulse Ox 99 10/30/20 07:59 10/29/20 10/30/20 10/30/20 22:59 06:59 14:59 Intake Total 1142.5 / 1622.5 Balance 1142.5 / 1622.5 Physical Exam Const: COMMON NORMALS: no acute distress and patient oriented x3 HENMT: COMMON NORMALS: normocephalic HEAD & SCALP: normocephalic Neck/C-Spine: COMMON NORMALS: no JVD Resp: COMMON NORMALS: normal respiratory effort, No retractions, No use of accessory muscles and clear to auscultation bilaterally AUSCULTATION: clear to auscultation bilaterally Cardio: COMMON NORMALS: no JVD, regular rate, regular rhythm, S1 normal heart sound present and S2 normal heart sound present RATE: regular rate RHYTHM: regular rhythm HEART SOUNDS: S1 normal heart sound present and S2 normal heart sound present GI: COMMON NORMALS: Normal to inspection, nondistended, normoactive bowel sounds present, Soft to palpation, non-tender, No hepatosplenomegaly present, no masses and no bruits PALPATION: Yes Soft to palpation and Yes No hepatospl enomegaly present Extremity: NARRATIVE EXTREMITY EXAM: Bilateral lower extremities wrapped Neuro: COMMON NORMALS: patient oriented x3 Psych: COMMON NORMALS: mental status grossly normal Data : 10/30/20 04:40 10/30/20 04:40 A&P Assessment and plan (1) Elevated troponin: Troponin elevation possibly secondary to type 2 [place] . On asprin and plavix. Stress test shows inferior wall infarct with some augustin-infarct ischemia and small area of ischemia of the apical wall. Patient is chest pain free at this time. As his renal function is abnormal, we prioritized the peripheral revascularization as he has osteomyelitis and non healing and would help with healing process.Given patient's renal dysfunction, no consideration for cardiac currently. May proceed with it in future. Status: Acute (2) Ischemic cardiomyopathy: Continue losartan. Will benefit from ICD/lifevest. Discussed with patient, he wants to hold off on further procedures Status: Chronic (3) ASHD (arteriosclerotic heart disease): Patient will need coronary angiogram at some point as stress test was abnormal. Patient had occasional chest discomfort. However because of elevated creatinine, his peripheral procedure was performed as a priority. We will discuss doing the coronary angiogram as outpatient once renal function normalizes Status: Chronic (4) Venous stasis ulcers of both lower extremities: Patient had a venous Doppler examination before he was found to have no evidence of DVT. Status: Chronic (5) Sepsis: Patient is diagnosed with a gram-negative septicemia. Antibiotic treatment as per the primary. May continue with aggressive management of the leg ulcers. His blood culture grew bacteroids fragilis, Proteus mirabilis and bacillus Status: Acute Qualifiers: Sepsis type: sepsis due to unspecified organism Sepsis acute organ dysfunction status: unspecified Qualified Code(s): A41.9 - Sepsis, unspecified organism (6) Type 2 diabetes mellitus: Aggressive management of the diabetes, as per the primary. Status: Chronic Qualifiers: Diabetes mellitus middle or intermediate school principal insulin use: with middle or intermediate school principal use Diabetes mellitus complication status: with kidney complications Diabetes mellitus complication detail: with chronic kidney disease Chronic kidney disease stage: stage 3 (moderate) Chronic kidney disease stage 3 subtype: stage 3b (GFR 30-44) Qualified Code(s): E11.22 - Type 2 diabetes mellitus with diabetic chronic kidney disease; N18.32 - Chronic kidney disease, stage 3b; Z79.4 - superintendent container terminal (current) use of insulin (7) HTN (hypertension): Currently he is normotensive Status: Chronic Qualifiers: Hypertension type: essential hypertension Qualified Code(s): I10 - Essential (primary) hypertension (8) Peripheral arterial disease: In view of the nonhealing ulcers, peripheral angiogram was performed that showed severe left Tibioperoneal trunk and anterior tibial artery stenosis. Undderwent successful revascularization with balloon angioplasty with excellent results. Patient has right sided severe disease that will be revascularized as a staged procedure. Status: Chronic (9) Bilateral leg edema: This could be multifactorial. Chronic systolic heart failure, chronic venous stasis, peripheral arterial disease, dependency, etc. are contributing factors. Patient may be carefully treated with diuretics. Continue managing the precipitating factors. Status: Acute (10) Critical lower limb ischemia: peripheral angiogram was performed that showed severe left Tibioperoneal trunk and anterior tibial artery stenosis. Underwent successful revascularization with balloon angioplasty with excellent results. Patient has r ight sided severe disease that will be revascularized as a staged procedure. He has developed contrast induced nephropathy IV fluids Plavix 75mg daily. Recommend eliquis 5mg BID for afib Status: Acute (11) New onset a-fib: Patient has new onset afib. Heart rate is controlled. Will recommend plavix and eliquis 5mg BID Status: Acute (12) Contrast dye induced nephropathy: Patient has baseline CKD and has developed worsening of renal function today likely secondary to Contrast induced nephropathy. Hold Lasix. Continue IV fluids at 75cc/hour. 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 Thank you for the opportunity to evaluate this patient and make these recommendations. Attestations Medical Necessity Statement*: Care expected to cross 2 midnights. Coding Level of Care Code Acute Box Strapper for Chg Fwd Diagnoses Elevated troponin R77.8 Ischemic cardiomyopathy I25.5 ASHD (arteriosclerotic heart disease) I25.10 Venous stasis ulcers of both lower extremities I83.019; I83.029; L97.919; L97.929 Sepsis A41.9 Sepsis type: sepsis due to unspecified organism Sepsis acute organ dysfunction status: unspecified Type 2 diabetes mellitus E11.22; N18.32; Z79.4 Diabetes mellitus half-way insulin use: with middle or intermediate school principal use Diabetes mellitus complication status: with kidney complications Diabetes mellitus complication detail: with chronic kidney disease Chronic kidney disease stage: stage 3 (moderate) Chronic kidney disease stage 3 subtype: stage 3b (GFR 30-44) HTN (hypertension) I10 Hypertension type: essential hypertension Peripheral arterial disease I73.9 Bilateral leg edema R60.0 Critical lower limb ischemia I70.229 New onset a-fib I48.91 Contrast dye induced nephropathy N14.1; T50.8X5A
--- NOTE | 2020-10-30 11:24 | PC.SOCIAL ---
*IMM UPDATE* Etiquette Coach gave patient IMM update. Provided patient with a copy of page 2 of IMM. 10/30/20 @ 1119. Initialed, dated, timed and placed in chart.
[2020-10-30 12:11] LABS: Glucose Point of Care 129 mg/dL (70-110)
--- NOTE | 2020-10-30 14:39 | P.CONIM_ITS ---
Providers/Reason For Consult Consulting Physican/Specialty*: Xiang Klein MD / telenephrology Reason for Consult*: MICHAEL on CKD Attending Physician: Coby Miner MD Primary Care Provider: Jose Manuel Mooney MD History of Present Illness History of Present Illness Rhett Cotto is a 79 year old male admitted on 10/17/20 w/ DM foot ulcer. He was treated w/ vanco and zosyn. On admission his cr was 1.6 mg/dl- CKD stgae 3b- his baseline from DM, age, RVD. Pt had heel debeidement by Dr. Mauri Perez on 10/20/20. He was diagnosed w/ gram neg bacteremia- bacteroides and proteus- etiology from heel. 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 Undderwent successful revascularization with balloon angioplasty with excellent results. Patient has right sided severe disease that will be revascularized as a staged procedure. Pt also developed a fib w/ RVR. Currently he is hemodynamically stable and comfortable in bed. Renal called as pt developed stage 3 oliguric MICHAEL. cr was 1.5 on 10/28/20, yesterday cr was 2.7 and 3.5 mg/dl Cr is now 3.9 mg/dl and pt is oliguric. renal called for consultation and management of MICHAEL/ IRON. Review of Systems General: Reports: 10 or more systems reviewed and unremarkable except in HPI and below Narrative: no weldon, sob, fevers, visual complaints, CP, diarrhea, abd pain. + palps, dec uop, legs are less painful- still red and swollen. Meds/Allergies Home Medications and Allergies Home Medications Medication Instructions Recorded Confirmed Last Taken Type furosemide 40 mg PO BID 30 Days #0 tab 04/09/20 10/17/20 10/17/20 Rx spironolactone 25 mg PO DAILY 08/28/20 10/17/20 10/17/20 History metformin 500 mg PO BID 09/22/20 10/17/20 10/17/20 History omeprazole 20 mg PO DAILY 28 Days cap 09/22/20 10/17/20 10/17/20 Rx hydrocodone-acetaminophen 1 tab PO Q6H PRN 10/17/20 10/17/20 Unknown History levothyroxine 150 mcg PO DAILY 10/17/20 10/17/20 Unknown History potassium chloride 20 meq PO BID 10/17/20 10/17/20 10/17/20 History amoxicillin-pot clavulanate 1 tab PO BID 34 Days #68 tab 10/28/20 Unknown Rx apixaban [Eliquis] 5 mg PO Q12H 30 Days #60 tab 10/28/20 Unknown Rx atorvastatin 40 mg PO BEDTIME 30 Days #30 tab 10/28/20 Unknown Rx clopidogrel 75 mg PO DAILY 30 Days #30 tab 10/28/20 Unknown Rx fluconazole 100 mg PO DAILY 8 Days #8 tab 10/28/20 Unknown Rx hydrocodone-acetaminophen 1 tab PO Q4H PRN 7 Days #42 tab 10/28/20 Unknown Rx insulin aspart U-100 [Novolog See Rx Instructions .ROUTE 10/28/20 Unknown Rx U-100 Insulin aspart] .COMPLEX #10 ml losartan 25 mg PO DAILY 30 Days #30 tab 10/28/20 Unknown Rx metoprolol tartrate 12.5 mg PO BID@0900,2100 30 Days 10/28/20 Unknown Rx #60 tab nitroglycerin 0.4 mg SUBLINGUAL Q5M PRN 30 Days 10/28/20 Unknown Rx #30 tab polyethylene glycol 3350 17 g PO DAILY 30 Days #30 ea 10/28/20 Unknown Rx vancomycin 1,000 mg IV Q24H 34 Days #10 ea 10/28/20 Unknown Rx Allergies Allergy/AdvReac Type Severity Reaction Status Date / Time metronidazole [From Flagyl] Allergy ALGY-Rash Verified 10/22/20 10:13 Current Medications Current Medications Generic Name Dose Route Start Last Admin Trade Name Freq PRN Reason Stop Dose Admin Acetaminophen 325 - 650 mg 10/18/20 01:32 10/22/20 11:36 Acetaminophen 325 Mg Tablet PO 650 mg Q4H PRN Administration MILD PAIN OR INCREASE TEMP Hydrocodone Bitart/Acetaminophen 1 tab 10/25/20 17:03 10/30/20 08:26 Hydrocodone-Acetaminophen 7.5-325 Mg Tablet PO 1 tab Q4H PRN Administration SEVERE PAIN Albuterol/Ipratropium 3 ml 10/18/20 01:31 10/28/20 08:57 Ipratropium-Albuterol 3 Ml Neb INHALATION 3 ml Q4H PRN Administration SHORTNESS OF BREATH Alprazolam 0.25 mg 10/27/20 17:42 10/28/20 20:33 Alprazolam 0.25 Mg Tablet PO 0.25 mg TID PRN Administration ANXIETY Amoxicillin/Clavulanate Potassium 1 tab 10/27/20 09:00 10/30/20 08:27 Amoxicillin-Clav 875-125 Mg Tablet PO 1 tab BID NICHOLAS Administration Protocol Atorvastatin Calcium 40 mg 10/21/20 21:00 10/29/20 21:20 Atorvastatin 40 Mg Tablet PO 40 mg BEDTIME NICHOLAS Administration Clopidogrel Bisulfate 75 mg 10/23/20 09:00 10/30/20 08:27 Clopidogrel 75 Mg Tablet PO 75 mg DAILY NICHOLAS Administration Guaifenesin 600 mg 10/22/20 17:50 10/23/20 17:34 Guaifenesin 600 Mg Tablet PO 600 mg Q6H PRN Administration COUGH Vancomycin HCl 1,000 mg/ 250 mls @ 250 mls/hr 10/26/20 13:00 10/28/20 15:40 Sodium Chloride IV Infused Q24H NICHOLAS Infusion Insulin Aspart 0 unit 10/18/20 08:00 10/30/20 12:20 Insulin Aspart 100 Unit/1 Ml SUBCUT Not Given WM&BEDTIME NICHOLAS Protocol Levothyroxine Sodium 150 mcg 10/18/20 09:00 10/30/20 08:27 Levothyroxine 75 Mcg Tablet PO 150 mcg DAILY NICHOLAS Administration Metoprolol Tartrate 12.5 mg 10/21/20 21:00 10/30/20 08:27 Metoprolol Tartrate 25 Mg Tablet PO 12.5 mg BID@0900,2100 NICHOLAS Administration Ondansetron HCl 4 mg 10/23/20 07:12 10/23/20 12:33 Ondansetron 2 Mg/Ml Sdv 2 Ml IVP 4 mg Q2M PRN Administration NAUSEA Pantoprazole Sodium 40 mg 10/18/20 09:00 10/30/20 08:[address] 40 Mg Tablet PO 40 mg DAILY NICHOLAS Administration Polyethylene Glycol 17 gm 10/18/20 09:00 10/30/20 08:33 Polyethylene Glycol 3350 Pkt 17 Gm PO Not Given DAILY NICHOLAS Senna/Docusate Sodium 1 tab 10/18/20 09:00 10/30/20 08:27 Sennosides-Docusate Tablet PO 1 tab DAILY NICHOLAS Administration Sodium Hypochlorite 1 applic 10/28/20 21:00 10/30/20 09:39 Sodium Hypochlorite 0.25% Btl 473 Ml TOPICAL 1 applic 0900,2100 NICHOLAS Administration PFSH Acute PFSH: Medical History (Updated 10/30/20 @ 09:46 by Lenin Shaffer M.D) Anasarca ASHD (arteriosclerotic heart disease) Cardiomyopathy CHF (congestive heart failure) Cleft palate and cleft lip Diabetes Dyslipidemia HTN (hypertension) Myocardial infarction Preoperative clearance Surgical History Cleft palate Surgically repaired History of tonsillectomy Leg fracture, left Lower leg fractures repaired with rods and bone grafts S/P PTCA (percutaneous transluminal coronary angioplasty) Family History Other Diabetes Social History Smoking and tobacco status: never smoked Alcohol intake: current Alcohol intake frequency: holidays/special occasions only Household members: spouse Marital status: Vitals/I&O/Wt Last Vital Signs Temp 98.1 F 10/30/20 11:19 Pulse 57 L 10/30/20 11:19 Resp 12 10/30/20 11:19 BP 106/64 10/30/20 11:19 Pulse Ox 98 10/30/20 11:19 10/29/20 10/30/20 10/30/20 22:59 06:59 14:59 Intake Total 1142.5 / 1622.5 1320 / 1320 Balance 1142.5 / 1622.5 1320 / 1320 Physical Exam Narrative: EXAM NARRATIVE: Elderly man comfortable in bed, NARd VS noted heent- nc/at, eomi, anicteric neck- supple lungs dull bases w/ some crackles heart- irreg irreg, +ION abd soft, nt, nd, +BS ext b/l edema, red areas on legs. Rt warmer than left feet and ankles bandaged poor distal pulses A&P Additional A&P Information 79 yr old man 1. DM foot ulcers/ cellulitis/ OM- s/p debridement and Lower ext angiogram on 10/27/20 -check vanco level -dose all abx for GFR <10 - 6 weeks of abx from 10/20/20 gram neg bacteremia and staph 2. CKD stage 3- b/l cr 1.5- likely DM, HTN -u/a 4..11- no significant proteinuria- argues against 3. MICHAEL- likely IRON- had significant dye load on 10/27/20 for LE angiogram and angioplasty -check ua, urine lytes and renal us -check ck -low k diet 3. CAD, + stress test- for cardiac cath in future, when kidney fxn stablizes 4. a fib- renal dose eliquis 5. anemia- avoid iv iron w/ bacteremia. may benefit from BORIS Consult Attestations Medical Necessity Statement: PVD, DM, MICHAEL on CKD stage 3 b Time Spent in Patient Care: Greater than 35 minutes Coding Level of Care Code Acute Cassandra Architect for Chaitanya Parsons
--- NOTE | 2020-10-30 15:10 | US_ITS ---
WS: [id number] RENAL ULTRASOUND HISTORY: esequiel COMPARISON: None available. TECHNIQUE: 2-D and color Doppler imaging of the kidney submitted. Right kidney: 11.0 cm x 6.6 cm x 7.6 cm. Normal size kidney. Several simple cysts associated with the kidney. Largest simple cyst from the mid kidney measures 6.2 x 4.7 x 7.1 cm. Otherwise echogenicity of the RIGHT kidney is increased. No hydr onephrosis. Left kidney: 10.0 cm x 5.1 cm x 6.1 cm. Poorly visualized kidney. No hydronephrosis identified. Aorta: Normal. Urinary Bladder: Minimally distended. Poorly visualized. US/US renal BI* [id number] IMPRESSION: 1. No hydronephrosis. 2. Increased echogenicity within each kidney suggesting mild chronic medical r enal disease. LEFT kidney is poorly visualized. 3. Large RIGHT renal cysts.
--- NOTE | 2020-10-30 15:29 | PC.NURSE ---
patient has no voided this shift Dr sandhu notified during rounding of no urine US studies ordered on US on 55 ml if urine in bladder
[2020-10-30 15:39] LABS: Hepatitis C Virus Antibody Non-Reactive (Nonreactive)
[2020-10-30 16:46] LABS: Glucose Point of Care 135 mg/dL (70-110)
--- NOTE | 2020-10-30 17:27 | P.PN_ITS ---
Subjective Subjective: Interval history: Patient with progressively worsening renal dysfunction and decreasing urine output. He did receive IV contrast for full arteriogram on October 27. Creatinine prior to procedure was 1.5. Case was discussed with nephrology today who agreed to see Mr. Cotto in consultation. Medications were adjusted to be more renally dosed. Blood pressure medications and antibiotics were also held due to soft blood pressures and worsening renal function. Vitals/I&O/Wt Last Vital Signs Temp 97.8 F 10/30/20 15:14 Pulse 63 10/30/20 15:14 Resp 19 H 10/30/20 15:14 BP 126/85 10/30/20 15:14 Pulse Ox 97 10/30/20 15:14 10/30/20 10/30/20 10/30/20 06:59 14:59 22:59 Intake Total 1320 / 1320 Balance 1320 / 1320 Physical Exam Narrative: EXAM NARRATIVE: Awake and alert slurred but appears to be more chronic rather than acute from his demeanor Lungs are clear to auscultation bilaterally Irregular rhythm Abdomen soft Both lower extremities wrapped, dressed and in boots, 1+ pitting edema at visible tibia Moves all extremities Data : 10/30/20 04:40 10/30/20 04:40 A&P Assessment and plan (1) Contrast dye induced nephropathy: Status: Acute (2) Critical lower limb ischemia: Status post peripheral arteriogram with intervention by Dr. Shaffer. Has known peripheral artery disease chronically. Status: Acute (3) Sepsis: With bacteremia involving bacillus species, Bacteroides fragilis as well as Proteus mirabilis. Most likely source is foot wounds given cultures from wound collection demonstrating Proteus from 2 separate sources as well as other organisms to include enteric coccus faecalis and MRSA. 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: Status: Chronic (6) Elevated troponin: Status: Acute (7) Yeast UTI: Status: Acute (8) Ischemic cardiomyopathy: Status: Chronic (9) Type 2 diabetes mellitus: Status: Chronic 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: 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 Diabetes mellitus complication status: with kidney complications Diabetes mellitus complication detail: with chronic kidney disease Chronic kidney disease stage: stage 3 (moderate) Chronic kidney disease stage 3 subtype: stage 3b (GFR 30-44) Qualified Code(s): E11.22 - Type 2 diabetes mellitus with diabetic chronic kidney disease; N18.32 - Chronic kidney disease, stage 3b; Z79.4 - group home (current) use of insulin (10) HTN (hypertension): Status: Chronic Qualifiers: Hypertension type: essential hypertension Qualified Code(s): I10 - Essential (primary) hypertension Additional A&P Information Nephrology consultation greatly appreciated Medications have been adjusted for renal dosing Possibility of Bustos catheter but he states chronically it has been difficult for him to have anything to do with one. He is able to urinate. Explained that there may be times we need to check to see if he has any urine in his bladder and he is okay with this. I also reviewed with him that I felt this was likely contrast-induced nephropathy which can happen after arteriograms. In his case it had to be done to protect his limb. He understands this. Reviewed very briefly that situation such as this can lead to. Explained that we would be following renal function closely and determine further plans of care. Intention had originally been for him to go to facility today but with the worsening renal function and decreasing urine output I have stopped this presently Remains off of several antihypertensives and vancomycin currently due to worsening renal function and lower blood pressures Recheck vancomycin level in the morning before redosing >> on this medication for osteomyelitis. Need to verify diagnosis of osteomyelitis and discussion with Dr. Perez as am not seeing bone cultures or definitive imaging done here demonstrating such. I do see in Dr. Perez's notes that there was some devitalized tissue down to the periosteum however. Continue Augmentin for wounds Bladder scan and straight cath as needed I have discontinued fluconazole as patient has received an appropriate course of treatment Was started on Eliquis for atrial fibrillation, dosing adjusted renally Continue beta-blockade, statin, levothyroxine, Plavix Monitor volume status with hydration ARB currently held due to renal dysfunction On PPI Has pain medications Eliquis provides DVT prophylaxis PT and OT Supportive care otherwise Plans were discussed with patient and he was given opportunity to ask questions Full code Attestations Medical Necessity Statement*: Requires ongoing inpatient stay at this time due to acute kidney injury secondary to contrast nephropathy. At high risk of rapid clinical decline comorbid conditions should he have progressing renal dysfunction and decreasing urine output. With adjustment and multiple medications related to this. Appropriate monitoring and care cannot be achieved currently at a lower level due to need for frequent labs, IV fluids and close clinical monitoring with the ability to rapidly intervene. Plans are as noted above. 

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
[2020-10-30 20:59] LABS: Glucose Point of Care 180 mg/dL (70-110)
[2020-10-30] MEDS: atorvastatin 40 mg Tablet PO (21:48)
[2020-10-30] MEDS: sodium chloride 0.9% 1,000 ML 50 ML IV (21:49)
[2020-10-31] VITALS (19 sets, daily range): BP systolic 108–154; BP diastolic 67–117; PULSE 49–70; RESP 5–21; TEMP 36.4–36.8; O2SAT 90–97
--- NOTE | 2020-10-31 02:26 | PC.NURSE ---
pt having trouble voiding tonight, bladder scanned to reveal >50mls in bladder although patient feels the need to void. Pt dribbles what looks to be bloody urine but very small amount. Not enough to measure. After two attempts to void it was suggested to patient for a straight cath to which he declined adamantly. Pt isnt experiencing any pain or discomfort and no palpable superpubic distention noted. Will scan bladder again if needed, and attempt to straight cath patient if agreeable.
[2020-10-31 04:45] LABS: Basophils % 0.5 %; Eosinophils # 0.5 10^3/uL (0.0-0.8); Eosinophils % 6.9 %; Hematocrit 29.4 % (42.0-52.0); Lymphocytes # 1.2 10^3/uL (0.8-4.8); Lymphocytes % 15.2 %; Mean Corpuscular HGB Conc 30.6 g/dL (30.0-36.0); Mean Corpuscular Hemoglobin 28.8 pg (28.0-34.0); Mean Corpuscular Volume 94.2 fL (80-94); Mean Platelet Volume 11.1 fL (7.4-10.4); Monocytes # 0.7 10^3/uL (0.2-0.9); Monocytes % 8.7 %; Neutrophils # 5.17 10^3/uL (1.8-7.7); Neutrophils % 68.4 %; Nucleated Red Blood Cells % 0 %; Platelet Count 192 10^3/cmm (130-400); Red Blood Count 3.12 10^6/uL (4.1-5.3); Red Cell Distribution Width 19.5 % (12.1-15.1); White Blood Count 7.6 10^3/uL (4.0-10.0)
[2020-10-31 05:23] LABS: 25 Hydroxy Vitamin D 23 ng/mL (30-100); Alanine Aminotransferase < 5 U/L (0-41); Albumin Level 2.8 g/dL (3.5-5.2); Alkaline Phosphatase 120 IU/L (40-130); Anion Gap 13.2 (5-19); Aspartate Amino Transferase 11 U/L (0-40); Blood Urea Nitrogen 40 mg/dL (8-23); Calcium 8.3 mg/dL (8.5-10.5); Carbon Dioxide 24 mmol/L (22-29); Chloride 102 mmol/L (98-107); Ferritin 233 ng/mL (30-400); Globulin 3.2 g/dL (1.3-4.6); Glucose 85 mg/dL (65-115); Iron 40 ug/dL (59-158); Magnesium 1.8 mg/dL (1.7-2.3); Osmolality Calculated 287 mOsm/kg (285-295); Percent Saturation 26.6 % (20-50); Phosphorus 5.8 mg/dL (2.5-4.5); Potassium 5.2 mmol/L (3.5-5.1); Sodium 134 mmol/L (136-145); Total Bilirubin 0.5 mg/dL (0.15-1.2); Total Iron Binding Capacity 150 mcg/dl; Unsaturated Iron Binding 110 ug/dL (112-347); Uric Acid 11.7 mg/dL (3.4-7.0)
[2020-10-31 05:27] LABS: Calcium 8.1 mg/dL (8.5-10.5); Parathyroid Hormone 158.3 pg/mL (15-65); Vancomycin Random 19.6 ug/mL (20.0-40.0)
[2020-10-31 06:54] LABS: Bilirubin Urine 1+ (Negative); Blood Urine 3+ (Negative); Glucose Urine UA Norm (Normal); Ketones Urine 1+ (Negative); Leukocyte Esterase Urine 2+ (Negative); Protein Urine 2+ (Negative); Urine Appearance Cloudy (CLEAR); Urine Color Dark Yellow (Yellow); Urobilinogen Urine 4 mg/dL (Negative); pH Urine 6.5 (5-7)
[2020-10-31 06:59] LABS: Potassium, Radom Urine 72 mmol/L
[2020-10-31 07:01] LABS: Glucose Point of Care 96 mg/dL (70-110)
[2020-10-31 07:08] LABS: Add Urine Culture? Yes; Bacteria Urine 1+ /hpf; Nitrate Urine Positive (Negative); RBC Urine >100 /hpf (0-2); Squamous Epithelial Cell Urine 0-4 /hpf (0-5); WBC Urine 15-25 /hpf (0-5)
[2020-10-31 07:09] LABS: Urine Random Chloride < 10 mmol/L; Urine Random Sodium < 10 mmol/L
--- NOTE | 2020-10-31 07:32 | P.PN_ITS ---
Subjective Subjective: Interval history: feels better. states he started to urinate. no n/v/f/c/weldon/d/ sob Medications: Reviewed: Yes Medication Review Details: Current Medications Acetaminophen (Acetaminophen 325 Mg Tablet) 325 - 650 mg PO Q4H PRN PRN Reason: MILD PAIN OR INCREASE TEMP Last Admin: 10/22/20 11:36 Dose: 650 mg Documented by: Hydrocodone Bitart/Acetaminophen (Hydrocodone-Acetaminophen 7.5-325 Mg Tablet) 1 tab PO Q4H PRN PRN Reason: SEVERE PAIN Last Admin: 10/30/20 21:47 Dose: 1 tab Documented by: Albuterol/Ipratropium (Ipratropium-Albuterol 3 Ml Neb) 3 ml INHALATION Q4H PRN PRN Reason: SHORTNESS OF BREATH Last Admin: 10/28/20 08:57 Dose: 3 ml Documented by: Alprazolam (Alprazolam 0.25 Mg Tablet) 0.25 mg PO TID PRN PRN Reason: ANXIETY Last Admin: 10/28/20 20:33 Dose: 0.25 mg Documented by: Amoxicillin/Clavulanate Potassium (Amoxicillin-Clav 875-125 Mg Tablet) 1 tab PO BID NICHOLAS; Protocol Last Admin: 10/30/20 18:38 Dose: 1 tab Documented by: Atorvastatin Calcium (Atorvastatin 40 Mg Tablet) 40 mg PO BEDTIME NICHOLAS Last Admin: 10/30/20 21:48 Dose: 40 mg Documented by: Atropine Sulfate (Atropine 1 Mg/Ml Sdv 1 Ml) 0.5 mg IVP PRN PRN PRN Reason: Symptomatic bradycardia Clopidogrel Bisulfate (Clopidogrel 75 Mg Tablet) 75 mg PO DAILY [facility] Last Admin: 10/30/20 08:27 Dose: 75 mg Documented by: Dextrose (Dextrose 50% Syringe 50 Ml) 25 ml IVP ONCE PRN; Protocol PRN Reason: hypoglycemia protocol Dextrose (Dextrose 50% Syringe 50 Ml) 50 ml IVP PRN PRN; Protocol PRN Reason: hypoglycemia protocol Glucagon (Glucagon 1 Mg/Ml Inj 1 Ml) 1 mg IM ONCE PRN; Protocol PRN Reason: Adult Acute Hypoglycemia Prot. Guaifenesin (Guaifenesin 600 Mg Tablet) 600 mg PO Q6H PRN PRN Reason: COUGH Last Admin: 10/23/20 17:34 Dose: 600 mg Documented by: Dextrose (D5w) 500 mls @ 100 mls/hr IV ONCE PRN; Protocol PRN Reason: Adult Acute Hypoglycemia Prot Vancomycin HCl 1,000 mg/ (Sodium Chloride) 250 mls @ 250 mls/hr IV Q24H [facility] Last Infusion: 10/28/20 15:40 Dose: Infused Documented by: Sodium Chloride (Sodium Chloride 0.9%) 1,000 mls @ 50 mls/hr IV .Q20H [facility] Last Admin: 10/30/20 21:49 Dose: 50 mls/hr Documented by: Insulin Aspart (Insulin Aspart 100 Unit/1 Ml) 0 unit SUBCUT WM&BEDTIME [facility]; Protocol Last Admin: 10/30/20 21:48 Dose: 4 unit Documented by: Levothyroxine Sodium (Levothyroxine 75 Mcg Tablet) 150 mcg PO DAILY [facility] Last Admin: 10/30/20 08:27 Dose: 150 mcg Documented by: Magnesium Hydroxide (Magnesium Hydroxide 30 Ml Udc) 30 ml PO DAILY PRN PRN Reason: CONSTIPATION Metoprolol Tartrate (Metoprolol Tartrate 25 Mg Tablet) 12.5 mg PO BID@0900,2100 [facility] Last Admin: 10/30/20 21:48 Dose: 12.5 mg Documented by: Naloxone HCl (Naloxone 0.4 Mg/Ml Sdv) 0.1 mg IVP Q2M PRN PRN Reason: RESPIRATORY RATE < 8/MIN Nitroglycerin (Nitroglycerin 0.4 Mg Sublingual Tablet) 0.4 mg SUBLINGUAL Q5M PRN PRN Reason: CHEST PAIN Pantoprazole Sodium (Pantoprazole Dr 40 Mg Tablet) 40 mg PO DAILY [facility] Last Admin: 10/30/20 08:27 Dose: 40 mg Documented by: Polyethylene Glycol (Polyethylene Glycol 3350 Pkt 17 Gm) 17 gm PO DAILY [facility] Last Admin: 10/30/20 08:33 Dose: Not Given Documented by: Senna/Docusate Sodium (Sennosides-Docusate Tablet) 1 tab PO DAILY [facility] Last Admin: 10/30/20 08:27 Dose: 1 tab Documented by: Sodium Hypochlorite (Sodium Hypochlorite 0.25% Btl 473 Ml) 1 applic TOPICAL 0900,2100 [facility] Last Admin: 10/30/20 21:49 Dose: 1 applic Documented by: Vitals/I&O/Wt Last Vital Signs Temp 98.3 F 10/31/20 00:00 Pulse 54 L 10/31/20 06:00 Resp 16 10/31/20 04:30 BP 129/71 10/31/20 04:32 Pulse Ox 90 10/31/20 00:00 10/30/20 10/31/20 10/31/20 22:59 06:59 14:59 Intake Total 120 / 1440 150 / 1590 Output Total 0 / 0 Balance 120 / 1440 150 / 1590 Physical Exam Narrative: EXAM NARRATIVE: Elderly man comfortable in bed, NARD VS noted heent- nc/at, eomi, anicteric neck- supple lungs dull bases w/ some crackles heart- irreg irreg, +ION abd soft, nt, nd, +BS ext b/l edema, red areas on legs. Rt warmer than left feet and ankles bandaged poor distal pulses Data : 10/31/20 04:30 10/31/20 04:30 A&P Additional A&P Information 79 yr old man 1. DM foot ulcers/ cellulitis/ OM- s/p debridement and Lower ext angiogram on 10/27/20 -check vanco level= 19.6- can redose tomorrow -dose all abx for GFR <10 - 6 weeks of abx from 10/20/20 gram neg bacteremia and staph -hyperphosphatemia- start sevelamer 2. CKD stage 3- b/l cr 1.5- likely DM, HTN -u/a 10/29/20- no significant proteinuria- argues against DM nephropathy 3. MICHAEL- likely IRON- had significant dye load on 10/27/20 for LE angiogram and angioplasty - ua noted- Q UTI- f/u cx. - low ur na- c/w prerenal from inravascular volume depletion or from CHF -as swollen and hypoxic- will hold ns ivf. consider giving a dose of lasix as per cardiology -monitor PVR BID -check ck -low k diet 3. CAD, + stress test- for cardiac cath in future, when kidney fxn stablizes 4. a fib- renal dose eliquis 5. anemia- avoid iv iron w/ bacteremia. may benefit from BORIS -iron sat 26%. ferritin 233 6. uric acid 11.7- give allopurinol 100 mgm daily 7. replace vit d- level is 23 -pth 158- repeat after replacing vit d seen w/ RN. discussed case in detail Attestations Medical Necessity Statement*: cellulitis, PVD, MICHAEL on CKD stage 3b Time Spent in Patient Care: 16 - 35 minutes Coding Level of Care Code Acute Waste Oil Pumper for Chaitanya Parsons
--- NOTE | 2020-10-31 08:38 | PM.PN ---
Subjective Subjective: Interval history: Patient is doing well.Creatinine is still elevated and is 4. Vitals/I&O/Wt Last Vital Signs Temp 98.3 F 10/31/20 00:00 Pulse 54 L 10/31/20 06:00 Resp 16 10/31/20 04:30 BP 129/71 10/31/20 04:32 Pulse Ox 90 10/31/20 00:00 10/30/20 10/31/20 10/31/20 22:59 06:59 14:59 Intake Total 120 / 1440 150 / 1590 Output Total 0 / 0 Balance 120 / 1440 150 / 1590 Physical Exam Const: COMMON NORMALS: no acute distress and patient oriented x3 HENMT: COMMON NORMALS: normocephalic HEAD & SCALP: normocephalic Neck/C-Spine: COMMON NORMALS: no JVD Resp: COMMON NORMALS: normal respiratory effort, No retractions, No use of accessory muscles and clear to auscultation bilaterally AUSCULTATION: clear to auscultation bilaterally Cardio: COMMON NORMALS: no JVD, regular rate, regular rhythm, S1 normal heart sound present and S2 normal heart sound present RATE: regular rate RHYTHM: regular rhythm HEART SOUNDS: S1 normal heart sound present and S2 normal heart sound present GI: COMMON NORMALS: Normal to inspection, nondistended, normoactive bowel sounds present, Soft to palpation, non-tender, No hepatosplenomegaly present, no masses and no bruits PALPATION: Yes Soft to palpation and Yes No hepatosplenomegaly present Extremity: NARRATIVE EXTREMITY EXAM: Bilateral lower extremities wrapped Neuro: COMMON NORMALS: patient oriented x3 Psych: COMMON NORMALS: mental status grossly normal Data : 11/02/20 04:05 11/02/20 04:05 A&P Assessment and plan (1) Elevated troponin: Troponin elevation possibly secondary to type 2 OR . On asprin and plavix. Stress test shows inferior wall infarct with some augustin-infarct ischemia and small area of ischemia of the apical wall. Patient is chest pain free at this time. As his renal function is abnormal, we prioritized the peripheral revascularization as he has osteomyelitis and non healing and would help with healing process.Given patient's renal dysfunction, no consideration for cardiac currently. May proceed with it in future. Status: Resolved (2) Ischemic cardiomyopathy: Continue losartan. Will benefit from ICD/lifevest. Discussed with patient, he wants to hold off on further procedures Status: Chronic (3) ASHD (arteriosclerotic heart disease): Patient will need coronary angiogram at some point as stress test was abnormal. Patient had occasional chest discomfort. However because of elevated creatinine, his peripheral procedure was performed as a priority. We will discuss doing the coronary angiogram as outpatient once renal function normalizes Status: Chronic (4) Venous stasis ulcers of both lower extremities: Patient had a venous Doppler examination before he was found to have no evidence of DVT. Status: Chronic (5) Sepsis: Patient is diagnosed with a gram-negative septicemia. Antibiotic treatment as per the primary. May continue with aggressive management of the leg ulcers. His blood culture grew bacteroids fragilis, Proteus mirabilis and bacillus Status: Resolved Qualifiers: Sepsis type: sepsis due to unspecified organism Sepsis acute organ dysfunction status: unspecified Qualified Code(s): A41.9 - Sepsis, unspecified organism (6) Type 2 diabetes mellitus: Aggressive management of the diabetes, as per the primary. Status: Chronic Qualifiers: Diabetes mellitus intermediate designer insulin use: with intermediate designer use Diabetes mellitus complication status: with kidney complications Diabetes mellitus complication detail: with chronic kidney disease Chronic kidney disease stage: stage 3 (moderate) Chronic kidney disease stage 3 subtype: stage 3b (GFR 30-44) Qualified Code(s): E11.22 - Type 2 diabetes mellitus with diabetic chronic kidney disease; N18.32 - Chronic kidney disease, stage 3b; Z79.4 - remote computer terminal operator (current) use of insulin (7) HTN (hypertension): Currently he is normotensive Status: Chronic Qualifiers: Hypertension type: essential hypertension Qualified Code(s): I10 - Essential (primary) hypertension (8) Peripheral arterial disease: In view of the nonhealing ulcers, peripheral angiogram was performed that showed severe left Tibioperoneal trunk and anterior tibial artery stenosis. Underwent successful revascularization with balloon angioplasty with excellent results. Patient has right sided severe disease that will be revascularized as a staged procedure. Status: Chronic (9) Bilateral leg edema: This could be multifactorial. Chronic systolic heart failure, chronic venous stasis, peripheral arterial disease, dependency, etc. are contributing factors. Patient may be carefully treated with diuretics. Continue managing the precipitating factors. Status: Resolved (10) Critical lower limb ischemia: peripheral angiogram was performed that showed severe left Tibioperoneal trunk and anterior tibial artery stenosis. Underwent successful revascularization with balloon angioplasty with excellent results. Patient has right sided severe disease that will be revascularized as a staged procedure. He has developed contrast induced nephropathy IV fluids Plavix 75mg daily. Recommend eliquis 5mg BID for afib Status: Resolved (11) New onset a-fib: Patient has new onset afib. Heart rate is controlled. Will recommend plavix and eliquis 5mg BID Status: Resolved (12) Contrast dye induced nephropathy: Patient has baseline CKD and has developed worsening of renal function today likely secondary to Contrast induced nephropathy. Hold Lasix. Continue IV fluids at 75cc/hour. Nephrology on board. 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 Thank you for the opportunity to evaluate this patient and make these recommendations. Attestations Medical Necessity Statement*: Care expected to cross 2 midnights. Coding Level of Care Code Acute Bridge Crane Operator for [facility] Diagnoses Elevated troponin R77.8 Ischemic cardiomyopathy I25.5 ASHD (arteriosclerotic heart disease) I25.10 Venous stasis ulcers of both lower extremities I83.019; I83.029; L97.919; L97.929 Sepsis A41.9 Sepsis type: sepsis due to unspecified organism Sepsis acute organ dysfunction status: unspecified Type 2 diabetes mellitus E11.22; N18.32; Z79.4 Diabetes mellitus intermediate designer insulin use: with intermediate designer use Diabetes mellitus complication status: with kidney complications Diabetes mellitus complication detail: with chronic kidney disease Chronic kidney disease stage: stage 3 (moderate) Chronic kidney disease stage 3 subtype: stage 3b (GFR 30-44) HTN (hypertension) I10 Hypertension type: essential hypertension Peripheral arterial disease I73.9 Bilateral leg edema R60.0 Critical lower limb ischemia I70.229 New onset a-fib I48.91 Contrast dye induced nephropathy N14.1; T50.8X5A
[2020-10-31] MEDS: ergocalciferol (vitamin D2) 50,000 Unit Capsule 50000 UNIT PO (08:45)
[2020-10-31] MEDS: clopidogrel 75 mg Tablet PO (08:45)
[2020-10-31] MEDS: allopurinol 100 mg Tablet PO (08:45)
[2020-10-31] MEDS: pantoprazole DR 40 mg Tablet PO (08:46)
[2020-10-31] MEDS: levothyroxine 75 mcg Tablet 150 MCG PO (08:47)
[2020-10-31] MEDS: amoxicillin-clav 875-125 mg Tablet 1 TAB PO ×2 (09:00→17:35)
--- NOTE | 2020-10-31 09:17 | PC.NURSE ---
Spoke with Dr. Miner regarding patients HR. It has been in the low 50's to 60's. Received orders to hold morning dose of metoprolol 12.5 and reevaluate for the next dose.
[2020-10-31] MEDS: sodium hypochlorite 0.25% Btl 473 mL 1 APPLIC TOPICAL ×2 (10:30→21:03)
[2020-10-31 12:00] LABS: Glucose Point of Care 116 mg/dL (70-110)
--- NOTE | 2020-10-31 12:43 | PM.PN ---
Subjective Subjective: Interval history: Seen bedside this morning is at the cardiac stepdown unit denies any complaints. His Vivi is bedside. Denies any pain in his feet. Vitals/I&O/Wt Last Vital Signs Temp 97.6 F 10/31/20 11:35 Pulse 64 10/31/20 11:35 Resp 16 10/31/20 11:35 BP 126/87 10/31/20 11:35 Pulse Ox 96 10/31/20 11:35 10/30/20 10/31/20 10/31/20 22:59 06:59 14:59 Intake Total 120 / 1440 150 / 1590 934.167 / 934.167 Output Total 0 / 0 175 / 175 Balance 120 / 1440 150 / 1590 759.167 / 759.167 Physical Exam Narrative: EXAM NARRATIVE: Patient is alert and oriented ?3 and in no acute distress. The following is a focused bilateral lower extremity exam. VASCULAR: Dorsalis pedis palpable posterior tibial arteries palpable. Capillary refill time less than 5 seconds to the distal hallux bilaterally. Calf is supple and nontender proximally and distally. Pitting edema to lower extremities left greater than right. Diminished pedal hair growth bilaterally. NEUROLOGICAL: Protective sensation intact 0/10 sites, tested with Gaston Denise monofilament to bilateral feet. DERMATOLOGICAL: Venous stasis ulcerations resolving bilateral legs limited to breakdown of skin. Cellulitis to the distal one third of the left leg source is from the left heel improving. Increased granulation tissue without erythema or purulence at the right heel wound 95% granulation tissue 5% fibrotic. Left heel wound exposed bone, no purulent drainage improved erythema. Left posterior heel wound 6 cm x 5 cm x 1.5 cm 50% granular 50% fibrotic. Healthy granular wound to the right plantar heel improving with epithelialized margin no surrounding erythema, warmth or drainage measures 2 cm x 1.8 cm x 0.2 cm. MUSCULOSKELETAL: Tenderness at left heel. Hammertoe deformities 2 through 5 bilaterally are reducible. Ankle joint dorsiflexion is to neutral. No pain with posterior calf squeeze bilaterally. Data : 10/31/20 04:30 10/31/20 04:30 A&P Assessment and plan (1) Peripheral arterial disease: Status: Chronic (2) Diabetes mellitus with diabetic polyneuropathy: Status: Chronic Qualifiers: Diabetes mellitus type: type 2 Diabetes mellitus terminal operations manager insulin use: with terminal operations manager use Qualified Code(s): E11.42 - Type 2 diabetes mellitus with diabetic polyneuropathy; Z79.4 - longterm (current) use of insulin (3) Non-pressure chronic ulcer of other part of right foot with necrosis of bone: Status: Acute -Incision and debridement left heel with bone biopsy of left calcaneus performed 10/20/20 -Will need to offload bilateral heels at all times while at rest during this hospitalization as well as at discharge/transfer. PODUS boots will need to be utilized -Currently receiving empiric IV antibiotics, bone culture pending, growing staph, proteus and enterococcus -Quarter percent Dakin solution wet to dry dressing change 3 times daily left heel wound during this hospitalization. -Silver alginate to right heel wound once daily dressing change. -Planning on transfer to shelter facility in [place] will need wound care referral on discharge/transfer -Will need antibiotic treatment for left calcaneal osteomyelitis No plans for further surgical debridement during this hospitalization, wound is stable at this point would benefit from wound care referral on transfer, plans for treatment of left calcaneus osteomyelitis with long-term IV antibiotics. Okay for discharge/transfer from podiatry standpoint. Dr. Perez Cell phone [phone] Attestations Medical Necessity Statement*: Osteomyelitis Coding Level of Care Code Acute Business Services Intern for [facility] Diagnoses Peripheral arterial disease I73.9 Diabetes mellitus with diabetic polyneuropathy E11.42; Z79.4 Diabetes mellitus type: type 2 Diabetes mellitus terminal operations manager insulin use: with care home use Non-pressure chronic ulcer of other part of right foot with necrosis of bone L97.514
[2020-10-31 16:49] LABS: Glucose Point of Care 122 mg/dL (70-110)
[2020-10-31] MEDS: HYDROcodone-acetaminophen 7.5-325 mg Tablet 1 TAB PO ×2 (17:35→21:49)
--- NOTE | 2020-10-31 19:17 | PM.PN ---
Subjective Subjective: Interval history: Increased urine output noted some today. No complaints of shortness of breath. Has had some oozing from the area of his PICC line in the right upper extremity. Nursing indicates that he has been picking at the dressing a little bit as well. Vitals/I&O/Wt Last Vital Signs Temp 97.6 F 10/31/20 15:39 Pulse 61 10/31/20 15:39 Resp 14 10/31/20 15:39 BP 131/76 10/31/20 15:39 Pulse Ox 97 10/31/20 15:39 10/31/20 10/31/20 10/31/20 06:59 14:59 22:59 Intake Total 150 / 1590 1054.167 / 1054.167 120 / 1174.167 Output Total 0 / 0 425 / 425 150 / 575 Balance 150 / 1590 629.167 / 629.167 -30 / 599.167 Physical Exam Narrative: EXAM NARRATIVE: Sleeping today but easily arousable, somewhat flat affect but answers questions Lungs are clear to auscultation bilaterally Irregular rhythm Abdomen soft Boots are intact of the lower extremities, dressings are intact, edema actually looks less today At PICC line site and right upper extremity there is some dried blood noted. Moves all extremities Data : 10/31/20 04:30 10/31/20 04:30 Micro: Microbiology 10/19/20 16:00 Blood Blood Culture - Final NO GROWTH AFTER 5 DAYS 10/19/20 15:55 Blood Blood Culture - Final NO GROWTH AFTER 5 DAYS 10/20/20 02:55 Urine,Voided Urine Culture - Final Kiki albicans 10/20/20 09:55 Tissue Gram Stain - Final 10/20/20 09:55 Tissue Wound Culture - Final Proteus mirabilis Methicillin Resis Staph Aureus Enterococcus faecalis 10/20/20 09:55 Foot - #2 Gram Stain - Final 10/20/20 09:55 Foot - #2 Tissue Culture - Final Proteus mirabilis 10/17/20 20:48 Blood Blood Culture - Final Bacillus sp not b. anthracis Bacteroides fragilis Proteus mirabilis 10/17/20 20:55 Blood Blood Culture - Final Bacillus sp not b. anthracis Bacteroides fragilis Proteus mirabilis A&P Assessment and plan (1) Contrast dye induced nephropathy: Starting to make some urine again so hopefully reaching a plateau Status: Acute (2) Critical lower limb ischemia: Status post peripheral arteriogram with intervention by Dr. Shaffer. Has known peripheral artery disease chronically. Status: Inactive (3) Sepsis: With bacteremia involving bacillus species, Bacteroides fragilis as well as Proteus mirabilis. Most likely source is foot wounds given cultures from wound collection demonstrating Proteus from 2 separate sources as well as other organisms to include enteric coccus faecalis and MRSA. 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: Status: Chronic (6) Elevated troponin: Status: Acute (7) Yeast UTI: Status: Resolved (8) Ischemic cardiomyopathy: Status: Chronic (9) Type 2 diabetes mellitus: Status: Chronic Qualifiers: Diabetes mellitus terminal system operator insulin use: with senior living use Diabetes mellitus complication status: with kidney complications Diabetes mellitus complication detail: with chronic kidney disease Chronic kidney disease stage: stage 3 (moderate) Chronic kidney disease stage 3 subtype: stage 3b (GFR 30-44) Qualified Code(s): E11.22 - Type 2 diabetes mellitus with diabetic chronic kidney disease; N18.32 - Chronic kidney disease, stage 3b; Z79.4 - manager intermediate (current) use of insulin (10) HTN (hypertension): Status: Chronic Qualifiers: Hypertension type: essential hypertension Qualified Code(s): I10 - Essential (primary) hypertension Additional A&P Information Continue to monitor urine output closely Straight cath if needed Monitor renal function Appreciate nephrology assistance We will consider a dose of diuretics Renvela started Allopurinol started Vitamin replacement started Continue to ensure renal dosing of medications Remains on Augmentin which I assume is for anaerobic coverage. Anticipate will be able to redose vancomycin tomorrow While vancomycin will provide coverage for MRSA utilization very well may lead to vancomycin resistant enteric coccus faecalis; alternative consideration includes linezolid which would provide coverage for both MRSA and enteric coccus. Cultures further illustrates that the calcaneal cultures are growing Proteus mirabilis. Soft tissue cultures are the ones that are polymicrobial with Proteus, MRSA and Enterococcus. Ampicillin is another consideration though dosing may be challenging in the outpatient setting. PICC line intact in right upper extremity for long-term IV antibiotics Reviewed Dr. Perez's notes with current wound care to include Dakin's solution 3 times a day on the left and silver alginate daily on the right with PODUS boots Remains off some antihypertensive agents secondary to borderline blood pressures Status post treatment with Diflucan On Eliquis for atrial fibrillation, dosing adjusted renally On beta-blockade, statin, levothyroxine, Plavix ARB currently held due to renal dysfunction On PPI Has pain medications Eliquis provides DVT prophylaxis PT and OT to continue while here Supportive care otherwise Current disposition is for skilled facility. Current authorization is valid for the next day or so. If his laboratory studies improve and urine output continues to improve may be able to consider disposition tomorrow but need to see continued progress in this regard to ensure that he is not likely to rapidly decline upon dispositioning. Plans discussed with patient and he was given an opportunity to ask questions Full code Attestations Medical Necessity Statement*: Requires ongoing inpatient stay in the setting of contrast-induced acute kidney injury. He has had some urine output today which is an improvement from yesterday. Until demonstrating evidence of stable renal function and electrolytes, continued urine output at high risk of rapid clinical decline upon disposition necessitating rapid intervention best managed in the acute setting Coding Level of Care Code Acute Financial Investment Adviser for [facility] Diagnoses Contrast dye induced nephropathy N14.1; T50.8X5A Critical lower limb ischemia I70.229 Sepsis A41.9 Sepsis type: sepsis due to unspecified organism Sepsis acute organ dysfunction status: unspecified Osteomyelitis M86.272 Osteomyelitis type: subacute Osteomyelitis location: foot Laterality: left 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
[2020-10-31 20:58] LABS: Glucose Point of Care 135 mg/dL (70-110)
[2020-10-31] MEDS: ampicillin-sulbactam 1.5 GM in sodium chloride 0.9% (plus) 50 ML IV (21:02)
[2020-10-31] MEDS: atorvastatin 40 mg Tablet PO (21:02)
[2020-10-31] MEDS: linezolid premix 600 MG/300 ML PREMIX 300 MG IV (21:02)
[2020-11-01] VITALS (12 sets, daily range): BP systolic 104–135; BP diastolic 58–96; PULSE 50–77; RESP 12–20; TEMP 36.4–36.7; O2SAT 94–99
[2020-11-01] MEDS: ampicillin-sulbactam 1.5 GM in sodium chloride 0.9% (plus) 50 ML IV ×4 (02:42→21:15)
[2020-11-01] MEDS: FUROsemide 10 mg/mL SDV 4mL 60 MG IVP (04:21)
[2020-11-01 04:52] LABS: Basophils # 0.1 10^3/uL (0.0-0.1); Basophils % 0.8 %; Eosinophils # 0.4 10^3/uL (0.0-0.8); Eosinophils % 6.6 %; Hematocrit 29.5 % (42.0-52.0); Hemoglobin 8.9 g/dL (11.7-16.6); Lymphocytes # 1.6 10^3/uL (0.8-4.8); Lymphocytes % 24.8 %; Mean Corpuscular HGB Conc 30.2 g/dL (30.0-36.0); Mean Corpuscular Hemoglobin 28.7 pg (28.0-34.0); Mean Corpuscular Volume 95.2 fL (80-94); Mean Platelet Volume 11.8 fL (7.4-10.4); Monocytes # 0.7 10^3/uL (0.2-0.9); Monocytes % 10.7 %; Neutrophils # 3.77 10^3/uL (1.8-7.7); Neutrophils % 56.9 %; Nucleated Red Blood Cells % 0 %; Platelet Count 195 10^3/cmm (130-400); Red Cell Distribution Width 19.3 % (12.1-15.1); White Blood Count 6.6 10^3/uL (4.0-10.0)
[2020-11-01 05:11] LABS: Vancomycin Random 14.9 ug/mL (20.0-40.0)
[2020-11-01 05:13] LABS: Alanine Aminotransferase < 5 U/L (0-41); Albumin Level 2.9 g/dL (3.5-5.2); Alkaline Phosphatase 125 IU/L (40-130); Anion Gap 13.7 (5-19); Aspartate Amino Transferase 12 U/L (0-40); Blood Urea Nitrogen 35 mg/dL (8-23); Calcium 8.5 mg/dL (8.5-10.5); Carbon Dioxide 25 mmol/L (22-29); Chloride 103 mmol/L (98-107); Glucose 100 mg/dL (65-115); Osmolality Calculated 292 mOsm/kg (285-295); Phosphorus 4.9 mg/dL (2.5-4.5); Potassium 4.7 mmol/L (3.5-5.1); Sodium 137 mmol/L (136-145); Total Bilirubin 0.5 mg/dL (0.15-1.2); Total Protein 5.9 g/dL (6.6-8.7)
[2020-11-01 06:44] LABS: Glucose Point of Care 120 mg/dL (70-110)
--- NOTE | 2020-11-01 07:23 | P.PN_ITS ---
Subjective Subjective: Interval history: feels better. has rt > left leg pain. no n/v/f/c/weldon/d/sob Medications: Reviewed: Yes Medication Review Details: Current Medications Acetaminophen (Acetaminophen 325 Mg Tablet) 325 - 650 mg PO Q4H PRN PRN Reason: MILD PAIN OR INCREASE TEMP Last Admin: 10/22/20 11:36 Dose: 650 mg Documented by: Hydrocodone Bitart/Acetaminophen (Hydrocodone-Acetaminophen 7.5-325 Mg Tablet) 1 tab PO Q4H PRN PRN Reason: SEVERE PAIN Last Admin: 10/31/20 21:49 Dose: 1 tab Documented by: Albuterol/Ipratropium (Ipratropium-Albuterol 3 Ml Neb) 3 ml INHALATION Q4H PRN PRN Reason: SHORTNESS OF BREATH Last Admin: 10/28/20 08:57 Dose: 3 ml Documented by: Allopurinol (Allopurinol 100 Mg Tablet) 100 mg PO DAILY [facility] Last Admin: 10/31/20 08:45 Dose: 100 mg Documented by: Atorvastatin Calcium (Atorvastatin 40 Mg Tablet) 40 mg PO BEDTIME [facility] Last Admin: 10/31/20 21:02 Dose: 40 mg Documented by: Clopidogrel Bisulfate (Clopidogrel 75 Mg Tablet) 75 mg PO DAILY [facility] Last Admin: 10/31/20 08:45 Dose: 75 mg Documented by: Dextrose (Dextrose 50% Syringe 50 Ml) 25 ml IVP ONCE PRN; Protocol PRN Reason: hypoglycemia protocol Dextrose (Dextrose 50% Syringe 50 Ml) 50 ml IVP PRN PRN; Protocol PRN Reason: hypoglycemia protocol Ergocalciferol (Ergocalciferol (Vitamin D2) 50,000 Unit Capsule) 50,000 unit PO Q7D [facility] Last Admin: 10/31/20 08:45 Dose: 50,000 unit Documented by: Glucagon (Glucagon 1 Mg/Ml Inj 1 Ml) 1 mg IM ONCE PRN; Protocol PRN Reason: Adult Acute Hypoglycemia Prot. Guaifenesin (Guaifenesin 600 Mg Tablet) 600 mg PO Q6H PRN PRN Reason: COUGH Last Admin: 10/23/20 17:34 Dose: 600 mg Documented by: Dextrose (D5w) 500 mls @ 100 mls/hr IV ONCE PRN; Protocol PRN Reason: Adult Acute Hypoglycemia Prot Ampicillin Sodium/Sulbactam (Sodium 1.5 gm/ Sodium Chloride) 50 mls @ 150 mls/hr IV Q6H [facility]; Protocol Last Infusion: 11/01/20 03:28 Dose: Infused Documented by: Linezolid (Zyvox Premix) 600 mg in 300 mls @ 300 mls/hr IV Q12H [facility]; Protocol Last Infusion: 10/31/20 23:14 Dose: Infused Documented by: Insulin Aspart (Insulin Aspart 100 Unit/1 Ml) 0 unit SUBCUT WM&BEDTIME [facility]; Protocol Last Admin: 10/31/20 21:02 Dose: Not Given Documented by: Lactobacillus Acidophilus (Lactobacillus 1 Tablet) 1 tab PO BID [facility] Levothyroxine Sodium (Levothyroxine 75 Mcg Tablet) 150 mcg PO DAILY [facility] Last Admin: 10/31/20 08:47 Dose: 150 mcg Documented by: Magnesium Hydroxide (Magnesium Hydroxide 30 Ml Udc) 30 ml PO DAILY PRN PRN Reason: CONSTIPATION Metoprolol Tartrate (Metoprolol Tartrate 25 Mg Tablet) 12.5 mg PO BID@899,2099 [facility] Last Admin: 10/31/20 21:42 Dose: Not Given Documented by: Naloxone HCl (Naloxone 0.4 Mg/Ml Sdv) 0.1 mg IVP Q2M PRN PRN Reason: RESPIRATORY RATE < 8/MIN Nitroglycerin (Nitroglycerin 0.4 Mg Sublingual Tablet) 0.4 mg SUBLINGUAL Q5M PRN PRN Reason: CHEST PAIN Pantoprazole Sodium (Pantoprazole Dr 40 Mg Tablet) 40 mg PO DAILY [facility] Last Admin: 10/31/20 08:46 Dose: 40 mg Documented by: Polyethylene Glycol (Polyethylene Glycol 3350 Pkt 17 Gm) 17 gm PO DAILY [facility] Last Admin: 10/31/20 09:01 Dose: Not Given Documented by: Senna/Docusate Sodium (Sennosides-Docusate Tablet) 1 tab PO DAILY [facility] Last Admin: 10/31/20 09:00 Dose: Not Given Documented by: Sodium Hypochlorite (Sodium Hypochlorite 0.25% Btl 473 Ml) 1 applic TOPICAL 00,2099 [facility] Last Admin: 10/31/20 21:03 Dose: 1 applic Documented by: Vitals/I&O/Wt Last Vital Signs Temp 98 F 11/01/20 04:00 Pulse 58 L 11/01/20 05:10 Resp 13 11/01/20 04:00 BP 130/74 11/01/20 04:00 Pulse Ox 95 11/01/20 04:00 10/31/20 11/01/20 11/01/20 22:59 06:59 14:59 Intake Total 170 / 1224.167 450 / 1674.167 Output Total 400 / 825 800 / 1625 225 / 225 Balance -230 / 399.167 -350 / 49.167 -225 / -225 Physical Exam Narrative: EXAM NARRATIVE: Elderly man comfortable in bed, NARD VS noted heent- nc/at, eomi, anicteric neck- supple lungs dull bases w/ some crackles heart- irreg irreg, +ION abd soft, nt, nd, +BS ext b/l edema, red areas on legs. Rt more edema and tender than left leg feet and ankles bandaged poor distal pulses Data : 11/01/20 04:03 11/01/20 04:03 A&P Additional A&P Information 79 yr old man 1. DM foot ulcers/ cellulitis/ OM- s/p debridement and Lower ext angiogram on 10/27/20 -if needs further vanco, please keep troughs under 19. -it apears that he has changed to linezolid - 6 weeks of abx from 10/20/20 gram neg bacteremia and staph -hyperphosphatemia- improving. holding sevelamer -renal dose unasyn 2. CKD stage 3- b/l cr 1.5- likely DM, HTN -u/a 10/29/20- no significant proteinuria- argues against DM nephropathy 3. MICHAEL- likely IRON- had significant dye load on 10/27/20 for LE angiogram and angioplasty - ua noted- Q UTI- f/u cx. - low ur na- c/w prerenal from inravascular volume depletion or from CHF -good uop after lasix. renal fxn starting to improve -low k diet 3. CAD, + stress test- for cardiac cath in future, when kidney fxn stablizes 4. a fib- renal dose eliquis 5. anemia- avoid iv iron w/ bacteremia. may benefit from BORIS - give a dose -iron sat 26%. ferritin 233 6. uric acid 11.7- give allopurinol 100 mgm daily 7. replace vit d- level is 23 -pth 158- repeat after replacing vit d if renal fxn continues to improve, then renal okay for d/c seen w/ RN. discussed case in detail Attestations Medical Necessity Statement*: PVD, MICHAEL Time Spent in Patient Care: 16 - 35 minutes Coding Level of Care Code Acute Supervisor Functional Testing for Chaitanya Parsons
[2020-11-01] MEDS: epoetin alfa 10,000 unit/mL INJ 10000 UNIT SUBCUT (08:08)
--- NOTE | 2020-11-01 09:30 | PC.NURSE ---
pt wants bath tonight
[2020-11-01] MEDS: lactobacillus 1 Tablet 1 TAB PO ×2 (10:59→19:12)
[2020-11-01] MEDS: polyethylene glycol 3350 Pkt 17 gm PO (10:59)
[2020-11-01] MEDS: sennosides-docusate Tablet 1 TAB PO (10:59)
[2020-11-01] MEDS: clopidogrel 75 mg Tablet PO (11:00)
[2020-11-01] MEDS: allopurinol 100 mg Tablet PO (11:00)
[2020-11-01] MEDS: levothyroxine 75 mcg Tablet 150 MCG PO (11:00)
[2020-11-01] MEDS: pantoprazole DR 40 mg Tablet PO (11:01)
[2020-11-01] MEDS: metoprolol tartrate 25 mg Tablet 12.5 MG PO (11:06)
[2020-11-01] MEDS: sodium hypochlorite 0.25% Btl 473 mL 1 APPLIC TOPICAL ×2 (11:07→21:16)
[2020-11-01] MEDS: linezolid premix 600 MG/300 ML PREMIX 300 MG IV ×2 (11:07→21:11)
[2020-11-01 11:24] LABS: Glucose Point of Care 205 mg/dL (70-110)
--- NOTE | 2020-11-01 13:04 | PC.SOCIAL ---
IMM Update Pg.2 of IMM updated and reviewed with patient who verbalized understanding. Copy provided.
--- NOTE | 2020-11-01 16:29 | PM.PN ---
Subjective Subjective: Interval history: Patient seen bedside doing well wearing offloading boots and has been receiving twice daily dressing changes to the left heel, once daily dressing changes to the right. Denies any pain, no strikethrough bleeding at the dressings. Patient denies any subjective nausea, vomiting, fever, chills, shortness of breath or chest pain. Vitals/I&O/Wt Last Vital Signs Temp 98.0 F 11/01/20 15:19 Pulse 53 L 11/01/20 15:19 Resp 12 11/01/20 15:19 BP 113/67 11/01/20 15:19 Pulse Ox 99 11/01/20 15:19 11/01/20 11/01/20 11/01/20 06:59 14:59 22:59 Intake Total 450 / 1674.167 530 / 530 Output Total 800 / 1625 475 / 475 Balance -350 / 49.167 55 / 55 Physical Exam Narrative: EXAM NARRATIVE: Patient is alert and oriented ?3 and in no acute distress. The following is a focused bilateral lower extremity exam. VASCULAR: Dorsalis pedis palpable posterior tibial arteries palpable. Capillary refill time less than 5 seconds to the distal hallux bilaterally. Calf is supple and nontender proximally and distally. Pitting edema to lower extremities left greater than right. Diminished pedal hair growth bilaterally. NEUROLOGICAL: Protective sensation intact 0/10 sites, tested with Frostproof Denise monofilament to bilateral feet. DERMATOLOGICAL: Venous stasis ulcerations resolving bilateral legs limited to breakdown of skin. Cellulitis to the distal one third of the left leg source is from the left heel improving. Increased granulation tissue without erythema or purulence at the right heel wound 95% granulation tissue 5% fibrotic. Left heel wound exposed bone, no purulent drainage improved erythema. Left posterior heel wound 6 cm x 5 cm x 1.5 cm 50% granular 50% fibrotic. Healthy granular wound to the right plantar heel improving with epithelialized margin no surrounding erythema, warmth or drainage measures 2 cm x 1.8 cm x 0.2 cm. MUSCULOSKELETAL: Tenderness at left heel. Hammertoe deformities 2 through 5 bilaterally are reducible. Ankle joint dorsiflexion is to neutral. No pain with posterior calf squeeze bilaterally. Pre debridement Post Debridement Data : 11/02/20 04:05 11/02/20 04:05 Micro: Microbiology 10/31/20 05:10 Urine Culture - Preliminary Urine,Clean Catch A&P Assessment and plan (1) Peripheral arterial disease: Status: Chronic (2) Diabetes mellitus with diabetic polyneuropathy: Status: Chronic Qualifiers: Diabetes mellitus type: type 2 Diabetes mellitus senior care insulin use: with senior care use Qualified Code(s): E11.42 - Type 2 diabetes mellitus with diabetic polyneuropathy; Z79.4 - halfway (current) use of insulin (3) Non-pressure chronic ulcer of other part of right foot with necrosis of bone: Status: Acute -Incision and debridement left heel with bone biopsy of left calcaneus performed 10/20/20 -Will need to offload bilateral heels at all times while at rest during this hospitalization as well as at discharge/transfer. PODUS boots will need to be utilized -Currently receiving empiric IV antibiotics, bone culture pending, growing staph, proteus and enterococcus -Quarter percent Dakin solution wet to dry dressing change 3 times daily left heel wound during this hospitalization. -Silver alginate to right heel wound once daily dressing change. 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 No plans for further surgical debridement during this hospitalization, wound is stable at this point would benefit from wound care referral on transfer, plans for treatment of left calcaneus osteomyelitis with long-term IV antibiotics. Okay for discharge/transfer from podiatry standpoint. Dr. Perez Cell phone [phone] Attestations Medical Necessity Statement*: Diabetic foot infection with osteomyelitis Coding Level of Care Code Acute Passport Support Manager for [facility] Diagnoses Peripheral arterial disease I73.9 Diabetes mellitus with diabetic polyneuropathy E11.42; Z79.4 Diabetes mellitus type: type 2 Diabetes mellitus intermediate project manager insulin use: with senior care use Non-pressure chronic ulcer of other part of right foot with necrosis of bone L97.514
[2020-11-01 16:56] LABS: Glucose Point of Care 86 mg/dL (70-110)
--- NOTE | 2020-11-01 19:24 | P.PN_ITS ---
Subjective Subjective: Interval history: Creatinine has improved. No overnight complaint. Medications: Reviewed: Yes Medication Review Details: Current Medications Acetaminophen (Acetaminophen 325 Mg Tablet) 325 - 650 mg PO Q4H PRN PRN Reason: MILD PAIN OR INCREASE TEMP Last Admin: 10/22/20 11:36 Dose: 650 mg Documented by: Hydrocodone Bitart/Acetaminophen (Hydrocodone-Acetaminophen 7.5-325 Mg Tablet) 1 tab PO Q4H PRN PRN Reason: SEVERE PAIN Last Admin: 10/31/20 21:49 Dose: 1 tab Documented by: Albuterol/Ipratropium (Ipratropium-Albuterol 3 Ml Neb) 3 ml INHALATION Q4H PRN PRN Reason: SHORTNESS OF BREATH Last Admin: 10/28/20 08:57 Dose: 3 ml Documented by: Allopurinol (Allopurinol 100 Mg Tablet) 100 mg PO DAILY [facility] Last Admin: 10/31/20 08:45 Dose: 100 mg Documented by: Atorvastatin Calcium (Atorvastatin 40 Mg Tablet) 40 mg PO BEDTIME [facility] Last Admin: 10/31/20 21:02 Dose: 40 mg Documented by: Clopidogrel Bisulfate (Clopidogrel 75 Mg Tablet) 75 mg PO DAILY [facility] Last Admin: 10/31/20 08:45 Dose: 75 mg Documented by: Dextrose (Dextrose 50% Syringe 50 Ml) 25 ml IVP ONCE PRN; Protocol PRN Reason: hypoglycemia protocol Dextrose (Dextrose 50% Syringe 50 Ml) 50 ml IVP PRN PRN; Protocol PRN Reason: hypoglycemia protocol Ergocalciferol (Ergocalciferol (Vitamin D2) 50,000 Unit Capsule) 50,000 unit PO Q7D [facility] Last Admin: 10/31/20 08:45 Dose: 50,000 unit Documented by: Glucagon (Glucagon 1 Mg/Ml Inj 1 Ml) 1 mg IM ONCE PRN; Protocol PRN Reason: Adult Acute Hypoglycemia Prot. Guaifenesin (Guaifenesin 600 Mg Tablet) 600 mg PO Q6H PRN PRN Reason: COUGH Last Admin: 10/23/20 17:34 Dose: 600 mg Documented by: Dextrose (D5w) 500 mls @ 100 mls/hr IV ONCE PRN; Protocol PRN Reason: Adult Acute Hypoglycemia Prot Ampicillin Sodium/Sulbactam (Sodium 1.5 gm/ Sodium Chloride) 50 mls @ 150 mls/hr IV Q6H [facility]; Protocol Last Infusion: 11/01/20 03:28 Dose: Infused Documented by: Linezolid (Zyvox Premix) 600 mg in 300 mls @ 300 mls/hr IV Q12H [facility]; Protocol Last Infusion: 10/31/20 23:14 Dose: Infused Documented by: Insulin Aspart (Insulin Aspart 100 Unit/1 Ml) 0 unit SUBCUT WM&BEDTIME [facility]; Protocol Last Admin: 10/31/20 21:02 Dose: Not Given Documented by: Lactobacillus Acidophilus (Lactobacillus 1 Tablet) 1 tab PO BID [facility] Levothyroxine Sodium (Levothyroxine 75 Mcg Tablet) 150 mcg PO DAILY [facility] Last Admin: 10/31/20 08:47 Dose: 150 mcg Documented by: Magnesium Hydroxide (Magnesium Hydroxide 30 Ml Udc) 30 ml PO DAILY PRN PRN Reason: CONSTIPATION Metoprolol Tartrate (Metoprolol Tartrate 25 Mg Tablet) 12.5 mg PO BID@899,2099 [facility] Last Admin: 10/31/20 21:42 Dose: Not Given Documented by: Naloxone HCl (Naloxone 0.4 Mg/Ml Sdv) 0.1 mg IVP Q2M PRN PRN Reason: RESPIRATORY RATE < 8/MIN Nitroglycerin (Nitroglycerin 0.4 Mg Sublingual Tablet) 0.4 mg SUBLINGUAL Q5M PRN PRN Reason: CHEST PAIN Pantoprazole Sodium (Pantoprazole Dr 40 Mg Tablet) 40 mg PO DAILY [facility] Last Admin: 10/31/20 08:46 Dose: 40 mg Documented by: Polyethylene Glycol (Polyethylene Glycol 3350 Pkt 17 Gm) 17 gm PO DAILY [facility] Last Admin: 10/31/20 09:01 Dose: Not Given Documented by: Senna/Docusate Sodium (Sennosides-Docusate Tablet) 1 tab PO DAILY [facility] Last Admin: 10/31/20 09:00 Dose: Not Given Documented by: Sodium Hypochlorite (Sodium Hypochlorite 0.25% Btl 473 Ml) 1 applic TOPICAL 899,2099 [facility] Last Admin: 10/31/20 21:03 Dose: 1 applic Documented by: Vitals/I&O/Wt Last Vital Signs Temp 98.0 F 11/01/20 15:19 Pulse 50 L 11/01/20 16:31 Resp 18 11/01/20 16:31 BP 104/58 11/01/20 16:31 Pulse Ox 95 11/01/20 16:31 11/01/20 11/01/20 11/01/20 06:59 14:59 22:59 Intake Total 450 / 1674.167 830 / 830 50 / 880 Output Total 800 / 1625 475 / 475 Balance -350 / 49.167 355 / 355 50 / 405 Physical Exam Narrative: EXAM NARRATIVE: GENERAL: Patient is alert, awake and oriented x3. NECK: No jugular vein distension. HEENT: No cyanosis. No icterus. No pallor. HEART: Regular S1 and S2. No murmur, rub or gallop. LUNGS: Clear to auscultate bilaterally. ABDOMEN: Soft, nontender and nondistended. Positive bowel sounds. No guarding, rebound or tenderness. CENTRAL NERVOUS SYSTEM: Grossly nonfocal. EXTREMITIES: Lower extremities without edema bilaterally. Data : 11/01/20 04:03 11/01/20 04:03 Micro: Microbiology 10/31/20 05:10 Urine Culture - Preliminary Urine,Clean Catch A&P Assessment and plan (1) Elevated troponin: Troponin elevation possibly secondary to type 2 MO . On asprin and plavix. Stress test shows inferior wall infarct with some augustin-infarct ischemia and small area of ischemia of the apical wall. Patient is chest pain free at this time. As his renal function is abnormal, we prioritized the peripheral revascularization as he has osteomyelitis and non healing and would help with healing process.Given patient's renal dysfunction, no consideration for cardiac currently. May proceed with it in future. Currently stable from a coronary disease perspective continue to optimize medicine due to contrast-induced nephropathy and renal failure will continue treating medically Status: Acute (2) Ischemic cardiomyopathy: Appear to be stable and not volume overloaded continue to monitor Status: Chronic (3) ASHD (arteriosclerotic heart disease): Appear to be stable continue to treat medically due to underlying renal failure. Status: Chronic (4) Venous stasis ulcers of both lower extremities: May ask for venous reflux study Status: Chronic (5) Sepsis: Continue antibiotics Status: Resolved Qualifiers: Sepsis type: sepsis due to unspecified organism Sepsis acute organ dysfunction status: unspecified Qualified Code(s): A41.9 - Sepsis, unspecified organism (6) Type 2 diabetes mellitus: As per medicine Status: Chronic Qualifiers: Diabetes mellitus terminal system operator insulin use: with terminal system operator use Diabetes mellitus complication status: with kidney complications Diabetes mellitus complication detail: with chronic kidney disease Chronic kidney disease stage: stage 3 (moderate) Chronic kidney disease stage 3 subtype: stage 3b (GFR 30-44) Qualified Code(s): E11.22 - Type 2 diabetes mellitus with diabetic chronic kidney disease; N18.32 - Chronic kidney disease, stage 3b; Z79.4 - shelter (current) use of insulin (7) HTN (hypertension): Currently he is normotensive Status: Chronic Qualifiers: Hypertension type: essential hypertension Qualified Code(s): I10 - Essential (primary) hypertension (8) Peripheral arterial disease: Post balloon angioplasty of tibioperoneal trunk and anterior tibial with excellent results. Stable continue current regimen Status: Chronic (9) Bilateral leg edema: This could be multifactorial. Chronic systolic heart failure, chronic venous stasis, peripheral arterial disease, dependency, etc. are contributing factors. Patient may be carefully treated with diuretics. Continue managing the precipitating factors. Continue to monitor. Status: Acute (10) Critical lower limb ischemia: peripheral angiogram was performed that showed severe left Tibioperoneal trunk and anterior tibial artery stenosis. Underwent successful revascularization with balloon angioplasty with excellent results. Patient has right sided severe disease that will be revascularized as a staged procedure. He has developed contrast induced nephropathy IV fluids Plavix 75mg daily. Recommend eliquis 5mg BID for afib Status: Inactive (11) New onset a-fib: Patient has new onset afib. Heart rate is controlled. Will recommend plavix and eliquis 5mg BID Status: Acute (12) Contrast dye induced nephropathy: Patient has baseline CKD and has developed worsening of renal function today likely secondary to Contrast induced nephropathy. Hold Lasix. Continue IV fluids at 75cc/hour. 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 Thank you for the opportunity to evaluate this patient and make these recommendations. Attestations Medical Necessity Statement*: Patient require continuation hospitalization for above defined problem. Coding Level of Care Code Established Pt Acute Application Development Liaison for [employer] Patient Type Established History Detailed Exam Detailed Medical Decision Making Moderate Complexity Diagnoses Elevated troponin R77.8 Ischemic cardiomyopathy I25.5 ASHD (arteriosclerotic heart disease) I25.10 Venous stasis ulcers of both lower extremities I83.019; I83.029; L97.919; L97.929 Sepsis A41.9 Sepsis type: sepsis due to unspecified organism Sepsis acute organ dysfunction status: unspecified Type 2 diabetes mellitus E11.22; N18.32; Z79.4 Diabetes mellitus terminal system operator insulin use: with ch[facility] use Diabetes mellitus complication status: with kidney complications Diabetes mellitus complication detail: with chronic kidney disease Chronic kidney disease stage: stage 3 (moderate) Chronic kidney disease stage 3 subtype: stage 3b (GFR 30-44) HTN (hypertension) I10 Hypertension type: essential hypertension Peripheral arterial disease I73.9 Bilateral leg edema R60.0 Critical lower limb ischemia I70.229 New onset a-fib I48.91 Contrast dye induced nephropathy N14.1; T50.8X5A
[2020-11-01 20:15] LABS: Glucose Point of Care 117 mg/dL (70-110)
[2020-11-01] MEDS: atorvastatin 40 mg Tablet PO (21:11)
--- NOTE | 2020-11-01 21:12 | P.PN_ITS ---
Subjective Subjective: Interval history: Patient tired of being in the hospital and not always willing to participate in therapy. He indicates that he wants to go home rather than to a rehab facility. He is doing better but weightbearing status is limited and he continues to require assistance. He also continues to require IV antibiotics for osteomyelitis and will for some time going forward. Improved urine output after receiving Lasix yesterday. Vitals/I&O/Wt Last Vital Signs Temp 98 F 11/01/20 20:00 Pulse 62 11/01/20 20:00 Resp 15 11/01/20 20:00 BP 121/68 11/01/20 20:00 Pulse Ox 94 11/01/20 20:00 11/01/20 11/01/20 11/01/20 06:59 14:59 22:59 Intake Total 450 / 1674.167 830 / 830 50 / 880 Output Total 800 / 1625 475 / 475 Balance -350 / 49.167 355 / 355 50 / 405 Physical Exam Narrative: EXAM NARRATIVE: Awake and alert no specific complaints, clear to auscultation anteriorly, regular rhythm, abdomen soft PODUS boots on generally weak but moves all extremities Data : 11/01/20 04:03 11/01/20 04:03 Micro: Microbiology 10/31/20 05:10 Urine Culture - Preliminary Urine,Clean Catch A&P Assessment and plan (1) Contrast dye induced nephropathy: Showing evidence of improvement Status: Acute (2) Critical lower limb ischemia: Status post peripheral arteriogram with intervention by Dr. Shaffer. Has known peripheral artery disease chronically. Status: Inactive (3) Sepsis: With bacteremia involving bacillus species, Bacteroides fragilis as well as Proteus mirabilis. Most likely source is foot wounds given cultures from wound collection demonstrating Proteus from 2 separate sources as well as other organisms to include enteric coccus faecalis and MRSA. E faecalis on these cultures was still sensitive to vancomycin with an FÁTIMA of 2. Was also sensitive to linezolid. 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: Status: Chronic (6) Elevated troponin: Status: Acute (7) Yeast UTI: Status: Resolved (8) Ischemic cardiomyopathy: Status: Chronic (9) Type 2 diabetes mellitus: Status: Chronic Qualifiers: Diabetes mellitus nursing home insulin use: with nursing home use Diabetes mellitus complication status: with kidney complications Diabetes mellitus complication detail: with chronic kidney disease Chronic kidney disease stage: stage 3 (moderate) Chronic kidney disease stage 3 subtype: stage 3b (GFR 30-44) Qualified Code(s): E11.22 - Type 2 diabetes mellitus with diabetic chronic kidney disease; N18.32 - Chronic kidney disease, stage 3b; Z79.4 - alf (current) use of insulin (10) HTN (hypertension): Status: Chronic Qualifiers: Hypertension type: essential hypertension Qualified Code(s): I10 - Essential (primary) hypertension Additional A&P Information Nursing reported some bradycardia today but not sustained Off of IV fluids Status post 1 dose of Lasix yesterday Continue to monitor renal function Appreciate nephrology assistance Has been started on Renvela, allopurinol and vitamin D replacement Renal dose all medications I changed to Zyvox and Unasyn yesterday after review of cultures, see note from 10/31 for details PICC line intact in right upper extremity for long-term IV antibiotics, 4 to 6 weeks from October 20 Wound care currently Dakin's solution 3 times a day on the left and silver alginate daily on the right with PODUS boots; pictures noted in Dr. Perez's note today Remains off some antihypertensive agents secondary to borderline blood pressures Status post treatment with Diflucan Had been on Augmentin and vancomycin On Eliquis for atrial fibrillation, dosing adjusted renally On beta-blockade, statin, levothyroxine, Plavix ARB currently held due to renal dysfunction On PPI Has pain medications Eliquis provides DVT prophylaxis PT and OT to continue Supportive care otherwise Plans discussed with patient and he was given an opportunity to ask questions Patient is indicating that he may not wish to go to rehab now. Will discuss with him again in the morning. He has been accepted and if renal function continues to improve we will strongly consider Full code Attestations Medical Necessity Statement*: Requires ongoing inpatient stay for continued management of contrast-induced nephropathy though showing improvement and likely may be able to be discharged soon Coding Level of Care Code Acute Skin Specialist for Chg Fwd Diagnoses Contrast dye induced nephropathy N14.1; T50.8X5A Critical lower limb ischemia I70.229 Sepsis A41.9 Sepsis type: sepsis due to unspecified organism Sepsis acute organ dysfunction status: unspecified Osteomyelitis M86.272 Osteomyelitis type: subacute Osteomyelitis location: foot Laterality: left Chronic ulcer of left heel with necrosis of muscle L97.423 Elevated troponin R77.8 Yeast UTI B37.49 Ischemic cardiomyopathy I25.5 Type 2 diabetes mellitus E11.22; N18.32; Z79.4 Diabetes mellitus nursing home insulin use: with nursing home use Diabetes mellitus complication status: with kidney complications Diabetes mellitus complication detail: with chronic kidney disease Chronic kidney disease stage: stage 3 (moderate) Chronic kidney disease stage 3 subtype: stage 3b (GFR 30-44) HTN (hypertension) I10 Hypertension type: essential hypertension
--- NOTE | 2020-11-01 22:24 | PC.NURSE ---
Asked patient if he would like to wash up. Patient stated Not right now. Will let you know.
[2020-11-02] VITALS (8 sets, daily range): BP systolic 96–141; BP diastolic 48–72; PULSE 51–65; RESP 12–22; TEMP 36.4–36.8; O2SAT 94–98
[2020-11-02] MEDS: ampicillin-sulbactam 1.5 GM in sodium chloride 0.9% (plus) 50 ML IV ×3 (03:46→15:04)
[2020-11-02 05:43] LABS: Basophils % 0.7 %; Eosinophils # 0.4 10^3/uL (0.0-0.8); Eosinophils % 6.1 %; Hematocrit 28.1 % (42.0-52.0); Hemoglobin 8.8 g/dL (11.7-16.6); Lymphocytes # 1.2 10^3/uL (0.8-4.8); Lymphocytes % 19.5 %; Mean Corpuscular HGB Conc 31.3 g/dL (30.0-36.0); Mean Corpuscular Hemoglobin 29.4 pg (28.0-34.0); Mean Platelet Volume 11.2 fL (7.4-10.4); Monocytes # 0.8 10^3/uL (0.2-0.9); Monocytes % 12.9 %; Neutrophils # 3.56 10^3/uL (1.8-7.7); Neutrophils % 60.3 %; Nucleated Red Blood Cells % 0 %; Platelet Count 186 10^3/cmm (130-400); Red Blood Count 2.99 10^6/uL (4.1-5.3); Red Cell Distribution Width 19.4 % (12.1-15.1); White Blood Count 5.9 10^3/uL (4.0-10.0)
--- NOTE | 2020-11-02 05:51 | PC.NURSE ---
Dr. Walsh gave permission to transfer patient to [facility].
[2020-11-02 05:57] LABS: SARS Covid-2 Antigen Negative (Negative)
[2020-11-02 06:03] LABS: Alanine Aminotransferase < 5 U/L (0-41); Alkaline Phosphatase 126 IU/L (40-130); Anion Gap 15.2 (5-19); Aspartate Amino Transferase 11 U/L (0-40); Blood Urea Nitrogen 28 mg/dL (8-23); Calcium 8.4 mg/dL (8.5-10.5); Carbon Dioxide 25 mmol/L (22-29); Chloride 102 mmol/L (98-107); Globulin 3.2 g/dL (1.3-4.6); Glucose 96 mg/dL (65-115); Magnesium 1.8 mg/dL (1.7-2.3); Osmolality Calculated 291 mOsm/kg (285-295); Phosphorus 3.5 mg/dL (2.5-4.5); Potassium 4.2 mmol/L (3.5-5.1); Sodium 138 mmol/L (136-145); Total Bilirubin 0.5 mg/dL (0.15-1.2); Total Protein 6.2 g/dL (6.6-8.7)
[2020-11-02 07:02] LABS: Glucose Point of Care 115 mg/dL (70-110)
--- NOTE | 2020-11-02 08:05 | P.PN_ITS ---
Subjective Subjective: Interval history: wants to go home. states he feels better. still w/ leg edema and tenderness. no n/v/f/c/weldon/d/sob Medications: Reviewed: Yes Medication Review Details: Current Medications Acetaminophen (Acetaminophen 325 Mg Tablet) 325 - 650 mg PO Q4H PRN PRN Reason: MILD PAIN OR INCREASE TEMP Last Admin: 10/22/20 11:36 Dose: 650 mg Documented by: Hydrocodone Bitart/Acetaminophen (Hydrocodone-Acetaminophen 7.5-325 Mg Tablet) 1 tab PO Q4H PRN PRN Reason: SEVERE PAIN Last Admin: 10/31/20 21:49 Dose: 1 tab Documented by: Albuterol/Ipratropium (Ipratropium-Albuterol 3 Ml Neb) 3 ml INHALATION Q4H PRN PRN Reason: SHORTNESS OF BREATH Last Admin: 10/28/20 08:57 Dose: 3 ml Documented by: Allopurinol (Allopurinol 100 Mg Tablet) 100 mg PO DAILY [facility] Last Admin: 11/01/20 11:00 Dose: 100 mg Documented by: Atorvastatin Calcium (Atorvastatin 40 Mg Tablet) 40 mg PO BEDTIME [facility] Last Admin: 11/01/20 21:11 Dose: 40 mg Documented by: Clopidogrel Bisulfate (Clopidogrel 75 Mg Tablet) 75 mg PO DAILY [facility] Last Admin: 11/01/20 11:00 Dose: 75 mg Documented by: Dextrose (Dextrose 50% Syringe 50 Ml) 25 ml IVP ONCE PRN; Protocol PRN Reason: hypoglycemia protocol Dextrose (Dextrose 50% Syringe 50 Ml) 50 ml IVP PRN PRN; Protocol PRN Reason: hypoglycemia protocol Ergocalciferol (Ergocalciferol (Vitamin D2) 50,000 Unit Capsule) 50,000 unit PO Q7D [facility] Last Admin: 10/31/20 08:45 Dose: 50,000 unit Documented by: Glucagon (Glucagon 1 Mg/Ml Inj 1 Ml) 1 mg IM ONCE PRN; Protocol PRN Reason: Adult Acute Hypoglycemia Prot. Guaifenesin (Guaifenesin 600 Mg Tablet) 600 mg PO Q6H PRN PRN Reason: COUGH Last Admin: 10/23/20 17:34 Dose: 600 mg Documented by: Dextrose (D5w) 500 mls @ 100 mls/hr IV ONCE PRN; Protocol PRN Reason: Adult Acute Hypoglycemia Prot Ampicillin Sodium/Sulbactam (Sodium 1.5 gm/ Sodium Chloride) 50 mls @ 150 m ls/hr IV Q6H [facility]; Protocol Last Infusion: 11/02/20 05:54 Dose: Infused Documented by: Linezolid (Zyvox Premix) 600 mg in 300 mls @ 300 mls/hr IV Q12H [facility]; Protocol Last Infusion: 11/02/20 05:55 Dose: Infused Documented by: Insulin Aspart (Insulin Aspart 100 Unit/1 Ml) 0 unit SUBCUT WM&BEDTIME [facility]; Protocol Last Admin: 11/02/20 07:57 Dose: Not Given Documented by: Lactobacillus Acidophilus (Lactobacillus 1 Tablet) 1 tab PO BID [facility] Last Admin: 11/01/20 19:12 Dose: 1 tab Documented by: Levothyroxine Sodium (Levothyroxine 75 Mcg Tablet) 150 mcg PO DAILY [facility] Last Admin: 11/01/20 11:00 Dose: 150 mcg Documented by: Magnesium Hydroxide (Magnesium Hydroxide 30 Ml Udc) 30 ml PO DAILY PRN PRN Reason: CONSTIPATION Metoprolol Tartrate (Metoprolol Tartrate 25 Mg Tablet) 12.5 mg PO BID@0900,2100 [facility] Last Admin: 11/01/20 11:06 Dose: 12.5 mg Documented by: Naloxone HCl (Naloxone 0.4 Mg/Ml Sdv) 0.1 mg IVP Q2M PRN PRN Reason: RESPIRATORY RATE < 8/MIN Nitroglycerin (Nitroglycerin 0.4 Mg Sublingual Tablet) 0.4 mg SUBLINGUAL Q5M PRN PRN Reason: CHEST PAIN Pantoprazole Sodium (Pantoprazole Dr 40 Mg Tablet) 40 mg PO DAILY [facility] Last Admin: 11/01/20 11:01 Dose: 40 mg Documented by: Polyethylene Glycol (Polyethylene Glycol 3350 Pkt 17 Gm) 17 gm PO DAILY [facility] Last Admin: 11/01/20 10:59 Dose: 17 gm Documented by: Senna/Docusate Sodium (Sennosides-Docusate Tablet) 1 tab PO DAILY [facility] Last Admin: 11/01/20 10:59 Dose: 1 tab Documented by: Sodium Hypochlorite (Sodium Hypochlorite 0.25% Btl 473 Ml) 1 applic TOPICAL 0900,2100 [facility] Last Admin: 11/01/20 21:16 Dose: 1 applic Documented by: Vitals/I&O/Wt Last Vital Signs Temp 97.8 F 11/02/20 07:18 Pulse 65 11/02/20 07:18 Resp 19 H 11/02/20 07:18 BP 124/68 11/02/20 07:18 Pulse Ox 96 11/02/20 07:18 11/01/20 11/02/20 11/02/20 22:59 06:59 14:59 Intake Total 100 / 930 350 / 1280 Output Total 300 / 775 450 / 1225 250 / 250 Balance -200 / 155 -100 / 55 -250 / -250 Physical Exam Narrative: EXAM NARRATIVE: Elderly man comfortable in bed, NARD VS noted heent- nc/at, eomi, anicteric neck- supple lungs dull bases w/ some crackles heart- irreg irreg, +ION abd soft, nt, nd, +BS ext b/l edema, red areas on legs. Rt more edema and tender than left leg feet and ankles bandaged poor distal pulses Data : 11/02/20 04:05 11/02/20 04:05 Micro: Microbiology 10/31/20 05:10 Urine Culture - Preliminary Urine,Clean Catch A&P Additional A&P Information 79 yr old man 1. 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 CKD stage 3- b/l cr 1.5- likely DM, HTN -u/a 10/29/20- no significant proteinuria- argues against DM nephropathy 3. MICHAEL- likely IRON- had significant dye load on 10/27/20 for LE angiogram and angioplasty - ua noted- Q UTI- f/u cx. - low ur na- c/w prerenal from inravascular volume depletion or from CHF -good uop after lasix. renal fxn improving 3. CAD, + stress test- for cardiac cath in future, when kidney fxn stablizes 4. a fib- per medicine 5. anemia- avoid iv iron w/ bacteremia. may benefit from BORIS - give a dose -iron sat 26%. ferritin 233 6. uric acid 11.7- give allopurinol 100 mgm daily -repeat uric acid 7. replace vit d- level is 23 -pth 158- repeat after replacing vit d renal fxn continues to improve, renal okay for d/c seen w/ RN. telehealth visit Attestations Medical Necessity Statement*: per medicine Time Spent in Patient Care: 16 - 35 minutes Coding Level of Care Code Acute Production Line Technician for Chaitanya Parsons
--- NOTE | 2020-11-02 08:51 | PC.NURSE ---
Pt transfered to Med surg room 266. Report call to JUDITH Roman. Pt had no c/o pain or discomfort at the time of transfer.
[2020-11-02] MEDS: levothyroxine 150 mcg Tablet PO (09:14)
[2020-11-02] MEDS: pantoprazole DR 40 mg Tablet PO (09:14)
[2020-11-02] MEDS: lactobacillus 1 Tablet 1 TAB PO (09:14)
[2020-11-02] MEDS: allopurinol 100 mg Tablet PO (09:14)
[2020-11-02] MEDS: clopidogrel 75 mg Tablet PO (09:14)
--- NOTE | 2020-11-02 09:17 | XR_ITS ---
WS: [id number] Left foot, Clinical Data: left heel ulcer eval Comparison: None. Findings: There is air which appears to penetrate into the calcaneus which is consistent with osteomyelitis. Th ere are flexion deformities of the second through fifth toes. Soft tissue swelling about the foot is seen. There is an old fracture of the distal left tibia. No new fractures are seen. There are calcifications in the zepeda of small vessels. XR/XR foot LT min 3V* [id number] Impression: 1. Superficial ulcer which appears to penetrate into the posterior calcaneus an d is consistent with osteomyelitis. 2. Diffuse soft tissue swelling about the left foot. 3. Flexion deformities of the second through fifth toes.
[2020-11-02] MEDS: linezolid premix 600 MG/300 ML PREMIX 300 MG IV (09:19)
[2020-11-02] MEDS: sodium hypochlorite 0.25% Btl 473 mL 1 APPLIC TOPICAL (09:31)
[2020-11-02 09:57] LABS: Erythrocyte Sedimentation Rate 41 mm/hr (0-10)
[2020-11-02 11:05] LABS: Glucose Point of Care 185 mg/dL (70-110)
--- NOTE | 2020-11-02 11:49 | P.DS_ITS ---
Discharge Providers Date of Admission: 10/17/20 22:40 Date of Discharge: November 02, 2020 Attending Provider at Admission: Stewart Walsh MD Attending Provider at Discharge: Coby Miner MD Consults: Cardiology Nephrolgy Podiatry/Wound Care Primary Care Provider: Jose Manuel Mooney MD Diagnoses at Discharge Discharge Diagnosis (1) Sepsis: Status: Resolved Qualifiers: Sepsis type: sepsis due to unspecified organism Sepsis acute organ dysfunction status: unspecified Qualified Code(s): A41.9 - Sepsis, unspecified organism (2) Osteomyelitis: Status: Acute Qualifiers: Osteomyelitis type: subacute Osteomyelitis location: foot Laterality: left Qualified Code(s): M86.272 - Subacute osteomyelitis, left ankle and foot (3) Enterococcus faecalis infection: Status: Acute (4) MRSA (methicillin resistant Staphylococcus aureus) infection: Status: Acute (5) Proteus infection: Status: Acute (6) Anaerobic bacteremia: Status: Acute (7) Critical lower limb ischemia: Status: Acute (8) S/P peripheral artery angioplasty: Status: Acute (9) Peripheral arterial disease: Status: Chronic (10) Non-pressure chronic ulcer of other part of right foot with necrosis of bone: Status: Acute (11) New onset a-fib: Status: Acute (12) Elevated troponin: Status: Acute (13) Ischemic cardiomyopathy: Status: Chronic (14) ASHD (arteriosclerotic heart disease): Status: Chronic (15) Contrast dye induced nephropathy: Status: Acute (16) CKD (chronic kidney disease): Status: Chronic Qualifiers: Chronic kidney disease stage: stage 3 (moderate) Qualified Code(s): N18.3 - Chronic kidney disease, stage 3 (moderate) (17) Anemia: Status: Chronic Qualifiers: Anemia type: due to chronic kidney disease Chronic kidney disease stage: unspecified stage Qualified Code(s): N18.9 - Chronic kidney disease, unspecified; D63.1 - Anemia in chronic kidney disease (18) HTN (hypertension): Status: Chronic Qualifiers: Hypertension type: essential hypertension Qualified Code(s): I10 - Ess ential (primary) hypertension (19) Dyslipidemia: Status: Chronic (20) Type 2 diabetes mellitus: Status: Chronic Qualifiers: Diabetes mellitus mcfp insulin use: with real estate closer use Diabetes mellitus complication status: with kidney complications Diabetes mellitus complication detail: with chronic kidney disease Chronic kidney disease stage: stage 3 (moderate) Chronic kidney disease stage 3 subtype: stage 3b (GFR 30-44) Qualified Code(s): E11.22 - Type 2 diabetes mellitus with diabetic chronic kidney disease; N18.32 - Chronic kidney disease, stage 3b; Z79.4 - halfway (current) use of insulin (21) Hypothyroid: Status: Chronic Qualifiers: Hypothyroidism type: acquired Qualified Code(s): E03.9 - Hypothyroidism, unspecified Reason for Visit Reason for Visit: SEPSIS Hospital Course Hospital Course Rhett Cotto is a 79 year old male with a past medical history of CAD, CHF, type 2 diabetes mellitus, dyslipidemia, hypertension, was recently discharged from the hospital after management of diabetic foot ulcer status post debridement by Dr. Espinoza he was discharged on Omnicef 1 week regimen, patient refused SNF placement, he also was diagnosed with fracture of T8-T11 spinous process fracture after a fall, patient also refused home health services. Full- thickness ulcer of right calcaneal area, stage II pressure ulcer of medial aspect of left gluteal region, follows up with wound care clinic. Who presented to [facility] due to complaints of generalized weakness and fevers. He was found to have left lower extremity cellulitis, wound infection, gangrene, with evidence of osteomyelitis of the calcaneum with sepsis and bacteremia. Patient was initially managed with broad-spectrum antibiotic therapy, had debridement of wound and gangrene by Dr. Perez, cultures positive for Proteus, MRSA, Enterococcus, Proteus. Patient will be discharged to group home facility with plan for total of 6 weeks IV linezolid and unasyn with close follow-up with wound care, and infectious disease as outpatient. PICC line placed for antibiotics. For patient's peripheral arterial disease/critical limb ischemia, underwent peripheral angiogram, showed severe left Tibioperoneal trunk and anterior tibial artery stenosis, had successful revascularization with balloon angioplasty. Patient also has right sided severe disease that will be revascularized as a staged procedure, in the near future when able. On admission patient was found to have elevated troponins, had a positive stress test: -There is a large sized mostly fixed defect in the inferior wall with partial reversibility. This is consistent with prior infarct with singificant augustin- infarct ischemia in the RCA territory. Patient has reversible perfusion defect of the apical and apical inferior zepeda. This represents ischemia. Patient does have CKD, baseline creatinine 1.5, after discussion with patient of the options of peripheral angiogram and coronary angiography, and the importance of his left lower extremity osteomyelitis in terms of wound healing and optimal outcome, patient and team decided to perform peripheral angiogram first. After discussion with patient, outpatient follow-up and consideration of cardiac catheterization has been agreed upon, patient does want to have a second opinion at [facility]. He developed contrast induced nephropathy with peripheral angiogram and angioplasty so will be at high risk of further kidney injury with future contrast. Nephrology did feel there was a component of pre-renal volume depletion from diuresis contributing to contrast respone. For his CHF, ARB and diuretic therapy had to be held due to MICHAEL from contrast. Should be able to resume in next few days. Doses are noted in Instructions portion of discharge paperwork. He did receive a dose of IV diuresis the day prior to discharge with good urine output. Will need close monitoring of volume and renal status. EF 25-30% on echo 03/2020. Patient did have some new onset atrial fibrillation. Rate was generally controlled on low-dose metoprolol. He is often in sinus rhythm. Was started on Eliquis. Aspirin was stopped due to addition of Eliquis along with Plavix. Patient was hesitatant but ultimately agreeable to discharge to skilled facility for ongoing care while on antibiotics for osteomyelitis. He is stable for discharge today. Please see instructions for additional information regarding recommmended care at facility and follow up. Of note: -If Mr Cotto has chest pain he should be evaluated for transfer to the emergency room immediately -Patient has declined Life[facility] Any discrepancies in medication list above have to do with duplicates that were entered on initial list. Medications that are listed as continue or new are to be continued. I am speaking in particular about levothyroxine which shows is both continue and discontinue at same dose. Physical Exam Narrative: EXAM NARRATIVE: Awake and alert, cooperative with me in smiling although more in acquiesces to discharge plans. Lying flat in bed. PODUS boots intact. Some dry skin to the lower extremities, trace edema. Wounds were not evaluated today by me. Lungs are clear anteriorly, decreased a bit at the bases. Regular rhythm on current examination. Abdomen is soft, nondistended. Speech is a little slurred which is baseline for him. 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 He has scattered bruises from iatrogenic blood draws and such. Discharge Data Data Completed and Pending: Completed Studies During Hospitalization Category Date Time Status CXRP [XR chest 1V portable [id number]] R outine Exams 10/24/20 08:[address] MIBI [Sestamibi Stress Test Reque st Exams 10/23/20 07:11 Completed ] Routine XR chest 1V stephanie ble [id number] Routine Exams 10/21/20 14:29 Completed XR chest 1V stephanie ble [id number] Urgent Exams 10/17/20 20:18 Completed XR foot LT min 3V * [id number] Routine Exams 11/02/20 09:17 Completed XR foot RT 2V 736 20 Routine Exams 10/18/20 01:30 Completed NM pascual perf SPECT r/s* [id number] Routin e Nuc Med 10/23/20 07:11 [place] [id number] Rout ine Ultrasound 10/19/20 05:00 Completed US renal BI* [id number] 0 Routine Ultrasound 10/30/20 15:10 Completed Laboratory Last Values WBC 5.9 10^3/uL (4.0- 10.0) 11/02/20 04:05 RBC 2.99 10^6/uL (4.1 -5.3) L 11/02/20 04:05 Hgb 8.8 g/dL (11.7-16 .6) L 11/02/20 04:05 Hct 28.1 % (42.0-52.0 ) L 11/02/20 04:05 MCV 94.0 fL (80-94) 11/02/20 04:05 MCH 29.4 pg (28.0-34. 0) 11/02/20 04:05 MCHC 31.3 g/dL (30.0-3 6.0) 11/02/20 04:05 RDW 19.4 % (12.1-15.1 ) H 11/02/20 04:05 Plt Count 186 10^3/cmm (130 -400) 11/02/20 04:05 MPV 11.2 fL (7.4-10.4 ) H 11/02/20 04:05 Neut % (Auto) 60.3 % 11/02/20 04:05 Lymph % (Auto) 19.5 % 11/02/20 04:05 [place] % (Auto) 12.9 % 11/02/20 04:05 Eos % (Auto) 6.1 % 11/02/20 04:05 Baso % (Auto) 0.7 % 11/02/20 04:05 Neut # (Auto) 3.56 10^3/uL (1.8 -7.7) 11/02/20 04:05 Lymph # (Auto) 1.2 10^3/uL (0.8- 4.8) 11/02/20 04:05 [place] # (Auto) 0.8 10^3/uL (0.2- 0.9) 11/02/20 04:05 Eos # (Auto) 0.4 10^3/uL (0.0- 0.8) 11/02/20 04:05 Baso # (Auto) 0.0 10^3/uL (0.0- 0.1) 11/02/20 04:05 Nucleated RBC % (a uto) 0 % 11/02/20 04:05 Nucleated RBCs # 0.0 /100WBC 11/02/20 04:05 ESR 41 mm/hr (0-10) H 11/02/20 04:05 PT 17.80 SECONDS (12 .1-14.9) H 10/17/20 20:48 INR 1.42 (0.8-1.2) H 10/17/20 20:48 APTT 46.0 SECONDS (23. 9-36.7) H D 10/27/20 21:20 Sodium 138 mmol/L (136-1 45) 11/02/20 04:05 Potassium 4.2 mmol/L (3.5-5 .1) 11/02/20 04:05 Chloride 102 mmol/L (98-10 7) 11/02/20 04:05 Carbon Dioxide 25 mmol/L (22-29) 11/02/20 04:05 Anion Gap 15.2 (5-19) 11/02/20 04:05 BUN 28 mg/dL (8-23) H 11/02/20 04:05 Creatinine 2.3 mg/dL (0.7-1. 2) H 11/02/20 04:05 GFR Calculation Not Reportable 11/02/20 04:05 Glucose 96 mg/dL (65-115) 11/02/20 04:05 POC Glucose 185 mg/dL (70-110 ) H 11/02/20 11:00 Calculated Osmolal ity 291 mOsm/kg (285- 295) 11/02/20 04:05 Lactate 2.2 mmol/L (0.5-2 .2) 10/17/20 20:48 Uric Acid 11.7 mg/dL (3.4-7 .0) H 10/31/20 04:30 Calcium 8.4 mg/dL (8.5-10 .5) L 11/02/20 04:05 Phosphorus 3.5 mg/dL (2.5-4. 5) 11/02/20 04:05 Magnesium 1.8 mg/dL (1.7-2. 3) 11/02/20 04:05 Iron 40 ug/dL (59-158) L 10/31/20 04:30 TIBC 150 mcg/dl 10/31/20 04:30 % Saturation 26.6 % (20-50) 10/31/20 04:30 Unsat Iron Binding 110 ug/dL (112-34 7) L 10/31/20 04:30 Ferritin 233 ng/mL (30-400 ) 10/31/20 04:30 Total Bilirubin 0.5 mg/dL (0.15-1 .2) 11/02/20 04:05 AST 11 U/L (0-40) 11/02/20 04:05 ALT < 5 U/L (0-41) 11/02/20 04:05 Alkaline Phosphata se 126 IU/L (40-130) 11/02/20 04:05 Troponin T Gen 5 n g/L 139 ng/L (0-15) H* 10/22/20 06:51 Troponin T Baselin e 82 ng/L (0-15) H 10/21/20 14:45 Troponin T 120 [place] 82.73 ng/L (0-15) H 10/21/20 16:31 Delta Troponin T 0.73 ABS# (0-10) 10/21/20 16:31 Troponin T Hi Sens 6Hr 96.34 ng/L (0-15) H 10/21/20 21:02 Troponin T Hi Sens 6Hr Delta 14.34 ng/L (0-12) H* 10/21/20 21:02 C-Reactive Protein 59.8 mg/L (0.0-4. 9) H 10/17/20 20:48 Total Protein 6.2 g/dL (6.6-8.7 ) L 11/02/20 04:05 Albumin 3.0 g/dL (3.5-5.2 ) L 11/02/20 04:05 Globulin 3.2 g/dL (1.3-4.6 ) 11/02/20 04:05 25-OH Vitamin D To vivi 23 ng/mL (30-100) L 10/31/20 04:30 PTH Intact 158.3 pg/mL (15-6 5) H 10/31/20 04:30 Calcium (PTH Intac t) 8.1 mg/dL (8.5-10 .5) L 10/31/20 04:30 Urine Color Dark yellow (Yel low) 10/31/20 05:10 Urine Appearance Cloudy (CLEAR) 10/31/20 05:10 Urine pH 6.5 (5-7) 10/31/20 05:10 Ur Specific Gravit y 1.020 (1.005-1.0 30) 10/31/20 05:10 Urine Protein 2+ (Negative) H 10/31/20 05:10 Urine Glucose (UA) Norm (Normal) 10/31/20 05:10 Urine Ketones 1+ (Negative) H 10/31/20 05:10 Urine Blood 3+ (Negative) H 10/31/20 05:10 Urine Nitrate Positive (Negati ve) H 10/31/20 05:10 Urine Bilirubin 1+ (Negative) H 10/31/20 05:10 Urine Urobilinogen 4 mg/dL (Negative ) H 10/31/20 05:10 Ur Leukocyte Syeda ase 2+ (Negative) H 10/31/20 05:10 Urine RBC >100 /hpf (0-2) H 10/31/20 05:10 Urine WBC 15-25 /hpf (0-5) H 10/31/20 05:10 Ur Squamous Epith Cells 0-4 /hpf (0-5) H 10/31/20 05:10 Amorphous Sediment Not Reportable 10/31/20 05:10 Urine Bacteria 1+ /hpf (NONE) H 10/31/20 05:10 Urine Mucus N /hpf 10/20/20 02:55 Urine Yeast 2+ /hpf H 10/20/20 02:55 Ur Random Sodium < 10 mmol/L 10/31/20 05:10 Ur Random Potassiu m 72 mmol/L 10/31/20 05:10 Ur Random Chloride < 10 mmol/L 10/31/20 05:10 Vancomycin Trough 25.1 ug/mL (10-15 ) H 10/29/20 12:22 Random Vancomycin 14.9 ug/mL (20.0- 40.0) L 11/01/20 04:03 Nasal/Oral COVID-1 9 PCR Not detected 10/19/20 17:45 Hepatitis C Antibo dy Non-reactive (No nreactive) 10/29/20 12:22 Influenza Type A A g Negative (Negati ve) 10/17/20 21:18 Influenza Type B A g Negative (Negati ve) 10/17/20 21:18 SARS-CoV-2 Ag (Rap id) Negative (Negati ve) 11/02/20 04:00 Vitals: Last Vital Signs Temp 97.6 F 11/02/20 11:04 Pulse 62 11/02/20 11:04 Resp 18 11/02/20 11:04 BP 123/70 11/02/20 11:04 Pulse Ox 95 11/02/20 11:04 Discharge Plan Discharge Patient Disposition: Xfer SNF Condition: Stable Prescriptions: New atorvastatin 40 mg Tablet 40 mg PO BEDTIME 30 Days Qty: 30 RF: 0 clopidogrel 75 mg Tablet 75 mg PO DAILY 30 Days Qty: 30 RF: 0 Novolog U-100 Insulin aspart 100 unit/mL Solution See Rx Instructions .ROUTE .COMPLEX Qty: 10 RF: 0 metoprolol tartrate 25 mg Tablet 12.5 mg PO BID@0900,2100 30 Days Qty: 60 RF: 0 nitroglycerin 0.4 mg Tablet, Sublingual 0.4 mg sublingual Q5M PRN (Reason: Chest Pain) 30 Days Qty: 30 RF: 0 polyethylene glycol 3350 17 gram Powder In Packet 17 g PO DAILY 30 Days Qty: 30 RF: 0 acetaminophen 325 mg Tablet 325 - 650 mg PO Q4H PRN (Reason: Mild Pain Or Increase Temp) Qty: 60 RF: 0 allopurinol 100 mg Tablet 100 mg PO DAILY Qty: 30 RF: 0 Unasyn 15 gram recon soln 1.5 g IV Q12H 28 Days RF: 0 Vitamin D2 1,250 mcg (50,000 unit) Capsule 50,000 unit PO Q7D Qty: 4 RF: 0 Zyvox 600 mg/300 mL Piggyback 600 mg IV Q12H 28 Days RF: 0 Lactobacillus acidoph-L.bulgar 1 million cell Tablet 1 tab PO BID Qty: 60 RF: 0 Stool Softener-Laxative 8.6-50 mg Tablet 1 tab PO DAILY Qty: 30 RF: 0 HySept 0.25 % Solution 1 applic topical 0900,2100 Qty: 473 RF: 0 Continued spironolactone 25 mg tablet 25 mg PO DAILY RF: 0 omeprazole 20 mg capsule,delayed release(DR/EC) 20 mg PO DAILY 28 Days RF: 0 hydrocodone-acetaminophen 5-325 mg tablet 1 tab PO Q6H PRN (Reason: Pain) RF: 0 levothyroxine 75 mcg tablet 150 mcg PO DAILY RF: 0 Discontinued aspirin 81 mg Tablet,Chewable 81 mg PO DAILY RF: 0 furosemide 40 mg tablet 40 mg PO BID 30 Days Qty: 0 RF: 0 Hold Instructions: Resume on 10/30/20. hold until friday , recheck bmp, if cr looks <1.5 then i would resume lasix metformin 500 mg tablet extended release 24 hr 500 mg PO BID RF: 0 potassium chloride 10 mEq tablet extended release 20 meq PO BID RF: 0 Hold Instructions: Resume on 10/30/20. hold with lasix levothyroxine 150 mcg tablet 150 mcg PO DAILY RF: 0 Discharge Orders: Discharge Order (Routine); Ordered 11/02/20 Ordered By: Coby Miner Other Ambulatory Orders: Basic Metabolic Panel (Routine) Timeframe: 1 Week Location: Determined by Patient Ordered By: Coby Miner Basic Metabolic Panel (Routine) Timeframe: 2 Days Location: Determined by Patient Ordered By: Coby Miner Referrals: [facility] [Other] Hiwot Trejo MD [Hospitalist] - 12/12/20 1:00 pm (LLE osteomyelitis and bacteremia; Dr Trejo is an Infectious Disease physician at [facility]) Stewart Barfield MD [Physician] - 11/16/20 12:45 pm Jose Manuel Mooney MD [Primary Care Provider] - 11/09/20 9:30 am [facility]OUND [facility]ARE [facility], [Staff Physician] - 11/07/20 2:00 pm (LLE cellultis, osteo) Discharge Diet: Cardiac and Diabetic Discharge Activity: As per PT/OT instructions Activity Restrictions/Additional Instructions: For your wound care to left lower extremity (cellulitis, ulcer and osteomyelitis): -Will need to offload bilateral heels at all times while at rest, PODUS boots will need to be utilized -Quarter percent [place] solution wet to dry dressing change 3 times daily left heel wound -Silver alginate to right heel wound once daily dressing change -Referral made to wound care as well as follow up with Infectious Disease (Dr Trejo) -ESR initially 112, down to 41 on 11/02 -Images from wound evaluation on 11/01 are included in packet sent with patient For antibiotics -Linezolid 1 gram IV q 12 hours x 4 week AND Unasyn 1.5 grams IV q12 hours x 4 weeks. Please change Unasyn to 1.5 grams IV q 8hrs once GRF > 30 -PICC line in place for IV antibiotics, follow routine PICC line care, may discontinue line when IV antibiotics completed and has been cleared by infectious disease and wound care Had initally been on vancomycin and augmentin, but coverage adjusted after review of all cultures, keeping in mind renal function. Also received a course of diflucan for yeast in urine Regarding renal function: -Baseline creatinine around 1.5-1.6 -With contrast induced nephropathy and pre-renal status, peak creatine 4.0 on 09/30 -Creatinine at discharge 2.3 with good urine output -DUE TO RENAL DYSFUNCTION, multiple medications held or dose adjusted; will need to adjust doses for improvement in renal function and evaluate appropriateness to resume the following: lasix 40mg po bid (prior home med) potassium 20 meq po bid (prior home med) spironolactone 25mg po daily (prior home med) eliquis 2.5 mg bid (new medication, increase to 5 mg bid when renal function allows, on for atrial fibrillation Losartan 25 mg po daily (new med, held due to renal dysfunction, EF 25-30% echo 03/2020, moderate;reduced on perfusion imaging this stay) metformin 500mg po bid (prior home med) -Suggest at least weekly BMP while medications are re-instituted status post acute kidney injury Regarding peripheral arterial disease: -Take Plavix and statin as prescribed -Underwent balloon angioplasty of tibioperoneal trunk and anterior tibial with excellent results -Please follow-up with cardiology For your new onset atrial fibrillation: -Started on eliquis, dose will need adjusted as renal function improves -Aspirin has been stopped -On metoprolol For your positive stress test, ischemic cardiomyopathy and known ASHD: -Stress test showed inferior wall infarct with some augustin-infarct ischemia and small area of ischemia of the apical wall however patient was chest pain free and critical limb ischemia was addressed preferentially during this stay -Will need outpatient follow-up with cardiology for continued medical management and consideration for possible invasive evaluation pending renal recovery. -Once creatinine below 2.0 may resume lasix and potassium with frequent electrolyte checks initially to ensure tolerating medications. Has previously also been on spironolactone which can be resumed as needed after establish doing okay on lasix. When this is resumed, please monitor potassium closely with recnet MICHAEL. For diabetes: -Home metformin held, on sliding scal insulin with meals Other: -PT/OT to evaluate and treat -Full code Discharge Attestations Time Spent in Discharge Care*: greater than 30 min Specific Discharge Activities: educating patient, educating and/or supporting family/caregiver, discussing with rehabilitation caseworker/social workers/dc planners, documenting/other paperwork and evaluating patient/reviewing data Status at Discharge: Cognitive status at discharge: cognitively intact , Behavioral status at discharge: cooperative , Functional status at discharge: other (Predominantly lies in bed, working on increasing function) Overall status at discharge: patient is not back to baseline Quality Metrics Clinical Quality Measures During this hospital stay, did patient experience: None Coding Level of Care Code Acute [facility] DC note Diagnoses Sepsis A41.9 Sepsis type: sepsis due to unspecified organism Sepsis acute organ dysfunction status: unspecified Osteomyelitis M86.272 Osteomyelitis type: subacute Osteomyelitis location: foot Laterality: left Enterococcus faecalis infection B95.2 MRSA (methicillin resistant Staphylococcus aureus) infection A49.02 Proteus infection A49.8 Anaerobic bacteremia R78.81 Critical lower limb ischemia I70.229 S/P peripheral artery angioplasty Z98.62 Peripheral arterial disease I73.9 Non-pressure chronic ulcer of other part of right foot with necrosis of bone L97.514 New onset a-fib I48.91 Elevated troponin R77.8 Ischemic cardiomyopathy I25.5 ASHD (arteriosclerotic heart disease) I25.10 Contrast dye induced nephropathy N14.1; T50.8X5A CKD (chronic kidney disease) N18.3 Chronic kidney disease stage: stage 3 (moderate) Anemia N18.9; D63.1 Anemia type: due to chronic kidney disease Chronic kidney disease stage: unspecified stage HTN (hypertension) I10 Hypertension type: essential hypertension Dyslipidemia E78.5 Type 2 diabetes mellitus E11.22; N18.32; Z79.4 Diabetes mellitus mcfp insulin use: with real estate closer use Diabetes mellitus complication status: with kidney complications Diabetes mellitus complication detail: with chronic kidney disease Chronic kidney disease stage: stage 3 (moderate) Chronic kidney disease stage 3 subtype: stage 3b (GFR 30-44) Hypothyroid E03.9 Hypothyroidism type: acquired
== END 2020-11-02 16:14 | disposition skilled nursing facility (03) | DRG 854 ==
LOC: ER 22:42 → MEDSURG 22:59 → CSU 10-27 18:07 → MEDSURG 11-02 08:33
PROVIDERS: Family Medicine; Internal Medicine; Internal Medicine Nephrology; Podiatrist Foot & Ankle Surgery; Admitting Provider Internal Medicine; Emergency Provider Emergency Medicine; PCP Family Medicine; Visit Provider Hospitalist
PROC: 0QBM0ZZ Excision of Left Tarsal, Open Approach (ICD-10-PCS; principal; 2020-10-20 10:15)
PROC: 047N3Z1 Dilation of Left Popliteal Artery using Drug-Coated Balloon, Percutaneous Approach (ICD-10-PCS; principal; 2020-10-27 16:00)
PROC: 047N3Z1 Dilation of Left Popliteal Artery using Drug-Coated Balloon, Percutaneous Approach (ICD-10-PCS; 2020-10-27 16:00)
DX: A41.9 Sepsis, unspecified organism (principal); E11.52 Type 2 diabetes mellitus with diabetic peripheral angiopathy with gangrene; I13.0 Hypertensive heart and chronic kidney disease with heart failure and stage 1 through stage 4 chronic kidney disease, or unspecified chronic kidney disease; I96 Gangrene, not elsewhere classified; M86.272 Subacute osteomyelitis, left ankle and foot; L97.426 Non-pressure chronic ulcer of left heel and midfoot with bone involvement without evidence of necrosis; L97.419 Non-pressure chronic ulcer of right heel and midfoot with unspecified severity; L03.116 Cellulitis of left lower limb; L03.115 Cellulitis of right lower limb; E87.1 Hypo-osmolality and hyponatremia; N17.9 Acute kidney failure, unspecified; N39.0 Urinary tract infection, site not specified; B37.49 Other urogenital candidiasis; E11.69 Type 2 diabetes mellitus with other specified complication; E11.22 Type 2 diabetes mellitus with diabetic chronic kidney disease; E11.65 Type 2 diabetes mellitus with hyperglycemia; E11.42 Type 2 diabetes mellitus with diabetic polyneuropathy; N18.32 Chronic kidney disease, stage 3b; I50.9 Heart failure, unspecified; E11.621 Type 2 diabetes mellitus with foot ulcer; L89.152 Pressure ulcer of sacral region, stage 2; I25.10 Atherosclerotic heart disease of native coronary artery without angina pectoris; Z98.61 Coronary angioplasty status; E78.5 Hyperlipidemia, unspecified; I25.2 Old myocardial infarction; E03.9 Hypothyroidism, unspecified; D63.1 Anemia in chronic kidney disease; R07.9 Chest pain, unspecified; I27.20 Pulmonary hypertension, unspecified; I25.5 Ischemic cardiomyopathy; N14.1 Nephropathy induced by other drugs, medicaments and biological substances; T50.8X5A Adverse effect of diagnostic agents, initial encounter; S22.069D Unspecified fracture of T7-T8 vertebra, subsequent encounter for fracture with routine healing; S22.079D Unspecified fracture of T9-T10 vertebra, subsequent encounter for fracture with routine healing; S22.089D Unspecified fracture of T11-T12 vertebra, subsequent encounter for fracture with routine healing; W19.XXXD Unspecified fall, subsequent encounter; I48.91 Unspecified atrial fibrillation; R94.39 Abnormal result of other cardiovascular function study; L27.0 Generalized skin eruption due to drugs and medicaments taken internally; T37.3X5A Adverse effect of other antiprotozoal drugs, initial encounter; R47.89 Other speech disturbances; B96.4 Proteus (mirabilis) (morganii) as the cause of diseases classified elsewhere; B95.2 Enterococcus as the cause of diseases classified elsewhere; B95.62 Methicillin resistant Staphylococcus aureus infection as the cause of diseases classified elsewhere
CPT/HCPCS: 36415; 36416; 36569; 36592; 37228; 51702; 51798; 71045; 73620; 73630; 75625; 75716; 76770; 78452; 80048; 80053; 80202; 81001; 82306; 82310; 82436; 82728; 82962; 83540; 83550; 83605; 83735; 83970; 84100; 84133; 84300; 84484; 84550; 85025; 85610; 85651; 85730; 86140; 86803; 87040; 87070; 87075; 87077; 87086; 87176; 87186; 87205; 87426; 87635; 87804; 92610; 93005; 93017; 93925; 94640; 96365; 96367; 96372; 96374; 97110; 97161; 97530; 99285; A9500; C1725; C1769; C1887; C1894; J0295; J0692; J0743; J0878; J1170; J1450; J1644; J1815; J1940; J2020; J2250; J2270; J2405; J2543; J2704; J2785; J3010; J3370; J3490; J7030; J7050; Q0163; Q3014; Q4081; Q9967; S0030

== ENCOUNTER 2020-11-05 20:39 | Inpatient (IN) | payer MEDICARE, SELFPAY ==
[2020-11-05 20:39] VITALS: BP 144/79; PULSE 51; RESP 18; TEMP 36.8; O2SAT 99; BMI 25.8
[2020-11-05 20:52] VITALS: BP 153/83; PULSE 54; RESP 17; O2SAT 99
--- NOTE | 2020-11-05 20:59 | XRR_ITS ---
PROCEDURE INFORMATION: Exam: XR Chest Exam date and time: 11/05/2020 9:08 PM Age: 79 years old Clinical indication: Other: Reduced breath sounds TECHNIQUE: Imaging protocol: XR of the chest. Views: 1 view. COMPARISON: CR XR chest 1V portable [id number] 10/24/2020 10:07 AM FINDINGS: Tubes, catheters and devices: A right arm PICC is present with the tip projecting in the SVC. Lungs: There is subsegmental atelectasis in the lung bases. The costophrenic angles are blunted which may indicate small effusions. Pleural spaces: See Lungs finding. Heart/Mediastinum: The cardiac silhouette is enlarged but unchanged. Bones/joints: Unremarkable. XR/XR chest 1V portable [id number] IMPRESSION: 1. Satisfactory PICC position in the SVC. 2. Stable cardiomegaly. 3. Mild subsegmental basilar atelectasis and probable small effusions.
--- NOTE | 2020-11-05 21:01 | ECG_ITS ---
[facility] Test Date: 2020-11-05 Pat Name: Rhett Cotto Department: Room: 107 Gender: Male Preparer Making Department: : 1940 Requested By: Audi Florian Order Number: [id number] Russ MD: Donna Navarrete M.D. Measurements Intervals [place] Rate: 54 P: SD: QRS: -39 QRSD: 149 T: 180 QT: 442 QTc: 421 Interpretive Statements ATRIAL FIBRILLATION WITH SLOW VENTRICULAR RESPONSE LEFT AXIS DEVIATION [QRS AXIS < -30] LEFT BUNDLE BRANCH BLOCK [120+ ms QRS DURATION, 80+ ms Q/S IN V1/V2, 85+ ms R IN I/aVL/V5/V6] Compared to ECG 10/27/2020 22:48:33 Left-axis deviation now present Left bundle-branch block now present Ventricular premature complex(es) no longer present Aberrant conduction of supraventricular beat(s) no longer present Intraventricular conduction delay no longer present Myocardial infarct finding no longer present Electronically Signed On 11-07-2020 12:23:17 CDT by Donna Navarrete M.D. [id number]
[2020-11-05 21:17] LABS: Basophils # 0.1 10^3/uL (0.0-0.1); Basophils % 0.8 %; Eosinophils # 0.3 10^3/uL (0.0-0.8); Eosinophils % 4.5 %; Hematocrit 30.3 % (42.0-52.0); Hemoglobin 9.6 g/dL (11.7-16.6); Lymphocytes # 1.5 10^3/uL (0.8-4.8); Lymphocytes % 24.3 %; Mean Corpuscular HGB Conc 31.7 g/dL (30.0-36.0); Mean Corpuscular Hemoglobin 29.5 pg (28.0-34.0); Mean Corpuscular Volume 93.2 fL (80-94); Mean Platelet Volume 11.3 fL (7.4-10.4); Monocytes # 0.7 10^3/uL (0.2-0.9); Monocytes % 10.7 %; Neutrophils # 3.61 10^3/uL (1.8-7.7); Neutrophils % 59.5 %; Nucleated Red Blood Cells % 0 %; Platelet Count 230 10^3/cmm (130-400); Red Blood Count 3.25 10^6/uL (4.1-5.3); Red Cell Distribution Width 19.8 % (12.1-15.1); White Blood Count 6.1 10^3/uL (4.0-10.0)
[2020-11-05 21:23] LABS: D Dimer 1.16 ug/mIFEU (0-0.59)
[2020-11-05 21:27] LABS: Lactate (Lactic Acid level) 2.2 mmol/L (0.5-2.2)
[2020-11-05 21:28] LABS: Troponin(5th) Baseline 96 ng/L (0-15)
[2020-11-05 21:45] LABS: Alanine Aminotransferase 7 U/L (0-41); Albumin Level 3.4 g/dL (3.5-5.2); Alkaline Phosphatase 146 IU/L (40-130); Anion Gap 14.2 (5-19); Aspartate Amino Transferase 13 U/L (0-40); Blood Urea Nitrogen 11 mg/dL (8-23); Calcium 8.2 mg/dL (8.5-10.5); Carbon Dioxide 26 mmol/L (22-29); Chloride 99 mmol/L (98-107); Creatine Phosphokinase 23 U/L (39-308); Creatinine Clr Calc Pharmacy 54.8663; Globulin 2.7 g/dL (1.3-4.6); Glucose 152 mg/dL (65-115); NT Pro B Type Natriuretic Pept 6702 pg/mL (0-450); Osmolality Calculated 282 mOsm/kg (285-295); Potassium 4.2 mmol/L (3.5-5.1); Sodium 135 mmol/L (136-145); Total Bilirubin 0.5 mg/dL (0.15-1.2); Total Protein 6.1 g/dL (6.6-8.7)
--- NOTE | 2020-11-05 22:03 | PM.HP ---
Providers/Chief Complaint Primary Care Provider: Jose Manuel Mooney MD Chief Complaint: weakness History of Present Illness Rhett Cotto is a 79 year old male who has had multiple admissions secondary to management of diabetic foot ulcer, venous stasis dermatitis full-thickness ulcer of left heel, exposed bone, right heel wound with granulation, other medical conditions such as CHF, coronary disease, was recently discharged from the hospital after management of foot gangrene osteomyelitis of calcaneum, sepsis and bacteremia, status post debridement by Dr. Perez culture positive for Proteus, MRSA and Enterococcus, PICC line was placed for 6 weeks regimen of linezolid and Unasyn, for patient's peripheral vascular disease he underwent peripheral angiogram which showed severe tibioperoneal trunk and anterior tibial artery stenosis with successful revascularization with balloon angioplasty, also has right-sided severe disease which will be revascularized as a staged procedure. He has chronic kidney disease baseline creatinine 1.5, peripheral angiogram was preferred because of his active ulcer gangrene and osteomyelitis, however he will need cardiac catheterization secondary to a positive stress test which was done because of elevated troponin, after the angiogram he developed contrast-induced nephropathy, also developed new onset A. fib, was started on Eliquis, aspirin was held. Patient was refusing group home home and home health services however ultimately agreed for skilled facility for ongoing care however he signed himself AGAINST MEDICAL ADVICE yesterday and Dr. Miner was notified, Zyvox and Augmentin prescriptions were sent to [facility] pharmacy. Patient is stating that he has not taken his antibiotics and his asked him to go to the hospital. He is denying any chest pain, shortness of breath, fever he is agreeable to go to [facility]. He is endorsing weakness and lethargy no any other complaints Review of Systems Const: Reports: chills, fatigue and malaise; Denies: fever(s) Eyes: Denies: change in vision ENMT: Denies: throat pain Card: Reports: dyspnea on exertion; Denies: chest pain Resp: Reports: dyspnea GI: Denies: abdominal pain : Denies: flank pain Musc: Denies: neck pain Skin/Breast: Reports: new lesions and lesions Neuro: Denies: headache(s) Psych: Denies: anxiety Endo: Denies: polyuria Rudi/Lymph: Denies: easy bruising All/Imm: Denies: urticaria Medications/Allergies Home Medications Medication Instructions Recorded Confirmed Last Taken Type spironolactone 25 mg PO DAILY 08/28/20 10/17/20 10/17/20 History hydrocodone-acetaminophen 1 tab PO Q6H PRN 10/17/20 10/17/20 Unknown History levothyroxine 150 mcg PO DAILY 10/17/20 10/17/20 Unknown History atorvastatin 40 mg PO BEDTIME 30 Days #30 tab 10/28/20 Unknown Rx clopidogrel 75 mg PO DAILY 30 Days #30 tab 10/28/20 Unknown Rx insulin aspart U-100 [Novolog See Rx Instructions .ROUTE 10/28/20 Unknown Rx U-100 Insulin aspart] .COMPLEX #10 ml metoprolol tartrate 12.5 mg PO BID@0900,2100 30 Days 10/28/20 Unknown Rx #60 tab nitroglycerin 0.4 mg SUBLINGUAL Q5M PRN 30 Days 10/28/20 Unknown Rx #30 tab polyethylene glycol 3350 17 g PO DAILY 30 Days #30 ea 10/28/20 Unknown Rx Lactobacillus acidoph-L.bulgar 1 tab PO BID #60 tab 11/02/20 Unknown Rx acetaminophen 325 - 650 mg PO Q4H PRN #60 tab 11/02/20 Unknown Rx allopurinol 100 mg PO DAILY #30 tab 11/02/20 Unknown Rx ampicillin-sulbactam [Unasyn] 1.5 g IV Q12H 28 Days ea 11/02/20 Unknown Rx ergocalciferol (vitamin D2) 50,000 unit PO Q7D #4 cap 11/02/20 Unknown Rx [Vitamin D2] linezolid in dextrose 5% [Zyvox] 600 mg IV Q12H 28 Days ml 11/02/20 Unknown Rx sennosides-docusate sodium [Stool 1 tab PO DAILY #30 tab 11/02/20 Unknown Rx Softener-Laxative] sodium hypochlorite [HySept] 1 applic TOPICAL 0900,2100 #473 ml 11/02/20 Unknown Rx amoxicillin-pot clavulanate 1 tab PO BID 28 Days #56 tab 11/04/20 Unknown Rx [Augmentin] linezolid [Zyvox] 600 mg PO BID 28 Days #56 tab 11/04/20 Unknown Rx Allergies Allergy/AdvReac Type Severity Reaction Status Date / Time metronidazole [From Flagyl] Allergy ALGY-Rash Verified 10/22/20 10:13 PFSH Acute PFSH: Medical History Anaerobic bacteremia Anemia ASHD (arteriosclerotic heart disease) Atrial fibrillation Cardiomyopathy CHF (congestive heart failure) Cleft palate and cleft lip Diabetes Dyslipidemia Enterococcus faecalis infection HTN (hypertension) Hypothyroid MRSA (methicillin resistant Staphylococcus aureus) infection Myocardial infarction Peripheral arterial disease Proteus infection Surgical History Cleft palate Surgically repaired History of tonsillectomy Leg fracture, left Lower leg fractures repaired with rods and bone grafts S/P peripheral artery angioplasty (~10/2020) S/P PTCA (percutaneous transluminal coronary angioplasty) Family History Other Diabetes Social History Smoking and tobacco status: never smoked Alcohol intake: current Alcohol intake frequency: holidays/special occasions only Household members: spouse Marital status: Vitals/I&O/Wt Last Vital Signs Temp 98.2 F 11/05/20 20:39 Pulse 54 L 11/05/20 20:52 Resp 17 11/05/20 20:52 BP 153/83 11/05/20 20:52 Pulse Ox 99 11/05/20 20:52 Weight last 48 hrs Weight 81.647 kg Physical Exam Narrative: EXAM NARRATIVE: elderly male was laying supine without any active discomfort No active chest pain or shortness of breath Currently saturating well on room air Variable S1-S2, systolic murmur appreciated grade 2/6 Mild signs of fluid overload with bilateral lower extremity edema 2+, left lower extremity more swollen as compared to right Full-thickness heel ulcer of left side with exposure to bone, right heel round shape open ulcer with exposure to subcutaneous tissue and fat no active purulent drainage, Dorsalis pedis pulses 1+ bilaterally Venous stasis dermatitis Abdomen distended no active tenderness Bilateral breath sounds no audible stridor or wheezing Appropriate mood and affect Data : 11/05/20 20:53 11/05/20 20:53 Micro: Microbiology 11/05/20 21:43 Blood Culture - Preliminary Blood SPECIMEN COLLECTED 11/05/20 21:10 Blood Culture - Preliminary Blood SPECIMEN COLLECTED A&P Assessment and plan (1) Non-pressure chronic ulcer of other part of right foot with necrosis of bone: Status: Acute (2) Osteomyelitis: Status: Acute (3) Peripheral arterial disease: Status: Chronic (4) Hypothyroid: Status: Chronic Qualifiers: Hypothyroidism type: acquired Qualified Code(s): E03.9 - Hypothyroidism, unspecified (5) Contrast dye induced nephropathy: Status: Acute (6) Ischemic cardiomyopathy: Status: Chronic (7) Type 2 diabetes mellitus: Status: Chronic Qualifiers: 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 insulin use: with long chain dyeing machine operator use Diabetes mellitus complication status: with kidney complications Diabetes mellitus complication detail: with chronic kidney disease Chronic kidney disease stage: stage 3 (moderate) Chronic kidney disease stage 3 subtype: stage 3b (GFR 30-44) Qualified Code(s): E11.22 - Type 2 diabetes mellitus with diabetic chronic kidney disease; N18.32 - Chronic kidney disease, stage 3b; Z79.4 - 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) use of insulin (8) Anaerobic bacteremia: Status: Acute (9) Proteus infection: Status: Acute (10) MRSA (methicillin resistant Staphylococcus aureus) infection: Status: Acute (11) Enterococcus faecalis infection: Status: Acute Additional A&P Information Osteomyelitis of left calcaneal area Patient was discharged on IV antibiotics however he signed himself AGAINST MEDICAL ADVICE from the senior living, Zyvox and Unasyn prescription was sent which she has not taken so far, I would start him on IV Zyvox 600 mg every 12 along Unasyn 1.5 g every 12 regimen He is afebrile, no active signs of sepsis Contrast-induced nephropathy Current creatinine is 1.2 which is improved significantly from baseline creatinine 1.5 Mild signs of fluid overload Peripheral arterial disease status post balloon angioplasty Bilateral diabetic foot ulcers showing granulation tissue, dorsalis pedis pulses 1+ bilaterally No active signs of ischemia or gangrene Ischemic cardiomyopathy with positive stress test Elevated troponin, no active chest pain EKG without ischemic or infarctive change, A. fib without RVR, heart rate 54 He might benefit from cardiac cath as his creatinine has improved on this visit, kindly reevaluate and consult cardiology A. fib without RVR We will switch him to Lovenox in case he would go for cardiac cath, hold Eliquis and keep metoprolol tartrate twice a day regimen Consistent carb diet Moderate sliding scale DVT prophylaxis not indicated Full code Attestations Medical Necessity Statement*: Anticipating discharge to [facility] within 48 hours if he decides to go with cardiac cath his clinical stay might prolong Time Spent in Patient Care: (>than 50% of time spent in counselling and/or direct pt care on unit). 40mins Coding Level of Care Code Acute Weights And Measures Sealer for g Fwd Diagnoses Non-pressure chronic ulcer of other part of right foot with necrosis of bone L97.514 Osteomyelitis M86.9 Peripheral arterial disease I73.9 Hypothyroid E03.9 Hypothyroidism type: acquired Contrast dye induced nephropathy N14.1; T50.8X5A Ischemic cardiomyopathy I25.5 Type 2 diabetes mellitus E11.22; N18.32; Z79.4 Diabetes mellitus longterm insulin use: with long chain dyeing machine operator use Diabetes mellitus complication status: with kidney complications Diabetes mellitus complication detail: with chronic kidney disease Chronic kidney disease stage: stage 3 (moderate) Chronic kidney disease stage 3 subtype: stage 3b (GFR 30-44) Anaerobic bacteremia R78.81 Proteus infection A49.8 MRSA (methicillin resistant Staphylococcus aureus) infection A49.02 Enterococcus faecalis infection B95.2
[2020-11-05] MEDS: ampicillin-sulbactam 1.5 GM in sodium chloride 0.9% (plus) 50 ML IV (22:31)
[2020-11-05 22:33] VITALS: PULSE 62; RESP 16; O2SAT 99
[2020-11-05 22:38] VITALS: BP 129/83; PULSE 59; RESP 16; O2SAT 17
--- NOTE | 2020-11-05 22:54 | W.ED.WEAKNES ---
HPI - Weakness General: Chief complaint: Weakness Stated complaint: weakness Time Seen by Provider: 11/05/20 20:44 History of Present Illness: HPI Narrative: The patient is a 79-year-old male with past medical history coronary artery disease, CHF, type 2 diabetes, myocardial infarction, hypertension. He was admitted here for 2 weeks and discharged only a few days ago where he was sent to a skilled nursing for further treatment of osteomyelitis of his left heel ulcer that has invaded into the calcaneus bone. Also during the admission he developed elevated troponins and had critical limb ischemia which was stented. He signed out AGAINST MEDICAL ADVICE from the skilled nursing a few days ago and has been without his antibiotics. Also he began to feel weak yesterday which is worse today which is why he presented to the ER. He denies chest pain and shortness of breath as well as focal neurologic deficits however he does feel generally weak. MD Complaint: generalized weakness and lack of energy Onset (ago): day(s) (3) Duration: constant Location: generalized Severity: moderate Relieving factors: none Exacerbating factors: none Associated symptoms: Denies chest pain, confusion or headache(s) Review of Systems General: Reports: 10 or more systems reviewed and unremarkable except in HPI and below Const: Denies: fatigue Eyes: Denies: change in vision, blurry vision or eye redness ENMT: Denies: throat pain, swelling of lips/tongue, ear or mastoid pain or nasal congestion Card: Denies: chest pain, palpitations, irregular heart rhythm, edema, dyspnea on exertion or orthopnea Resp: Denies: dyspnea, productive cough or non-productive cough GI: Denies: abdominal pain, diarrhea or GI cramping : Denies: flank pain, urinary frequency or urinary urgency Musc: Denies: neck pain, back pain, extremity pain, joint pain, joint redness, limited range of motion or muscle weakness Skin/Breast: Reports: lesions (Bilateral heel ulcers); Denies: rash, pruritus, erythema, skin pain or skin tenderness Neuro: Denies: headache(s), numbness in extremities, weakness in extremities, sensory changes, difficulty walking, dizziness, confusion or Slurred speech present Psych: Denies: anxiety or depression Endo: Denies: polyuria All/Imm: Denies: urticaria, throat swelling or tongue swelling PFSH ED PFSH: Medical History (Updated 11/05/20 @ 23:04 by Audi Florian MD) Anaerobic bacteremia Anemia ASHD (arteriosclerotic heart disease) Atrial fibrillation Cardiomyopathy CHF (congestive heart failure) Cleft palate and cleft lip Diabetes Dyslipidemia Enterococcus faecalis infection HTN (hypertension) Hypothyroid MRSA (methicillin resistant Staphylococcus aureus) infection Myocardial infarction Peripheral arterial disease Proteus infection Surgical History (Updated 11/02/20 @ 12:04 by Coby Miner MD) Cleft palate Surgically repaired History of tonsillectomy Leg fracture, left Lower leg fractures repaired with rods and bone grafts S/P peripheral artery angioplasty (~10/2020) S/P PTCA (percutaneous transluminal coronary angioplasty) Family History Other Diabetes Social History Smoking and tobacco status: never smoked Alcohol intake: current Alcohol intake frequency: holidays/special occasions only Household members: spouse Marital status: Physical Exam Const: COMMON NORMALS: no acute distress, average body habitus, patient oriented x3, no limitations, healthy appearing, alert and well nourished GENERAL APPEARANCE: cooperative, comfortable, well kempt and well developed ORIENTATION/CONSCIOUSNESS: Yes awake, Yes oriented to person, Yes oriented to place and Yes oriented to time HENMT: COMMON NORMALS: normocephalic, external ears normal and Normal external nose present HEAD & SCALP: normal to inspection and normocephalic NOSE: Normal external nose present EXTERNAL EAR: Yes external ears normal MOUTH: Normal oral and palatal mucosa present THROAT: posterior oropharynx normal Eye: COMMON NORMALS: Equal, round and reactive pupils present and EOMs intact bilaterally GENERAL EYE: appearance normal, both eyes and all related structures PUPIL: Yes Equal, round and reactive pupils present Neck/C-Spine: COMMON NORMALS: full ROM, no lymphadenopathy, no meningeal signs and no JVD GENERAL: Yes normal visual inspection Lymph: LYMPHATIC: no lymphadenopathy noted Chest: COMMONS NORMALS: normal inspection of the chest and normal palpation of entire chest wall Resp: COMMON NORMALS: normal respiratory effort, No retractions, No use of accessory muscles, clear to auscultation bilaterally and percussion normal EFFORT & INSPECTION: Yes able to speak in complete sentences AUSCULTATION: clear to auscultation bilaterally PERCUSSION: percussion normal Cardio: COMMON NORMALS: no JVD, regular rate, regular rhythm, S1 normal heart sound present, S2 normal heart sound present and Peripheral pulses 2+ throughout RATE: regular rate RHYTHM: regular rhythm HEART SOUNDS: S1 normal heart sound present and S2 normal heart sound present PERIPHERAL PULSES: Peripheral pulses 2+ throughout GI: COMMON NORMALS: Normal to inspection, nondistended, normoactive bowel sounds present, Soft to palpation, non-tender and no masses INSPECTION: Yes normal to inspection PALPATION: Yes Soft to palpation : COMMON NORMALS: Yes no CVA tenderness BLADDER/KIDNEY EXAM: Yes no CVA tenderness Back/Pelvis: COMMON NORMALS: no CVA tenderness, thoracic and lumbar spine normal to inspection, no thoracic nor lumbar tenderness and thoraco-lumbar ROM normal Extremity: COMMON NORMALS: normal to inspection, full ROM, capillary refill normal, no joint enlargement and no pedal edema NARRATIVE EXTREMITY EXAM: He has ulcers to both of his heels. The right is more superficial and the left is advanced and has a greater chronicity. This is where he has the osteomyelitis. GENERAL: Yes normal exam except as noted Neuro: COMMON NORMALS: patient oriented x3, CN's II-XII intact bilaterally, moves all extremities, no focal motor deficits, no sensory deficits noted and gait normal SENSORIUM/ORIENTATION: Yes alert, Yes oriented to person, Yes oriented to place and Yes oriented to time MENINGEAL SIGNS: Yes no meningeal signs OTHER: He has generalized weakness in all extremities. No focal weakness Psych: COMMON NORMALS: mental status grossly normal, Normal thought process present, cooperative, normal affect and speech normal APPEARANCE: Yes well kempt ATTITUDE: Yes calm SPEECH: Yes normal speech THOUGHT PROCESS: Normal thought process present Skin: COMMON NORMALS: no rashes or lesions noted GENERAL SKIN EXAM: no rashes or lesions noted Course Vital Signs: Vital signs: Vital Signs Temperature 98.2 F 11/05/20 20:39 Pulse Rate 59 L 11/05/20 22:38 Respiratory Rate 16 11/05/20 22:38 Blood Pressure 129/83 11/05/20 22:38 Pulse Oximetry 17 L 11/05/20 22:38 MDM - Weakness MDM Narrative: Medical decision making narrative: This patient has a complicated medical history and was just discharged from this facility a few days ago for osteomyelitis, critical limb ischemia, elevated troponin amongst other things. He was admitted for over 2 weeks and was discharged to a skilled nursing for IV antibiotics. He signed out of there AGAINST MEDICAL ADVICE and has not had antibiotics for a few days. During that time he has had increasing generalized weakness which caused him to present to the ER today. A general work-up was performed and he was admitted to the hospitalist service. Dr. Walsh accepts Lab Data: Labs: Lab Results 11/05/20 11/05/20 11/05/20 Range/Units 20:53 20:53 20:53 WBC 6.1 (4.0-10.0) 10^3/ uL RBC 3.25 L (4.1-5.3) 10^6/u L Hgb 9.6 L (11.7-16.6) g/dL Hct 30.3 L (42.0-52.0) % MCV 93.2 (80-94) fL MCH 29.5 (28.0-34.0) pg MCHC 31.7 (30.0-36.0) g/dL RDW 19.8 H (12.1-15.1) % Plt Count 230 (130-400) 10^3/c mm MPV 11.3 H (7.4-10.4) fL Neut % (Auto) 59.5 % Lymph % (Auto) 24.3 % [place] % (Auto) 10.7 % Eos % (Auto) 4.5 % Baso % (Auto) 0.8 % Neut # (Auto) 3.61 (1.8-7.7) 10^3/u L Lymph # (Auto) 1.5 (0.8-4.8) 10^3/u L [place] # (Auto) 0.7 (0.2-0.9) 10^3/u L Eos # (Auto) 0.3 (0.0-0.8) 10^3/u L Baso # (Auto) 0.1 (0.0-0.1) 10^3/u L Nucleated RBC % (a uto) 0 % Nucleated RBCs # 0.0 /100WBC D-Dimer 1.16 H (0-0.59) ug/mIFE U Sodium 135 L (136-145) mmol/L Potassium 4.2 (3.5-5.1) mmol/L Chloride 99 (98-107) mmol/L Carbon Dioxide 26 (22-29) mmol/L Anion Gap 14.2 (5-19) BUN 11 (8-23) mg/dL Creatinine 1.2 (0.7-1.2) mg/dL GFR Calculation Not Reportable Glucose 152 H (65-115) mg/dL Calculated Osmolal ity 282 L (285-295) mOsm/k g Lactate (0.5-2.2) mmol/L Calcium 8.2 L (8.5-10.5) mg/dL Total Bilirubin 0.5 (0.15-1.2) mg/dL AST 13 (0-40) U/L ALT 7 (0-41) U/L Alkaline Phosphata se 146 H (40-130) IU/L Creatine Kinase 23 L (39-308) U/L Troponin T Baselin e (0-15) ng/L NT-Pro-B Natriuret Pep 6702 H (0-450) pg/mL Total Protein 6.1 L (6.6-8.7) g/dL Albumin 3.4 L (3.5-5.2) g/dL Globulin 2.7 (1.3-4.6) g/dL 11/05/20 11/05/20 Range/Units 20:53 20:53 WBC (4.0-10.0) 10^3/ uL RBC (4.1-5.3) 10^6/u L Hgb (11.7-16.6) g/dL Hct (42.0-52.0) % MCV (80-94) fL MCH (28.0-34.0) pg MCHC (30.0-36.0) g/dL RDW (12.1-15.1) % Plt Count (130-400) 10^3/c mm MPV (7.4-10.4) fL Neut % (Auto) % Lymph % (Auto) % [place] % (Auto) % Eos % (Auto) % Baso % (Auto) % Neut # (Auto) (1.8-7.7) 10^3/u L Lymph # (Auto) (0.8-4.8) 10^3/u L [place] # (Auto) (0.2-0.9) 10^3/u L Eos # (Auto) (0.0-0.8) 10^3/u L Baso # (Auto) (0.0-0.1) 10^3/u L Nucleated RBC % (a uto) % Nucleated RBCs # /100WBC D-Dimer (0-0.59) ug/mIFE U Sodium (136-145) mmol/L Potassium (3.5-5.1) mmol/L Chloride (98-107) mmol/L Carbon Dioxide (22-29) mmol/L Anion Gap (5-19) BUN (8-23) mg/dL Creatinine (0.7-1.2) mg/dL GFR Calculation Glucose (65-115) mg/dL Calculated Osmolal ity (285-295) mOsm/k g Lactate 2.2 (0.5-2.2) mmol/L Calcium (8.5-10.5) mg/dL Total Bilirubin (0.15-1.2) mg/dL AST (0-40) U/L ALT (0-41) U/L Alkaline Phosphata se (40-130) IU/L Creatine Kinase (39-308) U/L Troponin T Baselin e 96 H (0-15) ng/L NT-Pro-B Natriuret Pep (0-450) pg/mL Total Protein (6.6-8.7) g/dL Albumin (3.5-5.2) g/dL Globulin (1.3-4.6) g/dL Discharge Plan Discharge Patient Disposition: Admitted As Inpatient Admit Provider: Stewart Walsh Clinical Impression: Osteomyelitis Condition: Stable Coding Level of Care Code ED Charging Plug Placer for Chaitanya Parsons
[2020-11-05 23:07] VITALS: BP 154/86; PULSE 72; RESP 21; TEMP 36.8; O2SAT 96
[2020-11-05] MEDS: linezolid premix 600 MG/300 ML PREMIX 300 MG IV (23:15)
--- NOTE | 2020-11-05 23:50 | PC.NURSE ---
Pt presented to room 107 via ED stretcher. Pt had no dressings on his wounds on his heals. Prior to me getting into the patient's room he had already been ambulated to the bed from the ED carrier. There was a minute amount of bleeding noted from his wounds. Wet to dry dressing was applied to both heels with 4x4 sterile water and kerlex. Pt placed in position of comfort and placed on blueprint reproducer.
[2020-11-06] VITALS (9 sets, daily range): BP systolic 110–160; BP diastolic 60–88; PULSE 56–69; RESP 19–22; TEMP 36.5–36.7; O2SAT 91–98
[2020-11-06] MEDS: enoxaparin 80 mg/0.8 mL Syringe SUBCUT ×3 (00:26→23:35)
[2020-11-06 01:51] LABS: Troponin 5 2HR 112.6 ng/L (0-15); Troponin 5 2HR Delta 16.6 ABS# (0-10)
[2020-11-06] MEDS: HYDROcodone-acetaminophen 5-325 mg Tablet 1 TAB PO ×2 (02:13→21:42)
--- NOTE | 2020-11-06 03:01 | ECG_ITS ---
[facility] Test Date: 2020-11-06 Pat Name: Rhett Cotto Department: Room: 107 Gender: Male Webmethods Consultant: : 1940 Requested By: Audi Florian Order Number: [id number] Russ MD: Donna Navarrete M.D. Measurements Intervals [place] Rate: 59 P: VA: QRS: -47 QRSD: 141 T: 176 QT: 483 QTc: 479 Interpretive Statements ATRIAL FIBRILLATION WITH SLOW VENTRICULAR RESPONSE MARKED LEFT AXIS DEVIATION [QRS AXIS < -30] LEFT BUNDLE BRANCH BLOCK [120+ ms QRS DURATION, 80+ ms Q/S IN V1/V2, 85+ ms R IN I/aVL/V5/V6] Compared to ECG 11/05/2020 21:13:06 No significant changes Electronically Signed On 11-07-2020 12:37:17 CDT by Donna Navarrete M.D. [id number]
[2020-11-06 04:19] LABS: Basophils # 0.1 10^3/uL (0.0-0.1); Eosinophils # 0.4 10^3/uL (0.0-0.8); Eosinophils % 6.6 %; Hematocrit 27.9 % (42.0-52.0); Hemoglobin 8.7 g/dL (11.7-16.6); Lymphocytes # 1.6 10^3/uL (0.8-4.8); Lymphocytes % 26.1 %; Mean Corpuscular HGB Conc 31.2 g/dL (30.0-36.0); Mean Corpuscular Hemoglobin 29.2 pg (28.0-34.0); Mean Corpuscular Volume 93.6 fL (80-94); Mean Platelet Volume 11.2 fL (7.4-10.4); Monocytes # 0.7 10^3/uL (0.2-0.9); Monocytes % 11.4 %; Neutrophils # 3.42 10^3/uL (1.8-7.7); Neutrophils % 54.6 %; Nucleated Red Blood Cells % 0 %; Platelet Count 176 10^3/cmm (130-400); Red Blood Count 2.98 10^6/uL (4.1-5.3); Red Cell Distribution Width 19.6 % (12.1-15.1); White Blood Count 6.3 10^3/uL (4.0-10.0)
[2020-11-06 04:40] LABS: Blood Urea Nitrogen 11 mg/dL (8-23); Calcium 8.1 mg/dL (8.5-10.5); Carbon Dioxide 26 mmol/L (22-29); Chloride 102 mmol/L (98-107); Glucose 106 mg/dL (65-115); Osmolality Calculated 284 mOsm/kg (285-295); Sodium 137 mmol/L (136-145)
[2020-11-06 05:12] LABS: Troponin 5 6HR 117.1 ng/L (0-15); Troponin 5 6HR Delta 21.1 ng/L (0-12)
[2020-11-06 06:53] LABS: Glucose Point of Care 102 mg/dL (70-110)
[2020-11-06] MEDS: sennosides-docusate Tablet 1 TAB PO (08:03)
[2020-11-06] MEDS: allopurinol 100 mg Tablet PO (08:03)
[2020-11-06] MEDS: clopidogrel 75 mg Tablet PO (08:03)
[2020-11-06] MEDS: levothyroxine 75 mcg Tablet 150 MCG PO (08:03)
--- NOTE | 2020-11-06 09:00 | PC.NURSE ---
pt wants a bath at bed time
--- NOTE | 2020-11-06 09:59 | PC.PHAR ---
PT STATES HIS HAS BEEN HELPING HIM WITH HIS MEDICATIONS-PT WAS IN [facility] PT LEFT AMA ON FRIDAY-DOSES WITH THE DATE 11/03/20 WAS THE LAST TIME HE HAD THOSE MEDICATIONS-[facility] STATES SINCE THE PT LEFT AMA THAT THEY DONT SEND MEDICATIONS HOME WITH THEM-PTS STATES THE PT HAS BEEN TAKING A ASPIRIN 81MG DAILY,METFORMIN ER 500MG BID,KCL 20MEQ BID,PRILOSEC 20MG DAILY,LASIX 40MG BID,SPIRONOLACTONE 25MG DAILY-AUGMENTIN WAS FILLED ON 11/04/20 AND NOT PICKED UP FROM THE [facility]-ZYVOX WAS CALLED IN ON 11/04/20 BUT WASNT COVERED BY THE PTS INSURANCE-NOTES ARE MADE IN THE PHARMACY COMMENTS OF EACH MEDICATION
[2020-11-06] MEDS: ampicillin-sulbactam 1.5 GM in sodium chloride 0.9% (plus) 50 ML IV ×2 (11:11→23:04)
--- NOTE | 2020-11-06 11:27 | PC.CHAP ---
Pastoral Care Encounter/Spiritual Assessment Type of Contact [] Declined solar energy installation manager visit [] Patient/Family/Request visit [] Outpatient visit [] Follow-up visit [] Physician referral [] Code/Alert [] Routine visit [] Staff referral [] Actively dying [] Patient sleeping [] Family support [] [] Out of room [] Palliative care [] [] Receiving care in room [] Pre-surgical visit [] Trauma [] Long length of stay [] ICU visit [] Other: Relational/Emotional Strength [] Patient feels connected with others/family/visitors/staff [] Distress [] Loneliness/isolation [] Abandonment Spirituality of Patient [x] Person of Shelli [x] Attends Latter Day of their [place]lli [x] Believes in Prayer [x] Reads Bible or Taoism materials [] There are Spiritual issues to be addressed Steam Service Inspector Interventions [x] Prayer [] Active listening [] Non-anxious presence [] Spiritual/emotional support [] Crisis/trauma care [] Spiritual counseling [] Bereavement support [] Provided bereavement packet [] Provided Bible/devotional materials [] Provided toy/stuffed animal, coloring book to patient or family member [] Provided Communion [] Anointing/[place] [] Salvation [] Completed spiritual assessment [] Other: Impact on Illness or Injury [] Angry [] Fearful [] Anxious [] Often cries [] Exhaustion [] Unable to work [] Unable to attend alevism [] Unable to walk/stand [] Unable to read [] Unable to drive [] Unable to eat/drink [] Unable to sleep [] Unable to be with family [] Patient intubated [] Other: Summary Time spent with patient
[2020-11-06 11:28] LABS: Glucose Point of Care 177 mg/dL (70-110)
[2020-11-06] MEDS: linezolid premix 600 MG/300 ML PREMIX 300 MG IV ×2 (12:53→23:30)
[2020-11-06 13:28] LABS: Procalcitonin 0.04 ng/mL (0-0.5)
[2020-11-06 13:39] LABS: Iron 43 ug/dL (59-158)
[2020-11-06 15:01] LABS: Percent Saturation 24.8 % (20-50); Total Iron Binding Capacity 173 mcg/dl; Unsaturated Iron Binding 130 ug/dL (112-347)
[2020-11-06 16:27] LABS: Glucose Point of Care 90 mg/dL (70-110)
[2020-11-06] MEDS: FUROsemide 40 mg Tablet PO (17:14)
[2020-11-06] MEDS: ferrous gluconate 324 mg Tablet PO (17:14)
--- NOTE | 2020-11-06 18:20 | PM.PN ---
Subjective Subjective: Interval history: Hospital course, H&P appreciated. Examination patient's at bedside. Patient lying comfortably in bed. Denies any nausea, vomiting, headache. States he has not had any antibiotics over 3 days since he [facility]. Patient has been having his dressing changed by his at home. They have noticed more bleeding but denies any purulent discharge. Vitals/I&O/Wt Last Vital Signs Temp 97.9 F 11/06/20 14:47 Pulse 61 11/06/20 14:47 Resp 19 H 11/06/20 14:47 BP 119/87 11/06/20 14:47 Pulse Ox 96 11/06/20 14:47 11/06/20 11/06/20 11/06/20 06:59 14:59 22:59 Intake Total 450 / 450 932 / 932 Output Total 150 / 150 200 / 200 250 / 450 Balance 300 / 300 732 / 732 -250 / 482 Weight last 48 hrs Weight 81.647 kg Physical Exam Narrative: EXAM NARRATIVE: General: No acute distress, AO x3 HEENT: PERRLA, pupils bilaterally equal and reactive Chest: Normal vesicular breath sounds, no added sounds, equal good air entry bilaterally CVS: S1-S2 irregularly irregular, no murmurs, no tachycardia, no gallops, no rubs Abdomen: Soft, obese, nontender, no organomegaly, bowel sounds present Neuro: No focal deficits, no facial deformity, AO x3, power 5/5 in all limbs Extremities:Full-thickness heel ulcer of left side with exposure to bone, right heel round shape open ulcer with exposure to subcutaneous tissue and fat no active purulent drainage, Dorsalis pedis pulses 1+ bilaterally Venous stasis dermatitis Data : 11/06/20 04:06 11/06/20 04:06 Micro: Microbiology 11/05/20 21:43 Blood Culture - Preliminary Blood SPECIMEN COLLECTED 11/05/20 21:10 Blood Culture - Preliminary Blood SPECIMEN COLLECTED A&P Assessment and plan (1) Osteomyelitis: Status: Acute (2) Non-pressure chronic ulcer of other part of right foot with necrosis of bone: Status: Acute (3) Anaerobic bacteremia: History of 1 previous admission 2 weeks ago Status: Acute (4) Proteus infection: Status: Acute (5) MRSA (methicillin resistant Staphylococcus aureus) infection: Status: Acute (6) Enterococcus faecalis infection: Status: Acute (7) Contrast dye induced nephropathy: Status: Acute (8) Hypothyroid: Status: Chronic Qualifiers: Hypothyroidism type: acquired Qualified Code(s): E03.9 - Hypothyroidism, unspecified (9) Peripheral arterial disease: Status: Chronic (10) Ischemic cardiomyopathy: Status: Chronic (11) Type 2 diabetes mellitus: Status: Chronic Qualifiers: Diabetes mellitus penitentiary insulin use: with rodent exterminator use Diabetes mellitus complication status: with kidney complications Diabetes mellitus complication detail: with chronic kidney disease Chronic kidney disease stage: stage 3 (moderate) Chronic kidney disease stage 3 subtype: stage 3b (GFR 30-44) Qualified Code(s): E11.22 - Type 2 diabetes mellitus with diabetic chronic kidney disease; N18.32 - Chronic kidney disease, stage 3b; Z79.4 - rodent exterminator (current) use of insulin Additional A&P Information Osteomyelitis of left calcaneal area: Recent bacteremia. Was advised to continue Unasyn and Zyvox for next 6 weeks through [facility]ICC line at [facility] since then he has left AMA and has been off antibiotics for 2 to 3 days. Restarted Zyvox and Unasyn overnight. Continue for now. No active signs of sepsis. Blood cultures sent. Dressing as per Dr. Perez. Weightbearing as per Dr. Perez from previous admission.Quarter percent Dakin solution wet to dry dressing change 3 times daily left heel wound during this hospitalization. -Silver alginate to right heel wound once daily dressing change. We will consult Dr. Perez and infectious disease as patient need to follow-up as an outpatient. Contrast-induced nephropathy on previous admission: Resolving. Current creatinine is 1.2 which is improved significantly from baseline creatinine 1.5 Mild signs of fluid overload. Start home Lasix 40 mg twice daily. Will monitor kidney functions. Peripheral arterial disease status post balloon angioplasty Bilateral diabetic foot ulcers showing granulation tissue, dorsalis pedis pulses 1+ bilaterally No active signs of ischemia or gangrene. Continue statin, Plavix. Ischemic cardiomyopathy with positive stress test: Echocardiogram from April 2020 shows an EF of 25 to 30% with global LV hypokinesia with moderate pulmonary hypertension, moderate TR with elevated RA pressures. Elevated troponin, no active chest pain EKG without ischemic or infarctive change, A. fib without RVR, heart rate 54 He might benefit from cardiac cath as his creatinine has improved on this visit, kindly reevaluate and consult cardiology A. fib without RVR: Continue with metoprolol at home dose. We will switch him to Lovenox in case he would go for cardiac cath, Consistent carb diet Moderate sliding scale DVT prophylaxis not indicated Full code Discharge planning: Discussed in detail with patient that given his peripheral arterial disease, extensive diabetic foot he needs to be on IV antibiotics, daily dressing changes and nonweightbearing status as per podiatry going forward still he is on medications for at least 6 weeks to prevent from amputation. Also discussed that potential discharge planning options would be SNF versus home health. Patient after extensive discussion with family decided for possible SNF placement. Care plan discussed in detail with patient and patient's at bedside. All the questions were answered. Attestations Medical Necessity Statement*: Requires further hospitalization for management of osteomyelitis of left heel, ischemic cardiomyopathy with positive stress test Time Spent in Patient Care: Greater than 35 minutes (>than 50% of time spent in counselling and/or direct pt care on unit). Coding Level of Care Code Acute Customer Service Associate for [facility] Fwd Diagnoses Osteomyelitis M86.9 Non-pressure chronic ulcer of other part of right foot with necrosis of bone L97.514 Anaerobic bacteremia R78.81 Proteus infection A49.8 MRSA (methicillin resistant Staphylococcus aureus) infection A49.02 Enterococcus faecalis infection B95.2 Contrast dye induced nephropathy N14.1; T50.8X5A Hypothyroid E03.9 Hypothyroidism type: acquired Peripheral arterial disease I73.9 Ischemic cardiomyopathy I25.5 Type 2 diabetes mellitus E11.22; N18.32; Z79.4 Diabetes mellitus penitentiary insulin use: with penitentiary use Diabetes mellitus complication status: with kidney complications Diabetes mellitus complication detail: with chronic kidney disease Chronic kidney disease stage: stage 3 (moderate) Chronic kidney disease stage 3 subtype: stage 3b (GFR 30-44)
[2020-11-06 20:30] LABS: Glucose Point of Care 133 mg/dL (70-110)
--- NOTE | 2020-11-06 21:07 | PC.NURSE ---
Asked patient if he would like a bath. Patient stated that I will take a bath when I go home tomorrow.
[2020-11-06] MEDS: sodium hypochlorite 0.25% Btl 473 mL 1 APPLIC TOPICAL (21:43)
[2020-11-06] MEDS: atorvastatin 40 mg Tablet PO (21:43)
[2020-11-06 23:33] LABS: Bacteria Urine TRACE /hpf; Bilirubin Urine Neg (Negative); Blood Urine 2+ (Negative); Glucose Urine UA Norm (Normal); Ketones Urine Negative (Negative); Leukocyte Esterase Urine Trace (Negative); Nitrate Urine Negative (Negative); Protein Urine Neg (Negative); RBC Urine 0-4 /hpf (0-2); Squamous Epithelial Cell Urine 0-4 /hpf (0-5); Urine Appearance Clear (CLEAR); Urine Color Yellow (Yellow); Urobilinogen Urine Norm (Negative); pH Urine 5 (5-7)
[2020-11-07] VITALS (9 sets, daily range): BP systolic 131–162; BP diastolic 68–90; PULSE 49–85; RESP 13–20; TEMP 36.6–36.8; O2SAT 96–98
[2020-11-07] MEDS: acetaminophen 500 mg Tablet PO (02:06)
[2020-11-07 05:05] LABS: Basophils # 0.1 10^3/uL (0.0-0.1); Eosinophils # 0.4 10^3/uL (0.0-0.8); Eosinophils % 6.1 %; Hematocrit 29.1 % (42.0-52.0); Hemoglobin 9.1 g/dL (11.7-16.6); Lymphocytes % 33.8 %; Mean Corpuscular HGB Conc 31.3 g/dL (30.0-36.0); Mean Corpuscular Hemoglobin 29.4 pg (28.0-34.0); Mean Corpuscular Volume 94.2 fL (80-94); Mean Platelet Volume 10.9 fL (7.4-10.4); Monocytes # 0.7 10^3/uL (0.2-0.9); Monocytes % 11.1 %; Neutrophils # 2.84 10^3/uL (1.8-7.7); Neutrophils % 47.8 %; Nucleated Red Blood Cells % 0 %; Platelet Count 198 10^3/cmm (130-400); Red Blood Count 3.09 10^6/uL (4.1-5.3); Red Cell Distribution Width 19.5 % (12.1-15.1); White Blood Count 5.9 10^3/uL (4.0-10.0)
[2020-11-07 05:39] LABS: Alanine Aminotransferase 7 U/L (0-41); Albumin Level 3.1 g/dL (3.5-5.2); Alkaline Phosphatase 130 IU/L (40-130); Aspartate Amino Transferase 14 U/L (0-40); Blood Urea Nitrogen 11 mg/dL (8-23); Calcium 8.2 mg/dL (8.5-10.5); Carbon Dioxide 26 mmol/L (22-29); Chloride 99 mmol/L (98-107); Glucose 90 mg/dL (65-115); Osmolality Calculated 277 mOsm/kg (285-295); Sodium 134 mmol/L (136-145); Total Bilirubin 0.8 mg/dL (0.15-1.2); Total Protein 6.1 g/dL (6.6-8.7)
[2020-11-07] MEDS: FUROsemide 40 mg Tablet PO (06:37)
[2020-11-07] MEDS: HYDROcodone-acetaminophen 5-325 mg Tablet 1 TAB PO (06:37)
[2020-11-07] MEDS: aspirin 81 mg EC Tablet PO (06:37)
[2020-11-07 06:50] LABS: Glucose Point of Care 108 mg/dL (70-110)
[2020-11-07] MEDS: allopurinol 100 mg Tablet PO (08:52)
[2020-11-07] MEDS: sennosides-docusate Tablet 1 TAB PO (08:52)
[2020-11-07] MEDS: ferrous gluconate 324 mg Tablet PO ×2 (08:52→17:36)
[2020-11-07] MEDS: clopidogrel 75 mg Tablet PO (08:52)
[2020-11-07] MEDS: levothyroxine 75 mcg Tablet 150 MCG PO (09:19)
--- NOTE | 2020-11-07 10:02 | PC.CHAP ---
Pastoral Care Encounter/Spiritual Assessment Type of Contact [] Declined emergency room specialist visit [] Patient/Family/Request visit [] Outpatient visit [] Follow-up visit [] Physician referral [] Code/Alert [x] Routine visit [] Staff referral [] Actively dying [] Patient sleeping [] Family support [] [] Out of room [] Palliative care [] [x] Receiving care in room [] Pre-surgical visit [] Trauma [] Long length of stay [] ICU visit [] Other: Relational/Emotional Strength [] Patient feels connected with others/family/visitors/staff [] Distress [] Loneliness/isolation [] Abandonment Spirituality of Patient [] Person of Shelli [] Attends Faith of their Shelli [] Believes in Prayer [] Reads Bible or Adventist materials [] There are Spiritual issues to be addressed Gas Manager Interventions [x] Prayer [] Active listening [] Non-anxious presence [] Spiritual/emotional support [] Crisis/trauma care [] Spiritual counseling [] Bereavement support [] Provided bereavement packet [] Provided Bible/devotional materials [] Provided toy/stuffed animal, coloring book to patient or family member [] Provided Communion [] Anointing/[place]ert [] Salvation [x] Completed spiritual assessment [] Other: Impact on Illness or Injury [] Angry [] Fearful [] Anxious [] Often cries [] Exhaustion [] Unable to work [] Unable to attend advent [] Unable to walk/stand [] Unable to read [] Unable to drive [] Unable to eat/drink [] Unable to sleep [] Unable to be with family [] Patient intubated [] Other: Summary Time spent with patient
[2020-11-07] MEDS: ampicillin-sulbactam 1.5 GM in sodium chloride 0.9% (plus) 50 ML IV ×2 (10:50→23:45)
[2020-11-07] MEDS: sodium hypochlorite 0.25% Btl 473 mL 1 APPLIC TOPICAL ×2 (10:55→21:30)
[2020-11-07] MEDS: linezolid premix 600 MG/300 ML PREMIX 300 MG IV (11:22)
[2020-11-07] MEDS: enoxaparin 80 mg/0.8 mL Syringe SUBCUT ×2 (11:22→23:35)
[2020-11-07 11:29] LABS: Glucose Point of Care 125 mg/dL (70-110)
--- NOTE | 2020-11-07 15:43 | PC.OT ---
OT TREATMENT ATTEMPTED. PATIENT REPORTS THAT HE IS TOO TIRED TO PARTICIPATE TODAY.
[2020-11-07 16:31] LABS: Glucose Point of Care 139 mg/dL (70-110)
--- NOTE | 2020-11-07 18:45 | P.PN_ITS ---
Subjective Subjective: Interval history: No events overnight. Patient comfortable in bed. Has remained hemodynamically stable and afebrile. On examination room air saturating 96%. Complaining of mild congestion. Appropriate urine output in last 24 hours. Vitals/I&O/Wt Last Vital Signs Temp 98.0 F 11/07/20 15:04 Pulse 60 11/07/20 15:04 Resp 20 H 11/07/20 15:04 BP 148/80 11/07/20 15:04 Pulse Ox 96 11/07/20 15:04 11/07/20 11/07/20 11/07/20 06:59 14:59 22:59 Intake Total 590 / 1882 590 / 590 240 / 830 Output Total 700 / 1475 200 / 200 Balance -110 / 407 590 / 590 40 / 630 Weight last 48 hrs Weight 81.647 kg Physical Exam Narrative: EXAM NARRATIVE: General: No acute distress, AO x3 HEENT: PERRLA, pupils bilaterally equal and reactive Chest: Normal vesicular breath sounds, no added sounds, equal good air entry bilaterally CVS: S1-S2 irregularly irregular, no murmurs, no tachycardia, no gallops, no rubs Abdomen: Soft, obese, nontender, no organomegaly, bowel sounds present Neuro: No focal deficits, no facial deformity, AO x3, power 5/5 in all limbs Extremities:Full-thickness heel ulcer of left side with exposure to bone, right heel round shape open ulcer with exposure to subcutaneous tissue and fat no active purulent drainage, Dorsalis pedis pulses 1+ bilaterally Venous stasis dermatitis Data : 11/07/20 04:35 11/07/20 04:35 Micro: Microbiology 11/06/20 17:19 MRSA Culture - Final Nose 11/05/20 21:43 Blood Culture - Preliminary Blood NEGATIVE TO DATE 11/05/20 21:10 Blood Culture - Preliminary Blood NEGATIVE TO DATE A&P Assessment and plan (1) Osteomyelitis: Status: Acute (2) Non-pressure chronic ulcer of other part of right foot with necrosis of bone: Status: Acute (3) Anaerobic bacteremia: History of 1 previous admission 2 weeks ago Status: Acute (4) Proteus infection: Status: Acute (5) MRSA (methicillin resistant Staphylococcus aureus) infection: Status: Acute (6) Enterococcus faecalis infection: Status: Acute (7) Contrast dye induced nephropathy: Status: Acute (8) Hypothyroid: Status: Chronic Qualifiers: Hypothyroidism type: acquired Qualified Code(s): E03.9 - Hypo thyroidism, unspecified (9) Peripheral arterial disease: Status: Chronic (10) Ischemic cardiomyopathy: Status: Chronic (11) Type 2 diabetes mellitus: Status: Chronic Qualifiers: Chronic kidney disease stage: stage 3 (moderate) Chronic kidney disease stage 3 subtype: stage 3b (GFR 30-44) Diabetes mellitus complication detail: with chronic kidney disease Diabetes mellitus complication status: with kidney complications Diabetes mellitus termite control service representative insulin use: with termite control service representative use Qualified Code(s): E11.22 - Type 2 diabetes mellitus with diabetic chronic kidney disease; N18.32 - Chronic kidney disease, stage 3b; Z79.4 - termite control service representative (current) use of insulin Additional A&P Information Osteomyelitis of left calcaneal area: Recent bacteremia. Was advised to continue Unasyn and Zyvox for next 6 weeks through [facility] at [facility] since then he has left AMA and has been off antibiotics for 2 to 3 days. Restarted Zyvox and Unasyn overnight. Continue for now. No active signs of sepsis. Blood cultures sent. Dressing as per Dr. Perez. Weightbearing as per Dr. Perez from previous admission.Quarter percent Dakin solution wet to dry dressing change 3 times daily left heel wound during this hospitalization. -Silver alginate to right heel wound once daily dressing change. We will consult Dr. Perez and infectious disease as patient need to follow-up as an outpatient. Contrast-induced nephropathy on previous admission: Resolving. Creatinine 1.3 today. Mild signs of fluid overload. Start home Lasix 40 mg twice daily. Will monitor kidney functions. Peripheral arterial disease status post balloon angioplasty Bilateral diabetic foot ulcers showing granulation tissue, dorsalis pedis pulses 1+ bilaterally No active signs of ischemia or gangrene. Continue statin, Plavix. Ischemic cardiomyopathy with positive stress test: Echocardiogram from April 2020 shows an EF of 25 to 30% with global LV hypokinesia with moderate pulmonary hypertension, moderate TR with elevated RA pressures. Elevated troponin, no active chest pain EKG without ischemic or infarctive change, A. fib without RVR, heart rate [address] Barfield from cardiology. He recommends patient to follow- up as an outpatient with Dr. Nayak with his primary sugar house supervisor in next 2 to 3 weeks for further management given very recent contrast-induced nephropathy. A. fib without RVR: Continue with metoprolol at home dose. We will switch him to Lovenox in case he would go for cardiac cath, Consistent carb diet Moderate sliding scale DVT prophylaxis not indicated Full code Discharge planning: Discussed in detail with patient that given his peripheral arterial disease, extensive diabetic foot he needs to be on IV antibiotics, daily dressing changes and nonweightbearing status as per podiatry going forward still he is on medications for at least 6 weeks to prevent from amputation. Also discussed that potential discharge planning options would be SNF versus home health. Patient after extensive discussion with family decided for possible SNF placement. Case management working on transfer to [place] as per patient's request. Attestations Medical Necessity Statement*: Patient requires further hospitalization for ma nagement of osteomyelitis and peripheral artery disease while safe discharge planning is sought. Time Spent in Patient Care: Greater than 35 minutes (>than 50% of time spent in counselling and/or direct pt care on unit) . Coding Level of Care Code Acute National Facilities Manager for [facility] [place] Fwd Diagnoses Osteomyelitis M86.9 Non-pressure chronic ulcer of other part of right foot with necrosis of bone L97.514 Anaerobic bacteremia R78.81 Proteus infection A49.8 MRSA (methicillin resistant Staphylococcus aureus) infection A49.02 Enterococcus faecalis infection B95.2 Contrast dye induced nephropathy N14.1; T50.8X5A Hypothyroid E03.9 Hypothyroidism type: acquired Peripheral arterial disease I73.9 Ischemic cardiomyopathy I25.5 Type 2 diabetes mellitus E11.22; N18.32; Z79.4 Chronic kidney disease stage: stage 3 (moderate) Chronic kidney disease stage 3 subtype: stage 3b (GFR 30-44) Diabetes mellitus complication detail: with chronic kidney disease Diabetes mellitus complication status: with kidney complications Diabetes mellitus penitentiary insulin use: with termite control service representative use
[2020-11-07 19:57] LABS: Glucose Point of Care 181 mg/dL (70-110)
[2020-11-07] MEDS: atorvastatin 40 mg Tablet PO (21:30)
[2020-11-08] VITALS (9 sets, daily range): BP systolic 113–152; BP diastolic 73–86; PULSE 52–66; RESP 14–20; TEMP 36.6–37; O2SAT 95–98
[2020-11-08] MEDS: linezolid premix 600 MG/300 ML PREMIX 300 MG IV ×2 (00:13→12:05)
--- NOTE | 2020-11-08 02:21 | PC.NURSE ---
Patient requesting something to help with sleep tonight. Informed Dr Mcghee while doctor present on the floor and received verbal order for Ambien 5mg PO at bedtime PRN. RBVO
[2020-11-08] MEDS: HYDROcodone-acetaminophen 5-325 mg Tablet 1 TAB PO ×2 (02:59→20:02)
[2020-11-08] MEDS: zolpidem 5 mg Tablet PO ×2 (02:59→20:03)
[2020-11-08 04:55] LABS: Basophils # 0.1 10^3/uL (0.0-0.1); Basophils % 1.2 %; Eosinophils # 0.3 10^3/uL (0.0-0.8); Eosinophils % 6.3 %; Hematocrit 27.1 % (42.0-52.0); Hemoglobin 8.4 g/dL (11.7-16.6); Lymphocytes # 1.6 10^3/uL (0.8-4.8); Lymphocytes % 31.5 %; Mean Corpuscular Volume 93.4 fL (80-94); Mean Platelet Volume 10.8 fL (7.4-10.4); Monocytes # 0.6 10^3/uL (0.2-0.9); Monocytes % 11.6 %; Neutrophils # 2.42 10^3/uL (1.8-7.7); Neutrophils % 49.2 %; Nucleated Red Blood Cells % 0 %; Platelet Count 157 10^3/cmm (130-400); Red Cell Distribution Width 19.5 % (12.1-15.1); White Blood Count 4.9 10^3/uL (4.0-10.0)
[2020-11-08 05:13] LABS: Alanine Aminotransferase 6 U/L (0-41); Albumin Level 2.7 g/dL (3.5-5.2); Alkaline Phosphatase 115 IU/L (40-130); Anion Gap 11.7 (5-19); Aspartate Amino Transferase 12 U/L (0-40); Blood Urea Nitrogen 10 mg/dL (8-23); Calcium 7.8 mg/dL (8.5-10.5); Carbon Dioxide 27 mmol/L (22-29); Chloride 99 mmol/L (98-107); Globulin 2.8 g/dL (1.3-4.6); Glucose 72 mg/dL (65-115); Osmolality Calculated 276 mOsm/kg (285-295); Potassium 3.7 mmol/L (3.5-5.1); Sodium 134 mmol/L (136-145); Total Bilirubin 0.6 mg/dL (0.15-1.2); Total Protein 5.5 g/dL (6.6-8.7)
[2020-11-08 05:24] LABS: NT Pro B Type Natriuretic Pept 7200 pg/mL (0-450)
[2020-11-08 06:49] LABS: Glucose Point of Care 82 mg/dL (70-110)
[2020-11-08] MEDS: sodium hypochlorite 0.25% Btl 473 mL 1 APPLIC TOPICAL ×3 (08:00→22:22)
[2020-11-08] MEDS: ferrous gluconate 324 mg Tablet PO ×2 (08:24→18:10)
[2020-11-08] MEDS: levothyroxine 75 mcg Tablet 150 MCG PO (08:24)
[2020-11-08] MEDS: aspirin 81 mg EC Tablet PO (08:24)
[2020-11-08] MEDS: FUROsemide 40 mg Tablet PO ×2 (08:25→18:11)
[2020-11-08] MEDS: clopidogrel 75 mg Tablet PO (08:25)
[2020-11-08] MEDS: allopurinol 100 mg Tablet PO (08:25)
[2020-11-08 11:13] LABS: Glucose Point of Care 118 mg/dL (70-110)
[2020-11-08] MEDS: ampicillin-sulbactam 1.5 GM in sodium chloride 0.9% (plus) 50 ML IV (11:24)
--- NOTE | 2020-11-08 11:53 | PC.OT ---
OT TREATMENT ATTEMPTED. PATIENT REPORTS FATIGUE AND GENERALLY NOT FEELING WELL. DECLINES TO PARTICIPATE IN OT THIS A.M. DESPITE ENCOURAGEMENT. IS AGREEABLE TO P.M. TREATMENT.
[2020-11-08 16:11] LABS: Glucose Point of Care 120 mg/dL (70-110)
--- NOTE | 2020-11-08 17:14 | PM.PN ---
Subjective Subjective: Interval history: No acute events overnight. Patient uncomfortable in bed. Denies any nausea, vomiting, headache. He has been denied placement at [facility]. He is requesting to go home with home health. Daughter on phone is agreeable to same. Vitals/I&O/Wt Last Vital Signs Temp 98.3 F 11/08/20 15:09 Pulse 61 11/08/20 15:09 Resp 19 H 11/08/20 15:09 BP 152/81 11/08/20 15:09 Pulse Ox 96 11/08/20 15:09 11/08/20 11/08/20 11/08/20 06:59 14:59 22:59 Intake Total 550 / 1500 710 / 710 Output Total 250 / 600 1110 / 1110 Balance 300 / 900 -400 / -400 Physical Exam Narrative: EXAM NARRATIVE: General: No acute distress, AO x3 HEENT: PERRLA, pupils bilaterally equal and reactive Chest: Normal vesicular breath sounds, no added sounds, equal good air entry bilaterally CVS: S1-S2 irregularly irregular, no murmurs, no tachycardia, no gallops, no rubs Abdomen: Soft, obese, nontender, no organomegaly, bowel sounds present Neuro: No focal deficits, no facial deformity, AO x3, power 5/5 in all limbs Extremities:Full-thickness heel ulcer of left side with exposure to bone, right heel round shape open ulcer with exposure to subcutaneous tissue and fat no active purulent drainage, Dorsalis pedis pulses 1+ bilaterally Venous stasis dermatitis Data : 11/08/20 04:39 11/08/20 04:39 A&P Assessment and plan (1) Osteomyelitis: Status: Acute (2) Non-pressure chronic ulcer of other part of right foot with necrosis of bone: Status: Acute (3) Anaerobic bacteremia: History of 1 previous admission 2 weeks ago Status: Acute (4) Proteus infection: Status: Acute (5) MRSA (methicillin resistant Staphylococcus aureus) infection: Status: Acute (6) Enterococcus faecalis infection: Status: Acute (7) Contrast dye induced nephropathy: Status: Acute (8) Hypothyroid: Status: Chronic Qualifiers: Hypothyroidism type: acquired Qualified Code(s): E03.9 - Hypothyroidism, unspecified (9) Peripheral arterial disease: Status: Chronic (10) Ischemic cardiomyopathy: Status: Chronic (11) Type 2 diabetes mellitus: Status: Chronic Qualifiers: Diabetes mellitus salvage determiner insulin use: with salvage determiner use Diabetes mellitus complication status: with kidney complications Diabetes mellitus complication detail: with chronic kidney disease Chronic kidney disease stage: stage 3 (moderate) Chronic kidney disease stage 3 subtype: stage 3b (GFR 30-44) Qualified Code(s): E11.22 - Type 2 diabetes mellitus with diabetic chronic kidney disease; N18.32 - Chronic kidney disease, stage 3b; Z79.4 - senior living (current) use of insulin Additional A&P Information Osteomyelitis of left calcaneal area: Recent bacteremia. with advised to take Zyvox and Unasyn for 6 weeks through PICC line for osteomyelitis. He took an antibiotic course for around 3 days and left AMA after which he was off antibiotics for 2 days. No active signs of infection or sepsis at present. Blood cultures have remained negative. Dressing of wound as per Dr. Perez from last admission [address] Amaral's recommendation. Switch Unasyn and Zyvox to ceftriaxone 2 g IV daily and vancomycin. Will dose vancomycin as per kidney function keeping trough around 15. Will take pharmacy assistance. Contrast-induced nephropathy on previous admission: Creatinine 1.3 today. Mild signs of fluid overload. Start home Lasix 40 mg twice daily. Will monitor kidney functions. Peripheral arterial disease status post balloon angioplasty Bilateral diabetic foot ulcers showing granulation tissue, dorsalis pedis pulses 1+ bilaterally No active signs of ischemia or gangrene. Continue statin, Plavix. Ischemic cardiomyopathy with positive stress test: Echocardiogram from April 2020 shows an EF of 25 to 30% with global LV hypokinesia with moderate pulmonary hypertension, moderate TR with elevated RA pressures. Elevated troponin, no active chest pain EKG without ischemic or infarctive change, A. fib without RVR, heart rate [address] Barfield from cardiology. He recommends patient to follow-up as an outpatient with Dr. Nayak with his primary constitutional law professor in next 2 to 3 weeks for further management given very recent contrast-induced nephropathy. A. fib without RVR: Continue with metoprolol at home dose. We will switch him to Lovenox in case he would go for cardiac cath, Consistent carb diet Moderate sliding scale DVT prophylaxis not indicated Full code Discharge planning: Patient was denied patient advised to. Patient requests going home with home health. Patient's daughter on phone is agreeable to taking care of dressing and antibiotics at home. Home health will be arranged. Case management involved as well. Most likely discharge in next 24 hours once a week can be set up. Attestations Medical Necessity Statement*: Requires further hospitalization for management of osteomyelitis while safe discharge planning is sought. Time Spent in Patient Care: Greater than 35 minutes (>than 50% of time spent in counselling and/or direct pt care on unit). Coding Level of Care Code Acute Tooth Grinder for g Fwd Diagnoses Osteomyelitis M86.9 Non-pressure chronic ulcer of other part of right foot with necrosis of bone L97.514 Anaerobic bacteremia R78.81 Proteus infection A49.8 MRSA (methicillin resistant Staphylococcus aureus) infection A49.02 Enterococcus faecalis infection B95.2 Contrast dye induced nephropathy N14.1; T50.8X5A Hypothyroid E03.9 Hypothyroidism type: acquired Peripheral arterial disease I73.9 Ischemic cardiomyopathy I25.5 Type 2 diabetes mellitus E11.22; N18.32; Z79.4 Diabetes mellitus salvage determiner insulin use: with salvage determiner use Diabetes mellitus complication status: with kidney complications Diabetes mellitus complication detail: with chronic kidney disease Chronic kidney disease stage: stage 3 (moderate) Chronic kidney disease stage 3 subtype: stage 3b (GFR 30-44)
[2020-11-08] MEDS: cefTRIAXone 2,000 MG in sodium chloride 0.9% (plus) 50 ML 100 MG IV (18:11)
[2020-11-08] MEDS: enoxaparin 40 mg/0.4 mL Syringe SUBCUT (18:11)
--- NOTE | 2020-11-08 19:06 | P.CONIM_ITS ---
Providers/Reason For Consult Consulting Physican/Specialty*: Hiwot Trejo MD Reason for Consult*: Abx recommendations for osteomyelitis Attending Physician: David Guerra MD Primary Care Provider: Jose Manuel Mooney MD History of Present Illness History of Present Illness Rhett Cotto is a 79 year old male with past medical history as noted below who was recently admitted to the hospital between October 17 to November 02, 2020 after presenting to the hospital with left lower extremity cellulitis, gangrene and evidence of osteomyelitis of the calcaneum with sepsis and polymicrobial bacteremia. He underwent debridement of his wound with Dr. Perez on October 20, 2020. This ulcer had previously been present around 2 months duration, unknown etiology. 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 Hospital course was also noted for development of stress test, A. fib with RVR, oliguric MICHAEL. He was discharged to skilled facility with a PICC in place and recommendation to continue 6 weeks of IV linezolid and Unasyn and close follow-up with wound care. He was also supposed to follow-up with infectious disease office as an outpat ient, however has not been established care yet. It appears he signed out AMA nursing facility and went home, prescriptions were converted to Augmentin and linezolid orally. To the hospital on November 05, 2020 upon the insistence of his . He endorsed weakness and lethargy without any other complaints. He has been receiving treatment with Zyvox and Unasyn thus far. Infectious disease services consulted for antibiotic recommendations at the time of discharge to establish ID care. He still has his PICC line in place from last admission. Review of Systems General: Reports: 10 or more systems reviewed and unremarkable except in HPI and below Const: Denies: fever(s), chills or body aches Eyes: Denies: change in vision, blurry vision or photophobia ENMT: Reports: hoarseness; Denies: throat pain, enlarged tonsils, odynophagia or nasal congestion Card: Denies: chest pain, palpitations, irregular heart rhythm, edema, swelling of feet/ankles, lightheadedness, pre-syncope, dyspnea on exertion or orthopnea Resp: Denies: dyspnea, productive cough, non-productive cough, wheezing, stridor, pain on inspiration, change in phlegm color, hemoptysis or chest congestion GI: Denies: abdominal pain, nausea, vomiting, hematemesis, coffee ground emesis, dysphagia, heartburn, diarrhea, constipation, GI cramping, change in stool character, hematochezia or melena : Denies: flank pain, dysuria, urinary frequency, urinary urgency, urinary hesitancy or hematuria Musc: Denies: neck pain, back pain, extremity pain, joint swelling, joint warmth or deformity Neuro: Denies: headache(s), numbness in extremities, weakness in extremities, sensory changes, difficulty walking, frequent falls, dizziness, vertigo, behavioral changes, Slurred speech present or seizure-like activity Psych: Denies: anxiety, depression, suicidal ideation or homicidal ideation Endo: Denies: polyuria, polydipsia, tired all the time, cold intolerance or hot flashes Rudi/Lymph: Denies: easy bruising or easy bleeding Meds/Allergies Home Medications and Allergies Home Medications Medication Instructions Recorded Confirmed Last Taken Type spironolactone 25 mg PO DAILY@08/28/20 11/06/20 10/17/20 History levothyroxine 150 mcg PO DAILY@10/17/20 11/06/20 Unknown History atorvastatin 40 mg PO BEDTIME 30 Days #30 tab 10/28/20 11/06/20 11/02/20 Rx clopidogrel 75 mg PO DAILY 30 Days #30 tab 10/28/20 11/06/20 11/03/20 Rx insulin aspart U-100 [Novolog See Rx Instructions .ROUTE 10/28/20 11/06/20 11/03/20 Rx U-100 Insulin aspart] .COMPLEX #10 ml metoprolol tartrate 12.5 mg PO BID@0900,2100 30 Days 10/28/20 11/06/20 11/03/20 Rx #60 tab nitroglycerin 0.4 mg SUBLINGUAL Q5M PRN 30 Days 10/28/20 11/06/20 Unknown Rx #30 tab polyethylene glycol 3350 17 g PO DAILY 30 Days #30 ea 10/28/20 11/06/20 11/03/20 Rx Lactobacillus acidoph-L.bulgar 1 tab PO BID #60 tab 11/02/20 11/06/20 11/03/20 Rx acetaminophen 325 - 650 mg PO Q4H PRN #60 tab 11/02/20 11/06/20 Unknown Rx allopurinol 100 mg PO DAILY #30 tab 11/02/20 11/06/20 11/03/20 Rx ampicillin-sulbactam [Unasyn] 1.5 g IV Q12H 28 Days ea 11/02/20 11/06/20 11/03/20 Rx ergocalciferol (vitamin D2) 50,000 unit PO Q7D #4 cap 11/02/20 11/06/20 Unknown Rx [Vitamin D2] linezolid in dextrose 5% [Zyvox] 600 mg IV Q12H 28 Days ml 11/02/20 11/06/20 11/03/20 Rx sennosides-docusate sodium [Stool 1 tab PO DAILY #30 tab 11/02/20 11/06/20 11/03/20 Rx Softener-Laxative] sodium hypochlorite [HySept] 1 applic TOPICAL 0900,2100 #473 ml 11/02/20 Unknown Rx amoxicillin-pot clavulanate 1 tab PO BID 28 Days #56 tab 11/04/20 11/06/20 Unknown Rx [Augmentin] linezolid [Zyvox] 600 mg PO BID 28 Days #56 tab 11/04/20 11/06/20 Unknown Rx aspirin [Aspir-81] 81 mg PO DAILY@07 11/06/20 11/06/20 Unknown History furosemide 40 mg PO BID@,11/06/20 11/06/20 Unknown History hydrocodone-acetaminophen [[place]] 1 tab PO Q6H PRN 11/06/20 11/06/20 Unknown History metformin 500 mg PO BID@,11/06/20 11/06/20 Unknown History omeprazole 20 mg PO DAILY@11/06/20 11/06/20 Unknown History potassium chloride 20 meq PO BID@,11/06/20 11/06/20 Unknown History Allergies Allergy/AdvReac Type Severity Reaction Status Date / Time metronidazole [From Flagyl] Allergy ALGY-Rash Verified 10/22/20 10:13 Current Medications Current Medications Generic Name Dose Route Start Last Admin Trade Name Freq PRN Reason Stop Dose Admin Acetaminophen 500 mg 11/05/20 23:58 11/07/20 02:06 Acetaminophen 500 Mg Tablet PO 500 mg Q4H PRN Administration Mild Pain Or Increase Temp Hydrocodone Bitart/Acetaminophen 1 tab 11/05/20 23:58 11/08/20 02:59 Hydrocodone-Acetaminophen 5-325 Mg Tablet PO 1 tab Q6H PRN Administration Pain Allopurinol 100 mg 11/06/20 09:00 11/08/20 08:25 Allopurinol 100 Mg Tablet PO 100 mg DAILY NICHOLAS Administration Aspirin 81 mg 11/07/20 07:00 11/08/20 08:24 Aspirin 81 Mg Ec Tablet PO 81 mg DAILY@07 NICHOLAS Administration Atorvastatin Calcium 40 mg 11/06/20 21:00 11/07/20 21:30 Atorvastatin 40 Mg Tablet PO 40 mg BEDTIME NICHOLAS Administration Clopidogrel Bisulfate 75 mg 11/06/20 09:00 11/08/20 08:25 Clopidogrel 75 Mg Tablet PO 75 mg DAILY NICHOLAS Administration Enoxaparin Sodium 40 mg 11/08/20 18:00 11/08/20 18:11 Enoxaparin 40 Mg/0.4 Ml Syringe SUBCUT 40 mg Q24H NICHOLAS Administration Ferrous Gluconate 324 mg 11/06/20 18:00 11/08/20 18:10 Ferrous Gluconate 324 Mg Tablet PO 324 mg BIDWM NICHOLAS Administration Furosemide 40 mg 11/08/20 18:00 11/08/20 18:11 Furosemide 40 Mg Tablet PO 40 mg BID NICHOLAS Administration Ceftriaxone Sodium 2,000 mg/ 50 mls @ 100 mls/hr 11/08/20 17:30 11/08/20 18:57 Sodium Chloride IV Infused Q24H NICHOLAS Infusion Protocol Vancomycin HCl 1,750 mg/ 250 mls @ 166.667 mls/hr 11/08/20 18:00 11/08/20 18:52 Sodium Chloride IV 166.7 mls/hr Q24H NICHOLAS Administration Insulin Aspart 0 unit 11/06/20 08:00 11/08/20 18:23 Insulin Aspart 100 Unit/1 Ml SUBCUT Not Given WM&BEDTIME NICHOLAS Protocol Levothyroxine Sodium 150 mcg 11/06/20 09:00 11/08/20 08:24 Levothyroxine 75 Mcg Tablet PO 150 mcg DAILY NICHOLAS Administration Senna/Docusate Sodium 1 tab 11/06/20 09:00 11/08/20 08:27 Sennosides-Docusate Tablet PO Not Given DAILY NICHOLAS Sodium Hypochlorite 1 applic 11/06/20 21:00 11/08/20 08:23 Sodium Hypochlorite 0.25% Btl 473 Ml TOPICAL 1 applic TID NICHOLAS Administration Zolpidem Tartrate 5 mg 11/08/20 02:20 11/08/20 02:59 Zolpidem 5 Mg Tablet PO 5 mg BEDTIME PRN Administration INSOMNIA PFSH Acute PFSH: Medical History Anaerobic bacteremia Anemia ASHD (arteriosclerotic heart disease) Atrial fibrillation Cardiomyopathy CHF (congestive heart failure) Cleft palate and cleft lip Diabetes Dyslipidemia Enterococcus faecalis infection HTN (hypertension) Hypothyroid MRSA (methicillin resistant Staphylococcus aureus) infection Myocardial infarction Peripheral arterial disease Proteus infection Surgical History Cleft palate Surgically repaired History of tonsillectomy Leg fracture, left Lower leg fractures repaired with rods and bone grafts S/P peripheral artery angioplasty (~10/2020) S/P PTCA (percutaneous transluminal coronary angioplasty) Family History Other Diabetes Social History Smoking and tobacco status: never smoked Alcohol intake: current Alcohol intake frequency: holidays/special occasions only Household members: spouse Marital status: Vitals/I&O/Wt Last Vital Signs Temp 98.3 F 11/08/20 15:09 Pulse 61 11/08/20 15:09 Resp 19 H 11/08/20 15:09 BP 152/81 11/08/20 15:09 Pulse Ox 96 11/08/20 15:09 11/08/20 11/08/20 11/08/20 06:59 14:59 22:59 Intake Total 550 / 1500 710 / 710 290 / 1000 Output Total 250 / 600 1110 / 1110 200 / 1310 Balance 300 / 900 -400 / -400 90 / -310 Physical Exam Narrative: EXAM NARRATIVE: GEN: Awake, alert and oriented, no acute distress CVS: S1S2 N RS: CTA B/L Abd: Soft, nt/nd , bs+ CHART CHANGER: no focal neuro deficits Data Micro: Micro: Microbiology 11/06/20 17:19 Nose MRSA Culture - Final 11/05/20 21:43 Blood Blood Culture - Preliminary NEGATIVE TO DATE 11/05/20 21:10 Blood Blood Culture - Preliminary NEGATIVE TO DATE Bone culture: 10/20/20 Gram Stain Final 10/20/20-1122 Result MODERATE WHITE BLOOD CELLS MODERATE GRAM POSITIVE COCCI IN PAIRS & CHAINS RARE GRAM POSITIVE RODS RARE GRAM NEGATIVE RODS Wound Culture Final 10/23/20-1244 Organism 1 Proteus mirabilis Growth MODERATE Organism 2 Methicillin Resis Staph Aureus Growth FEW Organism 3 Enterococcus faecalis Growth MODERATE ISOLATE 1: FOR SUSCEPTIBILITY RESULTS, SEE [id number]. CRITICAL RESULT YES/NO: YES CRITICAL CALLED BY: MAGGIE TO AND READ BACK BY: ROSMERY DATE: 10/22/20 TIME: 851 CRITICAL RES YES/NO: YES 2ND CRITICAL CALLED BY: GEOFFREY WADE TO AND READ BACK BY: BRITTANEY DATE: 10/23/20 2ND CRITICAL TIME: 1243 MRSA E faecalis M.I.C. RX M.I.C. RX --------- ------ --------- ------ * Ampicillin >8 R <=2 S * Ciprofloxacin >2 R * Clindamycin >4 R * Erythromycin >4 R * Gentamicin <=4 S * Levofloxacin >4 R * Linezolid 2 S 2 S * Oxacillin >2 R * Penicillin >8 R 2 S * Rifampin <=1 S * Tetracycline <=4 S * Trimethoprim/Sulfamethoxazole <=0.5/9.5 S Vancomycin 1 S 2 S Gentamicin Synergy Screen <=500 S Daptomycin 1 S 1 S Enterococcus faecalis: Gram Pos Combo 33-MScan Gentamicin Synergy Screen S Wound Culture Preliminary (changed) 10/22/20-851 Organism 1 Proteus mirabilis Growth MODERATE Organism 2 Staphylococcus aureus Growth FEW Organism 3 Enterococcus species Growth MODERATE Blood Culture Final 10/23/20-0942 3 OF 4 BOTTLES POSITIVE DIRECT GRAM STAIN: GRAM POSITIVE RODS IN 1 BOTTLE AND GRAM NEGATIVE RODS IN 2 BOTTLES ISOLATE 1: PROBABLE CONTAMINANT. ISOLATE 3: SEE [id number] FOR SUSCEPTIBILITY RESULTS. Organism 1 Bacillus sp not b. anthracis Growth IN 1 BOTTLE, THIS SET Organism 2 Bacteroides fragilis Growth IN 1 BOTTLE, THIS SET Organism 3 Proteus mirabilis Growth IN 1 BOTTLE, OTHER SET Gram Stain Charge Charge for Gram Stain CRITICAL RESULT YES/NO: YES CRITICAL CALLED BY: MAGGIE TO AND READ BACK BY: TODD DATE: 10/19/20 TIME: 1345 Blood Culture Preliminary (changed) 10/22/20-0838 3 OF 4 BOTTLES POSITIVE DIRECT GRAM STAIN: GRAM POSITIVE RODS IN 1 BOTTLE AND GRAM NEGATIVE RODS IN 2 BOTTLES ISOLATE 1: PROBABLE CONTAMINANT. ISOLATE 3: SEE [id number] FOR SUSCEPTIBILITY RESULTS. Organism 1 Bacillus sp not b. anthracis Growth IN 1 BOTTLE, THIS SET Organism 2 Bacteroides fragilis Growth IN 1 BOTTLE, THIS SET Organism 3 Proteus mirabilis Growth IN 1 BOTTLE, OTHER SET Gram Stain Charge Charge for Gram Stain CRITICAL RESULT YES/NO: YES CRITICAL CALLED BY: MAGGIE TO AND READ BACK BY: TODD DATE: 10/19/20 TIME: 1345 Blood Culture Preliminary (changed) 10/21/20-1653 3 OF 4 BOTTLES POSITIVE DIRECT GRAM STAIN: GRAM POSITIVE RODS IN 1 BOTTLE AND GRAM NEGATIVE RODS IN 2 BOTTLES ISOLATE 1: PROBABLE CONTAMINANT. ISOLATE 3: RESULTS TO FOLLOW. Organism 1 Corynebacterium species Growth IN 1 BOTTLE, THIS SET Organism 2 Bacteroides fragilis Growth IN 1 BOTTLE, THIS SET Organism 3 Gram Negative Rods Growth IN 1 BOTTLE, OTHER SET CRITICAL RESULT YES/NO: YES CRITICAL CALLED BY: MAGGIE TO AND READ BACK BY: TODD DATE: 10/19/20 TIME: 1345 Blood Culture Preliminary (changed) 10/21/20-0945 3 OF 4 BOTTLES POSITIVE DIRECT GRAM STAIN: GRAM POSITIVE RODS IN 1 BOTTLE AND GRAM NEGATIVE RODS IN 2 BOTTLES ISOLATE 1: PROBABLE CONTAMINANT. ISOLATES 2 AND 3: RESULTS TO FOLLOW. Organism 1 Corynebacterium species Growth IN 1 BOTTLE, THIS SET Organism 2 Anaerobic gram negative rods Growth IN 1 BOTTLE, THIS SET Organism 3 Gram Negative Rods Growth IN 1 BOTTLE, OTHER SET CRITICAL RESULT YES/NO: YES CRITICAL CALLED BY: MAGGIE TO AND READ BACK BY: TODD DATE: 10/19/20 TIME: 1345 Blood Culture Preliminary (changed) 10/20/20-1103 2 OF 4 BOTTLES POSITIVE FROM THE SAME SET DIRECT GRAM STAIN: GRAM POSITIVE RODS IN 1 BOTTLE AND GRAM NEGATIVE RODS IN 1 BOTTLE ISOLATE 1: PROBABLE CONTAMINANT. ISOLATE 2: RESULTS TO FOLLOW. Organism 1 Corynebacterium species Growth IN 1 BOTTLE Organism 2 Anaerobic gram negative rods Growth IN 1 BOTTLE CRITICAL RESULT YES/NO: YES CRITICAL CALLED BY: MAGGIE TO AND READ BACK BY: TODD DATE: 10/19/20 TIME: 1345 Blood Culture Preliminary (changed) 10/19/20-1347 2 OF 4 BOTTLES POSITIVE FROM THE SAME SET DIRECT GRAM STAIN: GRAM POSITIVE RODS IN 1 BOTTLE AND GRAM NEGATIVE RODS IN 1 BOTTLE ISOLATE 1: PROBABLE CONTAMINANT. ISOLATE 2: RESULTS TO FOLLOW. Organism 1 Corynebacterium species Growth IN 1 BOTTLE Organism 2 Gram Negative Rods Growth IN 1 BOTTLE Blood Culture Final 10/23/20-0943 3 OF 4 BOTTLES POSITIVE DIRECT GRAM STAIN: GRAM POSITIVE RODS IN 1 BOTTLE AND GRAM NEGATIVE RODS IN 2 BOTTLES ISOLATE 1: PROBABLE CONTAMINANT. Organism 1 Bacillus sp not b. anthracis Growth IN 1 BOTTLE, OTHER SET Organism 2 Bacteroides fragilis Growth IN 1 BOTTLE, OTHER SET Organism 3 Proteus mirabilis Growth IN 1 BOTTLE, THIS SET Gram Stain Charge Charge for Gram Stain CRITICAL RESULT YES/NO: YES CRITICAL CALLED BY: MAGGIE TO AND READ BACK BY: TODD DATE: 10/19/20 TIME: 1345 P mirabili M.I.C. RX --------- ------ * Amikacin <=16 S * Amoxicillin/Clavulanate <=8/4 S * Ampicillin <=8 S * Ampicillin/Sulbactam <=8/4 S * Aztreonam <=4 S * Cefepime <=8 S * Ceftriaxone <=1 S * Cefuroxime <=4 S * Ciprofloxacin <=1 S * Gentamicin <=2 S * Levofloxacin <=2 S * Tetracycline >8 R * Trimethoprim/Sulfamethoxazole <=2/38 S * Piperacillin/Tazobactam <=16 S Blood Culture Preliminary (changed) 10/22/20-0836 3 OF 4 BOTTLES POSITIVE DIRECT GRAM STAIN: GRAM POSITIVE RODS IN 1 BOTTLE AND GRAM NEGATIVE RODS IN 2 BOTTLES ISOLATE 1: PROBABLE CONTAMINANT. Organism 1 Bacillus sp not b. anthracis Growth IN 1 BOTTLE, OTHER SET Organism 2 Bacteroides fragilis Growth IN 1 BOTTLE, OTHER SET Organism 3 Proteus mirabilis Growth IN 1 BOTTLE, THIS SET Gram Stain Charge Charge for Gram Stain CRITICAL RESULT YES/NO: YES CRITICAL CALLED BY: MAGGIE TO AND READ BACK BY: TODD DATE: 10/19/20 TIME: 1345 P mirabili M.I.C. RX --------- ------ * Amikacin <=16 S * Amoxicillin/Clavulanate <=8/4 S * Ampicillin <=8 S * Ampicillin/Sulbactam <=8/4 S * Aztreonam <=4 S * Cefepime <=8 S * Ceftriaxone <=1 S * Cefuroxime <=4 S * Ciprofloxacin <=1 S * Gentamicin <=2 S * Levofloxacin <=2 S * Tetracycline >8 R * Trimethoprim/Sulfamethoxazole <=2/38 S * Piperacillin/Tazobactam <=16 S Blood Culture Preliminary (changed) 10/21/20-165 3 OF 4 BOTTLES POSITIVE DIRECT GRAM STAIN: GRAM POSITIVE RODS IN 1 BOTTLE AND GRAM NEGATIVE RODS IN 2 BOTTLES ISOLATE 1: PROBABLE CONTAMINANT. ISOLATE 3: RESULTS TO FOLLOW. Organism 1 Corynebacterium species Growth IN 1 BOTTLE, OTHER SET Organism 2 Bacteroides fragilis Growth IN 1 BOTTLE, OTHER SET Organism 3 Gram Negative Rods Growth IN 1 BOTTLE, THIS SET CRITICAL RESULT YES/NO: YES CRITICAL CALLED BY: MAGGIE TO AND READ BACK BY: TODD DATE: 10/19/20 TIME: 134 Blood Culture Preliminary (changed) 10/21/20-943 3 OF 4 BOTTLES POSITIVE DIRECT GRAM STAIN: GRAM POSITIVE RODS IN 1 BOTTLE AND GRAM NEGATIVE RODS IN 2 BOTTLES ISOLATE 1: PROBABLE CONTAMINANT. ISOLATES 2 AND 3: RESULTS TO FOLLOW. Organism 1 Corynebacterium species Growth IN 1 BOTTLE, OTHER SET Organism 2 Anaerobic gram negative rods Growth IN 1 BOTTLE, OTHER SET Organism 3 Gram Negative Rods Growth IN 1 BOTTLE, THIS SET CRITICAL RESULT YES/NO: YES CRITICAL CALLED BY: MAGGIE TO AND READ BACK BY: TODD DATE: 10/19/20 TIME: 134 Other Data: Attestation for Other Data: I personally reviewed and interpreted the following: Other data: [address] [address] XRay Report Signed Patient: Jeff Cotto #: [id number] : 2Acct#:[id number] Age/Sex: 79 / MADM Date: 10/17/20 Loc: [facility]/Bed: 266-[address]: Coby Miner MD Ordering Provider/Ordering MD: Mauri Perez DPM Date of Service: 11/02/20 Procedure(s): XR foot LT min 3V* [id number] Accession Number(s): [id number] Report Number: [id number] WS: [id number] Left foot, Clinical Data: left heel ulcer eval Comparison: None. Findings: There is air which appears to penetrate into the calcaneus which is consistent with osteomyelitis. There are flexion deformities of the second through fifth toes. Soft tissue swelling about the foot is seen. There is an old fracture of the distal left tibia. No new fractures are seen. There are calcifications in the zepeda of small vessels. XR/XR foot LT min 3V* [id number] Impression: 1. Superficial ulcer which appears to penetrate into the posterior calcaneus and is consistent with osteomyelitis. 2. Diffuse soft tissue swelling about the left foot. 3. Flexion deformities of the second through fifth toes. A&P Assessment and plan (1) Osteomyelitis: Status: Acute Qualifiers: Laterality: left Osteomyelitis location: foot Osteomyelitis type: other chronic Qualified Code(s): M86.672 - Other chronic osteomyelitis, left ankle and foot (2) Peripheral arterial disease: Status: Chronic (3) Ischemic cardiomyopathy: Status: Chronic (4) Diabetes mellitus with diabetic polyneuropathy: Status: Chronic Qualifiers: Diabetes mellitus terminal carman insulin use: with shelter use Diabetes mellitus type: type 2 Qualified Code(s): E11.42 - Type 2 diabetes mellitus with diabetic polyneuropathy; Z79.4 - intermediate (current) use of insulin (5) CKD (chronic kidney disease): Status: Chronic Qualifiers: Chronic kidney disease stage: stage 3 (moderate) Qualified Code(s): N18.3 - Chronic kidney disease, stage 3 (moderate) Additional A&P Information 79-year-old male with multiple comorbidities as noted above, chiefly type 2 diabetes mellitus with diabetic neuropathy, and peripheral artery disease, status post recent percutaneous intervention for the left leg, chronic ulceration of the left heel, status post recent I&D with bone biopsy of the left calcaneus performed on October 2020. Bone cultures from the time (10/20) with Proteus mirabilis, MRSA, Enterococcus faecalis. Blood cultures from the same admission on October 17, 2020 with polymicrobial including Proteus mirabilis, Bacteroides fragilis and bacillus species. Blood culture negative on October 19, 2020. Date of debridement October 20, 2020. Blood cultures from current admission negative to date. Treatment history from October 20, 2020: Piperacillin tazobactam and vancomycin until November 01, 2020, changed to Unasyn and linezolid upon discharge. None brief interruption in treatment for 3 to 4 days when patient signed out of medical facility AMA. Thus far patient has completed 2 weeks of adequate therapy from date of debridement and clearance of cultures. Recommend to continue treatment with IV antibiotics for an additional 4 weeks to cover total for 6 weeks for osteomyelitis of the calcaneum.(10/20-December 01). Change antibiotics to ceftriaxone 2 g IV daily and vancomycin 1750 mg q24h While on the above antibiotics, check weekly creatinine, vancomycin trough, WBC and platelet count. Please send these labs only to the infectious disease clinic for review. Other home health orders to be coordinated with PCP office. follow up in infcetious disease clinic in 4 weeks Consult Attestations Medical Necessity Statement: per admitting team note Coding Level of Care Code Acute Home Health Speech Therapist for Chaitanya Parsons Diagnoses Osteomyelitis M86.672 Laterality: left Osteomyelitis location: foot Osteomyelitis type: other chronic Peripheral arterial disease I73.9 Ischemic cardiomyopathy I25.5 Diabetes mellitus with diabetic polyneuropathy E11.42; Z79.4 Diabetes mellitus shelter insulin use: with terminal carman use Diabetes mellitus type: type 2 CKD (chronic kidney disease) N18.3 Chronic kidney disease stage: stage 3 (moderate)
[2020-11-08] MEDS: atorvastatin 40 mg Tablet PO (20:03)
[2020-11-08 20:24] LABS: Glucose Point of Care 206 mg/dL (70-110)
[2020-11-09] VITALS (9 sets, daily range): BP systolic 135–151; BP diastolic 58–108; PULSE 52–68; RESP 6–20; TEMP 36.5–37.1; O2SAT 94–96
[2020-11-09 05:39] LABS: Basophils # 0.1 10^3/uL (0.0-0.1); Basophils % 1.1 %; Eosinophils # 0.2 10^3/uL (0.0-0.8); Eosinophils % 4.3 %; Hematocrit 28.1 % (42.0-52.0); Hemoglobin 8.9 g/dL (11.7-16.6); Lymphocytes # 1.3 10^3/uL (0.8-4.8); Lymphocytes % 24.6 %; Mean Corpuscular HGB Conc 31.7 g/dL (30.0-36.0); Mean Corpuscular Hemoglobin 29.8 pg (28.0-34.0); Mean Platelet Volume 11.1 fL (7.4-10.4); Monocytes # 0.6 10^3/uL (0.2-0.9); Monocytes % 10.3 %; Neutrophils # 3.16 10^3/uL (1.8-7.7); Neutrophils % 59.3 %; Nucleated Red Blood Cells % 0 %; Platelet Count 151 10^3/cmm (130-400); Red Blood Count 2.99 10^6/uL (4.1-5.3); Red Cell Distribution Width 19.4 % (12.1-15.1); White Blood Count 5.3 10^3/uL (4.0-10.0)
[2020-11-09 05:46] LABS: Alanine Aminotransferase 7 U/L (0-41); Albumin Level 2.9 g/dL (3.5-5.2); Alkaline Phosphatase 125 IU/L (40-130); Anion Gap 8.9 (5-19); Aspartate Amino Transferase 15 U/L (0-40); Blood Urea Nitrogen 12 mg/dL (8-23); Calcium 7.7 mg/dL (8.5-10.5); Carbon Dioxide 29 mmol/L (22-29); Chloride 97 mmol/L (98-107); Globulin 2.8 g/dL (1.3-4.6); Glucose 101 mg/dL (65-115); Osmolality Calculated 272 mOsm/kg (285-295); Potassium 3.9 mmol/L (3.5-5.1); Sodium 131 mmol/L (136-145); Total Bilirubin 0.4 mg/dL (0.15-1.2); Total Protein 5.7 g/dL (6.6-8.7)
[2020-11-09 07:20] LABS: Glucose Point of Care 132 mg/dL (70-110)
--- NOTE | 2020-11-09 08:03 | PC.SOCIAL ---
IMM Update Pg. 2 of IMM updated and reviewed with patient who verbalized understanding. Copy provided.
[2020-11-09] MEDS: clopidogrel 75 mg Tablet PO (08:24)
[2020-11-09] MEDS: allopurinol 100 mg Tablet PO (08:24)
[2020-11-09] MEDS: aspirin 81 mg EC Tablet PO (08:24)
[2020-11-09] MEDS: ferrous gluconate 324 mg Tablet PO ×2 (08:24→18:36)
[2020-11-09] MEDS: levothyroxine 75 mcg Tablet 150 MCG PO (08:24)
[2020-11-09] MEDS: FUROsemide 40 mg Tablet PO ×2 (08:25→18:28)
[2020-11-09] MEDS: HYDROcodone-acetaminophen 5-325 mg Tablet 1 TAB PO ×2 (09:25→18:27)
[2020-11-09] MEDS: sodium hypochlorite 0.25% Btl 473 mL 1 APPLIC TOPICAL ×3 (09:26→21:13)
[2020-11-09 10:53] LABS: Glucose Point of Care 167 mg/dL (70-110)
--- NOTE | 2020-11-09 16:06 | PM.PN ---
Subjective Subjective: Interval history: No events overnight. Patient lying comfortably in chair today during examination. Finding it difficult to arrange home health for patient. Denies any nausea vomiting, headache. Vitals/I&O/Wt Last Vital Signs Temp 98.4 F 11/09/20 11:17 Pulse 58 L 11/09/20 11:17 Resp 18 11/09/20 11:17 BP 146/86 11/09/20 11:17 Pulse Ox 94 11/09/20 11:17 11/09/20 11/09/20 11/09/20 06:59 14:59 22:59 Intake Total 270 / 1520 720 / 720 Balance 270 / 110 720 / 720 Physical Exam Narrative: EXAM NARRATIVE: General: No acute distress, AO x3 HEENT: PERRLA, pupils bilaterally equal and reactive Chest: Normal vesicular breath sounds, no added sounds, equal good air entry bilaterally CVS: S1-S2 irregularly irregular, no murmurs, no tachycardia, no gallops, no rubs Abdomen: Soft, obese, nontender, no organomegaly, bowel sounds present Neuro: No focal deficits, no facial deformity, AO x3, power 5/5 in all limbs Extremities:Full-thickness heel ulcer of left side with exposure to bone, right heel round shape open ulcer with exposure to subcutaneous tissue and fat no active purulent drainage, Dorsalis pedis pulses 1+ bilaterally Venous stasis dermatitis Data : 11/09/20 04:21 11/09/20 04:21 A&P Assessment and plan (1) Osteomyelitis: Status: Acute Qualifiers: Osteomyelitis type: other chronic Osteomyelitis location: foot Laterality: left Qualified Code(s): M86.672 - Other chronic osteomyelitis, left ankle and foot (2) Non-pressure chronic ulcer of other part of right foot with necrosis of bone: Status: Acute (3) Anaerobic bacteremia: History of 1 previous admission 2 weeks ago Status: Acute (4) Proteus infection: Status: Acute (5) MRSA (methicillin resistant Staphylococcus aureus) infection: Status: Acute (6) Enterococcus faecalis infection: Status: Acute (7) Contrast dye induced nephropathy: Status: Acute (8) Hypothyroid: Status: Chronic Qualifiers: Hypothyroidism type: acquired Qualified Code(s): E03.9 - Hypothyroidism, unspecified (9) Peripheral arterial disease: Status: Chronic (10) Ischemic cardiomyopathy: Status: Chronic (11) Type 2 diabetes mellitus: Status: Chronic Qualifiers: Diabetes mellitus penitentiary insulin use: with marine oil terminal superintendent use Diabetes mellitus complication status: with kidney complications Diabetes mellitus complication detail: with chronic kidney disease Chronic kidney disease stage: stage 3 (moderate) Chronic kidney disease stage 3 subtype: stage 3b (GFR 30-44) Qualified Code(s): E11.22 - Type 2 diabetes mellitus with diabetic chronic kidney disease; N18.32 - Chronic kidney disease, stage 3b; Z79.4 - computer terminal operator (current) use of insulin Additional A&P Information Osteomyelitis of left calcaneal area: Recent bacteremia. with advised to take Zyvox and Unasyn for 6 weeks through PICC line for osteomyelitis. He took an antibiotic course for around 3 days and left AMA after which he was off antibiotics for 2 days. No active signs of infection or sepsis at present. Blood cultures have remained negative. Dressing of wound as per Dr. Perez from last admission [address] Trejo recommendation. Continue with ceftriaxone 2 g IV daily and vancomycin keeping trough around 15. Contrast-induced nephropathy on previous admission: Creatinine 1.3 today. Mild signs of fluid overload. Start home Lasix 40 mg twice daily. Will monitor kidney functions. Peripheral arterial disease status post balloon angioplasty Bilateral diabetic foot ulcers showing granulation tissue, dorsalis pedis pulses 1+ bilaterally No active signs of ischemia or gangrene. Continue statin, Plavix. Ischemic cardiomyopathy with positive stress test: Echocardiogram from April 2020 shows an EF of 25 to 30% with global LV hypokinesia with moderate pulmonary hypertension, moderate TR with elevated RA pressures. Elevated troponin, no active chest pain EKG without ischemic or infarctive change, A. fib without RVR, heart rate [address] Barfield from cardiology. He recommends patient to follow-up as an outpatient with Dr. Nayak with his primary manager bilingual in next 2 to 3 weeks for further management given very recent contrast-induced nephropathy. A. fib without RVR: Continue with metoprolol at home dose. We will switch him to Lovenox in case he would go for cardiac cath, Consistent carb diet Moderate sliding scale DVT prophylaxis not indicated Full code Discharge planning: Plan to discharge patient home most likely tomorrow. Finding it difficult to arrange home health for patient has been denied by multiple home with companies. Patient denied at retirement as well. Will most likely need help of infusion company and then follow-up at wound care clinic and with Dr. Perez and Dr. Trejo as an outpatient Attestations Medical Necessity Statement*: Patient requires further hospitalization for management of osteomyelitis of left calcaneal area while safe discharge planning is sought. Time Spent in Patient Care: Greater than 35 minutes (>than 50% of time spent in counselling and/or direct pt care on unit). Coding Level of Care Code Acute [facility] Fwd Diagnoses Osteomyelitis M86.672 Osteomyelitis type: other chronic Osteomyelitis location: foot Laterality: left Non-pressure chronic ulcer of other part of right foot with necrosis of bone L97.514 Anaerobic bacteremia R78.81 Proteus infection A49.8 MRSA (methicillin resistant Staphylococcus aureus) infection A49.02 Enterococcus faecalis infection B95.2 Contrast dye induced nephropathy N14.1; T50.8X5A Hypothyroid E03.9 Hypothyroidism type: acquired Peripheral arterial disease I73.9 Ischemic cardiomyopathy I25.5 Type 2 diabetes mellitus E11.22; N18.32; Z79.4 Diabetes mellitus penitentiary insulin use: with marine oil terminal superintendent use Diabetes mellitus complication status: with kidney complications Diabetes mellitus complication detail: with chronic kidney disease Chronic kidney disease stage: stage 3 (moderate) Chronic kidney disease stage 3 subtype: stage 3b (GFR 30-44)
[2020-11-09 17:18] LABS: Glucose Point of Care 70 mg/dL (70-110)
[2020-11-09] MEDS: cefTRIAXone 2,000 MG in sodium chloride 0.9% (plus) 50 ML 100 MG IV (17:43)
[2020-11-09] MEDS: enoxaparin 40 mg/0.4 mL Syringe SUBCUT (18:28)
[2020-11-09 20:35] LABS: Glucose Point of Care 118 mg/dL (70-110)
[2020-11-09] MEDS: atorvastatin 40 mg Tablet PO (21:12)
--- NOTE | 2020-11-09 21:57 | NUR.SHIFT ---
NURSING NOTE: REPORT GIVEN TO DRE WONG ON MED SURG AT THIS TIME. ALL VS AND ASSESSMENTS CHARTED. PT TRANSP[facility] TO ROOM [facility] PER BED. NO DISTRESS NOTED AT TIME OF TRANSFER.
[2020-11-10] MEDS: zolpidem 5 mg Tablet PO (00:50)
[2020-11-10 04:00] VITALS: BP 130/80; PULSE 66; RESP 16; TEMP 36.8; O2SAT 96
[2020-11-10 06:20] LABS: Glucose Point of Care 98 mg/dL (70-110)
[2020-11-10 08:00] VITALS: BP 159/83; PULSE 73; RESP 17; TEMP 36.3; O2SAT 96
[2020-11-10] MEDS: sennosides-docusate Tablet 1 TAB PO (09:38)
[2020-11-10] MEDS: clopidogrel 75 mg Tablet PO (09:38)
[2020-11-10] MEDS: allopurinol 100 mg Tablet PO (09:38)
[2020-11-10] MEDS: levothyroxine 75 mcg Tablet 150 MCG PO (09:38)
[2020-11-10] MEDS: ferrous gluconate 324 mg Tablet PO ×2 (09:39→09:41)
[2020-11-10] MEDS: FUROsemide 40 mg Tablet PO (09:39)
[2020-11-10 11:03] LABS: Glucose Point of Care 148 mg/dL (70-110)
--- NOTE | 2020-11-10 11:35 | PC.OT ---
OT tx attempted. Pt lying in bed with eyes closed. He wakes to therapists voice and when asked if he was ready to get cleaned up he states I'm sick, can I do it later ? Pt encouraged to wake up and at least wash hands/face as lunch was coming. Pt does not answer but covers his face with the blankets. OT will be attempted again later today if possible.
[2020-11-10 12:00] VITALS: BP 158/96; PULSE 88; RESP 18; TEMP 36.7; O2SAT 92
[2020-11-10] MEDS: ondansetron 2 mg/ML SDV 2 mL 4 MG IVP (13:10)
[2020-11-10] MEDS: HYDROcodone-acetaminophen 5-325 mg Tablet 1 TAB PO (13:10)
[2020-11-10 13:19] LABS: Add Urine Microscopic? NO; Bilirubin Urine Neg (Negative); Blood Urine Neg (Negative); Glucose Urine UA Norm (Normal); Ketones Urine Negative (Negative); Leukocyte Esterase Urine Negative (Negative); Nitrate Urine Negative (Negative); Protein Urine Neg (Negative); Specific Gravity, Urine 1.015 (1.005-1.030); Urine Appearance Clear (CLEAR); Urine Color Yellow (Yellow); Urobilinogen Urine Norm (Negative); pH Urine 5 (5-7)
[2020-11-10 13:21] LABS: Charge for UA Resulting for Rev
--- NOTE | 2020-11-10 13:50 | PM.DCS ---
Discharge Providers Date of Admission: 11/06/20 10:20 Date of Discharge: November 10, 2020 Attending Provider at Admission: Stewart Walsh MD Attending Provider at Discharge: David Guerra MD Consults: ID: Dr. 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 Qualifiers: Diabetes mellitus type: type 2 Diabetes mellitus terminal computer operator insulin use: with longterm use Qualified Code(s): E11.42 - Type 2 diabetes mellitus with diabetic polyneuropathy; Z79.4 - FPC (current) use of insulin (5) CKD (chronic kidney disease): Status: Chronic Qualifiers: Chronic kidney disease stage: stage 3 (moderate) Qualified Code(s): N18.3 - Chronic kidney disease, stage 3 (moderate) Reason for Visit Reason for Visit: weakness Hospital Course Hospital Course Rhett Cotto is a 79 year old male with past medical history as noted below who was recently admitted to the hospital between October 17 to November 02, 2020 after presenting to the hospital with left lower extremity cellulitis, gangrene and evidence of osteomyelitis of the calcaneum with sepsis and polymicrobial bacteremia. He underwent debridement of his wound with Dr. Perez on October 20, 2020. This ulcer had previously been present around 2 months duration, unknown etiology. 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 Hospital course was also noted for development of stress test, A. fib with RVR, oliguric MICHAEL. He was discharged to skilled facility with a PICC in place and recommendation to continue 6 weeks of IV linezolid and Unasyn and close follow-up with wound care. He was also supposed to follow-up with infectious disease office as an outpatient, however has not been established care yet. It appears he signed out AMA nursing facility and went home, prescriptions were converted to Augmentin and linezolid orally. To the hospital on November 05, 2020 upon the insistence of his . He endorsed weakness and lethargy without any other complaints. He has been receiving treatment with Zyvox and Unasyn thus far. Patient was admitted to the floors for further management of osteomyelitis and reinitiating his antibiotics. He did not have any signs of sepsis on admission. Patient's wounds were dressed again as per recommendations from Dr. Perez from previous admission. ID was consulted and antibiotics were changed to vancomycin and ceftriaxone as per the culture results and ID recommendations with patient to follow-up with ID in 4 weeks. Patient is to continue these antibiotics for 4 weeks and while being on antibiotics to check weekly creatinine, Vanco trough, WBC and platelet count which will be followed at ID clinic. For safe discharge planning Case management was consulted. Unfortunately patient was declined by multiple nursing homes and home health services for various reasons. For safe discharge planning infusion center was arranged. Patient is to get dressings done at wound care center. He is to follow-up with Dr. Perez in 4 to 7 days, ID clinic in 4 weeks, his primary care provider in 4 to 7 days. He has been discharged hemodynamically stable condition. Physical Exam Narrative: EXAM NARRATIVE: General: No acute distress, AO x3 HEENT: PERRLA, pupils bilaterally equal and reactive Chest: Normal vesicular breath sounds, no added sounds, equal good air entry bilaterally CVS: S1-S2 irregularly irregular, no murmurs, no tachycardia, no gallops, no rubs Abdomen: Soft, obese, nontender, no organomegaly, bowel sounds present Neuro: No focal deficits, no facial deformity, AO x3, power 5/5 in all limbs Extremities:Full-thickness heel ulcer of left side with exposure to bone, right heel round shape open ulcer with exposure to subcutaneous tissue and fat no active purulent drainage, Dorsalis pedis pulses 1+ bilaterally Venous stasis dermatitis Discharge Data Data Completed and Pending: Completed Studies During Hospitalization Category Date Time Status XR chest 1V stephanie ble [id number] Urgent Exams 11/05/20 20:59 Completed Pending at discharge Category Date Time Status Blood Culture Sta t Lab 11/05/20 21:43 Results Vancomycin Trough Timed Lab 11/10/20 17:00 Ordered Labs from last 24 hours 11/10/20 11/10/20 11/10/20 12:35 10:53 06:09 POC Glucose 148 H 98 Urine Color Yellow Urine Appearance Clear Urine pH 5 Ur Specific Gravit y 1.015 Urine Protein Neg Urine Glucose (UA) Norm Urine Ketones Negative Urine Blood Neg Urine Nitrate Negative Urine Bilirubin Neg Prot Sulfosalicyli c Acd Urine Urobilinogen Norm Ur Leukocyte Syeda ase Negative 11/09/20 11/09/20 11/09/20 20:12 16:59 12:35 POC Glucose 118 H 70 Urine Color Cancelled Urine Appearance Cancelled Urine pH Cancelled Ur Specific Gravit y Cancelled Urine Protein Cancelled Urine Glucose (UA) Cancelled Urine Ketones Cancelled Urine Blood Cancelled Urine Nitrate Cancelled Urine Bilirubin Cancelled Prot Sulfosalicyli c Acd Cancelled Urine Urobilinogen Cancelled Ur Leukocyte Syeda ase Cancelled Vitals: Last Vital Signs Temp 98.0 F 11/10/20 12:00 Pulse 88 11/10/20 12:00 Resp 18 11/10/20 12:00 BP 158/96 11/10/20 12:00 Pulse Ox 92 11/10/20 12:00 Discharge Plan Discharge Patient Disposition: Home Condition: Stable Prescriptions: New ferrous gluconate 324 mg (37.5 mg iron) Tablet 324 mg PO BIDWM 30 Days Qty: 60 RF: 0 HySept 0.25 % Solution 1 applic topical TID 30 Days RF: 0 ceftriaxone 1 gram recon soln 2 g IV DAILY 28 Days Qty: 28 RF: 0 vancomycin 1.5 gram recon soln 1.75 g IV Q24H 28 Days Qty: 28 RF: 0 Continued spironolactone 25 mg tablet 25 mg PO DAILY@07 RF: 0 furosemide 40 mg tablet 40 mg PO BID@,16 RF: 0 potassium chloride 10 mEq tablet extended release 20 meq PO BID@,16 RF: 0 Aspir-81 81 mg Tablet,Delayed Release (Dr/Ec) 81 mg PO DAILY@07 RF: 0 [place] 7.5-325 mg Tablet 1 tab PO Q6H PRN (Reason: Pain) RF: 0 omeprazole 20 mg capsule,delayed release(DR/EC) 20 mg PO DAILY@07 RF: 0 metformin 500 mg tablet extended release 24 hr 500 mg PO BID@,16 RF: 0 levothyroxine 75 mcg tablet 150 mcg PO DAILY@07 RF: 0 atorvastatin 40 mg Tablet 40 mg PO BEDTIME 30 Days Qty: 30 RF: 0 clopidogrel 75 mg Tablet 75 mg PO DAILY 30 Days Qty: 30 RF: 0 insulin aspart U-100 [Novolog U-100 Insulin aspart] 100 unit/mL Solution See Rx Instructions .ROUTE .COMPLEX Qty: 10 RF: 0 metoprolol tartrate 25 mg Tablet 12.5 mg PO BID@0900,2100 30 Days Qty: 60 RF: 0 nitroglycerin 0.4 mg Tablet, Sublingual 0.4 mg sublingual Q5M PRN (Reason: Chest Pain) 30 Days Qty: 30 RF: 0 polyethylene glycol 3350 17 gram Powder In Packet 17 g PO DAILY 30 Days Qty: 30 RF: 0 acetaminophen 325 mg Tablet 325 - 650 mg PO Q4H PRN (Reason: Mild Pain Or Increase Temp) Qty: 60 RF: 0 allopurinol 100 mg Tablet 100 mg PO DAILY Qty: 30 RF: 0 ergocalciferol (vitamin D2) [Vitamin D2] 1,250 mcg (50,000 unit) Capsule 50,000 unit PO Q7D Qty: 4 RF: 0 Lactobacillus acidoph-L.bulgar 1 million cell Tablet 1 tab PO BID Qty: 60 RF: 0 sennosides-docusate sodium [Stool Softener-Laxative] 8.6-50 mg Tablet 1 tab PO DAILY Qty: 30 RF: 0 HySept 0.25 % Solution 1 applic topical 0900,2100 Qty: 473 RF: 0 Discontinued ampicillin-sulbactam [Unasyn] 15 gram recon soln 1.5 g IV Q12H 28 Days RF: 0 linezolid in dextrose 5% [Zyvox] 600 mg/300 mL Piggyback 600 mg IV Q12H 28 Days RF: 0 linezolid [Zyvox] 600 mg tablet 600 mg PO BID 28 Days Qty: 56 RF: 0 amoxicillin-pot clavulanate [Augmentin] 875-125 mg tablet 1 tab PO BID 28 Days Qty: 56 RF: 0 Discharge Orders: Discharge Order (Routine); Ordered 11/10/20 Ordered By: David uGerra Referrals: Mauri Perez DPM [Physician] - 7-10 days Hiwot Trejo MD [Hospitalist] - 1 month Jose Manuel Mooney MD [Primary Care Provider] - 7-10 days [facility], [Staff Physician] - 7-10 days Discharge Diet: Cardiac Discharge Activity: Resume usual activity Patient Instructions: Opioid Safety Activity Restrictions/Additional Instructions: While on the above antibiotics, check weekly creatinine, vancomycin trough, WBC and platelet count. Please send these labs only to the infectious disease clinic for review. Other home health orders to be coordinated with PCP office. follow up in infcetious disease clinic in 4 weeks Discharge Attestations Time Spent in Discharge Care*: greater than 30 min Specific Discharge Activities: educating patient, educating and/or supporting family/caregiver, discussing with pcp/other providers, discussing with adult protective caseworker/social workers/dc planners, documenting/other paperwork and evaluating patient/reviewing data Status at Discharge: Cognitive status at discharge: cognitively intact, Behavioral status at discharge: cooperative, Functional status at discharge: uses cane/walker Overall status at discharge: patient is back to baseline Quality Metrics Clinical Quality Measures During this hospital stay, did patient experience: None Coding Level of Care Code Acute [facility] DC note Diagnoses Osteomyelitis M86.672 Osteomyelitis type: other chronic Osteomyelitis location: foot Laterality: left Peripheral arterial disease I73.9 Ischemic cardiomyopathy I25.5 Diabetes mellitus with diabetic polyneuropathy E11.42; Z79.4 Diabetes mellitus type: type 2 Diabetes mellitus longterm insulin use: with terminal computer operator use CKD (chronic kidney disease) N18.3 Chronic kidney disease stage: stage 3 (moderate)
[2020-11-10] MEDS: sodium hypochlorite 0.25% Btl 473 mL 1 APPLIC TOPICAL (14:20)
--- NOTE | 2020-11-10 14:47 | PC.NURSE ---
Bilateral wounds redressed, small drainage amount, serosanguanous, wet to dry dressing, kerlex pads, and guaze wrap, no s/s of new or worsening infection, tolerated well prior to dc
[2020-11-10 15:27] VITALS: BP 158/96; PULSE 88; RESP 18; TEMP 36.7; O2SAT 92
[2020-11-10 17:54] VITALS: BP 158/96; PULSE 88; RESP 18; TEMP 36.7; O2SAT 92
[2020-11-10 18:38] LABS: Vancomycin Trough 21.1 ug/mL (10-15)
--- NOTE | 2020-11-10 19:04 | PC.NURSE ---
vanc trough is 21.1- pt was discharged and came back to obtain this .dr mohan contacted and advised nurse to inform pt- 1. No infusion today, pt will need a vanc trough on SUN 2.Home Health contacted to make sure infusion therapy will draw vanc level and call Dr Mohan's office and set up infusion. pt discharged with instructions and vanc level of 21.1
--- NOTE | 2020-11-10 19:40 | PC.NURSE ---
discharge planning Discharge planners contacted, [phone], let msg for them to contact home health and infusion company for this patient to ensure his vanc draw is completed on friday and reported to Dr. Mohan. infusion to follow results.
[2020-11-10 19:44] VITALS: BP 158/96; PULSE 88; RESP 18; TEMP 36.7; O2SAT 92
== END 2020-11-10 19:25 | disposition home or self-care (01) | DRG 638 ==
LOC: ER 21:01 → CSU 23:04 → MEDSURG 11-09 22:49
PROVIDERS: Admitting Provider Internal Medicine; Emergency Provider Family Medicine; PCP Family Medicine; Visit Provider Student in an Organized Health Care Education/Training Program
DX: E11.69 Type 2 diabetes mellitus with other specified complication (principal); M86.672 Other chronic osteomyelitis, left ankle and foot; I13.0 Hypertensive heart and chronic kidney disease with heart failure and stage 1 through stage 4 chronic kidney disease, or unspecified chronic kidney disease; L97.424 Non-pressure chronic ulcer of left heel and midfoot with necrosis of bone; E11.621 Type 2 diabetes mellitus with foot ulcer; E11.51 Type 2 diabetes mellitus with diabetic peripheral angiopathy without gangrene; E11.42 Type 2 diabetes mellitus with diabetic polyneuropathy; E11.22 Type 2 diabetes mellitus with diabetic chronic kidney disease; N18.32 Chronic kidney disease, stage 3b; I50.9 Heart failure, unspecified; I25.5 Ischemic cardiomyopathy; I25.10 Atherosclerotic heart disease of native coronary artery without angina pectoris; I48.91 Unspecified atrial fibrillation; E03.9 Hypothyroidism, unspecified; E78.5 Hyperlipidemia, unspecified; T36.96XA Underdosing of unspecified systemic antibiotic, initial encounter; Z91.128 Patient's intentional underdosing of medication regimen for other reason; Z91.19 Patient's noncompliance with other medical treatment and regimen; Z79.4 Long term (current) use of insulin; Z79.02 Long term (current) use of antithrombotics/antiplatelets; Z79.82 Long term (current) use of aspirin; B96.4 Proteus (mirabilis) (morganii) as the cause of diseases classified elsewhere; B95.62 Methicillin resistant Staphylococcus aureus infection as the cause of diseases classified elsewhere; B95.2 Enterococcus as the cause of diseases classified elsewhere; I25.2 Old myocardial infarction; Z98.61 Coronary angioplasty status
CPT/HCPCS: 36415; 36416; 36592; 71045; 80048; 80053; 80202; 81001; 81003; 82550; 82962; 83540; 83550; 83605; 83880; 84145; 84484; 85025; 85378; 87040; 87641; 93005; 96365; 96367; 96372; 97110; 97161; 97165; 97530; 97535; 99285; G0378; J0295; J0696; J1650; J1815; J2020; J2405; J3370; J7050

== ENCOUNTER → 2020-11-17 13:14 | Day surgery (SDC) | payer MEDICARE, SELFPAY ==
[2020-11-17 13:53] VITALS: BP 137/78; PULSE 54; RESP 18; TEMP 36.7; O2SAT 99
== END ==
PROVIDERS: PCP Family Medicine; Visit Provider Student in an Organized Health Care Education/Training Program
DX: M86.9 Osteomyelitis, unspecified (principal)

== ENCOUNTER → 2020-11-24 13:26 | Day surgery (SDC) | payer MEDICARE, SELFPAY ==
[2020-11-24 14:51] LABS: Basophils # 0.1 10^3/uL (0.0-0.1); Basophils % 1.3 %; Eosinophils # 0.3 10^3/uL (0.0-0.8); Eosinophils % 4.3 %; Hematocrit 30.3 % (42.0-52.0); Hemoglobin 9.4 g/dL (11.7-16.6); Lymphocytes # 1.4 10^3/uL (0.8-4.8); Mean Corpuscular Hemoglobin 30.1 pg (28.0-34.0); Mean Corpuscular Volume 97.1 fL (80-94); Mean Platelet Volume 11.3 fL (7.4-10.4); Monocytes # 0.6 10^3/uL (0.2-0.9); Monocytes % 9.2 %; Neutrophils # 3.78 10^3/uL (1.8-7.7); Nucleated Red Blood Cells % 0 %; Platelet Count 282 10^3/cmm (130-400); Red Blood Count 3.12 10^6/uL (4.1-5.3); Red Cell Distribution Width 18.1 % (12.1-15.1); White Blood Count 6.1 10^3/uL (4.0-10.0)
[2020-11-24 15:16] LABS: Alanine Aminotransferase 11 U/L (0-41); Albumin Level 3.6 g/dL (3.5-5.2); Alkaline Phosphatase 177 IU/L (40-130); Anion Gap 15.1 (5-19); Aspartate Amino Transferase 22 U/L (0-40); Blood Urea Nitrogen 22 mg/dL (8-23); Calcium 8.8 mg/dL (8.5-10.5); Carbon Dioxide 27 mmol/L (22-29); Chloride 98 mmol/L (98-107); Globulin 3.5 g/dL (1.3-4.6); Glucose 118 mg/dL (65-115); Osmolality Calculated 286 mOsm/kg (285-295); Potassium 4.1 mmol/L (3.5-5.1); Sodium 136 mmol/L (136-145); Total Bilirubin 0.5 mg/dL (0.15-1.2); Total Protein 7.1 g/dL (6.6-8.7)
[2020-11-24 15:30] LABS: Vancomycin Trough < 4.0 ug/mL (10-15)
== END ==
PROVIDERS: PCP Family Medicine; Visit Provider Student in an Organized Health Care Education/Training Program
DX: M86.9 Osteomyelitis, unspecified (principal)
CPT/HCPCS: 36592; 80053; 80202; 85025

== ENCOUNTER → 2020-11-28 13:13 | Outpatient (BNVA) | payer MEDICARE, SELFPAY | PROVIDERS: PCP Family Medicine; Visit Provider Student in an Organized Health Care Education/Training Program | DX: M86.9 Osteomyelitis, unspecified (principal); L97.423 Non-pressure chronic ulcer of left heel and midfoot with necrosis of muscle | CPT/HCPCS: 80053; 85025; 85651; 86140; 87070; 87075; 87077; 87184; 87205 ==

== ENCOUNTER 2020-12-12 14:16 | Outpatient (CLI) | payer MEDICARE, SELFPAY | END 2020-12-12 14:17 | disposition home or self-care (01) | LOC: WOUND 14:17 | PROVIDERS: PCP Family Medicine; Visit Provider Nurse Practitioner Family | DX: E11.621 Type 2 diabetes mellitus with foot ulcer (principal); L97.412 Non-pressure chronic ulcer of right heel and midfoot with fat layer exposed | CPT/HCPCS: 11042; 11045; G0463 ==

== ENCOUNTER 2020-12-19 14:53 | Outpatient (CLI) | payer MEDICARE, SELFPAY | END 2020-12-19 14:54 | disposition home or self-care (01) | LOC: WOUND 14:55 | PROVIDERS: PCP Family Medicine; Visit Provider Thoracic Surgery (Cardiothoracic Vascular Surgery) | DX: E11.621 Type 2 diabetes mellitus with foot ulcer (principal); L97.426 Non-pressure chronic ulcer of left heel and midfoot with bone involvement without evidence of necrosis | CPT/HCPCS: 11044; 11047 ==

== ENCOUNTER 2020-12-26 11:14 | Outpatient (CLI) | payer MEDICARE, SELFPAY | END 2020-12-26 11:15 | disposition home or self-care (01) | LOC: WOUND 11:14 | PROVIDERS: PCP Family Medicine; Visit Provider Thoracic Surgery (Cardiothoracic Vascular Surgery) | DX: E11.621 Type 2 diabetes mellitus with foot ulcer (principal); L97.429 Non-pressure chronic ulcer of left heel and midfoot with unspecified severity | CPT/HCPCS: 99212 ==

== ENCOUNTER 2021-01-02 10:59 | Outpatient (CLI) | payer MEDICARE, SELFPAY | END 2021-01-02 11:00 | disposition home or self-care (01) | LOC: WOUND 11:00 | PROVIDERS: PCP Family Medicine; Visit Provider Thoracic Surgery (Cardiothoracic Vascular Surgery) | DX: E11.621 Type 2 diabetes mellitus with foot ulcer (principal); L97.422 Non-pressure chronic ulcer of left heel and midfoot with fat layer exposed | CPT/HCPCS: 11042; 11045 ==

== ENCOUNTER 2021-02-01 21:43 | Emergency (ER) | payer MEDICARE, SELFPAY ==
[2021-02-01 21:58] VITALS: BP 133/77; PULSE 81; RESP 15; TEMP 36.7; O2SAT 96; BMI 28.5
--- NOTE | 2021-02-01 22:10 | XRR_ITS ---
PROCEDURE INFORMATION: Exam: XR Left Foot Exam date and time: 02/01/2021 10:10 PM Age: 80 years old Clinical indication: Cellulitis; Patient HX: Open wound on heel of left foot TECHNIQUE: Imaging protocol: XR Left foot. Views: 3 or more views. Total images: 3 COMPARISON: No relevant prior studies available. FINDINGS: Bones/joints: Transverse fractures through the body of the left os calcis extending to the subtalar articular joint surface. Maximum displacement 14 mm. Concern for coexistent osteomyelitis. Osteoporosis. Hammertoe deformities. Soft tissues: Soft tissue swelling. Open wound at the heel opposite the os calcis fractures and potential osteomyelitis. Vasculature: Arteriosclerosis of diabetes mellitus. XR/XR foot LT min 3V* [id number] IMPRESSION: 1. Transverse fractures through the body of the left os calcis. 2. Concern for coexistent osteomyelitis os calcis. 3. Open wound heel. 4. Soft tissue swelling.
--- NOTE | 2021-02-01 22:32 | W.ED.WOUNDLC ---
HPI - Wound/Laceration General: Chief Complaint: Wound/Laceration Stated Complaint: WEAKNESS Time Seen by Provider: 02/01/21 21:57 Source: patient and EMS Mode of arrival: EMS Limitations: no limitations History of Present Illness: HPI narrative: 80-year-old male has a history of chronic wound on his left heel. He had been seeing wound care for months and was recommended to get an amputation which she is refused multiple times. He states he stopped on wound care 2 weeks ago because he felt like to doing nothing. He states that the wounded ground a little he has some erythema so he called EMS. He denies any fevers. He has had no increase in drainage. Associated symptoms: Denies chills, fever(s), nausea or vomiting Review of Systems Const: Denies: fever(s), chills, body aches or change in appetite Eyes: Denies: blurry vision or eye discomfort ENMT: Denies: throat pain or dental pain Card: Denies: chest pain Resp: Denies: dyspnea GI: Denies: abdominal pain, nausea, vomiting or diarrhea : Denies: dysuria Musc: Denies: neck pain or back pain Skin/Breast: Reports: sores; Denies: rash Neuro: Denies: headache(s) Psych: Denies: depression Rudi/Lymph: Denies: easy bruising All/Imm: Denies: urticaria PFSH ED PFSH: Medical History Anaerobic bacteremia Anemia ASHD (arteriosclerotic heart disease) Atrial fibrillation Cardiomyopathy CHF (congestive heart failure) CKD (chronic kidney disease) 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 Diabetes Diabetes mellitus with diabetic polyneuropathy Dyslipidemia Enterococcus faecalis infection HTN (hypertension) Hypothyroid Ischemic cardiomyopathy MRSA (methicillin resistant Staphylococcus aureus) infection Myocardial infarction Peripheral arterial disease Proteus infection Type 2 diabetes mellitus Surgical History Cleft palate Surgically repaired History of tonsillectomy Leg fracture, left Lower leg fractures repaired with rods and bone grafts S/P peripheral artery angioplasty (~10/2020) S/P PTCA (percutaneous transluminal coronary angioplasty) Family History Other Diabetes Social History Smoking and tobacco status: never smoked Alcohol intake: current Alcohol intake frequency: holidays/special occasions only Household members: spouse Marital status: Physical Exam Const: COMMON NORMALS: no acute distress, patient oriented x3 and healthy appearing HENMT: COMMON NORMALS: normocephalic and atraumatic HEAD & SCALP: normocephalic and atraumatic Eye: COMMON NORMALS: Equal, round and reactive pupils present and EOMs intact bilaterally PUPIL: Yes Equal, round and reactive pupils present Neck/C-Spine: COMMON NORMALS: full ROM and supple Chest: COMMONS NORMALS: normal inspection of the chest and normal palpation of entire chest wall Resp: COMMON NORMALS: normal respiratory effort, No retractions, No use of accessory muscles and clear to auscultation bilaterally AUSCULTATION: clear to auscultation bilaterally Cardio: COMMON NORMALS: regular rate, regular rhythm and No murmurs present (Cardio) RATE: regular rate RHYTHM: regular rhythm GI: COMMON NORMALS: Normal to inspection, nondistended, normoactive bowel sounds present, Soft to palpation, non-tender and no masses PALPATION: Yes Soft to palpation Extremity: COMMON NORMALS: normal to inspection and full ROM Neuro: COMMON NORMALS: patient oriented x3, moves all extremities and no focal motor deficits Psych: COMMON NORMALS: mental status grossly normal, Normal thought process present and cooperative THOUGHT PROCESS: Normal thought process present Skin: COMMON NORMALS: no rashes or lesions noted NARRATIVE SKIN EXAM: large chronic wound to left heel with no erythema GENERAL SKIN EXAM: no rashes or lesions noted Course Vital Signs: Vital signs: Vital Signs Temperature 98.0 F 02/01/21 21:58 Pulse Rate 81 02/01/21 21:58 Respiratory Rate 15 02/01/21 21:58 Blood Pressure 133/77 02/01/21 21:58 Pulse Oximetry 96 02/01/21 21:58 MDM - Wound/Laceration MDM Narrative: Medical decision making narrative: Patient presents with a chronic wound to his heel. His x-ray showed no acute findings from his previous x-ray really. He does have some worsening erythema. I did have the hospitalist Dr. Trejo come and see patient as she knows him well and sees him in her infectious disease clinic. She had seen him down here in the ER and have a group plan with him as well to place him on Cipro and linezolid outpatient. She is seen in clinic and have him follow-up wound care again. He is return if worsening. He still refuses amputation as a plan. Lab Data: Labs: Lab Results 02/01/21 02/01/21 Range/Units 23:14 23:14 WBC 10.3 H (4.0-10.0) 10^3/ uL RBC 3.47 L (4.1-5.3) 10^6/u L Hgb 10.2 L (11.7-16.6) g/dL Hct 33.0 L (42.0-52.0) % MCV 95.1 H (80-94) fL MCH 29.4 (28.0-34.0) pg MCHC 30.9 (30.0-36.0) g/dL RDW 14.5 (12.1-15.1) % Plt Count 344 (130-400) 10^3/c mm MPV 10.4 (7.4-10.4) fL Neut % (Auto) 78.9 % Lymph % (Auto) 11.3 % [place] % (Auto) 8.5 % Eos % (Auto) 0.2 % Baso % (Auto) 0.6 % Neut # (Auto) 8.11 H (1.8-7.7) 10^3/u L Lymph # (Auto) 1.2 (0.8-4.8) 10^3/u L [place] # (Auto) 0.9 (0.2-0.9) 10^3/u L Eos # (Auto) 0.0 (0.0-0.8) 10^3/u L Baso # (Auto) 0.1 (0.0-0.1) 10^3/u L Nucleated RBC % (a uto) 0 % Nucleated RBCs # 0.0 /100WBC Sodium 131 L (136-145) mmol/L Potassium 3.9 (3.5-5.1) mmol/L Chloride 99 (98-107) mmol/L Carbon Dioxide 21 L (22-29) mmol/L Anion Gap 14.9 (5-19) BUN 18 (8-23) mg/dL Creatinine 1.2 (0.7-1.2) mg/dL GFR Calculation Not Reportable Glucose 163 H (65-115) mg/dL Calculated Osmolal ity 277 L (285-295) mOsm/k g Calcium 8.7 (8.5-10.5) mg/dL Total Bilirubin 0.8 (0.15-1.2) mg/dL AST 15 (0-40) U/L ALT 10 (0-41) U/L Alkaline Phosphata se 194 H (40-130) IU/L Total Protein 6.5 L (6.6-8.7) g/dL Albumin 2.7 L (3.5-5.2) g/dL Globulin 3.8 (1.3-4.6) g/dL Imaging Data^: Other Xray: Attestation: I personally reviewed and interpreted this imaging study as follows: Radiologist's impression: [address] [address] XRay Report Signed Patient: Rhett Cotto Unit #: [id number] : 1940 Age/Sex: 80 / M ADM Date: 02/01/21 Loc: ER Room/Bed: Attending Dr: Ordering Provider/Ordering MD: Rocky Millan MD Date of Service: 02/01/21 Procedure(s): XR foot LT min 3V* [id number] Accession Number(s): [id number] Report Number: [id number] PROCEDURE INFORMATION: Exam: XR Left Foot Exam date and time: 02/01/2021 10:10 PM Age: 80 years old Clinical indication: Cellulitis; Patient HX: Open wound on heel of left foot TECHNIQUE: Imaging protocol: XR Left foot. Views: 3 or more views. Total images: 3 COMPARISON: No relevant prior studies available. FINDINGS: Bones/joints: Transverse fractures through the body of the left os calcis extending to the subtalar articular joint surface. Maximum displacement 14 mm. Concern for coexistent osteomyelitis. Osteoporosis. Hammertoe deformities. Soft tissues: Soft tissue swelling. Open wound at the heel opposite the os calcis fractures and potential osteomyelitis. Vasculature: Arteriosclerosis of diabetes mellitus. XR/XR foot LT min 3V* 72810 IMPRESSION: 1. Transverse fractures through the body of the left os calcis. 2. Concern for coexistent osteomyelitis os calcis. 3. Open wound heel. 4. Soft tissue swelling. 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 Condition: Stable Prescriptions: New linezolid 600 mg tablet 600 mg PO BID 14 Days Qty: 28 RF: 0 Continued ciprofloxacin HCl 500 mg tablet 500 mg PO BID 14 Days Qty: 28 RF: 0 No Action doxycycline hyclate 100 mg tablet 100 mg PO BID 30 Days Qty: 60 RF: 0 spironolactone 25 mg tablet 25 mg PO DAILY@07 RF: 0 furosemide 40 mg tablet 40 mg PO BID@,16 RF: 0 potassium chloride 10 mEq tablet extended release 20 meq PO BID@,16 RF: 0 aspirin 81 mg Tablet,Delayed Release (Dr/Ec) 81 mg PO DAILY@07 RF: 0 hydrocodone-acetaminophen 7.5-325 mg Tablet 1 tab PO Q6H PRN (Reason: Pain) RF: 0 omeprazole 20 mg capsule,delayed release(DR/EC) 20 mg PO DAILY@07 RF: 0 metformin 500 mg tablet extended release 24 hr 500 mg PO BID@,16 RF: 0 levothyroxine 75 mcg tablet 150 mcg PO DAILY@07 RF: 0 insulin aspart U-100 [Novolog U-100 Insulin aspart] 100 unit/mL Solution See Rx Instructions .ROUTE .COMPLEX Qty: 10 RF: 0 acetaminophen 325 mg Tablet 325 - 650 mg PO Q4H PRN (Reason: Mild Pain Or Increase Temp) Qty: 60 RF: 0 allopurinol 100 mg Tablet 100 mg PO DAILY Qty: 30 RF: 0 ergocalciferol (vitamin D2) [Vitamin D2] 1,250 mcg (50,000 unit) Capsule 50,000 unit PO Q7D Qty: 4 RF: 0 Lactobacillus acidoph-L.bulgar 1 million cell Tablet 1 tab PO BID Qty: 60 RF: 0 HySept 0.25 % Solution 1 applic topical 0900,2100 Qty: 473 RF: 0 Discharge Orders: Discharge ED (Routine); Ordered 02/02/21 Ordered By: Korby Monty Referrals: Hiwot Trejo MD [Hospitalist] - 02/06/21 Jose Manuel Mooney MD [Primary Care Provider] - WOUND CARE CLINIC, [Staff Physician] - Discharge Diet: Advance as tolerated Discharge Activity: Resume usual activity Patient Instructions: Chronic Wound Care (ED) Coding Level of Care Code ED Air Quality Manager for Chg Fwd Exam Comprehensive
[2021-02-01 23:22] LABS: Basophils # 0.1 10^3/uL (0.0-0.1); Basophils % 0.6 %; Eosinophils % 0.2 %; Hemoglobin 10.2 g/dL (11.7-16.6); Lymphocytes # 1.2 10^3/uL (0.8-4.8); Lymphocytes % 11.3 %; Mean Corpuscular HGB Conc 30.9 g/dL (30.0-36.0); Mean Corpuscular Hemoglobin 29.4 pg (28.0-34.0); Mean Corpuscular Volume 95.1 fL (80-94); Mean Platelet Volume 10.4 fL (7.4-10.4); Monocytes # 0.9 10^3/uL (0.2-0.9); Monocytes % 8.5 %; Neutrophils # 8.11 10^3/uL (1.8-7.7); Neutrophils % 78.9 %; Nucleated Red Blood Cells % 0 %; Platelet Count 344 10^3/cmm (130-400); Red Blood Count 3.47 10^6/uL (4.1-5.3); Red Cell Distribution Width 14.5 % (12.1-15.1); White Blood Count 10.3 10^3/uL (4.0-10.0)
[2021-02-01 23:49] LABS: Alanine Aminotransferase 10 U/L (0-41); Albumin Level 2.7 g/dL (3.5-5.2); Alkaline Phosphatase 194 IU/L (40-130); Anion Gap 14.9 (5-19); Aspartate Amino Transferase 15 U/L (0-40); Blood Urea Nitrogen 18 mg/dL (8-23); Calcium 8.7 mg/dL (8.5-10.5); Carbon Dioxide 21 mmol/L (22-29); Chloride 99 mmol/L (98-107); Globulin 3.8 g/dL (1.3-4.6); Glucose 163 mg/dL (65-115); Osmolality Calculated 277 mOsm/kg (285-295); Potassium 3.9 mmol/L (3.5-5.1); Sodium 131 mmol/L (136-145); Total Bilirubin 0.8 mg/dL (0.15-1.2); Total Protein 6.5 g/dL (6.6-8.7)
[2021-02-02 02:05] VITALS: BP 127/76; PULSE 80; RESP 18; O2SAT 97
[2021-02-02] MEDS: ciprofloxacin 500 mg Tablet PO (02:05)
[2021-02-02] MEDS: linezolid 600 mg Tablet PO (02:08)
--- NOTE | 2021-02-02 02:43 | PM.CONSULT ---
Providers/Reason For Consult Consulting Physician/Specialty*: Hiwot Trejo MD/Infectious Disease Reason for Consult*: Osteomyelitis Primary Care Provider: Jose Manuel Mooney MD History of Present Illness History of Present Illness Rhett Cotto is a 80 year old male known to me from the infectious disease clinic. He follows for chronic osteomyelitis of the left heel. Most recently he was admitted to the hospital in October 2020 at which time bone and blood culture revealed polymicrobial growth. For details please see my office visit from November 28, 2020. He was treated recently with ceftriaxone 2 g IV daily and doxycycline for 6 weeks between 11/09-12/01. Inflammatory markers are trending down at that time. Thereafter he was transitioned to oral ciprofloxacin and doxycycline for 1 month. Patient was additionally referred to wound care as he needed concomitant debridements. Patient has been reluctant to keep following with wound care as he does not believe he is seeing any benefit. Per review of wound care notes he has refused curette debridements, offloading recommendations and also declined hyperbaric treatments. I have discussed with him quite extensively in the past and again today that antibiotics alone are unlikely to be of any benefit in treating his wound. He remains adamantly against amputation. He presented to the ER today as he was concerned about worsening of his wound, he has noticed more discharge recently and feels frustrated because he is experiencing increased difficulty with ambulation. Diagnostics in the ER notable for leukocytsis 10.3, afebrile. X ray foot today shows transverse fractures through the body of the left os calcis with coexistent osteomyelitis os calcis. Denies fever, chills Review of Systems General: Reports: 10 or more systems reviewed and unremarkable except in HPI and below Const: Denies: fever(s), chills or body aches Eyes: Denies: change in vision, blurry vision or photophobia ENMT: Reports: hoarseness; Denies: throat pain, enlarged tonsils, odynophagia or nasal congestion Card: Denies: chest pain, palpitations, irregular heart rhythm, edema, swelling of feet/ankles, lightheadedness, pre-syncope, dyspnea on exertion or orthopnea Resp: Denies: dyspnea, productive cough, non-productive cough, wheezing, stridor, pain on inspiration, change in phlegm color, hemoptysis or chest congestion GI: Denies: abdominal pain, nausea, vomiting, hematemesis, coffee ground emesis, dysphagia, heartburn, diarrhea, constipation, GI cramping, change in stool character, hematochezia or melena : Denies: flank pain, dysuria, urinary frequency, urinary urgency, urinary hesitancy or hematuria Musc: Denies: neck pain, back pain, extremity pain, joint swelling, joint warmth or deformity Neuro: Denies: headache(s), numbness in extremities, weakness in extremities, sensory changes, difficulty walking, frequent falls, dizziness, vertigo, behavioral changes, Slurred speech present or seizure-like activity Psych: Denies: anxiety, depression, suicidal ideation or homicidal ideation Endo: Denies: polyuria, polydipsia, tired all the time, cold intolerance or hot flashes Rudi/Lymph: Denies: easy bruising or easy bleeding Meds/Allergies Home Medications and Allergies Home Medications Medication Instructions Recorded Confirmed Last Taken Type spironolactone 25 mg PO DAILY@08/28/20 11/28/20 10/17/20 History levothyroxine 150 mcg PO DAILY@10/17/20 11/28/20 Unknown History insulin aspart U-100 [Novolog See Rx Instructions .ROUTE 10/28/20 11/28/20 11/03/20 Rx U-100 Insulin aspart] .COMPLEX #10 ml HySept 1 applic TOPICAL 0900,2100 #473 ml 11/02/20 11/28/20 Unknown Rx Lactobacillus acidoph-L.bulgar 1 tab PO BID #60 tab 11/02/20 11/28/20 11/03/20 Rx acetaminophen 325 - 650 mg PO Q4H PRN #60 tab 11/02/20 11/28/20 Unknown Rx allopurinol 100 mg PO DAILY #30 tab 11/02/20 11/28/20 11/03/20 Rx ergocalciferol (vitamin D2) 50,000 unit PO Q7D #4 cap 11/02/20 11/28/20 Unknown Rx [Vitamin D2] aspirin 81 mg PO DAILY@11/06/20 11/28/20 Unknown History furosemide 40 mg PO BID@07,16 11/06/20 11/28/20 Unknown History hydrocodone-acetaminophen 1 tab PO Q6H PRN 11/06/20 11/28/20 Unknown History metformin 500 mg PO BID@11/06/20 11/28/20 Unknown History omeprazole 20 mg PO DAILY@11/06/20 11/28/20 Unknown History potassium chloride 20 meq PO BID@11/06/20 11/28/20 Unknown History doxycycline hyclate 100 mg tablet 100 mg PO BID 30 Days #60 tab 01/02/21 Unknown Rx ciprofloxacin HCl 500 mg PO BID 14 Days #28 tab 02/02/21 Unknown Rx linezolid 600 mg PO BID 14 Days #28 tab 02/02/21 Unknown Rx Allergies Allergy/AdvReac Type Severity Reaction Status Date / Time metronidazole [From Flagyl] Allergy ALGY-Rash Verified 02/01/21 22:03 Current Medications Current Medications Generic Name Dose Route Start Last Admin Trade Name Freq PRN Reason Stop Dose Admin Linezolid 600 mg 02/02/21 01:00 02/02/21 02:08 Linezolid 600 Mg Tablet PO 600 mg ONCE NICHOLAS Administration Protocol PFSH Acute PFSH: Medical History Anaerobic bacteremia Anemia ASHD (arteriosclerotic heart disease) Atrial fibrillation Cardiomyopathy CHF (congestive heart failure) CKD (chronic kidney disease) 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 Diabetes Diabetes mellitus with diabetic polyneuropathy Dyslipidemia Enterococcus faecalis infection HTN (hypertension) Hypothyroid Ischemic cardiomyopathy MRSA (methicillin resistant Staphylococcus aureus) infection Myocardial infarction Peripheral arterial disease Proteus infection Type 2 diabetes mellitus Surgical History Cleft palate Surgically repaired History of tonsillectomy Leg fracture, left Lower leg fractures repaired with rods and bone grafts S/P peripheral artery angioplasty (~10/2020) S/P PTCA (percutaneous transluminal coronary angioplasty) Family History Other Diabetes Social History Smoking and tobacco status: never smoked Alcohol intake: current Alcohol intake frequency: holidays/special occasions only Household members: spouse Marital status: Vitals/I&O/Wt Last Vital Signs Temp 98.0 F 02/01/21 21:58 Pulse 81 02/01/21 21:58 Resp 15 02/01/21 21:58 BP 133/77 02/01/21 21:58 Pulse Ox 96 02/01/21 21:58 Weight last 48 hrs Weight 90.265 kg Physical Exam Narrative: EXAM NARRATIVE: General: No acute distress, AO x3 HEENT: PERRLA, pupils bilaterally equal and reactive, pallors not present Chest: Normal vesicular breath sounds, no added sounds, equal good air entry bilaterally CVS: S1-S2 regular, no murmurs, no tachycardia, no gallops, no rubs Abdomen: Soft, nontender, no organomegaly, bowel sounds present Neuro: No focal deficits, no facial deformity, AO x3, power 5/5 in all limbs Extremities: left heel chronic heel ulcer over calcaneum with discharge. No gross surrounding cellulitic changes. Data Micro: Micro: Microbiology 02/02/21 01:44 Blood Culture - Pr eliminary Blood [facility] 02/02/21 01:30 Blood Culture - Pr eliminary Blood SPECIMEN [facility] A&P Assessment and plan (1) Osteomyelitis: Chronic left heel osteomyelitis with worsening heel ulcer, some discharge, undermining edges and tunneling Past cx from wound with polymicrobes including Enterobacter and MRSA, e fecalis Has not been compliant with wound care follow ups- per notes review he has been refusing curette debridements, HBO, offloading recommendations X ray today additionally with pathological fracture of the calcaneum. Discussed with him that abx alone without concomitant debridement unlikely to be of benefit. He may likely proceed to needing amputation. He is frustrated with his current quality of life 2/2 chronic leg wound however it has been hard to get him to comply with recommendations. He is not interested in going to SNF where he could get extended course of iv abx and intensive wound care. Adamantly declines amputation. No current signs of sepsis, no signs of gross cellulitis, no emergent indication for surgical debridement at this time, however crucial that he follows with wound care as outpatient. Given increased discharge and deeper tunneling at wound will start empriic course of abx with Cipro 500 BID and linezolid 600mg BID for 2 weeks. Check ESR, CRP, wound cx to determine interim colonization with MDRs and blood cx today. Follow up with ID clinic on 02/06/21. Status: Acute Qualifiers: Osteomyelitis type: other chronic Osteomyelitis location: foot Laterality: left Qualified Code(s): M86.672 - Other chronic osteomyelitis, left ankle and foot Coding Level of Care Code Acute Telephone Lines Repairer for g Fwd Diagnoses Osteomyelitis M86.672 Osteomyelitis type: other chronic Osteomyelitis location: foot Laterality: left
[2021-02-02 03:46] LABS: C Reactive Protein 44.6 mg/L (0.0-4.9)
--- NOTE | 2021-02-02 10:31 | DCPLANNER ---
creative services manager had message to schedule a follow up appointment for patient with Wound Care. creative services manager called the Wound Care clinic, spoke with Palak, gave clinic patients information. A follow up appointment was scheduled for Saturday, February 06, 2021 at 10:[address] Espinoza. creative services manager called patient, spoke with his and gave her the appointment information.
--- NOTE | 2021-02-15 08:47 | DCPLANNER ---
Patients appointment scheduled with wound care was cancelled.
== END 2021-02-02 02:05 | disposition home or self-care (01) ==
PROVIDERS: Student in an Organized Health Care Education/Training Program; Emergency Provider Emergency Medicine; PCP Family Medicine
DX: L97.425 Non-pressure chronic ulcer of left heel and midfoot with muscle involvement without evidence of necrosis (principal); Z79.4 Long term (current) use of insulin; Z79.82 Long term (current) use of aspirin; I11.0 Hypertensive heart disease with heart failure; I50.9 Heart failure, unspecified; E11.42 Type 2 diabetes mellitus with diabetic polyneuropathy; E78.5 Hyperlipidemia, unspecified; I25.2 Old myocardial infarction
CPT/HCPCS: 36415; 73630; 80053; 85025; 86140; 87040; 87070; 87077; 87186; 99283